=== PATIENT | male | born 1955 | race Caucasian/White ===

== ENCOUNTER 2020-01-31 14:26 | Outpatient (CLI) | payer OTHER, SELFPAY ==
--- NOTE | ~2020-01-31 | US_ITS ---
EXAMINATION: US scrotum doppler DATE: 01/31/2020 15:43 INDICATION: Testicular swelling. TECHNIQUE: Grayscale and Doppler ultrasound images of the testes were obtained. COMPARISON: None. FINDINGS: The right testis measures 2.7 x 2.9 x 2.9 cm. The left testis measures 4.1 x 3.0 x 3.4 cm. There is normal vascular flow to both testes. The right epididymis is normal with normal vascular hakeem w. The left epididymis is normal with normal vascular flow. There are small bilateral hydroceles. Scr otal skin thickening is noted. IMPRESSION: 1. Small bilateral hydroceles. Reviewed, dictated and finalized at location A.
--- NOTE | ~2020-01-31 | CT_ITS ---
EXAMINATION: CT abdomen pelvis w con DATE: 01/31/2020 15:58 INDICATION: Abdominal distention. TECHNIQUE: Computed tomography (CT) of the abdomen and pelvis was performed with 100 mL Omnipaque 350 intravenous contrast. Automated exposure control and iterative reconstruction technique were employe d. The dose-length product was 2237.52 mGy-cm. COMPARISON: None. FINDINGS: The visualized portions of the lung bases demonstrated mild atelectasis. No pleural effusio n. The heart size is normal. There are coronary artery calcifications. No pericardial effusion. The l iver is normal. Calcifications in the spleen are consistent with old granulomatous disease. The gallb ladder, pancreas, adrenal glands, and kidneys are normal. The prostate is mildly enlarged. There are no dilated loops of bowel. The appendix is normal. There are no pathologically enlarged lymph nodes. There is no free intraperitoneal fluid. There is a small umbilical hernia containing fat. There is rao bcutaneous fat stranding around the umbilical hernia, consistent with inflammation. There is mild tho racal lumbar spondylosis. IMPRESSION: 1. Small umbilical hernia containing fat. Reviewed, dictated and finalized at location A.
[2020-01-31 14:56] LABS: Basophils Absolute Auto 0.1 K/mm3 (0.0-0.1); Basophils Percent Auto 0.5 % (0.2-1.2); Eosinophils Absolute Auto 0.2 K/mm3 (0-0.3); Eosinophils Percent Auto 1.7 % (0-4.4); Hematocrit 42.2 % (42.0-52.0); Hemoglobin 13.5 g/dL (14.0-18.0); Immature Granulocyte Absolute 0.04 K/mm3 (0.00-0.031); Immature Granulocyte Percent A 0.4 % (0-0.5); Lymphocytes Absolute Auto 2.06 K/mm3 (0.9-3.2); Lymphocytes Percent Auto 20.4 % (18.3-44.2); Mean Corpuscular Hemoglobin 29.8 pg (26-34); Mean Corpuscular Volume 93.2 fl (80-100); Monocytes Absolute Auto 0.9 K/mm3 (0.1-0.6); Monocytes Percent Auto 8.9 % (2.6-8.5); Neutrophils Absolute Auto 6.9 K/mm3 (1.3-6.7); Neutrophils Percent Auto 68.1 % (45.5-73.1); Platelet Count Result 189 k/mm3 (150-375); Red Blood Count 4.53 M/mm3 (4.6-6.20); Red Cell Distribution Width 13.4 % (11.5-14.5); White Blood Count 10.1 K/mm3 (4.5-10.0)
[2020-01-31 15:07] LABS: Alanine Aminotransferase 23 U/L (4-50); Albumin Level 4.2 g/dL (3.5-5.1); Alkaline Phosphatase 98 U/L (38-126); Aspartate Amino Transferase 23 U/L (17-59); Bilirubin,Total 0.6 mg/dL (0.2-1.3); Blood Urea Nitrogen 19 mg/dL (9-20); Calcium 9.5 mg/dL (8.4-10.2); Carbon Dioxide 29 mmol/L (22-30); Chloride 104 mmol/L (98-107); Estimated Glomerular Filt Rate > 60; Glucose 149 mg/dL (75-110); Potassium 4.5 mmol/L (3.4-5.0); Sodium 141 mmol/L (137-145)
[2020-01-31 15:15] LABS: NT Pro B Type Natriuretic Pept 529 PG/ML (5-100)
== END 2020-01-31 14:27 | disposition home or self-care (01) ==
PROVIDERS: PCP Family Medicine; Visit Provider Family Medicine
DX: R14.0 Abdominal distension (gaseous) (principal); I25.10 Atherosclerotic heart disease of native coronary artery without angina pectoris; K42.9 Umbilical hernia without obstruction or gangrene; N43.3 Hydrocele, unspecified
CPT/HCPCS: 36415; 74177; 76870; 80053; 83880; 85025; 93976; Q9967

== ENCOUNTER 2020-06-25 10:02 | Inpatient (IN) | payer OTHER, SELFPAY ==
[2020-06-25] VITALS (7 sets, daily range): BP systolic 128–152; BP diastolic 55–83; PULSE 95–110; RESP 12–20; TEMP 36.4–36.6; O2SAT 94–99; BMI 60.9
--- NOTE | ~2020-06-25 | US_ITS ---
EXAMINATION: US scrotum doppler EXAM DATE: 06/25/2020 11:50 INDICATION: Scrotal edema, erythema, pain. TECHNIQUE: Multiple grayscale and Doppler images of the testicles and scrotum were obtained bilateral ly. There is no prior study for comparison. FINDINGS: There is severe scrotal edema. Right testicle measures 3.6 x 2.8 x 2.6 cm and is morphologically normal. Low resistance Doppler hakeem w confirmed. The epididymis is unremarkable. There is a small hydrocele. Left testicle measures 3.8 x 3.2 x 2.8 cm and is morphologically normal. Low resistance Doppler flow confirmed. The epididymis is unremarkable. There is a small hydrocele. IMPRESSION: 1. Severe scrotal edema. 2. Small bilateral hydroceles. 3. Normal testicles. Reviewed, dictated and finalized at location B.
--- NOTE | ~2020-06-25 | US_ITS ---
EXAMINATION: US venous doppler LE EXAM DATE: 06/25/2020 11:51 INDICATION: Bilateral lower extremity edema. Positive d-dimer. Recent surgery. TECHNIQUE: Multiple grayscale, color flow and Doppler images of the lower extremity deep venous syste ms bilaterally were obtained and reviewed. Comparison is made to prior examination from 08/31/2018. FINDINGS: Right side: The right common femoral, femoral veins demonstrate normal color flow, respiratory variat ion, augmentation and compressibility. Compressibility, color flow confirmed within the right poplit eal, posterior tibial, peroneal, and greater saphenous veins. Profunda vein not visualized. Left side: The left common femoral, femoral veins demonstrate normal color flow, respiratory variatio n, augmentation and compressibility. Compressibility, color flow confirmed within the left popliteal , posterior tibial, peroneal, and greater saphenous veins. Profunda vein not visualized. IMPRESSION: 1. No evidence of lower extremity deep venous thrombosis bilaterally. Reviewed, dictated and finalized at location B.
--- NOTE | ~2020-06-25 | US_ITS ---
EXAMINATION: US renal BI DATE: 06/30/2020 09:56 INDICATION: Acute kidney injury. TECHNIQUE: Multiple ultrasound grayscale images of the kidneys were obtained. COMPARISON: CT abdomen and pelvis 01/31/2020 FINDINGS: The right kidney measures 11.2 x 6.5 x 6.6 cm. The left kidney measures 14.3 x 5.8 x 3.5 cm. The kidn eys demonstrate normal parenchymal echogenicity. There is no hydronephrosis. The bladder is decompres sed. IMPRESSION: 1. Normal kidneys. No hydronephrosis. Reviewed, dictated and finalized at location B.
[2020-06-25 10:59] LABS: Basophils Absolute Auto 0.1 K/mm3 (0.0-0.1); Basophils Percent Auto 0.5 % (0.2-1.2); Eosinophils Absolute Auto 0.2 K/mm3 (0-0.3); Eosinophils Percent Auto 1.6 % (0-4.4); Hematocrit 36.4 % (42.0-52.0); Hemoglobin 12.1 g/dL (14.0-18.0); Immature Granulocyte Percent A 0.7 % (0-0.5); Lymphocytes Absolute Auto 4.68 K/mm3 (0.9-3.2); Lymphocytes Percent Auto 33.2 % (18.3-44.2); Mean Corpuscular HGB Conc 33.2 g/dl (32-36); Mean Corpuscular Hemoglobin 29.7 pg (26-34); Mean Corpuscular Volume 89.4 fl (80-100); Mean Platelet Volume 8.7 fl (7.4-10.4); Monocytes Absolute Auto 0.8 K/mm3 (0.1-0.6); Monocytes Percent Auto 5.8 % (2.6-8.5); Neutrophils Absolute Auto 8.2 K/mm3 (1.3-6.7); Neutrophils Percent Auto 58.2 % (45.5-73.1); Platelet Count Result 277 k/mm3 (150-375); Red Blood Count 4.07 M/mm3 (4.6-6.20); Red Cell Distribution Width 13.1 % (11.5-14.5); White Blood Count 14.1 K/mm3 (4.5-10.0)
--- NOTE | 2020-06-25 11:00 | ECG_ITS ---
Measurements Intervals [place] Rate: 99 P: 60 OR: 180 QRS: 31 QRSD: 81 T: 28 QT: 370 QTc: 476 Interpretive Statements SINUS RHYTHM LOW QRS VOLTAGE IN PRECORDIAL LEADS CANNOT RULE OUT SEPTAL INFARCT, AGE INDETERMINATE BASELINE ARTIFACT- V1, V5-V6 ABNORMAL ECG Electronically Signed On 06-25-2020 11:25:01 CDT by Mukesh Diallo D.O.
--- NOTE | 2020-06-25 11:00 | ED.GENADULT ---
HPI - General Adult General Chief complaint: Unspecified <Arianna Livingston PA-C - Last Filed: 06/25/20 13:58> Stated complaint: SCROTAL SWELLING <Arianna Livingston PA-C - Last Filed: 06/25/20 13:58> Time Seen by Provider: 06/25/20 10:11 <Arianna Livingston PA-C - Last Filed: 06/25/20 13:58> Source: patient <ALLI Emerson Last Filed: 06/25/20 13:58> Mode of arrival: wheelchair <ALLI Emerson Last Filed: 06/25/20 13:58> Limitations: no limitations <ALLI Emerson Last Filed: 06/25/20 13:58> History of Present Illness HPI narrative: This is a 64 year old male that presents to the ER for scrotal swelling x 5 days. Reports swelling, redness and pain to the area. Reports he is currently on antibiotics for a UTI. Reports the pain with urination has resolved, but he started to have the scrotal swelling. Reports chronic lower extremity edema. Worsened today. Reports he recently had a left shoulder replacement a week ago. Denies fever, chest pain, or shortness of breath. <Arianna Livingston PA-C - Last Filed: 06/25/20 13:58> Related Data Home medications: Home Medications Medication Instructions Recorded Confirmed aspirin 81 mg tablet,delayed 81 mg PO DAILY 01/31/20 06/11/20 release isosorbide mononitrate 30 mg 30 mg PO DAILY 01/31/20 06/11/20 tablet,extended release 24 hr lisinopril 20 mg tablet 20 mg PO DAILY 01/31/20 06/11/20 metoprolol succinate 25 mg 25 mg PO BID 01/31/20 06/11/20 tablet,extended release 24 hr nitroglycerin 0.4 mg sublingual 0.4 mg SUBLINGUAL Q5M 01/31/20 06/11/20 tablet ticagrelor 90 mg tablet 90 mg PO Q12H 01/31/20 06/11/20 atorvastatin 80 mg tablet 80 mg PO QPM tablet 02/26/20 06/11/20 blood sugar diagnostic #10 each 02/26/20 06/11/20 blood-glucose meter,continuous #1 each 02/26/20 06/11/20 gabapentin BID 06/25/20 <Arianna Livingston PA-C - Last Filed: 06/25/20 13:58> Allergies/adverse reactions: Allergies Allergy/AdvReac Type Severity Reaction Status Date / Time No Known Allergies Allergy Verified 06/25/20 10:38 <Arianna Livingston PA-C - Last Filed: 06/25/20 13:58> Review of Systems Review of Systems: Narrative: CONSTITUTIONAL: Denies fever CARDIOVASCULAR: Reports edema. Denies chest pain RESPIRATORY: Denies dyspnea. GENITOURINARY: Denies dysuria or hematuria. SKIN: Reports erythema <ALLI Emerson Last Filed: 06/25/20 13:58> All systems reviewed & are unremarkable except as noted in HPI and below <Arianna Livingston PA-C - Last Filed: 06/25/20 13:58> [facility] Social History Social History: Social History Smoking status: Former smoker Alcohol intake: current Gender identity (if verbalized by the patient): Male <ALLI Emerson Last Filed: 06/25/20 13:58> Exam Narrative: Exam Narrative: GENERAL: Well-appearing, obese, and in no acute distress. HEAD: Normocephalic, atraumatic. EYES: EOMI. CHEST: Clear to auscultation. No respiratory distress. No wheezes rales or rhonchi HEART: Regular rate and rhythm. No murmur heard. Normal peripheral pulses. ABDOMEN: Soft, nontender, nondistended, normal active bowel sounds. EXTREMITIES: Normal range of motion. No edema. SKIN: Warm, dry, no rash. NEURO: No focal deficits. Alert and oriented x3. PSYCH: Normal mood and affect MALE GENITAL: Diffuse scrotal edema with mild overlying redness <ALLI Emerson Last Filed: 06/25/20 13:58> Course MANAGER INTERFACE/PA Physician Supervision Attestation for Arianna Livingston at 1311. Patient comes in for swollen tender scrotum. He has had this previously at that time they gave him extra diuretic. He has not had fever or chills. [id number] with the patient for 10 minutes. He would like some pain medication. He has nausea but he thinks he would do well with some lunch. I explained about the IV antibiotics being stronger than what he is on no
[2020-06-25 11:08] LABS: Prothrombin Time 12.9 Seconds (11.1-14.7)
[2020-06-25 11:09] LABS: Partial Thromboplastin Time 30.2 SECONDS (22.3-36.8)
[2020-06-25 11:11] LABS: D Dimer 2.01 ug/mL (<0.48)
[2020-06-25 11:30] LABS: Anion Gap 10 mmol/L (8-16); Blood Urea Nitrogen 20 mg/dL (9-20); CRP 3.9 mg/dL (<1.0); Calcium 9.1 mg/dL (8.4-10.2); Carbon Dioxide 29 mmol/L (22-30); Chloride 93 mmol/L (98-107); Estimated CRCL calculation 134 ml/min; Estimated Glomerular Filt Rate > 60; Glucose 371 mg/dL (75-110); Sodium 132 mmol/L (137-145)
[2020-06-25 11:36] LABS: Erythrocyte Sedimentation Rate > 140 mm/hr (0-20)
[2020-06-25 11:44] LABS: NT Pro B Type Natriuretic Pept 154 PG/ML (5-100)
[2020-06-25 13:01] LABS: Add Urine Microscopic? YES; Appearance Urine Clear (Clear); Bilirubin Urine Negative (Negative); Blood Urine 2+ (Negative); Color Urine Yellow (Yellow); Glucose Urine UA 3+ mg/dL (Negative); Ketones Urine Negative (Negative); Leukocyte Esterase Ur Negative LEU/UL (Negative); Mucus Urine Rare /lpf; Nitrate Urine Negative (Negative); Protein Urine Negative (Negative); Specific Grav Ur 1.016 (1.001-1.035); Squamous Epithelial Cell Urine Few /hpf (Few); Urobilinogen Urine Negative mg/dL (<2.0); WBC Urine 0-3 /hpf
[2020-06-25 14:08] LABS: Glucose Point of Care 395 (65-105)
[2020-06-25] MEDS: INSULIN HUMAN REGULAR (*BKC) 100 UNITS/ML 15 UNITS SUB-Q (14:11)
[2020-06-25] MEDS: MORPHINE SULFATE 4 MG/ML INJ IV PUSH (14:13)
[2020-06-25] MEDS: SODIUM CHLORIDE 0.9% IV 1,000 ML 999 ML IV CONT (14:13)
[2020-06-25 14:26] LABS: Lactic Acid Reflex 1.2 mmol/L (0.7-2.1)
[2020-06-25 15:02] LABS: Glucose Point of Care 408 (65-105)
--- NOTE | 2020-06-25 15:36 | WPDURCON ---
Assessment and Plan Assessment and plan (1) Cellulitis of scrotum: Code(s): N49.2 - Inflammatory disorders of scrotum Status: Acute Assessment and Plan: Continue IV antibiotics, will continue to monitor. No surgical intervention needed as there doesn't appear to be an abscess present. (2) Microhematuria: Code(s): R31.29 - Other microscopic hematuria Status: Acute Assessment and Plan: Will send urine culture and obtain CT scan of upper tracts. Urology Consult Note HPI Date Seen: 06/25/20 Requesting Physician: Opal Camp MD Primary Care Provider: Jaya Dailey MD Consult Narrative Narrative: Hong Quinonez is a 64 year old male who presents to the ER today for a swollen scrotum that is red and painful. He states it started 5 days ago and has worsened. He has been on Ciprofloxacin for a UTI for 10 days, however his urine cultures continue to be negative. He is a poorly controlled diabetic patient, but states that this happened only one other time and diuretics took care of it, which he still takes orally. His WBC is 14.1, creatinine 0.80, UA shows 2+ blood and Scrotal US shows severe scrotal edema, small bilateral hydroceles and normal testicles. Review of Systems Cardiovascular: Cardiovascular: Denies chest pain Respiratory: Respiratory: Reports no additional respiratory complaints Gastrointestinal: Gastrointestinal: Denies abdominal pain, Denies nausea and Denies vomiting Genitourinary: Genitourinary: Denies dysuria, Denies flank pain, Reports scrotal swelling, Denies testicular pain, Denies urinary frequency and Denies urinary urgency [facility] Past Medical History Medical History Abdominal distention ASHD (arteriosclerotic heart disease) Congestive heart failure Depression with anxiety Essential (primary) hypertension Insomnia Leg edema PERLITA on CPAP Polyneuropathy, unspecified Pure hypercholesterolemia Type 2 diabetes mellitus without complication, with long-term current use of insulin Umbilical hernia Family History Family History Father Family history of malignant neoplasm Mother Family history of kidney disease Other Cerebrovascular accident Diabetes mellitus Family history of arthritis Family history of coronary artery disease Family history of elevated blood lipids Family history of glaucoma Family history of hypercholesterolemia Family history of obesity Hypertension Social History Social History Smoking status: Former smoker Alcohol intake: current Gender identity (if verbalized by the patient): Male Meds Home Medications and Allergies Home Medications Medication Instructions Recorded Confirmed Type aspirin 81 mg tablet,delayed 81 mg PO DAILY 01/31/20 06/11/20 History release isosorbide mononitrate 30 mg 30 mg PO DAILY 01/31/20 06/11/20 History tablet,extended release 24 hr lisinopril 20 mg tablet 20 mg PO DAILY 01/31/20 06/11/20 History metoprolol succinate 25 mg 25 mg PO BID 01/31/20 06/11/20 History tablet,extended release 24 hr nitroglycerin 0.4 mg sublingual 0.4 mg SUBLINGUAL Q5M 01/31/20 06/11/20 History tablet ticagrelor 90 mg tablet 90 mg PO Q12H 01/31/20 06/11/20 History atorvastatin 80 mg tablet 80 mg PO QPM tablet 02/26/20 06/11/20 History blood sugar diagnostic #10 each 02/26/20 06/11/20 History blood-glucose meter,continuous #1 each 02/26/20 06/11/20 History insulin lispro 100 unit/mL 230 - 260 unit CONTINUOUS 02/26/20 06/11/20 Rx subcutaneous solution SUBCUTANEOUS INFUSION DAILY 28 Days #80 ml furosemide 40 mg tablet 40 mg PO QAM #90 tablet 03/06/20 06/11/20 Rx sertraline 100 mg tablet 100 mg PO DAILY #90 tablet 03/24/20 06/11/20 Rx ciprofloxacin HCl 500 mg tablet 500 mg PO Q12H #42 tablet 06/11/20 06/11/20 Rx metolazo
--- NOTE | 2020-06-25 16:32 | ADMGEN ---
This patient, Hong Quinonez, was admitted to 2 Medical Room 254-01. Patient/family oriented to hospital policies and general routines including ID bracelet, bed and alarms, visiting hours, pain management, procedures, bathroom and other care routines, personal items, smoking policy, room service/diet, and visiting hours. Valuables list has been completed. Information on how to activate the Rapid Response Team has been discussed. Patient/Family are encouraged to report perceived risks to care and to ask questions if they do not understand what they are told or what they should do.
[2020-06-25 17:11] LABS: Glucose Point of Care 325 (65-105)
[2020-06-25 18:33] LABS: Glucose Point of Care 219 (65-105)
--- NOTE | 2020-06-25 19:40 | PM.IMHP ---
H&P: HPI History of Present Illness Date/Time: 06/25/20 19:40 Chief complaint: Scrotal cellulitis Narrative: Hong Quinonez is a 64 year old male who has a history of congestive heart and diabetes. The patient has had a scrotal infection in the past and was treated with Keflex outpatient. According to the urology note the patient had been started on Cipro for UTI for 10 days and that his scrotum has gotten more swollen last 5 days. The patient does take diuretics for lower extremity edema and abdominal edema 1st congestive heart failure. He was prescribed a Zaiz scrotal support here but is a large will not fit him. He said he has pain when he urinates. He has the scrotal swelling and lower extremity swelling patient had his left shoulder replaced about 1 week ago at [facility]. He denies any fever chills. His left arm is in a sling. His white count is 14.1. Scrotal ultrasound was seen as severe scrotal edema. Small bilateral hydroceles. Normal testes. Urology has been consulted and has already seen the patient they are agreeable with the antibiotics. Patient is lower extremities were discolored and a venous Doppler was ordered there was no evidence of lower extremity deep vein thrombosis bilaterally. The patient is on Lasix and says that he takes it every day as prescribed. He was started on Primaxin and vancomycin since he is diabetic. His blood sugars were noted to be in the 300s. The patient has an insulin pump and we had a long discussion about what to do with his blood sugars. The patient stated that he can continue to give himself boluses every couple hours. The patient stated that he would rather manage his himself and that he does not want us to manage it so he did sign the agreement that he would be managing added himself with the pump. His blood sugars then came down in the 200s. As CT of the abdomen with and without contrast has been ordered. I spent approximately 50 minutes with this patient date of service is 06/25/2020 Review of Systems Review of Systems: All systems reviewed & are unremarkable except as noted in HPI and below Constitutional: Constitutional: Reports as per HPI and Reports no additional constitutional complaints Eyes: Eyes: Reports as per HPI and Reports no additional eye complaints ENT: Reports system reviewed and no additional complaints, except as documented and Reports Normal hearing present Cardiovascular: Cardiovascular: Reports no additional cardiovascular complaints Respiratory: Respiratory: Reports no additional respiratory complaints and Reports no additional respiratory complaints Gastrointestinal: Gastrointestinal: Reports as per HPI and Reports no additional gastrointestinal complaints Musculoskeletal: Musculoskeletal: Reports no additional musculoskeletal complaints Integumentary/Breasts: Skin/Breast: Reports system reviewed and no additional complaints, except as docu and Reports as per HPI Neurologic: Reports system reviewed and no additional complaints, except as documented, Reports as per HPI and Reports Normal hearing present Psychiatric: Psychiatric: Reports no additional psychiatric complaints and Reports as per HPI Endocrine: Endocrine: Reports no additional endocrine complaints Hematologic/Lymphatic: Hematologic/Lymphatic: Reports no additional hematologic/lymphatic complaints Allergic/Immunologic: Allergic/Immunologic: Reports no additional allergic/immunologic complaints [facility] Past Medical History Medical History (Updated 06/25/20 @ 20:12 by Nel Henriquez NP) Abdominal distention ASHD (arteriosclerotic heart disease) CAD (coronary artery disease) Congestive heart failure Depression Depression with anxiety Essential (primary) hypertension Hyperlipidemia Insomnia Leg edema PERLITA on CPAP Polyneuropathy, unspecified Pure hypercholesterolemia Type 2 diabetes mellitus without complication, with long-term current use of insulin Umbilical hernia Surgical H
[2020-06-25] MEDS: CALCIUM CARBONATE (TUMS) 500 MG (200 MG ELEMENTAL) PO (21:18)
[2020-06-25] MEDS: oxyCODONE/ACETAMINOPHEN 5-325 MG TABLET 1 TABLET PO (21:18)
[2020-06-25] MEDS: TICAGRELOR 90 MG TABLET PO (21:18)
[2020-06-25 23:31] LABS: Glucose Point of Care 194 (65-105)
--- NOTE | 2020-06-26 | ECHO_ITS ---
Patient Info Name: Hong Quinonez Age: 64 years : 1955 Gender: Male Ht: 68 in Wt: 400 lbs BSA: 3.07 m2 HR: 93 bpm BP: 138 / 64 mmHg Technical Quality: Poor Exam Date: 06/26/2020 9:25 AM Exam Location: [facility] Patient Status: Inpatient Admit Date: 06/25/2020 Staff Ordering Physician: Nel Henriquez NP Maintenance And Operations Supervisor: Lisa Ellison RDCS Attending Provider: Opal Camp MD Referring Physician: Martinez SHOOK; Exam Type: CA echo limited w contrast Study Info Indications I50.9 - Heart failure, unspecified ECHO LIMITED WITH CONTRAST. Reason for Poor Study: patient body habitus Summary 1. Technically suboptimal study due to poor sonographic images. 2. Left ventricular chamber dimension is mildly enlarged. 3. Left ventricular systolic function is normal, estimated at 60-65%. 4. Definity contrast administered improved wall motion interpretation. 5. There is mildly increased left ventricular wall thickness. 6. The left ventricular diastolic function is grade I diastolic dysfunction. 7. Left atrial chamber dimension is mildly enlarged. 8. No pulmonary hypertension, estimated pulmonary arterial systolic pressure is 21 mmHg. Left Ventricle Tissue doppler is not performed. Technically suboptimal study due to poor sonographic images. Definity contrast administered improved wall motion interpretation. Left ventricular chamber dimension is mildly enlarged. Left ventricular systolic function is normal, estimated at 60-65%. There is mildly increased left ventricular wall thickness. The left ventricular diastolic function is grade I diastolic dysfunction. Right Ventricle Right ventricular chamber dimension is not well visualized. Left Atria Left atrial chamber dimension is mildly enlarged. Right Atria Right atrial chamber dimension is not well visualized. Aortic Valve The aortic valve is not well visualized. There is no aortic valve stenosis. There is no aortic valve regurgitation. Pulmonic Valve The pulmonic valve is not well visualized. Mitral Valve There is no mitral valve stenosis. There is no mitral valve regurgitation. Tricuspid Valve The tricuspid valve leaflets are not well visualized. There is no tricuspid valve regurgitation. No pulmonary hypertension, estimated pulmonary arterial systolic pressure is 21 mmHg. Pericardium/Pleural There is no pericardial effusion. Aorta The aortic root size at the sinus of Valsalva is normal. Left Ventricular Outflow Tract Name Value Normal LVOT 2D LVOT Diameter 2.2 cm Pulmonic Valve Name Value Normal PV Doppler PV Peak Gradient 4 mmHg Mitral Valve Name Value Normal MV Doppler MV
--- NOTE | 2020-06-26 01:17 | PC.NURSE ---
pt. left floor at 12:35 for CTA. pt. returned to floor at 01:04.
[2020-06-26 05:50] LABS: Basophils Absolute Auto 0.1 K/mm3 (0.0-0.1); Basophils Percent Auto 0.4 % (0.2-1.2); Eosinophils Absolute Auto 0.2 K/mm3 (0-0.3); Eosinophils Percent Auto 1.2 % (0-4.4); Hematocrit 36.5 % (42.0-52.0); Hemoglobin 12.3 g/dL (14.0-18.0); Immature Granulocyte Absolute 0.13 K/mm3 (0.00-0.031); Immature Granulocyte Percent A 0.8 % (0-0.5); Lymphocytes Absolute Auto 5.12 K/mm3 (0.9-3.2); Mean Corpuscular HGB Conc 33.7 g/dl (32-36); Mean Corpuscular Hemoglobin 29.6 pg (26-34); Mean Platelet Volume 8.6 fl (7.4-10.4); Monocytes Percent Auto 5.9 % (2.6-8.5); Neutrophils Percent Auto 60.7 % (45.5-73.1); Platelet Count Result 302 k/mm3 (150-375); Red Blood Count 4.15 M/mm3 (4.6-6.20); Red Cell Distribution Width 12.8 % (11.5-14.5); White Blood Count 16.5 K/mm3 (4.5-10.0)
[2020-06-26 06:00] VITALS: BP 138/64; PULSE 93; RESP 16; TEMP 36.4; O2SAT 96
[2020-06-26 06:00] LABS: Hemoglobin A1C 8.8 % (<5.7)
[2020-06-26 06:06] LABS: Estimated CRCL calculation 152 ml/min; Estimated Glomerular Filt Rate > 60; Lactate Dehydrogenase 456 U/L (313-618); Lactic Acid 1.3 mmol/L (0.7-2.1)
[2020-06-26 06:33] LABS: Glucose Point of Care 251 (65-105)
--- NOTE | 2020-06-26 08:35 | WPDUROPN2 ---
Progress Note: A&P Assessment and Plan (1) Microhematuria: Code(s): R31.29 - Other microscopic hematuria Status: Acute Assessment and Plan: Will evaluate CT results, then recommend follow up in the office for a cystoscope if hematuria continues. (2) Cellulitis of scrotum: Code(s): N49.2 - Inflammatory disorders of scrotum Status: Acute Assessment and Plan: Continue IV antibiotics, tailor to culture results. Patient's tachycardia has improved today, however is WBC has slightly increased. Scrotum is much less tender on exam today, however the edema has not improved. Continue to elevated scrotum. Will continue to monitor. Subjective Subjective Date/Time Seen: 06/26/20 08:35 Cellulitis of Scrotum/Microhematuria Review of Systems Cardiovascular: Cardiovascular: Denies chest pain Respiratory: Respiratory: Reports no additional respiratory complaints Gastrointestinal: Gastrointestinal: Denies abdominal pain, Denies nausea and Denies vomiting Genitourinary: Genitourinary: Reports genital pain, Denies dysuria, Denies flank pain, Reports scrotal swelling, Denies urinary frequency and Denies urinary hesitancy Exam Resp: Effort & Inspection: normal respiratory effort Cardio: Rate: regular rate GI: GI Palp: Yes Soft to palpation and No Tenderness to palpation present (GI) : Scrotum: no ecchymosis, edematous and scrotal swelling Extrem: General: no edema Objective Data Vital Signs Vital Signs: Vital Signs - 24 hr 06/25/20 10:18 06/25/20 10:21 06/25/20 10:35 Temperature 97.5 F L Pulse Rate 99 99 Respiratory Rate 16 16 Blood Pressure Pulse Oximetry 99 98 06/25/20 13:58 06/25/20 14:57 06/25/20 15:27 Temperature 97.8 F Pulse Rate 104 H 95 110 H Respiratory Rate 20 16 17 Blood Pressure 134/65 152/83 H 144/72 H Pulse Oximetry 97 94 97 06/25/20 21:14 06/26/20 06:00 Temperature 97.6 F 97.6 F Pulse Rate 100 93 Respiratory Rate 12 16 Blood Pressure 128/55 L 138/64 Pulse Oximetry 96 96 Intake/Output Intake/Output: Intake & Output 06/23/20 06/24/20 06/25/20 06/26/20 23:59 23:59 23:59 23:59 Intake Total 2340 1450 Output Total 1100 670 Balance 1240 780 Meds/Results Medications: Active Medications Generic Name Dose Route Start Last Admin Trade Name Freq PRN Reason Stop Dose Admin Aspirin 81 mg 06/26/20 09:00 Aspirin Ec PO DAILY [facility] Atorvastatin Calcium 80 mg 06/26/20 18:00 Lipitor PO QPM ADALBERTO Calcium Carbonate 200 mg 06/25/20 20:47 06/25/20 21:18 Tums PO 200 mg Q6H PRN Administration Indigestion Gabapentin 800 mg 06/26/20 09:00 Neurontin PO BID ADALBERTO Imipenem/Cilastatin Sodium 500 mg in 100 mls @ 300 mls/hr 06/25/20 18:00 06/26/20 06:35 Primaxin 500 Mg/D5w 100 Ml IVPB Infused Q6HR ADALBERTO Infusion Vancomycin HCl 2,000 mg in 500 mls @ 250 mls/hr 06/26/20 02:00 06/26/20 03:55 Vancomycin 2,000 Mg/D5w 500 Ml IVPB Infused Q12H ADALBERTO Infusion Insulin Human Regular 230 - 260 each 06/26/20 08:00 Home Medication Insulin SUB-Q ACINSULIN [facility] Isosorbide Mononitrate 30 mg 06/26/20 09:00 Imdur PO DAILY [facility] Lisinopril 20 mg 06/26/20 09:00 Prinivil PO DAILY [facility] Metolazone 5 mg 06/26/20 09:00 Zaroxolyn PO DAILY [facility] Metoprolol Succinate 25 mg 06/26/20 09:00 Toprol Xl PO Q12HR [facility] Sertraline HCl 100 mg 06/26/20 09:00 Zoloft PO DAILY [facility] Ticagrelor 90 mg 06/25/20 21:00 06/25/20 21:18 Brilinta PO 90 mg Q12HR ADALBERTO Administration Radiology Results: ITS Impressions Venous Doppler Study 06/25/20 11:53 IMPRESSION: 1. No evidence of lower extremity deep venous thrombosis bilaterally. Scrotum Ultrasound 06/25/20 11:54 IMPRESSION: 1. Severe scrotal edema. 2. Small bilateral hydroceles. 3. Normal testicles. Labs Labs: Laboratory Results - last 24 hr 06/25/20 0
[2020-06-26 09:10] VITALS: PULSE 93
[2020-06-26] MEDS: ASPIRIN 81 MG ENTERIC TABLET PO (09:10)
[2020-06-26] MEDS: GABAPENTIN 400 MG CAPSULE 800 MG PO ×2 (09:10→17:31)
[2020-06-26] MEDS: METOPROLOL SUCCINATE EXT REL 25 MG TABCR PO ×2 (09:10→20:10)
[2020-06-26] MEDS: ISOSORBIDE MONONITRATE 30 MG TAB.ER.24H PO (09:10)
[2020-06-26] MEDS: lisinopriL 20 MG TABLET PO (09:11)
[2020-06-26] MEDS: SERTRALINE HCL 50 MG TABLET 100 MG PO (09:11)
[2020-06-26] MEDS: metOLazone 5 MG TABLET PO (09:11)
[2020-06-26] MEDS: TICAGRELOR 90 MG TABLET PO ×2 (09:11→20:10)
[2020-06-26] MEDS: PERFLUTREN LIPID MICROSPHERES 1.5 ML VIAL DILUTED TO 10 ML TOTAL VOLUME IV PUSH (09:54)
[2020-06-26] MEDS: CALCIUM CARBONATE (TUMS) 500 MG (200 MG ELEMENTAL) PO (10:06)
[2020-06-26 11:39] LABS: Glucose Point of Care 269 (65-105)
[2020-06-26] MEDS: FUROSEMIDE INJ 40 MG/4 ML VIAL IV PUSH (11:55)
--- NOTE | 2020-06-26 13:17 | PM.IMPN ---
Progress Note: A&P Assessment and Plan (1) Cellulitis of scrotum: Code(s): N49.2 - Inflammatory disorders of scrotum Status: Acute Assessment and Plan: continue with Primaxin and vancomycin. Urology has seen the patient. He is too big to be able to wear the scrotal support at this time. I encouraged patient to keep his feet above his head. Blood and urine cultures are pending. 06/26/20 13:17 Patient is 64-year-old male morbidly obese with BMI of 60 past medical history of type 1 diabetes on insulin pump, congestive heart failure S/P left shoulder surgery about a week ago and Pt has history of scrotal cellulitis, presented to emergency department with a complaint of redness swelling and tenderness along his scrotum patient had a ultrasound it showed 1. Severe scrotal edema. 2. Small bilateral hydrocele and normal testicle, patient is diagnosed with cellulitis and being treated with vancomycin and imipenem, with extensive edema along his scrotum and pelvis will start the patient on IV Lasix to help in diureses as well as restrict fluid intake to 1800 cc per day, seen by urologist agree with the current management and ordered CT scan of the pelvis however patient is quite morbidly obese and he has a pain and is left shoulder unable to do the imaging. plan is to continue to monitor hopefully with diuresing and antibiotics will improve his symptoms. (2) Congestive heart failure: Qualifiers: Heart failure type: unspecified Heart failure chronicity: chronic Qualified Code(s): I50.9 - Heart failure, unspecified Code(s): I50.9 - Heart failure, unspecified Status: Chronic Assessment and Plan: I did order an echo and a changes Lasix to IV. He is on isosorbide as well and lisinopril. He is also on metoprolol. he is also on Zaroxolyn. (3) Morbid obesity: Code(s): E66.01 - Morbid (severe) obesity due to excess calories Status: Acute Assessment and Plan: Patient's BMI is 60. He may need some dietary counseling. I saw that he had had some in the past. (4) Essential (primary) hypertension: Code(s): I10 - Essential (primary) hypertension Status: Acute Assessment and Plan: Continue with metoprolol. I changes Lasix to IV. He is also on lisinopril (5) PERLITA on CPAP: Code(s): G47.33 - Obstructive sleep apnea (adult) (pediatric); Z99.89 - Dependence on other enabling machines and devices Status: Acute Assessment and Plan: Continue with CPAP machine (6) Type 2 diabetes mellitus without complication, with long-term current use of insulin: Code(s): E11.9 - Type 2 diabetes mellitus without complications; Z79.4 - FDC (current) use of insulin Status: Acute Assessment and Plan: patient made an agreement with us that he would use his insulin pump we do have a down in the 200s now. He will be monitoring his blood sugars and he will bolus himself with his insulin pump. He has a continues basal rate. He also has the ability to bolus himself as well. (7) Hyperlipidemia: Code(s): E78.5 - Hyperlipidemia, unspecified Status: Chronic Assessment and Plan: Continue with atorvastatin (8) CAD (coronary artery disease): Code(s): I25.10 - Atherosclerotic heart disease of [place] coronary artery without angina pectoris Status: Chronic Assessment and Plan: patient is on Brilinta, aspirin and isosorbide. He is also on metoprolol. He has had a total of 4 stents. (9) Depression: Code(s): F32.9 - Major depressive disorder, single episode, unspecified Status: Chronic Assessment and Plan: continue with Zoloft. Additional Plan Patient had left shoulder surgery approximately 1 week ago at [facility] the area looks well approximated without any signs and symptoms of infection. Subjective Date/time seen: 06/26/20 13:17 Patient is 64-year-old male morbidly obese with BMI of 60 pa
--- NOTE | 2020-06-26 13:26 | PCDIET ---
Nutrition Consult Complete: Pt current nutrition is [facility] Nutrition recommendation: Agree Last recorded weight is 181.7 kg. Labs Reviewed: 8.8 A1c Additional Notes: Pt here on insulin pump with A1c of 8.8. Pt states he understands [facility] diet. Pt eats three meals a day and states he eats less than he used to. He was having pot roast with broccoli today. Pt encouraged to limit carbs to 60g or under at each meal and focus on protein and non-starchy veggies. Pt encouraged to eat at regular intervals. Pt declined handouts or further edu and states he understands where carbs are found and how they effect blood sugar. Thank you for the consult.
[2020-06-26 14:00] VITALS: BP 118/54; PULSE 92; RESP 16; TEMP 36.5; O2SAT 97
[2020-06-26 16:35] LABS: Glucose Point of Care 365 (65-105)
[2020-06-26] MEDS: ATORVASTATIN 40 MG TABLET 80 MG PO (17:31)
[2020-06-26] MEDS: INSULIN ASPART (*BKC) 100 UNITS/ML 300 UNITS XX (18:43)
[2020-06-26 20:10] VITALS: PULSE 90
[2020-06-26 20:20] VITALS: BP 108/57; PULSE 90; RESP 12; TEMP 37; O2SAT 98
[2020-06-26 20:47] LABS: Glucose Point of Care 390 (65-105)
[2020-06-27 01:44] LABS: Vancomycin Trough 16.3 ug/mL (10.0-20.0)
[2020-06-27 03:07] LABS: Glucose Point of Care 330 (65-105)
[2020-06-27 05:11] LABS: Basophils Absolute Auto 0.1 K/mm3 (0.0-0.1); Basophils Percent Auto 0.4 % (0.2-1.2); Eosinophils Absolute Auto 0.2 K/mm3 (0-0.3); Eosinophils Percent Auto 1.3 % (0-4.4); Hematocrit 37.8 % (42.0-52.0); Hemoglobin 12.5 g/dL (14.0-18.0); Immature Granulocyte Absolute 0.13 K/mm3 (0.00-0.031); Immature Granulocyte Percent A 0.8 % (0-0.5); Lymphocytes Absolute Auto 5.38 K/mm3 (0.9-3.2); Lymphocytes Percent Auto 34.3 % (18.3-44.2); Mean Corpuscular HGB Conc 33.1 g/dl (32-36); Mean Corpuscular Hemoglobin 29.7 pg (26-34); Mean Corpuscular Volume 89.8 fl (80-100); Mean Platelet Volume 8.7 fl (7.4-10.4); Monocytes Absolute Auto 1.1 K/mm3 (0.1-0.6); Neutrophils Absolute Auto 8.8 K/mm3 (1.3-6.7); Neutrophils Percent Auto 56.2 % (45.5-73.1); Platelet Count Result 313 k/mm3 (150-375); Red Blood Count 4.21 M/mm3 (4.6-6.20); Red Cell Distribution Width 13.2 % (11.5-14.5); White Blood Count 15.7 K/mm3 (4.5-10.0)
[2020-06-27 05:30] LABS: Anion Gap 9 mmol/L (8-16); Blood Urea Nitrogen 18 mg/dL (9-20); Calcium 9.5 mg/dL (8.4-10.2); Carbon Dioxide 32 mmol/L (22-30); Chloride 89 mmol/L (98-107); Estimated CRCL calculation 134 ml/min; Estimated Glomerular Filt Rate > 60; Glucose 353 mg/dL (75-110); Potassium 3.9 mmol/L (3.4-5.0); Sodium 130 mmol/L (137-145)
[2020-06-27 06:00] VITALS: BP 108/69; PULSE 78; RESP 18; TEMP 36.4; O2SAT 97
[2020-06-27 06:57] LABS: Glucose Point of Care 351 (65-105)
[2020-06-27] MEDS: ISOSORBIDE MONONITRATE 30 MG TAB.ER.24H PO (07:56)
[2020-06-27] MEDS: ASPIRIN 81 MG ENTERIC TABLET PO (07:56)
[2020-06-27] MEDS: lisinopriL 20 MG TABLET PO (07:56)
[2020-06-27] MEDS: SERTRALINE HCL 50 MG TABLET 100 MG PO (07:56)
[2020-06-27] MEDS: metOLazone 5 MG TABLET PO (07:56)
[2020-06-27 07:57] VITALS: PULSE 78
[2020-06-27] MEDS: TICAGRELOR 90 MG TABLET PO ×2 (07:57→20:28)
[2020-06-27] MEDS: METOPROLOL SUCCINATE EXT REL 25 MG TABCR PO ×2 (07:57→20:27)
[2020-06-27] MEDS: GABAPENTIN 400 MG CAPSULE 800 MG PO ×2 (07:57→17:18)
[2020-06-27] MEDS: FUROSEMIDE INJ 40 MG/4 ML VIAL IV PUSH ×2 (07:57→17:18)
--- NOTE | 2020-06-27 08:52 | WPDUROPN2 ---
Progress Note: A&P Assessment and Plan (1) Morbid obesity: Code(s): E66.01 - Morbid (severe) obesity due to excess calories Status: Acute (2) Scrotal swelling: Code(s): N50.89 - Other specified disorders of the male genital organs Status: Acute Assessment and Plan: This is likely just scrotal edema versus cellulitis, his WBC is improving slightly, but the overall edema is not, it is not red or warm to touch as it would be with cellulitis, there are also no abscess's present. We discussed that this can take weeks of elevation to resolve despite being on lasix. No further intervention planned at this time, will have him follow up in the office. I encouraged scrotal elevation as much as possible to relieve the edema, as well as weight loss. (3) Microhematuria: Code(s): R31.29 - Other microscopic hematuria Status: Acute Assessment and Plan: Unable to get CT done d/t his shoulder immobility and body habitus. Will address down the road if he is able to loose weight or we can send him to [place] to get it done. No further evaluation at this time. Subjective Subjective Date/Time Seen: 06/27/20 08:52 Scrotal Edema No improvement Review of Systems Cardiovascular: Cardiovascular: Denies chest pain Respiratory: Respiratory: Reports no additional respiratory complaints Gastrointestinal: Gastrointestinal: Denies abdominal pain, Denies nausea and Denies vomiting Genitourinary: Genitourinary: Reports scrotal swelling, Denies testicular pain, Denies urinary frequency and Denies urinary urgency Exam Resp: Effort & Inspection: normal respiratory effort Cardio: Rate: regular rate GI: GI Palp: No Soft to palpation and No Tenderness to palpation present (GI) : General: Yes no CVA tenderness Scrotum: edematous, no masses and scrotal swelling Extrem: General: no edema Objective Data Vital Signs Vital Signs: Vital Signs - 24 hr 06/26/20 09:10 06/26/20 14:00 06/26/20 20:10 Temperature 97.7 F Pulse Rate 93 92 90 Respiratory Rate 16 Blood Pressure 118/54 L Pulse Oximetry 97 06/26/20 20:20 06/27/20 06:00 06/27/20 07:57 Temperature 98.6 F 97.6 F Pulse Rate 90 78 78 Respiratory Rate 12 18 Blood Pressure 108/57 L 108/69 Pulse Oximetry 98 97 Intake/Output Intake/Output: Intake & Output 06/24/20 06/25/20 06/26/20 06/27/20 23:59 23:59 23:59 23:59 Intake Total 2340 2980 600 Output Total 1100 670 Balance 1240 2310 600 Meds/Results Medications: Active Medications Generic Name Dose Route Start Last Admin Trade Name Freq PRN Reason Stop Dose Admin Hydrocodone Bitart/Acetaminophen 1 tab 06/26/20 10:26 06/27/20 07:51 [place] 7.5-325 Mg PO 1 tab Q6H PRN Administration Pain Rated 7-10 Aspirin 81 mg 06/26/20 09:00 06/27/20 07:56 Aspirin Ec PO 81 mg DAILY ADALBERTO Administration Atorvastatin Calcium 80 mg 06/26/20 18:00 06/26/20 17:31 Lipitor PO 80 mg QPM ADALBERTO Administration Calcium Carbonate 200 mg 06/25/20 20:47 06/26/20 10:06 Tums PO 200 mg Q6H PRN Administration Indigestion Furosemide 40 mg 06/26/20 10:55 06/27/20 07:57 Lasix Inj IV PUSH 40 mg DAILY ADALBERTO Administration Gabapentin 800 mg 06/26/20 09:00 06/27/20 07:57 Neurontin PO 800 mg BID ADALBERTO Administration Imipenem/Cilastatin Sodium 500 mg in 100 mls @ 300 mls/hr 06/25/20 18:00 06/27/20 05:30 Primaxin 500 Mg/D5w 100 Ml IVPB Infused Q6HR ADALBERTO Infusion Vancomycin HCl 2,000 mg in 500 mls @ 250 mls/hr 06/26/20 02:00 06/27/20 03:50 Vancomycin 2,000 Mg/D5w 500 Ml IVPB Infused Q12H ADALBERTO Infusion Insulin Human Regular 230 - 260 each 06/26/20 08:00 Home Medication Insulin SUB-Q ACINSULIN ADALBERTO Isosorbide Mononitrate 30 mg 06/26/20 09:00 06/27/20 07:56 Imdur PO 30 mg DAILY ADALBERTO Administration Lisinopril 20 mg 06/26/20 09:00 06/27/20 07:56 Prinivil PO 20 mg DAILY ADALBERTO Adm
[2020-06-27 09:10] LABS: Glucose Point of Care 342 (65-105)
[2020-06-27 10:40] VITALS: BMI 60.9
[2020-06-27 12:03] LABS: Glucose Point of Care 399 (65-105)
[2020-06-27] MEDS: POTASSIUM CHLORIDE 20 MEQ TABLET PO (12:36)
--- NOTE | 2020-06-27 13:55 | PM.IMPN ---
Progress Note: A&P Assessment and Plan (1) Cellulitis of scrotum: Code(s): N49.2 - Inflammatory disorders of scrotum Status: Acute Assessment and Plan: continue with Primaxin and vancomycin. Urology has seen the patient. He is too big to be able to wear the scrotal support at this time. I encouraged patient to keep his feet above his head. Blood and urine cultures are pending. 06/27/20 13:55 Patient is 64-year-old male morbidly obese with BMI of 60 past medical history of type 1 diabetes on insulin pump, congestive heart failure S/P left shoulder surgery about a week ago and Pt has history of scrotal cellulitis, presented to emergency department with a complaint of redness swelling and tenderness along his scrotum patient had a ultrasound it showed 1. Severe scrotal edema. 2. Small bilateral hydrocele and normal testicle, patient is diagnosed with cellulitis and being treated with vancomycin and imipenem, with extensive edema along his scrotum and pelvis started the patient on IV Lasix 40mg daily to help in diureses as well as restrict fluid intake to 1800 cc per day, seen by urologist agree with the current management, today Lasix 40 mg IV there is not significant increasing urine output or decrease in edema, will go ahead increase Lasix 40 mg IV b.i.d. will continue to monitor, encourage patient to participate in physical therapy and further recommendation to follow (2) Congestive heart failure: Qualifiers: Heart failure type: unspecified Heart failure chronicity: chronic Qualified Code(s): I50.9 - Heart failure, unspecified Code(s): I50.9 - Heart failure, unspecified Status: Chronic Assessment and Plan: I did order an echo and a changes Lasix to IV. He is on isosorbide as well and lisinopril. He is also on metoprolol. he is also on Zaroxolyn. (3) Morbid obesity: Code(s): E66.01 - Morbid (severe) obesity due to excess calories Status: Acute Assessment and Plan: Patient's BMI is 60. He may need some dietary counseling. I saw that he had had some in the past. (4) Essential (primary) hypertension: Code(s): I10 - Essential (primary) hypertension Status: Acute Assessment and Plan: Continue with metoprolol. I changes Lasix to IV. 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 He will be monitoring his blood sugars and he will bolus himself with his insulin pump. He has a continues basal rate. He also has the ability to bolus himself as well. (7) Hyperlipidemia: Code(s): E78.5 - Hyperlipidemia, unspecified Status: Chronic Assessment and Plan: Continue with atorvastatin (8) CAD (coronary artery disease): Code(s): I25.10 - Atherosclerotic heart disease of [place] coronary artery without angina pectoris Status: Chronic Assessment and Plan: patient is on Brilinta, aspirin and isosorbide. He is also on metoprolol. He has had a total of 4 stents. (9) Depression: Code(s): F32.9 - Major depressive disorder, single episode, unspecified Status: Chronic Assessment and Plan: continue with Zoloft. Additional Plan Patient had left shoulder surgery approximately 1 week ago at [facility] the area looks well approximated without any signs and symptoms of infection. Subjective Date/time seen: 06/27/20 13:55 Patient is 64-year-old male
[2020-06-27 14:00] VITALS: BP 157/72; PULSE 94; RESP 18; TEMP 36.6; O2SAT 98
[2020-06-27] MEDS: INSULIN ASPART (*BKC) 100 UNITS/ML 300 UNITS XX (14:25)
[2020-06-27] MEDS: ATORVASTATIN 40 MG TABLET 80 MG PO (17:19)
[2020-06-27 18:33] LABS: Glucose Point of Care 356 (65-105)
[2020-06-27 20:00] VITALS: PULSE 78; RESP 18; O2SAT 98
[2020-06-27 20:27] VITALS: PULSE 78
[2020-06-27 21:25] VITALS: BP 117/54; PULSE 94; RESP 20; TEMP 36.4; O2SAT 99
[2020-06-27 21:36] LABS: Glucose Point of Care 392 (65-105)
[2020-06-28 05:27] LABS: Basophils Absolute Auto 0.1 K/mm3 (0.0-0.1); Basophils Percent Auto 0.5 % (0.2-1.2); Eosinophils Absolute Auto 0.3 K/mm3 (0-0.3); Eosinophils Percent Auto 1.5 % (0-4.4); Hematocrit 35.2 % (42.0-52.0); Immature Granulocyte Absolute 0.14 K/mm3 (0.00-0.031); Immature Granulocyte Percent A 0.8 % (0-0.5); Lymphocytes Absolute Auto 6.07 K/mm3 (0.9-3.2); Lymphocytes Percent Auto 36.6 % (18.3-44.2); Mean Corpuscular HGB Conc 34.1 g/dl (32-36); Mean Corpuscular Hemoglobin 29.8 pg (26-34); Mean Corpuscular Volume 87.3 fl (80-100); Mean Platelet Volume 8.4 fl (7.4-10.4); Monocytes Absolute Auto 1.2 K/mm3 (0.1-0.6); Monocytes Percent Auto 7.4 % (2.6-8.5); Neutrophils Absolute Auto 8.8 K/mm3 (1.3-6.7); Neutrophils Percent Auto 53.2 % (45.5-73.1); Platelet Count Result 303 k/mm3 (150-375); Red Blood Count 4.03 M/mm3 (4.6-6.20); Red Cell Distribution Width 12.8 % (11.5-14.5); White Blood Count 16.6 K/mm3 (4.5-10.0)
[2020-06-28 05:39] LABS: Anion Gap 10 mmol/L (8-16); Blood Urea Nitrogen 26 mg/dL (9-20); Calcium 9.3 mg/dL (8.4-10.2); Carbon Dioxide 30 mmol/L (22-30); Chloride 91 mmol/L (98-107); Estimated CRCL calculation 109 ml/min; Estimated Glomerular Filt Rate > 60; Glucose 130 mg/dL (75-110); Potassium 3.5 mmol/L (3.4-5.0); Sodium 131 mmol/L (137-145)
[2020-06-28 06:00] VITALS: BP 138/64; PULSE 88; RESP 18; TEMP 36.4; O2SAT 98
[2020-06-28 07:55] LABS: Glucose Point of Care 91 (65-105)
[2020-06-28] MEDS: TICAGRELOR 90 MG TABLET PO ×2 (08:14→21:09)
[2020-06-28] MEDS: POTASSIUM CHLORIDE 20 MEQ TABLET 40 MEQ PO (08:14)
[2020-06-28] MEDS: ASPIRIN 81 MG ENTERIC TABLET PO (08:14)
[2020-06-28] MEDS: GABAPENTIN 400 MG CAPSULE 800 MG PO ×2 (08:14→16:36)
[2020-06-28 08:15] VITALS: PULSE 80
[2020-06-28] MEDS: METOPROLOL SUCCINATE EXT REL 25 MG TABCR PO ×2 (08:15→21:09)
[2020-06-28] MEDS: lisinopriL 20 MG TABLET PO (08:15)
[2020-06-28] MEDS: SERTRALINE HCL 50 MG TABLET 100 MG PO (08:15)
[2020-06-28] MEDS: FUROSEMIDE INJ 40 MG/4 ML VIAL IV PUSH ×2 (08:15→16:37)
[2020-06-28] MEDS: ISOSORBIDE MONONITRATE 30 MG TAB.ER.24H PO (08:15)
[2020-06-28] MEDS: metOLazone 5 MG TABLET PO (08:15)
--- NOTE | 2020-06-28 09:15 | PC.NURSE ---
Patient has current surgical dressing to left shoulder, dry/intact. I offered to speak with Dr. Camp in regards to changing this dressing since this current one has been on since his surgical procedure. Patient stating he would prefer us to not change dressing and that he is supposed to be following up with surgeon on Tuesday and would like his surgeon to address it then.
[2020-06-28 11:56] LABS: Glucose Point of Care 98 (65-105)
--- NOTE | 2020-06-28 13:06 | PM.IMPN ---
Progress Note: A&P Assessment and Plan (1) Cellulitis of scrotum: Code(s): N49.2 - Inflammatory disorders of scrotum Status: Acute Assessment and Plan: continue with Primaxin and vancomycin. Urology has seen the patient. He is too big to be able to wear the scrotal support at this time. I encouraged patient to keep his feet above his head. Blood and urine cultures are pending. 06/28/20 13:06 Patient is 64-year-old male morbidly obese with BMI of 60 past medical history of type 1 diabetes on insulin pump, congestive heart failure S/P left shoulder surgery about a week ago and Pt has history of scrotal cellulitis, presented to emergency department with a complaint of redness swelling and tenderness along his scrotum patient had a ultrasound it showed 1. Severe scrotal edema. 2. Small bilateral hydrocele and normal testicle, patient is diagnosed with cellulitis and being treated with vancomycin and imipenem, with extensive edema along his scrotum and pelvis started the patient on IV Lasix 40mg daily to help in diureses as well as restrict fluid intake to 1800 cc per day, seen by urologist agree with the current management, today Lasix 40 mg IV there is not significant increasing urine output or decrease in edema, on 06/27 we ahead increase Lasix 40 mg IV b.i.d. patient is also on metolazone, today patient states there is slight improvement in his swelling is making more urine than had been, he still complains of pain along his groin area, denies any fever or chill will continue present management for the 48 hour and further recommendation to follow (2) Congestive heart failure: Qualifiers: Heart failure type: unspecified Heart failure chronicity: chronic Qualified Code(s): I50.9 - Heart failure, unspecified Code(s): I50.9 - Heart failure, unspecified Status: Chronic Assessment and Plan: I did order an echo and a changes Lasix to IV. He is on isosorbide as well and lisinopril. He is also on metoprolol. he is also on Zaroxolyn. (3) Morbid obesity: Code(s): E66.01 - Morbid (severe) obesity due to excess calories Status: Acute Assessment and Plan: Patient's BMI is 60. He may need some dietary counseling. I saw that he had had some in the past. (4) Essential (primary) hypertension: Code(s): I10 - Essential (primary) hypertension Status: Acute Assessment and Plan: Continue with metoprolol. I changes Lasix to IV. He is also on lisinopril (5) PERLITA on CPAP: Code(s): G47.33 - Obstructive sleep apnea (adult) (pediatric); Z99.89 - Dependence on other enabling machines and devices Status: Acute Assessment and Plan: Continue with CPAP machine (6) Type 2 diabetes mellitus without complication, with long-term current use of insulin: Code(s): E11.9 - Type 2 diabetes mellitus without complications; Z79.4 - retirement (current) use of insulin Status: Acute Assessment and Plan: patient made an agreement with us that he would use his insulin pump we do have a down in the 200s now. He will be monitoring his blood sugars and he will bolus himself with his insulin pump. He has a continues basal rate. He also has the ability to bolus himself as well. (7) Hyperlipidemia: Code(s): E78.5 - Hyperlipidemia, unspecified Status: Chronic Assessment and Plan: Continue with atorvastatin (8) CAD (coronary artery disease): Code(s): I25.10 - Atherosclerotic heart disease of [place] coronary artery without angina pectoris Status: Chronic Assessment and Plan: patient is on Brilinta, aspirin and isosorbide. He is also on metoprolol. He has had a total of 4 stents. (9) Depression: Code(s): F32.9 - Major depressive disorder, single episode, unspecified Status: Chronic Assessment and Plan: continue with Zoloft. Subjective Date/time seen: 06/28/20 13:06 Patient is 64-
[2020-06-28 14:00] VITALS: BP 96/54; PULSE 83; RESP 20; TEMP 36.1; O2SAT 97
[2020-06-28 16:45] LABS: Glucose Point of Care 122 (65-105)
[2020-06-28] MEDS: ATORVASTATIN 40 MG TABLET 80 MG PO (17:01)
[2020-06-28 21:09] VITALS: PULSE 87
[2020-06-28 21:35] LABS: Glucose Point of Care 86 (65-105)
[2020-06-28 21:35] LABS: Glucose Point of Care 68 (65-105)
[2020-06-28 22:00] VITALS: BP 101/50; PULSE 87; RESP 18; TEMP 36.3; O2SAT 97
[2020-06-29] VITALS (7 sets, daily range): BP systolic 80–103; BP diastolic 53–62; PULSE 77–88; RESP 16–20; TEMP 36.2–36.4; O2SAT 96–100
[2020-06-29 06:02] LABS: Basophils Absolute Auto 0.1 K/mm3 (0.0-0.1); Basophils Percent Auto 0.5 % (0.2-1.2); Eosinophils Absolute Auto 0.3 K/mm3 (0-0.3); Eosinophils Percent Auto 1.7 % (0-4.4); Hematocrit 34.9 % (42.0-52.0); Hemoglobin 11.8 g/dL (14.0-18.0); Immature Granulocyte Absolute 0.13 K/mm3 (0.00-0.031); Immature Granulocyte Percent A 0.8 % (0-0.5); Lymphocytes Absolute Auto 5.72 K/mm3 (0.9-3.2); Lymphocytes Percent Auto 34.4 % (18.3-44.2); Mean Corpuscular HGB Conc 33.8 g/dl (32-36); Mean Corpuscular Hemoglobin 29.9 pg (26-34); Mean Corpuscular Volume 88.4 fl (80-100); Mean Platelet Volume 8.9 fl (7.4-10.4); Monocytes Absolute Auto 1.2 K/mm3 (0.1-0.6); Monocytes Percent Auto 7.4 % (2.6-8.5); Neutrophils Absolute Auto 9.2 K/mm3 (1.3-6.7); Neutrophils Percent Auto 55.2 % (45.5-73.1); Platelet Count Result 330 k/mm3 (150-375); Red Blood Count 3.95 M/mm3 (4.6-6.20); White Blood Count 16.6 K/mm3 (4.5-10.0)
[2020-06-29 06:22] LABS: Anion Gap 11 mmol/L (8-16); Blood Urea Nitrogen 36 mg/dL (9-20); Calcium 8.9 mg/dL (8.4-10.2); Carbon Dioxide 29 mmol/L (22-30); Chloride 88 mmol/L (98-107); Estimated CRCL calculation 79 ml/min; Estimated Glomerular Filt Rate 51; Glucose 112 mg/dL (75-110); Potassium 3.6 mmol/L (3.4-5.0); Sodium 128 mmol/L (137-145)
[2020-06-29] MEDS: POTASSIUM CHLORIDE 20 MEQ TABLET 40 MEQ PO (07:55)
[2020-06-29] MEDS: GABAPENTIN 400 MG CAPSULE 800 MG PO ×2 (07:55→16:14)
[2020-06-29] MEDS: ISOSORBIDE MONONITRATE 30 MG TAB.ER.24H PO (07:56)
[2020-06-29] MEDS: metOLazone 5 MG TABLET PO (07:56)
[2020-06-29] MEDS: ASPIRIN 81 MG ENTERIC TABLET PO (07:56)
[2020-06-29] MEDS: lisinopriL 20 MG TABLET PO (07:57)
[2020-06-29] MEDS: SERTRALINE HCL 50 MG TABLET 100 MG PO (07:57)
[2020-06-29] MEDS: TICAGRELOR 90 MG TABLET PO ×2 (07:57→20:50)
[2020-06-29] MEDS: METOPROLOL SUCCINATE EXT REL 25 MG TABCR PO ×2 (07:57→20:51)
[2020-06-29 08:01] LABS: Glucose Point of Care 103 (65-105)
[2020-06-29 11:59] LABS: Glucose Point of Care 201 (65-105)
--- NOTE | 2020-06-29 14:53 | PM.IMPN ---
Progress Note: A&P Assessment and Plan (1) Cellulitis of scrotum: Code(s): N49.2 - Inflammatory disorders of scrotum Status: Acute Assessment and Plan: continue with Primaxin and vancomycin. Urology has seen the patient. He is too big to be able to wear the scrotal support at this time. I encouraged patient to keep his feet above his head. Blood and urine cultures are pending. 06/29/20 14:53 Patient is 64-year-old male morbidly obese with BMI of 60 past medical history of type 1 diabetes on insulin pump, congestive heart failure S/P left shoulder surgery about a week ago and Pt has history of scrotal cellulitis, presented to emergency department with a complaint of redness swelling and tenderness along his scrotum patient had a ultrasound it showed 1. Severe scrotal edema. 2. Small bilateral hydrocele and normal testicle, patient is diagnosed with cellulitis and being treated with vancomycin and imipenem, with extensive edema along his scrotum and pelvis started the patient on IV Lasix 40mg daily to help in diureses as well as restrict fluid intake to 1800 cc per day, seen by urologist agree with the current management, on 06.26 Lasix 40 mg IV q daily there was no significant increasing urine output or decrease in edema, on 06/27 we increase Lasix 40 mg IV b.i.d. patient is also on metolazone, and there was increase in urine output and minimal decrease in edema and pain however today patient creatinine BUN is rising will go and stop IV Lasix, continue metolazone, will continue fluid restriction I will monitor patient overnight and reassess in the morning patient kidney function and edema and further recommendation to follow (2) Congestive heart failure: Qualifiers: Heart failure type: unspecified Heart failure chronicity: chronic Qualified Code(s): I50.9 - Heart failure, unspecified Code(s): I50.9 - Heart failure, unspecified Status: Chronic Assessment and Plan: I did order an echo and a changes Lasix to IV. He is on isosorbide as well and lisinopril. He is also on metoprolol. he is also on Zaroxolyn. (3) Morbid obesity: Code(s): E66.01 - Morbid (severe) obesity due to excess calories Status: Acute Assessment and Plan: Patient's BMI is 60. He may need some dietary counseling. I saw that he had had some in the past. (4) Essential (primary) hypertension: Code(s): I10 - Essential (primary) hypertension Status: Acute Assessment and Plan: Continue with metoprolol. I changes Lasix to IV. He is also on lisinopril (5) PERLITA on CPAP: Code(s): G47.33 - Obstructive sleep apnea (adult) (pediatric); Z99.89 - Dependence on other enabling machines and devices Status: Acute Assessment and Plan: Continue with CPAP machine (6) Type 2 diabetes mellitus without complication, with long-term current use of insulin: Code(s): E11.9 - Type 2 diabetes mellitus without complications; Z79.4 - correction (current) use of insulin Status: Acute Assessment and Plan: patient made an agreement with us that he would use his insulin pump we do have a down in the 200s now. He will be monitoring his blood sugars and he will bolus himself with his insulin pump. He has a continues basal rate. He also has the ability to bolus himself as well. (7) Hyperlipidemia: Code(s): E78.5 - Hyperlipidemia, unspecified Status: Chronic Assessment and Plan: Continue with atorvastatin (8) CAD (coronary artery disease): Code(s): I25.10 - Atherosclerotic heart disease of [place] coronary artery without angina pectoris Status: Chronic Assessment and Plan: patient is on Brilinta, aspirin and isosorbide. He is also on metoprolol. He has had a total of 4 stents. (9) Depression: Code(s): F32.9 - Major depressive disorder, single episode, unspecified Status: Chronic Assessment and Plan: co
[2020-06-29 16:39] LABS: Glucose Point of Care 114 (65-105)
[2020-06-29] MEDS: ATORVASTATIN 40 MG TABLET 80 MG PO (17:05)
[2020-06-30 01:21] LABS: Glucose Point of Care 76 (65-105)
[2020-06-30] MEDS: CALCIUM CARBONATE (TUMS) 500 MG (200 MG ELEMENTAL) PO (03:35)
[2020-06-30 03:45] VITALS: BP 90/52; PULSE 76; O2SAT 97
[2020-06-30 05:48] LABS: Basophils Absolute Auto 0.1 K/mm3 (0.0-0.1); Basophils Percent Auto 0.6 % (0.2-1.2); Eosinophils Absolute Auto 0.3 K/mm3 (0-0.3); Eosinophils Percent Auto 1.6 % (0-4.4); Hemoglobin 12.2 g/dL (14.0-18.0); Immature Granulocyte Absolute 0.17 K/mm3 (0.00-0.031); Immature Granulocyte Percent A 0.9 % (0-0.5); Lymphocytes Absolute Auto 6.36 K/mm3 (0.9-3.2); Mean Corpuscular Hemoglobin 29.8 pg (26-34); Mean Corpuscular Volume 90.5 fl (80-100); Mean Platelet Volume 9.1 fl (7.4-10.4); Monocytes Absolute Auto 1.4 K/mm3 (0.1-0.6); Monocytes Percent Auto 7.4 % (2.6-8.5); Neutrophils Absolute Auto 10.9 K/mm3 (1.3-6.7); Neutrophils Percent Auto 56.5 % (45.5-73.1); Platelet Count Result 358 k/mm3 (150-375); Red Blood Count 4.09 M/mm3 (4.6-6.20); Red Cell Distribution Width 13.2 % (11.5-14.5); White Blood Count 19.3 K/mm3 (4.5-10.0)
[2020-06-30 05:54] LABS: Anion Gap 12 mmol/L (8-16); Blood Urea Nitrogen 54 mg/dL (9-20); Calcium 8.9 mg/dL (8.4-10.2); Carbon Dioxide 29 mmol/L (22-30); Chloride 87 mmol/L (98-107); Estimated CRCL calculation 38 ml/min; Estimated Glomerular Filt Rate 21; Glucose 110 mg/dL (75-110); Potassium 4.8 mmol/L (3.4-5.0); Sodium 128 mmol/L (137-145)
[2020-06-30 06:00] VITALS: BP 90/53; PULSE 80; RESP 16; TEMP 36.4; O2SAT 97
[2020-06-30 07:55] LABS: Glucose Point of Care 119 (65-105)
[2020-06-30] MEDS: GABAPENTIN 400 MG CAPSULE 800 MG PO ×2 (08:49→17:00)
[2020-06-30] MEDS: SERTRALINE HCL 50 MG TABLET 100 MG PO (08:49)
[2020-06-30] MEDS: ASPIRIN 81 MG ENTERIC TABLET PO (08:49)
[2020-06-30] MEDS: TICAGRELOR 90 MG TABLET PO ×2 (08:49→20:56)
[2020-06-30 08:58] VITALS: BP 100/61; PULSE 78; O2SAT 99
--- NOTE | 2020-06-30 09:00 | PC.NURSE ---
Patient still has same surgical dressing to left shoulder from prior shoulder surgery. I offered to remove this and replace with a clean, sterile dressing. However, patient refusing and stating he wants to keep this dressing on until he sees his surgeon.
[2020-06-30 11:36] LABS: Glucose Point of Care 133 (65-105)
[2020-06-30 12:42] LABS: Glucose Point of Care 120 (65-105)
[2020-06-30 14:00] VITALS: BP 115/45; PULSE 86; RESP 22; TEMP 36.8; O2SAT 100
[2020-06-30 14:10] LABS: Vancomycin Trough 29.4 ug/mL (10.0-20.0)
[2020-06-30 16:46] LABS: Glucose Point of Care 191 (65-105)
[2020-06-30] MEDS: ATORVASTATIN 40 MG TABLET 80 MG PO (17:00)
--- NOTE | 2020-06-30 17:03 | PM.CNNEP ---
Assessment and Plan Assessment and plan (1) CELSO (acute kidney injury): Code(s): N17.9 - Acute kidney failure, unspecified Status: Acute (2) Scrotal swelling: Code(s): N50.89 - Other specified disorders of the male genital organs Status: Acute (3) Cellulitis of scrotum: Code(s): N49.2 - Inflammatory disorders of scrotum Status: Acute (4) Morbid obesity: Code(s): E66.01 - Morbid (severe) obesity due to excess calories Status: Acute Assessment and Plan: . (5) Diabetes: Code(s): E11.9 - Type 2 diabetes mellitus without complications Status: Chronic (6) Hypertension: Code(s): I10 - Essential (primary) hypertension Status: Acute Assessment and Plan: . Additional Plan Hong has suffered an acute insult on his kidneys as evidence by the trend of his blood test in the last 24-48 hours. The exact etiology of the acute insult is not entirely clear at this time. There are several possibilities including over diuresis on the assumption that perhaps maybe he is intravascularly volume depleted despite outward signs of volume overload that was worsened by the aggressive IV diuretics that he was instituted on. He was on IV Lasix which was being titrated as he was not having any significant urine output and his edema/swelling did not seem to be changing. Given the rise in his creatinine this has been since discontinued. Another possibility would be perhaps interstitial nephritis (acute versus chronic) given the antibiotics as he been on for last 2-3 weeks including with the what he has been receiving here during this hospitalization. I suppose there could be some other pathology going on with regard to his kidney function with regard to some type of intrinsic, infiltrative, or inflammatory disorder however as already mentioned, his kidney function was well within normal limits prior to this hospitalization/admission. Which would argue less likely for these issues. For further evaluation, I will check urine electrolytes, urine eosinophils, and continue to hold his IV Lasix for now and follow the trend of his repeat labs to see if his kidney function improves with just these conservative medical K[place] adjustments. If his kidney function improved with holding IV diuretics than the assumption would be that perhaps over diuresis is indeed to blame although we still runs the issue/ problem what we do for his swelling edema in the long-term if he is that sensitive to IV diuretics. I will continue follow the patient with you while remains hospitalized and make further recommendations during his hospital course. Thank you for allowing me to participate in care this patient. History of Present Illness Reason for Consult Consult date: 06/30/20 Reason for consult: acute renal failure Chief Complaint Chief complaint: Scrotal cellulitis History of Present Illness Narrative: The patient is a 64 year old male with a past medical history as outlined below who presented to [facility] ER with scrotal swelling. The patient has a history of scrotal infections in the past as well as issues and problems with chronic swelling / edema although more so in his lower extremities in general. He apparently saw his urologist about 2 weeks ago for this chronic issue of scrotal swelling and was prescribed a scrotal support and ciprofloxacin for presumed urinary tract infection since he had dysuria. He also recently had shoulder surgery at the [facility] which was apparently uneventful. In any case, as his scrotal swelling seem to be progressively worsening and he had a concern that another infection was brewing , he presented to the ER for further evaluation. Workup and evaluation emergency room did demonstrate significant lower extremity edema as well as severe scrotal edema as well. Ultrasound of the scrotal area did not demonstrate any occult abscess or acute infe
--- NOTE | 2020-06-30 17:48 | PM.IMPN ---
Progress Note: A&P Assessment and Plan (1) Cellulitis of scrotum: Code(s): N49.2 - Inflammatory disorders of scrotum Status: Acute Assessment and Plan: continue with Primaxin and vancomycin. Urology has seen the patient. He is too big to be able to wear the scrotal support at this time. I encouraged patient to keep his feet above his head. Blood and urine cultures are pending. 06/30/20 17:48 Patient is 64-year-old male morbidly obese with BMI of 60 past medical history of type 1 diabetes on insulin pump, congestive heart failure S/P left shoulder surgery about a week ago and Pt has history of scrotal cellulitis, presented to emergency department with a complaint of redness swelling and tenderness along his scrotum patient had a ultrasound it showed 1. Severe scrotal edema. 2. Small bilateral hydrocele and normal testicle, patient is diagnosed with cellulitis and being treated with vancomycin and imipenem, with extensive edema along his scrotum and pelvis started the patient on IV Lasix 40mg daily to help in diureses as well as restrict fluid intake to 1800 cc per day, seen by urologist agree with the current management, on 06.26 Lasix 40 mg IV q daily there was no significant increasing urine output or decrease in edema, on 06/27 we increase Lasix 40 mg IV b.i.d. patient is also on metolazone, and there was increase in urine output and minimal decrease in edema and pain however today patient creatinine BUN is rising will go and stop IV Lasix, continue metolazone, we monitor patient overnight patient BUN and creatinine keep rising even though patient is off IV Lasix for 2 days, to further evaluate patient had a kidney ultrasound which is essentially normal, will consult canal equipment mechanic further opinion and further recommendation to follow meanwhile we are holding diuretics and blood pressure medication, (2) Congestive heart failure: Qualifiers: Heart failure type: unspecified Heart failure chronicity: chronic Qualified Code(s): I50.9 - Heart failure, unspecified Code(s): I50.9 - Heart failure, unspecified Status: Chronic Assessment and Plan: I did order an echo and a changes Lasix to IV. He is on isosorbide as well and lisinopril. He is also on metoprolol. he is also on Zaroxolyn. (3) Morbid obesity: Code(s): E66.01 - Morbid (severe) obesity due to excess calories Status: Acute Assessment and Plan: Patient's BMI is 60. He may need some dietary counseling. I saw that he had had some in the past. (4) Essential (primary) hypertension: Code(s): I10 - Essential (primary) hypertension Status: Acute Assessment and Plan: Continue with metoprolol. I changes Lasix to IV. He is also on lisinopril (5) PERLITA on CPAP: Code(s): G47.33 - Obstructive sleep apnea (adult) (pediatric); Z99.89 - Dependence on other enabling machines and devices Status: Acute Assessment and Plan: Continue with CPAP machine (6) Type 2 diabetes mellitus without complication, with long-term current use of insulin: Code(s): E11.9 - Type 2 diabetes mellitus without complications; Z79.4 - terminal clerk (current) use of insulin Status: Acute Assessment and Plan: patient made an agreement with us that he would use his insulin pump we do have a down in the 200s now. He will be monitoring his blood sugars and he will bolus himself with his insulin pump. He has a continues basal rate. He also has the ability to bolus himself as well. (7) Hyperlipidemia: Code(s): E78.5 - Hyperlipidemia, unspecified Status: Chronic Assessment and Plan: Continue with atorvastatin (8) CAD (coronary artery disease): Code(s): I25.10 - Atherosclerotic heart disease of [place] coronary artery without angina pectoris Status: Chronic Assessment and Plan: patient is on Brilinta, aspirin and isosorbide. He is also on metoprolol. He has h
[2020-06-30 20:21] LABS: Glucose Point of Care 219 (65-105)
[2020-06-30 21:07] VITALS: PULSE 92
[2020-06-30] MEDS: METOPROLOL SUCCINATE EXT REL 25 MG TABCR PO (21:07)
[2020-06-30 22:00] VITALS: BP 122/60; PULSE 80; RESP 20; TEMP 36.2; O2SAT 97
[2020-07-01 05:36] LABS: Basophils Absolute Auto 0.1 K/mm3 (0.0-0.1); Basophils Percent Auto 0.6 % (0.2-1.2); Eosinophils Absolute Auto 0.3 K/mm3 (0-0.3); Eosinophils Percent Auto 1.9 % (0-4.4); Hematocrit 35.2 % (42.0-52.0); Hemoglobin 11.8 g/dL (14.0-18.0); Immature Granulocyte Absolute 0.13 K/mm3 (0.00-0.031); Immature Granulocyte Percent A 0.8 % (0-0.5); Lymphocytes Absolute Auto 5.46 K/mm3 (0.9-3.2); Lymphocytes Percent Auto 35.4 % (18.3-44.2); Mean Corpuscular HGB Conc 33.5 g/dl (32-36); Mean Corpuscular Hemoglobin 29.4 pg (26-34); Mean Corpuscular Volume 87.6 fl (80-100); Mean Platelet Volume 8.7 fl (7.4-10.4); Monocytes Absolute Auto 1.2 K/mm3 (0.1-0.6); Monocytes Percent Auto 7.8 % (2.6-8.5); Neutrophils Absolute Auto 8.3 K/mm3 (1.3-6.7); Neutrophils Percent Auto 53.5 % (45.5-73.1); Platelet Count Result 310 k/mm3 (150-375); Red Blood Count 4.02 M/mm3 (4.6-6.20); Red Cell Distribution Width 12.8 % (11.5-14.5); White Blood Count 15.4 K/mm3 (4.5-10.0)
[2020-07-01 05:55] VITALS: BP 102/54; PULSE 79; RESP 20; TEMP 36.1; O2SAT 98
[2020-07-01 05:57] LABS: Anion Gap 11 mmol/L (8-16); Blood Urea Nitrogen 62 mg/dL (9-20); Calcium 8.7 mg/dL (8.4-10.2); Carbon Dioxide 28 mmol/L (22-30); Chloride 90 mmol/L (98-107); Estimated CRCL calculation 56 ml/min; Estimated Glomerular Filt Rate 34; Glucose 91 mg/dL (75-110); Potassium 4.2 mmol/L (3.4-5.0); Sodium 129 mmol/L (137-145)
[2020-07-01 08:03] LABS: Glucose Point of Care 75 (65-105)
[2020-07-01] MEDS: SERTRALINE HCL 50 MG TABLET 100 MG PO (08:12)
[2020-07-01] MEDS: ISOSORBIDE MONONITRATE 30 MG TAB.ER.24H PO (08:12)
[2020-07-01] MEDS: GABAPENTIN 400 MG CAPSULE 800 MG PO ×2 (08:12→17:13)
[2020-07-01 08:13] VITALS: PULSE 79
[2020-07-01] MEDS: metOLazone 5 MG TABLET PO (08:13)
[2020-07-01] MEDS: METOPROLOL SUCCINATE EXT REL 25 MG TABCR PO ×2 (08:13→21:04)
[2020-07-01] MEDS: TICAGRELOR 90 MG TABLET PO ×2 (08:13→21:04)
[2020-07-01] MEDS: ASPIRIN 81 MG ENTERIC TABLET PO (08:13)
--- NOTE | 2020-07-01 09:14 | PC.NURSE ---
Patient spoke with his orthopedic surgeon about recent shoulder surgery today. states the patient does not need to change the initial dressing to left shoulder for 3 weeks post op. Dressing change due 07/09/20.
--- NOTE | 2020-07-01 09:39 | P.PNNP_ITS ---
Progress Note: A&P Assessment and Plan (1) CELSO (acute kidney injury): Code(s): N17.9 - Acute kidney failure, unspecified Status: Acute Assessment and Plan: * etiology not clear - overdiuresis - relative hypotension - infection(?) - antibiotics (acute vs chronic interstitial nephritis?) - something else? * kidney function better today * only real intervention to date was holding IV lasix and lisinopril * renal ultrasound normal * urine studies pending * follow trend of repeat labs and UOP (2) Scrotal swelling: Code(s): N50.89 - Other specified disorders of the male genital organs Status: Acute Assessment and Plan: * more edema than infection per Urology * scrotal support * will eventually have to resume loop diuretics (still on metolazone) (3) Cellulitis of scrotum: Code(s): N49.2 - Inflammatory disorders of scrotum Status: Acute Assessment and Plan: * less likely per Urology * de-escalte antibiotics? (4) Hypertension: Code(s): I10 - Essential (primary) hypertension Status: Acute Assessment and Plan: * BP has been running on the lower side recently - lower BP contributing to #1(?) * BP medication with parameters ordered * follow trend of hemodynamics (5) Diabetes: Code(s): E11.9 - Type 2 diabetes mellitus without complications Status: Chronic Assessment and Plan: * follow accuchecks * on SSI Will continue to follow. Subjective Date/time seen: 07/01/20 09:39 No apparent distress noted at this time; no adverse events overnight or earlier this AM; feels okay at the time of my visit; although not documented, he states his making reasonable urine output. Exam Narrative: Exam Narrative: General: Large male in NAD Heart: normal S1 and S2; no rub Lungs: clear to auscultation Abdomen: soft, nontender, nondistended, positive bowel sounds Extremities: no cyanosis or clubbing; 3+ edema Skin: chronic edematous changes noted Objective Data Vital Signs Vital Signs: Vital Signs Temp Pulse Resp BP Pulse Ox 07/01/20 08:13 79 07/01/20 05:55 36.1 C L 79 20 102/54 L 98 06/30/20 22:00 36.2 C L 80 20 122/60 97 06/30/20 21:07 92 06/30/20 14:00 36.8 C 86 22 H 115/45 L 100 Intake/Output Intake/Output: Intake & Output 06/28/20 06/29/20 06/30/20 07/01/20 23:59 23:59 23:59 23:59 Intake Total 2610 2700 2200 580 Output Total 1152 Balance 1458 2700 2200 580 Meds/Results Medications: Active Medications Generic Name Dose Route Start Last Admin Trade Name Freq PRN Reason Stop Dose Admin Hydrocodone Bitart/Acetaminophen 1 tab 06/30/20 20:23 07/01/20 08:11 [place] 10-325 Mg PO 1 tab Q4H PRN Administration Pain Rated 7-10 Aspirin 81 mg 06/26/20 09:00 07/01/20 08:13 Aspirin Ec PO 81 mg DAILY ADALBERTO Administration Atorvastatin Calcium 80 mg 06/26/20 18:00 06/30/20 17:00 Lipitor PO 80 mg QPM ADALBERTO Administration Calcium Carbonate 200 mg 06/25/20 20:47 06/30/20 03:35 Tums PO 200 mg Q6H PRN Administration Indigestion Gabapentin 800 mg 08
--- NOTE | 2020-07-01 09:39 | PM.PNNEP ---
Progress Note: A&P Assessment and Plan (1) CELSO (acute kidney injury): Code(s): N17.9 - Acute kidney failure, unspecified Status: Acute Assessment and Plan: etiology not clear - overdiuresis - relative hypotension - infection(?) - antibiotics (acute vs chronic interstitial nephritis?) - something else? kidney function better today only real intervention to date was holding IV lasix and lisinopril renal ultrasound normal urine studies pending follow trend of repeat labs and UOP (2) Scrotal swelling: Code(s): N50.89 - Other specified disorders of the male genital organs Status: Acute Assessment and Plan: more edema than infection per Urology scrotal support will eventually have to resume loop diuretics (still on metolazone) (3) Cellulitis of scrotum: Code(s): N49.2 - Inflammatory disorders of scrotum Status: Acute Assessment and Plan: less likely per Urology de-escalte antibiotics? (4) Hypertension: Code(s): I10 - Essential (primary) hypertension Status: Acute Assessment and Plan: BP has been running on the lower side recently - lower BP contributing to #1(?) BP medication with parameters ordered follow trend of hemodynamics (5) Diabetes: Code(s): E11.9 - Type 2 diabetes mellitus without complications Status: Chronic Assessment and Plan: follow accuchecks on SSI Will continue to follow. Subjective Date/time seen: 07/01/20 09:39 No apparent distress noted at this time; no adverse events overnight or earlier this AM; feels okay at the time of my visit; although not documented, he states his making reasonable urine output. Exam Narrative: Exam Narrative: General: Large male in NAD Heart: normal S1 and S2; no rub Lungs: clear to auscultation Abdomen: soft, nontender, nondistended, positive bowel sounds Extremities: no cyanosis or clubbing; 3+ edema Skin: chronic edematous changes noted Objective Data Vital Signs Vital Signs: Vital Signs Temp Pulse Resp BP Pulse Ox 07/01/20 08:13 79 07/01/20 05:55 36.1 C L 79 20 102/54 L 98 06/30/20 22:00 36.2 C L 80 20 122/60 97 06/30/20 21:07 92 06/30/20 14:00 36.8 C 86 22 H 115/45 L 100 Intake/Output Intake/Output: Intake & Output 06/28/20 06/29/20 06/30/20 07/01/20 23:59 23:59 23:59 23:59 Intake Total 2610 2700 2200 580 Output Total 1152 Balance 1458 2700 2200 580 Meds/Results Medications: Active Medications Generic Name Dose Route Start Last Admin Trade Name Freq PRN Reason Stop Dose Admin Hydrocodone Bitart/Acetaminophen 1 tab 06/30/20 20:23 07/01/20 08:11 [place] 10-325 Mg PO 1 tab Q4H PRN Administration Pain Rated 7-10 Aspirin 81 mg 06/26/20 09:00 07/01/20 08:13 Aspirin Ec PO 81 mg DAILY ADALBERTO Administration Atorvastatin Calcium 80 mg 06/26/20 18:00 06/30/20 17:00 Lipitor PO 80 mg QPM ADALBERTO Administration Calcium Carbonate 200 mg 06/25/20 20:47 06/30/20 03:35 Tums PO 200 mg Q6H PRN Administration Indigestion Gabapentin 800 mg 06/26/20 09:00 07/01/20 08:12 Neurontin PO 800 mg BID ADALBERTO Administration Imipenem/Cilastatin Sodium 500 mg in 100 mls @ 300 mls/hr 06/25/20 18:00 07/01/20 06:18 Primaxin 500 Mg/D5w 100 Ml IVPB 300 mls/hr Q6HR ADALBERTO Administration Vancomycin HCl 2,000 mg in 500 mls @ 250 mls/hr 06/26/20 02:00 06/29/20 14:30 Vancomycin 2,000 Mg/D5w 500 Ml IVPB Not Given Q12H [facility] Insulin Human Regular 230 - 260 each 06/26/20 08:00 06/30/20 18:10 Home Medication Insulin SUB-Q Not Given ACINSULIN [facility] Isosorbide Mononitrate 30 mg 06/26/20 09:00 07/01/20 08:12 Imdur PO 30 mg DAILY ADALBERTO Administration Lisinopril 20 mg 06/26/20 09:00 06/30/20 09:33 Prinivil PO Not Given DAILY [facility] Metolazone 5 mg 06/26/20 09:00 07/01/20 0
[2020-07-01 11:58] LABS: Glucose Point of Care 172 (65-105)
--- NOTE | 2020-07-01 13:59 | PM.IMPN ---
Progress Note: A&P Assessment and Plan (1) Cellulitis of scrotum: Code(s): N49.2 - Inflammatory disorders of scrotum Status: Acute Assessment and Plan: continue with Primaxin and vancomycin. Urology has seen the patient. He is too big to be able to wear the scrotal support at this time. I encouraged patient to keep his feet above his head. Blood and urine negative to date. Patient creatinine BUN is rising will go and stop IV Lasix, continue metolazone, we monitor patient overnight patient BUN and creatinine keep rising even though patient is off IV Lasix for 2 days, to further evaluate patient had a kidney ultrasound which is essentially normal, will consult pigment processor further opinion and further recommendation to follow meanwhile we are holding diuretics and blood pressure medication. As per previous notes. Pt encouraged to walk to help reduce swelling alot of central swelling. Patient had left shoulder surgery approximately 1 week ago at [facility] which may have contributed to his edematous state post op. (2) Congestive heart failure: Qualifiers: Heart failure type: unspecified Heart failure chronicity: chronic Qualified Code(s): I50.9 - Heart failure, unspecified Code(s): I50.9 - Heart failure, unspecified Status: Chronic Assessment and Plan: I did order an echo, IV lasix and lisinopril on hold due to Creat elevation Pt is to continue on metoprolol and on Zaroxolyn. (3) Morbid obesity: Code(s): E66.01 - Morbid (severe) obesity due to excess calories Status: Acute Assessment and Plan: Patient's BMI is 60. (4) Essential (primary) hypertension: Code(s): I10 - Essential (primary) hypertension Status: Acute Assessment and Plan: Continue with metoprolol. (5) PERLITA on CPAP: Code(s): G47.33 - Obstructive sleep apnea (adult) (pediatric); Z99.89 - Dependence on other enabling machines and devices Status: Acute Assessment and Plan: Continue with CPAP machine (6) Type 2 diabetes mellitus without complication, with long-term current use of insulin: Code(s): E11.9 - Type 2 diabetes mellitus without complications; Z79.4 - intermodal dispatcher (current) use of insulin Status: Acute Assessment and Plan: Patient made an agreement with us that he would use his insulin pump (7) Hyperlipidemia: Code(s): E78.5 - Hyperlipidemia, unspecified Status: Chronic Assessment and Plan: Continue with atorvastatin (8) CAD (coronary artery disease): Code(s): I25.10 - Atherosclerotic heart disease of [place] coronary artery without angina pectoris Status: Chronic Assessment and Plan: patient is on Brilinta, aspirin and isosorbide. He is also on metoprolol. He has had a total of 4 stents. (9) Depression: Code(s): F32.9 - Major depressive disorder, single episode, unspecified Status: Chronic Assessment and Plan: continue with Zoloft. Subjective Date/time seen: 07/01/20 13:59 Interval history: 64-year-old male morbidly obese with BMI of 60 past medical history of type 1 diabetes on insulin pump, congestive heart failure S/P left shoulder surgery about a week ago and Pt has history of scrotal cellulitis, presented to emergency department with a complaint of redness swelling and tenderness along his scrotum patient had a ultrasound it showed 1. Severe scrotal edema. 2. Small bilateral hydrocele and normal testicle, patient is diagnosed with cellulitis and being treated with vancomycin and imipenem, with extensive edema along his scrotum and pelvis started the patient on IV Lasix 40mg daily to help in diureses as well as restrict fluid intake to 1800 cc per day, seen by urologist agree with the current management, on 06.26 Lasix 40 mg IV q daily there was no significant increasing urine output or decrease in edema, on 06/27 we increase Lasix 40 mg IV b.i.d. patient i
[2020-07-01 14:00] VITALS: BP 146/54; PULSE 86; RESP 16; TEMP 36.3; O2SAT 99
[2020-07-01 14:29] LABS: Vancomycin Trough 20.1 ug/mL (10.0-20.0)
[2020-07-01 14:32] LABS: Sodium Urine Random 27 meq/L
[2020-07-01 14:36] LABS: Creatinine Urine 114.5 mg/dL; Total Protein Urine Random 21 mg/dL
[2020-07-01 16:51] LABS: Glucose Point of Care 273 (65-105)
[2020-07-01] MEDS: ATORVASTATIN 40 MG TABLET 80 MG PO (17:13)
[2020-07-01 20:00] VITALS: BP 100/43; PULSE 84; RESP 22; TEMP 36.6; O2SAT 98
[2020-07-01 21:04] VITALS: PULSE 86
[2020-07-01 21:26] LABS: Glucose Point of Care 282 (65-105)
[2020-07-02 04:00] VITALS: BP 124/54; PULSE 80; RESP 18; TEMP 35.9; O2SAT 95
[2020-07-02 07:48] LABS: Glucose Point of Care 226 (65-105)
[2020-07-02 08:29] VITALS: PULSE 80
[2020-07-02] MEDS: GABAPENTIN 400 MG CAPSULE 800 MG PO ×2 (08:29→17:14)
[2020-07-02] MEDS: ISOSORBIDE MONONITRATE 30 MG TAB.ER.24H PO (08:29)
[2020-07-02] MEDS: METOPROLOL SUCCINATE EXT REL 25 MG TABCR PO ×2 (08:29→21:02)
[2020-07-02] MEDS: TICAGRELOR 90 MG TABLET PO ×2 (08:29→21:03)
[2020-07-02] MEDS: SERTRALINE HCL 50 MG TABLET 100 MG PO (08:30)
[2020-07-02] MEDS: ASPIRIN 81 MG ENTERIC TABLET PO (08:30)
[2020-07-02] MEDS: metOLazone 5 MG TABLET PO (08:31)
[2020-07-02 09:04] LABS: Anion Gap 10 mmol/L (8-16); Blood Urea Nitrogen 55 mg/dL (9-20); Calcium 9.3 mg/dL (8.4-10.2); Carbon Dioxide 31 mmol/L (22-30); Chloride 91 mmol/L (98-107); Estimated CRCL calculation 92 ml/min; Estimated Glomerular Filt Rate > 60; Glucose 250 mg/dL (75-110); Potassium 4.7 mmol/L (3.4-5.0); Sodium 132 mmol/L (137-145)
[2020-07-02 11:37] LABS: Glucose Point of Care 191 (65-105)
--- NOTE | 2020-07-02 12:37 | PM.PNNEP ---
Progress Note: A&P Assessment and Plan (1) CELSO (acute kidney injury): Code(s): N17.9 - Acute kidney failure, unspecified Status: Acute Assessment and Plan: etiology not clear - overdiuresis - relative hypotension - infection(?) - antibiotics (acute vs chronic interstitial nephritis?) - something else? kidney function better today only real intervention to date was holding IV lasix and lisinopril renal ultrasound normal urine studies suggestive of pre-renal azotemia despite outward signs of volume overload - will start trial of IV bumex - this may be a situation where we have to accept a higher creatinine to achieve some degree of euvolemia... follow trend of repeat labs and UOP (2) Scrotal swelling: Code(s): N50.89 - Other specified disorders of the male genital organs Status: Acute Assessment and Plan: more edema than infection per Urology scrotal support start IV bumex (still on metolazone) (3) Cellulitis of scrotum: Code(s): N49.2 - Inflammatory disorders of scrotum Status: Acute Assessment and Plan: less likely per Urology de-escalte antibiotics? (4) Hypertension: Code(s): I10 - Essential (primary) hypertension Status: Acute Assessment and Plan: BP has been running on the lower side recently - lower BP contributing to #1(?) BP medication with parameters ordered follow trend of hemodynamics (5) Diabetes: Code(s): E11.9 - Type 2 diabetes mellitus without complications Status: Chronic Assessment and Plan: follow accuchecks on SSI Will continue to follow. Subjective Date/time seen: 07/02/20 12:37 Feels about the same - no worse, no better; making urine (not recorded); renal function improving; no apparent distress voiced at this time. Exam Narrative: Exam Narrative: General: Large male in NAD Heart: normal S1 and S2; no rub Lungs: clear to auscultation Abdomen: soft, nontender, nondistended, positive bowel sounds Extremities: no cyanosis or clubbing; 3+ edema Skin: chronic edematous changes noted Objective Data Vital Signs Vital Signs: Vital Signs Temp Pulse Resp BP Pulse Ox 07/02/20 08:29 80 07/02/20 04:00 35.9 C L 80 18 124/54 L 95 07/01/20 21:04 86 07/01/20 20:00 36.6 C 84 22 H 100/43 L 98 07/01/20 14:00 36.3 C L 86 16 146/54 H 99 Intake/Output Intake/Output: Intake & Output 06/29/20 06/30/20 07/01/20 07/02/20 23:59 23:59 23:59 23:59 Intake Total 2700 2200 1660 900 Balance 2700 2200 1660 900 Meds/Results Medications: Active Medications Generic Name Dose Route Start Last Admin Trade Name Freq PRN Reason Stop Dose Admin Hydrocodone Bitart/Acetaminophen 1 tab 06/30/20 20:23 07/02/20 08:32 [place] 10-325 Mg PO 1 tab Q4H PRN Administration Pain Rated 7-10 Aspirin 81 mg 06/26/20 09:00 07/02/20 08:30 Aspirin Ec PO 81 mg DAILY ADALBERTO Administration Atorvastatin Calcium 80 mg 06/26/20 18:00 07/01/20 17:13 Lipitor PO 80 mg QPM ADALBERTO Administration Bumetanide 1 mg 07/02/20 12:40 Bumex Inj IV PUSH QAM ADALBERTO Calcium Carbonate 200 mg 06/25/20 20:47 06/30/20 03:35 Tums PO 200 mg Q6H PRN Administration Indigestion Gabapentin 800 mg 06/26/20 09:00 07/02/20 08:29 Neurontin PO 800 mg BID ADALBERTO Administration Imipenem/Cilastatin Sodium 500 mg in 100 mls @ 300 mls/hr 06/25/20 18:00 07/02/20 11:43 Primaxin 500 Mg/D5w 100 Ml IVPB Infused Q6HR ADALBERTO Infusion Vancomycin HCl 2,000 mg in 500 mls @ 250 mls/hr 07/01/20 15:11 Vancomycin 2,000 Mg/D5w 500 Ml IVPB PRN PRN PER LEVELS Insulin Human Regular 230 - 260 each 06/26/20 08:00 07/02/20 11:30 Home Medication Insulin SUB-Q Not Given ACINSULIN ADALBERTO Isosorbide Mononitrate 30 mg 06/26/20 09:00 07/02/20 08:29 Imdur PO 30 mg
[2020-07-02] MEDS: BUMETANIDE INJ 1 MG/4 ML VIAL IV PUSH (13:18)
[2020-07-02 13:26] VITALS: BP 128/67; PULSE 85; RESP 20; TEMP 35.8; O2SAT 99
--- NOTE | 2020-07-02 13:32 | PC.NURSE ---
Insulin found at head of bed in [employer] bag. Locked patients home insulin in locker.
--- NOTE | 2020-07-02 14:19 | PC.NURSE ---
Patient has been instructed and educated on the use of urinal for accurate output measurements. However, he has been refusing to use the urinal. He refuses to allow staff to hold urinal while he pees in order to accurately measure output. Will continue to encourage.
--- NOTE | 2020-07-02 14:32 | PHAR ---
Home medication Humalog Insulin seen in pharmacy and returned to [address] [place] [address]
[2020-07-02 16:18] LABS: Glucose Point of Care 176 (65-105)
--- NOTE | 2020-07-02 17:09 | PM.IMPN ---
Progress Note: A&P Assessment and Plan (1) Cellulitis of scrotum: Code(s): N49.2 - Inflammatory disorders of scrotum Status: Acute Assessment and Plan: continue with Primaxin and vancomycin. Urology has seen the patient. He is too big to be able to wear the scrotal support at this time. I encouraged patient to keep his feet above his head. Blood and urine negative to date. Patient creatinine BUN is rising will go and stop IV Lasix, continue metolazone, we monitor patient overnight patient BUN and creatinine keep rising even though patient is off IV Lasix for 2 days, to further evaluate patient had a kidney ultrasound which is essentially normal, will consult search engine optimization analyst further opinion and further recommendation to follow meanwhile we are holding diuretics and blood pressure medication. As per previous notes. Pt encouraged to walk to help reduce swelling alot of central swelling. Patient had left shoulder surgery approximately 1 week ago at [facility] which may have contributed to his edematous state post op. Pt started on bumex iv (2) Congestive heart failure: Qualifiers: Heart failure type: unspecified Heart failure chronicity: chronic Qualified Code(s): I50.9 - Heart failure, unspecified Code(s): I50.9 - Heart failure, unspecified Status: Chronic Assessment and Plan: awaiting echo EF 65%, IV lasix and lisinopril on hold due to Creat elevation Pt is to continue on metoprolol and on Zaroxolyn. (3) Morbid obesity: Code(s): E66.01 - Morbid (severe) obesity due to excess calories Status: Acute Assessment and Plan: Patient's BMI is 60. (4) Essential (primary) hypertension: Code(s): I10 - Essential (primary) hypertension Status: Acute Assessment and Plan: Continue with metoprolol. (5) PERLITA on CPAP: Code(s): G47.33 - Obstructive sleep apnea (adult) (pediatric); Z99.89 - Dependence on other enabling machines and devices Status: Acute Assessment and Plan: Continue with CPAP machine (6) Type 2 diabetes mellitus without complication, with long-term current use of insulin: Code(s): E11.9 - Type 2 diabetes mellitus without complications; Z79.4 - termite treater (current) use of insulin Status: Acute Assessment and Plan: Patient made an agreement with us that he would use his insulin pump (7) Hyperlipidemia: Code(s): E78.5 - Hyperlipidemia, unspecified Status: Chronic Assessment and Plan: Continue with atorvastatin (8) CAD (coronary artery disease): Code(s): I25.10 - Atherosclerotic heart disease of [place] coronary artery without angina pectoris Status: Chronic Assessment and Plan: patient is on Brilinta, aspirin and isosorbide. He is also on metoprolol. He has had a total of 4 stents. (9) Depression: Code(s): F32.9 - Major depressive disorder, single episode, unspecified Status: Chronic Assessment and Plan: continue with Zoloft. Additional Plan Patient had left shoulder surgery approximately 1 week ago at [facility] the area looks well approximated without any signs and symptoms of infection. Subjective Date/time seen: 07/02/20 17:09 Interval history: 64-year-old male morbidly obese with BMI of 60 past medical history of type 1 diabetes on insulin pump, congestive heart failure S/P left shoulder surgery about a week ago and Pt has history of scrotal cellulitis, presented to emergency department with a complaint of redness swelling and tenderness along his scrotum patient had a ultrasound it showed 1. Severe scrotal edema. 2. Small bilateral hydrocele and normal testicle, patient is diagnosed with cellulitis and being treated with vancomycin and imipenem, with extensive edema along his scrotum and pelvis started the patient on IV Lasix 40mg daily to help in diureses as well as restrict fluid intake to 1800 cc per day, seen by urologist
[2020-07-02] MEDS: ATORVASTATIN 40 MG TABLET 80 MG PO (17:14)
[2020-07-02 20:00] VITALS: BP 121/57; PULSE 85; RESP 22; TEMP 36.1; O2SAT 97
[2020-07-02 20:55] LABS: Vancomycin Trough 17.3 ug/mL (10.0-20.0)
[2020-07-02 21:02] VITALS: PULSE 86
[2020-07-02 21:03] LABS: Glucose Point of Care 197 (65-105)
[2020-07-03 04:00] VITALS: BP 133/95; PULSE 70; RESP 20; TEMP 35.9; O2SAT 98
[2020-07-03 06:11] LABS: Albumin Level 4.2 g/dL (3.5-5.1); Anion Gap 8 mmol/L (8-16); Blood Urea Nitrogen 45 mg/dL (9-20); Calcium 9.3 mg/dL (8.4-10.2); Carbon Dioxide 32 mmol/L (22-30); Chloride 94 mmol/L (98-107); Estimated CRCL calculation 120 ml/min; Estimated Glomerular Filt Rate > 60; Glucose 121 mg/dL (75-110); Phosphorus 4.5 mg/dL (2.5-4.5); Sodium 134 mmol/L (137-145)
[2020-07-03 07:57] LABS: Glucose Point of Care 94 (65-105)
[2020-07-03 08:34] VITALS: PULSE 70
[2020-07-03] MEDS: METOPROLOL SUCCINATE EXT REL 25 MG TABCR PO ×2 (08:34→20:21)
[2020-07-03] MEDS: TICAGRELOR 90 MG TABLET PO ×2 (08:34→20:21)
[2020-07-03] MEDS: SERTRALINE HCL 50 MG TABLET 100 MG PO (08:34)
[2020-07-03] MEDS: metOLazone 5 MG TABLET PO (08:34)
[2020-07-03] MEDS: ASPIRIN 81 MG ENTERIC TABLET PO (08:34)
[2020-07-03] MEDS: GABAPENTIN 400 MG CAPSULE 800 MG PO ×2 (08:34→17:23)
[2020-07-03] MEDS: BUMETANIDE INJ 1 MG/4 ML VIAL IV PUSH ×2 (08:35→17:23)
[2020-07-03] MEDS: ISOSORBIDE MONONITRATE 30 MG TAB.ER.24H PO (08:35)
[2020-07-03 09:04] LABS: Anion Gap 8 mmol/L (8-16); Blood Urea Nitrogen 44 mg/dL (9-20); Calcium 9.1 mg/dL (8.4-10.2); Carbon Dioxide 34 mmol/L (22-30); Chloride 94 mmol/L (98-107); Estimated CRCL calculation 120 ml/min; Estimated Glomerular Filt Rate > 60; Glucose 129 mg/dL (75-110); Sodium 136 mmol/L (137-145)
--- NOTE | 2020-07-03 09:33 | PCPTNOTE ---
Attempted therapy session. Pt declined therapy at this time due to not sleeping well last night. He requested therapy to come back because he had just received his pain pill and was falling asleep. Reminded Pt the importance of therapy and how working with therapy after receiving his pain pill will benefit him. Pt agreed however, continued to decline treatment due to fatigue. Will attempt therapy session again.
--- NOTE | 2020-07-03 11:00 | PCNWS ---
Weekly nutritional screen. Patient is tolerating [facility] diet with fluid restriction of 1,800 mL./day with an average of 91% or more meal consumption. Patient states experiencing metallic taste of food, believes it may be related to medications. Patient states having some nausea in the morning but still eating most of meals. Patients weight remains stable. No nutritional needs at this time.
[2020-07-03 11:45] LABS: Glucose Point of Care 94 (65-105)
--- NOTE | 2020-07-03 13:24 | PCNSR ---
On 07/03/20, the student, [Enrike Suarez ], provided care and completed [facility] documentation on this patient. I have reviewed the student's documentation and agree with the findings.
[2020-07-03 13:33] VITALS: BP 143/61; PULSE 79; RESP 18; TEMP 35.9; O2SAT 99
--- NOTE | 2020-07-03 13:52 | PM.IMPN ---
Progress Note: A&P Assessment and Plan (1) Cellulitis of scrotum: Code(s): N49.2 - Inflammatory disorders of scrotum Status: Acute Assessment and Plan: Continue with Primaxin and vancomycin. Urology has seen the patient. He is too big to be able to wear the scrotal support at this time. I will stop IV vancomycin as blood and urine negative to date. Patient creatinine BUN is rising will go and stop IV Lasix, continue metolazone, we monitor patient overnight patient BUN and creatinine keep rising even though patient is off IV Lasix for 2 days, to further evaluate patient had a kidney ultrasound which is essentially normal, will consult assistant sales manager further opinion and further recommendation to follow meanwhile we are holding diuretics and blood pressure medication. As per previous notes. Pt encouraged to walk to help reduce swelling alot of central swelling. Patient had left shoulder surgery approximately 1 week ago at [facility] which may have contributed to his edematous state post op. Pt started on bumex iv yesterday and is passing good urine output. Daily weights (2) Congestive heart failure: Qualifiers: Heart failure type: unspecified Heart failure chronicity: chronic Qualified Code(s): I50.9 - Heart failure, unspecified Code(s): I50.9 - Heart failure, unspecified Status: Chronic Assessment and Plan: Awaiting echo EF 65%, IV lasix and lisinopril on hold due to Creat elevation Pt is to continue on metoprolol and on Zaroxolyn. On iv bumex (3) Morbid obesity: Code(s): E66.01 - Morbid (severe) obesity due to excess calories Status: Acute Assessment and Plan: Patient's BMI is 60. (4) Essential (primary) hypertension: Code(s): I10 - Essential (primary) hypertension Status: Acute Assessment and Plan: Continue with metoprolol. (5) PERLITA on CPAP: Code(s): G47.33 - Obstructive sleep apnea (adult) (pediatric); Z99.89 - Dependence on other enabling machines and devices Status: Acute Assessment and Plan: Continue with CPAP machine (6) Type 2 diabetes mellitus without complication, with long-term current use of insulin: Code(s): E11.9 - Type 2 diabetes mellitus without complications; Z79.4 - [facility] (current) use of insulin Status: Acute Assessment and Plan: Patient made an agreement with us that he would use his insulin pump (7) Hyperlipidemia: Code(s): E78.5 - Hyperlipidemia, unspecified Status: Chronic Assessment and Plan: Continue with atorvastatin (8) CAD (coronary artery disease): Code(s): I25.10 - Atherosclerotic heart disease of [place] coronary artery without angina pectoris Status: Chronic Assessment and Plan: patient is on Brilinta, aspirin and isosorbide. He is also on metoprolol. He has had a total of 4 stents. (9) Depression: Code(s): F32.9 - Major depressive disorder, single episode, unspecified Status: Chronic Assessment and Plan: continue with Zoloft. Additional Plan Patient had left shoulder surgery approximately 1 week ago at [facility] the area looks well approximated without any signs and symptoms of infection. Subjective Date/time seen: 07/03/20 13:52 Interval history: 64-year-old male morbidly obese with BMI of 60 past medical history of type 1 diabetes on insulin pump, congestive heart failure S/P left shoulder surgery about a week ago and Pt has history of scrotal cellulitis, presented to emergency department with a complaint of redness swelling and tenderness along his scrotum patient had a ultrasound it showed 1. Severe scrotal edema. 2. Small bilateral hydrocele and normal testicle, patient is diagnosed with cellulitis and being treated with vancomycin and imipenem, with extensive edema along his scrotum and pelvis started the patient on IV Lasix 40mg daily to help in diureses as well as restrict fluid int
--- NOTE | 2020-07-03 15:46 | P.PNNP_ITS ---
Progress Note: A&P Assessment and Plan (1) CELSO (acute kidney injury): Code(s): N17.9 - Acute kidney failure, unspecified Status: Acute Assessment and Plan: * resolved * etiology not clear - overdiuresis - relative hypotension - infection(?) - antibiotics (acute vs chronic interstitial nephritis?) - something else? * only real intervention to date was holding IV lasix and lisinopril * renal ultrasound normal * urine studies suggestive of pre-renal azotemia despite outward signs of volume overload - started on IV bumex - this may be a situation where we have to accept a higher creatinine to achieve some degree of euvolemia... * follow trend of repeat labs and UOP (2) Scrotal swelling: Code(s): N50.89 - Other specified disorders of the male genital organs Status: Acute Assessment and Plan: * more edema than infection per Urology * scrotal support * on IV bumex (still on metolazone) (3) Cellulitis of scrotum: Code(s): N49.2 - Inflammatory disorders of scrotum Status: Acute Assessment and Plan: * less likely per Urology * de-escalte antibiotics? (4) Hypertension: Code(s): I10 - Essential (primary) hypertension Status: Acute Assessment and Plan: * BP has been running on the lower side recently - lower BP contributing to #1(?) * BP medication with parameters ordered * follow trend of hemodynamics (5) Diabetes: Code(s): E11.9 - Type 2 diabetes mellitus without complications Status: Chronic Assessment and Plan: * follow accuchecks * on SSI Will continue to follow. Subjective Date/time seen: 07/03/20 15:46 No apparent distress voiced at this time; restarted on IV loop diuretics (bumex) yesterday; appears to be tolerating reasonably well; no events overnight or earlier this AM. Exam Narrative: Exam Narrative: General: Large male in NAD Heart: normal S1 and S2; no rub Lungs: clear to auscultation Abdomen: soft, nontender, nondistended, positive bowel sounds Extremities: no cyanosis or clubbing; 3+ edema Skin: chronic edematous changes present Objective Data Vital Signs Vital Signs: Vital Signs Temp Pulse Resp BP Pulse Ox 07/03/20 13:33 35.9 C L 79 18 143/61 H 99 08/27/20 08:34 70 07/03/20 04:00 35.9 C L 70 20 133/95 H 98 07/02/20 21:02 86 07/02/20 20:00 36.1 C L 85 22 H 121/57 L 97 Intake/Output Intake/Output: Intake & Output 06/30/20 07/01/20 07/02/20 07/03/20 23:59 23:59 23:59 23:59 Intake Total 2200 1660 2340 900 Output Total 600 Balance 2200 1660 1740 900 Meds/Results Medications: Active Medications Generic Name Dose Route Start Last Admin Trade Name Freq PRN Reason Stop Dose Admin Hydrocodone Bitart/Acetaminophen 1 tab 06/30/20 20:23 07/03/20 15:31 [place] 10-325 Mg PO 1 tab Q4H PRN Administration Pain Rated 7-10 Aspirin 81 mg 06/26/20 09:00 07/03/20 08:34 Aspirin Ec PO 81 mg DAILY ADALBERTO Administration Atorvastatin Calcium 80 mg 06/26/20 18:00 07/02/20 17:14 Lipitor PO 80 mg QPM ADALBERTO Administration Bumetanide 1 mg 07/03/20 17
--- NOTE | 2020-07-03 15:46 | PM.PNNEP ---
Progress Note: A&P Assessment and Plan (1) CELSO (acute kidney injury): Code(s): N17.9 - Acute kidney failure, unspecified Status: Acute Assessment and Plan: resolved etiology not clear - overdiuresis - relative hypotension - infection(?) - antibiotics (acute vs chronic interstitial nephritis?) - something else? only real intervention to date was holding IV lasix and lisinopril renal ultrasound normal urine studies suggestive of pre-renal azotemia despite outward signs of volume overload - started on IV bumex - this may be a situation where we have to accept a higher creatinine to achieve some degree of euvolemia... follow trend of repeat labs and UOP (2) Scrotal swelling: Code(s): N50.89 - Other specified disorders of the male genital organs Status: Acute Assessment and Plan: more edema than infection per Urology scrotal support on IV bumex (still on metolazone) (3) Cellulitis of scrotum: Code(s): N49.2 - Inflammatory disorders of scrotum Status: Acute Assessment and Plan: less likely per Urology de-escalte antibiotics? (4) Hypertension: Code(s): I10 - Essential (primary) hypertension Status: Acute Assessment and Plan: BP has been running on the lower side recently - lower BP contributing to #1(?) BP medication with parameters ordered follow trend of hemodynamics (5) Diabetes: Code(s): E11.9 - Type 2 diabetes mellitus without complications Status: Chronic Assessment and Plan: follow accuchecks on SSI Will continue to follow. Subjective Date/time seen: 07/03/20 15:46 No apparent distress voiced at this time; restarted on IV loop diuretics (bumex) yesterday; appears to be tolerating reasonably well; no events overnight or earlier this AM. Exam Narrative: Exam Narrative: General: Large male in NAD Heart: normal S1 and S2; no rub Lungs: clear to auscultation Abdomen: soft, nontender, nondistended, positive bowel sounds Extremities: no cyanosis or clubbing; 3+ edema Skin: chronic edematous changes present Objective Data Vital Signs Vital Signs: Vital Signs Temp Pulse Resp BP Pulse Ox 07/03/20 13:33 35.9 C L 79 18 143/61 H 99 07/03/20 08:34 70 07/03/20 04:00 35.9 C L 70 20 133/95 H 98 07/02/20 21:02 86 07/02/20 20:00 36.1 C L 85 22 H 121/57 L 97 Intake/Output Intake/Output: Intake & Output 06/30/20 07/01/20 07/02/20 07/03/20 23:59 23:59 23:59 23:59 Intake Total 2200 1660 2340 900 Output Total 600 Balance 2200 1660 1740 900 Meds/Results Medications: Active Medications Generic Name Dose Route Start Last Admin Trade Name Freq PRN Reason Stop Dose Admin Hydrocodone Bitart/Acetaminophen 1 tab 06/30/20 20:23 07/03/20 15:31 [place] 10-325 Mg PO 1 tab Q4H PRN Administration Pain Rated 7-10 Aspirin 81 mg 06/26/20 09:00 07/03/20 08:34 Aspirin Ec PO 81 mg DAILY ADALBERTO Administration Atorvastatin Calcium 80 mg 06/26/20 18:00 07/02/20 17:14 Lipitor PO 80 mg QPM ADALBERTO Administration Bumetanide 1 mg 07/03/20 17:00 Bumex Inj IV PUSH BID ADALBERTO Calcium Carbonate 200 mg 06/25/20 20:47 06/30/20 03:35 Tums PO 200 mg Q6H PRN Administration Indigestion Gabapentin 800 mg 06/26/20 09:00 07/03/20 08:34 Neurontin PO 800 mg BID ADALBERTO Administration Imipenem/Cilastatin Sodium 500 mg in 100 mls @ 300 mls/hr 06/25/20 18:00 07/03/20 11:46 Primaxin 500 Mg/D5w 100 Ml IVPB Infused Q6HR [facility] Infusion Insulin Human Regular 230 - 260 each 06/26/20 08:00 07/03/20 12:18 Home Medication Insulin SUB-Q Not Given ACINSULIN ADALBERTO Isosorbide Mononitrate 30 mg 06/26/20 09:00 07/03/20 08:35 Imdur PO 30 mg DAILY ADALBERTO Administration Lisinopril 20 mg 06/26/20 09:00 06/30/20 09:33 Prinivil PO Not Given ORESTES
[2020-07-03 16:25] LABS: Glucose Point of Care 73 (65-105)
[2020-07-03] MEDS: ATORVASTATIN 40 MG TABLET 80 MG PO (17:23)
[2020-07-03 20:00] VITALS: BP 133/61; PULSE 83; RESP 18; TEMP 36.2; O2SAT 97
[2020-07-03 20:21] VITALS: PULSE 86
[2020-07-03 22:59] LABS: Glucose Point of Care 69 (65-105)
[2020-07-04 06:00] VITALS: BP 130/66; PULSE 84; RESP 22; TEMP 36.1; O2SAT 100
[2020-07-04 06:07] LABS: Anion Gap 9 mmol/L (8-16); Blood Urea Nitrogen 37 mg/dL (9-20); Calcium 8.9 mg/dL (8.4-10.2); Carbon Dioxide 34 mmol/L (22-30); Chloride 92 mmol/L (98-107); Estimated CRCL calculation 120 ml/min; Estimated Glomerular Filt Rate > 60; Glucose 63 mg/dL (75-110); Phosphorus 5.3 mg/dL (2.5-4.5); Potassium 3.3 mmol/L (3.4-5.0); Sodium 135 mmol/L (137-145)
[2020-07-04 07:50] LABS: Glucose Point of Care 103 (65-105)
[2020-07-04 08:21] VITALS: PULSE 84
[2020-07-04] MEDS: GABAPENTIN 400 MG CAPSULE 800 MG PO ×2 (08:21→17:27)
[2020-07-04] MEDS: METOPROLOL SUCCINATE EXT REL 25 MG TABCR PO ×2 (08:21→20:28)
[2020-07-04] MEDS: ASPIRIN 81 MG ENTERIC TABLET PO (08:21)
[2020-07-04] MEDS: TICAGRELOR 90 MG TABLET PO ×2 (08:21→20:28)
[2020-07-04] MEDS: SERTRALINE HCL 50 MG TABLET 100 MG PO (08:21)
[2020-07-04] MEDS: metOLazone 5 MG TABLET PO (08:21)
[2020-07-04] MEDS: BUMETANIDE INJ 1 MG/4 ML VIAL IV PUSH ×2 (08:21→17:27)
[2020-07-04] MEDS: ISOSORBIDE MONONITRATE 30 MG TAB.ER.24H PO (08:21)
--- NOTE | 2020-07-04 11:19 | PM.IMPN ---
Progress Note: A&P Assessment and Plan (1) Cellulitis of scrotum: Code(s): N49.2 - Inflammatory disorders of scrotum Status: Acute Assessment and Plan: Continue with Primaxin and vancomycin. Urology has seen the patient. He is too big to be able to wear the scrotal support at this time. I will stop IV vancomycin as blood and urine negative to date. Patient creatinine BUN is rising will go and stop IV Lasix, continue metolazone, we monitor patient overnight patient BUN and creatinine keep rising even though patient is off IV Lasix for 2 days, to further evaluate patient had a kidney ultrasound which is essentially normal, will consult unit technician further opinion and further recommendation to follow meanwhile we are holding diuretics and blood pressure medication. As per previous notes. Pt encouraged to walk to help reduce swelling alot of central swelling. Patient had left shoulder surgery approximately 1 week ago at [facility] which may have contributed to his edematous state post op. Pt started on bumex iv yesterday and is passing good urine output. Daily weights (2) Congestive heart failure: Qualifiers: Heart failure type: unspecified Heart failure chronicity: chronic Qualified Code(s): I50.9 - Heart failure, unspecified Code(s): I50.9 - Heart failure, unspecified Status: Chronic Assessment and Plan: Awaiting echo EF 65%, IV lasix and lisinopril on hold due to Creat elevation Pt is to continue on metoprolol and on Zaroxolyn. On iv bumex (3) Morbid obesity: Code(s): E66.01 - Morbid (severe) obesity due to excess calories Status: Acute Assessment and Plan: Patient's BMI is 60. (4) Essential (primary) hypertension: Code(s): I10 - Essential (primary) hypertension Status: Acute Assessment and Plan: Continue with metoprolol. (5) PERLITA on CPAP: Code(s): G47.33 - Obstructive sleep apnea (adult) (pediatric); Z99.89 - Dependence on other enabling machines and devices Status: Acute Assessment and Plan: Continue with CPAP machine (6) Type 2 diabetes mellitus without complication, with long-term current use of insulin: Code(s): E11.9 - Type 2 diabetes mellitus without complications; Z79.4 - custodial (current) use of insulin Status: Acute Assessment and Plan: On insulin pump (7) Hyperlipidemia: Code(s): E78.5 - Hyperlipidemia, unspecified Status: Chronic Assessment and Plan: Continue with atorvastatin (8) CAD (coronary artery disease): Code(s): I25.10 - Atherosclerotic heart disease of [place] coronary artery without angina pectoris Status: Chronic Assessment and Plan: patient is on Brilinta, aspirin and isosorbide. He is also on metoprolol. He has had a total of 4 stents. (9) Depression: Code(s): F32.9 - Major depressive disorder, single episode, unspecified Status: Chronic Assessment and Plan: continue with Zoloft. Additional Plan Patient had left shoulder surgery approximately 1 week ago at [facility] Date/time seen: 07/04/20 11:19 Interval history: 64-year-old male morbidly obese with BMI of 60 past medical history of type 1 diabetes on insulin pump, congestive heart failure S/P left shoulder surgery about a week ago and Pt has history of scrotal cellulitis, presented to emergency department with a complaint of redness swelling and tenderness along his scrotum. Pt on bumex iv now and is passing alot of urine Pt adviced to ambulate as he has alot of fluid centrally,abdominal and srotum edema and sweling improving well. Review of Systems Review of Systems: ROS unobtainable: Yes other (EDEMA of abdomen and scrotum ) Exam Narrative: Exam Narrative: morbidly obese Const: General: Physically active Nutritional Appearance: average body habitus and well nourished Orientation/consciousness: oriented to person, or
[2020-07-04 12:25] LABS: Glucose Point of Care 115 (65-105)
[2020-07-04 14:00] VITALS: BP 122/69; PULSE 82; RESP 20; TEMP 36.3; O2SAT 99
--- NOTE | 2020-07-04 15:01 | PM.PNNEP ---
Progress Note: A&P Assessment and Plan (1) CELSO (acute kidney injury): Code(s): N17.9 - Acute kidney failure, unspecified Status: Acute Assessment and Plan: resolved etiology not clear - overdiuresis - relative hypotension - infection(?) - antibiotics (acute vs chronic interstitial nephritis?) - something else? only real intervention to date was holding IV lasix and lisinopril renal ultrasound normal urine studies suggestive of pre-renal azotemia despite outward signs of volume overload - started on IV bumex - this may be a situation where we have to accept a higher creatinine to achieve some degree of euvolemia... follow trend of repeat labs and UOP (2) Scrotal swelling: Code(s): N50.89 - Other specified disorders of the male genital organs Status: Acute Assessment and Plan: more edema than infection per Urology scrotal support on IV bumex (still on metolazoneas well) (3) Cellulitis of scrotum: Code(s): N49.2 - Inflammatory disorders of scrotum Status: Acute Assessment and Plan: less likely per Urology de-escalte antibiotics? (4) Hypertension: Code(s): I10 - Essential (primary) hypertension Status: Acute Assessment and Plan: BP has been running on the lower side recently - lower BP contributing to #1(?) BP medication with parameters ordered follow trend of hemodynamics (5) Diabetes: Code(s): E11.9 - Type 2 diabetes mellitus without complications Status: Chronic Assessment and Plan: follow accuchecks on SSI Will continue to follow. Subjective Date/time seen: 07/04/20 15:01 Appears to be tolerating IV bumex reasonably well; no apparent events/issues overnight or earlier this AM; no distress or acute complaints voiced at this time. Exam Narrative: Exam Narrative: General: Large male in NAD Heart: normal S1 and S2; no rub Lungs: clear to auscultation Abdomen: soft, nontender, nondistended, positive bowel sounds Extremities: no cyanosis or clubbing; 3+ edema Skin: chronic edematous changes present Objective Data Vital Signs Vital Signs: Vital Signs Temp Pulse Resp BP Pulse Ox 07/04/20 14:00 36.3 C L 82 20 122/69 99 07/04/20 08:21 84 07/04/20 06:00 36.1 C L 84 22 H 130/66 100 07/03/20 20:21 86 07/03/20 20:00 36.2 C L 83 18 133/61 97 Intake/Output Intake/Output: Intake & Output 07/01/20 07/02/20 07/03/20 07/04/20 23:59 23:59 23:59 23:59 Intake Total 1660 2340 1840 920 Output Total 600 500 900 Balance 1660 1740 1340 20 Meds/Results Medications: Active Medications Generic Name Dose Route Start Last Admin Trade Name Freq PRN Reason Stop Dose Admin Hydrocodone Bitart/Acetaminophen 1 tab 06/30/20 20:23 07/04/20 12:30 [place] 10-325 Mg PO 1 tab Q4H PRN Administration Pain Rated 7-10 Aspirin 81 mg 06/26/20 09:00 07/04/20 08:21 Aspirin Ec PO 81 mg DAILY ADALBERTO Administration Atorvastatin Calcium 80 mg 06/26/20 18:00 07/03/20 17:23 Lipitor PO 80 mg QPM ADALBERTO Administration Bumetanide 1 mg 07/03/20 17:00 07/04/20 08:21 Bumex Inj IV PUSH 1 mg BID ADALBERTO Administration Calcium Carbonate 200 mg 06/25/20 20:47 06/30/20 03:35 Tums PO 200 mg Q6H PRN Administration Indigestion Gabapentin 800 mg 06/26/20 09:00 07/04/20 08:21 Neurontin PO 800 mg BID ADALBERTO Administration Imipenem/Cilastatin Sodium 500 mg in 100 mls @ 300 mls/hr 06/25/20 18:00 07/04/20 12:29 Primaxin 500 Mg/D5w 100 Ml IVPB 300 mls/hr Q6HR ADALBERTO Administration Insulin Human Regular 230 - 260 each 06/26/20 08:00 07/04/20 12:35 Home Medication Insulin SUB-Q Not Given ACINSULIN ADALBERTO Isosorbide Mononitrate 30 mg 06/26/20 09:00 07/04/20 08:21 Imdur PO 30 mg DAILY ADALBERTO Administration Lisinopril 20 mg 06/26/20 09:00 06/30/20 09:
[2020-07-04] MEDS: ATORVASTATIN 40 MG TABLET 80 MG PO (17:27)
[2020-07-04 18:23] LABS: Glucose Point of Care 102 (65-105)
[2020-07-04 20:28] VITALS: PULSE 82
[2020-07-04 20:33] LABS: Glucose Point of Care 130 (65-105)
[2020-07-04 22:00] VITALS: BP 133/64; PULSE 92; RESP 20; TEMP 36.1; O2SAT 98
[2020-07-05 06:00] VITALS: BP 123/66; PULSE 83; RESP 20; TEMP 36; O2SAT 93
[2020-07-05 06:13] LABS: Anion Gap 7 mmol/L (8-16); Blood Urea Nitrogen 34 mg/dL (9-20); Carbon Dioxide 37 mmol/L (22-30); Chloride 90 mmol/L (98-107); Estimated CRCL calculation 115 ml/min; Estimated Glomerular Filt Rate > 60; Glucose 69 mg/dL (75-110); Phosphorus 4.2 mg/dL (2.5-4.5); Potassium 3.1 mmol/L (3.4-5.0); Sodium 134 mmol/L (137-145)
[2020-07-05 08:42] LABS: Glucose Point of Care 134 (65-105)
[2020-07-05 08:57] VITALS: PULSE 83
[2020-07-05] MEDS: TICAGRELOR 90 MG TABLET PO ×2 (08:57→21:06)
[2020-07-05] MEDS: ASPIRIN 81 MG ENTERIC TABLET PO (08:57)
[2020-07-05] MEDS: GABAPENTIN 400 MG CAPSULE 800 MG PO ×2 (08:57→17:49)
[2020-07-05] MEDS: ISOSORBIDE MONONITRATE 30 MG TAB.ER.24H PO (08:57)
[2020-07-05] MEDS: metOLazone 5 MG TABLET PO (08:57)
[2020-07-05] MEDS: METOPROLOL SUCCINATE EXT REL 25 MG TABCR PO ×2 (08:57→21:06)
[2020-07-05] MEDS: SERTRALINE HCL 50 MG TABLET 100 MG PO (08:57)
[2020-07-05] MEDS: BUMETANIDE INJ 1 MG/4 ML VIAL IV PUSH (08:57)
[2020-07-05 11:59] LABS: Glucose Point of Care 97 (65-105)
[2020-07-05 14:00] VITALS: BP 117/56; PULSE 82; RESP 18; TEMP 36.4; O2SAT 93
--- NOTE | 2020-07-05 14:39 | PM.PNNEP ---
Progress Note: A&P Assessment and Plan (1) CELSO (acute kidney injury): Code(s): N17.9 - Acute kidney failure, unspecified Status: Acute Assessment and Plan: resolved etiology not clear - overdiuresis - relative hypotension - infection(?) - antibiotics (acute vs chronic interstitial nephritis?) - third spacing from volume overload resulting in pre-renal physiology - something else? only real intervention to date was holding IV lasix as well as lisinopril and placing holding parameters on BP medications renal ultrasound normal urine studies suggestive of pre-renal azotemia despite outward signs of volume overload - started on IV bumex (in addition to metolazone which he was already taking/on) - this may be a situation where we have to accept a higher creatinine to achieve some degree of euvolemia... follow trend of repeat labs and UOP okay to transition to oral bumex today (2) Scrotal swelling: Code(s): N50.89 - Other specified disorders of the male genital organs Status: Acute Assessment and Plan: more edema than infection per Urology scrotal support on IV bumex (still on metolazone as well) - transition to oral bumex today (3) Cellulitis of scrotum: Code(s): N49.2 - Inflammatory disorders of scrotum Status: Acute Assessment and Plan: less likely per Urology de-escalte antibiotics? (4) Hypertension: Code(s): I10 - Essential (primary) hypertension Status: Acute Assessment and Plan: BP has been running on the lower side recently - lower BP contributing to #1(?) BP medication with parameters ordered follow trend of hemodynamics (5) Diabetes: Code(s): E11.9 - Type 2 diabetes mellitus without complications Status: Chronic Assessment and Plan: follow accuchecks on SSI Discussed with Dr. Camp. Will continue to follow. Subjective Date/time seen: 07/05/20 14:39 Appears to be doing better; reports improvement in swelling/edema in last couple of days with reasonable diuresis in that time frame with current diuretic therapy; no apparent distress noted at this time. Exam Narrative: Exam Narrative: General: Large male in NAD Heart: normal S1 and S2; no rub Lungs: clear to auscultation Abdomen: soft, nontender, nondistended, positive bowel sounds Extremities: no cyanosis or clubbing; 2+ edema Skin: chronic edematous changes present Objective Data Vital Signs Vital Signs: Vital Signs Temp Pulse Resp BP Pulse Ox 07/05/20 08:57 83 07/05/20 06:00 36.0 C L 83 20 123/66 93 07/04/20 22:00 36.1 C L 92 20 133/64 98 07/04/20 20:28 82 Intake/Output Intake/Output: Intake & Output 07/02/20 07/03/20 07/04/20 07/05/20 23:59 23:59 23:59 23:59 Intake Total 2340 2440 1120 1160 Output Total 946 089 1362 Balance 1740 1940 -2180 1160 Meds/Results Medications: Active Medications Generic Name Dose Route Start Last Admin Trade Name Freq PRN Reason Stop Dose Admin Hydrocodone Bitart/Acetaminophen 1 tab 06/30/20 20:23 07/05/20 06:32 [place] 10-325 Mg PO 1 tab Q4H PRN Administration Pain Rated 7-10 Aspirin 81 mg 06/26/20 09:00 07/05/20 08:57 Aspirin Ec PO 81 mg DAILY ADALBERTO Administration Atorvastatin Calcium 80 mg 06/26/20 18:00 07/04/20 17:27 Lipitor PO 80 mg QPM ADALBERTO Administration Bumetanide 1 mg 07/05/20 17:00 Bumex Po PO BID [facility] Calcium Carbonate 200 mg 06/25/20 20:47 06/30/20 03:35 Tums PO 200 mg Q6H PRN Administration Indigestion Gabapentin 800 mg 06/26/20 09:00 07/05/20 08:57 Neurontin PO 800 mg BID ADALBERTO Administration Imipenem/Cilastatin Sodium 500 mg in 100 mls @ 300 mls/hr 06/25/20 18:00 07/05/20 12:55 Primaxin 500 Mg/D5w 100 Ml IVPB 300 mls/hr Q6HR ADALBERTO Administration Insulin Human Regular 230 - 260 each 0
--- NOTE | 2020-07-05 16:02 | PM.IMPN ---
Progress Note: A&P Assessment and Plan (1) Cellulitis of scrotum: Code(s): N49.2 - Inflammatory disorders of scrotum Status: Acute Assessment and Plan: Continue with Primaxin and vancomycin. Urology has seen the patient. He is too big to be able to wear the scrotal support at this time. stopped IV vancomycin as blood and urine negative to date. 07/05/20 16:02 Patient is 64-year-old male morbidly obese with BMI of 60 past medical history of type 1 diabetes on insulin pump, congestive heart failure S/P left shoulder surgery about a week ago and Pt has history of scrotal cellulitis, presented to emergency department with a complaint of redness swelling and tenderness along his scrotum patient had a ultrasound it showed 1. Severe scrotal edema. 2. Small bilateral hydrocele and normal testicle, patient is diagnosed with cellulitis and being treated with vancomycin and imipenem, with extensive edema along his scrotum and pelvis started the patient on IV Lasix 40mg daily to help in diureses as well as restrict fluid intake to 1800 cc per day, seen by urologist agree with the current management, on 06.26 Lasix 40 mg IV q daily there was no significant increasing urine output or decrease in edema, on 06/27 we increase Lasix 40 mg IV b.i.d. patient is also on metolazone, and there was increase in urine output and minimal decrease in edema and pain however today patient creatinine BUN is rising will go and stop IV Lasix, continue metolazone, we monitor patient overnight patient BUN and creatinine keep rising even though patient is off IV Lasix for 2 days, to further evaluate patient had a kidney ultrasound which is essentially normal, patient is seen nephrology and stop listening as well as Lasix, monitor, patient kidney function is improved and creatinine is close to normal, patient was started on Bumex 1 mg IV b.i.d., overall symptoms are today patient states feeling better the swelling along scrotum is also improving and is able to ambulate somewhat without much pain, discussed with court specialist will switch patient to oral Bumex and monitor today and possibly tomorrow remains clinically stable may discharge the patient home on Tuesday. (2) Congestive heart failure: Qualifiers: Heart failure type: unspecified Heart failure chronicity: chronic Qualified Code(s): I50.9 - Heart failure, unspecified Code(s): I50.9 - Heart failure, unspecified Status: Chronic Assessment and Plan: Awaiting echo EF 65%, IV lasix and lisinopril on hold due to Creat elevation Pt is to continue on metoprolol and on Zaroxolyn. On iv bumex (3) Morbid obesity: Code(s): E66.01 - Morbid (severe) obesity due to excess calories Status: Acute Assessment and Plan: Patient's BMI is 60. (4) Essential (primary) hypertension: Code(s): I10 - Essential (primary) hypertension Status: Acute Assessment and Plan: Continue with metoprolol. (5) PERLITA on CPAP: Code(s): G47.33 - Obstructive sleep apnea (adult) (pediatric); Z99.89 - Dependence on other enabling machines and devices Status: Acute Assessment and Plan: Continue with CPAP machine (6) Type 2 diabetes mellitus without complication, with long-term current use of insulin: Code(s): E11.9 - Type 2 diabetes mellitus without complications; Z79.4 - long-term (current) use of insulin Status: Acute Assessment and Plan: On insulin pump (7) Hyperlipidemia: Code(s): E78.5 - Hyperlipidemia, unspecified Status: Chronic Assessment and Plan: Continue with atorvastatin (8) CAD (coronary artery disease): Code(s): I25.10 - Atherosclerotic heart disease of [place] coronary artery without angina pectoris Status: Chronic Assessment and Plan: patient is on Brilinta, aspirin and isosorbide. He is also on metoprolol. He has had a total of 4 stents. (9) Depression: Cod
[2020-07-05 16:31] LABS: Glucose Point of Care 97 (65-105)
[2020-07-05 17:04] LABS: Chloride Rand Ur <20 mmol/L (32-290); Creatinine Random Urine 118 mg/dL (20-320)
[2020-07-05] MEDS: ATORVASTATIN 40 MG TABLET 80 MG PO (17:49)
[2020-07-05] MEDS: BUMETANIDE 1 MG TABLET PO (17:49)
[2020-07-05 21:06] VITALS: PULSE 82
[2020-07-05] MEDS: MICONAZOLE NITRATE 2% CREAM 30 GM TUBE 1 APPLIC TOPICAL (21:06)
[2020-07-05 21:17] LABS: Glucose Point of Care 98 (65-105)
[2020-07-05 22:00] VITALS: BP 112/67; PULSE 83; RESP 16; TEMP 36.1; O2SAT 99
[2020-07-06 06:00] VITALS: BP 139/71; PULSE 83; RESP 18; TEMP 36.1; O2SAT 95
[2020-07-06 07:15] LABS: Potassium 3.1 mmol/L (3.4-5.0)
[2020-07-06 07:16] LABS: Albumin Level 4.2 g/dL (3.5-5.1); Anion Gap 7.99999 mmol/L (8-16); Blood Urea Nitrogen 30 mg/dL (9-20); Calcium 9.5 mg/dL (8.4-10.2); Carbon Dioxide > 40 mmol/L (22-30); Chloride 87 mmol/L (98-107); Estimated CRCL calculation 106 ml/min; Estimated Glomerular Filt Rate > 60; Glucose 167 mg/dL (75-110); Phosphorus 4.6 mg/dL (2.5-4.5); Sodium 135 mmol/L (137-145)
[2020-07-06 07:45] LABS: Glucose Point of Care 219 (65-105)
[2020-07-06] MEDS: ASPIRIN 81 MG ENTERIC TABLET PO (08:48)
[2020-07-06 08:49] VITALS: PULSE 80
[2020-07-06] MEDS: POTASSIUM CHLORIDE 20 MEQ TABLET 40 MEQ PO (08:49)
[2020-07-06] MEDS: SERTRALINE HCL 50 MG TABLET 100 MG PO (08:49)
[2020-07-06] MEDS: GABAPENTIN 400 MG CAPSULE 800 MG PO ×2 (08:49→17:07)
[2020-07-06] MEDS: METOPROLOL SUCCINATE EXT REL 25 MG TABCR PO ×2 (08:49→20:04)
[2020-07-06] MEDS: ISOSORBIDE MONONITRATE 30 MG TAB.ER.24H PO (08:49)
[2020-07-06] MEDS: TICAGRELOR 90 MG TABLET PO ×2 (08:49→20:04)
[2020-07-06] MEDS: metOLazone 5 MG TABLET PO (08:49)
[2020-07-06] MEDS: acetaZOLAMIDE SODIUM FOR INJ 500 MG VIAL 250 MG IV PUSH (08:50)
[2020-07-06] MEDS: MICONAZOLE NITRATE 2% CREAM 30 GM TUBE 1 APPLIC TOPICAL ×2 (08:52→20:04)
[2020-07-06] MEDS: BUMETANIDE 1 MG TABLET PO ×2 (08:52→17:07)
[2020-07-06 11:45] LABS: Glucose Point of Care 316 (65-105)
--- NOTE | 2020-07-06 12:50 | PCPTNOTE ---
Attempted therapy session at 12:45. Pt refused therapy stating I just got back in bed and just got comfortable. Explained to the Pt the importance of therapy and offered to have Pt participate in Supine B LE exercises. Pt continued to decline and stated No, I just got comfortable and I might be going home today. So, I'm going to have to pass on therapy.
--- NOTE | 2020-07-06 13:56 | PM.IMPN ---
Progress Note: A&P Assessment and Plan (1) Cellulitis of scrotum: Code(s): N49.2 - Inflammatory disorders of scrotum Status: Acute Assessment and Plan: 07/06/20 13:56 Patient is 64-year-old male morbidly obese with BMI of 60 past medical history of type 1 diabetes on insulin pump, congestive heart failure S/P left shoulder surgery about a week ago and Pt has history of scrotal cellulitis, presented to emergency department with a complaint of redness swelling and tenderness along his scrotum patient had a ultrasound it showed 1. Severe scrotal edema. 2. Small bilateral hydrocele and normal testicle, patient is diagnosed with cellulitis and being treated with vancomycin and imipenem, with extensive edema along his scrotum and pelvis started the patient on IV Lasix 40mg daily to help in diureses as well as restrict fluid intake to 1800 cc per day, seen by urologist agree with the current management, on 06.26 Lasix 40 mg IV q daily there was no significant increasing urine output or decrease in edema, on 06/27 we increase Lasix 40 mg IV b.i.d. patient is also on metolazone, and there was increase in urine output and minimal decrease in edema and pain however today patient creatinine BUN is rising will go and stop IV Lasix, continue metolazone, we monitor patient overnight patient BUN and creatinine keep rising even though patient is off IV Lasix for 2 days, to further evaluate patient had a kidney ultrasound which is essentially normal, patient is seen nephrology and stop listening as well as Lasix, monitor, patient kidney function is improved and creatinine is close to normal, patient was started on Bumex 1 mg IV b.i.d., overall symptoms are today patient states feeling better the swelling along scrotum is also improving and is able to ambulate somewhat without much pain, on 07/05 discussed with liability analyst switched patient to oral Bumex and tolerating, he was on lisinopril 20 mg q.day was hold because of low BP and elevated creatinine, his creatinine is improved his blood pressures rising and has a low potassium, will discuss with the liability analyst to restart lisinopril and further recommendation to follow, today is doing better and wants to go home, (2) Congestive heart failure: Qualifiers: Heart failure type: unspecified Heart failure chronicity: chronic Qualified Code(s): I50.9 - Heart failure, unspecified Code(s): I50.9 - Heart failure, unspecified Status: Chronic Assessment and Plan: Awaiting echo EF 65%, IV lasix and lisinopril on hold due to Creat elevation Pt is to continue on metoprolol and on Zaroxolyn. On iv bumex (3) Morbid obesity: Code(s): E66.01 - Morbid (severe) obesity due to excess calories Status: Acute Assessment and Plan: Patient's BMI is 60. (4) Essential (primary) hypertension: Code(s): I10 - Essential (primary) hypertension Status: Acute Assessment and Plan: Continue with metoprolol. (5) PERLITA on CPAP: Code(s): G47.33 - Obstructive sleep apnea (adult) (pediatric); Z99.89 - Dependence on other enabling machines and devices Status: Acute Assessment and Plan: Continue with CPAP machine (6) Type 2 diabetes mellitus without complication, with long-term current use of insulin: Code(s): E11.9 - Type 2 diabetes mellitus without complications; Z79.4 - custodial (current) use of insulin Status: Acute Assessment and Plan: On insulin pump (7) Hyperlipidemia: Code(s): E78.5 - Hyperlipidemia, unspecified Status: Chronic Assessment and Plan: Continue with atorvastatin (8) CAD (coronary artery disease): Code(s): I25.10 - Atherosclerotic heart disease of [place] coronary artery without angina pectoris Status: Chronic Assessment and Plan: patient is on Brilinta, aspirin and isosorbide. He is also on metoprolol. He has had a total of 4 stents. (9) De
[2020-07-06 14:00] VITALS: BP 124/60; PULSE 96; RESP 23; TEMP 36.7; O2SAT 98
--- NOTE | 2020-07-06 15:05 | PM.PNNEP ---
Progress Note: A&P Assessment and Plan (1) CELSO (acute kidney injury): Code(s): N17.9 - Acute kidney failure, unspecified Status: Acute Assessment and Plan: resolved etiology not clear - overdiuresis - relative hypotension - infection(?) - antibiotics (acute vs chronic interstitial nephritis?) - third spacing from volume overload resulting in pre-renal physiology - something else? only real intervention to date was holding IV lasix as well as lisinopril and placing holding parameters on BP medications renal ultrasound normal urine studies suggestive of pre-renal azotemia despite outward signs of volume overload - started on IV bumex (in addition to metolazone which he was already taking/on) - this may be a situation where we have to accept a higher creatinine to achieve some degree of euvolemia... follow trend of repeat labs and UOP add acetazolamide due to rising CO2 levels (total of 3 doses) - suspect contraction alkalosis - will cut back on metolazone dosage (2) Scrotal swelling: Code(s): N50.89 - Other specified disorders of the male genital organs Status: Acute Assessment and Plan: more edema than infection per Urology scrotal support on bumex and metolazone - cut back on dosing (3) Cellulitis of scrotum: Code(s): N49.2 - Inflammatory disorders of scrotum Status: Acute Assessment and Plan: less likely per Urology de-escalte antibiotics? (4) Hypertension: Code(s): I10 - Essential (primary) hypertension Status: Acute Assessment and Plan: BP has been running on the lower side recently - lower BP contributing to #1(?) BP medication with parameters ordered follow trend of hemodynamics (5) Diabetes: Code(s): E11.9 - Type 2 diabetes mellitus without complications Status: Chronic Assessment and Plan: follow accuchecks on SSI Discussed with Dr. Camp. Will continue to follow. Subjective Date/time seen: 07/06/20 15:05 Appears to be doing reasonably well; swellling & edema have greatly improved and kidney function tolerating diuretic therapy; remains hemodynamically stable. Exam Narrative: Exam Narrative: General: Large male in NAD Heart: normal S1 and S2; no rub Lungs: clear to auscultation Abdomen: soft, nontender, nondistended, positive bowel sounds Extremities: no cyanosis or clubbing; 2+ edema Skin: chronic edematous changes present Objective Data Vital Signs Vital Signs: Vital Signs Temp Pulse Resp BP Pulse Ox 07/06/20 08:49 80 07/06/20 06:00 36.1 C L 83 18 139/71 95 07/05/20 22:00 36.1 C L 83 16 112/67 99 07/05/20 21:06 82 Intake/Output Intake/Output: Intake & Output 07/03/20 07/04/20 07/05/20 07/06/20 23:59 23:59 23:59 23:59 Intake Total 2440 1120 2200 720 Output Total 500 3300 Balance 1940 -2180 2200 720 Meds/Results Medications: Active Medications Generic Name Dose Route Start Last Admin Trade Name Freq PRN Reason Stop Dose Admin Hydrocodone Bitart/Acetaminophen 1 tab 06/30/20 20:23 07/06/20 05:47 [place] 10-325 Mg PO 1 tab Q4H PRN Administration Pain Rated 7-10 Acetazolamide 250 mg 07/06/20 17:00 Diamox Tab PO BID ADALBERTO Aspirin 81 mg 06/26/20 09:00 07/06/20 08:48 Aspirin Ec PO 81 mg DAILY ADALBERTO Administration Atorvastatin Calcium 80 mg 06/26/20 18:00 07/05/20 17:49 Lipitor PO 80 mg QPM ADALBERTO Administration Bumetanide 1 mg 07/05/20 17:00 07/06/20 08:52 Bumex Po PO 1 mg BID ADALBERTO Administration Calcium Carbonate 200 mg 06/25/20 20:47 06/30/20 03:35 Tums PO 200 mg Q6H PRN Administration Indigestion Gabapentin 800 mg 06/26/20 09:00 07/06/20 08:49 Neurontin PO 800 mg BID ADALBERTO Administration Insulin Human Regular 230 - 260 each 06/26/20 08:00 07/06/20 12:41 Home Medicat
[2020-07-06 16:39] LABS: Glucose Point of Care 144 (65-105)
[2020-07-06] MEDS: ATORVASTATIN 40 MG TABLET 80 MG PO (17:06)
[2020-07-06] MEDS: acetaZOLAMIDE TAB 250 MG TABLET PO (17:07)
[2020-07-06 20:01] VITALS: BP 121/67; PULSE 85; RESP 18; TEMP 37.6; O2SAT 98
[2020-07-06 20:04] VITALS: PULSE 85
[2020-07-06 21:23] LABS: Glucose Point of Care 184 (65-105)
[2020-07-07 05:03] VITALS: BP 126/67; PULSE 73; RESP 16; TEMP 37.1; O2SAT 96
[2020-07-07 06:20] LABS: Estimated CRCL calculation 97 ml/min; Estimated Glomerular Filt Rate > 60
[2020-07-07 06:26] LABS: Albumin Level 4.2 g/dL (3.5-5.1); Anion Gap 7 mmol/L (8-16); Blood Urea Nitrogen 33 mg/dL (9-20); Calcium 9.4 mg/dL (8.4-10.2); Carbon Dioxide 37 mmol/L (22-30); Chloride 89 mmol/L (98-107); Estimated CRCL calculation 97 ml/min; Estimated Glomerular Filt Rate > 60; Glucose 78 mg/dL (75-110); Phosphorus 4.8 mg/dL (2.5-4.5); Potassium 2.8 mmol/L (3.4-5.0); Sodium 133 mmol/L (137-145)
[2020-07-07] MEDS: POTASSIUM CHLORIDE 20 MEQ TABLET 40 MEQ PO ×2 (08:24→17:31)
[2020-07-07] MEDS: GABAPENTIN 400 MG CAPSULE 800 MG PO ×2 (08:28→17:32)
[2020-07-07] MEDS: acetaZOLAMIDE TAB 250 MG TABLET PO ×2 (08:28→17:31)
[2020-07-07] MEDS: ASPIRIN 81 MG ENTERIC TABLET PO (08:28)
[2020-07-07] MEDS: BUMETANIDE 1 MG TABLET PO ×2 (08:28→17:32)
[2020-07-07] MEDS: SERTRALINE HCL 50 MG TABLET 100 MG PO (08:29)
[2020-07-07] MEDS: ISOSORBIDE MONONITRATE 30 MG TAB.ER.24H PO (08:29)
[2020-07-07] MEDS: TICAGRELOR 90 MG TABLET PO (08:29)
[2020-07-07] MEDS: MICONAZOLE NITRATE 2% CREAM 30 GM TUBE 1 APPLIC TOPICAL (08:29)
[2020-07-07 08:55] LABS: Glucose Point of Care 93 (65-105)
[2020-07-07 09:00] LABS: Glucose Point of Care 49 (65-105)
--- NOTE | 2020-07-07 09:00 | P.PNNP_ITS ---
Progress Note: A&P Assessment and Plan (1) CELSO (acute kidney injury): Code(s): N17.9 - Acute kidney failure, unspecified Status: Acute Assessment and Plan: * resolved * etiology not clear - overdiuresis - relative hypotension - infection(?) - antibiotics (acute vs chronic interstitial nephritis?) - third spacing from volume overload resulting in pre-renal physiology - ibuprofen? He Has taken this in the past. * only real intervention to date was holding IV lasix as well as lisinopril and placing holding parameters on BP medications * renal ultrasound normal * urine studies suggestive of pre-renal azotemia * Venous Doppler is negative * consider evaluating for sleep apnea as an outpatient * getting Bumex , Diamox, and metolazone. * his potassium is very low. Will supplement this. He lost his IV so we will give it to him p.o. and repeat the labs later. I will give him spironolactone as well. * (2) Scrotal swelling: Code(s): N50.89 - Other specified disorders of the male genital organs Status: Acute Assessment and Plan: * more edema than infection per Urology * scrotal support * on bumex and metolazone, as well as Diamox (3) Cellulitis of scrotum: Code(s): N49.2 - Inflammatory disorders of scrotum Status: Acute Assessment and Plan: * less likely per Urology * de-escalte antibiotics? (4) Hypertension: Code(s): I10 - Essential (primary) hypertension Status: Acute Assessment and Plan: * BP has been running on the lower side recently - lower BP contributing to #1(?) * BP medication with parameters ordered * he may need a mildly higher level of blood pressure for a while (5) Diabetes: Code(s): E11.9 - Type 2 diabetes mellitus without complications Status: Chronic Assessment and Plan: * follow accuchecks * on SSI Subjective Date/time seen: 07/07/20 09:00 Interval history: Hong is feeling okay. He slept well. He denies shortness of breath. His swelling is better. Improve scrotal pain. Review of Systems Cardiovascular: Cardiovascular: Reports no additional cardiovascular complaints Respiratory: Respiratory: Reports no additional respiratory complaints Gastrointestinal: Gastrointestinal: Reports no additional gastrointestinal complaints Genitourinary: Genitourinary: Reports no additional male genitourinary complaints Exam Narrative: Exam Narrative: well developed well-nourished gentleman in no acute distress lungs are symmetric and clear heart regular rate and rhythm no rub or gallop abdomen bowel sounds positive soft nontender extremities no edema skin no rash Objective Data Vital Signs Vital Signs: Vital Signs - 24 hr 07/06/20 14:00 07/06/20 20:01 07/06/20 20:04 Temperature 36.7 C 37.6 C Pulse Rate 96 85 85 Respiratory Rate 23 H 18 Blood Pressure 124/60 121/67 Pulse Oximetry 98 98 07/07/20 05:03 Temperature 37.1 C Pulse Rate 73 Respiratory Rate 16 Blood Pressure 126/67 Pulse Oximetry 96 Intake/Output Intake/Output: Intake & Output 07/04/20 07/05/20 07/06/20 07/07/20 23:59 23:59 23:59 23:59 [place]
--- NOTE | 2020-07-07 09:00 | PM.PNNEP ---
Progress Note: A&P Assessment and Plan (1) CELSO (acute kidney injury): Code(s): N17.9 - Acute kidney failure, unspecified Status: Acute Assessment and Plan: resolved etiology not clear - overdiuresis - relative hypotension - infection(?) - antibiotics (acute vs chronic interstitial nephritis?) - third spacing from volume overload resulting in pre-renal physiology - ibuprofen? He Has taken this in the past. only real intervention to date was holding IV lasix as well as lisinopril and placing holding parameters on BP medications renal ultrasound normal urine studies suggestive of pre-renal azotemia Venous Doppler is negative consider evaluating for sleep apnea as an outpatient getting Bumex , Diamox, and metolazone. his potassium is very low. Will supplement this. He lost his IV so we will give it to him p.o. and repeat the labs later. I will give him spironolactone as well. (2) Scrotal swelling: Code(s): N50.89 - Other specified disorders of the male genital organs Status: Acute Assessment and Plan: more edema than infection per Urology scrotal support on bumex and metolazone, as well as Diamox (3) Cellulitis of scrotum: Code(s): N49.2 - Inflammatory disorders of scrotum Status: Acute Assessment and Plan: less likely per Urology de-escalte antibiotics? (4) Hypertension: Code(s): I10 - Essential (primary) hypertension Status: Acute Assessment and Plan: BP has been running on the lower side recently - lower BP contributing to #1(?) BP medication with parameters ordered he may need a mildly higher level of blood pressure for a while (5) Diabetes: Code(s): E11.9 - Type 2 diabetes mellitus without complications Status: Chronic Assessment and Plan: follow accuchecks on SSI Subjective Date/time seen: 07/07/20 09:00 Interval history: Hong is feeling okay. He slept well. He denies shortness of breath. His swelling is better. Improve scrotal pain. Review of Systems Cardiovascular: Cardiovascular: Reports no additional cardiovascular complaints Respiratory: Respiratory: Reports no additional respiratory complaints Gastrointestinal: Gastrointestinal: Reports no additional gastrointestinal complaints Genitourinary: Genitourinary: Reports no additional male genitourinary complaints Exam Narrative: Exam Narrative: well developed well-nourished gentleman in no acute distress lungs are symmetric and clear heart regular rate and rhythm no rub or gallop abdomen bowel sounds positive soft nontender extremities no edema skin no rash Objective Data Vital Signs Vital Signs: Vital Signs - 24 hr 07/06/20 14:00 07/06/20 20:01 07/06/20 20:04 Temperature 36.7 C 37.6 C Pulse Rate 96 85 85 Respiratory Rate 23 H 18 Blood Pressure 124/60 121/67 Pulse Oximetry 98 98 07/07/20 05:03 Temperature 37.1 C Pulse Rate 73 Respiratory Rate 16 Blood Pressure 126/67 Pulse Oximetry 96 Intake/Output Intake/Output: Intake & Output 07/04/20 07/05/20 07/06/20 07/07/20 23:59 23:59 23:59 23:59 Intake Total 1120 2200 960 200 Output Total 3300 Balance -2180 2200 960 200 Meds/Results Medications: Active Medications Generic Name Dose Route Start Last Admin Trade Name Freq PRN Reason Stop Dose Admin Hydrocodone Bitart/Acetaminophen 1 tab 06/30/20 20:23 07/07/20 06:07 [place] 10-325 Mg PO 1 tab Q4H PRN Administration Pain Rated 7-10 Acetazolamide 250 mg 07/06/20 17:00 07/07/20 08:28 Diamox Tab PO 07/07/20 17:01 250 mg BID ADALBERTO Administration Aspirin 81 mg 06/26/20 09:00 07/07/20 08:28 Aspirin Ec PO 81 mg DAILY ADALBERTO Administration Atorvastatin Calcium 80 mg 06/26/20 18:00 07/06/20 17:06 Lipitor PO 80 mg QPM ADALBERTO Administration Bumetanide 1 mg 07/05/20 17:00 07/07
[2020-07-07 11:00] VITALS: PULSE 80
[2020-07-07] MEDS: METOPROLOL SUCCINATE EXT REL 25 MG TABCR PO (11:00)
[2020-07-07] MEDS: SPIRONOLACTONE 25 MG TABLET PO (11:01)
[2020-07-07 11:40] LABS: Glucose Point of Care 121 (65-105)
[2020-07-07 13:51] VITALS: BP 120/70; PULSE 77; RESP 18; TEMP 36.4; O2SAT 99
--- NOTE | 2020-07-07 15:18 | PCPTNOTE ---
Patient declined PT. Patient states that he is transferring well and able to ambulate without assist.
[2020-07-07 16:39] LABS: Anion Gap 11 mmol/L (8-16); Blood Urea Nitrogen 32 mg/dL (9-20); Calcium 9.6 mg/dL (8.4-10.2); Carbon Dioxide 36 mmol/L (22-30); Chloride 87 mmol/L (98-107); Estimated CRCL calculation 97 ml/min; Estimated Glomerular Filt Rate > 60; Glucose 139 mg/dL (75-110); Sodium 134 mmol/L (137-145)
[2020-07-07] MEDS: ATORVASTATIN 40 MG TABLET 80 MG PO (17:41)
[2020-07-07 17:44] LABS: Glucose Point of Care 123 (65-105)
--- NOTE | 2020-08-06 08:53 | PM.DS ---
DS: Admitting Diagnosis Admitting Diagnosis Admitting Diagnosis: Scrotal cellulitis DS: Discharge Diagnosis Discharge Diagnosis (1) Cellulitis of scrotum: Code(s): N49.2 - Inflammatory disorders of scrotum Status: Acute Assessment and Plan: 07/06/20 13:56 Patient is 64-year-old male morbidly obese with BMI of 60 past medical history of type 1 diabetes on insulin pump, congestive heart failure S/P left shoulder surgery about a week ago and Pt has history of scrotal cellulitis, presented to emergency department with a complaint of redness swelling and tenderness along his scrotum patient had a ultrasound it showed 1. Severe scrotal edema. 2. Small bilateral hydrocele and normal testicle, patient is diagnosed with cellulitis and being treated with vancomycin and imipenem, with extensive edema along his scrotum and pelvis started the patient on IV Lasix 40mg daily to help in diureses as well as restrict fluid intake to 1800 cc per day, seen by urologist agree with the current management, on 06.26 Lasix 40 mg IV q daily there was no significant increasing urine output or decrease in edema, on 06/27 we increase Lasix 40 mg IV b.i.d. patient is also on metolazone, and there was increase in urine output and minimal decrease in edema and pain however today patient creatinine BUN is rising will go and stop IV Lasix, continue metolazone, we monitor patient overnight patient BUN and creatinine keep rising even though patient is off IV Lasix for 2 days, to further evaluate patient had a kidney ultrasound which is essentially normal, patient is seen nephrology and stop listening as well as Lasix, monitor, patient kidney function is improved and creatinine is close to normal, patient was started on Bumex 1 mg IV b.i.d., overall symptoms are today patient states feeling better the swelling along scrotum is also improving and is able to ambulate somewhat without much pain, on 07/05 discussed with school psychology specialist switched patient to oral Bumex and tolerating, he was on lisinopril 20 mg q.day was hold because of low BP and elevated creatinine, his creatinine is improved his blood pressures rising and has a low potassium, will discuss with the school psychology specialist to restart lisinopril and further recommendation to follow, today is doing better and wants to go home, (2) Congestive heart failure: Qualifiers: Heart failure type: unspecified Heart failure chronicity: chronic Qualified Code(s): I50.9 - Heart failure, unspecified Code(s): I50.9 - Heart failure, unspecified Status: Chronic Assessment and Plan: Awaiting echo EF 65%, IV lasix and lisinopril on hold due to Creat elevation Pt is to continue on metoprolol and on Zaroxolyn. On iv bumex (3) Morbid obesity: Code(s): E66.01 - Morbid (severe) obesity due to excess calories Status: Acute Assessment and Plan: Patient's BMI is 60. (4) Essential (primary) hypertension: Code(s): I10 - Essential (primary) hypertension Status: Acute Assessment and Plan: Continue with metoprolol. (5) PERLITA on CPAP: Code(s): G47.33 - Obstructive sleep apnea (adult) (pediatric); Z99.89 - Dependence on other enabling machines and devices Status: Acute Assessment and Plan: Continue with CPAP machine (6) Type 2 diabetes mellitus without complication, with long-term current use of insulin: Code(s): E11.9 - Type 2 diabetes mellitus without complications; Z79.4 - sales engagement executive (current) use of insulin Status: Acute Assessment and Plan: On insulin pump (7) Hyperlipidemia: Code(s): E78.5 - Hyperlipidemia, unspecified Status: Chronic Assessment and Plan: Continue with atorvastatin (8) CAD (coronary artery disease): Code(s): I25.10 - Atherosclerotic heart disease of ken[place]ze coronary artery without angina pectoris Status: Chronic Assessment and Plan: patient is on Brili
== END 2020-07-07 19:29 | disposition home or self-care (01) | DRG 728 ==
LOC: ANHED 13:49 → ANH2MED 14:08
PROVIDERS: Family Medicine; Internal Medicine Nephrology; Nurse Practitioner; Physician Assistant; Admitting Provider Internal Medicine; Emergency Provider Emergency Medicine; PCP Family Medicine; Visit Provider Family Medicine
DX: N49.2 Inflammatory disorders of scrotum (principal); Z68.44 Body mass index [BMI] 60.0-69.9, adult; N17.9 Acute kidney failure, unspecified; E66.01 Morbid (severe) obesity due to excess calories; I50.9 Heart failure, unspecified; F41.8 Other specified anxiety disorders; I25.10 Atherosclerotic heart disease of native coronary artery without angina pectoris; I11.0 Hypertensive heart disease with heart failure; E11.9 Type 2 diabetes mellitus without complications; E78.5 Hyperlipidemia, unspecified; G47.33 Obstructive sleep apnea (adult) (pediatric); Z79.4 Long term (current) use of insulin
CPT/HCPCS: 36415; 76775; 76870; 80048; 80069; 80202; 81001; 81050; 82436; 82565; 82570; 82728; 82948; 83036; 83605; 83615; 83735; 83880; 84156; 84300; 84443; 85025; 85380; 85610; 85652; 85730; 85999; 86140; 87040; 87086; 93005; 93308; 93970; 93976; 96365; 97116; 97161; 97530; 99285; A9270; C8924; J0743; J1120; J1815; J1940; J2270; J3370; J7030; Q9957

== ENCOUNTER 2020-10-15 14:31 | Outpatient (CLI) | payer MEDICARE, SELFPAY ==
[2020-10-15 15:20] LABS: Hematocrit 40.8 % (42.0-52.0); Hemoglobin 13.4 g/dL (14.0-18.0); Mean Corpuscular HGB Conc 32.8 g/dl (32-36); Mean Corpuscular Hemoglobin 30.4 pg (26-34); Mean Corpuscular Volume 92.5 fl (80-100); Mean Platelet Volume 9.8 fl (7.4-10.4); Platelet Count Result 228 k/mm3 (150-375); Red Blood Count 4.41 M/mm3 (4.6-6.20); Red Cell Distribution Width 14.1 % (11.5-14.5); White Blood Count 15.2 K/mm3 (4.5-10.0)
[2020-10-15 15:34] LABS: Anion Gap 8 mmol/L (8-16); Blood Urea Nitrogen 34 mg/dL (9-20); Calcium 9.9 mg/dL (8.4-10.2); Carbon Dioxide 31 mmol/L (22-30); Chloride 99 mmol/L (98-107); Estimated Glomerular Filt Rate 56; Glucose 103 mg/dL (75-110); Potassium 4.4 mmol/L (3.4-5.0); Sodium 138 mmol/L (137-145)
[2020-10-15 16:03] LABS: Prostate Specific Antigen 0.7 ng/mL (< OR = 4.0)
== END 2020-10-15 14:32 | disposition home or self-care (01) ==
LOC: ANHLAB 14:31
PROVIDERS: PCP Family Medicine; Visit Provider Nurse Practitioner Family
DX: N39.0 Urinary tract infection, site not specified (principal); Z12.5 Encounter for screening for malignant neoplasm of prostate
CPT/HCPCS: 36415; 80048; 84153; 85027; G0103

== ENCOUNTER 2021-01-19 14:19 | Outpatient (CLI) | payer MEDICARE, SELFPAY | END 2021-01-19 14:20 | disposition home or self-care (01) | LOC: ANHCOVIDVC 14:19 | PROVIDERS: PCP Family Medicine | DX: Z23 Encounter for immunization (principal) | CPT/HCPCS: 0001A; 91300 ==

== ENCOUNTER 2021-02-09 14:38 | Outpatient (CLI) | payer MEDICARE, SELFPAY | END 2021-02-09 14:39 | disposition home or self-care (01) | LOC: ANHCOVIDVC 14:39 | PROVIDERS: PCP Family Medicine | DX: Z23 Encounter for immunization (principal) | CPT/HCPCS: 0002A; 91300 ==

== ENCOUNTER 2021-06-22 14:32 | Outpatient (CLI) | payer MEDICARE, SELFPAY ==
[2021-06-22 15:31] LABS: Basophils Absolute Auto 0.1 K/mm3 (0.0-0.1); Basophils Percent Auto 0.5 % (0.2-1.2); Eosinophils Absolute Auto 0.1 K/mm3 (0-0.3); Eosinophils Percent Auto 1.1 % (0-4.4); Hematocrit 38.6 % (42.0-52.0); Hemoglobin 12.6 g/dL (14.0-18.0); Immature Granulocyte Absolute 0.07 K/mm3 (0.00-0.031); Immature Granulocyte Percent A 0.5 % (0-0.5); Lymphocytes Absolute Auto 3.71 K/mm3 (0.9-3.2); Lymphocytes Percent Auto 28.3 % (18.3-44.2); Mean Corpuscular HGB Conc 32.6 g/dl (32-36); Mean Corpuscular Hemoglobin 29.5 pg (26-34); Mean Corpuscular Volume 90.4 fl (80-100); Mean Platelet Volume 10.5 fl (7.4-10.4); Monocytes Absolute Auto 0.9 K/mm3 (0.1-0.6); Neutrophils Absolute Auto 8.2 K/mm3 (1.3-6.7); Neutrophils Percent Auto 62.6 % (45.5-73.1); Platelet Count Result 204 k/mm3 (150-375); Red Blood Count 4.27 M/mm3 (4.6-6.20); Red Cell Distribution Width 12.8 % (11.5-14.5); White Blood Count 13.1 K/mm3 (4.5-10.0)
[2021-06-22 15:42] LABS: Alanine Aminotransferase 31 U/L (4-50); Albumin Level 4.1 g/dL (3.5-5.1); Alkaline Phosphatase 77 U/L (38-126); Anion Gap 7 mmol/L (8-16); Aspartate Amino Transferase 28 U/L (17-59); Bilirubin,Total 0.5 mg/dL (0.2-1.3); Blood Urea Nitrogen 22 mg/dL (9-20); Calcium 9.1 mg/dL (8.4-10.2); Carbon Dioxide 26 mmol/L (22-30); Chloride 104 mmol/L (98-107); Cholesterol 154 mg/dL (0-200); Estimated Glomerular Filt Rate > 60; Glucose 63 mg/dL (65-110); HDL Direct 26 mg/dL; Potassium 3.7 mmol/L (3.4-5.0); Sodium 137 mmol/L (137-145); Triglycerides 122 mg/dL (<150)
[2021-06-22 15:53] LABS: LDL Cholesterol Direct 103 mg/dL
[2021-06-22 15:59] LABS: Free T4 Free Thyroxine 0.86 ng/mL (0.78-2.19); Vitamin D 25 Hydroxy 31.2 ng/mL
[2021-06-22 16:49] LABS: Creatinine Urine 58.9 mg/dL
[2021-06-22 16:53] LABS: Microalbumin Urine Random 53.6 mg/L (0-16.7)
[2021-06-22 18:36] LABS: Iron 55 ug/dL (49-181)
[2021-06-22 19:23] LABS: Percent Iron Saturation 17 % (20-50)
[2021-06-22 21:41] LABS: Prostate Specific Antigen 1.7 ng/mL (< OR = 4.0)
[2021-06-22 21:50] LABS: Hemoglobin A1C 8.4 % (<5.7)
[2021-06-25 03:55] LABS: Insulin Level Total 70.5 uIU/mL (<=19.6); Thyroid Peroxidase Antibodies <1 IU/mL (<9)
[2021-06-27 07:20] LABS: Triiodothyronine T3 Free 2.5 pg/mL (2.3-4.2)
[2021-06-27 13:26] LABS: Testosterone Total 235 ng/dL (250-1100)
== END 2021-06-22 14:33 | disposition home or self-care (01) ==
PROVIDERS: PCP Family Medicine; Visit Provider Nurse Practitioner Family
DX: F32.9 Major depressive disorder, single episode, unspecified (principal); E11.65 Type 2 diabetes mellitus with hyperglycemia; E88.81 Metabolic syndrome and other insulin resistance; R53.83 Other fatigue; Z12.5 Encounter for screening for malignant neoplasm of prostate; E11.9 Type 2 diabetes mellitus without complications; I10 Essential (primary) hypertension; E55.9 Vitamin D deficiency, unspecified
CPT/HCPCS: 36415; 80053; 80061; 82043; 82306; 82607; 82746; 83036; 83525; 83540; 83550; 84153; 84402; 84403; 84439; 84443; 84481; 85025; 86376; G0103

== ENCOUNTER 2021-12-29 15:57 | Outpatient (CLI) | payer MEDICARE, SELFPAY ==
[2021-12-29 17:20] LABS: Hematocrit 44.7 % (42.0-52.0); Hemoglobin 14.8 g/dL (14.0-18.0); Mean Corpuscular HGB Conc 33.1 g/dl (32-36); Mean Corpuscular Hemoglobin 30.6 pg (26-34); Mean Corpuscular Volume 92.4 fl (80-100); Mean Platelet Volume 10.8 fl (7.4-10.4); Platelet Count Result 191 k/mm3 (150-375); Red Blood Count 4.84 M/mm3 (4.6-6.20); Red Cell Distribution Width 12.9 % (11.5-14.5); White Blood Count 12.5 K/mm3 (4.5-10.0)
[2021-12-29 17:50] LABS: Alanine Aminotransferase 18 U/L (4-50); Albumin Level 4.2 g/dL (3.5-5.1); Alkaline Phosphatase 97 U/L (38-126); Anion Gap 7 mmol/L (8-16); Aspartate Amino Transferase 19 U/L (17-59); Bilirubin,Total 0.8 mg/dL (0.2-1.3); Blood Urea Nitrogen 26 mg/dL (9-20); Calcium 8.8 mg/dL (8.4-10.2); Carbon Dioxide 27 mmol/L (22-30); Chloride 104 mmol/L (98-107); Cholesterol 163 mg/dL (0-200); Estimated Glomerular Filt Rate > 60; Glucose 177 mg/dL (65-110); HDL Direct 27 mg/dL; Potassium 3.9 mmol/L (3.4-5.0); Sodium 138 mmol/L (137-145); Triglycerides 113 mg/dL (<150)
[2021-12-29 18:01] LABS: LDL Cholesterol Direct 123 mg/dL
[2021-12-29 18:21] LABS: Prostate Specific Antigen 0.9 ng/mL (< OR = 4.0)
[2021-12-29 18:24] LABS: Iron 73 ug/dL (49-181)
[2021-12-29 18:33] LABS: Percent Iron Saturation 22 % (20-50)
[2021-12-29 18:44] LABS: Vitamin D 25 Hydroxy 17.9 ng/mL
[2021-12-29 18:56] LABS: Creatinine Urine 33.3 mg/dL
[2021-12-29 19:01] LABS: Microalbumin Urine Random 72.6 mg/L (0-16.7)
[2021-12-29 19:09] LABS: Free T4 Free Thyroxine 0.92 ng/mL (0.78-2.19); Hemoglobin A1C 9.4 % (<5.7)
== END 2021-12-29 15:58 | disposition home or self-care (01) ==
PROVIDERS: PCP Family Medicine; Referring Provider Internal Medicine Endocrinology, Diabetes & Metabolism; Visit Provider Family Medicine
DX: E55.9 Vitamin D deficiency, unspecified (principal); E61.1 Iron deficiency; Z12.5 Encounter for screening for malignant neoplasm of prostate; E11.65 Type 2 diabetes mellitus with hyperglycemia; E78.5 Hyperlipidemia, unspecified
CPT/HCPCS: 36415; 80053; 80061; 82043; 82306; 83036; 83540; 83550; 84153; 84439; 84443; 85027; G0103

== ENCOUNTER 2022-09-08 15:52 | Outpatient (CLI) | payer MEDICARE, OTHER, SELFPAY ==
[2022-09-08 17:21] LABS: Basophils Absolute Auto 0.1 K/mm3 (0.0-0.1); Basophils Percent Auto 0.5 % (0.2-1.2); Eosinophils Absolute Auto 0.1 K/mm3 (0-0.3); Eosinophils Percent Auto 1.3 % (0-4.4); Hematocrit 43.9 % (42.0-52.0); Hemoglobin 14.6 g/dL (14.0-18.0); Immature Granulocyte Absolute 0.06 K/mm3 (0.00-0.031); Immature Granulocyte Percent A 0.5 % (0-0.5); Lymphocytes Absolute Auto 2.74 K/mm3 (0.9-3.2); Mean Corpuscular HGB Conc 33.3 g/dl (32-36); Mean Corpuscular Hemoglobin 30.9 pg (26-34); Mean Corpuscular Volume 92.8 fl (80-100); Mean Platelet Volume 10.7 fl (7.4-10.4); Monocytes Absolute Auto 0.8 K/mm3 (0.1-0.6); Monocytes Percent Auto 7.4 % (2.6-8.5); Neutrophils Absolute Auto 7.2 K/mm3 (1.3-6.7); Neutrophils Percent Auto 65.3 % (45.5-73.1); Platelet Count Result 207 k/mm3 (150-375); Red Blood Count 4.73 M/mm3 (4.6-6.20); Red Cell Distribution Width 12.7 % (11.5-14.5)
[2022-09-08 18:27] LABS: Alanine Aminotransferase 25 U/L (6-50); Albumin Level 4.4 g/dL (3.5-5.1); Alkaline Phosphatase 104 U/L (38-126); Anion Gap 14 mmol/L (8-16); Aspartate Amino Transferase 19 U/L (17-59); Blood Urea Nitrogen 24 mg/dL (9-20); Calcium 8.8 mg/dL (8.4-10.2); Carbon Dioxide 27 mmol/L (22-30); Chloride 97 mmol/L (98-107); Cholesterol 188 mg/dL (0-200); Estimated Glomerular Filt Rate 55; Glucose 301 mg/dL (65-110); HDL Direct 29 mg/dL; Potassium 4.1 mmol/L (3.4-5.0); Sodium 138 mmol/L (137-145); Triglycerides 164 mg/dL (<150)
[2022-09-08 18:38] LABS: LDL Cholesterol Direct 149 mg/dL
[2022-09-08 18:44] LABS: Free T4 Free Thyroxine 0.98 ng/mL (0.78-2.19); Vitamin D 25 Hydroxy 20.3 ng/mL
[2022-09-08 19:19] LABS: Hemoglobin A1C 9.6 % (<5.7)
== END 2022-09-08 15:53 | disposition home or self-care (01) ==
PROVIDERS: PCP Family Medicine; Referring Provider Nurse Practitioner; Visit Provider Family Medicine
DX: E11.65 Type 2 diabetes mellitus with hyperglycemia (principal); E55.9 Vitamin D deficiency, unspecified; D72.829 Elevated white blood cell count, unspecified; E78.5 Hyperlipidemia, unspecified
CPT/HCPCS: 36415; 80053; 80061; 82306; 83036; 84439; 84443; 85025

== ENCOUNTER 2022-10-20 11:17 | Outpatient (CLI) | payer MEDICARE, OTHER, SELFPAY ==
[2022-10-20 11:49] LABS: Basophils Absolute Auto 0.1 K/mm3 (0.0-0.1); Basophils Percent Auto 0.6 % (0.2-1.2); Eosinophils Absolute Auto 0.2 K/mm3 (0-0.3); Eosinophils Percent Auto 2.1 % (0-4.4); Hemoglobin 14.3 g/dL (14.0-18.0); Immature Granulocyte Absolute 0.07 K/mm3 (0.00-0.031); Immature Granulocyte Percent A 0.7 % (0-0.5); Lymphocytes Absolute Auto 3.05 K/mm3 (0.9-3.2); Lymphocytes Percent Auto 29.2 % (18.3-44.2); Mean Corpuscular HGB Conc 32.5 g/dl (32-36); Mean Corpuscular Hemoglobin 30.5 pg (26-34); Mean Corpuscular Volume 93.8 fl (80-100); Monocytes Absolute Auto 0.9 K/mm3 (0.1-0.6); Monocytes Percent Auto 8.8 % (2.6-8.5); Neutrophils Absolute Auto 6.1 K/mm3 (1.3-6.7); Neutrophils Percent Auto 58.6 % (45.5-73.1); Platelet Count Result 194 k/mm3 (150-375); Red Blood Count 4.69 M/mm3 (4.6-6.20); Red Cell Distribution Width 12.8 % (11.5-14.5); White Blood Count 10.5 K/mm3 (4.5-10.0)
[2022-10-20 12:00] LABS: Anion Gap 8 mmol/L (8-16); Blood Urea Nitrogen 31 mg/dL (9-20); Calcium 9.2 mg/dL (8.4-10.2); Carbon Dioxide 25 mmol/L (22-30); Chloride 108 mmol/L (98-107); Estimated Glomerular Filt Rate 51; Glucose 98 mg/dL (65-110); Potassium 4.3 mmol/L (3.4-5.0); Sodium 141 mmol/L (137-145)
== END 2022-10-20 11:18 | disposition home or self-care (01) ==
PROVIDERS: PCP Family Medicine; Visit Provider Nurse Practitioner Family
DX: R94.4 Abnormal results of kidney function studies (principal); R89.9 Unspecified abnormal finding in specimens from other organs, systems and tissues; E11.65 Type 2 diabetes mellitus with hyperglycemia; E78.5 Hyperlipidemia, unspecified; E55.9 Vitamin D deficiency, unspecified
CPT/HCPCS: 36415; 80048; 85025

== ENCOUNTER 2023-02-08 10:24 | Emergency (ER) | payer MEDICARE, OTHER, SELFPAY ==
--- NOTE | ~2023-02-08 | CT_ITS ---
EXAMINATION: CT abdomen pelvis wo con DATE: 02/08/2023 16:37 INDICATION: Abdominal distention. Incontinence. Body aches started 5 days ago. TECHNIQUE: Computed tomography (CT) of the abdomen and pelvis was performed without intravenous contr ast. Automated exposure control and iterative reconstruction technique were employed. Exam dose: 165 0.09 mGy-cm total exam DLP. COMPARISON: 01/31/2020 CT abdomen pelvis FINDINGS: There is minimal discoid atelectasis at the lung bases. No pericardial or pleural effusion. 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 Small sliding hiatal hernia. The liver, gallbladder, bile ducts, spleen, pancreas, pancreatic duct and adrenal glands are unremark able. There is nonspecific bilateral perinephric stranding. No renal mass lesion is evident on this limited noncontrast examination. No urinary tract calculus or hydroureteronephrosis. Moderate prostate enlar gement. Normal caliber of the abdominal aorta. No intraperitoneal or retroperitoneal or pelvic mass lesion or adenopathy or ascites. Diverticulosis of the colon; no CT evidence of diverticulitis. No evidence of appendicitis. No bowel obstruction, pneumatosis or intraperitoneal free air is detected. There is question of some soft tissue thickening in the mid sigmoid colon area which may be stool. If the patient has not had recent: Evaluation, barium enema or colonoscopy would be recommended to more definitively clear the colon of any possible mass lesion. There is morbid obesity. Diffuse idiopathic skeletal hyperostosis of the thoracic spine. Mild degenerative change of the lumba r spine. No suspicious osteolytic or osteoblastic lesions are noted. Small fat-containing umbilical hernia. IMPRESSION: Morbid obesity; no ascites or bowel obstruction Due to fecal material in the colon, colon mass cannot be definitively excluded based on this examinat ion. Recommend the patient have barium enema or colonoscopy if not done recently. Diverticulosis of the colon; no CT evidence of diverticulitis Reviewed, dictated and finalized at [facility]. Reviewed, dictated and finalized at location [facility]. IMPRESSION: Morbid obesity; no ascites or bowel obstruction Due to fecal material in the colon, colon mass cannot be definitively excluded based on this examination. Recommend the patient have barium enema or colonosco py if not done recently. Diverticulosis of the colon; no CT evidence of diverticulitis
--- NOTE | ~2023-02-08 | XR_ITS ---
EXAMINATION: XR chest 2V DATE: 02/08/2023 11:21 INDICATION: Shortness of breath. TECHNIQUE: Frontal and lateral views of the chest were obtained. COMPARISON: Chest 2 views 06/23/2012, CT abdomen and pelvis 01/31/2020 FINDINGS: There is no pneumonia, pleural effusion, or pneumothorax. The heart size is normal. There i s a left shoulder arthroplasty. IMPRESSION: 1. No acute cardiopulmonary disease. Reviewed, dictated and finalized at location [facility].
--- NOTE | 2023-02-08 10:34 | ECG_ITS ---
Measurements Intervals [place] Rate: 103 P: 56 OR: 174 QRS: 7 QRSD: 85 T: 59 QT: 350 QTc: 459 Interpretive Statements SINUS TACHYCARDIA LOW QRS VOLTAGE IN PRECORDIAL LEADS [QRS DEFLECTION < 1.0 mV IN CHEST LEADS] ABNORMAL RHYTHM ECG COMPARED TO ECG 06/25/2020 10:19:03 SINUS TACHYCARDIA NOW PRESENT Electronically Signed On 02-08-2023 16:06:39 CDT by Jb Beck M.D.
[2023-02-08 10:41] VITALS: BP 155/83; PULSE 108; RESP 22; TEMP 37.7; O2SAT 95
--- NOTE | 2023-02-08 14:06 | ED.SOB ---
HPI - SOB/Dyspnea General Chief Complaint: Shortness of Breath/Dyspnea Stated Complaint: shortness of breath and dizziness Time Seen by Provider: 02/08/23 14:02 History of Present Illness HPI Narrative: Pt presents with progressively worsening SOB over the last 5 days. Pt says his abdomen and legs are swollen. Pt has some history of LE edema but not abdominal swelling or ascites. Pt denies fever or CP. Pt has not reported history of CHF or COPD but has used lasix before for LE edema. Pt has DM. Related Data Home Medications Medication Instructions Recorded Confirmed aspirin 81 mg tablet,delayed 81 mg PO DAILY 01/31/20 12/09/22 release (Adult Low Dose Aspirin) ticagrelor 90 mg tablet (Brilinta) 90 mg PO Q12H 01/31/20 12/09/22 blood sugar diagnostic (Prodigy No #10 ea 02/26/20 12/09/22 Coding strips) blood-glucose meter,continuous #1 ea 02/26/20 12/09/22 (Dexcom G6 Horse Show Judge) gabapentin 800 mg tablet 800 mg PO BID 06/25/20 12/09/22 Allergies Allergy/AdvReac Type Severity Reaction Status Date / Time atorvastatin AdvReac Intermediate myalgia Verified 02/08/23 10:25 Review of Systems Review of Systems: All systems reviewed & are unremarkable except as noted in HPI and below PMFSH Past Medical History Medical History Abdominal distention ASHD (arteriosclerotic heart disease) BMI 50.0-59.9, adult BMI 60.0-69.9, adult CAD (coronary artery disease) Congestive heart failure Depression Depression with anxiety Elevated white blood cell count Essential (primary) hypertension Hyperlipidemia Insomnia Leg edema Morbid (severe) obesity due to excess calories Obesity, morbid, BMI 50 or higher PERLITA on CPAP Polyneuropathy, unspecified Pure hypercholesterolemia Screening for prostate cancer Type 2 diabetes mellitus without complication, with long-term current use of insulin Umbilical hernia Surgical History Surgical History H/O heart artery stent 2 in 2018 and 2 in 2019. H/O skin graft left ankle History of left shoulder replacement 1 week ago History of removal of pigmented skin lesion eyelids S/P tonsillectomy and adenoidectomy Status post medial meniscus repair of left knee Family History Family History Father Family history of malignant neoplasm Leukemia Mother Family history of kidney disease Kidney failure Sibling Acute myocardial infarction Alcohol abuse Lung cancer Other Cerebrovascular accident Diabetes mellitus Family history of arthritis Family history of coronary artery disease Family history of elevated blood lipids Family history of glaucoma Family history of hypercholesterolemia Family history of obesity Hypertension Social History Social History Smoking status: Former smoker Tobacco type: cigars Second hand tobacco smoke exposure: Yes Alcohol intake: current Substance use: current Substance use type: marijuana Lack of Transportation: No Lack of Food: Never True Current Housing: I Have Housing Concerned About Future Housing: No Difficulty Paying Gas/Electric Bills: No Difficulty Paying for Meds: No Currently Unemployed: No Education: High School Diploma/GED Difficulty w/ Childcare or Family Care: No Living arrangements: with family Occupation/Education: retired 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
[2023-02-08 15:38] LABS: Basophils Absolute Auto 0.1 K/mm3 (0.0-0.1); Basophils Percent Auto 0.5 % (0.2-1.2); Eosinophils Percent Auto 0.2 % (0-4.4); Hematocrit 42.5 % (42.0-52.0); Hemoglobin 14.1 g/dL (14.0-18.0); Immature Granulocyte Absolute 0.28 K/mm3 (0.00-0.031); Immature Granulocyte Percent A 2.5 % (0-0.5); Lymphocytes Absolute Auto 1.01 K/mm3 (0.9-3.2); Lymphocytes Percent Auto 9.2 % (18.3-44.2); Mean Corpuscular HGB Conc 33.2 g/dl (32-36); Mean Corpuscular Hemoglobin 30.7 pg (26-34); Mean Corpuscular Volume 92.6 fl (80-100); Mean Platelet Volume 9.3 fl (7.4-10.4); Monocytes Absolute Auto 0.8 K/mm3 (0.1-0.6); Monocytes Percent Auto 6.9 % (2.6-8.5); Neutrophils Absolute Auto 8.9 K/mm3 (1.3-6.7); Neutrophils Percent Auto 80.7 % (45.5-73.1); Platelet Count Result 169 k/mm3 (150-375); Red Blood Count 4.59 M/mm3 (4.6-6.20); Red Cell Distribution Width 13.2 % (11.5-14.5)
[2023-02-08 15:49] LABS: Alanine Aminotransferase 24 U/L (6-50); Albumin Level 3.9 g/dL (3.5-5.1); Alkaline Phosphatase 110 U/L (38-126); Anion Gap 10 mmol/L (8-16); Aspartate Amino Transferase 25 U/L (17-59); Bilirubin,Total 1.1 mg/dL (0.2-1.3); Blood Urea Nitrogen 19 mg/dL (9-20); Calcium 8.2 mg/dL (8.4-10.2); Carbon Dioxide 24 mmol/L (22-30); Chloride 98 mmol/L (98-107); Estimated CRCL calculation 88 ml/min; Estimated Glomerular Filt Rate > 60; Glucose 357 mg/dL (65-110); Potassium 3.7 mmol/L (3.4-5.0); Sodium 132 mmol/L (137-145)
[2023-02-08 15:57] LABS: Appearance Urine Cloudy (Clear); Bacteria Urine 1+ /hpf; Bilirubin Urine Negative (Negative); Blood Urine 3+ (Negative); Color Urine Yellow (Yellow); Glucose Urine UA 3+ mg/dL (Negative); Ketones Urine 1+ mg/dL (Negative); Leukocyte Esterase Ur 2+ LEU/UL (Negative); Need Manual Microscopic Reviewed; Nitrate Urine Negative (Negative); Protein Urine 3+ mg/dL (Negative); Specific Grav Ur 1.024 (1.001-1.035); Squamous Epithelial Cell Urine Occasional /hpf (Few); WBC Urine >100 /hpf; pH Urine 5.5 (5.0-9.0)
[2023-02-08 15:59] LABS: NT Pro B Type Natriuretic Pept 1930 pg/mL (19.9-100)
[2023-02-08 16:02] LABS: Add Urine Microscopic? YES
== END 2023-02-08 18:40 | disposition home or self-care (01) ==
PROVIDERS: General Practice; Emergency Provider Emergency Medicine; PCP Family Medicine
DX: R60.9 Edema, unspecified (principal); K59.00 Constipation, unspecified; I50.9 Heart failure, unspecified; I25.10 Atherosclerotic heart disease of native coronary artery without angina pectoris; I10 Essential (primary) hypertension; E11.42 Type 2 diabetes mellitus with diabetic polyneuropathy; E78.00 Pure hypercholesterolemia, unspecified; G47.33 Obstructive sleep apnea (adult) (pediatric); E66.01 Morbid (severe) obesity due to excess calories; Z68.44 Body mass index [BMI] 60.0-69.9, adult; F41.8 Other specified anxiety disorders; Z95.5 Presence of coronary angioplasty implant and graft; Z96.612 Presence of left artificial shoulder joint; Z87.891 Personal history of nicotine dependence; R00.0 Tachycardia, unspecified; K57.90 Diverticulosis of intestine, part unspecified, without perforation or abscess without bleeding; Z79.82 Long term (current) use of aspirin; Z79.4 Long term (current) use of insulin
CPT/HCPCS: 36415; 71046; 74176; 80053; 81001; 83880; 85025; 87086; 87147; 87181; 87186; 93005; 99284

== ENCOUNTER 2023-07-24 11:58 | Inpatient (IN) | payer MEDICARE, OTHER, SELFPAY ==
[2023-07-24] VITALS (17 sets, daily range): BP systolic 121–148; BP diastolic 76–93; PULSE 91–97; RESP 17–26; TEMP 35.9; O2SAT 96–100; BMI 50.5
--- NOTE | ~2023-07-24 | US_ITS ---
EXAMINATION: US venous doppler [facility] DATE: 07/25/2023 09:34 INDICATION: Bilateral lower limb swelling TECHNIQUE: Grayscale ultrasound images without and with compression and Doppler ultrasound images of the bilateral lower extremity veins were obtained. COMPARISON: None. FINDINGS: The visualized portions of right common femoral vein, profunda (deep) femoral vein, femoral vein, pop liteal vein, posterior tibial veins, peroneal veins, gastrocnemius vein and greater saphenous vein ou tflow are patent. The visualized portions of left common femoral vein, profunda femoral vein, femoral vein, popliteal v ein, posterior tibial veins, peroneal veins, gastrocnemius vein and greater saphenous vein outflow ar e patent. IMPRESSION: 1. No deep venous thrombosis in either lower limb. Reviewed, dictated and finalized at location A.
--- NOTE | ~2023-07-24 | XR_ITS ---
EXAMINATION: XR foot LT 2V DATE: 07/25/2023 14:11 INDICATION: Left heel wound. TECHNIQUE: 2 views of left calcaneus were obtained. COMPARISON: None. FINDINGS: Bone alignment is normal. No fracture. There is mild midfoot osteoarthritis. There is mild osteoarthritis of first metatarsophalangeal joint and some of the interphalangeal joints. There are e nthesophytes at the posterior and plantar aspects of calcaneal tuberosity. IMPRESSION: 1. No evidence of osteomyelitis. 2. Mild polyarticular osteoarthritis. Reviewed, dictated and finalized at location E.
--- NOTE | 2023-07-24 12:59 | ED.WEAKNESS ---
HPI - Weakness General Chief complaint: Weakness Stated complaint: weakness Time Seen by Provider: 07/24/23 12:57 Source: patient and EMS Mode of arrival: EMS Limitations: no limitations History of Present Illness HPI Narrative: 67 years old white male came from home by ambulance because of general weakness for the last 24 hours, and a fall while trying to get off the wheelchair to bed this morning. Patient lives alone, wheelchair-bound, able to move from wheelchair to bathroom without office clerk assistant, today he could not. History of paraplegia secondary to lower back surgery December 2022 at [facility]. He denies any fever, chills, nausea, vomiting, abdominal pain. Related Data Home Medications Medication Instructions Recorded Confirmed aspirin 81 mg tablet,delayed 81 mg PO DAILY 01/31/20 12/09/22 release (Adult Low Dose Aspirin) ticagrelor 90 mg tablet (Brilinta) 90 mg PO Q12H 01/31/20 12/09/22 blood sugar diagnostic (Prodigy No #10 ea 02/26/20 12/09/22 Coding strips) blood-glucose meter,continuous #1 ea 02/26/20 12/09/22 (Dexcom G6 Leather Finisher) gabapentin 800 mg tablet 800 mg PO BID 06/25/20 12/09/22 Allergies Allergy/AdvReac Type Severity Reaction Status Date / Time atorvastatin AdvReac Intermediate myalgia Verified 02/08/23 10:25 Review of Systems Review of Systems: All systems reviewed & are unremarkable except as noted in HPI and below PMFSH Past Medical History Medical History Abdominal distention ASHD (arteriosclerotic heart disease) BMI 50.0-59.9, adult BMI 60.0-69.9, adult CAD (coronary artery disease) Congestive heart failure Depression Depression with anxiety Elevated white blood cell count Essential (primary) hypertension Hyperlipidemia Insomnia Leg edema Morbid (severe) obesity due to excess calories Obesity, morbid, BMI 50 or higher PERLITA on CPAP Polyneuropathy, unspecified Pure hypercholesterolemia Screening for prostate cancer Type 2 diabetes mellitus without complication, with long-term current use of insulin Umbilical hernia Surgical History Surgical History H/O heart artery stent 2 in 2017 and 2 in 2018. H/O skin graft left ankle History of left shoulder replacement 1 week ago History of removal of pigmented skin lesion eyelids S/P tonsillectomy and adenoidectomy Status post medial meniscus repair of left knee Family History Family History Father Family history of malignant neoplasm Leukemia Mother Family history of kidney disease Kidney failure Sibling Acute myocardial infarction Alcohol abuse Lung cancer Other Cerebrovascular accident Diabetes mellitus Family history of arthritis Family history of coronary artery disease Family history of elevated blood lipids Family history of glaucoma Family history of hypercholesterolemia Family history of obesity Hypertension Social History Social History Smoking status: Former smoker Tobacco type: cigars Second hand tobacco smoke exposure: Yes Alcohol intake: current Substance use: current Substance use type: marijuana Lack of Transportation: No Lack of Food: Never True Current Housing: I Have Housing Concerned About Future Housing: No Difficulty Paying Gas/Electric Bills: No Difficulty Paying for Meds: No Currently Unemployed: No Education: High School Diploma/GED Difficulty w/ Childcare or Family Care: No Living arrangements: with family Occupation/Education: retired 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
--- NOTE | 2023-07-24 13:00 | ECG_ITS ---
Measurements Intervals [place] Rate: 87 P: SC: 0 QRS: -6 QRSD: 94 T: -16 QT: 390 QTc: 471 Interpretive Statements ATRIAL FLUTTER/TACHYCARDIA LOW QRS VOLTAGE IN PRECORDIAL LEADS CONSIDER ANTERIOR INFARCT, AGE INDETERMINATE CONSIDER INFERIOR INFARCT, AGE INDETERMINATE BORDERLINE ST-T WAVE ABNORMALITY- HIGH LATERAL LEADS BASELINE ARTIFACT- I, II, III, AVR, AVL, AVF, V1 ABNORMAL ECG COMPARED TO ECG 02/08/2023 10:38:38 ATRIAL FLUTTER/TACHYCARDIA NOW PRESENT ST (T WAVE) DEVIATION NOW PRESENT Electronically Signed On 07-24-2023 16:04:08 CDT by Mukesh Diallo D.O.
[2023-07-24] MEDS: SODIUM CHLORIDE 0.9% IV 1,000 ML 999 ML IV CONT (13:17)
[2023-07-24 13:39] LABS: Basophils Absolute Auto 0.1 K/mm3 (0.0-0.1); Basophils Percent Auto 0.7 % (0.2-1.2); Eosinophils Absolute Auto 0.4 K/mm3 (0-0.3); Eosinophils Percent Auto 3.4 % (0-4.4); Hematocrit 37.8 % (42.0-52.0); Hemoglobin 11.6 g/dL (14.0-18.0); Immature Granulocyte Absolute 0.06 K/mm3 (0.00-0.031); Immature Granulocyte Percent A 0.6 % (0-0.5); Lymphocytes Absolute Auto 1.83 K/mm3 (0.9-3.2); Lymphocytes Percent Auto 17.9 % (18.3-44.2); Mean Corpuscular HGB Conc 30.7 g/dl (32-36); Mean Corpuscular Hemoglobin 28.6 pg (26-34); Mean Corpuscular Volume 93.1 fl (80-100); Mean Platelet Volume 9.5 fl (7.4-10.4); Monocytes Absolute Auto 0.8 K/mm3 (0.1-0.6); Monocytes Percent Auto 7.6 % (2.6-8.5); Neutrophils Absolute Auto 7.1 K/mm3 (1.3-6.7); Neutrophils Percent Auto 69.8 % (45.5-73.1); Platelet Count Result 204 k/mm3 (150-375); Red Blood Count 4.06 M/mm3 (4.6-6.20); Red Cell Distribution Width 14.9 % (11.5-14.5); White Blood Count 10.2 K/mm3 (4.5-10.0)
[2023-07-24 14:02] LABS: Amorphous Sediment Urine Present; Appearance Urine Clear (Clear); Bacteria Urine 4+ /hpf; Bilirubin Urine Negative (Negative); Blood Urine 1+ (Negative); Color Urine Yellow (Yellow); Glucose Urine UA Negative (Negative); Hyaline Casts Urine Present /lpf; Ketones Urine Negative (Negative); Lactic Acid Reflex 1.3 mmol/L (0.7-2.0); Leukocyte Esterase Ur 3+ LEU/UL (Negative); Mucus Urine Present /lpf; Nitrate Urine Negative (Negative); Non Pathogenic Casts >20; Protein Urine 1+ mg/dL (Negative); Specific Grav Ur 1.011 (1.001-1.035); Squamous Epithelial Cell Urine None seen /hpf (Few); Urobilinogen Urine 0.2 mg/dL (<2.0); WBC Clumps Urine Present /HPF; WBC Urine >100 /hpf; pH Urine 5.5 (5.0-9.0)
[2023-07-24 14:10] LABS: Alanine Aminotransferase 21 U/L (6-50); Albumin Level 3.9 g/dL (3.5-5.1); Alkaline Phosphatase 106 U/L (38-126); Anion Gap 8 mmol/L (8-16); Aspartate Amino Transferase 27 U/L (17-59); Bilirubin,Total 0.8 mg/dL (0.2-1.3); Blood Urea Nitrogen 27 mg/dL (9-20); Calcium 9.2 mg/dL (8.4-10.2); Carbon Dioxide 27 mmol/L (22-30); Chloride 104 mmol/L (98-107); Estimated CRCL calculation 55 ml/min; Estimated Glomerular Filt Rate 41; Glucose 164 mg/dL (65-110); Potassium 3.8 mmol/L (3.4-5.0); Sodium 139 mmol/L (137-145)
[2023-07-24 14:16] LABS: Add Urine Microscopic? YES
[2023-07-24] MEDS: ONDANSETRON INJ 4 MG/2 ML VIAL IV PUSH (15:31)
[2023-07-24] MEDS: MORPHINE SULFATE (*CRX) 4 MG/ML INJ IV PUSH ×2 (15:31→22:06)
[2023-07-24] MEDS: SODIUM CHLORIDE 0.9% IV 1,000 ML 150 ML IV CONT (18:14)
--- NOTE | 2023-07-24 18:49 | ADMGEN ---
This patient, Hong Quinonez, was admitted to [facility] Room 304-01. Patient/family oriented to hospital policies and general routines including ID bracelet, bed and alarms, visiting hours, pain management, procedures, bathroom and other care routines, personal items, smoking policy, room service/diet, and visiting hours. Information on how to activate the Rapid Response Team has been discussed. Patient/Family are encouraged to report perceived risks to care and to ask questions if they do not understand what they are told or what they should do.
--- NOTE | 2023-07-24 20:06 | ADMGEN ---
This patient, Hong Quinonez, was admitted to 3 [facility] Room 304-01 @1900. Patient/family oriented to hospital policies and general routines including ID bracelet, bed and alarms, visiting hours, pain management, procedures, bathroom and other care routines, personal items, smoking policy, room service/diet, and visiting hours. Information on how to activate the Rapid Response Team has been discussed. Patient/Family are encouraged to report perceived risks to care and to ask questions if they do not understand what they are told or what they should do.
[2023-07-24] MEDS: ACETAMINOPHEN 325 MG TABLET 650 MG PO (20:16)
--- NOTE | 2023-07-24 23:47 | PC.NURSE ---
pt unsure of home medications. RN pulled medications from the external medication list that the pt had recently refilled.
--- NOTE | 2023-07-24 23:48 | PM.IMHP ---
H&P: HPI History of Present Illness Date/Time: 07/24/23 18:15 Chief Complaint: Fall. Narrative: This is a pleasant 67-year-old male with incomplete paraplegia following spinal surgery in December 2022, insulin-dependent diabetes, coronary artery disease, hypertension, sleep apnea, and other comorbidities who presented to the emergency department via EMS from home for evaluation after a fall. The patient provides the following history. He has been in rehab following his surgery in December however left there against medical advice a couple of weeks ago. He has been back in his home alone since that time; is apparently in the assisted. He is essentially wheelchair-bound but does stand and pivot to transfer. Today he was attempting to get in bed when he accidentally bumped into the controlled on his wheelchair which caused it to and he lost his balance and fell down onto his buttocks. He has some mild discomfort in the tailbone but denies injury in the fall and there was no head trauma or loss of consciousness. He was unable to get himself up and called EMS for lift assist. Due to ongoing weakness he was brought in for evaluation. He was afebrile on arrival with stable blood pressure. Labs were significant for WBC count of 10.2, hemoglobin 11.6,, lactic acid 1.3, creatinine 1.70. His urinalysis was positive for 3+ leukocyte esterase, greater than 100 wbc's, WBC clumps, 4+ bacteria, greater than 20 casts, and was negative for nitrates. I was asked to admit the patient in this setting for IV antibiotics as he has a history of MRSA UTI in February 2023. With further questioning the patient has not had any systemic symptoms and denies fever, chills, sweats, nausea, vomiting, abdominal pain, and worsening low back pain from normal. He had an indwelling Shoemaker catheter for quite some time but due to ongoing issues with urinary tract infections ?I have been on antibiotics almost all year? a suprapubic catheter was inserted couple of months ago at [facility]. Intermittently he will noticed that his urine is cloudy but again really does not have any symptoms with that. Review of Systems Review of Systems: Twelve systems were reviewed. No recent cold or flu symptoms. No sick contacts. No chest pain or shortness of breath. He denies orthopnea. He has chronic lower extremity edema however reports that his legs are more swollen than usual, left greater than right. He has a chronic wound on his left heel since this spring. Denies history of DVT and PE. Except as documented, all other systems were reviewed and are negative. [facility] Past Medical History Medical History (Updated 07/26/23 @ 16:00 by Radha Padilla PA-C) ASHD (arteriosclerotic heart disease) CAD (coronary artery disease) Congestive heart failure Depression with anxiety Essential (primary) hypertension Hyperlipidemia Insomnia Insulin dependent type 2 diabetes mellitus Morbid (severe) obesity due to excess calories PERLITA on CPAP Polyneuropathy, unspecified Pure hypercholesterolemia Type 2 diabetes mellitus without complication, with long-term current use of insulin Umbilical hernia Surgical History Surgical History H/O heart artery stent 2 in 2018 and 2 in 2019. H/O skin graft left ankle History of left shoulder replacement 1 week ago History of removal of pigmented skin lesion eyelids S/P tonsillectomy and adenoidectomy Status post medial meniscus repair of left knee Family History Family History Father Family history of malignant neoplasm Leukemia Mother Family history of kidney disease Kidney failure Sibling Acute myocardial infarction Alcohol abuse Lung cancer Other Cerebrovascular accident Diabetes mellitus Family history of arthritis Family history of coronary artery disease Family history of elevated blood lipids Family
[2023-07-25] MEDS: SODIUM CHLORIDE 0.9% IV 1,000 ML 150 ML IV CONT ×3 (01:33→21:17)
[2023-07-25 06:00] VITALS: BP 120/81; PULSE 96; RESP 18; TEMP 36; O2SAT 97
[2023-07-25 06:42] LABS: Basophils Absolute Auto 0.1 K/mm3 (0.0-0.1); Basophils Percent Auto 0.6 % (0.2-1.2); Eosinophils Absolute Auto 0.4 K/mm3 (0-0.3); Eosinophils Percent Auto 5.5 % (0-4.4); Hematocrit 34.5 % (42.0-52.0); Hemoglobin 10.7 g/dL (14.0-18.0); Immature Granulocyte Absolute 0.04 K/mm3 (0.00-0.031); Immature Granulocyte Percent A 0.5 % (0-0.5); Lymphocytes Absolute Auto 2.02 K/mm3 (0.9-3.2); Lymphocytes Percent Auto 26.2 % (18.3-44.2); Mean Corpuscular Hemoglobin 28.9 pg (26-34); Mean Corpuscular Volume 93.2 fl (80-100); Mean Platelet Volume 9.1 fl (7.4-10.4); Monocytes Absolute Auto 0.7 K/mm3 (0.1-0.6); Monocytes Percent Auto 8.6 % (2.6-8.5); Neutrophils Absolute Auto 4.5 K/mm3 (1.3-6.7); Neutrophils Percent Auto 58.6 % (45.5-73.1); Nucleated Red Blood Cells Perc 0.3 % (0.0-0.2); Platelet Count Result 157 k/mm3 (150-375); Red Cell Distribution Width 14.8 % (11.5-14.5); White Blood Count 7.7 K/mm3 (4.5-10.0)
[2023-07-25 06:57] LABS: Anion Gap 5 mmol/L (8-16); Blood Urea Nitrogen 20 mg/dL (9-20); Calcium 8.4 mg/dL (8.4-10.2); Carbon Dioxide 24 mmol/L (22-30); Chloride 109 mmol/L (98-107); Estimated CRCL calculation 69 ml/min; Estimated Glomerular Filt Rate 51; Glucose 120 mg/dL (65-110); Magnesium 2.1 mg/dL (1.6-2.3); Potassium 3.2 mmol/L (3.4-5.0); Sodium 138 mmol/L (137-145)
[2023-07-25 07:12] LABS: Procalcitonin 0.5 ng/mL
[2023-07-25 07:26] LABS: Hemoglobin A1C 6.7 % (<5.7)
[2023-07-25 07:52] LABS: Glucose Point of Care 114 mg/dl (65-105)
[2023-07-25] MEDS: POTASSIUM CHLORIDE 20 MEQ PACKET (FOR LIQUID) 40 MEQ PO (08:21)
[2023-07-25] MEDS: ENOXAPARIN 40 MG/0.4 ML SYRINGE SUB-Q (08:22)
[2023-07-25 11:20] LABS: Glucose Point of Care 173 mg/dl (65-105)
[2023-07-25 11:43] VITALS: BMI 51.6
--- NOTE | 2023-07-25 13:24 | PM.IMPN ---
Progress Note: A&P Assessment and Plan (1) Fall from ground level: Code(s): W18.30XA - Fall on same level, unspecified, initial encounter Status: Acute Assessment and Plan: Patient is generally weak and has only been at home by himself for 2 weeks, he may very well need to be placed in a [facility] facility. PT and OT consulted (2) Abnormal urinalysis: Code(s): R82.90 - Unspecified abnormal findings in urine Status: Acute Assessment and Plan: Urinalysis obtained on arrival was leukocyte esterase positive and showed 4+ bacteria and multiple wbc's and WBC clumps. He has a suprapubic catheter in place and will likely have chronic bacteriuria due to this. It is difficult to say whether not this represents an acute infection. Patient started on 1g of rocephin and vanc due to hx of MRSA Urine culture pending. (3) Diabetic foot ulcer: Code(s): E11.621 - Type 2 diabetes mellitus with foot ulcer; L97.509 - Non-pressure chronic ulcer of other part of unspecified foot with unspecified severity Status: Acute Assessment and Plan: Patient with left heel wound. That has been present for approximately 7 months. Patient states he does seek care for this wound. Will give foot x-ray due to concern for osteomyelitis. wound care consulted (4) Incomplete paraplegia: Code(s): G82.22 - Paraplegia, incomplete Status: Acute Assessment and Plan: Has been receiving rehab for this. (5) Insulin dependent type 2 diabetes mellitus: Code(s): E11.9 - Type 2 diabetes mellitus without complications; Z79.4 - [facility] (current) use of insulin Status: Acute Assessment and Plan: Continue basal insulin. Initiate sliding scale insulin, Accu-Cheks, and hypoglycemic protocol. Subjective Date/time seen: 07/25/23 13:24 Interval history: patient doing well today. Patient stated that he was at his house and had fallen and was unable to get up. EMS arrived at his house to help him get up and decided to have him looked over at the hospital. Patient was found with abnormal urinalysis but this could be due to his chronic suprapubic catheter. He also has a left diabetic foot wound that appears to be chronic. Patient states that he has had this foot wound for approximately 7 months. He has no feeling in his left leg from the hip down and has some feeling in his right leg. He denies any chest pain, shortness a breath, abdominal pain, nausea and vomiting. Exam Narrative: GENERAL: Comfortable, no acute distress , morbid obesity HENMT: moist mucous membranes EYES: EOM intact b/l NECK: no lymphadenopathy RESPIRATORY: clear to auscultation CARDIO: RRR GI: soft, nontender, bowel sounds present SKIN: no rashes EXTREMITIES: left heel wound Objective Data Vital Signs Vital Signs: Vital Signs - 24 hr 07/24/23 15:34 07/24/23 13:31 07/24/23 14:01 Temperature Pulse Rate 92 91 Respiratory Rate 18 23 H Blood Pressure 148/86 H 144/87 H 138/82 Pulse Oximetry 100 Oxygen Delivery 07/24/23 14:31 07/24/23 15:01 07/24/23 15:15 Temperature Pulse Rate 92 91 91 Respiratory Rate 21 H 18 18 Blood Pressure 132/83 135/78 135/83 Pulse Oximetry 99 99 Oxygen Delivery 07/24/23 15:30 07/24/23 15:46 07/24/23 16:00 Temperature Pulse Rate 91 97 97 Respiratory Rate 20 24 H 20 Blood Pressure 148/86 H 124/82 130/76 Pulse Oximetry 98 99 Oxygen Delivery 07/24/23 16:16 07/24/23 16:30 07/24/23 16:46 Temperature Pulse Rate 94 95 92 Respiratory Rate 17 22 H 26 H Blood Pressure 128/81 133/84 121/81 Pulse Oximetry 98 98 98 Oxygen Delivery 07/24/23 17:22 07/24/23 18:01 07/24/23 22:00 Temperature 96.7 F L Pulse Rate 92 92 94 Respiratory Rate 18 20 18 Blood Pressure 143/93 H 135/91 H 137/79 Pulse Oximetry 98 98 96 Oxygen Delivery 07/24/23 23:51 07/25/23 06:00 07/25/23 08:00 Temperature
[2023-07-25] MEDS: MORPHINE SULFATE (*CRX) 2 MG/ML INJ 1 MG IV PUSH ×2 (13:54→21:10)
[2023-07-25 14:00] VITALS: BP 124/69; PULSE 103; RESP 18; TEMP 36.2; O2SAT 98
--- NOTE | 2023-07-25 16:14 | WPDURCON ---
Assessment and Plan Assessment and plan (1) Urinary tract infection associated with catheterization of urinary tract: Qualifiers: Encounter type: subsequent encounter Indwelling urinary catheter type: cystostomy catheter Qualified Code(s): T83.510D - Infection and inflammatory reaction due to cystostomy catheter, subsequent encounter; N39.0 - Urinary tract infection, site not specified Code(s): T83.511A - Infection and inflammatory reaction due to indwelling urethral catheter, initial encounter; N39.0 - Urinary tract infection, site not specified Status: Acute Assessment and Plan: Continue with IV antibiotics, tailor to culture results. 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 will f/u with [facility] as planned in IR to have his SP tube changed on 08/08/23. It is not due to be changed at this time. The insertion site is clean and dry, no excessive redness, edema, tenderness or drainage noted on examination. Ok to replace dressing daily and PRN. No cellulitis appears to be present at SP tube site. No further evaluation needed from urology at this time. F/U with [facility] as planned. Urology Consult Note HPI Date Seen: 07/25/23 Time Seen: 09:30 Requesting Physician: Harrison Gu MD Primary Care Provider: Jaya Dailey MD Consult Narrative Reason for consult: UTI/SP Tube Narrative: Hong Quinonez is a 67 year old male who presented to the ER via EMS on 07/24/23 for generalized weakness and a fall from his wheelchair at home. He is a paraplegic secondary to back surgery at [facility] in 12/30. He had a suprapubic tube inserted recently at [place] d/t chronic UTI's from his chronic urethral catheter that was in place previously. He has a WBC of 7.7 down from 10.2, Creatinine of 1.40, down from 1.70. UA is suspicious of a UTI, but urine and blood cultures are pending at this time. CT on 02/08/23 shows BPH, but is otherwise urologically normal. HIS sp tube is draining in to gravity, cloudy, yellow urine and is sutured in place. He states it is changed monthly by IR at [place]. He is scheduled for a change on Aug.08 again. He is afebrile and had a dry dressing placed over his SP tube currently. Other than cloudy, urine he c/o burning pain at the site of the SP tube. Review of Systems Constitutional: Constitutional: Reports frequent falls and Reports lethargy Cardiovascular: Cardiovascular: Denies chest pain Respiratory: Respiratory: Reports no additional respiratory complaints Gastrointestinal: Gastrointestinal: Denies abdominal pain, Denies nausea and Denies vomiting Genitourinary: Genitourinary: Denies hematuria, Reports dysuria, Denies flank pain, Denies urinary frequency, Denies urinary hesitancy, Denies urinary incontinence and Denies urinary urgency [facility] Past Medical History Medical History Abdominal distention ASHD (arteriosclerotic heart disease) BMI 50.0-59.9, adult BMI 60.0-69.9, adult CAD (coronary artery disease) Congestive heart failure Depression Depression with anxiety Elevated white blood cell count Essential (primary) hypertension Hyperlipidemia Insomnia Insulin dependent type 2 diabetes mellitus Leg edema Morbid (severe) obesity due to excess calories Obesity, morbid, BMI 50 or higher PERLITA on CPAP Polyneuropathy, unspecified Pure hypercholesterolemia Screening for prostate cancer Type 2 diabetes mellitus without complication, with long-term current use of insulin Umbilical hernia Surgical History Surgical History H/O heart artery stent 2 in 2018 and 2 in 2019. H/O skin graft left ankle History of left shoulder replacement 1 week ago History of removal of pigmented skin lesion eyelids S/P tonsillectomy and adenoidectomy Status post
[2023-07-25 16:20] LABS: Glucose Point of Care 178 mg/dl (65-105)
[2023-07-25] MEDS: SOD HYPOCHLORITE 1/4 STRENGTH 473 ML 1 APPLIC TOPICAL ×2 (18:09→21:00)
[2023-07-25 22:00] VITALS: BP 95/45; PULSE 101; RESP 14; TEMP 36.8; O2SAT 97
[2023-07-25 23:10] LABS: Glucose Point of Care 193 mg/dl (65-105)
[2023-07-26] MEDS: HYDROcodone/acetaminophen (*CRX) 5-325 MG TABLET 1 TAB PO ×2 (00:36→22:12)
[2023-07-26] MEDS: MORPHINE SULFATE (*CRX) 2 MG/ML INJ 1 MG IV PUSH ×3 (02:35→20:49)
[2023-07-26] MEDS: SODIUM CHLORIDE 0.9% IV 1,000 ML 150 ML IV CONT (02:38)
[2023-07-26 06:00] VITALS: BP 120/73; PULSE 96; RESP 18; TEMP 37.2; O2SAT 94
[2023-07-26 06:37] LABS: Hematocrit 33.9 % (42.0-52.0); Hemoglobin 10.1 g/dL (14.0-18.0); Mean Corpuscular HGB Conc 29.8 g/dl (32-36); Mean Corpuscular Hemoglobin 29.1 pg (26-34); Mean Corpuscular Volume 97.7 fl (80-100); Mean Platelet Volume 9.8 fl (7.4-10.4); Platelet Count Result 153 k/mm3 (150-375); Red Blood Count 3.47 M/mm3 (4.6-6.20); Red Cell Distribution Width 14.8 % (11.5-14.5); White Blood Count 7.5 K/mm3 (4.5-10.0)
[2023-07-26 06:55] LABS: Alanine Aminotransferase 17 U/L (6-50); Anion Gap 8 mmol/L (8-16); Bilirubin,Total 0.6 mg/dL (0.2-1.3); Blood Urea Nitrogen 17 mg/dL (9-20); Calcium 7.9 mg/dL (8.4-10.2); Carbon Dioxide 21 mmol/L (22-30); Chloride 107 mmol/L (98-107); Estimated CRCL calculation 64 ml/min; Estimated Glomerular Filt Rate 47; Glucose 143 mg/dL (65-110); Sodium 136 mmol/L (137-145)
[2023-07-26 07:00] LABS: Albumin Level 2.8 g/dL (3.5-5.1); Alkaline Phosphatase 88 U/L (38-126); Aspartate Amino Transferase 19 U/L (17-59); Potassium 3.8 mmol/L (3.4-5.0)
[2023-07-26 07:52] LABS: Glucose Point of Care 161 mg/dl (65-105)
[2023-07-26] MEDS: ENOXAPARIN 40 MG/0.4 ML SYRINGE SUB-Q (09:37)
[2023-07-26 11:21] LABS: Glucose Point of Care 156 mg/dl (65-105)
--- NOTE | 2023-07-26 11:52 | PM.IMPN ---
Progress Note: A&P Assessment and Plan (1) Fall from ground level: Code(s): W18.30XA - Fall on same level, unspecified, initial encounter Status: Acute Assessment and Plan: Patient is generally weak and has only been at home by himself for 2 weeks, he may very well need to be placed in a shelter facility. PT and OT consulted (2) Abnormal urinalysis: Code(s): R82.90 - Unspecified abnormal findings in urine Status: Acute Assessment and Plan: Urinalysis obtained on arrival was leukocyte esterase positive and showed 4+ bacteria and multiple wbc's and WBC clumps. He has a suprapubic catheter in place and will likely have chronic bacteriuria due to this. It is difficult to say whether not this represents an acute infection. 07/26 antibiotics changed to vanc, Ancef and Flagyl due to diabetic foot wound. Urine culture with Gram-negative bacilli. (3) Diabetic foot ulcer: Code(s): E11.621 - Type 2 diabetes mellitus with foot ulcer; L97.509 - Non-pressure chronic ulcer of other part of unspecified foot with unspecified severity Status: Acute Assessment and Plan: Patient with left heel wound. That has been present for approximately 7 months. Patient states he does seek care for this wound. Foot x-ray negative for osteomyelitis. wound care consulted. 07/26 Redness and swelling over patient's left lower extremity. Change patient's antibiotics to vanc, Ancef and Flagyl. (4) Incomplete paraplegia: Code(s): G82.22 - Paraplegia, incomplete Status: Acute Assessment and Plan: Has been receiving rehab for this. (5) Insulin dependent type 2 diabetes mellitus: Code(s): E11.9 - Type 2 diabetes mellitus without complications; Z79.4 - [facility] (current) use of insulin Status: Acute Assessment and Plan: Continue basal insulin. Initiate sliding scale insulin, Accu-Cheks, and hypoglycemic protocol. Subjective Date/time seen: 07/26/23 11:52 Interval history: Patient complaining of left foot and lower extremity pain. He has had some swelling in this foot and ankle. It is warm to the touch, red and swollen. He denies any abdominal pain, nausea vomiting. He has not experienced any body aches, chills or fever. Antibiotics adjusted to cover for diabetic foot wound. Awaiting urine culture results. Exam Narrative: GENERAL: Comfortable, no acute distress , morbid obesity HENMT: moist mucous membranes EYES: EOM intact b/l NECK: no lymphadenopathy RESPIRATORY: clear to auscultation CARDIO: RRR GI: soft, nontender, bowel sounds present SKIN: no rashes EXTREMITIES: left heel wound; left ankle and skin redness and warmth to touch. Has bilateral lower extremity hemosiderin deposites. Objective Data Vital Signs Vital Signs: Vital Signs - 24 hr 07/25/23 14:00 07/25/23 22:00 07/26/23 06:00 Temperature 97.1 F L 98.3 F 99 F Pulse Rate 103 H 101 H 96 Respiratory Rate 18 14 18 Blood Pressure 124/69 95/45 L 120/73 Pulse Oximetry 98 97 94 Intake/Output Intake/Output: Intake & Output 07/23/23 07/24/23 07/25/23 07/26/23 23:59 23:59 23:59 23:59 Intake Total 1550 4456 1360 Output Total 2420 1475 Balance 1550 2036 -115 Meds/Results Medications: Active Medications Generic Name Dose Route Start Last Admin Trade Name Freq PRN Reason Stop Dose Admin Acetaminophen 650 mg 07/24/23 16:21 07/24/23 20:16 Acetaminophen 325 Mg Tablet PO 650 mg Q4H PRN Administration Mild Pain (1-3) or Fever Hydrocodone Bitart/Acetaminophen 1 tab 07/25/23 13:22 07/26/23 00:36 Hydrocodone/Acetaminophen (*Crx) 5-325 Mg Tablet PO 1 tab Q6H PRN Administration Pain Rated 4-6 Dextrose 12.5 gm 07/24/23 23:59 Dextrose 50% 25 Gm/50 Ml Syringe IV PUSH PRN PRN Hypoglycemia Protocol Enoxaparin Sodium 40 mg 07/25/23 09:00 07/26/23 09:37 Enoxaparin 40 Mg/
[2023-07-26] MEDS: metroNIDAZOLE 500 MG/ISO 100ML 500 MG/100 ML BAG 100 MG IVPB ×2 (12:08→20:48)
[2023-07-26 14:00] VITALS: BP 140/79; PULSE 50; RESP 18; TEMP 36.6; O2SAT 96
[2023-07-26 16:37] LABS: Glucose Point of Care 136 mg/dl (65-105)
[2023-07-26] MEDS: SOD HYPOCHLORITE 1/4 STRENGTH 473 ML 1 APPLIC TOPICAL ×2 (18:50→22:27)
[2023-07-26 20:00] LABS: Glucose Point of Care 154 mg/dl (65-105)
[2023-07-26 21:45] LABS: Vancomycin Trough 19.5 ug/mL (10.0-20.0)
[2023-07-26 22:00] VITALS: BP 154/81; PULSE 111; RESP 16; TEMP 37.4; O2SAT 97
[2023-07-26] MEDS: cefTRIAXone 2 GM/NS 100 ML 2 GM/100 ML BAG IVPB (22:13)
[2023-07-27] MEDS: SODIUM CHLORIDE 0.9% IV 1,000 ML 150 ML IV CONT (03:13)
[2023-07-27] MEDS: metroNIDAZOLE 500 MG/ISO 100ML 500 MG/100 ML BAG 100 MG IVPB (03:14)
[2023-07-27 04:57] VITALS: BP 153/81; PULSE 99; RESP 18; TEMP 36.2; O2SAT 96
[2023-07-27 07:09] LABS: Estimated CRCL calculation 69 ml/min; Estimated Glomerular Filt Rate 51
[2023-07-27 08:00] VITALS: BP 145/93; PULSE 111; RESP 16; TEMP 36.3; O2SAT 96
[2023-07-27 08:10] LABS: Glucose Point of Care 133 mg/dl (65-105)
[2023-07-27] MEDS: ENOXAPARIN 40 MG/0.4 ML SYRINGE SUB-Q (08:30)
[2023-07-27] MEDS: MORPHINE SULFATE (*CRX) 2 MG/ML INJ 1 MG IV PUSH (08:30)
[2023-07-27 11:56] LABS: Glucose Point of Care 166 mg/dl (65-105)
[2023-07-27] MEDS: SOD HYPOCHLORITE 1/4 STRENGTH 473 ML 1 APPLIC TOPICAL (12:05)
[2023-07-27] MEDS: SODIUM CHLORIDE 0.9% IV 1,000 ML 100 ML IV CONT (13:32)
[2023-07-27 14:00] VITALS: BP 134/80; PULSE 99; RESP 16; TEMP 36.3; O2SAT 96
--- NOTE | 2023-07-27 14:51 | PM.DS ---
DS: Admitting Diagnosis Discharge Date 07/27/23 1200 Admitting Diagnosis Urinary tract infection related to urinary catheter DS: Discharge Diagnosis Discharge Diagnosis (1) Fall from ground level: Code(s): W18.30XA - Fall on same level, unspecified, initial encounter Status: Acute (2) Abnormal urinalysis: Code(s): R82.90 - Unspecified abnormal findings in urine Status: Acute (3) Incomplete paraplegia: Code(s): G82.22 - Paraplegia, incomplete Status: Acute (4) Chronic anticoagulation: Code(s): Z79.01 - [facility] (current) use of anticoagulants Status: Acute (5) Insulin dependent type 2 diabetes mellitus: Code(s): E11.9 - Type 2 diabetes mellitus without complications; Z79.4 - [facility] (current) use of insulin Status: Acute Plan (1) Fall from ground level: ?Code(s): W18.30XA - Fall on same level, unspecified, initial encounter ?Status:?Acute ?Assessment and Plan: Patient is generally weak and has only been at home by himself for 2 weeks, he may very well need to be placed in a [facility] facility. PT and OT consulted (2) Abnormal urinalysis: ?Code(s): R82.90 - Unspecified abnormal findings in urine ?Status:?Acute ?Assessment and Plan: Urinalysis obtained on arrival was leukocyte esterase positive and showed 4+ bacteria and multiple wbc's and WBC clumps. He has a suprapubic catheter in place and will likely have chronic bacteriuria due to this. It is difficult to say whether not this represents an acute infection. 07/26 antibiotics changed to vanc, Ancef and Flagyl due to diabetic foot wound. Urine culture with Gram-negative bacilli. (3) Diabetic foot ulcer: ?Code(s): E11.621 - Type 2 diabetes mellitus with foot ulcer; L97.509 - Non-pressure chronic ulcer of other part of unspecified foot with unspecified severity ?Status:?Acute ?Assessment and Plan: Patient with left heel wound.? That has been present for approximately 7 months. Patient states he does seek care for this wound.? Foot x-ray negative for osteomyelitis. wound care consulted. 07/26 Redness and swelling over patient's left lower extremity. Change patient's antibiotics to vanc, Ancef and Flagyl. (4) Incomplete paraplegia: ?Code(s): G82.22 - Paraplegia, incomplete ?Status:?Acute ?Assessment and Plan: ? Has been receiving rehab for this. (5) Insulin dependent type 2 diabetes mellitus: ?Code(s): E11.9 - Type 2 diabetes mellitus without complications; Z79.4 - [employer]modal [employer] (current) use of insulin ?Status:?Acute ?Assessment and Plan: Continue basal insulin. Initiate sliding scale insulin, Accu-Cheks, and hypoglycemic protocol. DS: Summary Hospital Course Hospital Course: patient is 67-year-old male with a past medical history of paraplegia, diabetes, CAD, hypertension, sleep apnea who presented the ED with complaints of a fall. Patient was trying to get in bed when he actually had his wheelchair and he fell to the ground onto his buttocks. Upon arrival to the ED was noted to have a UA that did appear infectious along with an elevated creatinine. Patient has had multiple UTIs in the past which is related to his nephrostomy tube. Sensitivities did come back and patient was started on ceftriaxone. Urine culture did grow Enterobacter Colace complex. It was also noted the patient did have a left foot wound. Flagyl and vancomycin was added. Sensitivities did show the UTI to be sensitive to Bactrim. Augmentin was also added for further wound control in the left foot. Currently patient is doing well and he states he is ready to go home. He denies any current chest pain, shortness a breath, nausea, vomiting, diarrhea constipation. Did educate patient about proper medication management including taking his Bactrim with a full glass of water. Patient did verbalize understanding and denies any current chest vira
[2023-07-27 16:53] LABS: Glucose Point of Care 137 mg/dl (65-105)
[2023-07-27 17:00] VITALS: BP 133/52; PULSE 99; RESP 16; TEMP 36.9; O2SAT 100
== END 2023-07-27 18:00 | disposition home health service (06) | DRG 699 ==
LOC: ANHED 15:33 → ANH3MEDSUR 18:18
PROVIDERS: Internal Medicine Critical Care Medicine; Physician Assistant; Admitting Provider Internal Medicine; Emergency Provider Emergency Medicine; PCP Family Medicine; Visit Provider Nurse Practitioner
DX: T83.511A Infection and inflammatory reaction due to indwelling urethral catheter, initial encounter (principal); G82.22 Paraplegia, incomplete; Z68.43 Body mass index [BMI] 50.0-59.9, adult; N39.0 Urinary tract infection, site not specified; B96.89 Other specified bacterial agents as the cause of diseases classified elsewhere; E66.01 Morbid (severe) obesity due to excess calories; E11.621 Type 2 diabetes mellitus with foot ulcer; E78.00 Pure hypercholesterolemia, unspecified; E11.42 Type 2 diabetes mellitus with diabetic polyneuropathy; F41.8 Other specified anxiety disorders; G47.33 Obstructive sleep apnea (adult) (pediatric); I11.0 Hypertensive heart disease with heart failure; I50.9 Heart failure, unspecified; I25.10 Atherosclerotic heart disease of native coronary artery without angina pectoris; L97.529 Non-pressure chronic ulcer of other part of left foot with unspecified severity; N31.2 Flaccid neuropathic bladder, not elsewhere classified; W19.XXXA Unspecified fall, initial encounter; Z95.5 Presence of coronary angioplasty implant and graft; Z96.612 Presence of left artificial shoulder joint; Z87.891 Personal history of nicotine dependence; Z99.3 Dependence on wheelchair; Z79.82 Long term (current) use of aspirin; Z79.01 Long term (current) use of anticoagulants; Z79.4 Long term (current) use of insulin; Z99.89 Dependence on other enabling machines and devices; Z86.14 Personal history of Methicillin resistant Staphylococcus aureus infection; Z66 Do not resuscitate
CPT/HCPCS: 36415; 73620; 80048; 80053; 80202; 81001; 82565; 82948; 83036; 83605; 83735; 84145; 85025; 85027; 86140; 87040; 87077; 87086; 87088; 87186; 93005; 93970; 96365; 96375; 97110; 97161; 97166; 97530; 99285; A9270; J0696; J1650; J1836; J2270; J2405; J3370; J7030

== ENCOUNTER 2024-06-25 09:13 | Outpatient (CLI) | payer MEDICARE, OTHER, MEDICAID, SELFPAY ==
--- NOTE | ~2024-06-25 | XR_ITS ---
XR foot LT min 3V Ordering provider: Antolin Marie Jr., DPM History: . CHRONIC ULCER LEFT HEEL . Comparison: July 25, 2023 FINDINGS: BONES: No acute fracture or dislocation. Osteopenia of the bones in the area of the tarsal and metata rsal bones. Calcaneal spur. Ossification of the insertion of the tendo Achilles. JOINT SPACES: Narrowing of the intertarsal and tarsometatarsal joints. Osteoarthritic changes of the proximal and distal interphalangeal joints. No tarsal coalition. SOFT TISSUES: Soft tissue swelling over the dorsum of the foot. Highly suggestive ulceration pain the soft tissues in the area of the heel laterally. Clinical correlation advised. IMPRESSION: Osteopenia in the area of the tarsal and metatarsal bones which may be a osteomyelitis. Clinical cailin elation and follow-up advised. Reviewed, dictated and finalized at location A. IMPRESSION: Osteopenia in the area of the tarsal and metatarsal bones which may be a osteom yelitis. Clinical correlation and follow-up advised.
--- NOTE | ~2024-06-25 | MR_ITS ---
EXAMINATION: MR ankle LT wo con DATE: 06/25/2024 10:46 INDICATION: Crackles at the left heel TECHNIQUE: Magnetic resonance imaging (MRI) of the affected ankle was performed without intravenous c ontrast. Sequences included sagittal, coronal, and axial proton-density weighted fast spin echo witho ut and with fat saturation. COMPARISON: None. FINDINGS: Medial ankle ligaments: Thickening of the superficial and deep deltoid ligaments with loss of the normally sharp striated pat tern of the deep deltoid ligament. Small heterotopic ossicle along the deep deltoid ligament. Finding s consistent with scarring related to chronic ankle sprain. The spring ligament complex is normal. Lateral ankle ligaments: Thickening of the anterior and posterior inferior tibiofibular ligaments, also with small amount of h eterotopic ossification at the tibial insertions consistent with sequela of chronic high ankle sprain . Small hypertrophic osteophytes at the fibular origins of the otherwise normal-appearing anterior ta lofibular, calcaneofibular and posterior talofibular ligaments also likely sequela of chronic sprain. Tendons: Small enthesophytes at the calcaneal insertion of the otherwise normal Achilles tendon. The the peron eus longus tendon is normal. There is mild thickening and minimal increased signal of the peroneus lo ngus tendon at the level of the tip of the lateral malleolus consistent with mild tendinopathy withou t discrete tear. The tibialis anterior and extensor hallucis longus and extensor digitorum longus ten dons are normal. The tibialis posterior, flexor digitorum longus and flexor hallucis longus tendons a re normal. Plantar fascia: Moderate-sized plantar calcaneal spur. There is moderate thickening and mild increased signal the juan tral and lateral components of the plantar aponeurosis consistent with chronic enthesopathy. No assoc iated marrow or surrounding soft tissue edema to suggest acute plantar fasciitis. Bones/other: There is an ulceration with attenuation of the underlying subcutaneous fat at the plantar/lateral asp ect of the heel. The underlying marrow signal is normal with no evident cortical erosion, marrow radha a or loss of fat signal to suggest osteomyelitis. Bone alignment is normal. No fracture or pathologic marrow replacing process. Mild polyarticular osteoarthritis at the ankle and multiple joints in the mid and hindfoot. There are prominent diffuse fatty atrophy of the intrinsic musculature of the foot which could be seen with chronic peripheral neuropathy. Fluid: Physiologic amount fluid in the joint spaces and along the tendon sheath. No abnormal fluid collectio ns. IMPRESSION: 1. No evident osteomyelitis underlying a moderately deep ulceration at the posterolateral aspect of t he heel. 2. Stigmata of chronic medial and high lateral ankle sprains. 3. Moderate chronic plantar calcaneal enthesopathy and minimal distal Achilles enthesopathy. 4. Mild polyarticular osteoarthritis at the left ankle, mid and hindfoot. 5. Severe fatty atrophy of the intrinsic musculature of the foot suggesting chronic neuropathy such a s in the setting of diabetes. Reviewed, dictated and finalized at location A. IMPRESSION: 1. No evident osteomyelitis underlying a moderately deep ulceration at the post erolateral aspect of the heel. 2. Stigmata of chronic medial and high lateral ankle sprains. 3. Moderate chronic plantar calcaneal enthesopathy and minimal distal Achilles enthesopathy. 4. Mild polyarticular osteoarthritis at the left ankle, mid and hindfoot. 5. Severe fatty atrophy of the intrinsic musculature of the foot suggesting chr onic neuropathy such as in the setting of diabetes.
[2024-06-25 11:22] LABS: Hematocrit 43.6 % (42.0-52.0); Hemoglobin 13.9 g/dL (14.0-18.0); Mean Corpuscular HGB Conc 31.9 g/dl (32-36); Mean Corpuscular Hemoglobin 31.2 pg (26-34); Mean Corpuscular Volume 97.8 fl (80-100); Mean Platelet Volume 9.7 fl (7.4-10.4); Platelet Count Result 187 k/mm3 (150-375); Red Blood Count 4.46 M/mm3 (4.6-6.20); Red Cell Distribution Width 14.3 % (11.5-14.5); White Blood Count 8.3 K/mm3 (4.5-10.0)
[2024-06-25 12:22] LABS: Creatinine Urine 63.2 mg/dL
[2024-06-25 12:22] LABS: Free T4 Free Thyroxine 1.14 ng/mL (0.78-2.19)
[2024-06-25 12:27] LABS: MALB Creatinine Ratio 157.3 mg/g (0-30); Microalbumin Urine Random 99.4 mg/L (0-16.7)
[2024-06-25 13:49] LABS: Alanine Aminotransferase 21 U/L (6-50); Albumin Level 4.2 g/dL (3.5-5.1); Alkaline Phosphatase 113 U/L (38-126); Anion Gap 8 mmol/L (4-12); Aspartate Amino Transferase 24 U/L (17-59); Bilirubin,Total 0.5 mg/dL (0.2-1.3); Blood Urea Nitrogen 22 mg/dL (9-20); Calcium 8.8 mg/dL (8.4-10.2); Carbon Dioxide 28 mmol/L (22-30); Chloride 104 mmol/L (98-107); Cholesterol 162 mg/dL (0-200); Estimated Glomerular Filt Rate 34; Glucose 100 mg/dL (65-110); HDL Direct 39 mg/dL; Potassium 4.2 mmol/L (3.4-5.0); Sodium 140 mmol/L (137-145); Triglycerides 118 mg/dL (<150)
[2024-06-25 14:00] LABS: LDL Cholesterol Direct 102 mg/dL
[2024-06-25 14:18] LABS: Prostate Specific Antigen 0.9 ng/mL (< OR = 4.0)
[2024-06-25 17:45] LABS: Hemoglobin A1C 5.6 % (<5.7)
== END 2024-06-25 09:14 | disposition home or self-care (01) ==
LOC: ANHIMG 09:27
PROVIDERS: PCP Family Medicine; Referring Provider Nurse Practitioner Family; Visit Provider Podiatrist Foot & Ankle Surgery
DX: E11.9 Type 2 diabetes mellitus without complications (principal); I25.10 Atherosclerotic heart disease of native coronary artery without angina pectoris; Z79.4 Long term (current) use of insulin; R52 Pain, unspecified; R31.29 Other microscopic hematuria; G83.14 Monoplegia of lower limb affecting left nondominant side; L97.429 Non-pressure chronic ulcer of left heel and midfoot with unspecified severity; M85.872 Other specified disorders of bone density and structure, left ankle and foot; M77.32 Calcaneal spur, left foot; M19.072 Primary osteoarthritis, left ankle and foot
CPT/HCPCS: 36415; 73630; 73721; 80053; 80061; 82043; 83036; 84153; 84439; 84443; 85027

== ENCOUNTER 2025-02-04 15:21 | Outpatient (CLI) | payer MEDICARE, SELFPAY ==
[2025-02-04 15:53] LABS: Hematocrit 46.8 % (42.0-52.0); Hemoglobin 14.9 g/dL (14.0-18.0); Mean Corpuscular HGB Conc 31.8 g/dl (32-36); Mean Corpuscular Hemoglobin 29.9 pg (26-34); Mean Corpuscular Volume 93.8 fl (80-100); Mean Platelet Volume 9.5 fl (7.4-10.4); Platelet Count Result 176 k/mm3 (150-375); Red Blood Count 4.99 M/mm3 (4.6-6.20); Red Cell Distribution Width 12.8 % (11.5-14.5); White Blood Count 9.2 K/mm3 (4.5-10.0)
[2025-02-04 16:09] LABS: Alanine Aminotransferase 14 U/L (6-50); Albumin Level 4.4 g/dL (3.5-5.1); Alkaline Phosphatase 116 U/L (38-126); Anion Gap 10 mmol/L (4-12); Aspartate Amino Transferase 16 U/L (17-59); Bilirubin,Total 0.7 mg/dL (0.2-1.3); Blood Urea Nitrogen 31 mg/dL (9-20); Calcium 9.2 mg/dL (8.4-10.2); Carbon Dioxide 26 mmol/L (22-30); Chloride 107 mmol/L (98-107); Cholesterol 144 mg/dL (0-200); Estimated Glomerular Filt Rate 35; Glucose 144 mg/dL (65-110); HDL Direct 44 mg/dL; Sodium 143 mmol/L (137-145); Triglycerides 80 mg/dL (<150)
[2025-02-04 16:19] LABS: Creatinine Urine 76.1 mg/dL
[2025-02-04 16:21] LABS: LDL Cholesterol Direct 86 mg/dL
[2025-02-04 16:26] LABS: T4 Thyroxine 5.25 ug/dL (5.53-11.0)
[2025-02-04 16:27] LABS: Vitamin D 25 Hydroxy 32.5 ng/mL
--- OUTSIDE RECORDS SUMMARY | 2025-02-04 16:53 | XMS_ITS | Clinical Summary ---
Author Organization [facility] Address [address] [place] [address] Care Team Providers Care Machine Operators Name Role Phone Lewis Chopra MD Primary Care Provider [phone] Source Comments [facility],non-owned Affiliates and Associated Physician Practices is amultiple site organization consisting of ambulatory clinics and hospital sitesin [place], [place], [place] and [place]. This disclosure is being madepursuant to the Care Everywhere program and may not contain all information available regarding this patient. Last updated 18.[facility] Allergies No known active allergies Medications * Be aware that medications may not be up to date on this document. Alwaysverify current medications with the patient. Medication Sig Dispensed Refills Start Date End Date Status acetaminophen (Tylenol) 325 MG tablet Take 2 (two) tablets by mouth every 4 hours as needed Maximum allowable Acetaminophen amount = 4 Grams (4000 mg) / 24 hours. 90 tablet 03/10/2023 Active amiodarone (Cordarone) 200 MG tabletIndications: Atrial Fibrillation Take 1 (one) tablet by mouth once daily Reasons: Atrial Fibrillation 90 tablet 03/11/2023 Active apixaban (Eliquis) 5 MG tablet Take 1 (one) tablet by mouth 2 times daily 180 tablet 03/10/2023 Active gabapentin (Neurontin) 300 MG capsule Take 1 (one) capsule by mouth 3 times daily 270 capsule 03/10/2023 Active sertraline (Zoloft) 100 MG tablet Take 1 (one) tablet by mouth once daily 90 tablet 03/11/2023 Active traZODone (Desyrel) 50 MG tablet Take 1 (one) tablet by mouth nightly as needed for Insomnia 90 tablet 03/10/2023 Active insulin glargine (Lantus/Semglee) 100 units/mL pen Inject 50 (fifty) Units subcutaneously every morning 45 mL 03/11/2023 Active metoprolol tartrate IR (Lopressor) 100 MG tablet Take 1 (one) tablet by mouth 2 times daily 180 tablet 03/10/2023 Active capsaicin (Zostrix) 0.025 % cream Apply to affected area 3 times daily 50 g 03/10/2023 Active lidocaine (Lidoderm) 5 % patch Apply 2 (two) patches to skin every 24 hours Apply patch to most painful area and remove after 12 hours. May reapply a new patch 12 hours later. 30 patch 03/11/2023 Active lactulose (Chronulac) 10 GM/15ML solution Take 30 mL by mouth once daily as needed for Constipation 473 mL 03/10/2023 Active polyethylene glycol 3350 (Miralax) 17 g packet Take 17 (seventeen) g by mouth once daily 24 packet 03/11/2023 Active sennosides (Senokot) 8.6 MG tablet Take 1 (one) tablet by mouth once daily 90 tablet 03/11/2023 Active Melatonin 10 MG Take 10 (ten) mg by mouth at bedtime 90 tablet 03/10/2023 Active calcium-vitamin D (Os-Vinny 500 + D) 500-200 mg-unit tablet Take 1 (one) tablet by mouth 3 times daily with meals 270 tablet 03/10/2023 Active ticagrelor (Brilinta) 90 MG tablet Take 1 (one) tablet by mouth 2 times daily 180 tablet 03/10/2023 Active pantoprazole EC (Protonix) 40 MG tablet Take 1 (one) tablet by mouth 2 times daily 180 tablet 03/10/2023 Active vitamin D, ergocalciferol, (Drisdol) 1.25 MG (76872 UT) capsuleIndications :Vitamin D Deficiency Take 1 (one) capsule by mouth every Tuesday & Reasons: Vitamin D Deficiency 90 capsule 03/10/2023 Active Active Problems Problem Noted Date Diagnosed Date High anion gap metabolic acidosis 03/06/2023 Acute blood loss anemia 03/02/2023 Duodenal ulcer 03/02/2023 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 03/02/2023 Lung mass 03/02/2023 Sepsis due to methicillin re sistant Staphylococcus aureus (MRSA) with acute renal failure and tubular necrosis without septic shock 02/25/2023 Nephrotic syndrome 02/22/2023 Coronary artery disease involving coronary bypas s graft 02/16/2023 CELSO (acute kidney injury) 02/16/2023 Depression 02/16/2023 DM2 (diabetes mellitus, type 2) 02/16/2023 Metabolic acidosis, increased anion gap 02/17/20 23 (HFpEF) heart failure with preserved ejection fr action 02/16/2023 HTN (hypertension) 02/16/2023 A-fib 02/16/2023 PERLITA (obstructive sleep apnea) 02/16/2023 Obesity hypoventilation syndrome 02/16/2023 Urinary retention 02/16/2023 Leukocytosis 02/16/2023 Diabetic keto-acidosis 02/16/2023 MRSA bacteremia 02/16/2023 Cauda equina compression 02/15/2023 Resolved Problems Problem Noted Date Diagnosed Date Resolved Date Cystitis, acute 02/16/2023 02/22/2023 HLD (hyperlipidemia) 02/16/2023 023 Family History Medical History Relation Name Comments Cancer - Lung Brother Leukemia Father Renal Disease Mother Diabetes - Type 2 Son Relation Name Status Comments Brother Father Mother Son Alive Social History Tobacco Use Types Packs/Day Years Used Date Smoking Tobacco: Former Cigarettes 0.5 4 1 984 - 1987 Cigars 1987 - 2021 Smokeless Tobacco: Never Alcohol Use Standard Drinks/Week Comments Not Currently 0 (1 standard drink = 0.6 oz pur e alcohol) AUDIT-C Answer Date Recorded Q1: How often do you have a drink containing alc ohol? Monthly or less 02/16/2023 Q2: How many drinks containi ng alcohol do you have on a typical day when you are drinking? 1 or 2 02/16/2023 Q3: How often do you have si x or more drinks on one occasion? Never 02/16/2023 Overall Financial Resource Strain (CARDIA) Answe r Date Recorded How hard is it for you to pa y for the very basics like food, housing, medical care, and heating? Not hard at all 02/16/2023 [facility] [place] of Occupat ional Health - Occupational Stress Questionnaire Answer Date Recorded Do you feel stress - tense, restless, nervous, or anxious, or unable to sleep at night because your mind is troubled all the time - these days? Not at all 02/16/2023 Hunger Vital Sign Answer Date Recorded Within the past 12 months, y ou worried that your food would run out before you got the money to buy more. Never true 02/17/20 23 Within the past 12 months, t he food you bought just didn't last and you didn't have money to get more. Never true 02/16/2023 PRAPARE - Transportation Answer Date Re corded In the past 12 months, has l ack of transportation kept you from medical appointments or from getting medications? No 02/05 In the past 12 months, has l ack of transportation kept you from meetings, work, or from getting things needed for daily living? No 02/16/2023 Housing Stability Vital Sign Answer Sebas e Recorded In the last 12 months, was t here a time when you were not able to pay the mortgage or rent on time? No 02/16/2023 In the last 12 months, how many places have you lived? 1 02/16/2023 In the last 12 months, was t here a time when you did not have a steady place to sleep or slept in a [facility] (including now)? No 02/16/2023 Sex and Gender Information Value Date Recorded Sex Assigned at Not on file Gender Identity Not on file Sexual Orientation Not on file Last Filed Vital Signs Vital Sign Reading Time Taken Comments Blood Pressure 130/70 03/10/2023 8:33 PM CDT Pulse 75 03/10/2023 8:33 PM CDT Temperature 37 C (98.6 F) 03/10/2023 4:42 PM CDT Respiratory Rate 20 03/10/2023 7:35 PM CDT Oxygen Saturation 92% 03/10/2023 7:35 PM CDT Inhaled Oxygen Concentration 40% 03/07/2023 3 :38 AM CDT Weight 184.6 kg (407 lb) 02/28/2023 4:00 AM CDT Height 172.7 cm (5' 7.99 ) 02/24/2023 11:43 PM C DT Body Mass Index 61.9 02/24/2023 11:43 PM CDT Plan of Treatment Health Maintenance Due Date Last Done Comments COLOGUARD (AGES 45-75) - COLON CA SCREENING 1957 COLON MONITORING 1957 COLONOSCOPY - COLON CA SCREENING 1957 CT COLONOGRAPHY - COLON CA SCREENING 1957 Colorectal Cancer Screening 1957 FIT - COLON CA SCREENING 1957 FLEX SIG - COLON CA SCREENING 1957 MEDICARE AWV 12 MONTHS 1957 DTAP/TDAP/TD VACCINES (1 - Tdap) 1976 PNEUMOCOCCAL VACCINE 50+ (1 of 2 - PCV) 1976 DIABETES-STATIN 1997 ZOSTER VACCINE (1 of 2) 2007 Respiratory Syncytial Virus (RSV) Vaccine Pt: or over 60 yrs (1 - Risk 60-74 years 1-dose series) 2017 AAA SCREENING 2022 DIABETES RETINOPATHY SCREENING 02/16/2023 DIABETES-FOOT EXAM WITH MONOFILAMENT 02/16/2023 DIABETES-HGB A1C 08/02/2023 05/02/2023, 10/2023, 02/14/2023, Additional history exists DIABETES-SERUM CREATININE 05/01/20242022, 05/01/2023, 04/26/2023, Additional history exists COVID-19 VACCINE ( season) 2024 11/13/2021, 02/09/2021, 01/19/2021 INFLUENZA VACCINE (#1) 2024 DEPRESSION SCREENING 11/07/2024 DIABETES - URINE PROTEIN SCREENING 11/07/2024 HEPATITIS C SCREENING Completed 02/18/2023 HEPATITIS B VACCINE Aged Out No longe r eligible based on patient's age to complete this topic HIB VACCINE Aged Out No longer eligi ble based on patient's age to complete this topic HPV VACCINE Aged Out No longer eligi ble based on patient's age to complete this topic MENINGOCOCCAL (Group B) VACCINE SHARED DECISION-MAKING Aged Out No longer eligible based on patient's age to complete this topic MENINGOCOCCAL GROUPS A/C/Y/W VACCINE Aged Out No longer eligible based on patient's age to complete this topic Procedures Procedure Name Priority Date/Time Associated Diagnosis Comments RENAL FUNCTION PANEL AM Draw 03/10/2023 5:11 AM CDT HEPATITIS C AB SCREEN RFLX NAAT QUANT STAT 02/18/2023 3:20 AM CDT HEMOGLOBIN A1C Routine 02/16/2023 1:23 AM CDT from Last 3 Months or Most Recently Relevant to Health Maintenance Results * (ABNORMAL) RENAL FUNCTION PANEL (03/10/2023 5:11 AM CDT) BUN 35(H) 7 - 26 mg/dL 03/10/2023 5:51 AM [facility] Creatinine 1.84(H) 0.71 - 1.16 mg/dL 03/10/2023 5:51 AM [facility] Sodium 139 136 - 145 mmol/L 03/10/2023 5:51 AM [facility] Potassium 4.5 3.5 - 4.5 mmol/L 03/10/2023 5:51 AM [facility] Chloride 108(H) 98 - 107 mmol/L 03/10/2023 5:51 AM [facility] CO2 26 22 - 29 mmol/L 03/10/2023 5:51 AM [facility] Glucose 103 70 - 115 mg/dL 03/10/2023 5:51 AM [facility] Albumin 3.0(L) 3.4 - 5.0 g/dL 03/10/2023 5:51 AM [facility] Calcium 8.6 8.4 - 10.2 mg/dL 03/10/2023 5:51 AM [facility] Phosphorus 3.2 2.8 - 5.1 mg/dL 03/10/2023 5:51 AM [facility] Anion Gap 10 8 - 18 03/10/2023 5:51 AM [facility] BUN/Creatinine Ratio 19 7 - 23 03/10/2023 5:51 AM [facility] Osmolality Calculated 296 270 - 300 mOsm/kg 03/10/2023 5:51 AM [facility] eGFR by CKD-EPI 40(L) >=90 mL/min/1.7 3 m2 03/10/2023 5:51 AM CDT [facility] Blood BLOOD SPECIMEN / Unknown Line Draw / Unknown 03/10/2023 5:11 AM CDT 03/10/2023 5:24 AM CDT Mehul Coronado MD LAB - CHEMISTRY ORDERABLES Performing Organization Address [facility] Co de Phone Number [address] [address], [facility] [phone] * HEPATITIS C AB SCREEN RFLX NAAT QUANT (02/18/2023 3:20 AM CDT) Pathologist [facility] Hepatitis C Antibody Non-react abby Non-reac tive 02/18/2023 7:22 AM CDT [facility] Comment:Hepatitis C Antibody screen indicates no serologic evidence of past or current infection with Hepatitis C Virus. Patients with unexplained liver disease who are immunocompromised or suspected of having acute Hepatitis C infection may benefit from Nucleic Acid Test (HALEY) for Hepatitis C Viral RNA to confirm Hepatitis C status. Blood BLOOD SPECIMEN / Unknown Venipuncture / Unknown 02/18/2023 3:20 AM CDT 02/18/2023 3:26 AM CDT Mehul Coronado MD LAB - CHEMISTRY ORDERABLES Performing Organization Address [facility] Co de Phone Number [address] [address], [facility] [phone] * (ABNORMAL) HEMOGLOBIN A1C (02/16/2023 1:23 AM CDT) Hemoglobin A1c 9.6(H) <=5.6 % 02/16/2023 9:35 AM T [facility] Estimated Average Glucose 229 mg/dL 02/16/2023 9:35 AM CDT [facility] Comment: HbA1c Interpretation: Normal : < 5.7% Pre-diabetes: 5.7-6.4% Diabetes: Equal to or greater than 6.5% Test results diagnostic of diabetes should be repeated for confirmation. Treatment target values recommended by ADA and other clinical organizations should be used to evaluate metabolic control in patients. Reference: [place] Diabetes Association, Standards of Care in Diabetes -2020 In patients 70 years and older consider HbA1c target range of 7.0-7.5% (Reference: Antwan Aldana et al. JAMDA. 2012) The Sebia assay for the measurement of HbA1c is a National Glycohemoglobin Standardization Program (NGSP) certified method. Blood BLOOD SPECIMEN / Unknown Venipuncture / Unknown 02/16/2023 1:23 AM CDT 02/16/2023 1:29 AM CDT Mehul Coronado MD LAB - CHEMISTRY ORDERABLES [facility] [address] [place] [address], [facility] [phone] from Last 3 Months or Most Recently Relevant to Health Maintenance Additional Health Concerns Infection Onset Date Last Indicated MRSA 02/16/2023 02/23/2023 Advance Directives * Full Code (Latest Code Status on File) Date Activated Date Inactivated Comments 02/16/2023 12:51 AM 03/10/2023 11:28 PM Care Teams Machine Operators Relationship Specialty Start Date End Date Lewis Chopra MD [address] [place] [id number] PCP - General 02/17/23
--- OUTSIDE RECORDS SUMMARY | 2025-02-04 16:53 | XMS_ITS | Encounter Summary ---
Author Organization [facility] Address [address] [place] [address] Care Team Providers Care Toter Name Role Phone Lewis Chopra MD Primary Care Provider [phone] Encounter Details Date Type Department Care Team (Late st Contact Info) Description 03/16/2023 Telephone [facility] - Infectious Disease [address] [facility] [place] [address] Harrison Titus MD [facility] [facility] [place] [address] Social History Tobacco Use Types Packs/Day Years [...] and heating? Not hard at all 02/16/2023 [facility] [place] [facility] Occupat ional Health - Occupational Stress [...] place to sleep or slept in a nursing home (including now)? No 02/16/2023 Sex and Gender Information Value Date Recorded Sex Assigned at Not on file Gender Identity Not on file Sexual Orientation Not on file documented as of this encounter Functional Status Functional Status Response Date of Assess ment Is person deaf or have serious hearing difficult y? No 02/16/2023 Is person blind or have serious difficulty seein g? No 02/16/2023 Does person have serious dif ficulty walking/climbing stairs? Yes 02/16/2023 Does person have difficulty dressing/bathing? Ye s 02/16/2023 Does person have difficulty doing errands alone? Yes 02/16/2023 Cognitive Status Response Date of Assessm ent Does person have difficulty concentrating/remembering/making decisions? No 02/16/2023 documented as of this encounter Miscellaneous Notes * Telephone Encounter - Melody Chou 03/16/2023 1:42 PM CDT Current Provider name: Dr. Harrison Titus Reason for call: [facility]. Hong [facility] called to have his 04/05/2023[facility] OP ANTIBIOTIC THERAPY appt rescheduled to 04/12/2023 because he will have NO transportation. Schedule conflict. [facility], , contact is Amaya over scheduling and transportation. Give her a call to reschedule and with any questions. Thanks. Patient Call Back number: [phone] documented in this encounter Plan of Treatment Not on file documented as of this encounter Visit Diagnoses Not on filedocumented in this encounter Additional Health Concerns Infection Onset Date Last Indicated Resolved Time MRSA 02/16/2023 02/23/2023 documented as of this encounter Care Teams Toter Relationship Specialty Start Date End Date Lewis Chopra MD [address] [place] [id number] PCP - General 02/17/23 documented as of this encounter
--- OUTSIDE RECORDS SUMMARY | 2025-02-04 16:53 | XMS_ITS | Continuity of Care Document ---
Author Organization [facility] Address [address] [place] [address] Phone Care Team Providers Care Sweatband Decorating Machine Operator Name Role Phone Ivis VILLALTA, Claudy Unavailable Unavailable Advance Directives Directive Yes / No Effective Date File Name No Information Encounters Encounter Description Practice Location Reason(s) For Visit Diagnoses Date Provider Providers Copied on Encounter [employer], [address], [place], [place], [id number], [place] tel:[phone] [facility] No Information Ivis Loco. [address] , [place], [place], [address], [place]. tel:[phone] Referring Provider: Hong Hernandez DO, [address], [place], [address]. tel:[phone] Family History Family Member Type Diagnosis Age At Onset No Information Payers Payer name Insurance type Covered republican ID Authoriza tion(s) [employer] OPEN ACCESS I II III CI [id number] Social History Type Description Quantity Date Captured Comments Sex Male Smoking Status No Information Chief Complaint And Reason For Visit No Information Reason For Referral Reason For Referral No Information History Of Present Illness Encounter Date Complaint History Of Prese nt Illness No Information Functional Status Date Functional Assessmen t No Information Instructions Date Instruction Additional Infor mation No Information Assessments Type Assessment Date No Information Patient Care Teams Name Effective Dates (start - stop) Status Members No Information
--- OUTSIDE RECORDS SUMMARY | 2025-02-04 16:53 | XMS_ITS | Referral Summary ---
Author Organization [facility] D Address [address] [place] [id number] Care Team Providers Care Cruise Agent Name Role Phone Jaya Dailey MD Primary Care Provider [phone] Abelardo Gastelum MD Unavailable Encounters Date Type Department Care Team Description 12/03/2024 Telephone [facility] Surgery [address] [place] [address] [address] [place] [address] Pretty, Lupe, RMA from Last 3 Months Allergies No known active allergies Medications acetaminophen (TYLENOL) 325 mg tablet Take 2 tablets (650 mg total) by mouth 4 (four) times a day Active melatonin 10 mg tablet Take 1 tablet (10 mg total) by mouth nightly Active calcium carbonate-vitam in D3 1,250mg (500mg elemental) - 5 mcg (200 units) per tablet Take 1 tablet by mouth 3 (three) times a day with meals Active ergocalciferol (VITAMIN D) 50,000 unit capsule Take 1 capsule (50,000 Units total) by mouth once a week Tuesday Active sertraline (ZOLOFT) 100 mg tablet Take 1 tablet (100 mg total) by mouth daily Active capsaicin (ZOSTRIX) 0.025 % cream Apply 1 Application topically every 8 (eight) hours Active omeprazole (PriLOSEC) 20 mg capsule Take 1 capsule (20 mg total) by mouth daily Active insulin lispro (HumaLOG, ADMELOG) 100 unit/mL pen for injection Inject 2-10 Units under the skin 3 (three) times a day before meals additional sliding scale with meals only. Do not use any extra sliding scale if blood sugar less than 149. Take 2 units between 150-199, take 4 units between 200-249, take 6 units between 250-299, take 8 units between 300-349, > 350 blood sugar take 10 units and call Provider. Active metoprolol tartrate (LOPRESSOR) 25 mg immediate release tablet Take 1.5 tablets (37.5 mg total) by mouth 2 (two) times a day 90 tablet 3 Active levothyroxine (SYNTHROID) 25 mcg tablet Take 1 tablet (25 mcg total) by mouth early childhood educator aide before breakfast Given at 6 am 30 tablet 3 Active gabapentin (NEURONTIN) 300 mg capsule Take 1 capsule (300 mg total) by mouth 3 (three) times a day with meals 90 capsule 3 Active fluticasone furoate-vilante roL (Breo Ellipta) 200-25 mcg/dose diskus inhalerIndicati ons:Bronchospas m Prevention with COPD Inhale 1 puff daily Rinse mouth with water after use. Do not swallow. 60 each 3 Active Additional Information Patient not taking.Reported on 08/08/2024 povidone-iodine (BETADINE) 10 % external solution Apply topically daily 480 mL 3 Active Additional Information Patient not taking.Reported on 08/08/2024 oxyCODONE (ROXICODONE) 15 mg immediate release tabletIndicatio ns:Pain Take 1 tablet (15 mg total) by mouth every 4 (four) hours as needed for pain 90 tablet 3 Active Additional Information Patient not taking.Reported on 08/08/2024 Lidocaine Pain Relief 4 % adhesive patch,medicated 99 3 Active metOLazone (ZAROXOLYN) 5 mg tablet 3 Active senna (SENOKOT) 8.6 mg tablet Take 1 tablet by mouth daily 3 Active sulfamethoxazol e-trimethoprim (BACTRIM DS) 800-160 mg per tablet 3 Active amoxicillin (AMOXIL) 875 mg tablet 4 Active triamcinolone (KENALOG) 0.1 % cream 4 Active SantyL ointment 4 Active apixaban (ELIQUIS) 5 mg tablet Take 1 tablet (5 mg total) by mouth 2 (two) times a day 60 tablet 11 4 Active rosuvastatin (CRESTOR) 40 mg tablet Take 1 tablet (40 mg total) by mouth daily 30 tablet 11 4 08/08/20 25 Active aspirin 81 mg enteric coated tablet Take 1 tablet (81 mg total) by mouth daily 30 tablet 11 4 08/08/20 25 Active Active Problems Patient Care Coordination No te Formatting of this note migh t be different from the original. Rupal Duffy NP 05/06/2023 09:08 AM This is a 67-year-old male patient presenting to the clinic today for postoperative follow-up after undergoing a VATS decortication of a localized pleural effusion on 04/20/[address] Mauro. He has a past medical history significant for GERD, polyneuropathy due to type 2 diabetes mellitus, anxiety, arthritis, atrial fibrillation, CAD, chronic respiratory failure with hypoxia, CKD stage 3, depression, diastolic heart failure, hypertension, hyperlipidemia, STEMI, nonsustained ventricular tachycardia, sleep apnea, and weakness of both legs. He is a former smoker who quit in 2017. He is to have a follow-up chest x-ray prior to visit today. He is here for further evaluation and discussion. Problem Noted Date Diagnosed Date Abdominal bloating 09/23/2023 Assessment & Plan (09/23/2023 4:10 PM KOSHER BUTCHER): By hx suspect more gas/bloating Consider constipation On oxy, says needs stronger pain meds for djd No melena or acute distress comes and goes Kub pending Try mylicon tid If no better may need cbc and concern for pud Ulcer of left foot 08/16/2023 Diabetic neuropathy, type II diabetes mellitus 1 Gross hematuria 08/05/2023 Assessment & Plan (08/11/2023 8:25 PM CDT): Was likely traumatic Cleared up after holding eliquis Back on now Assessment & Plan (08/05/2023 4:24 PM CDT): Likely trauma and on eliquis Hold eliqius x24 h given active bleeding Cbc and ucx pending Consider hold longer if needed Some slight improvement perhaps today Decubitus ulcer of heel, left, unstageable 08/01 Assessment & Plan (09/23/2023 4:09 PM KOSHER BUTCHER): Wound care following Still wrapped No active infection stable Assessment & Plan (08/11/2023 8:25 PM CDT): Wc following w tx in place Assessment & Plan (08/05/2023 4:24 PM CDT): Dw nurse, finishing up doxy abt for this, cont wc Assessment & Plan (08/01/2023 7:44 PM CDT): Wc nurse seeing pt w me Cont wound care Finish up augmentin and other po abt Neurogenic bladder 08/01/2023 Assessment & Plan (09/23/2023 4:09 PM KOSHER BUTCHER): Multifactorial Also obstructive Cont murillo Assessment & Plan (08/11/2023 8:25 PM CDT): Has catheter Staff to arrange urology fu for xchg Assessment & Plan (08/05/2023 4:24 PM CDT): Has murillo in place, hx of SAMANTA, unlikely to improve Assessment & Plan (08/01/2023 7:45 PM CDT): Cont spc Rt samanta Has 10 uro appt Encounter for examination for admission to [facility] 07/28/2023 Chronic atrial fibrillation 07/28/2023 Assessment & Plan (08/05/2023 4:23 PM CDT): Holding eliquis x24h for hematuria Ucx and cbc pending Consider holding longer if need be Rate controlled cardio stbl Assessment & Plan (08/01/2023 7:44 PM CDT): Cont lopressor and apixaban Stable Rt controlled Severe malnutrition 07/19/2023 Frequent falls 07/18/2023 Assessment & Plan (08/01/2023 7:44 PM CDT): Pt/ot Likely needing ltc Physical debility 07/18/2023 UTI (urinary tract infection) 07/17/2023 Infected wound 06/21/2023 Assessment & Plan (08/11/2023 8:24 PM CDT): Wc nurse following Finished up abt Improving clinically Pain controlled Assessment & Plan (08/01/2023 7:45 PM CDT): On doxy and augmentin for 10d for heel wound Wc nurse following Dw him Assessment & Plan (06/27/2023 10:56 AM CDT): Abx complete in am. Erythema, redness, tenderness resolved. Hypokalemia 06/21/2023 Assessment & Plan (07/08/2023 2:05 PM CDT): Mag normal. Continue KCL. Normalized. Assessment & Plan (06/27/2023 10:57 AM CDT): K 3.1. Will check Mag. Increase Kcl to 40mg BID. Recheck labs Thurs. Assessment & Plan (06/21/2023 12:02 PM CDT): Increase suppl to BID dosing. Monitor. Neurogenic bladder 05/02/2023 Assessment & Plan (07/14/2023 10:31 AM CDT): S/p subrapubic cath. Fu Dr. Maldonado outpt. Assessment & Plan (07/11/2023 4:03 PM CDT): IR fup in am. Ambulance has been arranged per SS. Assessment & Plan (07/08/2023 2:05 PM CDT): Fu with IR 07/12. Assessment & Plan (06/27/2023 10:56 AM CDT): IR fu 07/12. Continue suprapubic cath care. Assessment & Plan (06/21/2023 11:58 AM CDT): Patient has fu with IR /. At this appt IR will upsize SPT & he will fu with Dr. Maldonado moving forward. Today nursng reporting warmth, erythema, & tenderness to site. He also has some drainage. Will start on abx. Monitor closely. Assessment & Plan (06/20/2023 11:06 AM CDT): Hematuria resolved. Resume Brillanta & Eliquis. FU with IR moved to 07/12. SS to make sure transportation arranged oupt. Assessment & Plan (06/16/2023 8:44 AM CDT): Hematuria clearing. Orders in place to resume AC 06/19 if cleared. Patient denies any other concerns or complaints. Assessment & Plan (06/14/2023 10:41 AM CDT): Subrapubic catheter placed. Hematuria present to bag. Eliquis & Brillanta remain on hold x5days, can resume if urine clear, if not continue to hold. Have updated nursing. Assessment & Plan (06/07/2023 12:58 PM CDT): IR for subrapubic catheter scheduled for 06/13. Brillanta & Eliquis remain on hold. Assessment & Plan (06/02/2023 1:28 PM CDT): Dr. Maldonado unable to successful place subrapubic catheter. Recommends referral to IR. Referral made. SS arranging appt/procedure. Will continue to leave Eliquis & Brillanta on hold. Assessment & Plan (05/31/2023 10:34 AM CDT): Urology procedure scheduled for am. Brillanta & Eliquis remain on hold. Assessment & Plan (05/26/2023 8:54 AM CDT): Scheduled for murillo catheter exchange vs subrapubic placement 06/[address] Maldonado. Brillanta placed on hold today. Last dose 05/26 0842, Eliquis to be placed on hold 05/30 with last dose being given 05/29. Will resume after procedure. SS notified of procedure, awaiting paperwork & time. Assessment & Plan (05/24/2023 10:53 AM CDT): Urology office still waiting on clearance from PCP. Remains on Brillanta + Eliquis. Procedure to be pushed back to next week. Patient updated. Assessment & Plan (05/20/2023 12:23 PM CDT): Patient to have procedure 05/18 but had to be canceled d/t Brillanta. Urology trying to obtain cardiac clearance but patients primary pit steward will not give d/t not seeing in clinic for >1yr. Clarifying with Urology plan as patient is tentatively scheduled for 05/25 but medications remain not on hold. Will follow closely. Patient has concerns also regarding permanent catheter options, reassured Dr. Maldonado will discuss prior to procedure. Assessment & Plan (05/17/2023 1:16 PM CDT): Patient was to have subrapubic vs indwelling replacement 05/18. However Brillanta not held. Urology reaching out to Cardiology. Procedure to be rescheduled. Patient notified. Assessment & Plan (05/13/2023 12:20 PM CDT): Have reached out to Urology to discuss recommendations. Waiting for answer. Assessment & Plan (05/02/2023 1:46 PM CDT): S/t history of cauda equina syndrome and underwent L4-S1 laminectomy on 02/17/2023 Weakness of both legs 04/28/2023 Assessment & Plan (11/16/2023 4:16 PM KOSHER BUTCHER): Multifactorial related to chronic illness and cauda equina syndrome. Requiring wheelchair to get around most of the time. Continue long-term care for help with ADLs Assessment & Plan (05/20/2023 12:25 PM CDT): Continue PT/OT. Making good progress but remains unable to walk. Assessment & Plan (05/02/2023 1:43 PM CDT): PT/OT. Assessment & Plan (04/28/2023 3:59 PM CDT): Begin PT and OT; Admit to SNF. This person needs admission to this facility. The patient is at risk of injury, illness and a requirement for a higher level of care without this service. The patient needs assistance from the nurses and care team for all activities of daily living including dressing, hygeine of person and toilet, safe transfer and mobility, dietary needs, medication administration, and grooming. The patient will need physical and occupational therapy to progress to a safer level of care. His goal is to be able to return to his home Per his hx and hosp ds this is a chronic problem, L leg weaker than R (h/o cauda equina) Stage 3b chronic kidney disease 04/26/2023 Assessment & Plan (07/08/2023 2:05 PM CDT): Mildly elevated. Lasix held. Repeat Tuesday. Assessment & Plan (06/14/2023 10:41 AM CDT): Cr stable. Assessment & Plan (05/24/2023 10:53 AM CDT): Cr remains stable. Assessment & Plan (05/17/2023 1:16 PM CDT): Cr stable. Assessment & Plan (05/12/2023 12:18 PM CDT): Cr remains stable. Continue routine monitoring. Assessment & Plan (05/02/2023 1:45 PM CDT): Cr at baseline. Continue to montior. Assessment & Plan (04/28/2023 3:58 PM CDT): Cmp ordered as follow up Nonsustained ventricular tachycardia 04/26/2023 Assessment & Plan (04/28/2023 3:56 PM CDT): Monitor for arrhythmia Acquired hypothyroidism 04/26/2023 Assessment & Plan (04/28/2023 3:57 PM CDT): Tsh ordered Hosp tsh reviewed Cont synthroid Macrocytic anemia 03/25/2023 Permanent atrial fibrillation 03/25/2023 Assessment & Plan (11/16/2023 4:16 PM KOSHER BUTCHER): Currently rate controlled. Continue metoprolol. Discussed with patient about bleeding concerns patient says that whenever he had been scratching himself he bleeds profusely and would like to come off some of his blood thinners. I did talk to him that he is on antiplatelet therapy for his coronary issues but also on Eliquis to help prevent strokes from atrial fibrillation. Patient is agreeable to reducing the dose. We will try a lower dose of Eliquis and keep him on his antiplatelet therapy and monitor for signs of further bleeding. Patient agreeable with this plan and understands the increased stroke risk related to Eliquis Assessment & Plan (08/11/2023 8:24 PM CDT): Back on eliquis and hematuria cleared Stbl, rate controlled Assessment & Plan (05/26/2023 8:57 AM CDT): SEE ABOVE Assessment & Plan (05/20/2023 12:24 PM CDT): BP & Pulse stable. Remains on Brillanta + Eliquis. Assessment & Plan (05/02/2023 1:50 PM CDT): BP fluctuates. Will increase Lopressor to 37.5mg BID. Monitor. Assessment & Plan (04/28/2023 3:55 PM CDT): Cont eliquis and amiodorone Elevated troponin 03/25/2023 Hyperlipidemia 03/25/2023 Assessment & Plan (04/28/2023 3:55 PM CDT): Dietary consult, cont lipitor Duodenal ulcer 03/02/2023 (HFpEF) heart failure with preserved ejection fr action 02/16/2023 Assessment & Plan (11/16/2023 4:16 PM KOSHER BUTCHER): Currently compensated. Continue metolazone metoprolol. Assessment & Plan (08/01/2023 7:43 PM CDT): Compensated Cont lopressor Wraps to le Early stasis changes Assessment & Plan (05/31/2023 10:34 AM CDT): Remains compensated. Continue Lasix + Lopressor. Assessment & Plan (05/12/2023 12:14 PM CDT): Compensated. Continue amiodarone, Lasix, Lopressor. Monitor. Depression 02/16/2023 Obesity hypoventilation syndrome 02/16/2023 Assessment & Plan (08/01/2023 7:44 PM CDT): Cont breo Encourage wt mgt Pt/ot Cauda equina compression 02/15/2023 Assessment & Plan (08/01/2023 7:43 PM CDT): Cont pt/ot Wc dependent Ltd mobility Assessment & Plan (07/14/2023 10:29 AM CDT): s/p L4-S1 laminectomy with Dr. Gastelum on 02/17/23. He was suppose to fu with Dr. Gastelum 04/12 but missed appt d/t being inpt. He did have repeat MRI during hospital which showed multilevel degen changes, and no evidence of discitis, OM, epidural abscess. He was seen by neuro inpt and recommend referral back to [facility]. Fair progress with tx. Able to utilize sliding board but is nonambulatory/wheelchair bound. Fu with Dr. Gastelum outpt [facility]. Assessment & Plan (07/11/2023 4:03 PM CDT): Slow progress. Has fu with Dr. Al this week. Conitnue PT/OT. 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 Slow but consistent progress. Continue to [facility]. Assessment & Plan (06/27/2023 11:00 AM CDT): Fu Dr. Gastelum 07/13 830a. Is transferred indep with slide board. Continue PT/OT. Assessment & Plan (06/20/2023 11:07 AM CDT): No appt scheduled with Dr. Gastelum that I can see. Will ask SS to make again & ensure transportation. Continue Oxy PRN + Gabapentin. Have had long conversations regarding chance of permanent function limitation. Assessment & Plan (06/14/2023 10:42 AM CDT): XR of lumbar spine stable. Continues to have LE weakness, feel this may be permanent. Appt with Dr. Gastelum pending. Assessment & Plan (06/07/2023 12:55 PM CDT): FU with Dr. Gastelum has not been scheduled. Will address with SS again. He continues to have weakness to LE, inability to walk. Pain controlled. Neurogenic bladder. Will order XR of lumbar spine. Assessment & Plan (05/31/2023 10:33 AM CDT): s/p L4-S1 laminectomy with Dr. Gastelum on 02/17/23. He was suppose to fu with Dr. Gastelum 04/12 but missed appt d/t being inpt. He did have repeat MRI during hospital which showed multilevel degen changes, and no evidence of discitis, OM, epidural abscess. He was seen by neuro inpt and recommend referral back to [facility]. He continues to have poor progress with therapy, unable to stand, walk. Have asked ss to set up fu with Dr. Gastelum. Assessment & Plan (05/24/2023 10:53 AM CDT): Pain controlled. Slow progress with tx. Remains sarah lift. Assessment & Plan (05/17/2023 1:16 PM CDT): Progressing well with tx. Continue to monitor. Abnormal stress test 01/30/2019 Overview (01/30/2019): Added automatically from request for surgery [id number] Diabetic polyneuropathy asso ciated with type 2 diabetes mellitus 01/19/2018 Assessment & Plan (08/01/2023 7:43 PM CDT): Cont lispro Cont pt/ot In motorized scooter Staff looking into cgm Cont gabapentin Stable Monitor sugars watch for hypoglyc Class 3 severe obesity due t o excess calories with serious comorbidity and body mass index (BMI) of 40.0 to 44.9 in adult 01/19/2018 Assessment & Plan (04/28/2023 3:57 PM CDT): Dietary consult Coronary artery disease involving coronary bypas s graft 01/19/2018 Assessment & Plan (05/26/2023 8:58 AM CDT): Brillanta will be placed on hold x 5 days prior for urology procedure & Eliquis 2 days prior. Patient needs to fu with Cardiology outpt as has been 2yr since he has been seen. Assessment & Plan (04/28/2023 3:54 PM CDT): Cont lopressor; cont ntg sl 0.4mg prn angina History of ST elevation myocardial infarction (S AILIN) 01/19/2018 Hypertension 01/05/2018 Assessment & Plan (07/04/2023 2:42 PM CDT): BP stable. Continue Lasix + Lopressor. Assessment & Plan (05/24/2023 10:54 AM CDT): BP stable. Continue Lasix, Lopressor. Assessment & Plan (05/12/2023 12:13 PM CDT): BP flucutates. Soft at times. Continue Lopressor with close monitoring. Assessment & Plan (04/28/2023 3:54 PM CDT): Cont lopressor Assessment & Plan (01/05/2018 11:41 AM KOSHER BUTCHER): Controlled. Continue with metoprolol. Monitor blood pressure closely. Diabetes 01/05/2018 Assessment & Plan (07/04/2023 2:41 PM CDT): BS well controlled, 130-200. Continue SSI. Assessment & Plan (06/14/2023 10:46 AM CDT): BS 150-220. Requiring 2u SSI with most meals. Assessment & Plan (05/26/2023 8:57 AM CDT): BS 159-185. Requiring 2u of insulin Lispro with meals. Assessment & Plan (05/12/2023 12:16 PM CDT): A1c 5.7. Continues on SSI. BS running 150-230. Unsure if was taking insulin prior. Could benefit with GLP1 with obestity, Assessment & Plan (04/28/2023 3:56 PM CDT): Cbc, bmp, A1c, tsh ordered Monitor bg poc Cont ins glargine and ins lispro Assessment & Plan (01/05/2018 11:42 AM KOSHER BUTCHER): Insulin pump being held for now. SSI provided. Will check a1c. Obstructive sleep apnea on CPAP 01/05/2018 Assessment & Plan (04/28/2023 4:00 PM CDT): Cont to use cpap Former smoker 01/05/2018 Overview (05/09/2023): Last Assessment & Plan: Counseled on cessation. Resolved Problems Problem Noted Date Diagnosed Date Resolved Date Empyema lung 05/09/2023 05/31/2023 Epistaxis 05/02/2023 05/12/2023 Assessment & Plan (05/02/2023 1:48 PM CDT): Resolved. Eliquis placed on hold. Will restart. Murillo catheter present 04/28/202306/14 Assessment & Plan (06/02/2023 1:28 PM CDT): Murillo exchanged 06/01. Assessment & Plan (05/02/2023 1:45 PM CDT): Chronic s/t neurogenic changes. Needs to be changed monthly via cytoscopy. Will have SS arrange. Assessment & Plan (04/28/2023 4:04 PM CDT): This was placed by LIDYA Maldonado. It is advised to be changed monthly and note must be changed w cystoscopy Acute on chronic diastolic c ongestive heart failure 04/26/2023 05/12/2023 Assessment & Plan (04/28/2023 3:55 PM CDT): Cont lasix Hyponatremia 04/26/2023 04/28/2023 Severe protein-calorie malnutrition 04/01/2023 07/14/2023 Assessment & Plan (04/28/2023 4:13 PM CDT): Brought this to the attention of button sewer Halina who will ask for an air flow mattress through admin. Otherwise cont care same Assessment & Plan (04/28/2023 3:57 PM CDT): Dietry consult Reviewed ds from hosp He does not want any artifical feeding to include TF SOB (shortness of breath) 03/25/2023 Chronic respiratory failure with hypoxia 03/25/2023 06/07/2023 Assessment & Plan (05/13/2023 12:13 PM CDT): Persistent opacity within the right base, which could reflect atelectasis or pneumonia. Minimal fluid tracking along the right minor fissure. No large effusion or appreciable pneumothorax. 2. Left lung clear Result per CXR. WBC nl, afebrile. No sx of pna. Will add Mucinex & monitor. Recommend repeat cxr or CT in 7-10d. Assessment & Plan (05/12/2023 12:20 PM CDT): Patient reports increased chest tightness with gurgling. Likely muscle strain but will check CXR 1 v. Has been reviewed inhaler, educated to attempt to not refuse. HAP (hospital-acquired pneumonia) 03/25/2023 05/12/2023 Assessment & Plan (05/02/2023 1:43 PM CDT): Complete doxy as ordered. Bilateral pleural effusion 03/24/2023 0 05/13/2023 Assessment & Plan (05/02/2023 1:42 PM CDT): Continue Lasix 40mg BID. Monitor. Respiratory status stable. Acute blood loss anemia 03/02/2023 07/0 04/2023 Diabetes insipidus 03/02/2023 3 Sepsis due to methicillin re sistant Staphylococcus aureus (MRSA) with acute renal failure and tubular necrosis without septic shock 02/25/2023 05/12/2023 Nephrotic syndrome 02/22/2023 3 High anion gap metabolic acidosis 02/16/2023 05/12/2023 Leukocytosis 02/16/2023 05/12/2023 MRSA bacteremia 02/16/2023 05/12/2023 Urinary retention 02/16/2023 05/12/2023 Diabetic ketoacidosis withou t coma associated with type 2 diabetes mellitus 02/14/2023 03/25/2023 Acute kidney injury 01/05/2018 05/12/20 23 Neuropathy 01/05/2018 05/02/2023 Assessment & Plan (04/28/2023 4:00 PM CDT): Cont gabapentin Cont oxycodone, rx sent to pharm ST elevation myocardial infarction (STEMI) 01/05/2018 03/25/2023 Assessment & Plan (01/05/2018 11:39 AM KOSHER BUTCHER): Troponin peaked at 35.95. EKG as noted above. Cardiology has been consulted and pt is now s/p cardiac catheterization with possible plans to re-enter for further intervention. ASA, Brillinta, Bb, Sony, and Statin ordered. Continue with telemetry. Smoking addiction 01/05/2018 03/25/2023 Assessment & Plan (01/05/2018 11:42 AM KOSHER BUTCHER): Counseled on cessation. Morbid obesity 01/05/2018 03/25/2023 Assessment & Plan (01/05/2018 11:44 AM KOSHER BUTCHER): Pt reports a weight loss of 30+ pounds but has recently began to gain the weight back. Encouraged to begin a weight loss regimen. 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 04/28/2023 Immunizations Immunization Administration Dates Next Due Tdap 01/29/2024 Social History Tobacco Use Types Packs/Day Years Used Date Smoking Tobacco: Former Cigars Q uit: 2017 Smokeless Tobacco: Never Tobacco Cessation:Counseling Given: Not Answered Alcohol Use Standard Drinks/Week Comments Yes 0 (1 standard drink = 0.6 oz pur e alcohol) maybe 1x/year Social Connection and Isolation Panel [NHANES] A nswer Date Recorded In a typical week, how many times do you talk on the phone with family, friends, or neighbors? Three times a week 07/28/20 How often do you get togethe r with friends or relatives? Three times a week 07/28/2023 How often do you attend chur or voodoo services? Never 07/28/2023 Do you belong to any clubs o r organizations such as presybeterian groups, unions, fraternal or athletic groups, or school groups? Yes 07/28/2023 How often do you attend meet ings of the clubs or organizations you belong to? 1 to 4 times per year 07/28/2023 Are you , , di vorced, , never , or living with a partner? 07/28/2023 AUDIT-C Answer Date Recorded Q1: How often do you have a drink containing alcohol? Never 07/12/2023 Q2: How many drinks containi ng alcohol do you have on a typical day when you are drinking? Patient does not drink Q3: How often do you have si x or more drinks on one occasion? Never 07/12/2023 Overall Financial Resource Strain (CARDIA) Answe r Date Recorded How hard is it for you to pa y for the very basics like food, housing, medical care, and heating? Not very hard 07/28/2023 Hunger Vital Sign Answer Date Recorded Within the past 12 months, y ou worried that your food would run out before you got the money to buy more. Never true 07/28/20 23 Within the past 12 months, t he food you bought just didn't last and you didn't have money to get more. Never true 07/28/2023 PRAPARE - Transportation Answer Date Re corded In the past 12 months, has l ack of transportation kept you from medical appointments or from getting medications? No 07/09 In the past 12 months, has l ack of transportation kept you from meetings, work, or from getting things needed for daily living? No 07/28/2023 Housing Stability Vital Sign Answer Sebas e Recorded In the last 12 months, was t here a time when you were not able to pay the mortgage or rent on time? No 07/28/2023 In the last 12 months, how many places have you lived? 1 07/28/2023 In the last 12 months, was t here a time when you did not have a steady place to sleep or slept in a custodial (including now)? No 07/28/2023 Personal Safety Answer Date Recorded Have you ever been in or are you currently in a harmful physical or emotional relationship or is someone making you feel afraid or unsafe? Denies 01/29/2024 Sex and Gender Information Value Date Recorded Sex Assigned at Not on file Legal Sex Male 3:19 AM KOSHER BUTCHER Gender Identity Not on file Sexual Orientation Not on file Last Filed Vital Signs Vital Sign Reading Time Taken Comments Blood Pressure 92/60 08/08/2024 10:33 AM CDT Pulse 98 08/08/2024 10:33 AM CDT Temperature 36.8 C (98.3 F) 01/29/2024 7:04 PM CDT Respiratory Rate 16 01/29/2024 7:04 PM CDT Oxygen Saturation 96% 08/08/2024 10:33 AM CDT Inhaled Oxygen Concentration - - Weight 108.9 kg (240 lb) 08/08/2024 10:33 AM CDT Height 172.7 cm (5' 8 ) 08/08/2024 10:33 AM CDT Body Mass Index 36.49 08/08/2024 10:33 AM CDT Plan of Treatment Not on file Medical Devices Implanted Type Area Seamstress Fitter Device Identifier Shelf Expiration Date Model / Serial / Lot [employer] Zbigniew [id number] Synergy 2.5mm 24mm 144cm Radiopaque 1 Access Port Inflation Lumen - [id number] Implanted:Qty: 1 on 02/22/2019 by Brock Carr MD at [facility] Stent N/A: Heart [employer] Zbigniew 11/13/2020 [id number] / / [id number] [employer]bigniew [id number] Synergy 3mm 20mm 144cm Radiopaque 1 Access Port Inflation Lumen - [id number] Implanted:Qty: 1 on 02/22/2019 by Brock Carr MD at [facility] Stent N/A: Heart [employer] Zbigniew 11/08/2020 [id number] / / [id number] Insulin Pump Abdomen System Coronary Stent Synergy Pebax Everolimus Eluting Chilkat Chromium Plga L16 Mm L144 Cm Od2.5 Mm Radiopaque 1 Access Port Inflation Lumen Accepts .014 In Guidewire - [id number] Implanted:Qty: 1 on 01/04/2018 by Ofelia Ruiz MD at [facility] [employer] Zbigniew 09/19/2018 [id number] / / [id number] System Coronary Stent Synergy Pebax Everolimus Eluting Chilkat Chromium Plga L20 Mm L144 Cm Od2.5 Mm Radiopaque 1 Access Port Inflation Lumen Accepts .014 In Guidewire - [id number] Implanted:Qty: 1 on 01/04/2018 by Ofelia Ruiz MD at [facility] [employer] 10/18/2018 [id number] / / [id number] Daig Zbigniew/[employer] [id number] Angio-Seal Vip Bondek-Plus 6fr .035in 70cm Hemostatic Latex Free - [id number] Implanted:Qty: 1 on 02/22/2019 by Brock Carr MD at [facility] Right: Groin Daig Zbigniew/[employer] 10/06/2019 [id number] / / [id number] Procedures Procedure Name Priority Date/Time Associated Diagnosis Comments POCT LIPID PANEL Routine 08/08/2024 10:5 4 AM CDT Lipid screening EGFR Routine 07/29/2023 7:15 AM CDT HEMOGLOBIN A1C Routine 05/02/2023 8:[address] ABDOMEN PELVIS WO CONTRAST ED 02/14/2023 10:33 AM CDT ALBUMIN CREATININE RATIO, URINE Routine 11/06/2019 7:26 AM KOSHER BUTCHER from Last 3 Months or Most Recently Relevant to Health Maintenance Results * POCT lipid panel (08/08/2024 10:54 AM CDT) Cholesterol, POC 154 mg/dL HDL, POC 29 mg/dL Triglycerides, POC 115 mg/dL LDL Cholesterol POC 102 mg/dL Chol/HDL Ratio, POC 3.6 Non-HDL Cholesterol, POC 125 mg/dL Cholesterol Total, POC 154 mg/dL Capillary blood 08/08/2024 1 0:54 AM CDT Brock Carr MD POINT OF CARE TEST ORDERABLES Fi nal Result * eGFR (07/29/2023 7:15 AM CDT) eGFR 56 mL/min/1. 73 m2 RAHUL Comment: Interpretive Data Reference Interval Normal >/= 90 mL/min/1.73m2 Mildly decreased* 60 - 89 mL/min/1.73m2 Mildly to moderately decreased 45 - 59 mL/min/1.73m2 Moderately to severely decreased 30 - 44 mL/min/1.73m2 Severely decreased 15 - 29 mL/min/1.73m2 Kidney Failure < 15 mL/min/1.73m2 *Relative to young adult level Estimated glomerular filtration rate is determined by the 2020 CKD-EPI equation recommended by the National Kidney Foundation (A Unifying Approach to GFR Estimation: Recommendations of the NKF-ASK Task Force on Reassessing the Inclusion of Race in Diagnosing Kidney Disease, JASN 2020). The CKD-EPI equation should not be used for patients with unstable renal function and has not been validated in children and those over 70. Current interpretive data was last reviewed 2021. Blood 07/29/2023 7:15 AM CDT 07/29/2023 7:27 AM CDT Martha Hong MD LAB BLOOD ORDERABLES Stephanie l Result [address] Department [place] [address] * (ABNORMAL) Hemoglobin A1c (05/02/2023 8:35 AM CDT) Hgb A1C 5.7(H) 4.0 - 5.6 % RAHUL Comment:Testing performed by : [address] [address] Estimated Average Glucose 117 mg/dL RAHUL Comment: The ADA recommends reporting an estimated Average Glucose (eAG) with all Hemoglobin A1c results using the equation derived from a study of 507 normal and diabetic adults. Minority populations were underrepresented and children were not included. (Diabetes Care 31:2923-1420, 2008). The eAG is not equivalent to a fasting glucose. Testing performed by: [address] [address] Blood 05/02/2023 8:35 AM CDT 05/02/2023 9:24 AM CDT us Bennie Oliveira MD LAB BLOOD ORDERABLES Final R esult [facility] [address] [facility] Department [place] [address] * CT Abdomen Pelvis WO Contrast (02/14/2023 10:33 AM CDT) Anatomical Region Laterality Modality Body N/A Computed Tomogra phy 02/14/2023 10:4 7 AM CDT Narrative 02/14/2023 10:54 AM CDT EXAM DESCRIPTION: CT ABDOMEN PELVIS WO CONTRAST REASON FOR STUDY: Sepsis, sepsis, ?UTI 67 y.o. male presenting to the ED c/o bilateral leg weakness. Patient states urinary symptoms started 10 or 11 days ago. He states difficulty holding his urine and low back pain bilateral. He states history of frequent UTI and kidney infections with similar pain. He describes urinary urgency, but denies inability to feel need to urinate. He states history of neuropathy, but denies any new numbness in his genitals or legs. Unable to walk due to weakness. Hx: HTN, DM2 TECHNIQUE: CT scan of the abdomen and pelvis performed without intravenous and without oral contrast using helical scanning technique. Reconstructed coronal and sagittal MPR images reviewed. All images stored on PACS. Automated exposure control was used as a dose optimization technique for this examination. COMPARISON: None REFERENCE: Per ACR white paper recommendations, unless otherwise specified no follow-up imaging is recommended for incidental renal and adrenal lesions per consensus recommendations based on imaging criteria. Further lab evaluation could be pursued based on clinical findings. FINDINGS: The sensitivity for detection of visceral lesions is diminished without the use of intravenous contrast. LOWER CHEST: No significant pulmonary abnormalities. No effusion. Bilateral dependent subsegmental atelectasis. LIVER: Normal size. No identified cystic or solid masses. GALLBLADDER: No stones identified. No wall thickening or inflammatory changes. BILE DUCTS: No intrahepatic or extrahepatic ductal dilatation. SPLEEN: Normal size. No focal lesions. PANCREAS: No identified cystic or solid masses. No significant calcifications. No adjacent inflammation or peripancreatic fluid collections. Pancreatic duct not dilated. ADRENALS: Normal. KIDNEYS/URINARY TRACT: No identified significant cystic or solid masses. No stones. Nonspecific bilateral perinephric stranding. No hydronephrosis or hydroureter. Circumferential thickening of the bladder wall with adjacent inflammatory fat stranding. This thickening appears slightly asymmetric, more prominent along the posterior and left lateral aspect. GI: No dilated bowel loops. No obvious wall thickening. Normal appendix. Colonic diverticulosis. No evidence of acute diverticulitis. PERITONEUM: No ascites or free air. RETROPERITONEUM: No mass or adenopathy. REPRODUCTIVE: No significant abnormality. VASCULATURE: No abdominal aortic aneurysm. MUSCULOSKELETAL: No significant abnormality. OTHER: No other abnormality. IMPRESSION: 1. Bladder wall thickening, most prominently involving the posterior and left lateral aspect, with adjacent inflammatory fat stranding, suggestive of cystitis. Given the asymmetric nature of the thickening, however, malignancy can not be entirely excluded. 2. Nonspecific bilateral perinephric stranding. Otherwise no evidence of acute pyelonephritis within the limits of this noncontrast enhanced exam. No hydroureteronephrosis. THIS IS AN ELECTRONICALLY VERIFIED FINAL REPORT 02/14/2023 10:54 AM - Electronically signed by Harrison Islas M.D. KR T: Report ID: [id number] Reading Location: [id number] Procedure Note Harrison Islas MD - 02/14/2023 EXAM DESCRIPTION: CT ABDOMEN PELVIS WO CONTRAST REASON FOR STUDY: Sepsis, sepsis, ?UTI 67 y.o. male presenting to the ED c/o bilateral leg weakness. Patientstates urinary symptoms started 10 or 11 days ago. He states difficulty holdinghis urine and low back pain bilateral. He states history of frequent UTI and kidney infections with similar pain. He describes urinary urgency, but denies inability to feel need to urinate. He states history ofneuropathy, but denies any new numbness in his genitals or legs. Unable to walk dueto weakness. Hx: HTN, DM2 TECHNIQUE: CT scan of the abdomen and pelvis performed without intravenousand without oral contrast using helical scanning technique. Reconstructed coronal and sagittal MPR images reviewed. All images stored on PACS. Automated exposure control was used as a dose optimization technique forthis examination. COMPARISON: None REFERENCE: Per ACR white paper recommendations, unless otherwise specifiedno follow-up imaging is recommended for incidental renal and adrenal lesionsper consensus recommendations based on imaging criteria. Further labevaluation could be pursued based on clinical findings. FINDINGS: The sensitivity for detection of visceral lesions is diminished without the use of intravenous contrast. LOWER CHEST: No significant pulmonary abnormalities. No effusion. Bilateral dependent subsegmental atelectasis. LIVER: Normal size. No identified cystic or solid masses. GALLBLADDER: No stones identified. No wall thickening or inflammatory changes. BILE DUCTS: No intrahepatic or extrahepatic ductal dilatation. SPLEEN: Normal size. No focal lesions. PANCREAS: No identified cystic or solid masses. No significant calcifications. No adjacent inflammation or peripancreatic fluidcollections. Pancreatic duct not dilated. ADRENALS: Normal. KIDNEYS/URINARY TRACT: No identified significant cystic or solid masses.No stones. Nonspecific bilateral perinephric stranding. No hydronephrosisor hydroureter. Circumferential thickening of the bladder wall withadjacent inflammatory fat stranding. This thickening appears slightly asymmetric, more prominent along the posterior and left lateral aspect. GI: No dilated bowel loops. No obvious wall thickening. Normalappendix. Colonic diverticulosis. No evidence of acute diverticulitis. PERITONEUM: No ascites or free air. RETROPERITONEUM: No mass or adenopathy. REPRODUCTIVE: No significant abnormality. VASCULATURE: No abdominal aortic aneurysm. MUSCULOSKELETAL: No significant abnormality. OTHER: No other abnormality. IMPRESSION: 1. Bladder wall thickening, most prominently involving the posterior and left lateral aspect, with adjacent inflammatory fat stranding, suggestiveof cystitis. Given the asymmetric nature of the thickening, however,malignancy can not be entirely excluded. 2. Nonspecific bilateral perinephric stranding. Otherwise no evidenceof acute pyelonephritis within the limits of this noncontrast enhanced exam.No hydroureteronephrosis. THIS IS AN ELECTRONICALLY VERIFIED FINAL REPORT 02/14/2023 10:54 AM - Electronically signed by Harrison Islas M.D. T: Report ID: [id number] Reading Location: [place] [address] [address]ico Roy [address] IMG [address] PROCEDURES Final Res ult * (ABNORMAL) Albumin Creatinine Ratio, Urine (11/06/2019 7:26 AM KOSHER BUTCHER) Creatinine, ur 57 20 - 320 mg/dL [facility] [place] Microalbumin, ur 6.4 See Note: mg/dL [facility] [place] Comment: Reference Range: Reference Range Not established Microalbumin/creat ratio 112(H) <30 mcg/mg creat [facility] [place] Comment: The ADA defines abnormalities in albumin excretion as follows: Category Result (mcg/mg creatinine) Normal <30 Microalbuminuria 30-299 Clinical albuminuria > OR = 300 The ADA recommends that at least two of three specimens collected within a 3-6 month period be abnormal before considering a patient to be within a diagnostic category. 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 07/17/2023 MDR gram neg/ESBL 07/17/2023 07/17/2023 [place] [address] [facility] MEDICARE [facility] MEDICARE [facility] Advance Directives For more information, please contact: [phone] Documents on File Type Date Recorded Patient Bookkeeping Clerk Expl anation ADVANCE DIRECTIVE 05/02/2023 11:29 AM POLS T - Phys Order for PT Preferences ADVANCE DIRECTIVE 04/27/2023 12:38 PM POLS T - Phys Order for PT Preferences * Full Code (Latest Code Status on File) Date Activated Date Inactivated Comments 07/28/2023 7:35 AM 07/29/2023 11:45 PM * Full Code Date Activated Date Inactivated Comments 07/28/2023 5:13 AM 07/28/2023 7:35 AM * LIMITED - No CPR Date Activated Date Inactivated Comments 07/17/2023 2:08 PM 07/19/2023 9:58 PM Question Answer Comments Provide aggressive medical m anagement before a full cardiopulmonary arrest occurs. Use antibiotics, IV Fluids, and medical treatment unless specifically selected below: No intubation * Full Code Date Activated Date Inactivated Comments 07/17/2023 1:51 PM 07/17/2023 2:08 PM * Full Code Date Activated Date Inactivated Comments 07/12/2023 8:26 AM 07/13/2023 4:49 AM Care Teams Cruise Agent Relationship Specialty Start Date End Date Jaya Dailey MD PCP - General Family Medicine 01/18/19 Abelardo Gastelum MD [facility] DEPT ORTHOPEDIC [place]ERY [place] [address] Orthopedic Surgery 05/09/23
--- OUTSIDE RECORDS SUMMARY | 2025-02-04 16:53 | XMS_ITS | Clinical Summary ---
Author Organization [facility] Address [address] [place] [id number] Care Team Providers Care Bobbin Collector Name Role Phone Unavailable Primary Care Provider Unavailabl e Social History Tobacco Use Types Packs/Day Years Used Date Smoking Tobacco: Never Assessed Sex and Gender Information Value Date Recorded Sex Assigned at Not on file Legal Sex Male 7:32 PM CDT Gender Identity Not on file Sexual Orientation Not on file Plan of Treatment Health Maintenance Due Date Last Done Comments Colorectal Cancer Screening Colonoscopy (10 Years) 1957 Hepatitis C 1975 DTaP, Tdap and Td Vaccines ( 1 - Tdap) 1976 Zoster Vaccines (1 of 2) 2007 Pneumococcal Vaccine: 65+ Ye ars (1 of 1 - PCV) 2022 COVID-19 Vaccine (1 - 2023-2 5 season) 2024 Influenza Adult (#1) 2024 RSV Immunization or 60+ Years (1 - 1-dose 75+ series) 2032 Meningococcal B Vaccine Aged Out No l onger eligible based on patient's age to complete this topic Meningococcal Vaccine Aged Out No gabino lacie eligible based on patient's age to complete this topic RSV Immunizations Under 20 Months Aged Out No longer eligible based on patient's age to complete this topic
--- OUTSIDE RECORDS SUMMARY | 2025-02-04 16:53 | XMS_ITS | Encounter Summary ---
Author Organization [facility] Healthcare Address [address] [place] [address] Care Team Providers Care Coal Chute Worker Name Role Phone Jaya Dailey MD Primary Care Provider + [phone] Abelardo Gastelum MD Unavailable [phone] Encounter Details Date Type Department Care Team (Late st Contact Info) Description 08/09/2023 Telephone [facility] Radiology [address] [place] [address] Sheree Vasquez RN Social History Tobacco Use Types Packs/Day Years Used Date Smoking Tobacco: Former Cigars Q uit: 2017 Smokeless Tobacco: Never Alcohol Use Standard Drinks/Week Comments Yes 0 [...] 07/28/2023 How often do you attend chur ch or amish services? Never 07/28/2023 Do you belong to any clubs o r organizations such as baptism groups, unions, fraternal or athletic groups, or [...] place to sleep or slept in a residential (including now)? No 07/28/2023 Personal Safety Answer Date Recorded Have you ever been in or are you currently in a harmful physical or emotional relationship or is someone making you feel afraid or unsafe? 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
--- OUTSIDE RECORDS SUMMARY | 2025-02-04 16:53 | XMS_ITS | Clinical Summary ---
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 Gender Identity Not on file Sexual Orientation Not on file Plan of Treatment Health Maintenance Due Date Last Done Comments Hepatitis C Virus (HCV) Screening 1955 TdaP Immunization 1955 Colonoscopy 2002 Colorectal Cancer Screening 2002 Cologuard 2007 Immunochemical Fecal Occult Blood 2007 Pneumococcal Immunization (5 0+ years) (1 of 1 - PCV) 2007 Zoster Immunization (1 of 2) 2007 PSA Discussion 2012 Influenza Immunization (#1) 2024 SARS-COV-2 Immunization ( - season) 2024 Respiratory Syncytial Virus (RSV) Immunization (Adult) (1 - 1-dose 75+ series) 2032 Hepatitis B Immunization Aged Out No longer eligible based on patient's age to complete this topic Meningococcal Immunization (ACWY) Aged Out No longer eligible based on patient's age to complete this topic Rotavirus Immunization Aged Out No lo nger eligible based on patient's age to complete this topic
--- OUTSIDE RECORDS SUMMARY | 2025-02-04 16:53 | XMS_ITS | Clinical Summary ---
Author Organization [facility] Lisy Diaz Address [address] [place] [address] Care Team Providers Care Ppap Coordinator Name Role Phone Jaya Dailey MD Primary Care Provider [phone] Allergies No known active allergies Medications aspirin (ECOTRIN EC) 81 mg Tablet, Delayed Release (E.C.) aspirin 81 mg tablet,delayed release Take 1 tablet every day by oral route. 12/12/19 21 Active bumetanide (BUMEX) 1 mg tablet bumetanide 1 mg tablet TAKE 1 TABLET BY MOUTH DAILY 10/10/20 20 Active cholecalcifero l 1,250 mcg (50,000 unit) Capsule cholecalciferol (vitamin D3) 1,250 mcg (50,000 unit) capsule TAKE 1 CAPSULE BY MOUTH EVERY WEEK 07/08/20 21 Active ferrous sulfate 325 mg (65 mg iron) Tablet, Delayed Release (E.C.) ferrous sulfate 325 mg (65 mg iron) tablet,delayed release TAKE 1 TABLET BY MOUTH EVERY DAY 07/09/20 21 Active gabapentin (NEURONTIN) 300 mg capsule Take 800 mg by mouth 2 times daily. Active insulin lispro (HumaLOG) 100 unit/mL cartridge Inject by subcutaneous injection. Active metFORMIN (GLUCOPHAGE XR) 500 mg Extended Release 24 hour tablet metformin ER 500 mg tablet,extended release 24 hr TAKE 1 TABLET BY MOUTH TWICE DAILY WITH MEALS 08/10/20 21 Active metoprolol tartrate (LOPRESSOR) 25 mg tablet metoprolol tartrate 25 mg tablet 07/21/20 20 Active sertraline (ZOLOFT) 100 mg tablet sertraline 100 mg tablet TAKE 2 TABLETS BY MOUTH DAILY 07/21/20 20 Active metOLazone (ZAROXOLYN) 5 mg tablet Take 5 mg by mouth daily. Active Active Problems No known active problems Family History Medical History Relation Name Comments Lung Cancer Brother 1 Heart Attack Brother 2 No Known Problems Brother 3 No Known Problems Daughter Leukemia Father No Known Problems Mother No Known Problems Son Relation Name Status Comments Brother 1 Alive Brother 2 Alive Brother 3 Alive Daughter Father Mother Son Alive Social History Tobacco Use Types Packs/Day Years Used Date Smoking Tobacco: Former Cigars Q uit: 12/06/2022 Smokeless Tobacco: Never Tobacco Cessation:Counseling Given: Not Answered Alcohol Use Standard Drinks/Week Comments Yes 1 (1 standard drink = 0.6 oz pur e alcohol) Sex and Gender Information Value Date Recorded Sex Assigned at Not on file Legal Sex Male 3:40 PM MANAGER DATA CENTER Gender Identity Not on file Sexual Orientation Not on file Last Filed Vital Signs Vital Sign Reading Time Taken Comments Blood Pressure 133/49 01/03/2023 2:03 PM MANAGER DATA CENTER Pulse 73 01/03/2023 2:34 PM [employer]NA[employer] Temperature 36.4 C (97.6 F) 01/03/2023 2:03 PM MANAGER [employer] CENTER Respiratory Rate 10 01/03/2023 2:03 PM MANAGER DATA CENTER Oxygen Saturation 98% 01/03/2023 2:03 PM MANAGER DATA CENTER Inhaled Oxygen Concentration - - Weight 181.4 kg (400 lb) 01/03/2023 2:03 PM MANAGER DATA CENTER Height 176.8 cm (5' 9.6 ) 01/03/2023 2:03 PM MANAGER DATA CENTER Body Mass Index 58.06 01/03/2023 2:03 PM MANAGER DATA CENTER Plan of Treatment Health Maintenance Due Date Last Done Comments DIABETES ANNUAL FOOT EXAM 1975 DIABETES ANNUAL RETINAL EXAM 1975 DIABETES MICROALBUMIN ANNUAL SCREEN 1975 LDL CHOLESTEROL ANNUAL 1975 DTAP/TDAP/TD VACCINES (1 - Tdap) 1976 PNEUMOCOCCAL VACCINE 50+ YEARS (1 of 2 - PCV) 08/25/19 76 COLORECTAL SCREENING 2002 Colorectal Cancer Screening 2002 FIT-DNA Q 3 years 2002 FIT/FOBT Q 1 year 2002 Flex Sig/CT Colonography Q 5 years 2002 ZOSTER VACCINE (1 of 2) 2007 RSV VACCINE (60+ or ) (1 - Risk 60-74 years 1-dose series) 2017 DIABETES HBA1C Q 6 MONTHS 08/18/2023 02/16/2023 INFLUENZA VACCINE (#1) 2024 Insurance MEDICARE PART A AND B FORMERLY [facility] MEDICARE PART A AND B Care Teams Ppap Coordinator Relationship Specialty Start Date End Date Jaya Dailey MD [address] [place] [address] PCP - General Family Practice 01/03/23
--- OUTSIDE RECORDS SUMMARY | 2025-02-04 16:53 | XMS_ITS | Clinical Summary ---
Author Organization [facility] D Address [address] [place] [address] Care Team Providers Care Hydrographer Name Role Phone Jaya Dailey MD Primary Care Provider [phone] Abelardo Gastelum MD Unavailable Allergies No known active allergies Medications acetaminophen [...] 1 tablet (25 mcg total) by mouth gas tender before breakfast Given at 6 am 30 [...] 09/23/2023 Assessment & Plan (09/23/2023 4:10 PM HOUSEKEEPING CLEANER): By hx suspect more gas/bloating Consider constipation [...] 08/01 Assessment & Plan (09/23/2023 4:09 PM HOUSEKEEPING CLEANER): Wound care following Still wrapped No active infection stable Assessment & Plan (08/11/2023 8:25 PM CDT): Wc following w tx in place Assessment & Plan (08/05/2023 4:24 PM CDT): Dw wc nurse, finishing up doxy abt for this, cont wc Assessment & Plan (08/01/2023 7:44 PM CDT): Wc nurse seeing pt w me Cont wound care Finish up augmentin and other po abt Neurogenic bladder 08/01/2023 Assessment & Plan (09/23/2023 4:09 PM HOUSEKEEPING CLEANER): Multifactorial Also obstructive Cont murillo Assessment & Plan (08/11/2023 8:25 PM CDT): Has catheter Staff to arrange urology fu for xchg Assessment & Plan (08/05/2023 4:24 PM CDT): Has murillo in place, hx of SAMANTA, unlikely to improve Assessment & Plan (08/01/2023 7:45 PM CDT): Cont spc Rt samanta Has 10 uro appt Encounter for examination for admission to [facility] 07/28/2023 Chronic atrial fibrillation 07/28/2023 Assessment [...] (07/08/2023 2:05 PM CDT): Fu with IR /. Assessment & Plan (06/27/2023 10:56 AM CDT): IR fu 07/12. Continue suprapubic cath care. Assessment & Plan (06/21/2023 11:58 AM CDT): Patient has fu with IR 07/12. At this appt IR will upsize SPT & he will fu with Dr. Mladonado moving forward. Today nursng reporting warmth, erythema, [...] to obtain cardiac clearance but patients primary customs house broker will not give d/t not seeing in [...] 04/28/2023 Assessment & Plan (11/16/2023 4:16 PM HOUSEKEEPING CLEANER): Multifactorial related to chronic illness and cauda [...] 03/25/2023 Assessment & Plan (11/16/2023 4:16 PM HOUSEKEEPING CLEANER): Currently rate controlled. Continue metoprolol. Discussed with [...] 02/16/2023 Assessment & Plan (11/16/2023 4:16 PM HOUSEKEEPING CLEANER): Currently compensated. Continue metolazone metoprolol. Assessment & [...] Has fu with Dr. Al this week. Martha PT/OT. Assessment & Plan (07/04/2023 2:40 PM CDT): Was able to gaming worker parallal bars with tx. Slow but consistent progress. Continue to [facility]. Assessment & Plan (06/27/2023 11:00 AM CDT): [...] (01/30/2019): Added automatically from request for surgery [id number] Diabetic polyneuropathy asso ciated with type 2 [...] lopressor Assessment & Plan (01/05/2018 11:41 AM HOUSEKEEPING CLEANER): Controlled. Continue with metoprolol. Monitor blood pressure [...] lispro Assessment & Plan (01/05/2018 11:42 AM HOUSEKEEPING CLEANER): Insulin pump being held for now. SSI [...] CDT): Brought this to the attention of home planning consultant salesperson Halina who will ask for an air [...] 03/25/2023 Assessment & Plan (01/05/2018 11:39 AM HOUSEKEEPING CLEANER): Troponin peaked at 35.95. EKG as noted above. Cardiology has been consulted and pt is now s/p cardiac catheterization with possible plans to re-enter for further intervention. ASA, Brillinta, Bb, Sony, and Statin ordered. Continue with telemetry. Smoking addiction 01/05/2018 03/25/2023 Assessment & Plan (01/05/2018 11:42 AM HOUSEKEEPING CLEANER): Counseled on cessation. Morbid obesity 01/05/2018 03/25/2023 Assessment & Plan (01/05/2018 11:44 AM HOUSEKEEPING CLEANER): Pt reports a weight loss of 30+ pounds but has recently began to gain the weight back. Encouraged to begin a weight loss regimen. 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 04/28/2023 Encounters Date Type Department Care Team Description 12/03/2024 Telephone [facility] [address] [place] [address] [address] [place] [address] Lupe Pretty RMA from Last 3 Months Immunizations Immunization Administration Dates Next Due Tdap 01/29/2024 Surgical History Surgery Date Site/Laterality Comments KNEE ARTHROSCOPY Left MOLE REMOVAL SKIN GRAFT cover ankle US GUIDED THORACENTESIS 03/28/2023 N/A CT CHEST TUBE INSERTION LEFT 04/09/2023 N/A 02/2023 see epic notes OTHER SURGICAL HISTORY 04/20/2023 Right VIDEO-ASSISTED THORACIC SURGERY, DECORTICATION OF LOCULATED PLEURAL EFFUSION, BRONCHOSCOPY CYSTOSCOPY 04/20/2023 FLEXIBLE CYSTOSCOPY WITH CATHETER EXCHANGE ESOPHAGOGASTRODUODENOSCOPY 03/02/2023 LAMINECTOMY 02/17/2023 L4-S1 laminectomies and decompression CORONARY ANGIOPLASTY WITH ST ENT PLACEMENT 11/07/2018 - 11/06/2019 and 2017 SHOULDER ARTHROSCOPY Left PORT PLACEMENT CHEST >5 YEARS 03/07/2023 N/A FLUORO GUIDED ASPIRATION OR INJECTION LARGE JOINT BILATERAL 02/24/2023 Bilateral Medical History Medical History Date Comments HTN (hypertension) Sleep apnea SOB (shortness of breath) on exertion Hyperlipidemia Myocardial infarction (HCC) Type 2 diabetes mellitus (HCC) Anxiety Depression Arthritis Weakness of both legs 04/28/2023 Murillo catheter present 04/28/2023 Atrial fibrillation (HCC) CAD (coronary artery disease) STEMI (ST elevation myocardi al infarction) (HCC) Diastolic heart failure (HCC) Nonsustained ventricular tac hycardia (HCC) Diabetes mellitus (HCC) CKD (chronic kidney disease) , stage III (HCC) Chronic respiratory failure with hypoxia (HCC) GERD (gastroesophageal reflux disease) Polyneuropathy due to type 2 diabetes mellitus (HCC) Neurogenic bladder Open wound of left heel see pics in epic from end of april 2023 Polyneuropathy Encounter for wound care 05/23/23 patient has puncture wound right lateral chest and DTI left heel per Ra[place] [facility] [place] . Pneumonia 02/2023 see noted in epi c Infection requiring contact isolation precautions 02/15/23 by Blood culture Bl ood Peripheral (Collected 02/14/23) Last indicated by: MRSA Only (Staphylococcs aureus) PCR Nasal (Collected 03/25/23) Onset date: 02/14/23 requires contact isolation due to the MRSA positive result in March 2023. We can try to get him off after 6months from positive test date. Family History Medical History Relation Name Comments Diabetes Father Hypertension Father Leukemia Father Kidney failure Mother Relation Name Status Comments Father Mother Social History Tobacco Use Types Packs/Day Years [...] often do you attend chur ch or caodaism services? Never 07/28/2023 Do you belong to any clubs o r organizations such as zoroastrianism groups, unions, fraternal or athletic groups, or [...] place to sleep or slept in a senior care (including now)? No 07/28/2023 Personal Safety Answer Date Recorded Have you ever been in or are you currently in a harmful physical or emotional relationship or is someone making you feel afraid or unsafe? Denies 01/29/2024 Sex and Gender Information Value Date Recorded Sex Assigned at Not on file Legal Sex Male 3:19 AM HOUSEKEEPING CLEANER Gender Identity Not on file Sexual Orientation Not on file Obstetrics History Last Filed Vital Signs Vital Sign Reading [...] 08/08/2024 10:33 AM CDT Plan of Treatment Health Maintenance Due Date Last Done Comments Colon Cancer Screening-Colonoscopy 1957 Depression Screening 1957 Hepatitis C Screening 1957 Prostate Cancer Screening-PSA 1957 Dilated Eye Exam 1957 Foot Exam 1957 Hepatitis B Screening 1975 Pneumococcal vaccine 65+ (1 of 2 - PCV) 1976 Zoster Vaccine (1 of 2) 2007 Albumin Creatinine Ratio, Urine 11/06/2020 9 Well Visit 65+ 2022 Hemoglobin A1C 11/01/2023 05/02/2023, 02/05, 02/14/2023, Additional history exists Covid-19 Vaccine (4 - 2023-2 5 season) 2024 11/13/2021, 02/09/2021, 01/19/2021 Influenza Vaccine (#1) 2024 eGFR 07/29/2024 07/29/2023, 07/09, 07/18/2023, Additional history exists Fall Risk Assessment 08/12/2024 08/12/2023 Lipid Panel 08/08/2025 08/08/2024, 03/08, 06/22/2021, Additional history exists DTaP/Tdap/Td Vaccine (2 - Td or Tdap) 01/28/2034 01/29/2024 Abdominal Aortic Aneurysm (A AA) Screen Completed 02/14/2023 Medical Devices Implanted Type Area Credit Assessment Analyst Device Identifier Shelf Expiration Date Model / Serial / Lot [employer]bigniew [id number] Synergy 2.5mm 24mm 144cm Radiopaque 1 Access Port Inflation Lumen - [id number] Implanted:Qty: 1 on 02/22/2019 by Brock Carr MD at [facility] Stent N/A: Heart [employer] Zbigniew 11/13/2020 [id number] / / [id number] [employer] [id number] Synergy 3mm 20mm 144cm Radiopaque 1 Access Port Inflation Lumen - [id number] Implanted:Qty: 1 on 02/22/2019 by Brock Carr MD at [facility] Stent N/A: Heart [employer]igniew 11/08/2020 [id number] / / [id number] Insulin Pump Abdomen System Coronary Stent Synergy Pebax Everolimus Eluting [place] Chromium Plga L16 Mm L144 Cm Od2.5 Mm Radiopaque 1 Access Port Inflation Lumen Accepts .014 In Guidewire - [id number] Implanted:Qty: 1 on 01/04/2018 by Ofelia Ruiz MD at [facility] [employer] Zbigniew 09/19/2018 [id number] / / [id number] System Coronary Stent Synergy Pebax Everolimus Eluting [place] Chromium Plga L20 Mm L144 Cm Od2.5 Mm Radiopaque 1 Access Port Inflation Lumen Accepts .014 In Guidewire - [id number] Implanted:Qty: 1 on 01/04/2018 by Ofelia Ruiz MD at [facility] [employer] Zbigniew 10/18/2018 [id number] / / [id number] Daig Zbigniew/[employer] [id number] Angio-Seal Vip [place]k-Plus 6fr .035in 70cm Hemostatic Latex Free - [id number] Implanted:Qty: 1 on 02/22/2019 by Brock Carr MD at [facility] Right: Groin Daig Zbigniew/[employer] 10/06/2019 [id number] / / [id number] Procedures Procedure Name Priority Date/Time Associated Diagnosis Comments POCT LIPID PANEL Routine 08/08/2024 10:5 4 AM CDT Lipid screening EGFR Routine 07/29/2023 7:15 AM CDT HEMOGLOBIN A1C Routine 05/02/2023 8:[address] ABDOMEN PELVIS WO CONTRAST ED 02/14/2023 10:33 AM CDT ALBUMIN CREATININE RATIO, URINE Routine 11/06/2019 7:26 AM HOUSEKEEPING CLEANER from Last 3 Months or Most Recently [...] CDT) eGFR 56 mL/min/1. 73 m2 RAHUL PERLA Comment: Interpretive Data Reference Interval Normal >/= [...] MD LAB BLOOD ORDERABLES Stephanie l Result Performing Organization Address [facility] Co de Phone Number RAHUL [address] [address] * (ABNORMAL) Hemoglobin A1c (05/02/2023 8:35 AM CDT) Hgb A1C 5.7(H) 4.0 - 5.6 % [facility] Comment:Testing performed by : [address] [address] Estimated Average Glucose 117 mg/dL [facility] Comment: The ADA recommends reporting an estimated Average Glucose (eAG) with all Hemoglobin A1c results using the equation derived from a study of 507 normal and diabetic adults. Minority populations were underrepresented and children were not included. (Diabetes Care 31:0452-0626, 2008). The eAG is not equivalent to a fasting glucose. Testing performed by: [address] [address] Blood 05/02/2023 8:35 AM CDT 05/02/2023 9:24 AM CDT Bennie Oliveira MD LAB BLOOD ORDERABLES Final R esult Performing Organization Address [facility] Co de Phone Number JOSE [address] [address] * CT Abdomen Pelvis WO Contrast (02/14/2023 [...] 10:54 AM - Electronically signed by Harrison FARFAN T: Report ID: [id number] Reading Location: [place] [address] Procedure Note Harrison Islas MD - 02/14/2023 [...] Harrison Islas M.D. KR T: Report ID: [id number] Reading Location: [place] [address] Nico Roy DO IMG CT PROCEDURES Final Res ult * (ABNORMAL) Albumin Creatinine Ratio, Urine (11/06/2019 7:26 AM HOUSEKEEPING CLEANER) Creatinine, ur 57 20 - 320 mg/dL [facility] [place] Microalbumin, ur 6.4 See Note: mg/dL [facility] Comment: Reference Range: Reference Range Not established Microalbumin/creat ratio 112(H) <30 mcg/mg creat [facility] Comment: The ADA defines abnormalities in albumin excretion as follows: Category Result (mcg/mg creatinine) Normal <30 Microalbuminuria 30-299 Clinical albuminuria > OR = 300 The ADA recommends that at least two of three specimens collected within a 3-6 month period be abnormal before considering a patient to be within a diagnostic category. 11/06/2019 7:26 AM HOUSEKEEPING CLEANER 11/06/2019 7:29 AM HOUSEKEEPING CLEANER Narrative Resulting Agency Comment Performing Organization Information: Site ID: [id number] Name: [facility] Address: [address] [place], [place] [address] [address] Director: Kali Sheppard D.O., MPH us Anu [facility] URINE ORDERABLES nal Result [facility] from Last 3 Months or Most Recently Relevant to Health Maintenance Additional Health Concerns Infection Onset Date Last Indicated CRE 07/17/2023 07/17/2023 MDR gram neg/ESBL 07/17/2023 07/17/2023 Insurance MEDICARE [facility] MEDICARE [facility] MEDICARE [facility] Advance Directives For more information, please contact: [phone] Documents on File Type Date Recorded 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
--- OUTSIDE RECORDS SUMMARY | 2025-02-04 16:53 | XMS_ITS | Clinical Summary ---
Author Organization [facility] Address [address] [place] [address] Phone Care Team Providers Care Trailer Mechanic Name Role Phone Jaya Dailey MD Primary Care Provider [phone] Allergies No known active allergies Medications Medication Sig Dispensed Refills Start Date End Date Status aspirin EC 81 MG EC tablet Take 81 mg by mouth daily 05/18/2019 Active atorvastatin (LIPITOR) 80 MG tablet TAKE 1 TABLET(80 MG) BY MOUTH DAILY 07/12/2019 Active bumetanide (BUMEX) 1 MG tablet TK 1 T PO D 10/10/2020 Active gabapentin (NEURONTIN) 800 MG tablet TK 1 T PO BID 09/29/2020 Active HumaLOG 100 UNIT/ML injection INJECY 230 TO 260 UNITS SQ VIA INSULIN PUMP 09/22/2020 Active isosorbide mononitrate (IMDUR) 30 MG 24 hr tablet 09/18/2020 Active lisinopril (PRINIVIL) 20 MG tablet 09/29/2020 Active metOLazone (ZAROXOLYN) 5 MG tablet TK 1 T PO D 09/22/2020 Active metoprolol tartrate (LOPRESSOR) 25 MG tablet 07/21/2020 Active nitroglycerin (NITROSTAT) 0.[address] 0.4 mg under the tongue 01/19/2018 Active sertraline (ZOLOFT) 100 MG tablet TK 1 T PO DAILY 07/21/2020 Active spironolactone (ALDACTONE) 25 MG tablet TK 1 T PO QAM 10/10/2020 Active Ticagrelor 60 MG tablet Take 60 mg by mouth 2 times daily 03/20/2020 Active Active Problems Problem Noted Date Diagnosed Date Coronary atherosclerosis 01/19/2018 Acute injury of kidney 01/05/2018 Diabetes mellitus 01/05/2018 Overview (10/17/2020): Last Assessment & Plan: Insulin pump being held for now. SSI provided. Will check a1c. Hypertensive disorder 01/05/2018 Overview (10/17/2020): Last Assessment & Plan: Controlled. Continue with metoprolol. Monitor blood pressure closely. Obstructive sleep apnea syndrome 01/05/2018 Tobacco smoking behavior - finding 01/05/2018 Overview (10/17/2020): Last Assessment & Plan: Counseled on cessation. Family History Medical History Relation Comments Kidney disease Mother Relation Status Comments Mother Social History Tobacco Use Types Packs/Day Years Used Date Smoking Tobacco: Never Smokeless Tobacco: Never Alcohol Use Standard Drinks/Week Comments Not Currently 0 (1 standard drink = 0.6 oz pur e alcohol) Sex and Gender Information Value Date Recorded Sex Assigned at Not on file Gender Identity Not on file Sexual Orientation Not on file Last Filed Vital Signs Vital Sign Reading Time Taken Comments Blood Pressure 100/70 10/23/2020 11:23 AM MOTOR OVERHAULER Pulse 72 10/23/2020 11:23 AM MOTOR OVERHAULER Temperature 36.7 C (98 F) 10/23/2020 11:23 AM MOTOR OVERHAULER Respiratory Rate - - Oxygen Saturation - - Inhaled Oxygen Concentration - - Weight 181 kg (400 lb) 10/23/2020 11:23 AM MOTOR OVERHAULER Height 175.3 cm (5' 9 ) 10/23/2020 11:23 AM MOTOR OVERHAULER Body Mass Index 59.07 10/23/2020 11:23 AM MOTOR OVERHAULER Plan of Treatment Health Maintenance Due Date Last Done Comments Pneumococcal PPSV23/PCV13 65 + Years / Low and Medium Risk (1 of 4 - PCV) 2022 Influenza Vaccine (#1) 2024 Care Teams Trailer Mechanic Relationship Specialty Start Date End Date Jaya Dailey MD [address] [place] [phone] PCP - General Family Medicine 10/21/20
--- OUTSIDE RECORDS SUMMARY | 2025-02-04 16:53 | XMS_ITS | Encounter Summary ---
Author Organization [facility] Healthcare Address [address] [place] [address] Care Team Providers Care Tip Inserter Name Role Phone Jaya Dailey MD Primary Care Provider + [phone] Abelardo Gastelum MD Unavailable [phone] Encounter Details Date Type Department Care Team (Late st Contact Info) Description 07/14/[address] [facility] Radiology [address] [place] [address] Rachael Rao RN Social History Tobacco Use Types Packs/Day Years Used Date Smoking Tobacco: Former Cigars Q uit: 2017 Smokeless Tobacco: Never Alcohol Use Standard Drinks/Week Comments Yes 0 (1 standard drink = 0.6 oz pur e alcohol) maybe 1x/year Social Connection and Isolat ion Panel [NHANES] Answer Date Recorded In a typical week, how many times do you talk on the phone with family, friends, or neighbors? More than three times a week 07/18/2023 How often do you get togethe r with friends or relatives? Twice a week 07/18/2023 How often do you attend chur ch or adventist services? Never 07/18/2023 Do you belong to any clubs o r organizations such as rastafarian groups, unions, fraternal or athletic groups, or school groups? No 07/18/2023 How often do you attend meet ings of the clubs or organizations you belong to? Never 07/18/2023 Are you , , di vorced, , never , or living with a partner? 07/18/2023 AUDIT-C Answer Date Recorded Q1: How often [...] care, and heating? Not hard at all 07/18/2023 Hunger Vital Sign Answer Date Recorded Within the past 12 months, y ou worried that your food would run out before you got the money to buy more. Never true 07/18/20 23 Within the past 12 months, t he food you bought just didn't last and you didn't have money to get more. Never true 07/18/2023 PRAPARE - Transportation Answer Date Re corded In the past 12 months, has l ack of transportation kept you from medical appointments or from getting medications? No 07/08 In the past 12 months, has l ack of transportation kept you from meetings, work, or from getting things needed for daily living? No 07/18/2023 Housing Stability Vital Sign Answer Sebas e Recorded In the last 12 months, was t here a time when you were not able to pay the mortgage or rent on time? No 07/18/2023 In the last 12 months, how many places have you lived? 1 07/18/2023 In the last 12 months, was t here a time when you did not have a steady place to sleep or slept in a care home (including now)? No 07/18/2023 Sex and Gender Information Value Date Recorded Sex Assigned at Not on file Legal Sex Male 3:19 AM BUSINESS SERVICES COORDINATOR Gender Identity Not on file Sexual Orientation Not on file documented as of this encounter Plan of Treatment Not on file documented as of this encounter Visit Diagnoses Not on filedocumented in this encounter Additional Health Concerns Infection Onset Date Last Indicated Resolved Time MRSA 02/14/2023 07/17/2023 01/13/2024 3:05 AM BUSINESS SERVICES COORDINATOR CRE 07/17/2023 07/17/2023 MDR gram neg/ESBL 07/17/2023 07/17/2023 documented as of this encounter Care Teams Tip Inserter Relationship Specialty Start Date End Date Jaya Dailey MD PCP - General Family Medicine 01/18/19 Abelardo Gastelum MD [address] [facility] DEPT [place] [address] Orthopedic Surgery 05/09/23 documented as of this encounter
[2025-02-04 17:10] LABS: Microalbumin Urine Random 491.6 mg/L (0-16.7)
== END 2025-02-04 15:22 | disposition home or self-care (01) ==
LOC: ANHLAB 15:23
PROVIDERS: PCP Family Medicine; Visit Provider Nurse Practitioner Family
DX: I10 Essential (primary) hypertension (principal); E11.65 Type 2 diabetes mellitus with hyperglycemia; E03.9 Hypothyroidism, unspecified; E55.9 Vitamin D deficiency, unspecified; Z79.4 Long term (current) use of insulin
CPT/HCPCS: 36415; 80053; 80061; 82043; 82306; 83036; 84436; 84443; 85027

== ENCOUNTER 2025-02-19 10:52 | Emergency (ER) | payer MEDICARE, SELFPAY ==
[2025-02-19 10:52] VITALS: BP 154/71; PULSE 73; RESP 16; TEMP 36.9; O2SAT 100
--- NOTE | 2025-02-19 11:28 | ED_ITS ---
HPI - General Adult General Chief complaint: Urogenital-Male Stated complaint: catheter change Time Seen by Provider: 02/19/25 11:15 History of Present Illness HPI narrative: Patient is a 69-year-old gentleman presents emergency department with chief complaint of plugged suprapubic catheter. The patient states that he has a chronic suprapubic catheter after spinal cord injury reports that his catheter stopped draining and that he has been urinating through his penis patient states that his last catheter change was about 2 months ago Related Data Allergies Allergy/AdvReac Type Severity Reaction Status Date / Time atorvastatin AdvReac Intermediate myalgia Verified 02/19/25 10:53 Review of Systems Review of Systems: A 10 system review of systems was completed on the patient and is negative except for what is stated in the HPI. Nursing and ancillary documentation was reviewed. [facility] Past Medical History Medical History Type 2 diabetes mellitus with hyperglycemia Poor kidney function Diabetes mellitus with chronic kidney disease Type 2 diabetes mellitus with unspecified diabetic retinopathy with macular edema BMI 45.0-49.9, adult Insulin dependent type 2 diabetes mellitus Urinary tract infection associated with catheterization of urinary tract Morbid (severe) obesity due to excess calories CAD (coronary artery disease) Hyperlipidemia Microhematuria Congestive heart failure Umbilical hernia ASHD (arteriosclerotic heart disease) Depression with anxiety Essential (primary) hypertension Insomnia PERLITA on CPAP Polyneuropathy, unspecified Pure hypercholesterolemia Type 2 diabetes mellitus without complication, with long-term current use of insulin Now has diabetic retinopathy in the right eye Surgical History Surgical History Status post medial meniscus repair of left knee H/O skin graft left ankle History of removal of pigmented skin lesion eyelids H/O heart artery stent 2 in 2018 and 2 in 2019. History of left shoulder replacement 1 week ago S/P tonsillectomy and adenoidectomy Family History Family History Father Family history of malignant neoplasm Leukemia Mother Family history of kidney disease Kidney failure Sibling Acute myocardial infarction Alcohol abuse Lung cancer Other Cerebrovascular accident Diabetes mellitus Family history of arthritis Family history of coronary artery disease Family history of elevated blood lipids Family history of glaucoma Family history of hypercholesterolemia Family history of obesity Hypertension Social History Social History Social History: Surrogate medical decision maker: Rich Quinonez, star. Code status: Do not resuscitate. 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 HEAD: Normocephalic, atraumatic. EYES: PERRLA and EOMI. ENT: Nares clear, no rhinorrhea or epistaxis. Mucous membranes moist. NECK: Supple. CHEST: Clear to auscultation. No respiratory distress. HEART: Regular rate and rhythm. No murmur heard. Normal peripheral pulses. ABDOMEN: Soft, nontender, nondistended, normal active bowel sounds. EXTREMITIES: Normal range of motion. No edema. Suprapubic catheter in place not draining SKIN: Warm, dry, no rash. NEURO: No focal deficits. Alert and oriented x3. PSYCH: Normal mood and affect. Course Vital Signs Vital signs: Vital Signs Temperature 36.9 C 02/19/25 10:52 Pulse Rate 73 02/19/25 10:52 Respiratory Rate 16 02/19/25 10:52 Blood Pressure 154/71 H 02/19/25 10:52 Pulse Oximetry 100 02/19/25 10:52 Oxygen Delivery Room Air 02/19/25 10:52 Temperature 36.9 C 02/19/25 10:52 Pulse Rate 82 02/19/25 11:57 Respiratory Rate 18 02/19/25 11:57 Blood Pressure 151/82 H 02/19/25 11:57 Pulse Oximetry 99 02/19/25 11:57 Oxygen Delivery Room Air 02/19/25 10:52 Procedures Catheter Insertion (Urinary) Urinary Catheter 1: Date of insertion: 02/19/25 Time of insertion: 11:30 Reason for placing: Yes Reason for placing indwelling catheter: Acute urinary retention Patient has the following: other (Suprapubic catheter) Antiseptic solution prep: Povidone-Iodine Catheter type/location: Suprapubic Size (Belarusian): 16 Catheter balloon size (mL): 10 Catheter balloon amount: 10 Results: successfully catheterized-immediate flow Procedure performed: without complications Complications: Pubic catheter changed out that was obstructed Medical Decision Making Vital Signs Vital Signs: Vital Signs Temperature 36.9 C 02/19/25 10:52 Pulse Rate 73 02/19/25 10:52 Respiratory Rate 16 02/19/25 10:52 Blood Pressure 154/71 H 02/19/25 10:52 Pulse Oximetry 100 02/19/25 10:52 Oxygen Delivery Room Air 02/19/25 10:52 Temperature 36.9 C 02/19/25 10:52 Pulse Rate 82 02/19/25 11:57 Respiratory Rate 18 02/19/25 11:57 Blood Pressure 151/82 H 02/19/25 11:57 Pulse Oximetry 99 02/19/25 11:57 Oxygen Delivery Room Air 02/19/25 10:52 Lab Data Labs: Lab Results 02/19/25 Range/Units 11:43 Urine Color Yellow (Yellow) Urine Appearance Clear (Clear) Urine pH 6.5 (5.0-9.0) Ur Specific [place] 1.013 (1.001-1.035) Urine Protein 2+ H (Negative) mg/dL Urine Glucose (UA) Negative (Negative) mg/dL Urine Ketones Negative (Negative) mg/dL Ur Blood (Man) 2+ H (Negative) Urine Nitrate Negative (Negative) Urine Bilirubin Negative (Negative) Urine Urobilinogen 0.2 (<2.0) mg/dL Leukocyte Esterase Rfl 2+ H (Negative) MAGED/UL Urine RBC >100 H (0-2) /hpf Urine WBC 21-50 H (0-3) /hpf Ur Squamous Epith Cells None seen (Few) /hpf Urine Bacteria Rare /hpf Urine Casts 0-2 Discharge Plan Discharge Clinical Impression: Suprapubic catheter dysfunction, Urinary tract infection Patient Disposition: Home Condition: Stable Instructions: Antibiotic Form, Shoemaker Catheter Placement and Care (ED) Patient Language: Macedonian Prescriptions: New sulfamethoxazole-trimethoprim [Bactrim DS] 800-160 mg tablet 1 tablet PO Q12H Qty: 14 0RF No Action Eliquis 5 mg tablet 5 mg PO BID Qty: 180 6RF metoprolol tartrate 25 mg tablet 25 mg PO DAILY Qty: 90 6RF (DME) Prodigy No Coding Strip See Rx Instructions .ROUTE .MEDSUPPLY Qty: 50 0RF Rx Instructions: Use to check BS 4 times daily Follow-up/Referrals: Jaya Dailey MD [Primary Care Provider] - Time of Disposition: 12:22
[2025-02-19 11:57] VITALS: BP 151/82; PULSE 82; RESP 18; O2SAT 99
[2025-02-19 12:01] LABS: Add Urine Microscopic? YES; Appearance Urine Clear (Clear); Bacteria Urine Rare /hpf; Bilirubin Urine Negative (Negative); Blood Urine 2+ (Negative); Color Urine Yellow (Yellow); Glucose Urine UA Negative (Negative); Ketones Urine Negative (Negative); Leukocyte Esterase Ur 2+ LEU/UL (Negative); Nitrate Urine Negative (Negative); Non Pathogenic Casts 0-2; Protein Urine 2+ mg/dL (Negative); RBC Urine >100 /hpf (0-2); Specific Grav Ur 1.013 (1.001-1.035); Squamous Epithelial Cell Urine None Seen /hpf (Few); Urobilinogen Urine 0.2 mg/dL (<2.0); WBC Urine 21-50 /hpf (0-3); pH Urine 6.5 (5.0-9.0)
--- OUTSIDE RECORDS SUMMARY | 2025-02-19 12:08 | XMS_ITS | Continuity of Care Document ---
[facility] Organization [facility] Address [address] [place] [address] Phone Care Team Providers Care Gunstock Spray Unit Adjuster Name Role Phone Ivis VILLALTA, Claudy Unavailable Unavailable Advance Directives Directive Yes / No Effective Date File Name No Information Encounters Encounter Description Practice Location Reason(s) For Visit Diagnoses Date Provider Providers Copied on Encounter [facility] [address], [place], [place], [id number], [place] tel:[phone] [facility] No Information Ivis Loco. [address] , [place], [place], [id number], [place]. tel:[phone] Referring Provider: Hong Hernandez DO, [address], [place], [address]. tel:[phone] Family History Family Member Type Diagnosis Age At Onset No Information Payers Payer name Insurance type Covered green party ID Authoriza tion(s) [employer] OPEN ACCESS I II III CI [id number] 1 Social History Type Description Quantity Date [...]
--- OUTSIDE RECORDS SUMMARY | 2025-02-19 12:08 | XMS_ITS | Encounter Summary ---
Author Organization [facility] Address [address] [place] [address] Care Team Providers Care Sr. Social Media & Mobile Manager Name Role Phone Lewis Chopra MD Primary Care Provider [phone] Encounter Details Date Type Department Care Team (Late st Contact Info) Description 03/16/2023 Telephone [facility] - Infectious Disease [address] [facility], [facility] [place] [address] Harrison Titus MD [facility] [place] [address] Social History Tobacco Use Types [...] and heating? Not hard at all 02/16/2023 [facility] [place] [facility] - Occupational Stress [...] place to sleep or slept in a prison (including now)? No 02/16/2023 Sex and Gender Information Value Date Recorded Sex Assigned at Not on file Legal Sex Male 7:47 PM TUB TENDER Gender Identity Not on file Sexual Orientation Not on file documented as of this encounter Functional Status * Is person deaf or have serious hearing difficulty? Answer Date of Assessment Author No 02/16/2023 12:45 AM CDT Елена Nettles RN * Is person blind or have serious difficulty seeing? Answer Date of Assessment Author No 02/16/2023 12:45 AM CDT Елена Nettles RN * Does person have serious difficulty walking/climbing stairs? Answer Date of Assessment Author Yes 02/16/2023 12:45 AM SHREYAST Елена Nettles RN * Does person have difficulty dressing/bathing? Answer Date of Assessment Author Yes 02/16/2023 12:45 AM CDT Елена Nettles RN * Does person have difficulty doing errands alone? Answer Date of Assessment Author Yes 02/16/2023 12:45 AM CDT Елена Nettles RN documented as of this encounter Mental Status * Does person have difficulty concentrating/remembering/making decisions? Answer Entry Date Author No 02/16/2023 12:45 AM CDT Елена Nettles RN documented in this encounter Miscellaneous Notes * Telephone Encounter - Melody Chou - 03/16/2023 1:42 PM CDT Current Provider name: Dr. Harrison Titus Reason for call: [facility]. [facility]/05/2023[facility] OP ANTIBIOTIC THERAPY appt rescheduled to 04/12/2023 because he will have NO transportation. Schedule conflict. The Rehab center is [facility], , contact is Amaya over scheduling and transportation. Give her a call to reschedule and with any questions. Thanks. Patient Call Back number: [phone] documented in this encounter Plan of Treatment Not on file documented as of this encounter Visit Diagnoses Not on filedocumented in this encounter Additional Health Concerns Infection Onset Date Last Indicated Resolved Time MRSA 02/16/2023 02/23/2023 documented as of this encounter Care Teams Sr. Social Media & Mobile Manager Relationship Specialty Start Date End Date Lewis Chopra MD [address] [place] [id number] PCP - General 02/17/23 documented as of this encounter
--- OUTSIDE RECORDS SUMMARY | 2025-02-19 12:08 | XMS_ITS | Encounter Summary ---
Author Organization [facility] Healthcare Address [address] [place] [address] Care Team Providers Care Morphologist Name Role Phone Jaya Dailey MD Primary Care Provider + [phone] Abelardo Gastelum MD Unavailable [phone] Encounter Details Date Type Department Care Team (Late st Contact Info) Description 07/14/2023 Telephone [facility] Radiology [address] [place] [address] Rachael Rao RN Social History Tobacco Use [...] often do you attend chur ch or mandaeism services? Never 07/18/2023 Do you belong to any clubs o r organizations such as jainism groups, unions, fraternal or athletic groups, or [...] on file Legal Sex Male 3:19 AM CONTINUOUS PICKLING LINE PICKLER Gender Identity Not on file Sexual Orientation Not on file documented as of this encounter Plan of Treatment Not on file documented as of this encounter Visit Diagnoses Not on filedocumented in this encounter Additional Health Concerns Infection Onset Date Last Indicated Resolved Time MRSA 02/14/2023 07/17/2023 01/13/2024 3:05 AM CONTINUOUS PICKLING LINE PICKLER CRE 07/17/2023 07/17/2023 MDR gram neg/ESBL 07/17/2023 07/17/2023 documented as of this encounter Care Teams Morphologist Relationship Specialty Start Date End Date Jaya Dailey MD PCP - General Family Medicine 01/18/19 Abelardo Gastelum MD [address] [facility] [place] [address] Orthopedic Surgery 05/09/23 documented as of this encounter
--- OUTSIDE RECORDS SUMMARY | 2025-02-19 12:08 | XMS_ITS | Clinical Summary ---
Author Organization [facility] Address [address] [place] [address] Care Team Providers Care Globe Changer Name Role Phone Jaya Dailey MD Primary Care Provider [phone] Allergies No known active allergies Medications aspirin [...] on file Legal Sex Male 3:40 PM SUPERVISOR PUMPING STATION Gender Identity Not on file Sexual Orientation Not on file Last Filed Vital Signs Vital Sign Reading Time Taken Comments Blood Pressure 133/49 01/03/2023 2:03 PM SUPERVISOR PUMPING STATION Pulse 73 01/03/2023 2:34 PM SUPERVISOR PUMPING STATION Temperature 36.4 C (97.6 F) 01/03/2023 2:03 PM SUPERVISOR PUMPING STATION Respiratory Rate 10 01/03/2023 2:03 PM SUPERVISOR PUMPING STATION Oxygen Saturation 98% 01/03/2023 2:03 PM SUPERVISOR PUMPING STATION Inhaled Oxygen Concentration - - Weight 181.4 kg (400 lb) 01/03/2023 2:03 PM SUPERVISOR PUMPING STATION Height 176.8 cm (5' 9.6 ) 01/03/2023 2:03 PM SUPERVISOR PUMPING STATION Body Mass Index 58.06 01/03/2023 2:03 PM SUPERVISOR PUMPING STATION Plan of Treatment Health Maintenance Due Date [...] 2024 Insurance MEDICARE PART A AND B [facility] MEDICARE PART A AND B Care Teams Globe Changer Relationship Specialty Start Date End Date Jaya Dailey MD [address] [place] [address] PCP - General Family Practice 01/03/23
--- OUTSIDE RECORDS SUMMARY | 2025-02-19 12:08 | XMS_ITS | Encounter Summary ---
Author Organization [facility] Healthcare Address [address] [place] [address] Care Team Providers Care Filament Wound Parts Fabricator Name Role Phone Jaya Dailey MD Primary Care Provider + [phone] Abelardo Gastelum MD Unavailable [phone] Encounter Details Date Type Department Care Team (Late st Contact Info) Description 08/09/[address] [facility] Radiology [address] [place] [address] Sheree Vasquez RN Social History Tobacco Use [...] often do you attend chur ch or islam services? Never 07/28/2023 Do you belong to any clubs o r organizations such as taoism groups, unions, fraternal or athletic groups, or [...] place to sleep or slept in a fdc (including now)? No 07/28/2023 Personal Safety Answer Date Recorded Have you ever been in or are you currently in a harmful physical or emotional relationship or is someone making you feel afraid or unsafe? Denies 08/12/2023 Sex and Gender Information Value Date Recorded Sex Assigned at Not on file Legal Sex Male 3:19 AM DOOR PATCHER Gender Identity Not on file Sexual Orientation [...] Time MRSA 02/14/2023 07/17/2023 01/13/2024 3:05 AM DOOR PATCHER CRE 07/17/2023 07/17/2023 MDR gram neg/ESBL 07/17/2023 07/17/2023 documented as of this encounter Care Teams Filament Wound Parts Fabricator Relationship Specialty Start Date End Date Jaya Dailey MD PCP - General Family Medicine 01/18/19 Abelardo Gastelum MD [address] [facility] DEPT [place] [address] Orthopedic Surgery 05/09/23 documented as of this encounter
--- OUTSIDE RECORDS SUMMARY | 2025-02-19 12:08 | XMS_ITS | Clinical Summary ---
Author Organization [facility] Address [address] [place] [address] Phone Care Team Providers Care Grades 1 6 Tutor Name Role Phone Jaya Dailey MD Primary Care Provider [phone] Allergies No known active allergies Medications aspirin EC 81 MG EC tablet Take [...] at Not on file Legal Sex Male 7:53 AM MDT Gender Identity Not on file Sexual Orientation Not on file Last Filed Vital Signs Vital Sign Reading Time Taken Comments Blood Pressure 100/70 10/23/2020 11:23 AM STUDENT LIFE VICE PRESIDENT Pulse 72 10/23/2020 11:23 AM STUDENT LIFE VICE PRESIDENT Temperature 36.7 C (98 F) 10/23/2020 11:23 AM STUDENT LIFE VICE PRESIDENT Respiratory Rate - - Oxygen Saturation - - Inhaled Oxygen Concentration - - Weight 181 kg (400 lb) 10/23/2020 11:23 AM STUDENT LIFE VICE PRESIDENT Height 175.3 cm (5' 9 ) 10/23/2020 11:23 AM STUDENT LIFE VICE PRESIDENT Body Mass Index 59.07 10/23/2020 11:23 AM STUDENT LIFE VICE PRESIDENT Plan of Treatment Health Maintenance Due Date Last Done Comments Pneumococcal PPSV23/PCV13 65 + Years / Low and Medium Risk (1 of 4 - PCV) 2007 Influenza Vaccine (Season Ended) 2025 Insurance [employer] Care Teams Grades 1 6 Tutor Relationship Specialty Start Date End Date Jaya Dailey MD [address] [place] [address] PCP - General Family Medicine 10/21/20
--- OUTSIDE RECORDS SUMMARY | 2025-02-19 12:08 | XMS_ITS | Clinical Summary ---
Author Organization 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 Given at 6 am 30 [...] 09/23/2023 Assessment & Plan (09/23/2023 4:10 PM NIGHT CLERK): By hx suspect more gas/bloating Consider constipation [...] 08/01 Assessment & Plan (09/23/2023 4:09 PM NIGHT CLERK): Wound care following Still wrapped No active [...] 08/01/2023 Assessment & Plan (09/23/2023 4:09 PM NIGHT CLERK): Multifactorial Also obstructive Cont murillo Assessment & Plan (08/11/2023 8:25 PM CDT): Has catheter Staff to arrange urology fu for xchg Assessment & Plan (08/05/2023 4:24 PM CDT): Has murillo in place, hx of SAMANTA, unlikely to improve Assessment & Plan (08/01/2023 7:45 PM CDT): Cont spc Rt samanta Has 10 uro appt Encounter for examination for admission to [facility] 07/28/2023 Chronic atrial fibrillation 07/28/2023 Assessment & [...] to obtain cardiac clearance but patients primary oil well services supervisor will not give d/t not seeing in [...] 04/28/2023 Assessment & Plan (11/16/2023 4:16 PM NIGHT CLERK): Multifactorial related to chronic illness and cauda [...] 03/25/2023 Assessment & Plan (11/16/2023 4:16 PM NIGHT CLERK): Currently rate controlled. Continue metoprolol. Discussed with [...] 02/16/2023 Assessment & Plan (11/16/2023 4:16 PM NIGHT CLERK): Currently compensated. Continue metolazone metoprolol. 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 Slow but consistent progress. Continue to [facility]. Assessment & Plan (06/27/2023 11:00 AM CDT): [...] (01/30/2019): Added automatically from request for surgery [id number] Diabetic polyneuropathy asso ciated with type 2 [...] lopressor Assessment & Plan (01/05/2018 11:41 AM NIGHT CLERK): Controlled. Continue with metoprolol. Monitor blood pressure [...] lispro Assessment & Plan (01/05/2018 11:42 AM NIGHT CLERK): Insulin pump being held for now. SSI [...] CDT): Brought this to the attention of electrician locomotive Halina who will ask for an air [...] 03/25/2023 Assessment & Plan (01/05/2018 11:39 AM NIGHT CLERK): Troponin peaked at 35.95. EKG as noted above. Cardiology has been consulted and pt is now s/p cardiac catheterization with possible plans to re-enter for further intervention. ASA, Brillinta, Bb, Sony, and Statin ordered. Continue with telemetry. Smoking addiction 01/05/2018 03/25/2023 Assessment & Plan (01/05/2018 11:42 AM NIGHT CLERK): Counseled on cessation. Morbid obesity 01/05/2018 03/25/2023 Assessment & Plan (01/05/2018 11:44 AM NIGHT CLERK): Pt reports a weight loss of 30+ pounds but has recently began to gain the weight back. Encouraged to begin a weight loss regimen. 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 Pneumonia 02/2023 see [...] often do you attend chur ch or yarsanism services? Never 07/28/2023 Do you belong to any clubs o r organizations such as jew groups, unions, fraternal or athletic groups, or [...] place to sleep or slept in a group home (including now)? No 07/28/2023 Personal Safety Answer Date Recorded Have you ever been in or are you currently in a harmful physical or emotional relationship or is someone making you feel afraid or unsafe? Denies 01/29/2024 Sex and Gender Information Value Date Recorded Sex Assigned at Not on file Legal Sex Male 3:19 AM NIGHT CLERK Gender Identity Not on file Sexual Orientation [...] Completed 02/14/2023 Medical Devices Implanted Type Area Silo Painter Device Identifier Shelf Expiration Date Model / Serial / Lot [employer] Zbigniew [id number] Synergy 2.5mm 24mm 144cm Radiopaque 1 Access Port Inflation Lumen - [id number] Implanted:Qty: 1 on 02/22/2019 by Brock Carr MD at [facility] Stent N/A: Heart [employer] Zbigniew 11/13/2020 [id number] / / [id number] [employer] Zbigniew [id number] Synergy 3mm 20mm 144cm Radiopaque 1 Access Port Inflation Lumen - [id number] Implanted:Qty: 1 on 02/22/2019 by Brock Carr MD at [facility] Stent N/A: Heart [employer] Zbigniew 11/08/2020 [id number] / / [id number] Insulin Pump Abdomen System Coronary Stent Synergy Pebax Everolimus Eluting [place] Chromium Plga L16 Mm L144 Cm Od2.5 Mm Radiopaque 1 Access Port Inflation Lumen Accepts .014 In Guidewire - [id number] Implanted:Qty: 1 on 01/04/2018 by Ofelia Ruiz MD at [facility] [employer] Scientific Zbigniew 09/19/2018 [id number] / / [id number] System Coronary Stent Synergy Pebax Everolimus Eluting [place] Chromium Plga L20 Mm L144 Cm Od2.5 Mm Radiopaque 1 Access Port Inflation Lumen Accepts .014 In Guidewire - [id number] Implanted:Qty: 1 on 01/04/2018 by Ofelia Ruiz MD at [facility] [employer] Scientific Zbigniew 10/18/2018 [id number] / / [id number] Daig Zbigniew/[employer] [id number] Angio-Seal Vip Bondek-Plus 6fr .035in 70cm Hemostatic Latex Free - [id number] Implanted:Qty: 1 on 02/22/2019 by Brock Carr MD at [facility] Right: Groin Daig Zbigniew/[employer] 10/06/2019 [id number] / / [id number] Procedures Procedure Name Priority Date/Time Associated Diagnosis Comments POCT LIPID PANEL Routine 08/08/2024 10:5 4 AM CDT Lipid screening EGFR Routine 07/29/2023 7:15 AM CDT HEMOGLOBIN A1C Routine 05/02/2023 8:[address] ABDOMEN PELVIS WO CONTRAST ED 02/14/2023 10:33 AM CDT ALBUMIN CREATININE RATIO, URINE Routine 11/06/2019 7:26 AM NIGHT CLERK from Last 3 Months or Most Recently [...] ORDERABLES Stephanie l Result Performing Organization Address [facility] Co de Phone Number RAHUL [address] [address] * (ABNORMAL) Hemoglobin A1c (05/02/2023 8:35 AM CDT) Hgb A1C 5.7(H) 4.0 - 5.6 % [facility] Comment:Testing performed by : [address] [address] Estimated Average Glucose 117 mg/dL [facility] Comment: The ADA recommends reporting an estimated Average Glucose (eAG) with all Hemoglobin A1c results using the equation derived from a study of 507 normal and diabetic adults. Minority populations were underrepresented and children were not included. (Diabetes Care 31:6696-2019, 2008). The eAG is not equivalent to a fasting glucose. Testing performed by: [address] [address] Blood 05/02/2023 8:35 AM CDT 05/02/2023 9:24 AM CDT Bennie Oliveira MD LAB BLOOD ORDERABLES Final R esult Performing Organization Address [facility] Co de Phone Number JOSE [address] [address] * CT Abdomen Pelvis WO Contrast (02/14/2023 [...] signed by Harrison FARFAN T: Report ID: [id number] Reading Location: [place] [address] Procedure Note Harrison Islas MD - 02/14/2023 [...] Harrison Islas M.D. KR T: Report ID: [id number] Reading Location: [place] [address] Nico Roy DO IMG CT PROCEDURES Final Res ult * (ABNORMAL) Albumin Creatinine Ratio, Urine (11/06/2019 7:26 AM NIGHT CLERK) Creatinine, ur 57 20 - 320 mg/dL [employer] [facility] [place] Microalbumin, ur 6.4 See Note: mg/dL [facility] [place] Comment: Reference Range: Reference Range Not established Microalbumin/creat ratio 112(H) <30 mcg/mg creat [facility] [place] Comment: The ADA defines abnormalities in albumin excretion as follows: Category Result (mcg/mg creatinine) Normal <30 Microalbuminuria 30-299 Clinical albuminuria > OR = 300 The ADA recommends that at least two of three specimens collected within a 3-6 month period be abnormal before considering a patient to be within a diagnostic category. 11/06/2019 7:26 AM NIGHT CLERK 11/06/2019 7:29 AM NIGHT CLERK Narrative Resulting Agency Comment Performing Organization Information: Site ID: [place] Name: [facility] Address: [address] [place], [place] [address] [place] [address] Director: Kali Sheppard D.O., MPH Anu [facility] LAB URINE ORDERABLES nal Result [facility] [place] from Last 3 Months or Most Recently Relevant to Health Maintenance Additional Health Concerns Infection Onset Date Last Indicated CRE 07/17/2023 07/17/2023 MDR gram neg/ESBL 07/17/2023 07/17/2023 Insurance [employer] [employer] [facility] MEDICARE ADVANTAGE MEDICARE [facility] Advance Directives For more information, please contact: [phone] Documents on File Type Date Recorded 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
--- OUTSIDE RECORDS SUMMARY | 2025-02-19 12:08 | XMS_ITS | Clinical Summary ---
Author Organization [facility] Address [address] [place] [address] Care Team Providers Care Diamond Blender Name Role Phone Unavailable Primary Care Provider [...] Vaccines (1 of 2) 2007 Pneumococcal Vaccine: 50+ Ye ars (1 of 1 - PCV) 2022 COVID-19 Vaccine (1 - 2023-2 5 season) 2024 RSV Immunization or 60+ Years (1 [...]
--- OUTSIDE RECORDS SUMMARY | 2025-02-19 12:08 | XMS_ITS | Referral Summary ---
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 Given at 6 am 30 [...] 09/23/2023 Assessment & Plan (09/23/2023 4:10 PM YARD JACKER): By hx suspect more gas/bloating Consider constipation [...] 08/01 Assessment & Plan (09/23/2023 4:09 PM YARD JACKER): Wound care following Still wrapped No active [...] 08/01/2023 Assessment & Plan (09/23/2023 4:09 PM YARD JACKER): Multifactorial Also obstructive Cont murillo Assessment & Plan (08/11/2023 8:25 PM CDT): Has catheter Staff to arrange urology fu for xchg Assessment & Plan (08/05/2023 4:24 PM CDT): Has murillo in place, hx of SAMANTA, unlikely to improve Assessment & Plan (08/01/2023 7:45 PM CDT): Cont spc Rt samanta Has 10 uro appt Encounter for examination for admission to [facility] 07/28/2023 Chronic atrial fibrillation 07/28/2023 [...] to obtain cardiac clearance but patients primary lift team technician will not give d/t not seeing in [...] 04/28/2023 Assessment & Plan (11/16/2023 4:16 PM YARD JACKER): Multifactorial related to chronic illness and cauda [...] 03/25/2023 Assessment & Plan (11/16/2023 4:16 PM YARD JACKER): Currently rate controlled. Continue metoprolol. Discussed with [...] 02/16/2023 Assessment & Plan (11/16/2023 4:16 PM YARD JACKER): Currently compensated. Continue metolazone metoprolol. 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 Slow but consistent progress. Continue to [facility]. Assessment & Plan (06/27/2023 11:00 [...] (01/30/2019): Added automatically from request for surgery [id number] Diabetic polyneuropathy asso ciated with type 2 [...] lopressor Assessment & Plan (01/05/2018 11:41 AM YARD JACKER): Controlled. Continue with metoprolol. Monitor blood pressure [...] lispro Assessment & Plan (01/05/2018 11:42 AM YARD JACKER): Insulin pump being held for now. SSI [...] CDT): Brought this to the attention of marine engine driver Halina who will ask for an air [...] 03/25/2023 Assessment & Plan (01/05/2018 11:39 AM YARD JACKER): Troponin peaked at 35.95. EKG as noted above. Cardiology has been consulted and pt is now s/p cardiac catheterization with possible plans to re-enter for further intervention. ASA, Brillinta, Bb, Sony, and Statin ordered. Continue with telemetry. Smoking addiction 01/05/2018 03/25/2023 Assessment & Plan (01/05/2018 11:42 AM YARD JACKER): Counseled on cessation. Morbid obesity 01/05/2018 03/25/2023 Assessment & Plan (01/05/2018 11:44 AM YARD JACKER): Pt reports a weight loss of 30+ [...] How often do you attend chur or sabianism services? Never 07/28/2023 Do you belong to any clubs o r organizations such as uatsdin groups, unions, fraternal or athletic groups, or [...] place to sleep or slept in a alf (including now)? No 07/28/2023 Personal Safety Answer Date Recorded Have you ever been in or are you currently in a harmful physical or emotional relationship or is someone making you feel afraid or unsafe? Denies 01/29/2024 Sex and Gender Information Value Date Recorded Sex Assigned at Not on file Legal Sex Male 3:19 AM YARD JACKER Gender Identity Not on file Sexual Orientation [...] on file Medical Devices Implanted Type Area Body Technician Device Identifier Shelf Expiration Date Model / Serial / Lot [employer] Zbigniew [id number] Synergy 2.5mm 24mm 144cm Radiopaque 1 Access Port Inflation Lumen - [id number] Implanted:Qty: 1 on 02/22/2019 by Brock Carr MD at [facility] Stent N/A: Heart [employer] Zbigniew 11/13/2020 [id number] / / [id number] [employer] Zbigniew [id number] Synergy 3mm 20mm 144cm Radiopaque 1 Access Port Inflation Lumen - [id number] Implanted:Qty: 1 on 02/22/2019 by Brock Carr MD at [facility] Stent N/A: Heart [employer] Zbigniew 11/08/2020 [id number] / / [id number] Insulin Pump Abdomen System Coronary Stent Synergy Pebax Everolimus Eluting [place] Chromium Plga L16 Mm L144 Cm Od2.5 Mm Radiopaque 1 Access Port Inflation Lumen Accepts .014 In Guidewire - [id number] Implanted:Qty: 1 on 01/04/2018 by Ofelia Ruiz MD at [facility] [employer] Scientific Zbigniew 09/19/2018 [id number] / / [id number] System Coronary Stent Synergy Pebax Everolimus Eluting [place] Chromium Plga L20 Mm L144 Cm Od2.5 Mm Radiopaque 1 Access Port Inflation Lumen Accepts .014 In Guidewire - [id number] Implanted:Qty: 1 on 01/04/2018 by Ofelia Ruiz MD at [facility] [employer] 10/18/2018 [id number] / / [id number] Daig Zbigniew/[employer] [id number] Angio-Seal Vip Bondek-Plus 6fr .035in 70cm Hemostatic Latex Free - [id number] Implanted:Qty: 1 on 02/22/2019 by Brock Carr MD at [facility] Right: Groin Daig Zbigniew[employer] 10/06/2019 [id number] / / [id number] Procedures Procedure Name Priority Date/Time Associated Diagnosis Comments POCT LIPID PANEL Routine 08/08/2024 10:5 4 AM CDT Lipid screening EGFR Routine 07/29/2023 7:15 AM CDT HEMOGLOBIN A1C Routine 05/02/2023 8:[address] ABDOMEN PELVIS WO CONTRAST ED 02/14/2023 10:33 AM CDT ALBUMIN CREATININE RATIO, URINE Routine 11/06/2019 7:26 AM YARD JACKER from Last 3 Months or Most Recently [...] MD LAB BLOOD ORDERABLES Stephanie l Result [address] Department [place] [address] * (ABNORMAL) Hemoglobin A1c (05/02/2023 8:35 AM CDT) Hgb A1C 5.7(H) 4.0 - 5.6 % [facility] Comment:Testing performed by : [address] [address] Estimated Average Glucose 117 mg/dL [facility] Comment: The ADA recommends reporting an estimated Average Glucose (eAG) with all Hemoglobin A1c results using the equation derived from a study of 507 normal and diabetic adults. Minority populations were underrepresented and children were not included. (Diabetes Care 31:8136-3371, 2008). The eAG is not equivalent to a fasting glucose. Testing performed by: [address] [address] Blood 05/02/2023 8:35 AM CDT 05/02/2023 9:24 AM CDT us Bennie Oliveira MD LAB BLOOD ORDERABLES Final R esult RAHUL [address] [facility] Department [place] [address] * CT Abdomen Pelvis WO Contrast (02/14/2023 [...] Harrison Islas M.D. KR T: Report ID: [id number] Reading Location: [id number] Procedure Note Harrison Islas MD - 02/14/2023 [...] by Harrison Islas M.D. T: Report ID: [id number] Reading Location: [place] [address] Nico Roy DO IMG CT PROCEDURES Final Res ult * (ABNORMAL) Albumin Creatinine Ratio, Urine (11/06/2019 7:26 AM YARD JACKER) Creatinine, ur 57 20 - 320 mg/dL [facility] [place] Microalbumin, ur 6.4 See Note: mg/dL [facility] [place] Comment: Reference Range: Reference Range Not established Microalbumin/creat ratio 112(H) <30 mcg/mg creat [facility] [place] Comment: The ADA defines abnormalities in albumin excretion as follows: Category Result (mcg/mg creatinine) Normal <30 Microalbuminuria 30-299 Clinical albuminuria > OR = 300 The ADA recommends that at least two of three specimens collected within a 3-6 month period be abnormal before considering a patient to be within a diagnostic category. 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
--- OUTSIDE RECORDS SUMMARY | 2025-02-19 12:08 | XMS_ITS | Clinical Summary ---
Author Organization [facility] Address [address] [place] [address] Care Team Providers Care Election Assistant Name Role Phone Lewis Chopra MD Primary Care Provider [phone] Source Comments [facility],non-owned Affiliates and Associated Physician Practices is amultiple site organization consisting of ambulatory clinics and hospital sitesin [place], [place], [place] and [place]. This disclosure is being madepursuant to the Care Everywhere program and may not contain all information available regarding this patient. Last updated 18.[facility] Allergies No known active allergies Medications * Be aware that medications may not be up to date on this document. Alwaysverify current medications with the patient. acetaminophen (Tylenol) 325 MG tablet Take 2 (two) tablets by mouth every 4 hours as needed Maximum allowable Acetaminophen amount = 4 Grams (4000 mg) / 24 hours. 90 tablet 03/10/20 23 Active amiodarone (Cordarone) 200 MG tabletIndication s:Atrial Fibrillation Take 1 (one) tablet by mouth once daily Reasons: Atrial Fibrillation 90 tablet 03/11/20 23 Active apixaban (Eliquis) 5 MG tablet Take 1 (one) tablet by mouth 2 times daily 180 tablet 03/10/20 23 Active gabapentin (Neurontin) 300 MG capsule Take 1 (one) capsule by mouth 3 times daily 270 capsule 03/10/20 23 Active sertraline (Zoloft) 100 MG tablet Take 1 (one) tablet by mouth once daily 90 tablet 03/11/20 23 Active traZODone (Desyrel) 50 MG tablet Take 1 (one) tablet by mouth nightly as needed for Insomnia 90 tablet 03/10/20 23 Active insulin glargine (Lantus/Semglee) 100 units/mL pen Inject 50 (fifty) Units subcutaneously every morning 45 mL 03/11/20 23 Active metoprolol tartrate IR (Lopressor) 100 MG tablet Take 1 (one) tablet by mouth 2 times daily 180 tablet 03/10/20 23 Active capsaicin (Zostrix) 0.025 % cream Apply to affected area 3 times daily 50 g 03/10/20 23 Active lidocaine (Lidoderm) 5 % patch Apply 2 (two) patches to skin every 24 hours Apply patch to most painful area and remove after 12 hours. May reapply a new patch 12 hours later. 30 patch 03/11/20 23 Active lactulose (Chronulac) 10 GM/15ML solution Take 30 mL by mouth once daily as needed for Constipation 473 mL 03/10/20 23 Active polyethylene glycol 3350 (Miralax) 17 g packet Take 17 (seventeen) g by mouth once daily 24 packet 03/11/20 23 Active sennosides (Senokot) 8.6 MG tablet Take 1 (one) tablet by mouth once daily 90 tablet 03/11/20 23 Active Melatonin 10 MG Take 10 (ten) mg by mouth at bedtime 90 tablet 03/10/20 23 Active calcium-vitamin D (Os-Vinny 500 + D) 500-200 mg-unit tablet Take 1 (one) tablet by mouth 3 times daily with meals 270 tablet 03/10/20 23 Active ticagrelor (Brilinta) 90 MG tablet Take 1 (one) tablet by mouth 2 times daily 180 tablet 03/10/20 23 Active pantoprazole EC (Protonix) 40 MG tablet Take 1 (one) tablet by mouth 2 times daily 180 tablet 03/10/20 23 Active vitamin D, ergocalciferol, (Drisdol) 1.25 MG (06939 UT) capsuleIndicatio ns:Vitamin D Deficiency Take 1 (one) capsule by mouth every Tuesday & Reasons: Vitamin D Deficiency 90 capsule 05/04/20 23 Active Active Problems Problem Noted Date Diagnosed Date High anion gap metabolic acidosis 03/06/2023 Acute blood loss anemia 03/02/2023 Duodenal ulcer 03/02/2023 Diabetes insipidus - WAFFLE MACHINE OPERATOR Deficiency 03/02/2023 Lung mass 03/02/2023 Sepsis due [...] and heating? Not hard at all 02/16/2023 [facility] of Occupat ional Health - Occupational Stress [...] place to sleep or slept in a [place] (including now)? No 02/16/2023 Sex and Gender Information Value Date Recorded Sex Assigned at Not on file Legal Sex Male 7:47 PM ASPARAGUS BUNCHER Gender Identity Not on file Sexual Orientation [...] VACCINE ( season) 2024 11/13/2021, 02/09/2021, 01/19/2021 DEPRESSION SCREENING 11/07/2024 DIABETES - URINE PROTEIN SCREENING 11/07/2024 02/16/2023 INFLUENZA VACCINE (Season Ended) 2025 HEPATITIS C SCREENING Completed 02/18/2023 HEPATITIS B [...] NAAT QUANT STAT 02/18/2023 3:20 AM CDT PROTEIN CREATININE RATIO URINE RANDOM PNL Routine 02/16/2023 7:38 AM CDT HEMOGLOBIN A1C Routine 02/16/2023 1:23 AM CDT from Last 3 Months or Most Recently Relevant to Health Maintenance Results * (ABNORMAL) RENAL FUNCTION PANEL (03/10/2023 5:11 AM CDT) BUN 35(H) 7 - 26 mg/dL 03/10/2023 5:51 AM [facility] Creatinine 1.84(H) 0.71 - 1.16 mg/dL 03/10/2023 5:51 AM [facility] Sodium 139 136 - 145 mmol/L 03/10/2023 5:51 AM [facility] Potassium 4.5 3.5 - 4.5 mmol/L 03/10/2023 5:51 AM [facility] Chloride 108(H) 98 - 107 mmol/L 03/10/2023 5:51 AM [facility] CO2 26 22 - 29 mmol/L 03/10/2023 5:51 AM [facility] Glucose 103 70 - 115 mg/dL 03/10/2023 5:51 AM [facility] Albumin 3.0(L) 3.4 - 5.0 g/dL 03/10/2023 5:51 AM [facility] Calcium 8.6 8.4 - 10.2 mg/dL 03/10/2023 5:51 AM [facility] Phosphorus 3.2 2.8 - 5.1 mg/dL 03/10/2023 5:51 AM [facility] Anion Gap 10 8 - 18 03/10/2023 5:51 AM CDT [facility] BUN/Creatinine Ratio 19 7 - 23 03/10/2023 5:51 AM CDT [facility] Osmolality Calculated 296 270 - 300 mOsm/kg 03/10/2023 5:51 AM CDT [facility] eGFR by CKD-EPI 40(L) >=90 mL/min/1.7 3 m2 03/10/2023 5:51 AM CDT [facility] Blood BLOOD SPECIMEN / Unknown Line Draw / Unknown 03/10/2023 5:11 AM CDT 03/10/2023 5:24 AM CDT Mehul Coronado MD LAB - CHEMISTRY ORDERAB LES Final Result Performing Organization Address City/[facility]/ZIP Co de Phone Number [address] [address], [place] [phone] * HEPATITIS C AB SCREEN RFLX NAAT QUANT (02/18/2023 3:20 AM CDT) Pathologist [facility] Hepatitis C Antibody Non-react abby Non-reac tive 02/18/2023 7:22 AM CDT [facility] Comment:Hepatitis C Antibody screen indicates no serologic [...] CDT Mehul Coronado MD LAB - CHEMISTRY ORDERAB LES Final Result [address] [address], [place] [phone] * (ABNORMAL) PROTEIN CREATININE RATIO URINE RANDOM PNL (02/16/2023 7:38 AM CDT) Protein Urine 164 Not Established mg/dL 02/16/2023 8:03 AM CDT [facility] Creatinine Urine 30 Not Established mg/dL 02/16/2023 8:03 AM [facility] Protein/Creati nine Ratio Urine 5.47(H) <0.10 02/16/2023 8:03 AM T [facility] Urine URINE SPECIMEN OBTAINED BY CLEAN CATCH PROCEDURE / Unknown Collection / Unknown 02/16/2023 7:38 AM CDT 02/16/2023 7:41 AM CDT us Mehul Coronado MD LAB - URINE CHEMISTRY O RDERABLES Final Result Performing Organization Address City/[facility]/ZIP Co de Phone Number [facility] [address] [place] [address], [facility] [phone] * (ABNORMAL) HEMOGLOBIN A1C (02/16/2023 1:23 AM CDT) Hemoglobin A1c 9.6(H) <=5.6 % 02/16/2023 9:35 AM [facility] Estimated Average Glucose 229 mg/dL 02/16/2023 9:35 AM [facility] Comment: HbA1c Interpretation: Normal : < 5.7% Pre-diabetes: 5.7-6.4% Diabetes: Equal to or greater than 6.5% Test results diagnostic of diabetes should be repeated for confirmation. Treatment target values recommended by ADA and other clinical organizations should be used to evaluate metabolic control in patients. Reference: [employer] Diabetes Association, Standards of Care in Diabetes -2020 In patients 70 years and older consider HbA1c target range of 7.0-7.5% (Reference: Antwan Aldana et al. JAMDA. 2012) The Sebia assay for the measurement of HbA1c is a National Glycohemoglobin Standardization Program (NGSP) certified method. Blood BLOOD SPECIMEN / Unknown Venipuncture / Unknown 02/16/2023 1:23 AM CDT 02/16/2023 1:29 AM CDT us Mehul Coronado MD LAB - CHEMISTRY ORDERAB LES Final Result [facility] [address] [place] [address], [facility] [phone] from Last 3 Months or Most Recently Relevant to Health Maintenance Additional Health Concerns Infection Onset Date Last Indicated MRSA 02/16/2023 02/23/2023 Insurance MEDICARE MEDICARE Advance Directives * Full Code (Latest Code Status on File) Date Activated Date Inactivated Comments 02/16/2023 12:51 AM 03/10/2023 11:28 PM Care Teams Election Assistant Relationship Specialty Start Date End Date Lewis Chopra MD [address] [place] [id number] PCP - General 02/17/23
--- OUTSIDE RECORDS SUMMARY | 2025-02-19 12:40 | XMS_ITS | Encounter Summary ---
Author Organization [facility] Address [address] [place] [address] Care Team Providers Care Construction Trades Teacher Name Role Phone Lewis Chopra MD Primary Care Provider [phone] Encounter Details Date Type Department Care Team (Late st Contact Info) Description 03/16/2023 Telephone [facility] - Infectious Disease [address] [facility], [facility] [place] [address] Harrison Titus MD [facility] [place] [address] Social History Tobacco Use Types [...] hard at all 02/16/2023 [facility] [place] of Occupat ional Health - Occupational Stress [...] slept in a fdc (including now)? 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 ANTIBIOTIC THERAPY appt rescheduled to 04/12/2023 because he will have NO transportation. Schedule conflict. The Rehab center is [facility], , contact is Amaya over scheduling and transportation. Give her a call to reschedule and with any questions. Thanks. Patient Call Back number: [phone] documented in this encounter Plan of Treatment Not on file documented as of this encounter Visit Diagnoses Not on filedocumented in this encounter Additional Health Concerns Infection Onset Date Last Indicated Resolved Time MRSA 02/16/2023 02/23/2023 documented as of this encounter Care Teams Construction Trades Teacher Relationship Specialty Start Date End Date Lewis Chopra MD [address] [place] [address] PCP - General 02/17/23 documented as of this encounter
--- OUTSIDE RECORDS SUMMARY | 2025-02-19 12:40 | XMS_ITS | Encounter Summary ---
Author Organization [facility] Address [address] [place] [address] Care Team Providers Care Phlebotomist Supervisor/Instructor Name Role Phone Jaya Dailey MD Primary Care Provider [phone] Abelardo Gastelum MD Unavailable [phone] Encounter Details Date Type Department Care Team (Late st Contact Info) Description 08/09/2023 Telephone [facility] Radiology [address] [place] [address] Sheree Vasquez RN Social History Tobacco Use [...] often do you attend chur ch or confucianism services? Never 07/28/2023 Do you belong to any clubs o r organizations such as voodoo groups, unions, fraternal or athletic groups, or [...] [place] (including [place])? No 07/28/2023 Personal Safety Answer Date Recorded Have you ever been in or are you currently in a harmful physical or emotional relationship or is someone making you feel afraid or unsafe? Denies 08/12/2023 Sex and Gender Information Value Date Recorded Sex Assigned at Not on file Legal Sex Male 3:19 AM HEAD WOOD GRINDER Gender Identity Not on file Sexual Orientation [...] Time MRSA 02/14/2023 07/17/2023 01/13/2024 3:05 AM HEAD WOOD GRINDER CRE 07/17/2023 07/17/2023 MDR gram neg/ESBL 07/17/2023 07/17/2023 documented as of this encounter Care Teams Phlebotomist Supervisor/Instructor Relationship Specialty Start Date End Date Jaya Dailey MD PCP - General Family Medicine 01/18/19 Abelardo Gastelum MD [address] [facility]PT [place] [address] Orthopedic Surgery 05/09/23 documented as of this encounter
--- OUTSIDE RECORDS SUMMARY | 2025-02-19 12:40 | XMS_ITS | Referral Summary ---
Author Organization [facility] Address [address] [place] [address] Care Team Providers Care Motors And Generators Inspector Name Role Phone Jaya Dailey MD Primary Care Provider Abelardo Gastelum MD Unavailable Encounters Date Type Department Care Team Description 12/03/2024 Telephone [facility] Surgery [address] [place] [address] [address] [place] [address] Pretty, Lupe, RMA from Last [...] 1 tablet (25 mcg total) by mouth wheat shipper before breakfast Given at 6 am 30 [...] 09/23/2023 Assessment & Plan (09/23/2023 4:10 PM SLIVER MACHINE OPERATOR): By hx suspect more gas/bloating Consider constipation [...] 08/01 Assessment & Plan (09/23/2023 4:09 PM SLIVER MACHINE OPERATOR): Wound care following Still wrapped No active [...] 08/01/2023 Assessment & Plan (09/23/2023 4:09 PM SLIVER MACHINE OPERATOR): Multifactorial Also obstructive Cont murillo Assessment & Plan (08/11/2023 8:25 PM CDT): Has catheter Staff to arrange urology fu for xchg Assessment & Plan (08/05/2023 4:24 PM CDT): Has murillo in place, hx of SAMANTA, unlikely to improve Assessment & Plan (08/01/2023 7:45 PM CDT): Cont spc Rt samanta Has 10 uro appt Encounter for examination for admission to [facility] 07/28/2023 Chronic atrial fibrillation 07/28/2023 Assessment & [...] to obtain cardiac clearance but patients primary miniature train driver will not give d/t not seeing in [...] 04/28/2023 Assessment & Plan (11/16/2023 4:16 PM SLIVER MACHINE OPERATOR): Multifactorial related to chronic illness and cauda [...] 03/25/2023 Assessment & Plan (11/16/2023 4:16 PM SLIVER MACHINE OPERATOR): Currently rate controlled. Continue metoprolol. Discussed with [...] 02/16/2023 Assessment & Plan (11/16/2023 4:16 PM SLIVER MACHINE OPERATOR): Currently compensated. Continue metolazone metoprolol. Assessment & [...] (07/04/2023 2:40 PM CDT): Was able to family resource coordinator parallal bars with tx. Slow but consistent progress. Continue to [facility]. Assessment & Plan (06/27/2023 11:00 AM [...] (01/30/2019): Added automatically from request for surgery [id number] Diabetic polyneuropathy asso ciated with type 2 [...] lopressor Assessment & Plan (01/05/2018 11:41 AM SLIVER MACHINE OPERATOR): Controlled. Continue with metoprolol. Monitor blood pressure [...] lispro Assessment & Plan (01/05/2018 11:42 AM SLIVER MACHINE OPERATOR): Insulin pump being held for now. SSI [...] CDT): Brought this to the attention of accessibility lift technician Halina who will ask for an air [...] 03/25/2023 Assessment & Plan (01/05/2018 11:39 AM SLIVER MACHINE OPERATOR): Troponin peaked at 35.95. EKG as noted above. Cardiology has been consulted and pt is now s/p cardiac catheterization with possible plans to re-enter for further intervention. ASA, Brillinta, Bb, Sony, and Statin ordered. Continue with telemetry. Smoking addiction 01/05/2018 03/25/2023 Assessment & Plan (01/05/2018 11:42 AM SLIVER MACHINE OPERATOR): Counseled on cessation. Morbid obesity 01/05/2018 03/25/2023 Assessment & Plan (01/05/2018 11:44 AM SLIVER MACHINE OPERATOR): Pt reports a weight loss of 30+ [...] How often do you attend chur or zoroastrianism services? Never 07/28/2023 Do you belong to any clubs o r organizations such as mandaeism groups, unions, fraternal or athletic groups, or [...] slept in a [facility] (including now)? No 07/28/2023 Personal Safety Answer Date Recorded Have you ever been in or are you currently in a harmful physical or emotional relationship or is someone making you feel afraid or unsafe? Denies 01/29/2024 Sex and Gender Information Value Date Recorded Sex Assigned at Not on file Legal Sex Male 3:19 AM SLIVER MACHINE OPERATOR Gender Identity Not on file Sexual [...] on file Medical Devices Implanted Type Area Help Desk Specialist Device Identifier Shelf Expiration Date Model / Serial / Lot [employer] Zbigniew [id number] Synergy 2.5mm 24mm 144cm Radiopaque 1 Access Port Inflation Lumen - [id number] Implanted:Qty: 1 on 02/22/2019 by Brock Carr MD at [facility] Stent N/A: Heart [employer] Zbigniew 11/13/2020 [id number] / / [id number] [employer]bigniew [id number] Synergy 3mm 20mm 144cm Radiopaque 1 Access Port Inflation Lumen - [id number] Implanted:Qty: 1 on 02/22/2019 by Brock Carr MD at [facility] Stent N/A: Heart [employer] Zbigniew 11/08/2020 [id number] / / [id number] Insulin Pump Abdomen System Coronary Stent Synergy Pebax Everolimus Eluting Bois Forte Chromium Plga L16 Mm L144 Cm Od2.5 Mm Radiopaque 1 Access Port Inflation Lumen Accepts .014 In Guidewire - [id number] Implanted:Qty: 1 on 01/04/2018 by Ofelia Ruiz MD at [facility] [employer] Zbigniew 09/19/2018 [id number] / / [id number] System Coronary Stent Synergy Pebax Everolimus Eluting [employer] Chromium Plga L20 Mm L144 Cm Od2.5 Mm Radiopaque 1 Access Port Inflation Lumen Accepts .014 In Guidewire - [id number] Implanted:Qty: 1 on 01/04/2018 by Ofelia Ruiz MD at [facility] [employer] 10/18/2018 [id number] / / [id number] Daig Zbigniew/[employer] [id number] Angio-Seal Vip Bondek-Plus 6fr .035in 70cm Hemostatic Latex Free - [id number] Implanted:Qty: 1 on 02/22/2019 by Brock Carr MD at [facility] Right: Groin Daig Zbigniew/[employer] 10/06/2019 [id number] / / [id number] Procedures Procedure Name Priority Date/Time Associated Diagnosis Comments POCT LIPID PANEL Routine 08/08/2024 10:5 4 AM CDT Lipid screening EGFR Routine 07/29/2023 7:15 AM CDT HEMOGLOBIN A1C Routine 05/02/2023 8:[address] ABDOMEN PELVIS WO CONTRAST ED 02/14/2023 10:33 AM CDT ALBUMIN CREATININE RATIO, URINE Routine 11/06/2019 7:26 AM SLIVER MACHINE OPERATOR from Last 3 Months or Most Recently [...] MD LAB BLOOD ORDERABLES Stephanie l Result [address] Department [place] [address] * (ABNORMAL) Hemoglobin A1c (05/02/2023 8:35 AM CDT) Hgb A1C 5.7(H) 4.0 - 5.6 % [facility] Comment:Testing performed by : [address] [address] Estimated Average Glucose 117 mg/dL [facility] Comment: The ADA recommends reporting an estimated Average Glucose (eAG) with all Hemoglobin A1c results using the equation derived from a study of 507 normal and diabetic adults. Minority populations were underrepresented and children were not included. (Diabetes Care 31:8052-1326, 2008). The eAG is not equivalent to a fasting glucose. Testing performed by: [address] [address] Blood 05/02/2023 8:35 AM CDT 05/02/2023 9:24 AM CDT us Bennie Oliveira MD LAB BLOOD ORDERABLES Final R esult [facility] [address] [facility] Department [place] [address] * CT Abdomen Pelvis WO Contrast (02/14/2023 [...] Harrison Islas M.D. KR T: Report ID: [id number] Reading Location: [id number] Procedure Note Harrison Islas MD - 02/14/2023 [...] by Harrison Islas M.D. T: Report ID: [id number] Reading Location: [place] [address] Roy [address] IMG [address] PROCEDURES Final Res ult * (ABNORMAL) Albumin Creatinine Ratio, Urine (11/06/2019 7:26 AM SLIVER MACHINE OPERATOR) Creatinine, ur 57 20 - 320 mg/dL [...] within a diagnostic category. 11/06/2019 7:26 AM SLIVER MACHINE OPERATOR 11/06/2019 7:29 AM SLIVER MACHINE OPERATOR Narrative Resulting Agency Comment Performing Organization Information: Site ID: [place] Name: [facility] Address: [address] [place] [address] Director: Kali Sheppard D.O., MPH Anu [facility] LAB URINE ORDERABLES Fi nal Result JESUS MANUEL KEN [employer] [place] [employer] [place] from Last 3 Months or Most Recently Relevant to Health Maintenance Additional Health Concerns Infection Onset Date Last Indicated CRE 07/17/2023 07/17/2023 MDR gram neg/ESBL 07/17/2023 07/17/2023 Insurance [facility] [facility] MEDIC[facility] ADVANTAGE MEDICARE [employer] [place] Advance Directives For more information, please contact: [phone] Documents on File Type Date Recorded Patient Marketing Teacher Expl anation ADVANCE DIRECTIVE 05/02/2023 11:29 AM [...] 8:26 AM 07/13/2023 4:49 AM Care Teams Motors And Generators Inspector Relationship Specialty Start Date End Date Jaya Dailey MD PCP - General Family Medicine 01/18/19 Abelardo Gastelum MD [address] [facility] [place] [address] Orthopedic Surgery 05/09/23
--- OUTSIDE RECORDS SUMMARY | 2025-02-19 12:40 | XMS_ITS | Clinical Summary ---
Author Organization [facility] D Address [address] [place] [address] Care Team Providers Care Concessions Manager Name Role Phone Jaya Dailey MD Primary Care Provider + [phone] Abelardo Gastelum MD Unavailable Allergies No known [...] 1 tablet (25 mcg total) by mouth senior clinical research scientist before breakfast Given at 6 am 30 [...] 09/23/2023 Assessment & Plan (09/23/2023 4:[address] JUDGE): By hx suspect more gas/bloating Consider constipation [...] 08/01 Assessment & Plan (09/23/2023 4:[address] JUDGE): Wound care following Still wrapped No active [...] 08/01/2023 Assessment & Plan (09/23/2023 4:[address] JUDGE): Multifactorial Also obstructive Cont murillo Assessment & Plan (08/11/2023 8:25 PM CDT): Has catheter Staff to arrange urology fu for xchg Assessment & Plan (08/05/2023 4:24 PM CDT): Has murillo in place, hx of SAMANTA, unlikely to improve Assessment & Plan (08/01/2023 7:45 PM CDT): Cont spc Rt samanta Has 10 uro appt Encounter for examination for admission to [facility] 07/28/2023 Chronic atrial fibrillation 07/28/2023 Assessment [...] to obtain cardiac clearance but patients primary adding machine mechanic will not give d/t not seeing in [...] 04/28/2023 Assessment & Plan (11/16/2023 4:[address] JUDGE): Multifactorial related to chronic illness and cauda [...] 03/25/2023 Assessment & Plan (11/16/2023 4:[address] JUDGE): Currently rate controlled. Continue metoprolol. Discussed with [...] 02/16/2023 Assessment & Plan (11/16/2023 4:[address] JUDGE): Currently compensated. Continue metolazone metoprolol. Assessment & [...] (07/04/2023 2:40 PM CDT): Was able to revolving inventory clerk parallal bars with tx. Slow but consistent progress. Continue to [facility]. Assessment & Plan (06/27/2023 11:00 [...] (01/30/2019): Added automatically from request for surgery [id number] Diabetic polyneuropathy asso ciated with type 2 [...] lopressor Assessment & Plan (01/05/2018 11:[address] JUDGE): Controlled. Continue with metoprolol. Monitor blood pressure [...] lispro Assessment & Plan (01/05/2018 11:[address] JUDGE): Insulin pump being held for now. SSI [...] CDT): Brought this to the attention of tour driver Halina who will ask for an [...] 03/25/2023 Assessment & Plan (01/05/2018 11:[address] JUDGE): Troponin peaked at 35.95. EKG as noted above. Cardiology has been consulted and pt is now s/p cardiac catheterization with possible plans to re-enter for further intervention. ASA, Brillinta, Bb, Sony, and Statin ordered. Continue with telemetry. Smoking addiction 01/05/2018 03/25/2023 Assessment & Plan (01/05/2018 11:[address] JUDGE): Counseled on cessation. Morbid obesity 01/05/2018 03/25/2023 Assessment & Plan (01/05/2018 11:[address] JUDGE): Pt reports a weight loss of 30+ pounds but has recently began to gain the weight back. Encouraged to begin a weight loss regimen. 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 04/28/2023 Encounters Date Type Department Care Team Description 12/03/2024 Telephone [facility] Surgery [address] [place] [address] [address] [place] [address] Lupe Pretty RMA from Last [...] DTI left heel per Raquel nurse at [facility] they are treating . Pneumonia 02/2023 see [...] often do you attend chur ch or presybeterian services? Never 07/28/2023 Do you belong to any clubs o r organizations such as faith groups, unions, fraternal or athletic groups, or [...] place to sleep or slept in a intermediate (including now)? No 07/28/2023 Personal Safety Answer Date Recorded Have you ever been in or are you currently in a harmful physical or emotional relationship or is someone making you feel afraid or unsafe? Denies 01/29/2024 Sex and Gender Information Value Date Recorded Sex Assigned at Not on file Legal Sex Male 3:[address] JUDGE Gender Identity Not on file Sexual Orientation [...] 2023-2 5 season) 2024 11/13/2021, 02/09/2021, 01/19/2021 eGFR 07/29/2024 07/29/2023, 07/09, 07/18/2023, Additional history exists Fall Risk Assessment 08/12/2024 08/12/2023 Influenza Vaccine (Season Ended) 2025 Lipid Panel 08/08/2025 08/08/2024, 03/08, 06/22/2021, Additional history exists DTaP/Tdap/Td Vaccine (2 - Td or Tdap) 01/28/2034 01/29/2024 Abdominal Aortic Aneurysm (A AA) Screen Completed 02/14/2023 Medical Devices Implanted Type Area Magazine Repairer Device Identifier Shelf Expiration Date Model / Serial / Lot [employer] Zbigniew [id number] Synergy 2.5mm 24mm 144cm Radiopaque 1 Access Port Inflation Lumen - [id number] Implanted:Qty: 1 on 02/22/2019 by Brock Carr MD at [facility] Stent N/A: Heart [employer] Zbigniew 11/13/2020 [id number] / / [id number] [employer] Zbigniew [id number] Synergy 3mm 20mm 144cm Radiopaque 1 Access Port Inflation Lumen - [id number] Implanted:Qty: 1 on 02/22/2019 by Brock Carr MD at [facility] Stent N/A: Heart [employer] Zbigniew 11/08/2020 [id number] / / [id number] Insulin Pump Abdomen System Coronary Stent Synergy Pebax Everolimus Eluting [place] Chromium Plga L16 Mm L144 Cm Od2.5 Mm Radiopaque 1 Access Port Inflation Lumen Accepts .014 In Guidewire - [id number] Implanted:Qty: 1 on 01/04/2018 by Ofelia Ruiz MD at [facility] [employer] Zbigniew 09/19/2018 [id number] / / [id number] System Coronary Stent Synergy Pebax Everolimus Eluting [place] Chromium Plga L20 Mm L144 Cm Od2.5 Mm Radiopaque 1 Access Port Inflation Lumen Accepts .014 In Guidewire - [id number] Implanted:Qty: 1 on 01/04/2018 by Ofelia Ruiz MD at [facility] [employer] Zbigniew 10/18/2018 [id number] / / [id number] Daig Zbigniew/[employer] [id number] Angio-Seal Vip Bondek-Plus 6fr .035in 70cm Hemostatic Latex Free - [id number] Implanted:Qty: 1 on 02/22/2019 by Brock Carr MD at [facility] Right: Groin Daig Zbigniew/[employer] 10/06/2019 [id number] / / [id number] Procedures Procedure Name Priority Date/Time Associated Diagnosis Comments POCT LIPID PANEL Routine 08/08/2024 10:5 4 AM CDT Lipid screening EGFR Routine 07/29/2023 7:15 AM CDT HEMOGLOBIN A1C Routine 05/02/2023 8:[address] ABDOMEN PELVIS WO CONTRAST ED 02/14/2023 10:33 AM CDT ALBUMIN CREATININE RATIO, URINE Routine 11/06/2019 7:[address] JUDGE from Last 3 Months or Most Recently [...] ORDERABLES Stephanie l Result Performing Organization Address [facility] Co de Phone Number RAHUL [address] [address] * (ABNORMAL) Hemoglobin A1c (05/02/2023 8:35 AM CDT) Hgb A1C 5.7(H) 4.0 - 5.6 % [facility] Comment:Testing performed by : [address] [address] Estimated Average Glucose 117 mg/dL [facility] Comment: The ADA recommends reporting an estimated Average Glucose (eAG) with all Hemoglobin A1c results using the equation derived from a study of 507 normal and diabetic adults. Minority populations were underrepresented and children were not included. (Diabetes Care 31:2345-0966, 2008). The eAG is not equivalent to a fasting glucose. Testing performed by: [address] [address] Blood 05/02/2023 8:35 AM CDT 05/02/2023 9:24 AM CDT Bennie Oliveira MD LAB BLOOD ORDERABLES Final R esult Performing Organization Address [facility] Co de Phone Number JOSE [address] [address] * CT Abdomen Pelvis WO Contrast (02/14/2023 [...] signed by Harrison FARFAN T: Report ID: [id number] Reading Location: [place] [address] Procedure Note Harrison Islas MD - 02/14/2023 [...] Harrison Islas M.D. KR T: Report ID: [id number] Reading Location: [place] [address] Nico Roy [address] IMG CT PROCEDURES Final Res ult * (ABNORMAL) Albumin Creatinine Ratio, Urine (11/06/2019 7:[address] JUDGE) Creatinine, ur 57 20 - 320 mg/dL [place] [facility] [place] Microalbumin, ur 6.4 See Note: mg/dL [facility] Comment: Reference Range: Reference Range Not established Microalbumin/creat ratio 112(H) <30 mcg/mg creat [facility] Comment: The ADA defines abnormalities in albumin excretion as follows: Category Result (mcg/mg creatinine) Normal <30 Microalbuminuria 30-299 Clinical albuminuria > OR = 300 The ADA recommends that at least two of three specimens collected within a 3-6 month period be abnormal before considering a patient to be within a diagnostic category. 11/06/2019 7:[address] JUDGE 11/06/2019 7:[address] JUDGE Narrative Resulting Agency Comment Performing Organization Information: Site ID: [place] Name: [facility] Address: [address] [place], [place] [address] [address] Director: Kali Sheppard D.O., MPH Anu [facility] URINE ORDERABLES nal Result [facility] from Last 3 Months or Most Recently Relevant to Health Maintenance Additional Health Concerns Infection Onset Date Last Indicated CRE 07/17/2023 07/17/2023 MDR gram neg/ESBL 07/17/2023 07/17/2023 Insurance [employer] [facility] MEDICARE ADVANTAGE MEDICARE [facility] Advance Directives For more information, please contact: [phone] Documents on File Type Date Recorded Patient Firearms Expert Expl anation ADVANCE DIRECTIVE 05/02/2023 11:29 AM [...] 8:26 AM 07/13/2023 4:49 AM Care Teams Concessions Manager Relationship Specialty Start Date End Date Jaya Dailey MD PCP - General Family Medicine 01/18/19 Abelardo Gastelum MD [address] [facility] [place] [address] Orthopedic Surgery 05/09/23
--- OUTSIDE RECORDS SUMMARY | 2025-02-19 12:40 | XMS_ITS | Continuity of Care Document ---
Author Organization [facility] Address [address] [place] [address] Phone Care Team Providers Care Ferryboat Operator Cable Name Role Phone Ivis VILLALTA, Claudy Unavailable Unavailable Advance Directives Directive Yes / No Effective Date File Name No Information Encounters Encounter Description Practice Location Reason(s) For Visit Diagnoses Date Provider Providers Copied on Encounter [facility], [address], [place], [place], [id number], [place] tel:[phone] [facility] No Information Ivis Loco. [address] , [place], [place], [id number], [place]. tel:[phone] Referring Provider: Hong Hernandez DO, [address], [place], [address]. tel:[phone] Family History Family Member Type Diagnosis Age At Onset No Information Payers Payer name Insurance type Covered republican ID Authoriza tion(s) [id number] OPEN ACCESS I II III CI [id number] 1 Social History Type Description Quantity Date [...]
--- OUTSIDE RECORDS SUMMARY | 2025-02-19 12:40 | XMS_ITS | Clinical Summary ---
Author Organization [facility] Lisy Diaz Address [address] [place] [address] Care Team Providers Care Word Processing Specialist Name Role Phone Jaya Dailey MD Primary Care Provider [phone] Allergies No known active allergies Medications aspirin [...] on file Legal Sex Male 3:40 PM AQUATIC INSTRUCTOR Gender Identity Not on file Sexual Orientation Not on file Last Filed Vital Signs Vital Sign Reading Time Taken Comments Blood Pressure 133/49 01/03/2023 2:03 PM AQUATIC INSTRUCTOR Pulse 73 01/03/2023 2:34 PM AQUATIC INSTRUCTOR Temperature 36.4 C (97.6 F) 01/03/2023 2:03 PM AQUATIC INSTRUCTOR Respiratory Rate 10 01/03/2023 2:03 PM AQUATIC INSTRUCTOR Oxygen Saturation 98% 01/03/2023 2:03 PM AQUATIC INSTRUCTOR Inhaled Oxygen Concentration - - Weight 181.4 kg (400 lb) 01/03/2023 2:03 PM AQUATIC INSTRUCTOR Height 176.8 cm (5' 9.6 ) 01/03/2023 2:03 PM AQUATIC INSTRUCTOR Body Mass Index 58.06 01/03/2023 2:03 PM AQUATIC INSTRUCTOR Plan of Treatment Health Maintenance Due Date [...] 2024 Insurance MEDICARE PART A AND B [facility] MEDICARE PART A AND B Care Teams Word Processing Specialist Relationship Specialty Start Date End Date Jaya Dailey MD [address] [place] [address] PCP - General Family Practice 01/03/23
--- OUTSIDE RECORDS SUMMARY | 2025-02-19 12:40 | XMS_ITS | Clinical Summary ---
Author Organization [facility] [employer] Address [address] [facility] [place] [address] Care Team Providers Care Canceling Machine Operator Name Role Phone Lewis Chopra MD Primary Care Provider Source Comments [facility] [employer]non-owned Affiliates and Associated Physician Practices is amultiple site organization consisting of ambulatory clinics and hospital sitesin [place], [place], [place] and [place]. This disclosure is being madepursuant to the Care Everywhere program and may not contain all information available regarding this patient. Last updated 18.[facility] [employer] 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 Not hard at all 02/16/2023 [facility] - Occupational Stress [...] place to sleep or slept in a assisted (including now)? No 02/16/2023 Sex and Gender Information Value Date Recorded Sex Assigned at Not on file Legal Sex Male 7:47 PM PLASTIC FABRICATOR Gender Identity Not on file Sexual Orientation [...] 7 - 26 mg/dL 03/10/2023 5:51 AM [facility] Creatinine 1.84(H) 0.71 - 1.16 mg/dL 03/10/2023 5:51 AM [facility] Sodium 139 136 - 145 mmol/L 03/10/2023 5:51 AM [facility] Potassium 4.5 3.5 - 4.5 mmol/L 03/10/2023 5:51 AM [facility] Chloride 108(H) 98 - 107 mmol/L 03/10/2023 5:51 AM [facility] CO2 26 22 - 29 mmol/L 03/10/2023 5:51 AM [facility] Glucose 103 70 - 115 mg/dL 03/10/2023 5:51 AM [facility] Albumin 3.0(L) 3.4 - 5.0 g/dL 03/10/2023 5:51 AM [facility] Calcium 8.6 8.4 - 10.2 mg/dL 03/10/2023 5:51 AM [facility] Phosphorus 3.2 2.8 - 5.1 mg/dL 03/10/2023 5:51 AM [facility] Anion Gap 10 8 - 18 03/10/2023 5:51 AM CDT [facility] BUN/Creatinine Ratio 19 7 - 23 03/10/2023 5:51 AM CDT [facility] Osmolality Calculated 296 270 - 300 mOsm/kg 03/10/2023 5:51 AM CDT [facility] eGFR by CKD-EPI 40(L) >=90 mL/min/1.7 3 m2 03/10/2023 5:51 AM CDT [facility] Blood BLOOD SPECIMEN / Unknown Line Draw / Unknown 03/10/2023 5:11 AM CDT 03/10/2023 5:24 AM CDT Mehul Coronado MD LAB - CHEMISTRY ORDERAB LES Final Result Performing Organization Address City/[facility]/ZIP Co de Phone Number [address] [address], [place] [phone] * HEPATITIS C AB SCREEN RFLX NAAT QUANT (02/18/2023 3:20 AM CDT) Pathologist [facility] Hepatitis C Antibody Non-react abby Non-reac tive 02/18/2023 7:22 AM CDT [facility] Comment:Hepatitis C Antibody screen indicates no [...] LAB - CHEMISTRY ORDERAB LES Final Result [address] [address], [place] [phone] * (ABNORMAL) PROTEIN CREATININE RATIO URINE RANDOM PNL (02/16/2023 7:38 AM CDT) Protein Urine 164 Not Established mg/dL 02/16/2023 8:03 AM CDT [facility] Creatinine Urine 30 Not Established mg/dL 02/16/2023 8:03 AM [facility] Protein/Creati nine Ratio Urine 5.47(H) <0.10 02/16/2023 8:03 AM T [facility] Urine URINE SPECIMEN OBTAINED BY CLEAN CATCH PROCEDURE / Unknown Collection / Unknown 02/16/2023 7:38 AM CDT 02/16/2023 7:41 AM CDT us Mehul Coronado MD LAB - URINE CHEMISTRY O RDERABLES Final Result Performing Organization Address City/[facility]/ZIP Co de Phone Number [facility] [address] [place] [address], [facility] [phone] * (ABNORMAL) HEMOGLOBIN A1C (02/16/2023 1:23 AM CDT) Hemoglobin A1c 9.6(H) <=5.6 % 02/16/2023 9:35 AM [facility] Estimated Average Glucose 229 mg/dL 02/16/2023 9:35 AM [facility] Comment: HbA1c Interpretation: Normal : < 5.7% Pre-diabetes: 5.7-6.4% Diabetes: Equal to or greater than 6.5% Test results diagnostic of diabetes should be repeated for confirmation. Treatment target values recommended by ADA and other clinical organizations should be used to evaluate metabolic control in patients. Reference: [place] Diabetes Association, Standards of Care in Diabetes [...] LAB - CHEMISTRY ORDERAB LES Final Result [facility] [address] [place] [address], [facility] [phone] from Last 3 Months or Most Recently Relevant to Health Maintenance Additional Health Concerns Infection Onset Date Last Indicated MRSA 02/16/2023 02/23/2023 Insurance MEDICARE MEDICARE Advance Directives * Full Code (Latest Code Status on File) Date Activated Date Inactivated Comments 02/16/2023 12:51 AM 03/10/2023 11:28 PM Care Teams Canceling Machine Operator Relationship Specialty Start Date End Date Lewis Chopra MD [address] [place] [address] PCP - General 02/17/23
--- OUTSIDE RECORDS SUMMARY | 2025-02-19 12:40 | XMS_ITS | Clinical Summary ---
Author Organization [facility] Address [address] [place] [address] Phone Care Team Providers Care Auto Locator Name Role Phone Jaya Dailey MD Primary Care Provider [phone] Allergies No known active allergies Medications aspirin [...] Comments Blood Pressure 100/70 10/23/2020 11:23 AM GREASE RENDERER Pulse 72 10/23/2020 11:23 AM GREASE RENDERER Temperature 36.7 C (98 F) 10/23/2020 11:23 AM GREASE RENDERER Respiratory Rate - - Oxygen Saturation - - Inhaled Oxygen Concentration - - Weight 181 kg (400 lb) 10/23/2020 11:23 AM GREASE RENDERER Height 175.3 cm (5' 9 ) 10/23/2020 11:23 AM GREASE RENDERER Body Mass Index 59.07 10/23/2020 11:23 AM GREASE RENDERER Plan of Treatment Health Maintenance Due Date Last Done Comments Pneumococcal PPSV23/PCV13 65 + Years / Low and Medium Risk (1 of 4 - PCV) 2007 Influenza Vaccine (Season Ended) 2025 Insurance [employer] Care Teams Auto Locator Relationship Specialty Start Date End Date Jaya Dailey MD [address] [place] [address] PCP - General Family Medicine 10/21/20
--- OUTSIDE RECORDS SUMMARY | 2025-02-19 12:40 | XMS_ITS | Clinical Summary ---
Author Organization [facility] Address [address] [place] [address] Care Team Providers Care Rural Service Engineer Name Role Phone Unavailable Primary Care Provider [...]
--- OUTSIDE RECORDS SUMMARY | 2025-02-19 12:40 | XMS_ITS | Encounter Summary ---
Author Organization [facility] Address [address] [place] [address] Care Team Providers Care Defence Force Member Other Ranks Name Role Phone Jaya Dailey MD Primary Care Provider [phone] Abelardo Gastelum MD Unavailable Encounter Details Date Type Department Care Team (Late st Contact Info) Description 07/14/2023 Telephone [facility] Radiology [address] [place] [address] Rachael Rao RN Social History Tobacco Use [...] often do you attend chur ch or latter day services? Never 07/18/2023 Do you belong to any clubs o r organizations such as adventist groups, unions, fraternal or athletic groups, or [...] place to sleep or slept in a fpc (including now)? No 07/18/2023 Sex and Gender Information Value Date Recorded Sex Assigned at Not on file Legal Sex Male 3:19 AM LIFE MANAGEMENT TEACHER Gender Identity Not on file Sexual Orientation Not on file documented as of this encounter Plan of Treatment Not on file documented as of this encounter Visit Diagnoses Not on filedocumented in this encounter Additional Health Concerns Infection Onset Date Last Indicated Resolved Time MRSA 02/14/2023 07/17/2023 01/13/2024 3:05 AM LIFE MANAGEMENT TEACHER CRE 07/17/2023 07/17/2023 MDR gram neg/ESBL 07/17/2023 07/17/2023 documented as of this encounter Care Teams Defence Force Member Other Ranks Relationship Specialty Start Date End Date Jaya Dailey MD PCP - General Family Medicine 01/18/19 Abelardo Gastelum MD [address] [facility] DEPT [place]OPED[place] [address] Orthopedic Surgery 05/09/23 documented as of this encounter
[2025-02-19 12:43] VITALS: BP 133/78; PULSE 74; RESP 20; O2SAT 100
== END 2025-02-19 12:45 | disposition home or self-care (01) ==
PROVIDERS: Emergency Provider Emergency Medicine; PCP Family Medicine
DX: N39.0 Urinary tract infection, site not specified (principal); T83.090A Other mechanical complication of cystostomy catheter, initial encounter; E11.22 Type 2 diabetes mellitus with diabetic chronic kidney disease; N18.9 Chronic kidney disease, unspecified; I25.10 Atherosclerotic heart disease of native coronary artery without angina pectoris; I50.9 Heart failure, unspecified; G47.30 Sleep apnea, unspecified; F32.A Depression, unspecified; F41.9 Anxiety disorder, unspecified; I11.0 Hypertensive heart disease with heart failure; F17.210 Nicotine dependence, cigarettes, uncomplicated; Y82.8 Other medical devices associated with adverse incidents
CPT/HCPCS: 51705; 81001; 87086; 87186; 99283

== ENCOUNTER 2025-08-28 13:06 | Outpatient (CLI) | payer MEDICARE, OTHER, SELFPAY ==
--- NOTE | ~2025-08-28 | XR_ITS ---
EXAMINATION: XR chest 2V, 08/28/2025 16:45 CDT HISTORY: 1 mo of cough COMPARISON: No comparisons available. Technique: 2 views obtained. Findings: Mild pulmonary venous congestion. Minimal basilar infiltrates. No pneumothorax. Mild cardiomegaly. Mediastinal and hilar contours are within normal limits. Bony thorax no acute abnormality. Impression: Mild CHF. Early pneumonia suspected Reviewed, dictated and finalized at location P. Impression: Mild CHF. Early pneumonia suspected
[2025-08-28 17:43] LABS: Anion Gap 6 mmol/L (4-12); Blood Urea Nitrogen 28 mg/dL (9-20); Calcium 7.9 mg/dL (8.4-10.2); Carbon Dioxide 25 mmol/L (22-30); Chloride 106 mmol/L (98-107); Estimated Glomerular Filt Rate 33; Glucose 178 mg/dL (65-110); Potassium 4.6 mmol/L (3.4-5.0); Sodium 137 mmol/L (137-145)
--- OUTSIDE RECORDS SUMMARY | 2025-08-28 20:16 | XMS_ITS | Clinical Summary ---
Author Organization [facility] Care Team Providers Care Crown Ironer Name Role Phone Unavailable Primary Care Provider Unavailabl e Social History Tobacco Use Types Packs/Day Years Used Date Smoking Tobacco: Never Assessed Sex and Gender Information Value Date Recorded Sex Assigned at Not on file Legal Sex Male 3:22 PM INSPECTOR PACKER Gender Identity Not on file Sexual Orientation Not on file Plan of Treatment Health Maintenance Due Date Last Done Comments Hepatitis C Virus (HCV) Screening 1955 TdaP Immunization 1955 Cologuard 2002 Colonoscopy 2002 Colorectal Cancer Screening 2002 Immunochemical Fecal Occult Blood 2002 Pneumococcal Immunization (5 0+ years) (1 of 1 - PCV) 2007 Zoster Immunization (1 of 2) 2007 Influenza Immunization (#1) 2025 SARS-COV-2 Immunization ( - season) 2025 Respiratory Syncytial Virus (RSV) Immunization (Adult) (1 - 1-dose 75+ series) 2032 Hepatitis B Immunization Aged Out No longer eligible based on patient's age to complete this topic Human Papillomavirus (HPV) Immunization Aged Out No longer eligible b ased on patient's age to complete this topic Meningococcal Immunization (ACWY) Aged Out No longer eligible based on patient's age to complete this topic Rotavirus Immunization Aged Out No lo nger eligible based on patient's age to complete this topic
--- OUTSIDE RECORDS SUMMARY | 2025-08-28 20:16 | XMS_ITS | Clinical Summary ---
Author Organization [facility] Lisy Diaz Address [address] [place] [address] Care Team Providers Care Information Strategist Name Role Phone Jaya Dailey MD Primary Care Provider [phone] Allergies No known active allergies Medications aspirin [...] on file Legal Sex Male 3:40 PM CHIEF DEPUTY SHERIFF Gender Identity Not on file Sexual Orientation Not on file Last Filed Vital Signs Vital Sign Reading Time Taken Comments Blood Pressure 133/49 01/03/2023 2:03 PM CHIEF DEPUTY SHERIFF Pulse 73 01/03/2023 2:34 PM CHIEF DEPUTY SHERIFF Temperature 36.4 C (97.6 F) 01/03/2023 2:03 PM CHIEF DEPUTY SHERIFF Respiratory Rate 10 01/03/2023 2:03 PM CHIEF DEPUTY SHERIFF Oxygen Saturation 98% 01/03/2023 2:03 PM CHIEF DEPUTY SHERIFF Inhaled Oxygen Concentration - - Weight 181.4 kg (400 lb) 01/03/2023 2:03 PM CHIEF DEPUTY SHERIFF Height 176.8 cm (5' 9.6) 01/03/2023 2:03 PM CHIEF DEPUTY SHERIFF Body Mass Index 58.06 01/03/2023 2:03 PM CHIEF DEPUTY SHERIFF Plan of Treatment Health Maintenance Due Date [...] Flex Sig/CT Colonography Q 5 years 2002 RSV VACCINE (60+ or ) (1 - Risk 50-74 years 1-dose series) 2007 ZOSTER VACCINE (1 of 2) 2007 DIABETES HBA1C Q 6 MONTHS 08/18/2023 02/16/2023 INFLUENZA VACCINE (#1) 2025 Insurance MEDICARE PART A AND B [facility] MEDIC[facility] PART A AND B Care Teams Information Strategist Relationship Specialty Start Date End Date Jaya Dailey MD [address] [place] [address] PCP - General Family Practice 01/03/23
--- OUTSIDE RECORDS SUMMARY | 2025-08-28 20:16 | XMS_ITS | Encounter Summary ---
Author Organization [facility] Healthcare Address [address] [place] [address] Care Team Providers Care Package Dyer Name Role Phone Jaya Dailey MD Primary Care Provider + [phone] Abelardo Gastelum MD Unavailable [phone] Encounter Details Date Type Department Care Team (Late st Contact Info) Description 07/14/2023 Telephone [facility] Radiology [address] [place] [address] Rachael Rao RN Social History Tobacco Use Types Packs/Day Years Used Date Smoking Tobacco: Former Cigars Q uit: 2017 Smokeless Tobacco: Never Alcohol Use Standard Drinks/Week Comments Yes 0 (1 standard drink = 0.6 oz pur e alcohol) maybe 1x/year Social Connection and Isolation Panel Answer Date Recorded In a typical week, how many times do you talk on the phone with family, friends, or neighbors? More than three times a week 07/18/2023 How often do you get togethe r with friends or relatives? Twice a week 07/18/2023 How often do you attend chur ch or jehovah's witness services? Never 07/18/2023 Do you belong to any clubs o r organizations such as latter day groups, unions, fraternal or athletic groups, or [...] slept in a fdc (including now)? No 07/18/2023 Sex and Gender Information Value Date Recorded Sex Assigned at Not on file Legal Sex Male 3:19 AM VALIDATION ENGINEER Gender Identity Not on file Sexual Orientation Not on file documented as of this encounter Plan of Treatment Not on file documented as of this encounter Visit Diagnoses Not on filedocumented in this encounter Additional Health Concerns Infection Onset Date Last Indicated Resolved Time MRSA 02/14/2023 07/17/2023 01/13/2024 3:05 AM VALIDATION ENGINEER CRE 07/17/2023 07/17/2023 MDR gram neg/ESBL 07/17/2023 07/17/2023 documented as of this encounter Care Teams Package Dyer Relationship Specialty Start Date End Date Jaya Dailey MD PCP - General Family Medicine 01/18/19 Abelardo Gastelum MD [address] [facility] [place] [address] Orthopedic Surgery 05/09/23 documented as of this encounter
--- OUTSIDE RECORDS SUMMARY | 2025-08-28 20:16 | XMS_ITS | Clinical Summary ---
Author Organization [facility] Address [address] [place] [address] Care Team Providers Care Hardware Supplies Sales Representative Name Role Phone Jaya Dailey MD Primary Care Provider [phone] Encounters Date Type Department Care Team Description 07/19/2025 Telephone [facility] Medical [facility] - [address] [place] [address] Garett Rubin MD Reschedule from Last 3 Months Social History Tobacco Use Types Packs/Day Years Used Date Smoking Tobacco: Never Assessed Sex and Gender Information Value Date Recorded Sex Assigned at Not on file Legal Sex Male 7:32 PM CDT Gender Identity Not on file Sexual Orientation Not on file Plan of Treatment Upcoming Encounters Date Type Department Care Team (Late st Contact Info) Description 10/30/2025 10:40 AM RETAIL GENERAL MANAGER Office Visit [facility] Medical [facility] - [facility] [address] [facility], [address] [place] [id number] Garett Rubin MD [address] [place] [address] Health Maintenance Due Date Last Done Comments Colorectal Cancer Screening Colonoscopy (10 Years) 1955 Hepatitis C 1975 DTaP, Tdap and Td Vaccines ( 1 - Tdap) 1976 Pneumococcal Vaccine: 50+ Ye ars (1 of 1 - PCV) 2007 Zoster Vaccines (1 of 2) 2007 Annual Medicare Wellness Visit 2022 PHQ-2 (Physician Scott) 11/07/2024 COVID-19 Vaccine (1 - 2024-2 6 season) 2025 Influenza Adult (#1) 2025 RSV Immunization or 60+ Years (1 - 1-dose 75+ series) 2032 Hepatitis A Vaccines Aged Out No long er eligible based on patient's age to complete this topic Meningococcal B Vaccine Aged Out No l onger eligible based on patient's age to complete this topic Meningococcal Vaccine Aged Out No gabino lacie eligible based on patient's age to complete this topic RSV Immunizations Under 20 Months Aged Out No longer eligible based on patient's age to complete this topic Insurance [facility] UHC MEDICARE Care Teams Hardware Supplies Sales Representative Relationship Specialty Start Date End Date aJya Dailey MD [address] [address] PCP - General FAMILY PRACTICE 06/18/25
--- OUTSIDE RECORDS SUMMARY | 2025-08-28 20:16 | XMS_ITS | Encounter Summary ---
Author Organization [facility] Healthcare Address [address] [place] [address] Care Team Providers Care Coffee Taster Name Role Phone Jaya Dailey MD Primary Care Provider + [phone] Abelardo Gastelum MD Unavailable [phone] Encounter Details Date Type Department Care Team (Late st Contact Info) Description 08/09/2023 Telephone [facility] Radiology [address] [place] [address] Sheree Vasquez, RN Social History Tobacco Use Types Packs/Day [...] often do you attend chur ch or nondenominational services? Never 07/28/2023 Do you belong to [...] slept in a fpc (including now)? No 07/28/2023 Personal Safety Answer Date Recorded Have you ever been in or are you currently in a harmful physical or emotional relationship or is someone making you feel afraid or unsafe? Denies 08/12/2023 Sex and Gender Information Value Date Recorded Sex Assigned at Not on file Legal Sex Male 3:19 AM TOE FORMER Gender Identity Not on file Sexual Orientation [...] Time MRSA 02/14/2023 07/17/2023 01/13/2024 3:05 AM TOE FORMER CRE 07/17/2023 07/17/2023 MDR gram neg/ESBL 07/17/2023 07/17/2023 documented as of this encounter Care Teams Coffee Taster Relationship Specialty Start Date End Date Jaya Dailey MD PCP - General Family Medicine 01/18/19 Abelardo Gastelum MD [address] [facility] DE[place] [address] Orthopedic Surgery 05/09/23 documented as of this encounter
--- OUTSIDE RECORDS SUMMARY | 2025-08-28 20:16 | XMS_ITS ---
Author Organization [facility] Care Team Providers Care Rn Ccu Name Role Phone Hong Mendez Unavailable Unavailabl e Allergies and adverse reactions No Known Allergies Care Team Name Role Address Phone Organization Dates Hong Mendez PCP [address] [place], [address], [place] (Office): : [facility] 07/30/2023 - 03/08/2024 Immunizations Immunization Status Vaccine Details Vaccine Code CodeSystem Sebas e Notes Influenza completed Influenza, high-dose, split virus, quadrivalent, injectable, preservative free lotNumber: [id number] expiry: 04/14/2024 197 CVX created date: 08/05/2023 consent date: 08/04/2023 administered date: 08/03/2023 SARS-COV-2 (COVID-19) completed SARS-COV-2 (COVID-19) vaccine, mRNA, spike protein, LNP, preservative free, 30 mcg/0.3mL dose Step 2 of Multi-step with next step required 208 CVX created date: 08/02/2023 administered date: 02/09/2021 SARS-COV-2 (COVID-19) completed SARS-COV-2 (COVID-19) vaccine, mRNA, spike protein, LNP, preservative free, 30 mcg/0.3mL dose Step 1 of Multi-step with next step required 208 CVX created date: 08/02/2023 administered date: 01/19/2021 COVID-19 Pfizer Booster completed SARS-COV-2 (COVID-19) vaccine, mRNA, spike protein, LNP, preservative free, 30 mcg/0.3mL dose 208 CVX created date: 08/05/2023 administered date: 11/13/2021 Mental Status Section Date Assessment Total Score Description 03/08/2024 CAM 0 No delirium ind icated 02/05/2024 BIMS 14 cognitively int act CAM 0 No delirium ind icated PHQ-9 12 moderate depres shsata Insurance Providers Problems Problem # Description Date of onset Resolved Date Code CodeSystem Concern Status 1 PRESSURE ULCER OF LEFT BUTTOCK, STAGE 3 03/02/[address] active 2 CHRONIC KIDNEY DISEASE, STAGE 3B 07/30/[address] active 3 ACUTE AND CHRONIC RESPIRATORY FAILURE WITH HYPOXIA 07/29/[address] active 4 ANEMIA, UNSPECIFIED 07/29/[address] active 5 BODY MASS INDEX [BMI] 45.0-49.9, ADULT 07/29/[address] active 6 CHRONIC KIDNEY DISEASE, UNSPECIFIED 07/29/[address] active 7 CHRONIC OBSTRUCTIVE PULMONARY DISEASE, UNSPECIFIED 07/29/[address] active 8 EMPHYSEMA, UNSPECIFIED 07/29/[address] active 9 GASTRO-ESOPHAGEAL REFLUX DISEASE WITHOUT ESOPHAGITIS 07/29/[address] active 10 GENERALIZED ANXIETY DISORDER 07/29/[address] active 11 HYPERLIPIDEMIA, UNSPECIFIED 07/29/[address] active 12 HYPOTHYROIDISM, UNSPECIFIED 07/29/[address] active 13 MAJOR DEPRESSIVE DISORDER, RECURRENT, MODERATE 07/29/[address] active 14 MUSCLE WEAKNESS (GENERALIZED) 07/29/[address] active 15 MYOCARDIAL INFARCTION TYPE 2 07/29/[address] active 16 NEUROMUSCULAR DYSFUNCTION OF BLADDER, UNSPECIFIED 07/29/[address] active 17 OTHER LACK OF COORDINATION 07/29/[address] active 18 POLYNEUROPATHY, UNSPECIFIED 07/29/[address] active 19 PRESSURE ULCER OF LEFT HEEL, UNSTAGEABLE 07/29/[address] active 20 PRIMARY GENERALIZED (OSTEO)ARTHRITIS 07/29/[address] active 21 UNSPECIFIED SEVERE PROTEIN-CALORIE MALNUTRITION 07/29/[address] active 22 VENTRICULAR TACHYCARDIA, UNSPECIFIED 07/29/[address] active 23 WEAKNESS 07/29/[address] active 24 OTHER ACIDOSIS 03/06/[address] active 25 DIABETES INSIPIDUS 03/02/[address] active 26 DUODENAL ULCER, UNSPECIFIED ACUTE OR CHRONIC, WITHOUT HEMORRHAGE OR PERFORATION 03/02/[address] active 27 OTHER NONSPECIFIC ABNORMAL FINDING OF LUNG FIELD 03/02/[address] active 28 SEPSIS DUE TO METHICILLIN RESISTANT STAPHYLOCOCCUS AUREUS 02/26/[address] active 29 NEPHROTIC SYNDROME WITH UNSPECIFIED MORPHOLOGIC CHANGES 02/23/[address] active 30 ATHEROSCLEROSIS OF CORONARY ARTERY BYPASS GRAFT(S) WITHOUT ANGINA PECTORIS 02/17/[address] active 31 BACTEREMIA 02/17/[address] active 32 ESSENTIAL (PRIMARY) HYPERTENSION 02/17/[address] active 33 MORBID (SEVERE) OBESITY WITH ALVEOLAR HYPOVENTILATION 02/17/[address] active 34 OBSTRUCTIVE SLEEP APNEA (ADULT) (PEDIATRIC) 02/17/[address] active 35 TYPE 2 DIABETES MELLITUS WITH KETOACIDOSIS WITHOUT COMA 02/17/[address] active 36 UNSPECIFIED ATRIAL FIBRILLATION 02/17/[address] active 37 UNSPECIFIED DIASTOLIC (CONGESTIVE) HEART FAILURE 02/17/[address] active 38 CAUDA EQUINA SYNDROME 02/16/[address] active Reason for Referral No Reasons for Referral Entered Social History Social History Observation Description Start Date End Date Code Code System Current Smoking Status Tobacco smoking consumption unknown 193391728 SNOMED CT Sex Assigned At Male 1955 03928-2 [facility] Gender Identity Male 50338331983873 [address] Sexual Orientation Vital Signs Code Code System Vitals Name Values and Units Timing Information 49487-6 [facility] Pain Level Value=0.0 03/08/2024 2339-0 [facility] Blood Sugar Krram=159.0 Units=mg/dL 03/08/2024 9279-1 [facility] Respiratory Rate Value=18.0 Units=/m in 02/01/2024 8462-4 [facility] Blood Pressure-Diastolic Value=82 Un its=mmHg 02/01/2024 8480-6 [facility] Blood Pressure-Systolic Ftcaj=337 Un its=mmHg 02/01/2024 8310-5 [facility] Body Temperature Value=98.0 Units= F 02/01/2024 8867-4 [facility] Heart rate Value=82.0 Units=/min 08648-6 INC Weight Yhakp=826.6 Units=Lbs 25496-3 [facility] O2 % BldC Oximetry Value=97.0 Units= % 12/03/2023 8302-2 [facility] Height Value=68.0 Units=Inches 08/02/2023
--- OUTSIDE RECORDS SUMMARY | 2025-08-28 20:16 | XMS_ITS | Encounter Summary ---
Author Organization [facility] Address [address] [place] [address] Care Team Providers Care Layout Man Name Role Phone Lewis Chopra MD Primary Care Provider Encounter Details Date Type Department Care Team (Late st Contact Info) Description 03/16/2023 Telephone [facility] - Infectious Disease [address] [facility], [facility] [place] [address] Harrison Titus MD [facility] [place] [address] Social History Tobacco Use Types [...] and heating? Not hard at all 02/16/2023 [facility] - Occupational Stress [...] to sleep or slept in a senior living (including now)? No 02/16/2023 Sex and Gender Information Value Date Recorded Sex Assigned at Not on file Legal Sex Male 7:47 PM MECHANIC SOUND TECHNICIAN Gender Identity Not on file Sexual Orientation [...] Titus Reason for call: [facility] OP ANTIBIOTIC THERAPY appt rescheduled to 04/12/2023 because he will have NO transportation. Schedule conflict. The Rehab center is [facility], , contact is Amaya over scheduling and transportation. Give her a call to reschedule and with any questions. Thanks. Patient Call Back number: [phone] documented in this encounter Plan of Treatment Not on file documented as of this encounter Visit Diagnoses Not on filedocumented in this encounter Additional Health Concerns Infection Onset Date Last Indicated Resolved Time MRSA 02/16/2023 02/23/2023 documented as of this encounter Care Teams Layout Man Relationship Specialty Start Date End Date Lewis Chopra MD [address] [place] [address] PCP - General 02/17/23 documented as of this encounter
--- OUTSIDE RECORDS SUMMARY | 2025-08-28 20:16 | XMS_ITS | Clinical Summary ---
Author Organization [facility] D Address [address] [place] [id number] Care Team Providers Care Hydraulic Lift Driver Name Role Phone Jaya Dailey MD Primary Care Provider + [phone] Abelardo Gastelum MD Unavailable Allergies No known [...] 1 tablet (25 mcg total) by mouth manager professional development before breakfast Given at 6 am 30 [...] by mouth daily 30 tablet 11 4 Active aspirin 81 mg enteric coated tablet Take 1 tablet (81 mg total) by mouth daily 30 tablet 11 4 Active Active Problems Patient Care Coordination No [...] is a former smoker who quit in 2016. He is to have a follow-up chest x-ray prior to visit today. He is here for further evaluation and discussion. Problem Noted Date Diagnosed Date Abdominal bloating 09/23/2023 Assessment & Plan (09/23/2023 4:10 PM CONGREGATIONAL CARE PASTOR): By hx suspect more gas/bloating Consider constipation [...] 08/01 Assessment & Plan (09/23/2023 4:09 PM CONGREGATIONAL CARE PASTOR): Wound care following Still wrapped No active infection stable Assessment & Plan (08/11/2023 8:25 PM CDT): Wc following w tx in place Assessment & Plan (08/05/2023 4:24 PM CDT): Dw nurse, finishing up doxy abt for this, cont wc Assessment & Plan (08/01/2023 7:44 PM CDT): nurse seeing pt w me Cont wound care Finish up augmentin and other po abt Neurogenic bladder 08/01/2023 Assessment & Plan (09/23/2023 4:09 PM CONGREGATIONAL CARE PASTOR): Multifactorial Also obstructive Cont murillo Assessment & Plan (08/11/2023 8:25 PM CDT): Has catheter Staff to arrange urology fu for xchg Assessment & Plan (08/05/2023 4:24 PM CDT): Has murillo in place, hx of SAMANTA, unlikely to improve Assessment & Plan (08/01/2023 7:45 PM CDT): Cont spc Rt samanta Has 102 uro appt Encounter for examination for admission to [facility] 07/28/2023 Chronic atrial fibrillation 07/28/2023 Assessment [...] to obtain cardiac clearance but patients primary solution strategist will not give d/t not seeing in [...] 04/28/2023 Assessment & Plan (11/16/2023 4:16 PM CONGREGATIONAL CARE PASTOR): Multifactorial related to chronic illness and cauda [...] PM CDT): Cr at baseline. Continue to [facility]. Assessment & Plan (04/28/2023 3:58 PM CDT): Cmp ordered as follow up Nonsustained ventricular tachycardia 04/26/2023 Assessment & Plan (04/28/2023 3:56 PM CDT): Monitor for arrhythmia Acquired hypothyroidism 04/26/2023 Assessment & Plan (04/28/2023 3:57 PM CDT): Tsh ordered Hosp tsh reviewed Cont synthroid Macrocytic anemia 03/25/2023 Permanent atrial fibrillation 03/25/2023 Assessment & Plan (11/16/2023 4:16 PM CONGREGATIONAL CARE PASTOR): Currently rate controlled. Continue metoprolol. Discussed with [...] 02/16/2023 Assessment & Plan (11/16/2023 4:16 PM CONGREGATIONAL CARE PASTOR): Currently compensated. Continue metolazone metoprolol. Assessment & [...] (07/04/2023 2:40 PM CDT): Was able to bin filler parallal bars with tx. Slow but consistent progress. Continue to [facility]. Assessment & Plan (06/27/2023 11:00 AM [...] (01/30/2019): Added automatically from request for surgery [id number] Diabetic polyneuropathy asso ciated with type 2 [...] lopressor Assessment & Plan (01/05/2018 11:41 AM CONGREGATIONAL CARE PASTOR): Controlled. Continue with metoprolol. Monitor blood pressure [...] lispro Assessment & Plan (01/05/2018 11:42 AM CONGREGATIONAL CARE PASTOR): Insulin pump being held for now. SSI [...] CDT): Brought this to the attention of alumni coordinator Halina who will ask for an air [...] 03/25/2023 Assessment & Plan (01/05/2018 11:39 AM CONGREGATIONAL CARE PASTOR): Troponin peaked at 35.95. EKG as noted above. Cardiology has been consulted and pt is now s/p cardiac catheterization with possible plans to re-enter for further intervention. ASA, Brillinta, Bb, Sony, and Statin ordered. Continue with telemetry. Smoking addiction 01/05/2018 03/25/2023 Assessment & Plan (01/05/2018 11:42 AM CONGREGATIONAL CARE PASTOR): Counseled on cessation. Morbid obesity 01/05/2018 03/25/2023 Assessment & Plan (01/05/2018 11:44 AM CONGREGATIONAL CARE PASTOR): Pt reports a weight loss of 30+ [...] Myocardial infarction (HCC) Type 2 diabetes mellitus Anxiety Depression Arthritis Weakness of both legs 04/28/2023 Murillo catheter present 04/28/2023 Atrial fibrillation (HCC) CAD (coronary artery disease) STEMI (ST elevation myocardi al infarction) (HCC) Diastolic heart failure (HCC) Nonsustained ventricular tac hycardia (HCC) Diabetes mellitus CKD (chronic kidney disease) , stage III (HCC) Chronic respiratory failure with hypoxia (HCC) GERD (gastroesophageal reflux disease) Polyneuropathy due to type 2 diabetes mellitus (HCC) Neurogenic bladder Open wound of left heel see pics in [facility] from end of april 2023 Polyneuropathy Encounter for wound care 05/23/23 patient has puncture wound right lateral chest and DTI left heel per Raquel nurse at [facility] they are treating . Pneumonia 02/2023 see [...] 07/28/2023 How often do you attend chur Netotiate or caodaism services? Never 07/28/2023 Do you belong to any clubs o r organizations such as muslim groups, unions, fraternal or athletic groups, or [...] place to sleep or slept in a penitentiary (including now)? No 07/28/2023 Personal Safety Answer Date Recorded Have you ever been in or are you currently in a harmful physical or emotional relationship or is someone making you feel afraid or unsafe? Denies 01/29/2024 Sex and Gender Information Value Date Recorded Sex Assigned at Not on file Legal Sex Male 3:19 AM CONGREGATIONAL CARE PASTOR Gender Identity Not on file Sexual Orientation [...] 10:33 AM CDT Height 172.7 cm (5' 8) 08/08/2024 10:33 AM CDT Body Mass Index [...] 11/01/2023 05/02/2023, 02/05, 02/14/2023, Additional history exists eGFR 07/29/2024 07/29/2023, 07/09, 07/18/2023, Additional history exists Fall Risk Assessment 08/12/2024 08/12/2023 Covid-19 Vaccine (2024-12 6 season) 2025 11/13/2021, 02/09/2021, 01/19/2021 Influenza Vaccine (#1) 2025 Lipid Panel 08/08/2025 08/08/2024, 03/08, 06/22/2021, Additional history exists DTaP/Tdap/Td Vaccine (2 - Td or Tdap) 01/28/2034 01/29/2024 Abdominal Aortic Aneurysm (A AA) Screen Completed 02/14/2023 Medical Devices Implanted Type Area Filler Spreader Device Identifier Shelf Expiration Date Model / Serial / Lot Mavent Zbigniew [id number] Synergy 2.5mm 24mm 144cm Radiopaque 1 Access Port Inflation Lumen - [id number] Implanted:Qty: 1 on 02/22/2019 by Brock Carr MD at [facility] Stent N/A: Heart [place] [employer] Zbigniew 11/13/2020 [id number] / / [id number] [place] [employer]bigniew [id number] Synergy 3mm 20mm 144cm Radiopaque 1 Access Port Inflation Lumen - [id number] Implanted:Qty: 1 on 02/22/2019 by Brock Carr MD at [facility] Stent N/A: Heart [place] [employer] Zbigniew 11/08/2020 [id number] / / [id number] Insulin Pump Abdomen System Coronary Stent Synergy Pebax Everolimus Eluting [place] Chromium Plga L16 Mm L144 Cm Od2.5 Mm Radiopaque 1 Access Port Inflation Lumen Accepts .014 In Guidewire - [id number] Implanted:Qty: 1 on 01/04/2018 by Ofelia Ruiz MD at [facility] [place] [employer]bigniew 09/19/2018 [id number] / / [id number] System Coronary Stent Synergy Pebax Everolimus Eluting [place] Chromium Plga L20 Mm L144 Cm Od2.5 Mm Radiopaque 1 Access Port Inflation Lumen Accepts .014 In Guidewire - [id number] Implanted:Qty: 1 on 01/04/2018 by Ofelia Ruiz MD at [facility] [employer] Zbigniew 10/18/2018 [id number] / / [id number] Daig Zbigniew/[employer] [id number] Angio-Seal Vip Bon[place]k-Plus 6fr .035in 70cm Hemostatic Latex Free - [id number] Implanted:Qty: 1 on 02/22/2019 by Brock Carr MD at [facility] Right: Groin Daig Zbigniew/[employer] 10/06/2019 [id number] / / [id number] Procedures Procedure Name Priority Date/Time Associated Diagnosis Comments POCT LIPID PANEL Routine 08/08/2024 10:5 4 AM CDT Lipid screening EGFR Routine 07/29/2023 7:15 AM CDT HEMOGLOBIN A1C Routine 05/02/2023 8:[address] ABDOMEN PELVIS WO CONTRAST ED 02/14/2023 10:33 AM CDT ALBUMIN CREATININE RATIO, URINE Routine 11/06/2019 7:26 AM CONGREGATIONAL CARE PASTOR from Last 3 Months or Most Recently Relevant to Health Maintenance Results * POCT lipid panel (08/08/2024 10:54 AM CDT) Cholesterol, POC 154 mg/dL HDL, POC 29 mg/dL Triglycerides, POC 115 mg/dL LDL Cholesterol POC 102 mg/dL Chol/HDL Ratio, POC 3.6 Non-HDL Cholesterol, POC 125 mg/dL Cholesterol Total, POC 154 mg/dL Capillary blood 08/08/2024 1 0:54 AM CDT us Brock Carr MD POINT OF CARE TEST [...] Martha Hong MD LAB BLOOD ORDERABLES Stephanie susie Result [facility] [address] Department [place] [address] * (ABNORMAL) Hemoglobin A1c (05/02/2023 8:35 AM CDT) Hgb A1C 5.7(H) 4.0 - 5.6 % [facility] Comment:Testing performed by : [address] [address] Estimated Average Glucose 117 mg/dL [facility] Comment: The ADA recommends reporting an estimated Average Glucose (eAG) with all Hemoglobin A1c results using the equation derived from a study of 507 normal and diabetic adults. Minority populations were underrepresented and children were not included. (Diabetes Care 31:8858-9120, 2008). The eAG is not equivalent to a fasting glucose. Testing performed by: [address] [address] Blood 05/02/2023 8:35 AM CDT 05/02/2023 9:24 AM CDT us Bennie Oliveira MD LAB BLOOD ORDERABLES Final R esult [facility] [address] Department [place] [address] * CT Abdomen Pelvis WO Contrast (02/14/2023 [...] Harrison Islas M.D. KR T: Report ID: [id number] Reading Location: [id number] Procedure Note Harrison Islas MD - 02/14/2023 [...] Harrison Islas M.D. KR T: Report ID: [id number] Reading Location: [place] [address]ico Roy [address] IMG [address] PROCEDURES Final Res ult * (ABNORMAL) Albumin Creatinine Ratio, Urine (11/06/2019 7:26 AM CONGREGATIONAL CARE PASTOR) Creatinine, ur 57 20 - 320 mg/dL [facility] Microalbumin, ur 6.4 See Note: mg/dL [facility] Comment: Reference Range: Reference Range Not established Microalbumin/creat ratio 112(H) <30 mcg/mg creat [facility] Comment: The ADA defines abnormalities in albumin excretion as follows: Category Result (mcg/mg creatinine) Normal <30 Microalbuminuria 30-299 Clinical albuminuria > OR = 300 The ADA recommends that at least two of three specimens collected within a 3-6 month period be abnormal before considering a patient to be within a diagnostic category. 11/06/2019 7:2 6 AM CONGREGATIONAL CARE PASTOR 11/06/2019 7:29 AM CONGREGATIONAL CARE PASTOR Narrative Resulting Agency Comment Performing Organization Information: Site ID: [place] Name: [facility] Address: [address] [place] [address] Director: Kali Sheppard D.O., MPH us Anu [facility]ELDON LAB URINE ORDERABLES Fi nal Result JESUS MANUEL [facility] [place] from Last 3 Months or Most Recently Relevant to Health Maintenance Additional Health Concerns Infection Onset Date Last Indicated CRE 07/17/2023 07/17/2023 MDR gram neg/ESBL 07/17/2023 07/17/2023 Insurance [employer] [employer] [place] [employer] MEDICARE ADVANTAGE MEDICARE [facility] Advance Directives For more information, please contact: [phone] Documents on File Type Date Recorded Patient Customs Agent Expl anation ADVANCE DIRECTIVE 05/02/2023 11:29 AM [...] 8:26 AM 07/13/2023 4:49 AM Care Teams Hydraulic Lift Driver Relationship Specialty Start Date End Date Jaya Dailey MD PCP - General Family Medicine 01/18/19 Abelardo Gastelum MD [address] [facility] [place] [address] Orthopedic Surgery 05/09/23
--- OUTSIDE RECORDS SUMMARY | 2025-08-28 20:17 | XMS_ITS | Clinical Summary ---
Author Organization [facility] Address [address] [facility] [place] [address] Care Team Providers Care Wharfmaster Name Role Phone Lewis Chopra MD Primary Care Provider [phone] Source Comments [employer] [facility],non-owned Affiliates and Associated Physician Practices is amultiple site organization consisting of ambulatory clinics and hospital sitesin [place], [place], [place] and [place]. This disclosure is being madepursuant to the Care Everywhere program and may not contain all information available regarding this patient. Last updated 18.[employer] [facility] Allergies No known active allergies Medications * [...] Active vitamin D, ergocalciferol, (Drisdol) 1.25 MG (01123 UT) capsuleIndicatio ns:Vitamin D Deficiency Take 1 (one) capsule by mouth every Tuesday & Reasons: Vitamin D Deficiency 90 capsule 05/04/20 23 Active Active Problems Problem Noted Date Diagnosed Date High anion gap metabolic acidosis 03/06/2023 Acute blood loss anemia 03/02/2023 Duodenal ulcer 03/02/2023 Diabetes insipidus - VESSEL WELDER Deficiency 03/02/2023 Lung mass 03/02/2023 Sepsis due [...] and heating? Not hard at all 02/16/2023 [facility] [place] of Occupat ional Health - Occupational Stress [...] place to sleep or slept in a halfway (including now)? No 02/16/2023 Sex and Gender Information Value Date Recorded Sex Assigned at Not on file Legal Sex Male 7:47 PM INTERNATIONAL BANKER Gender Identity Not on file Sexual Orientation [...] 4:00 AM CDT Height 172.7 cm (5' 7.99) 02/24/2023 11:43 PM C DT Body Mass [...] CREATININE 05/01/20242022, 05/01/2023, 04/26/2023, Additional history exists DEPRESSION SCREENING 11/07/2024 DIABETES - URINE PROTEIN SCREENING 11/07/2024 02/16/2023 COVID-19 VACCINE ( season) 2025 11/13/2021, 02/09/2021, 01/19/2021 INFLUENZA VACCINE (#1) 2025 HEPATITIS C SCREENING Completed 02/18/2023 HEPATITIS [...] 7 - 26 mg/dL 03/10/2023 5:51 AM [facility] Creatinine 1.84(H) 0.71 - 1.16 mg/dL 03/10/2023 5:51 AM [facility] Sodium 139 136 - 145 mmol/L 03/10/2023 5:51 AM [facility] Potassium 4.5 3.5 - 4.5 mmol/L 03/10/2023 5:51 AM [facility] Chloride 108(H) 98 - 107 mmol/L 03/10/2023 5:51 AM [facility] CO2 26 22 - 29 mmol/L 03/10/2023 5:51 AM [facility] Glucose 103 70 - 115 mg/dL 03/10/2023 5:51 AM [facility] Albumin 3.0(L) 3.4 - 5.0 g/dL 03/10/2023 5:51 AM [facility] Calcium 8.6 8.4 - 10.2 mg/dL 03/10/2023 5:51 AM [facility] Phosphorus 3.2 2.8 - 5.1 mg/dL 03/10/2023 5:51 AM [facility] Anion Gap 10 8 - 18 03/10/2023 5:51 AM CDT [facility] BUN/Creatinine Ratio 19 7 - 23 03/10/2023 5:51 AM CDT [facility] Osmolality Calculated 296 270 - 300 mOsm/kg 03/10/2023 5:51 AM CDT [facility] eGFR by CKD-EPI 40(L) >=90 mL/min/1.7 3 m2 03/10/2023 5:51 AM CDT [facility] Blood BLOOD SPECIMEN / Unknown Line Draw / Unknown 03/10/2023 5:11 AM CDT 03/10/2023 5:24 AM CDT Mehul Coronado MD LAB - CHEMISTRY ORDERAB LES Final Result Performing Organization Address City/[facility]/ZIP Co de Phone Number [address] [address], [place] [phone] * HEPATITIS C AB SCREEN RFLX NAAT QUANT (02/18/2023 3:20 AM CDT) Pathologist [facility] Hepatitis C Antibody Non-react abby Non-reac tive 02/18/2023 7:22 AM CDT [facility] Comment:Hepatitis C Antibody screen indicates no [...] LAB - CHEMISTRY ORDERAB LES Final Result [address] [address], [place] [phone] * (ABNORMAL) PROTEIN CREATININE RATIO URINE RANDOM PNL (02/16/2023 7:38 AM CDT) Protein Urine 164 Not Established mg/dL 02/16/2023 8:03 AM CDT [facility] Creatinine Urine 30 Not Established mg/dL 02/16/2023 8:03 AM [facility] Protein/Creati nine Ratio Urine 5.47(H) <0.10 02/16/2023 8:03 AM T [facility] Urine URINE SPECIMEN OBTAINED BY CLEAN CATCH PROCEDURE / Unknown Collection / Unknown 02/16/2023 7:38 AM CDT 02/16/2023 7:41 AM CDT us Mehul Coronado MD LAB - URINE CHEMISTRY O RDERABLES Final Result Performing Organization Address City/[facility]/ZIP Co de Phone Number [facility] [address] [place] [address], [facility] [phone] * (ABNORMAL) HEMOGLOBIN A1C (02/16/2023 1:23 AM CDT) Hemoglobin A1c 9.6(H) <=5.6 % 02/16/2023 9:35 AM [facility] Estimated Average Glucose 229 mg/dL 02/16/2023 9:35 AM [facility] Comment: HbA1c Interpretation: Normal : < 5.7% Pre-diabetes: 5.7-6.4% Diabetes: Equal to or greater than 6.5% Test results diagnostic of diabetes should be repeated for confirmation. Treatment target values recommended by ADA and other clinical organizations should be used to evaluate metabolic control in patients. Reference: [place] Diabetes [employer], Standards of Care in Diabetes [...] LAB - CHEMISTRY ORDERAB LES Final Result [facility] [address] [place] [address], [facility] [phone] from Last 3 Months or Most Recently Relevant to Health Maintenance Additional Health Concerns Infection Onset Date Last Indicated MRSA 02/16/2023 02/23/2023 Insurance MEDICARE MEDICARE Advance Directives * Full Code (Latest Code Status on File) Date Activated Date Inactivated Comments 02/16/2023 12:51 AM 03/10/2023 11:28 PM Care Teams Wharfmaster Relationship Specialty Start Date End Date Lewis Chopra MD [address] [place] [id number] PCP - General 02/17/23
--- OUTSIDE RECORDS SUMMARY | 2025-10-21 14:00 | XMS_ITS | Clinical Summary ---
Author Organization [facility] Address [address] [place] [address] Care Team Providers Care Pharmacy Services Director Name Role Phone Lewis Chopra MD Primary Care Provider [phone] Source Comments [facility],non-owned Affiliates and Associated Physician Practices is amultiple site organization consisting of ambulatory clinics and hospital sitesin [place], [place], [place] and [place]. This disclosure is being madepursuant to the Care Everywhere program and may not contain all information available regarding this patient. Last updated 18.[facility] Allergies No known active allergies Medications * [...] Active vitamin D, ergocalciferol, (Drisdol) 1.25 MG (68882 UT) capsuleIndicatio ns:Vitamin D Deficiency Take 1 (one) capsule by mouth every Tuesday & Reasons: Vitamin D Deficiency 90 capsule 05/04/20 23 Active Active Problems Problem Noted Date Diagnosed Date High anion gap metabolic acidosis 03/06/2023 Acute blood loss anemia 03/02/2023 Duodenal ulcer 03/02/2023 Diabetes insipidus - SHOE REPAIRER Deficiency 03/02/2023 Lung mass 03/02/2023 Sepsis due [...] and heating? 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 Gender Identity Not on file Sexual [...] 50+ (1 of 2 - PCV) 1976 Respiratory Syncytial Virus (RSV) Vaccine Pt: or over 60 yrs (1 - Risk 50-74 years 1-dose series) 2007 ZOSTER VACCINE (1 of 2) 2007 AAA SCREENING 2022 DIABETES RETINOPATHY SCREENING 02/16/2023 [...] 7 - 26 mg/dL 03/10/2023 5:51 AM [facility] Creatinine 1.84(H) 0.71 - 1.16 mg/dL 03/10/2023 5:51 AM [facility] Sodium 139 136 - 145 mmol/L 03/10/2023 5:51 AM [facility] Potassium 4.5 3.5 - 4.5 mmol/L 03/10/2023 5:51 AM [facility] Chloride 108(H) 98 - 107 mmol/L 03/10/2023 5:51 AM [facility] CO2 26 22 - 29 mmol/L 03/10/2023 5:51 AM [facility] Glucose 103 70 - 115 mg/dL 03/10/2023 5:51 AM [facility] Albumin 3.0(L) 3.4 - 5.0 g/dL 03/10/2023 5:51 AM [facility] Calcium 8.6 8.4 - 10.2 mg/dL 03/10/2023 5:51 AM [facility] Phosphorus 3.2 2.8 - 5.1 mg/dL 03/10/2023 5:51 AM [facility] Anion Gap 10 8 - 18 03/10/2023 5:51 AM [facility] BUN/Creatinine Ratio 19 7 - 23 03/10/2023 5:51 AM CDT [facility] Osmolality Calculated 296 270 - 300 mOsm/kg 03/10/2023 5:51 AM CDT [facility] eGFR by CKD-EPI 40(L) >=90 mL/min/1.7 3 m2 03/10/2023 5:51 AM CDT [facility] Blood BLOOD SPECIMEN / Unknown Line Draw / Unknown 03/10/2023 5:11 AM CDT 03/10/2023 5:24 AM CDT Mehul Coronado MD LAB - CHEMISTRY ORDERAB LES Final Result Performing Organization Address City/[facility]/ZIP Co de Phone Number [address] [address], [place] [phone] * HEPATITIS C AB SCREEN RFLX NAAT QUANT (02/18/2023 3:20 AM CDT) Pathologist [facility] [place] Hepatitis C Antibody Non-react abby Non-reac tive 02/18/2023 7:22 AM T [facility] Comment:Hepatitis C Antibody screen indicates no [...] LAB - CHEMISTRY ORDERAB LES Final Result [address] [address], [place] [phone] * (ABNORMAL) PROTEIN CREATININE RATIO URINE RANDOM PNL (02/16/2023 7:38 AM CDT) Protein Urine 164 Not Established mg/dL 02/16/2023 8:03 AM CDT [facility] Creatinine Urine 30 Not Established mg/dL 02/16/2023 8:03 AM CDT [facility] Protein/Creati nine Ratio Urine 5.47(H) <0.10 02/16/2023 8:03 AM [facility] Urine URINE SPECIMEN OBTAINED BY CLEAN CATCH PROCEDURE / Unknown Collection / Unknown 02/16/2023 7:38 AM CDT 02/16/2023 7:41 AM CDT Mehul Coronado MD LAB - URINE CHEMISTRY O RDERABLES Final Result [address] [address], [place] [phone] * (ABNORMAL) HEMOGLOBIN A1C (02/16/2023 1:23 AM CDT) Hemoglobin A1c 9.6(H) <=5.6 % 02/16/2023 9:35 AM [facility] Estimated Average Glucose 229 mg/dL 02/16/2023 9:35 AM [facility] Comment: HbA1c Interpretation: Normal : < 5.7% Pre-diabetes: 5.7-6.4% Diabetes: Equal to or greater than 6.5% Test results diagnostic of diabetes should be repeated for confirmation. Treatment target values recommended by ADA and other clinical organizations should be used to evaluate metabolic control in patients. Reference: [place] Diabetes Association, Standards of Care in Diabetes [...] LES Final Result Performing Organization Address [facility]/ZIP Co de Phone Number [address] [address], [place] [phone] from Last 3 Months or Most Recently Relevant to Health Maintenance Additional Health Concerns Infection Onset Date Last Indicated MRSA 02/16/2023 02/23/2023 Insurance MEDICARE MEDICARE Advance Directives * Full Code (Latest Code Status on File) Date Activated Date Inactivated Comments 02/16/2023 12:51 AM 03/10/2023 11:28 PM Care Teams Pharmacy Services Director Relationship Specialty Start Date End Date Lewis Chopra MD [address] [place] [address] PCP - General 02/17/23
--- OUTSIDE RECORDS SUMMARY | 2025-10-21 14:00 | XMS_ITS | Clinical Summary ---
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 Pulse 72 10/23/2020 11:23 AM GAS WELDING MACHINE OPERATOR Temperature 36.7 C (98 F) 10/23/2020 11:23 AM GAS WELDING MACHINE OPERATOR Respiratory Rate - - Oxygen Saturation - - Inhaled Oxygen Concentration - - Weight 181 kg (400 lb) 10/23/2020 11:23 AM GAS WELDING MACHINE OPERATOR Height 175.3 cm (5' 9) 10/23/2020 11:23 AM GAS WELDING MACHINE OPERATOR Body Mass Index 59.07 10/23/2020 11:23 AM GAS WELDING MACHINE OPERATOR Plan of Treatment Health Maintenance Due Date Last Done Comments Pneumococcal PPSV23/PCV13 65 + Years / Low and Medium Risk (1 of 2 - PCV) 2007 Influenza Vaccine (#1) 2025 Insurance AET[employer] Care Teams Wildlife Protector Relationship Specialty Start Date End Date Jaya Dailey MD [address] [place] [address] PCP - General Family Medicine 10/21/20
--- OUTSIDE RECORDS SUMMARY | 2025-10-21 14:00 | XMS_ITS | Encounter Summary ---
Author Organization [facility] Address [address] [place] [address] Care Team Providers Care Rn Wound Care Name Role Phone Lewis Chopra MD Primary Care Provider [phone] Encounter Details Date Type Department Care Team (Late st Contact Info) Description 03/16/2023 Telephone [facility] - Infectious Disease [address] [facility], [facility] [place] [address] Harrison Titus MD [facility] [facility] [place] [address] Social History Tobacco Use Types [...] and heating? Not hard at all 02/16/2023 [facility] [place] of Occupat ional Health - Occupational Stress [...] on file Legal Sex Male 7:[address]IA[address] Gender Identity Not on file Sexual [...] Titus Reason for call: [facility] ANTIBIOTIC THERAPY appt rescheduled to 04/12/2023 because he will have NO transportation. Schedule conflict. The Rehab center is [facility], , contact is Amaya over scheduling and transportation. Give her a call to reschedule and with any questions. Thanks. Patient Call Back number: [phone] documented in this encounter Plan of Treatment Not on file documented as of this encounter Visit Diagnoses Not on filedocumented in this encounter Additional Health Concerns Infection Onset Date Last Indicated Resolved Time MRSA 02/16/2023 02/23/2023 documented as of this encounter Care Teams Rn Wound Care Relationship Specialty Start Date End Date Lewis Chopra MD [address] [place] [id number] PCP - General 02/17/23 documented as of this encounter
--- OUTSIDE RECORDS SUMMARY | 2025-10-21 14:00 | XMS_ITS | Clinical Summary ---
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
--- OUTSIDE RECORDS SUMMARY | 2025-10-21 14:00 | XMS_ITS | Encounter Summary ---
Author Organization [facility] Address [address] [place] [address] Care Team Providers Care Field Examiner Name Role Phone Jaya Dailey MD Primary Care Provider [phone] Abelardo Gastelum MD Unavailable [phone] Encounter Details Date Type Department Care Team (Late st Contact Info) Description 07/14/2023 Telephone [facility] Radiology [address] [place] [address] Rachael Rao RN Social History Tobacco Use [...] often do you attend chur ch or taoist services? Never 07/18/2023 Do you belong to any clubs o r organizations such as yazidism groups, unions, fraternal or athletic groups, or [...] on file Legal Sex Male 3:19 AM HOSPITALITY JOB TITLES Gender Identity Not on file Sexual Orientation [...] 07/17/2023 3:00 PM Lisy Balderrama, LUIS ANGEL RESTAURANT KITCHEN AND SERVICE MANAGER Evaluation Needed 2 07/17/2023 3:00 PM Lisy [...] * Question Answer Entry Date Author Neuro ([facility]) X 07/17/2023 7:45 PM CDT George Cook, LUIS ANGEL documented in this encounter Plan of Treatment Not on file documented as of this encounter Visit Diagnoses Not on filedocumented in this encounter Additional Health Concerns Infection Onset Date Last Indicated Resolved Time MRSA 02/14/2023 07/17/2023 01/13/2024 3:05 AM HOSPITALITY JOB TITLES CRE 07/17/2023 07/17/2023 MDR gram neg/ESBL 07/17/2023 07/17/2023 documented as of this encounter Care Teams Field Examiner Relationship Specialty Start Date End Date Jaya Dailey MD PCP - General Family Medicine 01/18/19 Abelardo Gastelum MD [address] [place] [address] [place] [address] Orthopedic Surgery 05/09/23 documented as of this encounter
--- OUTSIDE RECORDS SUMMARY | 2025-10-21 14:00 | XMS_ITS | Clinical Summary ---
Author Organization [facility] D Address [address] [place] [id number] Care Team Providers Care Cut Off Saw Operator Name Role Phone Jaya Dailey MD Primary Care Provider + [phone] Abelardo Gastelum MD Unavailable Allergies No known [...] 1 tablet (25 mcg total) by mouth fastener technologist before breakfast Given at 6 am 30 [...] mouth daily 30 tablet 11 4 Active metoprolol XL (TOPROL-XL) 25 mg extended release tablet Take 1 tablet (25 mg total) by mouth every morning 5 Active rosuvastatin (CRESTOR) 20 mg tablet Take 1 tablet (20 mg total) by mouth every morning 5 Active sacubitriL-vals saqib (ENTRESTO) 24-26 mg tablet TAKE 1/2 TABLET BY MOUTH EVERY 12 HOURS 5 Active white petrolatum-mine ral oiL (EUCERIN) creamIndication s:skin irritation Apply topically Act abby Active Problems Patient Care Coordination No te Formatting of this note migh t be different from the original. Rupal Duffy NP 05/06/2023 09:08 AM This is a 67-year-old male patient presenting to the clinic today for postoperative follow-up after undergoing a VATS decortication of a localized pleural effusion on 04/20/[address] aMuro. He has a past medical history significant [...] 09/23/2023 Assessment & Plan (09/23/2023 4:10 PM TRACTOR DISTRIBUTOR): By hx suspect more gas/bloating Consider constipation [...] 08/01 Assessment & Plan (09/23/2023 4:09 PM TRACTOR DISTRIBUTOR): Wound care following Still wrapped No active [...] 08/01/2023 Assessment & Plan (09/23/2023 4:09 PM TRACTOR DISTRIBUTOR): Multifactorial Also obstructive Cont murillo Assessment & Plan (08/11/2023 8:25 PM CDT): Has catheter Staff to arrange urology fu for xchg Assessment & Plan (08/05/2023 4:24 PM CDT): Has murillo in place, hx of SAMANTA, unlikely to improve Assessment & Plan (08/01/2023 7:45 PM CDT): Cont spc Rt samanta Has 08/08 uro appt [facility]23 Chronic atrial fibrillation 07/28/2023 Assessment [...] to obtain cardiac clearance but patients primary caddie will not give d/t not seeing in [...] 04/28/2023 Assessment & Plan (11/16/2023 4:16 PM TRACTOR DISTRIBUTOR): Multifactorial related to chronic illness and cauda [...] 03/25/2023 Assessment & Plan (11/16/2023 4:16 PM TRACTOR DISTRIBUTOR): Currently rate controlled. Continue metoprolol. Discussed with [...] 02/16/2023 Assessment & Plan (11/16/2023 4:16 PM TRACTOR DISTRIBUTOR): Currently compensated. Continue metolazone metoprolol. Assessment & [...] (07/04/2023 2:40 PM CDT): Was able to application integration specialist parallal bars with tx. Slow but consistent progress. Continue to [facility]. Assessment & Plan (06/27/2023 11:00 AM CDT): [...] (01/30/2019): Added automatically from request for surgery [id number] Diabetic polyneuropathy asso ciated with type 2 [...] lopressor Assessment & Plan (01/05/2018 11:41 AM TRACTOR DISTRIBUTOR): Controlled. Continue with metoprolol. Monitor blood pressure [...] lispro Assessment & Plan (01/05/2018 11:42 AM TRACTOR DISTRIBUTOR): Insulin pump being held for now. SSI [...] CDT): Brought this to the attention of wound care technician Halina who will ask for an [...] 03/25/2023 Assessment & Plan (01/05/2018 11:39 AM TRACTOR DISTRIBUTOR): Troponin peaked at 35.95. EKG as noted above. Cardiology has been consulted and pt is now s/p cardiac catheterization with possible plans to re-enter for further intervention. ASA, Brillinta, Bb, Sony, and Statin ordered. Continue with telemetry. Smoking addiction 01/05/2018 03/25/2023 Assessment & Plan (01/05/2018 11:42 AM TRACTOR DISTRIBUTOR): Counseled on cessation. Morbid obesity 01/05/2018 03/25/2023 Assessment & Plan (01/05/2018 11:44 AM TRACTOR DISTRIBUTOR): Pt reports a weight loss of 30+ pounds but has recently began to gain the weight back. Encouraged to begin a weight loss regimen. 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 04/28/2023 Encounters Date Type Department Care Team Description 09/18/2025 Orders Only [facility] Cardiology [address] [place] [address] Barbi Mcfarland NP 09/04/2025 Orders Only [facility] Cardiology [address] [place] [address] Hong Vivas MD 09/03/2025 Telephone [facility] Cardiology [address] [address] [place] [address] Sonal Sarabia NP from Last 3 Months Immunizations Immunization Administration Dates Next Due Tdap 01/29/2024 Surgical History Surgery Date Site/Laterality Comments KNEE ARTHROSCOPY Left MOLE REMOVAL SKIN GRAFT cover ankle US GUIDED THORACENTESIS 03/28/2023 N/A CT CHEST TUBE INSERTION LEFT 04/09/2023 N/A 02/2023 see [facility] notes OTHER SURGICAL HISTORY 04/20/2023 Right VIDEO-ASSISTED [...] left heel see pics in [facility] from end of april 2023 Polyneuropathy Encounter for wound care 05/23/23 patient has puncture wound right lateral chest and DTI left heel per Raquel nurse at [facility] they are treating . Pneumonia [...] often do you attend chur ch or muslim services? Never 07/28/2023 Do you belong to any clubs o r organizations such as mormonism groups, unions, fraternal or athletic groups, or [...] on file Legal Sex Male 3:19 AM TRACTOR DISTRIBUTOR Gender Identity Not on file Sexual Orientation [...] Fall Risk Assessment 08/12/2024 08/12/2023 Covid-19 Vaccine ( - 2024-2 6 season) 2025 11/13/2021, 02/09/2021, 01/19/2021 Influenza Vaccine (#1) 2025 Lipid Panel 08/08/2025 08/08/2024, 03/08, 06/22/2021, Additional history exists DTaP/Tdap/Td Vaccine (2 - Td or Tdap) 01/28/2034 01/29/2024 Abdominal Aortic Aneurysm (A AA) Screen Completed 02/14/2023 Medical Devices Implanted Type Area Honeycomb Decapper Device Identifier Shelf Expiration Date Model / Serial / Lot [employer] Zbigniew [id number] Synergy 2.5mm 24mm 144cm Radiopaque 1 Access Port Inflation Lumen - [id number] Implanted:Qty: 1 on 02/22/2019 by Brock Carr MD at [facility] Stent N/A: Heart [employer] Zbigniew 11/13/2020 [id number] / / [id number] [employer] Zbigniew [id number] Synergy 3mm 20mm 144cm Radiopaque 1 Access Port Inflation Lumen - [id number] Implanted:Qty: 1 on 02/22/2019 by Brock Carr MD at [facility] Stent N/A: Heart [employer] Zbigniew 11/08/2020 [id number] / / [id number] Insulin Pump Abdomen System Coronary Stent Synergy Pebax Everolimus Eluting Holden Chromium Plga L16 Mm L144 Cm Od2.5 Mm Radiopaque 1 Access Port Inflation Lumen Accepts .014 In Guidewire - [id number] Implanted:Qty: 1 on 01/04/2018 by Ofelia Ruiz MD at [facility] Polymer Vision Zbigniew 09/19/2018 [id number] / / [id number] System Coronary Stent Synergy Pebax Everolimus Eluting Holden Chromium Plga L20 Mm L144 Cm Od2.5 Mm Radiopaque 1 Access Port Inflation Lumen Accepts .014 In Guidewire - [id number] Implanted:Qty: 1 on 01/04/2018 by Ofelia Ruiz MD at [facility] [employer]. 10/18/2018 [id number] / / [id number] Daig Zbigniew/[employer] [id number] Angio-Seal Vip Bondek-Plus 6fr .035in 70cm Hemostatic Latex Free - [id number] Implanted:Qty: 1 on 02/22/2019 by rBock Carr MD at [facility] Right: Groin Daig Zbigniew[employer] 10/06/2019 [id number] / / [id number] Procedures Procedure Name Priority Date/Time Associated Diagnosis Comments CARDIOLOGY DOCUMENT SCAN Routine 09/02/2025 8:50 AM CDT CARDIOLOGY DOCUMENT SCAN Routine 09/01/2025 8:58 AM CDT POCT LIPID PANEL Routine 08/08/2024 10:5 4 AM CDT Lipid screening EGFR Routine 07/29/2023 7:15 AM CDT HEMOGLOBIN A1C Routine 05/02/2023 8:[address] ABDOMEN PELVIS WO CONTRAST ED 02/14/2023 10:33 AM CDT ALBUMIN CREATININE RATIO, URINE Routine 11/06/2019 7:26 AM TRACTOR DISTRIBUTOR from Last 3 Months or Most Recently Relevant to Health Maintenance Results * Cardiology Document Scan (09/02/2025 8:50 AM CDT) Anatomical Region Laterality Modality Other us Barbi Mcfarland NP CV CARDIAC SERVICES PROCEDUR ES Final Result * Cardiology Document Scan (09/01/2025 8:58 AM [...] MD LAB BLOOD ORDERABLES Stephanie l Result [facility] PERLA [address] [facility] Department [place] [address] * (ABNORMAL) Hemoglobin A1c (05/02/2023 8:35 AM CDT) Hgb A1C 5.7(H) 4.0 - 5.6 % RA[facility] PERLA Comment:Testing performed by : [address] [address] Estimated Average Glucose 117 mg/dL RAHUL Comment: The ADA recommends reporting an estimated Average Glucose (eAG) with all Hemoglobin A1c results using the equation derived from a study of 507 normal and diabetic adults. Minority populations were underrepresented and children were not included. (Diabetes Care 31:4581-1976, 2008). The eAG is not equivalent to a fasting glucose. Testing performed by: [address] [address] Blood 05/02/2023 8:35 AM CDT 05/02/2023 9:24 AM CDT us Bennie Oliveira MD LAB BLOOD ORDERABLES Final R esult RAHUL [address] Department [place] [address] * CT Abdomen Pelvis WO Contrast (02/14/2023 [...] signed by Harrison FARFAN T: Report ID: [id number] Reading Location: [id number] Procedure Note Harrison Islas MD - 02/14/2023 [...] Harrison Islas M.D. KR T: Report ID: [id number] Reading Location: [place] [address] [address]ico Roy [address] IMG [address] PROCEDURES Final Res ult * (ABNORMAL) Albumin Creatinine Ratio, Urine (11/06/2019 7:26 AM TRACTOR DISTRIBUTOR) Creatinine, ur 57 20 - 320 mg/dL [facility] [place] Microalbumin, ur 6.4 See Note: mg/dL [facility] [place] Comment: Reference Range: Reference Range Not established Microalbumin/creat ratio 112(H) <30 mcg/mg creat [facility] [place] Comment: The ADA defines abnormalities in albumin excretion as follows: Category Result (mcg/mg creatinine) Normal <30 Microalbuminuria 30-299 Clinical albuminuria > OR = 300 The ADA recommends that at least two of three specimens collected within a 3-6 month period be abnormal before considering a patient to be within a diagnostic category. 11/06/2019 7:26 AM TRACTOR DISTRIBUTOR 11/06/2019 7:29 AM TRACTOR DISTRIBUTOR Narrative Resulting Agency Comment Performing Organization Information: Site ID: [facility] Name: [facility] Address: [address] [place] [address] Director: Kali Sheppard D.O., MPH Anu [facility] LAB URINE ORDERABLES Fi nal Result JESUS MANUEL [facility] [place] from Last 3 Months or Most Recently Relevant to Health Maintenance Additional Health Concerns Infection Onset Date Last Indicated CRE 07/17/2023 07/17/2023 MDR gram neg/ESBL 07/17/2023 07/17/2023 Insurance [facility] [address] [facility] MEDICARE ADVANTAGE MEDICARE [facility] ANA Advance Directives For more information, please contact: [phone] Documents on File Type Date Recorded Patient Molding And Trim Installer Expl anation ADVANCE DIRECTIVE 05/02/2023 11:29 AM [...] 8:26 AM 07/13/2023 4:49 AM Care Teams Cut Off Saw Operator Relationship Specialty Start Date End Date Jaya Dailey MD PCP - General Family Medicine 01/18/19 Abelardo Gastelum MD [address] [place] [address] DE[place] [address] Orthopedic Surgery 05/09/23
--- OUTSIDE RECORDS SUMMARY | 2025-10-21 14:00 | XMS_ITS | Encounter Summary ---
Author Organization [facility] Healthcare Address [address] [place] [address] Care Team Providers Care Sales And Service Advisor Name Role Phone Jaya Dailey MD Primary Care Provider + [phone] Abelardo Gastelum MD Unavailable [phone] Encounter Details Date Type Department Care Team (Late st Contact Info) Description 08/09/2023 Telephone [facility] Radiology [address] [place] [address] Shreee Vasquez, RN Social History Tobacco Use Types [...] often do you attend chur ch or scientologist services? Never 07/28/2023 Do you belong to [...] in a nursing home (including now)? No 07/28/2023 Personal Safety Answer Date Recorded Have you ever been in or are you currently in a harmful physical or emotional relationship or is someone making you feel afraid or unsafe? Denies 08/12/2023 Sex and Gender Information Value Date Recorded Sex Assigned at Not on file Legal Sex Male 3:19 AM GROUP CAPTAIN Gender Identity Not on file Sexual Orientation [...] Time MRSA 02/14/2023 07/17/2023 01/13/2024 3:05 AM GROUP CAPTAIN CRE 07/17/2023 07/17/2023 MDR gram neg/ESBL 07/17/2023 07/17/2023 documented as of this encounter Care Teams Sales And Service Advisor Relationship Specialty Start Date End Date Jaya Dailey MD PCP - General Family Medicine 01/18/19 Abelardo Gastelum MD [address] [facility] DE[place] [address] Orthopedic Surgery 05/09/23 documented as of this encounter
--- OUTSIDE RECORDS SUMMARY | 2025-10-21 14:00 | XMS_ITS | Clinical Summary ---
Author Organization [facility] Lisy Diaz Address [address] [place] [address] Care Team Providers Care Account Executive Sales Representative Name Role Phone Jaya Dailey MD Primary Care Provider [phone] Allergies No known active allergies Medications aspirin [...] on file Legal Sex Male 3:40 PM ASSOCIATE PROFESSOR OF PHYSICS Gender Identity Not on file Sexual Orientation Not on file Last Filed Vital Signs Vital Sign Reading Time Taken Comments Blood Pressure 133/49 01/03/2023 2:03 PM ASSOCIATE PROFESSOR OF PHYSICS Pulse 73 01/03/2023 2:34 PM ASSOCIATE PROFESSOR OF PHYSICS Temperature 36.4 C (97.6 F) 01/03/2023 2:03 PM ASSOCIATE PROFESSOR OF PHYSICS Respiratory Rate 10 01/03/2023 2:03 PM ASSOCIATE PROFESSOR OF PHYSICS Oxygen Saturation 98% 01/03/2023 2:03 PM ASSOCIATE PROFESSOR OF PHYSICS Inhaled Oxygen Concentration - - Weight 181.4 kg (400 lb) 01/03/2023 2:03 PM ASSOCIATE PROFESSOR OF PHYSICS Height 176.8 cm (5' 9.6) 01/03/2023 2:03 PM ASSOCIATE PROFESSOR OF PHYSICS Body Mass Index 58.06 01/03/2023 2:03 PM ASSOCIATE PROFESSOR OF PHYSICS Plan of Treatment Health Maintenance Due Date [...] Insurance MEDICARE PART A AND B [facility] MEDICARE PART A AND B Care Teams Account Executive Sales Representative Relationship Specialty Start Date End Date Jaya Dailey MD [address] [place] [address] PCP - General Family Practice 01/03/23
--- OUTSIDE RECORDS SUMMARY | 2025-10-21 14:00 | XMS_ITS | Clinical Summary ---
Author Organization [facility] Address [address] [place] [address] Care Team Providers Care Oven Technician Name Role Phone Jaya Dailey MD Primary Care Provider [phone] Social History Tobacco Use Types Packs/Day Years Used Date Smoking Tobacco: Never Assessed Sex and Gender Information Value Date Recorded Sex Assigned at Not on file Legal Sex Male 7:32 PM CDT Gender Identity Not on file Sexual Orientation Not on file Plan of Treatment Upcoming Encounters Date Type Department Care Team (Late st Contact Info) Description 10/30/2025 10:40 AM ENTERTAINMENT MUSICIAN Office Visit [facility] Multispecialty Care - [address], [address] [place] [address] Garett Rubin MD [address] [place] [id number] Health Maintenance Due Date Last Done Comments Colorectal Cancer Screening Colonoscopy (10 Years) 1957 Hepatitis C 1975 DTaP, Tdap and Td Vaccines ( 1 - Tdap) 1976 Pneumococcal Vaccine: 50+ Ye ars (1 of 1 - PCV) 2007 Zoster Vaccines (1 of 2) 2007 Annual Medicare Wellness Visit 2022 PHQ-2 (Physician [place]) 11/07/2024 COVID-19 Vaccine ( - 2024-2 6 season) 2025 Influenza Adult [...] patient's age to complete this topic Insurance MEDICARE Care Teams Oven Technician Relationship Specialty Start Date End Date Jaya Dailey MD [address] [address] PCP - General FAMILY PRACTICE 06/18/25
== END 2025-08-28 16:35 | disposition home or self-care (01) ==
PROVIDERS: PCP Family Medicine
DX: I50.9 Heart failure, unspecified (principal); J18.9 Pneumonia, unspecified organism; N18.32 Chronic kidney disease, stage 3b; Z16.35 Resistance to multiple antimicrobial drugs
CPT/HCPCS: 36415; 71046; 80048

== ENCOUNTER 2025-08-30 18:25 | Inpatient (IN) | payer MEDICARE, SELFPAY ==
[2025-08-30] VITALS (7 sets, daily range): BP systolic 115–135; BP diastolic 72–101; PULSE 99–122; RESP 14–20; TEMP 36.2–36.9; O2SAT 98–100; BMI 48.9
--- NOTE | ~2025-08-30 | XR_ITS ---
XR chest 1V portable INDICATION:Peripheral edema . REFERENCE: None FINDINGS: A single AP of the chest demonstrates enlarged heart. Bilateral infiltrate and opacities are noted. There is no evidence of pneumothorax or pleural effusion. IMPRESSION: Cardiomegaly with pulmonary edema suggestive of congestive heart failure. Reviewed, dictated and finalized at location S.
--- NOTE | ~2025-08-30 | US_ITS ---
EXAMINATION: US scrotum doppler DATE: 08/31/2025 10:06 INDICATION: Testicular swelling. TECHNIQUE: Grayscale and Doppler ultrasound images of the testes were obtained. COMPARISON: None. FINDINGS: The right testis measures 3.4 x 2.2 x 2.5 cm. The left testis measures 3.6 x 3.1 x 3.6 cm. There is normal vascular flow to both testes. The right epididymis is normal. The left epididymis is normal. There are small bilateral hydroceles. There is scrotal skin thickening. IMPRESSION: 1. Small bilateral hydroceles. 2. Scrotal skin thickening. Reviewed, dictated and finalized at location E.
--- OUTSIDE RECORDS SUMMARY | 2025-08-30 18:28 | XMS_ITS | Encounter Summary ---
Author Organization [facility] Healthcare Address [address] [place] [address] Care Team Providers Care Hyperbaric Nurse Name Role Phone Jaya Dailey MD Primary Care Provider + [phone] Abelardo Gastelum MD Unavailable [phone] Encounter Details Date Type Department Care Team (Late st Contact Info) Description 07/14/2023 Telephone [facility] Radiology [address] [place] [address] Rachael Rao RN Social History Tobacco Use [...] often do you attend chur ch or yazidism services? Never 07/18/2023 Do you belong to any clubs o r organizations such as tenriism groups, unions, fraternal or athletic groups, or [...] slept in a penitentiary (including now)? No 07/18/2023 Sex and Gender Information Value Date Recorded Sex Assigned at Not on file Legal Sex Male 3:19 AM VIOLIN TEACHER Gender Identity Not on file Sexual Orientation Not on file documented as of this encounter Plan of Treatment Not on file documented as of this encounter Visit Diagnoses Not on filedocumented in this encounter Additional Health Concerns Infection Onset Date Last Indicated Resolved Time MRSA 02/14/2023 07/17/2023 01/13/2024 3:05 AM VIOLIN TEACHER CRE 07/17/2023 07/17/2023 MDR gram neg/ESBL 07/17/2023 07/17/2023 documented as of this encounter Care Teams Hyperbaric Nurse Relationship Specialty Start Date End Date Jaya Dailey MD PCP - General Family Medicine 01/18/19 Abelardo Gastelum MD [address] [facility] DEPT [place] [address] Orthopedic Surgery 05/09/23 documented as of this encounter
--- OUTSIDE RECORDS SUMMARY | 2025-08-30 18:28 | XMS_ITS | Clinical Summary ---
Author Organization [facility] Care Team Providers Care Glove Cleaner Name Role Phone Unavailable Primary Care Provider Unavailabl e Social History Tobacco Use Types Packs/Day Years Used Date Smoking Tobacco: Never Assessed Sex and Gender Information Value Date Recorded Sex Assigned at Not on file Legal Sex Male 3:22 PM SUPERVISOR ADULT EDUCATION Gender Identity Not on file Sexual Orientation [...]
--- OUTSIDE RECORDS SUMMARY | 2025-08-30 18:28 | XMS_ITS | Clinical Summary ---
Author Organization [facility] Address [address] [place] [address] Care Team Providers Care Milking System Installer Name Role Phone Lewis Chopra MD Primary Care Provider [phone] Source Comments [facility],non-owned Affiliates and Associated Physician Practices is amultiple site organization consisting of ambulatory clinics and hospital sitesin [place], [place], [place] and [place]. This disclosure is being madepursuant to the Care Everywhere program and may not contain all information available regarding this patient. Last updated 18.[facility] Allergies No known active allergies Medications * [...] Active vitamin D, ergocalciferol, (Drisdol) 1.25 MG (61949 UT) capsuleIndicatio ns:Vitamin D Deficiency Take 1 (one) capsule by mouth every Tuesday & Reasons: Vitamin D Deficiency 90 capsule 05/04/20 23 Active Active Problems Problem Noted Date Diagnosed Date High anion gap metabolic acidosis 03/06/2023 Acute blood loss anemia 03/02/2023 Duodenal ulcer 03/02/2023 Diabetes insipidus - BANK CONSULTANT Deficiency 03/02/2023 Lung mass 03/02/2023 Sepsis due [...] and heating? Not hard at all 02/16/2023 [facility] of Occupat ional Health - Occupational Stress [...] in a care home (including now)? No 02/16/2023 Sex and Gender Information Value Date Recorded Sex Assigned at Not on file Legal Sex Male 7:47 PM FOREST MANAGEMENT TEACHER Gender Identity Not on file [...] 26 mg/dL 03/10/2023 5:51 AM [facility] Creatinine 1.84(H) 0.71 - 1.16 mg/dL 03/10/2023 5:51 AM [facility] Sodium 139 136 - 145 mmol/L 03/10/2023 5:51 AM [facility] Potassium 4.5 3.5 - 4.5 mmol/L 03/10/2023 5:51 AM [facility] Chloride 108(H) 98 - 107 mmol/L 03/10/2023 5:51 AM [facility] CO2 26 22 - 29 mmol/L 03/10/2023 5:51 AM [facility] Glucose 103 70 - 115 mg/dL 03/10/2023 5:51 AM [facility] Albumin 3.0(L) 3.4 - 5.0 g/dL 03/10/2023 5:51 AM [facility] Calcium 8.6 8.4 - 10.2 mg/dL 03/10/2023 5:51 AM [facility] Phosphorus 3.2 2.8 - 5.1 mg/dL 03/10/2023 5:51 AM [facility] Anion Gap 10 8 - 18 03/10/2023 5:51 AM CDT [facility] BUN/Creatinine Ratio 19 7 - 23 03/10/2023 5:51 AM CDT [facility] Osmolality Calculated 296 270 - 300 mOsm/kg 03/10/2023 5:51 AM CDT [facility] eGFR by CKD-EPI 40(L) >=90 mL/min/1.7 3 m2 03/10/2023 5:51 AM CDT [facility] Blood BLOOD SPECIMEN / Unknown Line Draw / Unknown 03/10/2023 5:11 AM CDT 03/10/2023 5:24 AM CDT Mehul Coronado MD LAB - CHEMISTRY ORDERAB LES Final Result Performing Organization Address City/[facility]/ZIP Co de Phone Number [address] [address], [place] [phone] * HEPATITIS C AB SCREEN RFLX NAAT QUANT (02/18/2023 3:20 AM CDT) Pathologist [facility] Hepatitis C Antibody Non-react abby Non-reac tive 02/18/2023 7:22 AM CDT [facility] Comment:Hepatitis C Antibody screen indicates no [...] LAB - CHEMISTRY ORDERAB LES Final Result [address] [address], [place] [phone] * (ABNORMAL) PROTEIN CREATININE RATIO URINE RANDOM PNL (02/16/2023 7:38 AM CDT) Protein Urine 164 Not Established mg/dL 02/16/2023 8:03 AM CDT [facility] Creatinine Urine 30 Not Established mg/dL 02/16/2023 8:03 AM [facility] Protein/Creati nine Ratio Urine 5.47(H) <0.10 02/16/2023 8:03 AM T [facility] Urine URINE SPECIMEN OBTAINED BY CLEAN CATCH PROCEDURE / Unknown Collection / Unknown 02/16/2023 7:38 AM CDT 02/16/2023 7:41 AM CDT us Mehul Coronado MD LAB - URINE CHEMISTRY O RDERABLES Final Result Performing Organization Address City/[facility]/ZIP Co de Phone Number [facility] [address] [place] [address], [facility] [phone] * (ABNORMAL) HEMOGLOBIN A1C (02/16/2023 1:23 AM CDT) Hemoglobin A1c 9.6(H) <=5.6 % 02/16/2023 9:35 AM [facility] Estimated Average Glucose 229 mg/dL 02/16/2023 9:35 AM [facility] Comment: HbA1c Interpretation: Normal : < 5.7% Pre-diabetes: 5.7-6.4% Diabetes: Equal to or greater than 6.5% Test results diagnostic of diabetes should be repeated for confirmation. Treatment target values recommended by ADA and other clinical organizations should be used to evaluate metabolic control in patients. Reference: [place] [employer], Standards of Care in Diabetes [...] LAB - CHEMISTRY ORDERAB LES Final Result [facility] [address] [place] [address], [facility] [phone] from Last 3 Months or Most Recently Relevant to Health Maintenance Additional Health Concerns Infection Onset Date Last Indicated MRSA 02/16/2023 02/23/2023 Insurance MEDICARE MEDICARE Advance Directives * Full Code (Latest Code Status on File) Date Activated Date Inactivated Comments 02/16/2023 12:51 AM 03/10/2023 11:28 PM Care Teams Milking System Installer Relationship Specialty Start Date End Date Lewis Chopra MD [address] [place] [id number] PCP - General 02/17/23
--- OUTSIDE RECORDS SUMMARY | 2025-08-30 18:28 | XMS_ITS | Encounter Summary ---
Author Organization [facility] Address [address] [place] [address] Care Team Providers Care Medical Secretary Receptionist Name Role Phone Lewis Chopra MD Primary Care Provider [phone] Encounter Details Date Type Department Care Team (Late st Contact Info) Description 03/16/2023 Telephone [facility] - Infectious Disease [address] [facility] [place] [address] Harrison Titus MD [facility] [place] [address] Social History Tobacco Use Types [...] and heating? Not hard at all 02/16/2023 [facility] of Occupat ional Health - Occupational Stress [...] place to sleep or slept in a fci (including now)? 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 OP ANTIBIOTIC THERAPY appt rescheduled to 04/12/2023 because he will have NO transportation. Schedule conflict. The Rehab center is [facility], , contact is Amaya over scheduling and transportation. Give her a call to reschedule and with any questions. Thanks. Patient Call Back number: [phone] documented in this encounter Plan of Treatment Not on file documented as of this encounter Visit Diagnoses Not on filedocumented in this encounter Additional Health Concerns Infection Onset Date Last Indicated Resolved Time MRSA 02/16/2023 02/23/2023 documented as of this encounter Care Teams Medical Secretary Receptionist Relationship Specialty Start Date End Date Lewis Chopra MD [address] [place] [address] PCP - General 02/17/23 documented as of this encounter
--- OUTSIDE RECORDS SUMMARY | 2025-08-30 18:28 | XMS_ITS ---
Author Organization [facility] Care Team Providers Care Rabbit Dresser Name Role Phone Hong Mendez Unavailable Unavailabl e Allergies and adverse reactions No Known Allergies Care Team Name Role Address Phone Organization Dates Hong Mendez PCP [address] [place], [address], [place] (Office): : [facility] 07/30/2023 - 03/08/2024 Immunizations Immunization Status Vaccine Details Vaccine Code CodeSystem Sebas e Notes Influenza completed Influenza, high-dose, split virus, quadrivalent, injectable, preservative free lotNumber: [id number] expiry: 04/14/2024 197 CVX created date: 08/05/2023 [...] delirium ind icated PHQ-9 12 moderate depres shasta Insurance Providers Problems Problem # Description Date of onset Resolved Date Code CodeSystem Concern Status 1 PRESSURE ULCER OF LEFT BUTTOCK, STAGE 3 03/02/[address] active 2 CHRONIC KIDNEY DISEASE, STAGE 3B 07/30/[address] active 3 ACUTE AND CHRONIC RESPIRATORY FAILURE WITH HYPOXIA 07/29/[address] active 4 ANEMIA, UNSPECIFIED 07/29/[address] active 5 BODY MASS INDEX [BMI] 45.0-49.9, ADULT 07/29/[address] active 6 CHRONIC KIDNEY DISEASE, UNSPECIFIED 07/29/[address] active 7 CHRONIC OBSTRUCTIVE PULMONARY DISEASE, UNSPECIFIED 07/29/[address] active 8 EMPHYSEMA, UNSPECIFIED 07/29/[address] active 9 GASTRO-ESOPHAGEAL REFLUX DISEASE WITHOUT ESOPHAGITIS 07/29/[address] active 10 GENERALIZED ANXIETY DISORDER 07/29/[address] active 11 HYPERLIPIDEMIA, UNSPECIFIED 07/29/[address] active 12 HYPOTHYROIDISM, UNSPECIFIED 07/29/[address] active 13 MAJOR DEPRESSIVE DISORDER, RECURRENT, MODERATE 07/29/[address] active 14 MUSCLE WEAKNESS (GENERALIZED) 07/29/[address] active 15 MYOCARDIAL INFARCTION TYPE 2 07/29/[address] active 16 NEUROMUSCULAR DYSFUNCTION OF BLADDER, UNSPECIFIED 07/29/[address] active 17 OTHER LACK OF COORDINATION 07/29/[address] active 18 POLYNEUROPATHY, UNSPECIFIED 07/29/[address] active 19 PRESSURE ULCER OF LEFT HEEL, UNSTAGEABLE 07/29/[address] active 20 PRIMARY GENERALIZED (OSTEO)ARTHRITIS 07/29/[address] active 21 UNSPECIFIED SEVERE PROTEIN-CALORIE MALNUTRITION 07/29/[address] active 22 VENTRICULAR TACHYCARDIA, UNSPECIFIED 07/29/[address] active 23 WEAKNESS 07/29/[address] active 24 OTHER ACIDOSIS 03/06/[address] active 25 DIABETES INSIPIDUS 03/02/[address] active 26 DUODENAL ULCER, UNSPECIFIED ACUTE OR CHRONIC, WITHOUT HEMORRHAGE OR PERFORATION 03/02/[address] active 27 OTHER NONSPECIFIC ABNORMAL FINDING OF LUNG FIELD 03/02/[address] active 28 SEPSIS DUE TO METHICILLIN RESISTANT STAPHYLOCOCCUS AUREUS 02/26/[address] active 29 NEPHROTIC SYNDROME WITH UNSPECIFIED MORPHOLOGIC CHANGES 02/23/[address] active 30 ATHEROSCLEROSIS OF CORONARY ARTERY BYPASS GRAFT(S) WITHOUT ANGINA PECTORIS 02/17/[address] active 31 BACTEREMIA 02/17/[address] active 32 ESSENTIAL (PRIMARY) HYPERTENSION 02/17/[address] active 33 MORBID (SEVERE) OBESITY WITH ALVEOLAR HYPOVENTILATION 02/17/[address] active 34 OBSTRUCTIVE SLEEP APNEA (ADULT) (PEDIATRIC) 02/17/[address] active 35 TYPE 2 DIABETES MELLITUS WITH KETOACIDOSIS WITHOUT COMA 02/17/[address] active 36 UNSPECIFIED ATRIAL FIBRILLATION 02/17/[address] active 37 UNSPECIFIED DIASTOLIC (CONGESTIVE) HEART FAILURE 02/17/[address] active 38 CAUDA EQUINA SYNDROME 02/16/[address] active Reason for Referral No Reasons for Referral Entered Social History Social History Observation Description Start Date End Date Code Code System Current Smoking Status Tobacco smoking consumption unknown 747002218 SNOMED CT Sex Assigned At Male 1955 42651-5 [facility] Gender Identity Male 68543957044925 [address] Sexual Orientation Vital Signs Code Code System Vitals Name Values and Units Timing Information 41937-0 [facility] Pain Level Value=0.0 03/08/2024 2339-0 [facility] Blood Sugar Whmjz=293.0 Units=mg/dL 03/08/2024 9279-1 [facility] Respiratory Rate Value=18.0 Units=/m in 02/01/2024 8462-4 [facility] Blood Pressure-Diastolic Value=82 Un its=mmHg 02/01/2024 8480-6 [facility] Blood Pressure-Systolic Blqzz=405 Un its=mmHg 02/01/2024 8310-5 [facility] Body Temperature Value=98.0 Units= F 02/01/2024 8867-4 [facility] Heart rate Value=82.0 Units=/min 84785-3 INC Weight Bpjvw=408.6 Units=Lbs 96815-0 [facility] O2 % BldC Oximetry Value=97.0 Units= % 12/03/2023 8302-2 [facility] Height Value=68.0 Units=Inches 08/02/2023
--- OUTSIDE RECORDS SUMMARY | 2025-08-30 18:28 | XMS_ITS | Clinical Summary ---
Author Organization [facility] Lisy Diaz Address [address] [place] [address] Care Team Providers Care Fire Patrol Name Role Phone Jaya Dailey MD Primary Care Provider [phone] Allergies No known active allergies Medications aspirin [...] on file Legal Sex Male 3:40 PM SONAR WATCHSTANDER Gender Identity Not on file Sexual Orientation Not on file Last Filed Vital Signs Vital Sign Reading Time Taken Comments Blood Pressure 133/49 01/03/2023 2:03 PM SONAR WATCHSTANDER Pulse 73 01/03/2023 2:34 PM SONAR WATCHSTANDER Temperature 36.4 C (97.6 F) 01/03/2023 2:03 PM SONAR WATCHSTANDER Respiratory Rate 10 01/03/2023 2:03 PM SONAR WATCHSTANDER Oxygen Saturation 98% 01/03/2023 2:03 PM SONAR WATCHSTANDER Inhaled Oxygen Concentration - - Weight 181.4 kg (400 lb) 01/03/2023 2:03 PM SONAR WATCHSTANDER Height 176.8 cm (5' 9.6) 01/03/2023 2:03 PM SONAR WATCHSTANDER Body Mass Index 58.06 01/03/2023 2:03 PM SONAR WATCHSTANDER Plan of Treatment Health Maintenance Due Date [...] 2025 Insurance MEDICARE PART A AND B [facility] MEDICARE PART A AND B Care Teams Fire Patrol Relationship Specialty Start Date End Date Jaya Dailey MD [address] [place] [address] PCP - General Family Practice 01/03/23
--- OUTSIDE RECORDS SUMMARY | 2025-08-30 18:28 | XMS_ITS | Clinical Summary ---
Author Organization [facility] Address [address] [place] [address] Phone Care Team Providers Care Restaurant Service Manager Name Role Phone Jaya aDiley MD Primary Care Provider [phone] Allergies No known active allergies Medications aspirin [...] Comments Blood Pressure 100/70 10/23/2020 11:23 AM COMMUNICATIONS PROJECT MANAGER Pulse 72 10/23/2020 11:23 AM COMMUNICATIONS PROJECT MANAGER Temperature 36.7 C (98 F) 10/23/2020 11:23 AM COMMUNICATIONS PROJECT MANAGER Respiratory Rate - - Oxygen Saturation - - Inhaled Oxygen Concentration - - Weight 181 kg (400 lb) 10/23/2020 11:23 AM COMMUNICATIONS PROJECT MANAGER Height 175.3 cm (5' 9) 10/23/2020 11:23 AM COMMUNICATIONS PROJECT MANAGER Body Mass Index 59.07 10/23/2020 11:23 AM COMMUNICATIONS PROJECT MANAGER Plan of Treatment Health Maintenance Due Date Last Done Comments Pneumococcal PPSV23/PCV13 65 + Years / Low and Medium Risk (1 of 2 - PCV) 2007 Influenza Vaccine (#1) 2025 Insurance [employer] Care Teams Restaurant Service Manager Relationship Specialty Start Date End Date Jaya Dailey MD [address] [place] [address] PCP - General Family Medicine 10/21/20
--- OUTSIDE RECORDS SUMMARY | 2025-08-30 18:28 | XMS_ITS | Clinical Summary ---
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 Given at 6 am 30 [...] 09/23/2023 Assessment & Plan (09/23/2023 4:10 PM WELLNESS SPECIALIST): By hx suspect more gas/bloating Consider constipation [...] 08/01 Assessment & Plan (09/23/2023 4:09 PM WELLNESS SPECIALIST): Wound care following Still wrapped No active [...] 08/01/2023 Assessment & Plan (09/23/2023 4:09 PM WELLNESS SPECIALIST): Multifactorial Also obstructive Cont murillo Assessment & Plan (08/11/2023 8:25 PM CDT): Has catheter Staff to arrange urology fu for xchg Assessment & Plan (08/05/2023 4:24 PM CDT): Has murillo in place, hx of SAMANTA, unlikely to improve Assessment & Plan (08/01/2023 7:45 PM CDT): Cont spc Rt samanta Has 102 uro appt Encounter for examination for admission to [facility] 07/28/2023 Chronic atrial fibrillation 07/28/2023 Assessment [...] to obtain cardiac clearance but patients primary pill machine operator will not give d/t not seeing in [...] 04/28/2023 Assessment & Plan (11/16/2023 4:16 PM WELLNESS SPECIALIST): Multifactorial related to chronic illness and cauda [...] PM CDT): Cr at baseline. Continue to [facility]. Assessment & Plan (04/28/2023 3:58 PM CDT): Cmp ordered as follow up Nonsustained ventricular tachycardia 04/26/2023 Assessment & Plan (04/28/2023 3:56 PM CDT): Monitor for arrhythmia Acquired hypothyroidism 04/26/2023 Assessment & Plan (04/28/2023 3:57 PM CDT): Tsh ordered Hosp tsh reviewed Cont synthroid Macrocytic anemia 03/25/2023 Permanent atrial fibrillation 03/25/2023 Assessment & Plan (11/16/2023 4:16 PM WELLNESS SPECIALIST): Currently rate controlled. Continue metoprolol. Discussed with [...] 02/16/2023 Assessment & Plan (11/16/2023 4:16 PM WELLNESS SPECIALIST): Currently compensated. Continue metolazone metoprolol. Assessment & [...] (07/04/2023 2:40 PM CDT): Was able to transcription coordinator parallal bars with tx. Slow but consistent progress. Continue to [facility]. Assessment & Plan (06/27/2023 11:00 AM [...] (01/30/2019): Added automatically from request for surgery [id number] Diabetic polyneuropathy asso ciated with type 2 [...] lopressor Assessment & Plan (01/05/2018 11:41 AM WELLNESS SPECIALIST): Controlled. Continue with metoprolol. Monitor blood pressure [...] lispro Assessment & Plan (01/05/2018 11:42 AM WELLNESS SPECIALIST): Insulin pump being held for now. SSI [...] CDT): Brought this to the attention of inspector weights and measures Halina who will ask for an air [...] 03/25/2023 Assessment & Plan (01/05/2018 11:39 AM WELLNESS SPECIALIST): Troponin peaked at 35.95. EKG as noted above. Cardiology has been consulted and pt is now s/p cardiac catheterization with possible plans to re-enter for further intervention. ASA, Brillinta, Bb, Sony, and Statin ordered. Continue with telemetry. Smoking addiction 01/05/2018 03/25/2023 Assessment & Plan (01/05/2018 11:42 AM WELLNESS SPECIALIST): Counseled on cessation. Morbid obesity 01/05/2018 03/25/2023 Assessment & Plan (01/05/2018 11:44 AM WELLNESS SPECIALIST): Pt reports a weight loss of 30+ [...] wound of left heel see pics in [facility] from end of april 2023 Polyneuropathy Encounter for wound care 05/23/23 patient has puncture wound right lateral chest and DTI left heel per Raquel nurse at [facility] they are treating . Pneumonia 02/2023 see [...] 07/28/2023 How often do you attend [employer] or judaism services? Never 07/28/2023 Do you belong to [...] place to sleep or slept in a long term (including now)? No 07/28/2023 Personal Safety Answer Date Recorded Have you ever been in or are you currently in a harmful physical or emotional relationship or is someone making you feel afraid or unsafe? Denies 01/29/2024 Sex and Gender Information Value Date Recorded Sex Assigned at Not on file Legal Sex Male 3:19 AM WELLNESS SPECIALIST Gender Identity Not on file Sexual Orientation [...] Completed 02/14/2023 Medical Devices Implanted Type Area Surgical First Assistant Device Identifier Shelf Expiration Date Model / Serial / Lot InstantQ Zbigniew [id number] Synergy 2.5mm 24mm 144cm Radiopaque 1 Access Port Inflation Lumen - [id number] Implanted:Qty: 1 on 02/22/2019 by Brock Carr MD at [facility] Stent N/A: Heart [employer] Zbigniew 11/13/2020 [id number] / / [id number] [employer] Zbigniew [id number] Synergy 3mm 20mm 144cm Radiopaque 1 Access Port Inflation Lumen - [id number] Implanted:Qty: 1 on 02/22/2019 by Brock Carr MD at [facility] Stent N/A: Heart [employer] Zbigniew 11/08/2020 [id number] / / [id number] Insulin Pump Abdomen System Coronary Stent Synergy Pebax Everolimus Eluting Wainwright Chromium Plga L16 Mm L144 Cm Od2.5 Mm Radiopaque 1 Access Port Inflation Lumen Accepts .014 In Guidewire - [id number] Implanted:Qty: 1 on 01/04/2018 by Ofelia Ruiz MD at [facility] [employer] Zbigniew 09/19/2018 [id number] / / [id number] System Coronary Stent Synergy Pebax Everolimus Eluting Wainwright Chromium Plga L20 Mm L144 Cm Od2.5 Mm Radiopaque 1 Access Port Inflation Lumen Accepts .014 In Guidewire - [id number] Implanted:Qty: 1 on 01/04/2018 by Ofelia Ruiz MD at [facility] [employer] Zbigniew 10/18/2018 [id number] / / [id number] Daig Zbigniew/[employer] [id number] Angio-Seal Vip Bondek-Plus 6fr .035in 70cm Hemostatic Latex Free - [id number] Implanted:Qty: 1 on 02/22/2019 by Brock Carr MD at [facility] Right: Groin Daig Zbigniew/[employer] 10/06/2019 [id number] / / [id number] Procedures Procedure Name Priority Date/Time Associated Diagnosis Comments POCT LIPID PANEL Routine 08/08/2024 10:5 4 AM CDT Lipid screening EGFR Routine 07/29/2023 7:15 AM CDT HEMOGLOBIN A1C Routine 05/02/2023 8:[address] ABDOMEN PELVIS WO CONTRAST ED 02/14/2023 10:33 AM CDT ALBUMIN CREATININE RATIO, URINE Routine 11/06/2019 7:26 AM WELLNESS SPECIALIST from Last 3 Months or Most Recently [...] LAB BLOOD ORDERABLES Stephanie susie Result [facility] [address] Department [place] [address] * (ABNORMAL) Hemoglobin A1c (05/02/2023 8:35 AM CDT) Hgb A1C 5.7(H) 4.0 - 5.6 % [facility] Comment:Testing performed by : [address] [address] Estimated Average Glucose 117 mg/dL [facility] Comment: The ADA recommends reporting an estimated Average Glucose (eAG) with all Hemoglobin A1c results using the equation derived from a study of 507 normal and diabetic adults. Minority populations were underrepresented and children were not included. (Diabetes Care 31:1472-1935, 2008). The eAG is not equivalent to a fasting glucose. Testing performed by: [address] [address] Blood 05/02/2023 8:35 AM CDT 05/02/2023 9:24 AM CDT us Bennie Oliveira MD LAB BLOOD ORDERABLES Final R esult [facility] [address] Department [place] [address] * CT Abdomen Pelvis WO Contrast (02/14/2023 [...] Harrison Islas M.D. KR T: Report ID: [id number] Reading Location: [id number] Procedure Note Harrison Islas MD - 02/14/2023 [...] Harrison Islas M.D. KR T: Report ID: [id number] Reading Location: [place] [address] Nico Roy DO IMG CT PROCEDURES Final Res ult * (ABNORMAL) Albumin Creatinine Ratio, Urine (11/06/2019 7:26 AM WELLNESS SPECIALIST) Creatinine, ur 57 20 - 320 mg/dL [place] [facility] [facility] Microalbumin, ur 6.4 See Note: mg/dL [facility] Comment: Reference Range: Reference Range Not established Microalbumin/creat ratio 112(H) <30 mcg/mg creat [facility] Comment: The ADA defines abnormalities in albumin excretion as follows: Category Result (mcg/mg creatinine) Normal <30 Microalbuminuria 30-299 Clinical albuminuria > OR = 300 The ADA recommends that at least two of three specimens collected within a 3-6 month period be abnormal before considering a patient to be within a diagnostic category. 11/06/2019 7:2 6 AM WELLNESS SPECIALIST 11/06/2019 7:29 AM WELLNESS SPECIALIST Narrative Resulting Agency Comment Performing Organization Information: Site ID: [place] Name: [facility] Address: [address] [place] [id number] Director: Kali Sheppard D.O., MPH us Anu [facility] LAB URINE ORDERABLES Fi nal Result JESUS MANUEL [place] [facility] [place] from Last 3 Months or Most Recently Relevant to Health Maintenance Additional Health Concerns Infection Onset Date Last Indicated CRE 07/17/2023 07/17/2023 MDR gram neg/ESBL 07/17/2023 07/17/2023 Insurance [place] U[place] MEDICARE ADVANTAGE MEDICARE [facility] Advance Directives For more information, please contact: [phone] Documents on File Type Date Recorded Patient Visual Stylist Expl anation ADVANCE DIRECTIVE 05/02/2023 11:29 AM [...] 8:26 AM 07/13/2023 4:49 AM Care Teams Body Welder Relationship Specialty Start Date End Date Jaya Dailey MD PCP - General Family Medicine 01/18/19 Abelardo Gastelum MD [address] [facility] DEPT [place] [address] Orthopedic Surgery 05/09/23
--- OUTSIDE RECORDS SUMMARY | 2025-08-30 18:28 | XMS_ITS | Clinical Summary ---
Author Organization [facility] Address [address] [place] [address] Care Team Providers Care Telescope Maintenance Name Role Phone Jaya Dailey MD Primary Care Provider [phone] Encounters Date Type Department Care Team Description 07/19/2025 Telephone [facility] Medical [facility] - [address] [place] [address] Garett Rubin MD Reschedule from [...] st Contact Info) Description 10/30/2025 10:[address]ER Office Visit [facility] Medical [facility] - [facility] [address] [facility], [address] [place] [id number] Garett Rubin MD [address] [place] [address] Health Maintenance Due Date Last Done Comments Colorectal Cancer Screening Colonoscopy (10 Years) 1957 Hepatitis C 1975 DTaP, Tdap and Td Vaccines ( 1 - Tdap) 1976 Pneumococcal Vaccine: 50+ Ye ars (1 of 1 - PCV) 2007 Zoster Vaccines (1 of 2) 2007 Annual Medicare Wellness Visit 2022 PHQ-2 (Physician [place]) 11/07/2024 COVID-19 Vaccine (1 - 2024-2 6 [...] patient's age to complete this topic Insurance [facility] UHC MEDICARE Care Teams Telescope Maintenance Relationship Specialty Start Date End Date Jaya Dailey MD [address] [place] [address] PCP - General FAMILY PRACTICE 06/18/25
--- NOTE | 2025-08-30 18:35 | ECG_ITS ---
Test Date: 2025-08-30 19:01:42 Measurements Intervals [place] Rate: 120 P: 0 IN: 0 QRS: -41 QRSD: 112 T: 62 QT: 331 QTc: 469 Interpretive Statements ATRIAL FLUTTER/TACHYCARDIA WITH RAPID VENTRICULAR RESPONSE QRS MORPHOLOGY ALTERNATES FROM NARROW COMPLEX TO LEFT BUNDLE BRANCH BLOCK BORDERLINE ST-T WAVE ABNORMALITY- ANTEROLAT/HIGH LAT LEADS BASELINE ARTIFACT- I, II, AVR, AVL, AVF ABNORMAL ECG No previous ECG available for comparison Electronically Signed On 08-30-2025 21:09:12 CDT by Mukesh Diallo D.O.
--- NOTE | 2025-08-30 19:39 | ED_ITS ---
HPI - General Adult General Chief complaint: Urogenital-Male Stated complaint: scrotal swelling Time Seen by Provider: 08/30/25 19:20 History of Present Illness HPI narrative: This is a 70-year-old male with a history of atonic bladder with suprapubic catheterization coronary artery disease, CHF chronic kidney disease presenting with testicular swelling. Patient says his testicles have been getting more swollen over last several days. They are not painful. He has some chronic dyspnea but is not seem worse than usual. He is not on a diuretic. Patient has had this occur in the past. Related Data Allergies Allergy/AdvReac Type Severity Reaction Status Date / Time atorvastatin AdvReac Intermediate myalgia Verified 08/30/25 18:33 [facility] Past Medical History Medical History Resistance to multiple antimicrobial drugs Gross hematuria Type 2 diabetes mellitus with hyperglycemia Poor kidney function Diabetes mellitus with chronic kidney disease Type 2 diabetes mellitus with unspecified diabetic retinopathy with macular edema BMI 45.0-49.9, adult Insulin dependent type 2 diabetes mellitus Urinary tract infection associated with catheterization of urinary tract Morbid (severe) obesity due to excess calories CAD (coronary artery disease) Hyperlipidemia Microhematuria Congestive heart failure Umbilical hernia ASHD (arteriosclerotic heart disease) Depression with anxiety Essential (primary) hypertension Insomnia PERLITA on CPAP Polyneuropathy, unspecified Pure hypercholesterolemia Type 2 diabetes mellitus without complication, with long-term current use of insulin Now has diabetic retinopathy in the right eye Surgical History Surgical History Status post medial meniscus repair of left knee H/O skin graft left ankle History of removal of pigmented skin lesion eyelids H/O heart artery stent 2 in 2018 and 2 in 2019. History of left shoulder replacement 1 week ago S/P tonsillectomy and adenoidectomy Family History Family History Father Family history of malignant neoplasm Leukemia Mother Family history of kidney disease Kidney failure Sibling Acute myocardial infarction Alcohol abuse Lung cancer Other Cerebrovascular accident Diabetes mellitus Family history of arthritis Family history of coronary artery disease Family history of elevated blood lipids Family history of glaucoma Family history of hypercholesterolemia Family history of obesity Hypertension Social History Social History (Reviewed 08/28/25 @ 15:36 by ANASTACIA Rothman Social History: Surrogate medical decision maker: Rich Quinonez, star. Code status: Do not resuscitate. 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 Morbidly obese Head: atraumatic. EYES: EOMI, NOSE: Atraumatic NECK: Trachea midline RESPIRATORY: No increased rate of breathing clear to auscultation CARDIOVASCULAR: Tachycardic, minimal edema to the lower extremities although significant edema to the pannus and scrotum. ABDOMINAL: Obese, soft nontender suprapubic catheter in place exam: Scrotum is grossly swollen and penis is buried MUSCULOSKELETAl: No obvious deformities NEURO: Alert. Moving 4/4 extremities SKIN:: Significant swelling to the scrotum and pannus. No skin breakdown, erythema or signs of infection. PSYCHIATRIC: Normal affect Course Vital Signs Vital signs: Vital Signs Temperature 97.1 F L 08/30/25 18:27 Pulse Rate 120 H 08/30/25 18:27 Respiratory Rate 18 08/30/25 18:27 Blood Pressure 135/95 H 08/30/25 18:27 Pulse Oximetry 99 08/30/25 18:27 Oxygen Delivery Room Air 08/30/25 18:27 Temperature 97.1 F L 08/30/25 18:27 Pulse Rate 120 H 08/30/25 18:27 Respiratory Rate 18 08/30/25 18:27 Blood Pressure 135/95 H 08/30/25 18:27 Pulse Oximetry 99 08/30/25 18:27 Oxygen Delivery Room Air 08/30/25 18:27 Medical Decision Making [facility] Narrative Medical decision making narrative: -Course: 70-year-old male with history of congestive heart failure presenting with significant edema of the abdomen and scrotum. Patient is tachycardic on arrival. He is speaking in full sentences with mild bibasilar rales. He is not requiring supplemental oxygen and is not complaining of shortness of breath. Physical exam shows significant edema of the scrotum and abdomen without evidence of infection or cellulitis. Suprapubic catheter is placed and is draining appropriately, patient does not have fevers/suprapubic pain/flank pain or elevated white count to indicate urinary tract infection. Scrotum was elevated. Ultrasound has been ordered although this will not occur told the morning. Low concern for emergent testicular pathology. Laboratory studies showed a BNP of 9200. Chest x-ray showed cardiomegaly with mild pulmonary edema. Kidney function at baseline. Patient's presentation consistent with fluid overload due to congestive heart failure. Patient given 40 mg of Lasix. EKG shows atrial fibrillation with rapid ventricular response. Patient given 5 mg of IV Lopressor. Patient will placed in the IMU for further management. -DDX includes but is not limited to: Congestive heart failure, anasarca, varicocele -Co-morbidities complicating care: Obesity, CHF, atonic bladder, Vital Signs Vital Signs: Vital Signs Temperature 97.1 F L 08/30/25 18:27 Pulse Rate 120 H 08/30/25 18:27 Respiratory Rate 18 08/30/25 18:27 Blood Pressure 135/95 H 08/30/25 18:27 Pulse Oximetry 99 08/30/25 18:27 Oxygen Delivery Room Air 08/30/25 18:27 Temperature 97.1 F L 08/30/25 18:27 Pulse Rate 120 H 08/30/25 18:27 Respiratory Rate 18 08/30/25 18:27 Blood Pressure 135/95 H 08/30/25 18:27 Pulse Oximetry 99 08/30/25 18:27 Oxygen Delivery Room Air 08/30/25 18:27 Lab Data 08/30/25 20:02 08/30/25 20:02 Labs: Lab Results 08/30/25 Range/Units 20:02 WBC 7.4 (4.5-10.0) K/mm3 RBC 4.53 L (4.6-6.20) M/mm3 Hgb 13.8 L (14.0-18.0) g/dL Hct 44.5 (42.0-52.0) % MCV 98.2 (80-100) fl MCH 30.5 (26-34) pg MCHC 31.0 L (32-36) g/dl RDW 14.3 (11.5-14.5) % Plt Count 161 (150-375) k/mm3 MPV 9.4 (7.4-10.4) fl Immature Gran % (Auto) 0.4 (0-0.5) % Neut % (Auto) 74.1 H (45.5-73.1) % Lymph % (Auto) 15.9 L (18.3-44.2) % [place] % (Auto) 6.7 (2.6-8.5) % Eos % (Auto) 2.2 (0-4.4) % Baso % (Auto) 0.7 (0.2-1.2) % Lymph # (Auto) 1.18 (0.9-3.2) K/mm3 [place] # (Auto) 0.5 (0.1-0.6) K/mm3 Eos # (Auto) 0.2 (0-0.3) K/mm3 Baso # (Auto) 0.1 (0.0-0.1) K/mm3 Abs Immat Gran (auto) 0.03 (0.00-0.031) K/mm3 Absolute Neuts (auto) 5.5 (1.3-6.7) K/mm3 Absolute Nucleated RBC 0.000 (0.0-0.012) K/mm3 Nucleated RBC % 0.0 (0.0-0.2) % Sodium 140 (137-145) mmol/L Potassium 4.3 (3.4-5.0) mmol/L Chloride 107 (98-107) mmol/L Carbon Dioxide 24 (22-30) mmol/L Anion Gap 9 (4-12) mmol/L BUN 26 H (9-20) mg/dL Creatinine 1.96 H (0.7-1.3) mg/dL Estim Creat Clear Calc 44 ml/min Estimated GFR 34 L (59 - ) Glucose 126 H (65-110) mg/dL Calcium 8.4 (8.4-10.2) mg/dL Total Bilirubin 1.2 (0.2-1.3) mg/dL AST 26 (17-59) U/L ALT 13 (6-50) U/L Alkaline Phosphatase 97 (38-126) U/L NT-Pro-B Natriuret Pep 9280 H (19.9-100) pg/mL Total Protein 8.5 H (6.3-8.2) g/dL Albumin 4.3 (3.5-5.1) g/dL Discharge Plan Discharge Clinical Impression: CHF (congestive heart failure), Edema, peripheral, Scrotal edema Patient Disposition: Home Condition: Stable Instructions: Antibiotic Form Patient Language: Serbian Prescriptions: No Action Eliquis 5 mg tablet 5 mg PO BID Qty: 180 6RF (DME) Prodigy No Coding Strip See Rx Instructions .ROUTE .MEDSUPPLY Qty: 50 0RF Rx Instructions: Use to check BS 4 times daily levofloxacin 250 mg tablet 250 mg PO DAILY 10 Days Qty: 10 0RF Rx Instructions: Take 2 tablets (500mg) the first day, and 1 tablet (250mg) daily until complete Follow-up/Referrals: Jaya Dailey MD [Primary Care Provider, Family Practice]
[2025-08-30] MEDS: FUROSEMIDE INJ 40 MG/4 ML VIAL IV PUSH (20:06)
[2025-08-30 20:09] LABS: Hematocrit 44.5 % (42.0-52.0); Hemoglobin 13.8 g/dL (14.0-18.0); Immature Granulocyte Percent A 0.4 % (0-0.5); Lymphocytes Absolute Auto 1.18 K/mm3 (0.9-3.2); Mean Corpuscular HGB Conc 31.0 g/dl (32-36); Mean Corpuscular Hemoglobin 30.5 pg (26-34); Mean Corpuscular Volume 98.2 fl (80-100); Nucleated Red Blood Cells Absolute Auto 0.000 K/mm3 (0.0-0.012); Nucleated Red Blood Cells Perc 0.0 % (0.0-0.2); Platelet Count Result 161 k/mm3 (150-375); Red Blood Count 4.53 M/mm3 (4.6-6.20); White Blood Count 7.4 K/mm3 (4.5-10.0)
[2025-08-30 20:54] LABS: Alanine Aminotransferase 13 U/L (6-50); Albumin Level 4.3 g/dL (3.5-5.1); Alkaline Phosphatase 97 U/L (38-126); Anion Gap 9 mmol/L (4-12); Aspartate Amino Transferase 26 U/L (17-59); Bilirubin,Total 1.2 mg/dL (0.2-1.3); Blood Urea Nitrogen 26 mg/dL (9-20); Calcium 8.4 mg/dL (8.4-10.2); Carbon Dioxide 24 mmol/L (22-30); Chloride 107 mmol/L (98-107); Estimated CRCL calculation 44 ml/min; Estimated Glomerular Filt Rate 34; Glucose 126 mg/dL (65-110); NT Pro B Type Natriuretic Pept 9280 pg/mL (19.9-100); Potassium 4.3 mmol/L (3.4-5.0); Sodium 140 mmol/L (137-145); Total Protein 8.5 g/dL (6.3-8.2)
[2025-08-30] MEDS: METOPROLOL TARTRATE INJ 5 MG/5 ML VIAL IV PUSH (21:42)
[2025-08-30 21:54] LABS: Add Urine Microscopic? YES; Appearance Urine Clear (Clear); Glucose Urine UA Negative (Negative); Leukocyte Esterase Ur 2+ LEU/UL (Negative); Nitrate Urine Negative (Negative); Non Pathogenic Casts 0-2; Specific Grav Ur 1.007 (1.001-1.035)
--- NOTE | 2025-08-30 22:16 | P.HP_ITS ---
H&P: HPI History of Present Illness Date/Time: 08/30/25 23:50 Chief Complaint: Unable to walk due to Scrotal swelling Narrative: Pleasantly Loquacious 70-year-old male with a past medical history of incomplete paraplegia due to prior spinal surgery, atonic bladder with suprapubic catheter, insulin-dependent diabetes mellitus, coronary artery disease, essential hypertension, obstructive sleep apnea, paroxysmal atrial fibrillation on chronic anticoagulation and diastolic heart failure among other comorbidities who presented to the ER from home due to worsening scrotal edema so bad that he cannot walk. He assumed that is scrotal swelling was due to urological difficulties given that he has a suprapubic catheter so he contacted his urologist to recommend he come into the ER for evaluation. The patient states that as outpatient he has been treated with antibiotics for a ?UTI? by his primary care provider. He reported that he was having some blood-tinged urine and cloudy urine but was not having any fevers or chills. It looks like he had Bactrim ordered for 7 days on August 07 at that time he had a urine culture that was negative. He contacted his primary care provider again on the and received a prescription for Cipro for 10 days with no urine study performed at that time. He then contacted primary care office again on the and was given a prescription for Levaquin. He reported that somewhere between the Cipro and Levaquin the faint blood tension episodes had resolved. He actually reports that his urine looks better now that he has gotten Lasix in the ER than it has in weak but since he was concerned that is scrotal edema could be due to a urinary tract infection he not only took the Levaquin but are not dose of Cipro that he had left over today prior to coming to the ER. Patient reported that his testicles had been getting more swollen and painful are last 5-6 days.. He has never had significant scrotal swelling in the past. He has also noticed increased abdominal distension and reports that his abdomen feels tight and hard. He has also noticed significant tightness and firmness to pannus and the area just above his penis. He reports that he has noticed these changes that have been progressive for the last 3-5 months. He has noticed at least 50 lb weight gain over the last 6 months despite trying to limit his food intake he weighs himself once a month. He admits that he has not been taking as metoprolol or diuretics for at least 6 months. But he randomly decided to take a dose of his metoprolol this morning before coming to the hospital. He contacted is urologist had recommended that he come into the ER for evaluation. He reported chronic dyspnea on exertion not worse than usual. On presentation to the ER he was noted to be tachycardic with heart rates in the 120s. EKG did demonstrate AFib with RVR. Patient has known history of paroxysmal AFib he had not noticed any symptoms/palpitations. He told nursing staff that he randomly took his Eliquis today. He tells me that he has actually been compliant with his Eliquis but he has not been on his metoprolol for approximately 6 months. He also tells me that he and has not been on is levothyroxine since February. I suspect the patient does not exactly know what his home medications are in that he only knows that he is taking 2 medications currently 1 of which is in antibiotic. The he denied having any increased shortness of breath until today. He reported that he thought it was odd that he it required maximum exertion for him to transfer from the car to his wheelchair to come into the hospital. He became acutely when did. He denies having any recent orthopnea or paroxysmal nocturnal dyspnea. He has been compliant with his home CPAP which he reports has a pressure of 19 mm of water. Although he does admit that he had not been wearing his CPAP for quite some time but started wearing it again a couple of weeks ago. This makes me suspicious that the patient may have been having some degree of shortness of breath or orthopnea which encouraged him to start wearing his CPAP again recently. Review of Systems 2 Review of Systems: 12 systems were reviewed with pertinent positives and negatives per HPI. Except as documented in the HPI, all other systems were reviewed and are negative. [facility] Past Medical History Medical History (Updated 08/31/25 @ 05:39 by Radha Rosario DO) Atonic bladder 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 Iron deficiency Spinal cord tumor Stage 3b chronic kidney disease Hypothyroid Vitamin D deficiency, unspecified Atrial flutter Resistance to multiple antimicrobial drugs In the urine Diabetes mellitus with chronic kidney disease Type 2 diabetes mellitus with unspecified diabetic retinopathy with macular edema BMI 45.0-49.9, adult Insulin dependent type 2 diabetes mellitus Morbid (severe) obesity due to excess calories CAD (coronary artery disease) Hyperlipidemia Microhematuria Congestive heart failure Echocardiogram 2019 demonstrated normal ejection fraction with grade 1 diastolic dysfunction Umbilical hernia Depression with anxiety Essential (primary) hypertension Insomnia PERLITA on CPAP CPAP of 19 Polyneuropathy, unspecified Pure hypercholesterolemia Surgical History Surgical History (Updated 08/31/25 @ 05:16 by Radha Rosario DO) Chronic suprapubic catheter (~2023) Status post medial meniscus repair of left knee H/O skin graft left ankle History of removal of pigmented skin lesion eyelids H/O heart artery stent 2 in 2018 and 2 in 2018. History of left shoulder replacement (~2019) S/P tonsillectomy and adenoidectomy Family History Family History Father Family history of malignant neoplasm Leukemia Cerebrovascular accident Diabetes mellitus Exposure to uranium Mother Kidney failure Kidney disease Sibling Acute myocardial infarction Cardiac defibrillator in place Sibling Alcohol abuse Lung cancer Other No problems noted. Other No problems noted. Other Family history of arthritis Family history of coronary artery disease Family history of elevated blood lipids Family history of glaucoma Family history of hypercholesterolemia Family history of obesity Hypertension Social History Social History (Updated 08/31/25 @ 05:25 by Radha Rosario DO) Social History: He lives in his own home. He utilizes a wheelchair for mobility. He can pivot to transfer but for the most part cannot walk. His biological daughter of sepsis and was sounds like Saqib's gangrene. His son is still living. But is surrogate decision maker is his daughter's best friend which she has claimed as his ?unofficial daughter?. His Honorary daughter her and her son live with the patient and help provide his daily cares. He still smokes 3 thin cigars a day. He used to smoke significantly heavier amount and quit smoking for many years before restarting in 2022. 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 He drinks 1 alcoholic beverage about once a month. He intermittently uses marijuana. Surrogate medical decision maker: Jennifer Galarza (Honorary daughter) Code status: Full code (however he would not want long-term ventilation, tracheostomy or PEG tube) Smoking packs per day: 1 Smoking cigarettes per day: 20.0 Years smoked: 35 Smoking pack-years: 35.00 Smoking status: Current every day smoker Tobacco type: cigars Second hand tobacco smoke exposure: Yes Alcohol intake: current Alcohol use details: One drink per month Substance use: current Substance use type: marijuana Do You Feel Safe in your Home?: Yes Lack of Transportation: No Lack of Food: Never True Current Housing: I Have Housing Concerned About Future Housing: No Difficulty Paying Gas/Electric Bills: No Difficulty Paying for Meds: No Currently Unemployed: No Education: High School Diploma/GED Difficulty w/ Childcare or Family Care: No Living arrangements: with family Occupation/Education: retired 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 Gender identity (if verbalized by the patient): Male Spiritual care concerns: No Meds Home Medications and Allergies Home Medications ?Medication ?Instructions ?Recorded ?Confirmed ?Type blood sugar diagnostic (Prodigy No #50 ea 06/14/24 Rx Coding strips) apixaban 5 mg tablet (Eliquis) 5 mg PO BID #180 tabs 0 02/04/25 08/30/25 Rx levofloxacin 250 mg tablet 250 mg PO DAILY 10 days #10 tabs 08/29/25 08/30/25 Rx Allergies Allergy/AdvReac Type Severity Reaction Status Date / Time atorvastatin AdvReac Intermediate myalgia Verified 08/30/25 23:26 Vital Signs Vital Signs - 24 hr 08/30/25 18:27 08/30/25 21:42 Temperature 97.1 F L Pulse Rate 120 H 122 H Respiratory Rate 18 Blood Pressure 135/95 H Pulse Oximetry 99 Oxygen Delivery Room Air Exam 2 Narrative: Weight 135 kg BMI 45.3 Const: Other: Morbidly Obese, chronically ill-appearing, no acute distress HENMT: Other: Crowded posterior oropharynx, tacky mucous membranes, multiple missing teeth in the remainder of dentition and poor condition with dental caries and staining Eyes: Other: Pupils are equal and reactive, no scleral icterus, no conjunctival pallor Neck: Other: Large neck circumference, no JVD but JVD times limited due to body habitus Resp: Other: Decreased breath sounds anteriorly, crackles at the both bases posterior and in lateral lung rodriguez, no increased work of breathing Cardio: Other: Irregularly irregular, tachycardic, 2+ bilateral radial pedal pulses GI: Other: Obese, distended, nontender, abdominal wall edema noted, suprapubic catheter noted and draining well : Other: Suprapubic catheter noted in draining well marked scrotal edema with hidden penis within edematous scrotum, marked edema anasarca to the suprapubic tissues Skin: Other: Anasarca to the abdominal wall and super pubic in general tissues, blister to the posterior left heel consistent with pressure wound, no drainage or surrounding erythema Neuro: Other: Decreased sensation to the left lower extremity patient is unable to lift the left lower extremity unassisted due to chronic neurologic deficits, he has decreased sensation to the right foot but is able to move the right foot but is we can cannot lift up from the bed beyond and inter 2, he has intact sensation of upper extremities, hearing is intact speech is clear fluent, alert oriented x4 Extrem: Other: No clubbing, no cyanosis, chronic venous stasis changes to bilateral lower extremities with nonpitting edema bilateral lower extremities up through the knee with pitting edema up into the thighs and pitting edema anasarca to the anterior abdominal wall, lateral abdominal wall and pubic in inguinal area Psych: Other: Loquacious, pleasant and cooperative, intact judgment and insight H&P: Results Labs Labs: Laboratory Tests 08/30/25 20:02 08/30/25 20:02 08/30/25 08/30/25 20:02 21:43 WBC 7.4 RBC 4.53 L Hgb 13.8 L Hct 44.5 MCV 98.2 MCH 30.5 MCHC 31.0 L RDW 14.3 Plt Count 161 MPV 9.4 Immature Gran % (Auto) 0.4 Neut % (Auto) 74.1 H Lymph % (Auto) 15.9 L [place] % (Auto) 6.7 Eos % (Auto) 2.2 Baso % (Auto) 0.7 Lymph # (Auto) 1.18 [place] # (Auto) 0.5 Eos # (Auto) 0.2 Baso # (Auto) 0.1 Abs Immat Gran (auto) 0.03 Absolute Neuts (auto) 5.5 Absolute Nucleated RBC 0.000 Nucleated RBC % 0.0 Sodium 140 Potassium 4.3 Chloride 107 Carbon Dioxide 24 Anion Gap 9 BUN 26 H Creatinine 1.96 H Estim Creat Clear Calc 44 Estimated GFR 34 L Glucose 126 H Calcium 8.4 Total Bilirubin 1.2 AST 26 ALT 13 Alkaline Phosphatase 97 NT-Pro-B Natriuret Pep 9280 H Total Protein 8.5 H Albumin 4.3 Urine Color Yellow Urine Appearance Clear Urine pH 5.5 Ur Specific [place] 1.007 Urine Protein Trace Urine Glucose (UA) Negative Urine Ketones Negative Ur Blood (Man) 1+ H Urine Nitrate Negative Urine Bilirubin Negative Urine Urobilinogen 0.2 Leukocyte Esterase Rfl 2+ H Urine RBC 11-20 H Urine WBC 11-20 H Ur Squamous Epith Cells None seen Urine Bacteria Rare Urine Casts 0-2 Impressions Chest X-Ray 08/30/25 20:03 IMPRESSION: Cardiomegaly with pulmonary edema suggestive of congestive heart failure. Test Date: 2025-08-30 19:01:42 Measurements Intervals [place] Rate: 120 P: 0 SD: 0 QRS: -41 QRSD: 112 T: 62 QT: 331 QTc: 469 Interpretive Statements ATRIAL FLUTTER/TACHYCARDIA WITH RAPID VENTRICULAR RESPONSE QRS MORPHOLOGY ALTERNATES FROM NARROW COMPLEX TO LEFT BUNDLE BRANCH BLOCK BORDERLINE ST-T WAVE ABNORMALITY- ANTEROLAT/HIGH LAT LEADS BASELINE ARTIFACT- I, II, AVR, AVL, AVF ABNORMAL ECG No previous ECG available for comparison Assessment and Plan Assessment and plan (1) CHF (congestive heart failure): Qualifiers: Heart failure chronicity: acute on chronic Heart failure type: u nspecified Qualified Code(s): I50.9 - Heart failure, unspecified Code(s): I50.9 - Heart failure, unspecified Status: Acute (2) Paroxysmal atrial fibrillation with RVR: Code(s): I48.0 - Paroxysmal atrial fibrillation Status: Acute (3) Scrotal edema: Code(s): N50.89 - Other specified disorders of the male genital organs Status: Acute (4) Hypothyroid: Qualifiers: Hypothyroidism type: unspecified Qualified Code(s): E03.9 - Hypothyroidism, unspecified Code(s): E03.9 - Hypothyroidism, unspecified Status: Acute (5) Essential (primary) hypertension: Code(s): I10 - Essential (primary) hypertension Status: Chronic (6) Stage 3b chronic kidney disease: Code(s): N18.32 - Chronic kidney disease, stage 3b Status: Acute (7) Suprapubic catheter: Code(s): Z93.59 - Other cystostomy status Status: Acute (8) Abnormal urinalysis: Code(s): R82.90 - Unspecified abnormal findings in urine Status: Acute (9) Pressure ulcer of left heel: Qualifiers: Pressure injury stage: unspecified pressure injury stage Qualified Code(s): L89.629 - Pressure ulcer of left heel, unspecified stage Code(s): L89.629 - Pressure ulcer of left heel, unspecified stage Status: Acute Plan The patient presents with worsening scrotal edema. In the ER is found to be in AFib RVR he does have a history of chronic diastolic dysfunction. I suspect the scrotal edema is most likely due to third-spacing of fluid due to use acute on chronic CHF exacerbation. CHF is likely exacerbated due to high output with tachycardia in the setting of AFib. Will obtain echocardiogram in a.m. and monitor strict I&O's. Patient received 40 mg IV Lasix x1 in the ER. Will continue Lasix IV b.i.d.. I requested 1 dose of IV Lopressor be administered in the ER patient's heart rate has come down from the 120s down to 100. Patient will benefit from chronic rate controlling medications. The importance of continuing his metoprolol as directed was discussed in detail. Will restart the patient on metoprolol. But will transition to metoprolol succinate 25 mg instead of metoprolol tartrate to hopefully improve compliance with medications. Will check magnesium with a.m. labs to rule out any other component of electrolyte derangement that could be exacerbating the patient's cardiac arrhythmia. Will monitor strict I&O's and daily weightsy. Patient patient's chronic kidney disease is stable but will monitor electrolyte panel closely given active diuresis. Will avoid nephrotoxic medications. Patient does have a history of hypothyroidism according to prior medical records but from the external medication reconciliation it does not appear the patient has had his levothyroxine refilled since February. Will check TSH with reflex T4 and make medication adjustments as indicated. He has a has essential hypertension and would benefit from improved blood pressure control. Hopefully metoprolol will take care both patient's elevated heart rate and elevated blood pressure. Auto titrating CPAP/BiPAP has been ordered. The patient states that he will need a prescription for new mask and tubing for his CPAP on discharge. Patient has an abnormal appearing urinalysis but he is not having any fever or leukocytosis to suggest infection and he had a negative urine culture with subsequent treatment with 3 additional antibiotics despite the negative urinary tract infection. Will discontinue the Levaquin that was ordered as outpatient. It is not unusual for patient with a chronic suprapubic catheter to have some residual pyuria at baseline and this is not indicative of infection. Patient has a chronic ulcer to left heel. Patient is unable to move this extremity days due to his incomplete paraplegia. Will all fluid areas of pressure and consult Wound Care. No evidence of acute infection. MEDICAL DECISION MAKING NARRATIVE -Spoke with the ED provider in detail regarding patient's evaluation, workup and management -Patient seen and examined at bedside -Collaborated with patient's nurse at the bedside in detail and addressed all concerns -Labs, electrolytes, radiology, investigations and test results personally reviewed and interpreted unless otherwise specified -ED/Consult/Nursing/Ancilliary notes on the chart reviewed and appreciated -Spoke with patient at bedside and diagnosis and plan of care was discussed. All questions answered. Quality VTE Prophylaxis VTE prophylaxis: pharmacologic ordered (Continue home Eliquis.) Hospitalist MIPS Advance Care Plan I have confirmed that the patient's Advanced Care Plan is present, code status is documented, or surrogate decision maker is listed in patient medical record.: Yes Medication Reconciliation I have utilized all available resources to obtain, update and review the patients current medications (includes all prescriptions, OTC, herbals, cannabis, and nutritional supplements).: Yes
--- NOTE | 2025-08-30 22:59 | WNDPHOTO ---
PHOTO ONLY - See Nursing Notes and/ or assessments for documentation.
--- NOTE | 2025-08-30 23:00 | PC.NURSE ---
This patient, Hong Quinonez, was admitted to IMU Room 207-01. Patient/family oriented to hospital policies and general routines including ID bracelet, bed and alarms, visiting hours, pain management, procedures, bathroom and other care routines, personal items, smoking policy, room service/diet, and visiting hours. Information on how to activate the Rapid Response Team has been discussed. Patient/Family are encouraged to report perceived risks to care and to ask questions if they do not understand what they are told or what they should do.
[2025-08-31] VITALS (21 sets, daily range): BP systolic 108–121; BP diastolic 72–86; PULSE 91–110; RESP 16–22; TEMP 36.4–37; O2SAT 97–100
--- NOTE | 2025-08-31 | ECHO_ITS ---
Patient Info Name: Hong Quinonez Age: 70 years : 1955 Gender: Male Ht: 68 in Wt: 297 lbs BSA: 2.61 m2 HR: 99 bpm BP: 121 / 82 mmHg Heart Rhythm: Indeterminant Technical Quality: Good Exam Date: 08/31/2025 12:31 PM Patient Status: I Admit Date: 08/30/2025 Exam Type: CA echo dop color flow w con Complete two-dimensional, color flow and Doppler transthoracic echocardiogram is performed with contrast to opacify the left ventricle and to improve the deliniation of the left ventricle endocardial borders. Staff Referring Physician: Mio Hopkins Brick Handler: Joyce Albright Attending Provider: Radha Rosario DO Contrast/Agitated Saline Contrast/Ag. Saline: Definity Amount: 2.00 ml Summary 1. Definity contrast utilized to improve visualization. 2. Severe LV enlargement with severely reduced systolic function ejection fraction estimates at 20%. 3. Moderate right ventricular enlargement with hypokinesia. 4. Biatrial dilation left greater than right. 5. Moderate mitral regurgitation resulting from annular dilation. Left Ventricle Left ventricular chamber dimension is moderately enlarged. Left ventricular systolic function is severely reduced, estimated at 15-20. The left ventricular diastolic function is indeterminate. Right Ventricle Right ventricular chamber dimension is moderately enlarged. Right ventricular systolic function is reduced. Left Atria Left atrial chamber dimension is moderately enlarged. Right Atria Right atrial chamber dimension is mildly enlarged. Aortic Valve The aortic valve is normal. Pulmonic Valve The pulmonic valve is not well visualized. Mitral Valve The mitral valve has normal leaflets. There is moderate mitral valve regurgitation. Tricuspid Valve The tricuspid valve leaflets are normal. There is mild tricuspid valve regurgitation. Pericardium/Pleural The pericardium appears normal. Aorta The aortic root size at the sinus of Valsalva is normal. Left Ventricular Outflow Tract Name Value Normal LVOT 2D LVOT Diameter 2.0 cm LVOT Doppler LVOT Peak Velocity 85 cm/s LVOT Peak Gradient 3 mmHg LVOT Mean Gradient 2 mmHg LVOT VTI 16 cm LVOT Stroke Volume 50 ml LVOT CO 5.0 l/min LVOT CI 1.9 l/min/m2 Pulmonic Valve Name Value Normal RVOT Doppler RVOT Peak Velocity 60 cm/s RVOT Peak Gradient 1 mmHg PV Doppler PV Peak Velocity 86 cm/s PV Peak Gradient 3 mmHg Mitral Valve Name Value Normal MV Diastolic Function MV E Peak Velocity 105 cm/s MV A Peak Velocity 25 cm/s MV E/A 4.2 MV Decel Time (PW) 234 ms MV Annular TDI MV E/e' (Septal) 14.9 MV E/e' (Lateral) 9.5 MV E/e' (Average) 12.2 Tricuspid Valve Name Value Normal TV Regurgitation Doppler TR Peak Velocity 311 cm/s TR Peak Gradient 39 mmHg Aortic Valve Name Value Normal AV Doppler AV Peak Velocity 113 cm/s AV Peak Gradient 5 mmHg AV Area (Cont Eq Anup) 2.4 cm2 AV DI (Anup) 0.75 AV Regurgitation 2D LVOT Area 3.2 cm2 Ventricles Name Value Normal LV Dimensions 2D/MM IVS Diastolic Thickness (2D) 1.1 cm 0.6-1.0 LVID Diastole (2D) 5.6 cm 4.2-5.8 LVIW Diastolic Thickness (2D) 1.1 cm 0.6-1.0 LVID Systole (2D) 5.3 cm 2.5-4.0 LVOT Diameter 2.0 cm LV Mass (2D Cubed) 245.86 g 88.00-224.00 LV Mass Index (2D Cubed) 94 g/m2 49-115 Relative Wall Thickness (2D) 0.39 <=0.42 LV Fractional Shortening/Ejection Fraction 2D/MM LV Fractional Shortening (2D) 5 % 25-43 LV EF (2D Teichholz) 11 % LV Diastolic Volume (4C MOD) 134 ml LV EF (4C MOD) 10 % LV Diastolic Volume (2C MOD) 189 ml LV EF (2C MOD) 22 % LV Diastolic Volume (BP MOD) 160 ml 62-150 LV Diastolic Volume Index (BP MOD) 61 ml/m2 34-74 LV Systolic Volume (BP MOD) 138 ml 21-61 LV Systolic Volume Index (BP MOD) 53 ml/m2 11-31 LV EF (BP MOD) 14 % 52-72 LV Diastolic Length (4C) 8.5 cm LV Systolic Length (4C) 8.5 cm LV Stroke Volume (4C MOD) 13 ml Atria Name Value Normal LA Dimensions LA Volume (4C A-L) 55 ml LA Volume (BP A-L) 51 ml RA Dimensions RA Systolic Major [place] Length (4C) 5.7 cm 2.1-2.7 RA Area (4C) 21.5 cm2 <=18.0 Report Signatures
[2025-08-31 04:21] LABS: Hematocrit 39.0 % (42.0-52.0); Hemoglobin 11.9 g/dL (14.0-18.0); Mean Corpuscular HGB Conc 30.5 g/dl (32-36); Mean Corpuscular Hemoglobin 30.4 pg (26-34); Mean Corpuscular Volume 99.5 fl (80-100); Platelet Count Result 142 k/mm3 (150-375); Red Blood Count 3.92 M/mm3 (4.6-6.20); White Blood Count 6.9 K/mm3 (4.5-10.0)
[2025-08-31 04:40] LABS: Anion Gap 10 mmol/L (4-12); Blood Urea Nitrogen 26 mg/dL (9-20); Calcium 8.3 mg/dL (8.4-10.2); Carbon Dioxide 20 mmol/L (22-30); Chloride 108 mmol/L (98-107); Estimated CRCL calculation 45 ml/min; Estimated Glomerular Filt Rate 33; Glucose 116 mg/dL (65-110); Magnesium 2.5 mg/dL (1.6-2.3); Potassium 4.0 mmol/L (3.4-5.0); Sodium 138 mmol/L (137-145)
[2025-08-31 05:23] LABS: Thyroid Stimulating Hormone Reflex 2.120 uIU/mL (0.465-4.68)
--- OUTSIDE RECORDS SUMMARY | 2025-08-31 07:52 | XMS_ITS | Encounter Summary ---
Author Organization [facility] Healthcare Address [address] [place] [address] Care Team Providers Care Engagement Quality Consultant Name Role Phone Jaya Dailey MD Primary Care Provider [phone] Abelardo Gastelum MD Unavailable [phone] Encounter Details Date Type Department Care Team (Late st Contact Info) Description 07/14/2023 Telephone [facility] Radiology [address] [place] [address] Rachael Rao RN Social History Tobacco Use [...] often do you attend chur ch or hoahaoism services? Never 07/18/2023 Do you belong to any clubs o r organizations such as anglican groups, unions, fraternal or athletic groups, or [...] in a nursing home (including now)? No 07/18/2023 Sex and Gender Information Value Date Recorded Sex Assigned at Not on file Legal Sex Male 3:19 AM PUBLIC SERVICE DIRECTOR Gender Identity Not on file Sexual Orientation Not on file documented as of this encounter Plan of Treatment Not on file documented as of this encounter Visit Diagnoses Not on filedocumented in this encounter Additional Health Concerns Infection Onset Date Last Indicated Resolved Time MRSA 02/14/2023 07/17/2023 01/13/2024 3:05 AM PUBLIC SERVICE DIRECTOR CRE 07/17/2023 07/17/2023 MDR gram neg/ESBL 07/17/2023 07/17/2023 documented as of this encounter Care Teams Engagement Quality Consultant Relationship Specialty Start Date End Date Jaya Dailey MD PCP - General Family Medicine 01/18/19 Abelardo Gastelum MD [address] [facility] DEPT [place] [address] Orthopedic Surgery 05/09/23 documented as of this encounter
--- OUTSIDE RECORDS SUMMARY | 2025-08-31 07:53 | XMS_ITS | Clinical Summary ---
Author Organization [facility] Care Team Providers Care Developmental Education Instructor Name Role Phone Unavailable Primary Care Provider Unavailabl e Social History Tobacco Use Types Packs/Day Years Used Date Smoking Tobacco: Never Assessed Sex and Gender Information Value Date Recorded Sex Assigned at Not on file Legal Sex Male 3:22 PM RN SURGERY ICU Gender Identity Not on file Sexual Orientation [...] Influenza Immunization (#1) 2025 SARS-COV-2 Immunization ( season) 2025 Respiratory Syncytial Virus (RSV) Immunization [...]
--- OUTSIDE RECORDS SUMMARY | 2025-08-31 07:54 | XMS_ITS | Clinical Summary ---
Author Organization [facility] Lisy Diaz Address [address] [place] [address] Care Team Providers Care Science Education Professor Name Role Phone Jaya Dailey MD Primary Care Provider [phone] Allergies No known active allergies Medications aspirin [...] on file Legal Sex Male 3:40 PM MARRIAGE COUNSELOR Gender Identity Not on file Sexual Orientation Not on file Last Filed Vital Signs Vital Sign Reading Time Taken Comments Blood Pressure 133/49 01/03/2023 2:03 PM MARRIAGE COUNSELOR Pulse 73 01/03/2023 2:34 PM MARRIAGE COUNSELOR Temperature 36.4 C (97.6 F) 01/03/2023 2:03 PM MARRIAGE COUNSELOR Respiratory Rate 10 01/03/2023 2:03 PM MARRIAGE COUNSELOR Oxygen Saturation 98% 01/03/2023 2:03 PM MARRIAGE COUNSELOR Inhaled Oxygen Concentration - - Weight 181.4 kg (400 lb) 01/03/2023 2:03 PM MARRIAGE COUNSELOR Height 176.8 cm (5' 9.6) 01/03/2023 2:03 PM MARRIAGE COUNSELOR Body Mass Index 58.06 01/03/2023 2:03 PM MARRIAGE COUNSELOR Plan of Treatment Health Maintenance Due Date [...] 2025 Insurance MEDICARE PART A AND B [facility] MEDICARE PART A AND B Care Teams Science Education Professor Relationship Specialty Start Date End Date Jaya Dailey MD [address] [place] [address] PCP - General Family Practice 01/03/23
--- OUTSIDE RECORDS SUMMARY | 2025-08-31 07:54 | XMS_ITS | Encounter Summary ---
Author Organization [facility] Address [address] [place] [address] Care Team Providers Care High Scaler Name Role Phone Lewis Chopra MD Primary Care Provider [phone] Encounter Details Date Type Department Care Team (Late st Contact Info) Description 03/16/2023 Telephone [facility] - Infectious Disease [address] [facility], [facility] [place] [address] Harrison Titus MD [facility] [place] [address] Social History Tobacco Use Types [...] and heating? Not hard at all 02/16/2023 [facility] [place] of Occupat ional Health - Occupational Stress [...] place to sleep or slept in a mcc (including now)? No 02/16/2023 Sex and Gender Information Value Date Recorded Sex Assigned at Not on file Legal Sex Male 7:47 PM ORIGINATION SPECIALIST Gender Identity Not on file Sexual [...] Titus Reason for call: [facility] his 04/05/2023SLU OP ANTIBIOTIC THERAPY appt rescheduled to 04/12/2023 because he will have NO transportation. Schedule conflict. The Rehab center is [facility], , contact is Amaya over scheduling and transportation. Give her a call to reschedule and with any questions. Thanks. Patient Call Back number: [phone] documented in this encounter Plan of Treatment Not on file documented as of this encounter Visit Diagnoses Not on filedocumented in this encounter Additional Health Concerns Infection Onset Date Last Indicated Resolved Time MRSA 02/16/2023 02/23/2023 documented as of this encounter Care Teams High Scaler Relationship Specialty Start Date End Date Lewis Chopra MD [address] [place] [address] PCP - General 02/17/23 documented as of this encounter
--- OUTSIDE RECORDS SUMMARY | 2025-08-31 07:54 | XMS_ITS | Clinical Summary ---
Author Organization [facility] Address [address] [place] [address] Care Team Providers Care Sales Ledger Clerk Name Role Phone Jaya Dailey MD Primary Care Provider [phone] Encounters Date Type Department Care Team Description 07/19/2025 Telephone [facility] Medical [facility] Neurology Speciality Clinic - [address] [place] [address] Garett Rubin MD Reschedule from [...] st Contact Info) Description 10/30/2025 10:40 AM VIDEO GAME CREATOR Office Visit [facility] Medical [facility] Multispecialty Care - [facility] [address] [facility], [address] [place] [id number] Garett Rubin MD [address] [place] [address] Health Maintenance Due Date Last Done Comments Colorectal Cancer Screening Colonoscopy (10 Years) 1957 Hepatitis C 1975 DTaP, Tdap and Td Vaccines ( 1 - Tdap) 1976 Pneumococcal Vaccine: 50+ Ye ars (1 of 1 - PCV) 2007 Zoster Vaccines (1 of 2) 2007 Annual Medicare Wellness Visit 2022 PHQ-2 (Physician [place]) 11/07/2024 COVID-19 Vaccine (1 - 2024-2 6 [...] patient's age to complete this topic Insurance [facility] [place] [address] UHC MEDICARE Care Teams Sales Ledger Clerk Relationship Specialty Start Date End Date Jaya Dailey MD [address] [address] PCP - General FAMILY PRACTICE 06/18/25
--- OUTSIDE RECORDS SUMMARY | 2025-08-31 07:55 | XMS_ITS | Clinical Summary ---
Author Organization [facility] Address [address] [place] [address] Phone Care Team Providers Care High School Business Teacher Name Role Phone Jaya Dailey MD Primary Care Provider [phone] Allergies No known active allergies Medications aspirin [...] Comments Blood Pressure 100/70 10/23/2020 11:23 AM TUFTING CREELER Pulse 72 10/23/2020 11:23 AM TUFTING CREELER Temperature 36.7 C (98 F) 10/23/2020 11:23 AM TUFTING CREELER Respiratory Rate - - Oxygen Saturation - - Inhaled Oxygen Concentration - - Weight 181 kg (400 lb) 10/23/2020 11:23 AM TUFTING CREELER Height 175.3 cm (5' 9) 10/23/2020 11:23 AM TUFTING CREELER Body Mass Index 59.07 10/23/2020 11:23 AM TUFTING CREELER Plan of Treatment Health Maintenance Due Date Last Done Comments Pneumococcal PPSV23/PCV13 65 + Years / Low and Medium Risk (1 of 2 - PCV) 2007 Influenza Vaccine (#1) 2025 Insurance [employer] Care Teams High School Business Teacher Relationship Specialty Start Date End Date Jaya Dailey MD [address] [place] [address] PCP - General Family Medicine 10/21/20
--- OUTSIDE RECORDS SUMMARY | 2025-08-31 07:56 | XMS_ITS | Clinical Summary ---
Author Organization [facility] [employer] Address [address] [place] [address] Care Team Providers Care Bee Farmer Name Role Phone Lewis Chopra MD Primary Care Provider [phone] Source Comments [email or web address],non-owned Affiliates and Associated Physician Practices is amultiple site organization consisting of ambulatory clinics and hospital sitesin [place], [place], [place] and [place]. This disclosure is being madepursuant to the Care Everywhere program and may not contain all information available regarding this patient. Last updated 18.[email or web address] Allergies No known active allergies Medications * [...] Active vitamin D, ergocalciferol, (Drisdol) 1.25 MG (46348 UT) capsuleIndicatio ns:Vitamin D Deficiency Take 1 (one) capsule by mouth every Tuesday & Reasons: Vitamin D Deficiency 90 capsule 05/04/20 23 Active Active Problems Problem Noted Date Diagnosed Date High anion gap metabolic acidosis 03/06/2023 Acute blood loss anemia 03/02/2023 Duodenal ulcer 03/02/2023 Diabetes insipidus - DIAMOND SIZER Deficiency 03/02/2023 Lung mass 03/02/2023 Sepsis due [...] and heating? Not hard at all 02/16/2023 [facility] [place] of Occupat ional Health - Occupational Stress [...] place to sleep or slept in a detention (including now)? No 02/16/2023 Sex and Gender Information Value Date Recorded Sex Assigned at Not on file Legal Sex Male 7:47 PM QUALITY ASSURANCE SUPERVISOR FINAL Gender Identity Not on file Sexual Orientation [...] 7 - 26 mg/dL 03/10/2023 5:51 AM [facility] Creatinine 1.84(H) 0.71 - 1.16 mg/dL 03/10/2023 5:51 AM [facility] Sodium 139 136 - 145 mmol/L 03/10/2023 5:51 AM [facility] Potassium 4.5 3.5 - 4.5 mmol/L 03/10/2023 5:51 AM [facility] Chloride 108(H) 98 - 107 mmol/L 03/10/2023 5:51 AM [facility] CO2 26 22 - 29 mmol/L 03/10/2023 5:51 AM [facility] Glucose 103 70 - 115 mg/dL 03/10/2023 5:51 AM [facility] Albumin 3.0(L) 3.4 - 5.0 g/dL 03/10/2023 5:51 AM [facility] Calcium 8.6 8.4 - 10.2 mg/dL 03/10/2023 5:51 AM [facility] Phosphorus 3.2 2.8 - 5.1 mg/dL 03/10/2023 5:51 AM [facility] Anion Gap 10 8 - 18 03/10/2023 5:51 AM CDT [facility] BUN/Creatinine Ratio 19 7 - 23 03/10/2023 5:51 AM CDT [facility] Osmolality Calculated 296 270 - 300 mOsm/kg 03/10/2023 5:51 AM CDT [facility] eGFR by CKD-EPI 40(L) >=90 mL/min/1.7 3 m2 03/10/2023 5:51 AM CDT [facility] Blood BLOOD SPECIMEN / Unknown Line Draw / Unknown 03/10/2023 5:11 AM CDT 03/10/2023 5:24 AM CDT Mehul Coronado MD LAB - CHEMISTRY ORDERAB LES Final Result Performing Organization Address City/[facility]/ZIP Co de Phone Number [address] [address], [place] [phone] * HEPATITIS C AB SCREEN RFLX NAAT QUANT (02/18/2023 3:20 AM CDT) Pathologist [facility] Hepatitis C Antibody Non-react abby Non-reac tive 02/18/2023 7:22 AM CDT [facility] Comment:Hepatitis C Antibody screen indicates no serologic [...] LAB - CHEMISTRY ORDERAB LES Final Result [address] [address], [place] [phone] * (ABNORMAL) PROTEIN CREATININE RATIO URINE RANDOM PNL (02/16/2023 7:38 AM CDT) Protein Urine 164 Not Established mg/dL 02/16/2023 8:03 AM CDT [facility] Creatinine Urine 30 Not Established mg/dL 02/16/2023 8:03 AM [facility] Protein/Creati nine Ratio Urine 5.47(H) <0.10 02/16/2023 8:03 AM T [facility] Urine URINE SPECIMEN OBTAINED BY CLEAN CATCH PROCEDURE / Unknown Collection / Unknown 02/16/2023 7:38 AM CDT 02/16/2023 7:41 AM CDT us Mehul Coronado MD LAB - URINE CHEMISTRY O RDERABLES Final Result Performing Organization Address City/[facility]/ZIP Co de Phone Number [facility] [address] [place] [address], [facility] [phone] * (ABNORMAL) HEMOGLOBIN A1C (02/16/2023 1:23 AM CDT) Hemoglobin A1c 9.6(H) <=5.6 % 02/16/2023 9:35 AM [facility] Estimated Average Glucose 229 mg/dL 02/16/2023 9:35 AM [facility] Comment: HbA1c Interpretation: Normal : < 5.7% Pre-diabetes: 5.7-6.4% Diabetes: Equal to or greater than 6.5% Test results diagnostic of diabetes should be repeated for confirmation. Treatment target values recommended by ADA and other clinical organizations should be used to evaluate metabolic control in patients. Reference: [place] Diabetes Association, Standards of Care in Diabetes [...] LAB - CHEMISTRY ORDERAB LES Final Result [facility] [address] [place] [address], [facility] [phone] from Last 3 Months or Most Recently Relevant to Health Maintenance Additional Health Concerns Infection Onset Date Last Indicated MRSA 02/16/2023 02/23/2023 Insurance MEDICARE MEDICARE Advance Directives * Full Code (Latest Code Status on File) Date Activated Date Inactivated Comments 02/16/2023 12:51 AM 03/10/2023 11:28 PM Care Teams Bee Farmer Relationship Specialty Start Date End Date Lewis Chopra MD [address] [place] [address] PCP - General 02/17/23
--- OUTSIDE RECORDS SUMMARY | 2025-08-31 07:56 | XMS_ITS | Clinical Summary ---
Author Organization [facility] Address [address] [place] [address] Care Team Providers Care Canvas Baster Name Role Phone Jaya Dailey MD Primary Care Provider [phone] Abelardo Gastelum MD Unavailable Allergies No known [...] 1 tablet (25 mcg total) by mouth parking meter collector before breakfast Given at 6 am 30 [...] 09/23/2023 Assessment & Plan (09/23/2023 4:10 PM MANAGER OF CASE): By hx suspect more gas/bloating Consider constipation [...] 08/01 Assessment & Plan (09/23/2023 4:09 PM MANAGER OF CASE): Wound care following Still wrapped No active [...] 08/01/2023 Assessment & Plan (09/23/2023 4:09 PM MANAGER OF CASE): Multifactorial Also obstructive Cont murillo Assessment & Plan (08/11/2023 8:25 PM CDT): Has catheter Staff to arrange urology fu for xchg Assessment & Plan (08/05/2023 4:24 PM CDT): Has murillo in place, hx of SAMANTA, unlikely to improve Assessment & Plan (08/01/2023 7:45 PM CDT): Cont spc Rt samanta Has 102 uro appt Encounter for examination for admission to [facility] 07/28/2023 Chronic atrial fibrillation 07/28/2023 Assessment [...] to obtain cardiac clearance but patients primary barber will not give d/t not seeing in [...] 04/28/2023 Assessment & Plan (11/16/2023 4:16 PM MANAGER OF CASE): Multifactorial related to chronic illness and cauda [...] PM CDT): Cr at baseline. Continue to [facility]. Assessment & Plan (04/28/2023 3:58 PM CDT): Cmp ordered as follow up Nonsustained ventricular tachycardia 04/26/2023 Assessment & Plan (04/28/2023 3:56 PM CDT): Monitor for arrhythmia Acquired hypothyroidism 04/26/2023 Assessment & Plan (04/28/2023 3:57 PM CDT): Tsh ordered Hosp tsh reviewed Cont synthroid Macrocytic anemia 03/25/2023 Permanent atrial fibrillation 03/25/2023 Assessment & Plan (11/16/2023 4:16 PM MANAGER OF CASE): Currently rate controlled. Continue metoprolol. Discussed with [...] 02/16/2023 Assessment & Plan (11/16/2023 4:16 PM MANAGER OF CASE): Currently compensated. Continue metolazone metoprolol. Assessment & [...] (07/04/2023 2:40 PM CDT): Was able to supplier quality engineering manager parallal bars with tx. Slow but consistent progress. Continue to [facility]. Assessment & Plan (06/27/2023 11:00 [...] (01/30/2019): Added automatically from request for surgery [id number] Diabetic polyneuropathy asso ciated with type 2 [...] lopressor Assessment & Plan (01/05/2018 11:41 AM MANAGER OF CASE): Controlled. Continue with metoprolol. Monitor blood pressure [...] lispro Assessment & Plan (01/05/2018 11:42 AM MANAGER OF CASE): Insulin pump being held for now. SSI [...] CDT): Brought this to the attention of process coordinator Halina who will ask for an [...] 03/25/2023 Assessment & Plan (01/05/2018 11:39 AM MANAGER OF CASE): Troponin peaked at 35.95. EKG as noted above. Cardiology has been consulted and pt is now s/p cardiac catheterization with possible plans to re-enter for further intervention. ASA, Brillinta, Bb, Sony, and Statin ordered. Continue with telemetry. Smoking addiction 01/05/2018 03/25/2023 Assessment & Plan (01/05/2018 11:42 AM MANAGER OF CASE): Counseled on cessation. Morbid obesity 01/05/2018 03/25/2023 Assessment & Plan (01/05/2018 11:44 AM MANAGER OF CASE): Pt reports a weight loss of 30+ [...] DTI left heel per Raquel nurse at [facility] they are treating . Pneumonia 02/2023 see [...] 07/28/2023 How often do you attend chur [email or web address] or sikhism services? Never 07/28/2023 Do you belong to any clubs o r organizations such as temple groups, unions, fraternal or athletic groups, or [...] place to sleep or slept in a skilled nursing (including now)? No 07/28/2023 Personal Safety Answer Date Recorded Have you ever been in or are you currently in a harmful physical or emotional relationship or is someone making you feel afraid or unsafe? Denies 01/29/2024 Sex and Gender Information Value Date Recorded Sex Assigned at Not on file Legal Sex Male 3:19 AM MANAGER OF CASE Gender Identity Not on file Sexual Orientation [...] Completed 02/14/2023 Medical Devices Implanted Type Area Callisthenics Instructor Device Identifier Shelf Expiration Date Model / Serial / Lot [employer] Zbigniew [id number] Synergy 2.5mm 24mm 144cm Radiopaque 1 Access Port Inflation Lumen - [id number] Implanted:Qty: 1 on 02/22/2019 by Brock Carr MD at [facility] Stent N/A: Heart [employer] Zbigniew 11/13/2020 [id number] / / [id number] [employer] Zbigniew [id number] Synergy 3mm 20mm 144cm Radiopaque 1 Access Port Inflation Lumen - [id number] Implanted:Qty: 1 on 02/22/2019 by Brock Carr MD at [facility] Stent N/A: Heart [employer] Zbigniew 11/08/2020 [id number] / / [id number] Insulin Pump Abdomen System Coronary Stent Synergy Pebax Everolimus Eluting [place] Chromium Plga L16 Mm L144 Cm Od2.5 Mm Radiopaque 1 Access Port Inflation Lumen Accepts .014 In Guidewire - [id number] Implanted:Qty: 1 on 01/04/2018 by Ofelia Ruiz MD at [facility] [employer]iew 09/19/2018 [id number] / / [id number] System Coronary Stent Synergy Pebax Everolimus Eluting [place] Chromium Plga L20 Mm L144 Cm Od2.5 Mm Radiopaque 1 Access Port Inflation Lumen Accepts .014 In Guidewire - [id number] Implanted:Qty: 1 on 01/04/2018 by Ofelia Ruiz MD at [facility] [employer] Zbigniew 10/18/2018 [id number] / / [id number] Daig Zbigniew/[employer] [id number] Angio-Seal Vip Bondek-Plus 6fr .035in 70cm Hemostatic Latex Free - [id number] Implanted:Qty: 1 on 02/22/2019 by Brock Carr MD at [facility] Right: Groin Daig Zbigniew/[employer] 10/06/2019 [id number] / / [id number] Procedures Procedure Name Priority Date/Time Associated Diagnosis Comments POCT LIPID PANEL Routine 08/08/2024 10:5 4 AM CDT Lipid screening EGFR Routine 07/29/2023 7:15 AM CDT HEMOGLOBIN A1C Routine 05/02/2023 8:[address] ABDOMEN PELVIS WO CONTRAST ED 02/14/2023 10:33 AM CDT ALBUMIN CREATININE RATIO, URINE Routine 11/06/2019 7:26 AM MANAGER OF CASE from Last 3 Months or Most Recently [...] LAB BLOOD ORDERABLES Stephanie susie Result [facility] [address] Department [place] [address] * (ABNORMAL) Hemoglobin A1c (05/02/2023 8:35 AM CDT) Hgb A1C 5.7(H) 4.0 - 5.6 % [facility] Comment:Testing performed by : [address] [address] Estimated Average Glucose 117 mg/dL [facility] Comment: The ADA recommends reporting an estimated Average Glucose (eAG) with all Hemoglobin A1c results using the equation derived from a study of 507 normal and diabetic adults. Minority populations were underrepresented and children were not included. (Diabetes Care 31:6595-6482, 2008). The eAG is not equivalent to a fasting glucose. Testing performed by: [address] [address] Blood 05/02/2023 8:35 AM CDT 05/02/2023 9:24 AM CDT us Bennie Oliveira MD LAB BLOOD ORDERABLES Final R esult [facility] [address] Department [place] [address] * CT Abdomen Pelvis WO Contrast (02/14/2023 [...] Harrison Islas M.D. KR T: Report ID: [id number] Reading Location: [id number] Procedure Note Harrison Islas MD - 02/14/2023 [...] Harrison Islas M.D. KR T: Report ID: [id number] Reading Location: [place] [address] [address]ico Roy DO IMG CT PROCEDURES Final Res ult * (ABNORMAL) Albumin Creatinine Ratio, Urine (11/06/2019 7:26 AM MANAGER OF CASE) Creatinine, ur 57 20 - 320 mg/dL [facility] Microalbumin, ur 6.4 See Note: mg/dL [facility] Comment: Reference Range: Reference Range Not established Microalbumin/creat ratio 112(H) <30 mcg/mg creat [facility] [place] Comment: The ADA defines abnormalities in albumin excretion as follows: Category Result (mcg/mg creatinine) Normal <30 Microalbuminuria 30-299 Clinical albuminuria > OR = 300 The ADA recommends that at least two of three specimens collected within a 3-6 month period be abnormal before considering a patient to be within a diagnostic category. 11/06/2019 7:2 6 AM MANAGER OF CASE 11/06/2019 7:29 AM MANAGER OF CASE Narrative Resulting Agency Comment Performing Organization Information: Site ID: [place] Name: [facility] Address: [address] [place] [address] Director: Kali Sheppard D.O., MPH us Anu [facility] LAB URINE ORDERABLES Fi nal Result JESUS MANUEL [facility] [place] from Last 3 Months or Most Recently Relevant to Health Maintenance Additional Health Concerns Infection Onset Date Last Indicated CRE 07/17/2023 07/17/2023 MDR gram neg/ESBL 07/17/2023 07/17/2023 Insurance [employer] [place] [employer] [place] UHC MEDICARE ADVANTAGE MEDICARE [facility] Advance Directives For more information, please contact: [phone] Documents on File Type Date Recorded Patient Relocation Counselor Expl anation ADVANCE DIRECTIVE 05/02/2023 11:29 AM [...] 8:26 AM 07/13/2023 4:49 AM Care Teams Canvas Baster Relationship Specialty Start Date End Date Jaya Dailey MD PCP - General Family Medicine 01/18/19 Abelardo Gastelum MD [address] [facility] [place] [address] Orthopedic Surgery 05/09/23
[2025-08-31] MEDS: ACETAMINOPHEN 325 MG TABLET 650 MG PO (08:53)
[2025-08-31] MEDS: METOPROLOL SUCCINATE EXT REL 25 MG TABCR PO (08:57)
[2025-08-31] MEDS: APIXABAN 5 MG TABLET PO ×2 (08:58→20:42)
[2025-08-31] MEDS: FUROSEMIDE INJ 40 MG/4 ML VIAL IV PUSH ×2 (09:41→16:09)
--- NOTE | 2025-08-31 10:08 | PM.IMPN ---
Progress Note: A&P Assessment and Plan (1) CHF (congestive heart failure): Qualifiers: Heart failure chronicity: acute on chronic Heart failure type: unspecified Qualified Code(s): I50.9 - Heart failure, unspecified Code(s): I50.9 - Heart failure, unspecified Status: Acute Assessment and Plan: The patient presents with worsening scrotal edema with bilateral LE edema. BNP 9280. EKG showing AFlutter with borderline ST-T wave changes in the anterolateral and high lateral leads CXR showing CMG with pulmonary edema He was given Lasix IV and metoprolol IV once. He was admitted and started on Lasix 40mg IV BID Echo in 2019 showing EF 60-65% with Grade I diastolic dysfunction and no significant valve disease Echo here showing severe LV enlargement with severely reduced systolic fxn with EF 20%, indeterminate diastolic fxn, moderate RVE with hypokinesis, biatrial dilation L>R and moderate MR. Patient with acute systolic CHF Continue IV Lasix. Continue Metoprolol XL. Will add GDMT as tolerated. Cardiology consult. Monitor strict I&O's and daily weights. (2) Paroxysmal atrial fibrillation with RVR: Code(s): I48.0 - Paroxysmal atrial fibrillation Status: Acute Assessment and Plan: In the ER is found to be in AFib RVR. He received metoprolol IV with improvement in HR. He was started on oral metoprolol succinate (in hopes of once a day dosing will help with compliance). TSH normal. [id number]. HR better controlled. Continue Eliquis. Continue metoprolol XL. Monitor on tele (3) Scrotal edema: Code(s): N50.89 - Other specified disorders of the male genital organs Status: Acute Assessment and Plan: Related to CHF. As above (4) Stage 3b chronic kidney disease: Code(s): N18.32 - Chronic kidney disease, stage 3b Status: Acute Assessment and Plan: Patient has CKD with baseline Cr 1.9-2 range. Cr 1.96 on admission. Monitor electrolytes, UOP and renal function closely given active diuresis. Avoid nephrotoxic medications. (5) Hypothyroid: Qualifiers: Hypothyroidism type: unspecified Qualified Code(s): E03.9 - Hypothyroidism, unspecified Code(s): E03.9 - Hypothyroidism, unspecified Status: Acute Assessment and Plan: Patient has a history of hypothyroidism according to chart review. He also has not refilled levothyroxine since February. TSH normal here. (6) Essential (primary) hypertension: Code(s): I10 - Essential (primary) hypertension Status: Chronic Assessment and Plan: Patient's blood pressure was reviewed on 08/31 Blood pressure remains well controlled. Will continue to monitor (7) Suprapubic catheter: Code(s): Z93.59 - Other cystostomy status Status: Acute Assessment and Plan: Stable. Routine SP care. (8) Abnormal urinalysis: Code(s): R82.90 - Unspecified abnormal findings in urine Status: Acute Assessment and Plan: Patient has an abnormal appearing urinalysis but he is not having any fever or leukocytosis to suggest infection and he had a negative urine culture with subsequent treatment with 3 additional antibiotics despite the negative urinary tract infection. Levaquin discontinued that was ordered as outpatient. Follow up on urine culture (9) Pressure ulcer of left heel: Qualifiers: Pressure injury stage: unspecified pressure injury stage Qualified Code(s): L89.629 - Pressure ulcer of left heel, unspecified stage Code(s): L89.629 - Pressure ulcer of left heel, unspecified stage Status: Acute Assessment and Plan: Lesions appears dry and without evidence of infection. Leave open to air but cover with loose dressing to protect from trauma Plan PERLITA - Auto titrating CPAP/BiPAP has been ordered. The patient states that he will need a prescription for new mask and tubing for his CPAP on discharge. DVT Prophylaxis - Eliquis Code status - full Subjective Date/time seen: 08/31/25 10:08 Interval history: 70yo male with incomplete paraplegia due to prior spinal surgery, atonic bladder with suprapubic catheter, insulin-dependent diabetes mellitus, CAD, HTN, PERLITA, pAFib on chronic anticoagulation and diastolic heart failure who presented to the ER from home due to worsening scrotal edema Slept off and on last night. No PND or orthopnea. Lower abd pain better. Nml BMs. Normal UOP and urine clear prior to admission. He can take a few steps and trasnfer. Exam Narrative: AF 98.6 121/82 109 16 100% ra Gen - NARD Chest - lungs clear anteriorly and in the flanks. CV - RRR S1/S2. Tele showing sinus with occasional PVCs. Abd - Soft, obese, NT, SP site with chronic appearing erythema with [place] secured draining clear yellow urine. - non-tense, mild scrotal edema Ext - 1+ bilateral LE edme Neuro - Alert and appropriate. Bilateral LE paresis Psych - Nml mood and affect Skin - Warm and dry. dime sized shallow dried eschar left lateral foot without surrounding erythema Objective Data Vital Signs Vital Signs: Vital Signs - 24 hr 08/30/25 18:27 08/30/25 21:42 08/30/25 22:01 Temperature 97.1 F L Pulse Rate 120 H 122 H 99 Respiratory Rate 18 14 Blood Pressure 135/95 H 115/101 H Pulse Oximetry 99 99 Oxygen Delivery Room Air 08/30/25 22:30 08/30/25 22:39 08/30/25 22:51 Temperature Pulse Rate 102 H 100 106 H Respiratory Rate 20 20 Blood Pressure 127/88 124/72 Pulse Oximetry 98 100 Oxygen Delivery 08/30/25 23:58 08/31/25 00:00 08/31/25 00:00 Temperature 98.4 F Pulse Rate 107 H 103 H Respiratory Rate 20 Blood Pressure 132/100 H Pulse Oximetry 100 Oxygen Delivery Room Air 08/31/25 01:59 08/31/25 03:41 08/31/25 03:45 Temperature 98.3 F Pulse Rate 104 H 106 H Respiratory Rate 20 Blood Pressure 108/83 Pulse Oximetry 98 Oxygen Delivery Room Air 08/31/25 04:00 08/31/25 06:00 08/31/25 06:51 Temperature Pulse Rate 107 H 102 H Respiratory Rate Blood Pressure Pulse Oximetry 98 Oxygen Delivery Room Air 08/31/25 06:53 08/31/25 07:46 08/31/25 08:00 Temperature 98.6 F Pulse Rate 105 H 106 H Respiratory Rate 16 Blood Pressure 121/82 Pulse Oximetry 100 Oxygen Delivery Autopap 08/31/25 10:00 Temperature Pulse Rate 109 H Respiratory Rate Blood Pressure Pulse Oximetry Oxygen Delivery Intake/Output Intake/Output: Intake & Output 08/28/25 08/29/25 08/30/25 08/31/25 23:59 23:59 23:59 23:59 Intake Total 720 Output Total 1000 1350 Balance -1000 -630 Meds/Results Medications: Active Medications Generic Name Dose Route Start Last Admin Trade Name Freq PRN Reason Stop Dose Admin Acetaminophen 650 mg 08/30/25 22:44 08/31/25 08:53 Acetaminophen 325 Mg Tablet PO 650 mg Q4H PRN Administration Mild Pain (1-3) or Fever Apixaban 5 mg 08/31/25 09:00 08/31/25 08:58 Apixaban 5 Mg Tablet PO 5 mg Q12HR ADALBERTO Administration Calcium Carbonate 200 mg 08/30/25 22:44 Calcium Carbonate (Tums) 500 Mg (200 Mg Elemental) PO Q6H PRN Indigestion Docusate Sodium 100 mg 08/30/25 22:44 Docusate Sodium 100 Mg Capsule PO Q12H PRN Constipation Furosemide 40 mg 08/31/25 09:00 08/31/25 09:41 Furosemide Inj 40 Mg/4 Ml Vial IV PUSH 40 mg BID ADALBERTO Administration Metoprolol Succinate 25 mg 08/31/25 09:00 08/31/25 08:57 Metoprolol Succinate Ext Rel 25 Mg Tabcr PO 25 mg QAM ADALBERTO Administration Perflutren Lipid Microsphere 0 ml 08/30/25 22:27 Perflutren Lipid Microspheres 1.5 Ml Vial Diluted To 10 Ml Total Volume IV PUSH 09/02/25 22:27 ONCE PRN adequate visualization Protocol Radiology Results: ITS Impressions Chest X-Ray 08/30/25 20:03 IMPRESSION: Cardiomegaly with pulmonary edema suggestive of congestive heart failure. Labs Labs: Laboratory Results - last 24 hr 08/30/25 08/30/25 08/31/25 20:02 21:43 03:55 WBC 7.4 6.9 RBC 4.53 L 3.92 L Hgb 13.8 L 11.9 L Hct 44.5 39.0 L MCV 98.2 99.5 MCH 30.5 30.4 MCHC 31.0 L 30.5 L RDW 14.3 14.1 Plt Count 161 142 L MPV 9.4 9.6 Immature Gran % (Auto) 0.4 Neut % (Auto) 74.1 H Lymph % (Auto) 15.9 L [place] % (Auto) 6.7 Eos % (Auto) 2.2 Baso % (Auto) 0.7 Lymph # (Auto) 1.18 [place] # (Auto) 0.5 Eos # (Auto) 0.2 Baso # (Auto) 0.1 Abs Immat Gran (auto) 0.03 Absolute Neuts (auto) 5.5 Absolute Nucleated RBC 0.000 Nucleated RBC % 0.0 Sodium 140 138 Potassium 4.3 4.0 Chloride 107 108 H Carbon Dioxide 24 20 L Anion Gap 9 10 BUN 26 H 26 H Creatinine 1.96 H 2.03 H Estim Creat Clear Calc 44 45 Estimated GFR 34 L 33 L Glucose 126 H 116 H Calcium 8.4 8.3 L Phosphorus 3.5 Magnesium 2.5 H Total Bilirubin 1.2 AST 26 ALT 13 Alkaline Phosphatase 97 NT-Pro-B Natriuret Pep 9280 H Total Protein 8.5 H Albumin 4.3 TSH (Reflex) 2.120 Urine Color Yellow Urine Appearance Clear Urine pH 5.5 Ur Specific [place] 1.007 Urine Protein Trace Urine Glucose (UA) Negative Urine Ketones Negative Ur Blood (Man) 1+ H Urine Nitrate Negative Urine Bilirubin Negative Urine Urobilinogen 0.2 Leukocyte Esterase Rfl 2+ H Urine RBC 11-20 H Urine WBC 11-20 H Ur Squamous Epith Cells None seen Urine Bacteria Rare Urine Casts 0-2
[2025-08-31] MEDS: EUCERIN CREAM 120 GM JAR 1 APPLIC TOPICAL (10:35)
[2025-08-31] MEDS: PERFLUTREN LIPID MICROSPHERES 1.5 ML VIAL DILUTED TO 10 ML TOTAL VOLUME IV PUSH (12:57)
--- NOTE | 2025-08-31 12:57 | IVDEFINITY ---
Prior to administration of IV Definity the patient was educated on the risks and benefits of the imaging enhancing agent including potential adverse side effects. The patient verbalized understanding. Allergies were verified. No exclusion criteria were identified and at least one of the following inclusion criteria were met: 1) physician request, 2) patient technically difficult to image (per the [place] [employer] Echocardi[employer] guidelines of two or more segments not discernable within the apical view), or 3) questionable left ventricular function. ?
--- NOTE | 2025-08-31 15:07 | PC.NURSE ---
On 08/31/25, the student, [ Swetha Boyce ], provided care and completed [facility] documentation on this patient. I have reviewed the student's documentation and agree with the findings.
[2025-09-01] VITALS (18 sets, daily range): BP systolic 107–121; BP diastolic 69–88; PULSE 91–104; RESP 16–21; TEMP 36.1–37.1; O2SAT 92–100
[2025-09-01] MEDS: ARTIFICIAL TEARS OPHTH SOLN 15 ML BOTTLE 1 DROP EACH EYE (03:54)
[2025-09-01 04:07] LABS: Hematocrit 40.2 % (42.0-52.0); Hemoglobin 12.8 g/dL (14.0-18.0); Immature Granulocyte Percent A 0.3 % (0-0.5); Immature Platelet Fraction Pct 1.7 % (0.9-11.2); Lymphocytes Absolute Auto 2.18 K/mm3 (0.9-3.2); Mean Corpuscular HGB Conc 31.8 g/dl (32-36); Mean Corpuscular Hemoglobin 30.5 pg (26-34); Mean Corpuscular Volume 95.9 fl (80-100); Nucleated Red Blood Cells Absolute Auto 0.000 K/mm3 (0.0-0.012); Nucleated Red Blood Cells Perc 0.0 % (0.0-0.2); Platelet Count Result 150 k/mm3 (150-375); Red Blood Count 4.19 M/mm3 (4.6-6.20); White Blood Count 6.6 K/mm3 (4.5-10.0)
[2025-09-01 04:16] LABS: Albumin Level 3.4 g/dL (3.5-5.1); Anion Gap 6 mmol/L (4-12); Blood Urea Nitrogen 26 mg/dL (9-20); Calcium 8.5 mg/dL (8.4-10.2); Carbon Dioxide 23 mmol/L (22-30); Chloride 107 mmol/L (98-107); Estimated CRCL calculation 41 ml/min; Estimated Glomerular Filt Rate 29; Glucose 108 mg/dL (65-110); Magnesium 2.3 mg/dL (1.6-2.3); Potassium 4.0 mmol/L (3.4-5.0); Sodium 136 mmol/L (137-145)
[2025-09-01] MEDS: FUROSEMIDE INJ 40 MG/4 ML VIAL IV PUSH (08:47)
[2025-09-01] MEDS: METOPROLOL SUCCINATE EXT REL 25 MG TABCR PO (08:47)
[2025-09-01] MEDS: APIXABAN 5 MG TABLET PO ×2 (08:47→20:41)
[2025-09-01] MEDS: EUCERIN CREAM 120 GM JAR 1 APPLIC TOPICAL (08:47)
--- NOTE | 2025-09-01 11:04 | PM.CNCAR ---
Assessment and Plan Assessment and plan (1) Congestive heart failure: Qualifiers: Heart failure type: unspecified Heart failure chronicity: chronic Qualified Code(s): I50.9 - Heart failure, unspecified Code(s): I50.9 - Heart failure, unspecified Status: Chronic (2) Paroxysmal atrial fibrillation with RVR: Code(s): I48.0 - Paroxysmal atrial fibrillation Status: Acute (3) CAD (coronary artery disease): Code(s): I25.10 - Atherosclerotic heart disease of [place] coronary artery without angina pectoris Status: Chronic Plan This is a 70-year-old man presenting with decompensated heart failure. He has a history of ischemic heart disease, previous RI and interventional revascularization of the RPDA as well as of the OM circumflex. No recent ischemic symptoms. He also has chronic AFib/flutter and presumably has had uncontrolled heart rate for 5 or 6 months because of self discontinuance of metoprolol because of depression. He has been placed back on a modest dose of metoprolol succinate his heart rate is reasonable at this time. It is a serious concern that his left ventricular systolic function is now very poor. The most likely scenario is that this represents a tachycardia mediated cardiomyopathy. Metoprolol succinate will be continued I am going to add Entresto to his regimen. He does have chronic kidney disease but looking at his chart this appears to be stable. I will also resume his aspirin and rosuvastatin for his chronic coronary disease. Depending on his clinical course he may or may not require follow-up evaluation of his coronaries. Obviously the 1st order of business is to initiate guideline directed medical therapy and assess his progress and hope to a restore him to a state of euvolemia. Obviously his personal and family situation that has led to his depression is very sad indeed Hong Vivas MD [facility] History of Present Illness History of Present Illness Consult date/time: 09/01/25 11:04 Reason For Visit: CHF exac w/ afib w/rvr Narrative: This is a very pleasant but unfortunate 70-year-old man that I am seeing at the request of the hospitalist because of congestive heart failure. He is unknown to me prior to this consultation but has been followed by my partner, Dr. Carr in the office. He was admitted to the hospital yesterday because of weight gain abdominal girth increase and scrotal edema. He has been started on some IV furosemide for assistance with volume overload. He had an echocardiogram done which I interpreted yesterday is showing a relatively severe four-chamber dilated cardiomyopathy with poor left and right ventricular systolic function. In this setting he is being seen in consultation. At this time other than his abdominal girth and scrotal edema he has no other complaints. When the patient told me that he has a history of coronary disease as well as atrial fibrillation/atrial flutter I reviewed his office record. He has a history of coronary disease dating back to January of 2018 when he presented to [facility] with acute inferior ST-elevation RI. He underwent emergency PCI with a 2.5 x 20 and 2.5 x 16 mm drug-eluting stent to the RPDA. He also was found to have significant stenosis in the LAD and circumflex at that time. This was managed medically. In 2018 he underwent staged intervention with angioplasty and stenting of the obtuse marginal with a 2.5 x 24 and a 3 x 20 mm drug-eluting stent in overlapping fashion. The LAD disease was found to be not flow-limiting by IFR. During this period of time he was in atrial fibrillation and rate control and anticoagulation with apixaban was recommended. His last appointment with my partner in the office was in August of 2024 which time he was stable cardiac bro. Unfortunately he shared a story of having had lumbar spine surgery in December 2022 after which he has been unable to walk, wheelchair-bound and partially paraplegic as a consequence of the surgery. Because of this as well as his becoming ill and having to be placed in a chcf and 1 of his daughters dying he became very depressed and stopped taking his metoprolol about 5 her 6 months ago. He continue has continued however to take his anticoagulant. According to the most recent office notes from last year as I mentioned above he was taking at that time metolazone, aspirin as well as rosuvastatin he has not been taking any of those medications either. His record in our office does have an echocardiogram from 2022 which demonstrated preserved right and left ventricular systolic function. He is currently back on metoprolol succinate following discharge he is in AF with a heart rate in the 90s to low 100s. Review of Systems Constitutional: Constitutional: Reports lethargy Eyes: Eyes: Reports no additional eye complaints ENT: Reports system reviewed and no additional complaints, except as documented Cardiovascular: Cardiovascular: Reports as per HPI Respiratory: Respiratory: Reports dyspnea on exertion Gastrointestinal: Gastrointestinal: Reports no additional gastrointestinal complaints Musculoskeletal: Musculoskeletal: Reports as per HPI Integumentary/Breasts: Skin/Breast: Reports system reviewed and no additional complaints, except as docu Neurologic: Reports as per HPI Comments: Chronic partial paraplegia Psychiatric: Psychiatric: Reports as per HPI and Reports depression [facility] Past Medical History Medical History (Updated 08/31/25 @ 05:39 by Radha Rosario DO) Atonic bladder 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 Iron deficiency Spinal cord tumor Stage 3b chronic kidney disease Hypothyroid Vitamin D deficiency, unspecified Atrial flutter Resistance to multiple antimicrobial drugs In the urine Diabetes mellitus with chronic kidney disease Type 2 diabetes mellitus with unspecified diabetic retinopathy with macular edema BMI 45.0-49.9, adult Insulin dependent type 2 diabetes mellitus Morbid (severe) obesity due to excess calories CAD (coronary artery disease) Hyperlipidemia Microhematuria Congestive heart failure Echocardiogram 2019 demonstrated normal ejection fraction with grade 1 diastolic dysfunction Umbilical hernia Depression with anxiety Essential (primary) hypertension Insomnia PERLITA on CPAP CPAP of 19 Polyneuropathy, unspecified Pure hypercholesterolemia Surgical History Surgical History (Updated 08/31/25 @ 05:16 by Radha Rosario DO) Chronic suprapubic catheter (~2023) Status post medial meniscus repair of left knee H/O skin graft left ankle History of removal of pigmented skin lesion eyelids H/O heart artery stent 2 in 2017 and 2 in 2018. History of left shoulder replacement (~2019) S/P tonsillectomy and adenoidectomy Family History Family History Father Family history of malignant neoplasm Leukemia Cerebrovascular accident Diabetes mellitus Exposure to uranium Mother Kidney failure Kidney disease Sibling Acute myocardial infarction Cardiac defibrillator in place Sibling Alcohol abuse Lung cancer Other No problems noted. Other No problems noted. Other Family history of arthritis Family history of coronary artery disease Family history of elevated blood lipids Family history of glaucoma Family history of hypercholesterolemia Family history of obesity Hypertension Social History Social History (Updated 08/31/25 @ 05:25 by Radha Rosario DO) Social History: He lives in his own home. He utilizes a wheelchair for mobility. He can pivot to transfer but for the most part cannot walk. His biological daughter of sepsis and was sounds like Saqib's gangrene. His son is still living. But is surrogate decision maker is his daughter's best friend which she has claimed as his ?unofficial daughter?. His Honorary daughter her and her son live with the patient and help provide his daily cares. He still smokes 3 thin cigars a day. He used to smoke significantly heavier amount and quit smoking for many years before restarting in 2022. 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 He drinks 1 alcoholic beverage about once a month. He intermittently uses marijuana. Surrogate medical decision maker: Jennifer Galarza (Honorary daughter) Code status: Full code (however he would not want long-term ventilation, tracheostomy or PEG tube) Smoking packs per day: 1 Smoking cigarettes per day: 20.0 Years smoked: 35 Smoking pack-years: 35.00 Smoking status: Current every day smoker Tobacco type: cigars Second hand tobacco smoke exposure: Yes Alcohol intake: current Alcohol use details: One drink per month Substance use: current Substance use type: marijuana Do You Feel Safe in your Home?: Yes Lack of Transportation: No Lack of Food: Never True Current Housing: I Have Housing Concerned About Future Housing: No Difficulty Paying Gas/Electric Bills: No Difficulty Paying for Meds: No Currently Unemployed: No Education: High School Diploma/GED Difficulty w/ Childcare or Family Care: No Living arrangements: with family Occupation/Education: retired 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 Gender identity (if verbalized by the patient): Male Spiritual care concerns: No Meds Home Medications and Allergies Home Medications ?Medication ?Instructions ?Recorded ?Confirmed ?Type blood sugar diagnostic (ProdAros Pharmay No #[id number] ea 06/14/24 08/31/25 Rx Coding strips) apixaban 5 mg tablet (Eliquis) 5 mg PO BID #180 tabs 02/04/25 08/30/25 Rx levofloxacin 250 mg tablet 250 mg PO DAILY 10 days #10 tabs 08/29/25 08/30/25 Rx Allergies Allergy/AdvReac Type Severity Reaction Status Date / Time atorvastatin AdvReac Intermediate myalgia Verified 08/30/25 23:26 Vital Signs Vital Signs - 24 hr 08/31/25 11:27 08/31/25 12:00 08/31/25 13:40 Temperature 36.6 C Pulse Rate 99 99 100 Respiratory Rate 16 Blood Pressure 110/73 Pulse Oximetry 97 Oxygen Delivery 08/31/25 14:00 08/31/25 16:00 08/31/25 16:10 Temperature 36.4 C L Pulse Rate 103 H 102 H 99 Respiratory Rate 16 Blood Pressure 110/72 Pulse Oximetry 98 Oxygen Delivery 08/31/25 18:00 08/31/25 19:44 08/31/25 19:55 Temperature 36.4 C L Pulse Rate 101 H 110 H Respiratory Rate 16 Blood Pressure 112/77 Pulse Oximetry 100 Oxygen Delivery Room Air 08/31/25 20:00 08/31/25 22:00 08/31/25 23:37 Temperature 36.5 C Pulse Rate 97 94 94 Respiratory Rate 18 Blood Pressure 119/86 Pulse Oximetry 100 Oxygen Delivery 08/31/25 23:56 09/01/25 00:00 09/01/25 00:00 Temperature Pulse Rate 91 95 Respiratory Rate 22 H Blood Pressure Pulse Oximetry Oxygen Delivery Autopap Room Air 09/01/25 02:00 09/01/25 02:12 09/01/25 04:00 Temperature Pulse Rate 94 95 97 Respiratory Rate 21 H Blood Pressure Pulse Oximetry Oxygen Delivery Autopap 09/01/25 04:00 09/01/25 04:00 09/01/25 06:00 Temperature 36.7 C Pulse Rate 102 H 95 Respiratory Rate 16 Blood Pressure 111/88 Pulse Oximetry 100 Oxygen Delivery Room Air 09/01/25 07:59 09/01/25 08:00 09/01/25 08:47 Temperature 36.6 C Pulse Rate 98 98 92 Respiratory Rate 18 Blood Pressure 121/82 Pulse Oximetry 98 Oxygen Delivery 09/01/25 10:00 Temperature Pulse Rate 93 Respiratory Rate Blood Pressure Pulse Oximetry Oxygen Delivery Exam Const: General: comfortable and no acute distress Other: Very pleasant morbidly obese man resting in bed head of the bed elevated to about 30? HENMT: Mouth: Yes moist mucous membranes Eyes: Sclera: sclerae normal Neck: Neck: supple Other: But body habitus precludes comment on JVD Resp: Effort & Inspection: normal respiratory effort Auscultation: clear to auscultation bilaterally Other: Breath sounds are distant but largely clear Cardio: Rate: regular rate Rhythm: abnormal rhythm irregularly irregular GI: GI Palp: Yes Soft to palpation Auscultation: normal bowel sounds Skin: General skin exam: normal color Neuro: Other: Alert and oriented x3 Extrem: Other: Mild lower extremity edema, significant scrotal edema Results Labs and Meds 09/01/25 03:54 09/01/25 03:54 Lab results: CBC 09/01/25 Range/Units 03:54 WBC 6.6 (4.5-10.0) K/mm3 RBC 4.19 L (4.6-6.20) M/mm3 Hgb 12.8 L (14.0-18.0) g/dL Hct 40.2 L (42.0-52.0) % Plt Count 150 (150-375) k/mm3 Lymph # (Auto) 2.18 (0.9-3.2) K/mm3 [place] # (Auto) 0.6 (0.1-0.6) K/mm3 Eos # (Auto) 0.3 (0-0.3) K/mm3 Baso # (Auto) 0.1 (0.0-0.1) K/mm3 Comprehensive Metabolic Panel 09/01/25 Range/Units 03:54 Sodium 136 L (137-145) mmol/L Potassium 4.0 (3.4-5.0) mmol/L Chloride 107 (98-107) mmol/L Carbon Dioxide 23 (22-30) mmol/L BUN 26 H (9-20) mg/dL Creatinine 2.25 H (0.7-1.3) mg/dL Glucose 108 (65-110) mg/dL Calcium 8.5 (8.4-10.2) mg/dL Albumin 3.4 L (3.5-5.1) g/dL Intake and Output 08/31/25 09/01/25 09/01/25 23:59 07:59 15:59 Intake Total 640 150 240 Output Total 2650 850 Balance -2009 240 Intake: Oral 640 150 240 Output: Catheter Urine 2650 850 Urethral Catheter 2650 850 Patient Weight 09/01/25 23:59 Weight 145.5 kg
[2025-09-01] MEDS: ROSUVASTATIN 20 MG TABLET PO (11:44)
[2025-09-01] MEDS: ASPIRIN 81 MG ENTERIC TABLET PO (11:44)
[2025-09-01] MEDS: SACUBITRIL/VALSARTAN 24-26 MG TABLET 1 TAB PO ×2 (11:44→20:41)
[2025-09-01] MEDS: BENZOCAINE/MENTHOL (*BKC) 18 EA LOZENGE 1 LOZENGE PO ×3 (11:54→23:40)
--- NOTE | 2025-09-01 14:18 | P.PNIM_ITS ---
Progress Note: A&P Assessment and Plan (1) CHF (congestive heart failure): Qualifiers: Heart failure chronicity: acute on chronic Heart failure type: unspecified Qualified Code(s): I50.9 - Heart failure, unspecified Code(s): I50.9 - Heart failure, unspecified Status: Acute Assessment and Plan: The patient presents with worsening scrotal edema with bilateral LE edema. BNP 9280. EKG showing AFlutter with borderline ST-T wave changes in the anterolateral and high lateral leads CXR showing CMG with pulmonary edema He was given Lasix IV and metoprolol IV once. He was admitted and started on Lasix 40mg IV BID Echo in 2019 showing EF 60-65% with Grade I diastolic dysfunction and no significant valve disease Echo here showing severe LV enlargement with severely reduced systolic fxn with EF 20%, indeterminate diastolic fxn, moderate RVE with hypokinesis, biatrial dil ation L>R and moderate MR. Patient with acute systolic CHF and possibly Rt sided heart failure Continue IV Lasix but decrease the dose given the higher Cr. Continue Metoprolol XL. Will add GDMT as tolerated. Cardiology consulted and appreciate their input. Monitor strict I&O's and daily weights. (2) Paroxysmal atrial fibrillation with RVR: Code(s): I48.0 - Paroxysmal atrial fibrillation Status: Acute Assessment and Plan: In the ER is found to be in AFib RVR. He received metoprolol IV with improvement in HR. He was started on oral metoprolol succinate TSH normal. [id number]. HR better controlled. Continue Eliquis. Continue metoprolol XL. Monitor on tele (3) Scrotal edema: Code(s): N50.89 - Other specified disorders of the male genital organs Status: Acute Assessment and Plan: Scrotal US normal. Scrotal edema related to CHF. As above (4) Stage 3b chronic kidney disease: Code(s): N18.32 - Chronic kidney disease, stage 3b Status: Acute Assessment and Plan: Patient has CKD with baseline Cr 1.9-2 range. Cr 1.96 on admission. Monitor electrolytes, UOP and renal function closely given active diuresis. Cr up to 2.25 Avoid nephrotoxic medications. (5) Hypothyroid: Qualifiers: Hypothyroidism type: unspecified Qualified Code(s): E03.9 - Hypothyroidism, unspecified Code(s): E03.9 - Hypothyroidism, unspecified Status: Acute Assessment and Plan: Patient has a history of hypothyroidism according to chart review. He also has not refilled levothyroxine since February. TSH normal here. (6) Essential (primary) hypertension: Code(s): I10 - Essential (primary) hypertension Status: Chronic Assessment and Plan: Patient's blood pressure was reviewed on 09/01 Blood pressure remains well controlled. Will continue to monitor (7) Suprapubic catheter: Code(s): Z93.59 - Other cystostomy status Status: Acute Assessment and Plan: Stable. Routine SP care. (8) Abnormal urinalysis: Code(s): R82.90 - Unspecified abnormal findings in urine Status: Acute Assessment and Plan: Patient has an abnormal appearing urinalysis but he is not having any fever or leukocytosis to suggest infection and he had a negative urine culture with subsequent treatment with 3 additional antibiotics despite the negative urinary tract infection. Levaquin discontinued that was ordered as outpatient. Follow up on urine culture. (9) Pressure ulcer of left heel: Qualifiers: Pressure injury stage: unspecified pressure injury stage Qualified Code(s): L89.629 - Pressure ulcer of left heel, unspecified stage Code(s): L89.629 - Pressure ulcer of left heel, unspecified stage Status: Acute Assessment and Plan: Lesions appears dry and without evidence of infection. Leave open to air but cover with loose dressing to protect from trauma (10) CAD (coronary artery disease): Code(s): I25.10 - Atherosclerotic heart disease of [place] coronary artery without angina pectoris Status: Chronic Assessment and Plan: Patient with a hx of CAD. Was on Crestor and ASA at prior cardiology visits and these medications have been renewed. Plan PERLITA - Auto titrating CPAP/BiPAP has been ordered. The patient states that he will need a prescription for new mask and tubing for his CPAP on discharge. Bilateral LE paresis - related to lumbar back surgery. He is able to stand and transfer. Stable. 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 No CP. No SOB. No n/v. Cough is dry and without change. Exam Narrative: AF 97.0 107/69 98 20 98% ra Gen - NARD Chest - right base crackels o/w clear. CV - RRR S1/S2 Tele showing episodes of possible AFib Abd - Soft, obese, NT, SP secured with [place] draining clear yellow urine. - mild scrotal edema Ext - trace bilateral LE edema Neuro - Alert and appropriate. Bilateral LE paresis Psych - Nml mood and affect Skin - Warm and dry. Left foot dressing clean, dry and intact. Objective Data Vital Signs Vital Signs: Vital Signs - 24 hr 08/31/25 16:00 08/31/25 16:10 08/31/25 18:00 Temperature 97.5 F L Pulse Rate 102 H 99 101 H Respiratory Rate 16 Blood Pressure 110/72 Pulse Oximetry 98 Oxygen Delivery 08/31/25 19:44 08/31/25 19:55 08/31/25 20:00 Temperature 97.5 F L Pulse Rate 110 H 97 Respiratory Rate 16 Blood Pressure 112/77 Pulse Oximetry 100 Oxygen Delivery Room Air 08/31/25 22:00 08/31/25 23:37 08/31/25 23:56 Temperature 97.7 F Pulse Rate 94 94 91 Respiratory Rate 18 22 H Blood Pressure 119/86 Pulse Oximetry 100 Oxygen Delivery Autopap 09/01/25 00:00 09/01/25 00:00 09/01/25 02:00 Temperature Pulse Rate 95 94 Respiratory Rate Blood Pressure Pulse Oximetry Oxygen Delivery Room Air 09/01/25 02:12 09/01/25 04:00 09/01/25 04:00 Temperature Pulse Rate 95 97 Respiratory Rate 21 H Blood Pressure Pulse Oximetry Oxygen Delivery Autopap Room Air 09/01/25 04:00 09/01/25 06:00 09/01/25 07:59 Temperature 98.0 F 97.9 F Pulse Rate 102 H 95 98 Respiratory Rate 16 18 Blood Pressure 111/88 121/82 Pulse Oximetry 100 98 Oxygen Delivery 09/01/25 08:00 09/01/25 08:47 09/01/25 10:00 Temperature Pulse Rate 98 92 93 Respiratory Rate Blood Pressure Pulse Oximetry Oxygen Delivery 09/01/25 11:44 09/01/25 12:00 09/01/25 14:00 Temperature 97.0 F L Pulse Rate 94 104 H 98 Respiratory Rate 20 Blood Pressure 107/69 Pulse Oximetry 98 Oxygen Delivery Intake/Output Intake/Output: Intake & Output 08/29/25 08/30/25 08/31/25 09/01/25 23:59 23:59 23:59 23:59 Intake Total 2340 630 Output Total 1000 4000 850 Balance -1000 -1669 -153 Meds/Results Medications: Active Medications Generic Name Dose Route Start Last Admin Trade Name Freq PRN Reason Stop Dose Admin Acetaminophen 650 mg 08/30/25 22:44 08/31/25 08:53 Acetaminophen 325 Mg Tablet PO 650 mg Q4H PRN Administration Mild Pain (1-3) or Fever Apixaban 5 mg 08/31/25 09:00 09/01/25 08:47 Apixaban 5 Mg Tablet PO 5 mg Q12HR ADALBERTO Administration Artificial Tears 1 drop 09/01/25 03:46 09/01/25 03:54 Artificial Tears Ophth Soln 15 Ml Bottle EACH EYE 1 drop QID PRN Administration Dry Eye(s) Aspirin 81 mg 09/01/25 11:15 09/01/25 11:44 Aspirin 81 Mg Enteric Tablet PO 81 mg QAM ADALBERTO Administration Benzocaine 1 lozenge 09/01/25 11:41 09/01/25 11:54 Benzocaine/Menthol (*Bkc) 18 Ea Lozenge PO 1 lozenge Q2HR PRN Administration Sore Throat Calcium Carbonate 200 mg 08/30/25 22:44 Calcium Carbonate (Tums) 500 Mg (200 Mg Elemental) PO Q6H PRN Indigestion Docusate Sodium 100 mg 08/30/25 22:44 Docusate Sodium 100 Mg Capsule PO Q12H PRN Constipation Furosemide 40 mg 08/31/25 09:00 09/01/25 08:47 Furosemide Inj 40 Mg/4 Ml Vial IV PUSH 40 mg BID ADALBERTO Administration Metoprolol Succinate 25 mg 08/31/25 09:00 09/01/25 08:47 Metoprolol Succinate Ext Rel 25 Mg Tabcr PO 25 mg QAM ADALBERTO Administration Multi-Ingred Cream/Lotion/Oil/Oint 1 applic 08/31/25 10:10 09/01/25 08:47 Eucerin Cream 120 Gm Jar TOPICAL 1 applic DAILY ADALBERTO Administration Rosuvastatin Calcium 20 mg 09/01/25 11:15 09/01/25 11:44 Rosuvastatin 20 Mg Tablet PO 20 mg QAM ADALBERTO Administration Sacubitril/Valsartan 1 tab 09/01/25 11:15 09/01/25 11:44 Sacubitril/Valsartan 24-26 Mg Tablet PO 1 tab Q12HR ADALBERTO Administration Radiology Results: ITS Impressions Chest X-Ray 08/30/25 20:03 IMPRESSION: Cardiomegaly with pulmonary edema suggestive of congestive heart failure. Scrotum Ultrasound 08/31/25 10:19 IMPRESSION: 1. Small bilateral hydroceles. 2. Scrotal skin thickening. Labs Labs: Laboratory Results - last 24 hr 09/01/25 03:54 WBC 6.6 RBC 4.19 L Hgb 12.8 L Hct 40.2 L MCV 95.9 MCH 30.5 MCHC 31.8 L RDW 14.0 Plt Count 150 MPV 9.6 Immature Gran % (Auto) 0.3 Neut % (Auto) 53.0 Lymph % (Auto) 33.1 [place] % (Auto) 8.5 Eos % (Auto) 4.2 Baso % (Auto) 0.9 Lymph # (Auto) 2.18 [place] # (Auto) 0.6 Eos # (Auto) 0.3 Baso # (Auto) 0.1 Abs Immat Gran (auto) 0.02 Absolute Neuts (auto) 3.5 Absolute Nucleated RBC 0.000 Nucleated RBC % 0.0 % Immature Plt Fraction 1.7 Sodium 136 L Potassium 4.0 Chloride 107 Carbon Dioxide 23 Anion Gap 6 BUN 26 H Creatinine 2.25 H Estim Creat Clear Calc 41 Estimated GFR 29 L Glucose 108 Calcium 8.5 Phosphorus 4.0 Magnesium 2.3 Albumin 3.4 L
[2025-09-02] VITALS (17 sets, daily range): BP systolic 101–110; BP diastolic 63–75; PULSE 78–99; RESP 16–21; TEMP 36.3–36.8; O2SAT 97–99; BMI 47.8
[2025-09-02 04:52] LABS: Albumin Level 3.1 g/dL (3.5-5.1); Anion Gap 7 mmol/L (4-12); Blood Urea Nitrogen 29 mg/dL (9-20); Calcium 7.7 mg/dL (8.4-10.2); Carbon Dioxide 23 mmol/L (22-30); Chloride 106 mmol/L (98-107); Estimated CRCL calculation 36 ml/min; Estimated Glomerular Filt Rate 26; Glucose 137 mg/dL (65-110); Potassium 3.6 mmol/L (3.4-5.0); Sodium 136 mmol/L (137-145)
[2025-09-02] MEDS: SACUBITRIL/VALSARTAN 24-26 MG TABLET 1 TAB PO ×2 (08:18→21:10)
[2025-09-02] MEDS: APIXABAN 5 MG TABLET PO ×2 (08:18→21:10)
[2025-09-02] MEDS: FUROSEMIDE INJ 40 MG/4 ML VIAL IV PUSH (08:18)
[2025-09-02] MEDS: ROSUVASTATIN 20 MG TABLET PO (08:18)
[2025-09-02] MEDS: ASPIRIN 81 MG ENTERIC TABLET PO (08:18)
[2025-09-02] MEDS: METOPROLOL SUCCINATE EXT REL 25 MG TABCR PO (08:18)
[2025-09-02] MEDS: EUCERIN CREAM 120 GM JAR 1 APPLIC TOPICAL (08:19)
[2025-09-02] MEDS: BENZOCAINE/MENTHOL (*BKC) 18 EA LOZENGE 1 LOZENGE PO ×2 (08:22→17:56)
--- NOTE | 2025-09-02 09:24 | P.PNCA_ITS ---
Progress Note: A&P Assessment and Plan (1) Cardiomyopathy: Code(s): I42.9 - Cardiomyopathy, unspecified Status: Acute Assessment and Plan: New decline in left ventricular systolic function. EF 15-20%. Probably tachycardia mediated * Guideline directed medical therapy with Entresto, metoprolol. Optimize as blood pressure and kidney function allow. * Continue Entresto for now. If his renal function continues to decline while off diuretics, will need to discontinue Entresto. * Would not put him on Jardiance is he has a chronic indwelling catheter * I talked to him about the concept of a LifeVest, he is going to think about this and will let the nursing staff know if he decides to pursue LifeVest. (2) Congestive heart failure: Qualifiers: Heart failure chronicity: chronic Heart failure type: unspecified Qualified Code(s): I50.9 - Heart failure, unspecified Code(s): I50.9 - Heart failure, unspecified Status: Chronic Assessment and Plan: Improved with IV furosemide. Furosemide is now on hold because of worsening renal function. (3) CAD (coronary artery disease): Code(s): I25.10 - Atherosclerotic heart disease of [place] coronary artery without angina pectoris Status: Chronic Assessment and Plan: Stable, not reporting any anginal symptoms. Continue aspirin, receive a statin. (4) Chronic atrial flutter: Code(s): I48.92 - Unspecified atrial flutter Status: Acute Assessment and Plan: Rate controlled. Continue anticoagulation with apixaban. Subjective Date/time seen: 09/02/25 09:24 Interval history: Cardiology follow up visit for CHF, AF, CAD Date of service 09/02/2025: Feeling better. Swelling has improved significantly. Not having shortness of breath, chest pain, or palpitations. Review of Systems Constitutional: Constitutional: Reports lethargy Eyes: Eyes: Reports no additional eye complaints ENT: Reports system reviewed and no additional complaints, except as documented Cardiovascular: Cardiovascular: Reports as per HPI and Reports dyspnea on exertion Respiratory: Respiratory: Reports dyspnea on exertion Gastrointestinal: Gastrointestinal: Reports no additional gastrointestinal complaints Musculoskeletal: Musculoskeletal: Reports as per HPI Integumentary/Breasts: Skin/Breast: Reports system reviewed and no additional complaints, except as docu Neurologic: Reports as per HPI Psychiatric: Psychiatric: Reports as per HPI and Reports depression Exam Const: General: comfortable and no acute distress Other: Very pleasant morbidly obese man sitting in the chair. HENMT: Mouth: Yes moist mucous membranes Eyes: Sclera: sclerae normal Neck: Neck: supple Other: But body habitus precludes comment on JVD Resp: Effort & Inspection: normal respiratory effort Auscultation: clear to auscultation bilaterally Other: Breath sounds are distant but largely clear Cardio: Rate: regular rate Rhythm: abnormal rhythm irregularly irregular GI: Auscultation: normal bowel sounds Skin: General skin exam: normal color Neuro: Other: Alert and oriented x3 Extrem: Other: Mild lower extremity edema Objective Data Vital Signs Vital Signs: Vital Signs - 24 hr 09/01/25 10:00 09/01/25 11:44 09/01/25 12:00 Temperature 36.1 C L Pulse Rate 93 94 104 H Respiratory Rate 20 Blood Pressure 107/69 Pulse Oximetry 98 Oxygen Delivery 09/01/25 14:00 09/01/25 16:00 09/01/25 16:00 Temperature 37.1 C Pulse Rate 98 98 94 Respiratory Rate 20 Blood Pressure 117/82 Pulse Oximetry 97 Oxygen Delivery 09/01/25 18:00 09/01/25 20:00 09/01/25 20:00 Temperature 36.7 C Pulse Rate 100 93 91 Respiratory Rate 16 Blood Pressure 111/75 Pulse Oximetry 95 Oxygen Delivery 09/01/25 22:00 09/01/25 23:02 09/01/25 23:39 Temperature 36.9 C Pulse Rate 93 91 Respiratory Rate 20 Blood Pressure 107/77 Pulse Oximetry 92 98 Oxygen Delivery Room Air 09/02/25 00:00 09/02/25 02:00 09/02/25 04:00 Temperature 36.7 C Pulse Rate 86 88 85 Respiratory Rate 16 Blood Pressure 107/67 Pulse Oximetry 97 Oxygen Delivery 09/02/25 04:00 09/02/25 06:00 09/02/25 07:35 Temperature 36.4 C L Pulse Rate 85 78 92 Respiratory Rate 20 Blood Pressure 110/75 Pulse Oximetry 99 Oxygen Delivery 09/02/25 08:18 Temperature Pulse Rate 93 Respiratory Rate Blood Pressure Pulse Oximetry Oxygen Delivery Intake/Output Intake/Output: Intake & Output 08/30/25 08/31/25 09/01/25 09/02/25 23:59 23:59 23:59 23:59 Intake Total 2340 1370 148 Output Total 1000 4000 2450 800 Balance -1000 -1660 -1080 -652 Meds/Results Medications: Active Medications Generic Name Dose Route Start Last Admin Trade Name Freq PRN Reason Stop Dose Admin Acetaminophen 650 mg 08/30/25 22:44 08/31/25 08:53 Acetaminophen 325 Mg Tablet PO 650 mg Q4H PRN Administration Mild Pain (1-3) or Fever Apixaban 5 mg 08/31/25 09:00 09/02/25 08:18 Apixaban 5 Mg Tablet PO 5 mg Q12HR ADALBERTO Administration Artificial Tears 1 drop 09/01/25 03:46 09/01/25 03:54 Artificial Tears Ophth Soln 15 Ml Bottle EACH EYE 1 drop QID PRN Administration Dry Eye(s) Aspirin 81 mg 09/01/25 11:15 09/02/25 08:18 Aspirin 81 Mg Enteric Tablet PO 81 mg QAM ADALBERTO Administration Benzocaine 1 lozenge 09/01/25 11:41 09/02/25 08:22 Benzocaine/Menthol (*Bkc) 18 Ea Lozenge PO 1 lozenge Q2HR PRN Administration Sore Throat Calcium Carbonate 200 mg 08/30/25 22:44 Calcium Carbonate (Tums) 500 Mg (200 Mg Elemental) PO Q6H PRN Indigestion Docusate Sodium 100 mg 08/30/25 22:44 Docusate Sodium 100 Mg Capsule PO Q12H PRN Constipation Furosemide 40 mg 09/02/25 09:00 09/02/25 08:18 Furosemide Inj 40 Mg/4 Ml Vial IV PUSH 40 mg On Hold: 09/02/25 09:00 DAILY ADALBERTO Administration Metoprolol Succinate 25 mg 08/31/25 09:00 09/02/25 08:18 Metoprolol Succinate Ext Rel 25 Mg Tabcr PO 25 mg QAM ADALBERTO Administration Multi-Ingred Cream/Lotion/Oil/Oint 1 applic 08/31/25 10:10 09/02/25 08:19 Eucerin Cream 120 Gm Jar TOPICAL 1 applic DAILY ADALBERTO Administration Rosuvastatin Calcium 20 mg 09/01/25 11:15 09/02/25 08:18 Rosuvastatin 20 Mg Tablet PO 20 mg QAM ADALBERTO Administration Sacubitril/Valsartan 1 tab 09/01/25 11:15 09/02/25 08:18 Sacubitril/Valsartan 24-26 Mg Tablet PO 1 tab Q12HR ADALBERTO Administration Radiology Results: ITS Impressions Chest X-Ray 08/30/25 20:03 IMPRESSION: Cardiomegaly with pulmonary edema suggestive of congestive heart failure. Scrotum Ultrasound 08/31/25 10:19 IMPRESSION: 1. Small bilateral hydroceles. 2. Scrotal skin thickening. Labs Labs: Laboratory Results - last 24 hr 09/02/25 03:55 Sodium 136 L Potassium 3.6 Chloride 106 Carbon Dioxide 23 Anion Gap 7 BUN 29 H Creatinine 2.52 H Estim Creat Clear Calc 36 Estimated GFR 26 L Glucose 137 H Calcium 7.7 L Phosphorus 4.1 Albumin 3.1 L Quality VTE Prophylaxis VTE prophylaxis: pharmacologic ordered (Continue home Eliquis.)
--- NOTE | 2025-09-02 09:51 | P.PNIM_ITS ---
Progress Note: A&P Assessment and Plan (1) CHF (congestive heart failure): Qualifiers: Heart failure chronicity: acute on chronic Heart failure type: unspecified Qualified Code(s): I50.9 - Heart failure, unspecified Code(s): I50.9 - Heart failure, unspecified Status: Acute Assessment and Plan: The patient presents with worsening scrotal edema with bilateral LE edema. BNP 9280. EKG showing AFlutter with borderline ST-T wave changes in the anterolateral and high lateral leads CXR showing CMG with pulmonary edema He was given Lasix IV and metoprolol IV once. He was admitted and started on Lasix 40mg IV BID Echo in 2019 showing EF 60-65% with Grade I diastolic dysfunction and no significant valve disease Echo here showing severe LV enlargement with severely reduced systolic fxn with EF 20%, indeterminate diastolic fxn, moderate RVE with hypokinesis, biatrial dil ation L>R and moderate MR. Patient with acute systolic CHF and possibly Rt sided heart failure Treated with IV Lasix but Cr higher so will hold Lasix. Continue Metoprolol XL and Entresto. Will add GDMT as tolerated. Cardiology consulted and appreciate their input. Monitor strict I&O's and daily weights. Life vest planned at discharge. (2) Paroxysmal atrial fibrillation with RVR: Code(s): I48.0 - Paroxysmal atrial fibrillation Status: Acute Assessment and Plan: In the ER is found to be in AFib RVR. He received metoprolol IV with improvement in HR and started on Toprol XL TSH normal. [id number] 5. HR better controlled. Continue Eliquis. Continue metoprolol XL. Monitor on tele (3) Scrotal edema: Code(s): N50.89 - Other specified disorders of the male genital organs Status: Acute Assessment and Plan: Scrotal US normal. Scrotal edema related to CHF. As above (4) Stage 3b chronic kidney disease: Code(s): N18.32 - Chronic kidney disease, stage 3b Status: Acute Assessment and Plan: Patient has CKD with baseline Cr 1.9-2 range. Cr 1.96 on admission. Monitor electrolytes, UOP and renal function closely given active diuresis. Cr up to 2.5 Avoid nephrotoxic medications. Hold Lasix for today. (5) Hypothyroid: Qualifiers: Hypothyroidism type: unspecified Qualified Code(s): E03.9 - Hypothyroidism, unspecified Code(s): E03.9 - Hypothyroidism, unspecified Status: Acute Assessment and Plan: Patient has a history of hypothyroidism according to chart review. He also has not refilled levothyroxine since February. TSH normal here. (6) Essential (primary) hypertension: Code(s): I10 - Essential (primary) hypertension Status: Chronic Assessment and Plan: Patient's blood pressure was reviewed on 09/02 Blood pressure remains well controlled. Will continue to monitor (7) Suprapubic catheter: Code(s): Z93.59 - Other cystostomy status Status: Acute Assessment and Plan: Stable. Routine SP care. Urology consult since he is due to have the SP exchanged soon (8) Abnormal urinalysis: Code(s): R82.90 - Unspecified abnormal findings in urine Status: Acute Assessment and Plan: Patient has an abnormal appearing urinalysis but he is not having any fever or leukocytosis to suggest infection and he had a negative urine culture with subsequent treatment with 3 additional antibiotics despite the negative urinary tract infection. Levaquin discontinued that was ordered as outpatient. UCx showing 25-50K mixed urogenital jason. Monitor clinically off abx. (9) Pressure ulcer of left heel: Qualifiers: Pressure injury stage: unspecified pressure injury stage Qualified Code(s): L89.629 - Pressure ulcer of left heel, unspecified stage Code(s): L89.629 - Pressure ulcer of left heel, unspecified stage Status: Acute Assessment and Plan: Lesions appears dry and without evidence of infection. Leave open to air but cover with loose dressing to protect from trauma (10) CAD (coronary artery disease): Code(s): I25.10 - Atherosclerotic heart disease of [place] coronary artery without angina pectoris Status: Chronic Assessment and Plan: Patient with a hx of CAD. Was on Crestor and ASA at prior cardiology visits and these medications have been resumed here Plan PERLITA - Auto titrating CPAP/BiPAP has been ordered. The patient states that he will need a prescription for new mask and tubing for his CPAP on discharge. Bilateral LE paresis - related to lumbar back surgery. He is able to stand and transfer. Stable. 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 +Post nasal drainage. No Cp or SOB. scrotal edema better Exam Narrative: AF 97.5 110/75 93 20 99% ra Gen - NARD Chest - few basilar crackles o/w clear. CV - RRR S1/S2 Tele showing sinus with PACs and probably episodes of AFib Abd - Soft, obese, NT, SP secured with Shoemaker draining clear yellow urine. - mild scrotal edema Ext - trace bilateral LE edema Neuro - Alert and appropriate. Bilateral LE paresis Psych - Nml mood and affect Skin - Warm and dry. Left foot dressing clean, dry and intact. Objective Data Vital Signs Vital Signs: Vital Signs - 24 hr 09/01/25 10:00 09/01/25 11:44 09/01/25 12:00 Temperature 97.0 F L Pulse Rate 93 94 104 H Respiratory Rate 20 Blood Pressure 107/69 Pulse Oximetry 98 Oxygen Delivery 09/01/25 14:00 09/01/25 16:00 09/01/25 16:00 Temperature 98.7 F Pulse Rate 98 98 94 Respiratory Rate 20 Blood Pressure 117/82 Pulse Oximetry 97 Oxygen Delivery 09/01/25 18:00 09/01/25 20:00 09/01/25 20:00 Temperature 98.1 F Pulse Rate 100 93 91 Respiratory Rate 16 Blood Pressure 111/75 Pulse Oximetry 95 Oxygen Delivery 09/01/25 22:00 09/01/25 23:02 09/01/25 23:39 Temperature 98.4 F Pulse Rate 93 91 Respiratory Rate 20 Blood Pressure 107/77 Pulse Oximetry 92 98 Oxygen Delivery Room Air 09/02/25 00:00 09/02/25 02:00 09/02/25 04:00 Temperature 98.0 F Pulse Rate 86 88 85 Respiratory Rate 16 Blood Pressure 107/67 Pulse Oximetry 97 Oxygen Delivery 09/02/25 04:00 09/02/25 06:00 09/02/25 07:35 Temperature 97.5 F L Pulse Rate 85 78 92 Respiratory Rate 20 Blood Pressure 110/75 Pulse Oximetry 99 Oxygen Delivery 09/02/25 08:00 09/02/25 08:18 09/02/25 09:00 Temperature Pulse Rate 92 93 Respiratory Rate Blood Pressure Pulse Oximetry Oxygen Delivery Room Air Intake/Output Intake/Output: Intake & Output 08/30/25 08/31/25 09/01/25 09/02/25 23:59 23:59 23:59 23:59 Intake Total 2340 1370 148 Output Total 1000 4000 2450 800 [facility] -1000 -1660 -1080 -652 Meds/Results Medications: Active Medications Generic Name Dose Route Start Last Admin Trade Name Freq PRN Reason Stop Dose Admin Acetaminophen 650 mg 08/30/25 22:44 08/31/25 08:53 Acetaminophen 325 Mg Tablet PO 650 mg Q4H PRN Administration Mild Pain (1-3) or Fever Apixaban 5 mg 08/31/25 09:00 09/02/25 08:18 Apixaban 5 Mg Tablet PO 5 mg Q12HR ADALBERTO Administration Artificial Tears 1 drop 09/01/25 03:46 09/01/25 03:54 Artificial Tears Ophth Soln 15 Ml Bottle EACH EYE 1 drop QID PRN Administration Dry Eye(s) Aspirin 81 mg 09/01/25 11:15 09/02/25 08:18 Aspirin 81 Mg Enteric Tablet PO 81 mg QAM ADALBERTO Administration Benzocaine 1 lozenge 09/01/25 11:41 09/02/25 08:22 Benzocaine/Menthol (*Bkc) 18 Ea Lozenge PO 1 lozenge Q2HR PRN Administration Sore Throat Calcium Carbonate 200 mg 08/30/25 22:44 Calcium Carbonate (Tums) 500 Mg (200 Mg Elemental) PO Q6H PRN Indigestion Docusate Sodium 100 mg 08/30/25 22:44 Docusate Sodium 100 Mg Capsule PO Q12H PRN Constipation Furosemide 40 mg 09/02/25 09:00 09/02/25 08:18 Furosemide Inj 40 Mg/4 Ml Vial IV PUSH 40 mg On Hold: 09/02/25 09:00 DAILY ADALBERTO Administration Metoprolol Succinate 25 mg 08/31/25 09:00 09/02/25 08:18 Metoprolol Succinate Ext Rel 25 Mg Tabcr PO 25 mg QAM ADALBERTO Administration Multi-Ingred Cream/Lotion/Oil/Oint 1 applic 08/31/25 10:10 09/02/25 08:19 Eucerin Cream 120 Gm Jar TOPICAL 1 applic DAILY ADALBERTO Administration Rosuvastatin Calcium 20 mg 09/01/25 11:15 09/02/25 08:18 Rosuvastatin 20 Mg Tablet PO 20 mg QAM ADALEBRTO Administration Sacubitril/Valsartan 1 tab 09/01/25 11:15 09/02/25 08:18 Sacubitril/Valsartan 24-26 Mg Tablet PO 1 tab Q12HR ADALBERTO Administration Radiology Results: ITS Impressions Chest X-Ray 08/30/25 20:03 IMPRESSION: Cardiomegaly with pulmonary edema suggestive of congestive heart failure. Scrotum Ultrasound 08/31/25 10:19 IMPRESSION: 1. Small bilateral hydroceles. 2. Scrotal skin thickening. Labs Labs: Laboratory Results - last 24 hr 09/02/25 03:55 Sodium 136 L Potassium 3.6 Chloride 106 Carbon Dioxide 23 Anion Gap 7 BUN 29 H Creatinine 2.52 H Estim Creat Clear Calc 36 Estimated GFR 26 L Glucose 137 H Calcium 7.7 L Phosphorus 4.1 Albumin 3.1 L
--- NOTE | 2025-09-02 15:32 | P.CONUR_ITS ---
Assessment and Plan Assessment and plan (1) Urinary retention: Code(s): R33.9 - Retention of urine, unspecified Status: Acute Assessment and Plan: - 18 Fr suprapubic tube exchanged in sterile fashion with efflux of clear, yellow urine - Next exchange due 4 weeks in outpatient clinic (2) Abnormal urinalysis: Code(s): R82.90 - Unspecified abnormal findings in urine Status: Acute Assessment and Plan: - UA with RBCs and leuks which likely reflect SPT presence vs colonization of catheter - Pt currently asymptomatic and has just completed course of Abx - No further workup or management recommended at this time - Urology to follow peripherally, please call with any additional questions Urology Consult Note HPI Date Seen: 09/02/25 Requesting Physician: Radha Rosario DO Primary Care Provider: Jaya Dailey MD Consult Narrative Narrative: Pt is a 70 year old M with atonic bladder managed with SPT who is admitted for CHF exacerbation for whom urology is consulted for management of SPT. Pt denies issues with catheter and reports consistent output of clear, yellow urine. Of note, pt recently completed course of Abx for UTI. 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 Iron deficiency Spinal cord tumor Stage 3b chronic kidney disease Hypothyroid Vitamin D deficiency, unspecified Atrial flutter Resistance to multiple antimicrobial drugs In the urine Diabetes mellitus with chronic kidney disease Type 2 diabetes mellitus with unspecified diabetic retinopathy with macular edema BMI 45.0-49.9, adult Insulin dependent type 2 diabetes mellitus Morbid (severe) obesity due to excess calories CAD (coronary artery disease) Hyperlipidemia Microhematuria Congestive heart failure Echocardiogram 2019 demonstrated normal ejection fraction with grade 1 diastolic dysfunction Umbilical hernia Depression with anxiety Essential (primary) hypertension Insomnia PERLITA on CPAP CPAP of 19 Polyneuropathy, unspecified Pure hypercholesterolemia Surgical History Surgical History (Updated 08/31/25 @ 05:16 by Radha Rosario DO) Chronic suprapubic catheter (~2023) Status post medial meniscus repair of left knee H/O skin graft left ankle History of removal of pigmented skin lesion eyelids H/O heart artery stent 2 in 2018 and 2 in 2019. History of left shoulder replacement (~2019) S/P tonsillectomy and adenoidectomy Family History Family History Father Family history of malignant neoplasm Leukemia Cerebrovascular accident Diabetes mellitus Exposure to uranium Mother Kidney failure Kidney disease Sibling Acute myocardial infarction Cardiac defibrillator in place Sibling Alcohol abuse Lung cancer Other No problems noted. Other No problems noted. Other Family history of arthritis Family history of coronary artery disease Family history of elevated blood lipids Family history of glaucoma Family history of hypercholesterolemia Family history of obesity Hypertension Social History Social History (Updated 08/31/25 @ 05:25 by Radha Rosario DO) Social History: He lives in his own home. He utilizes a wheelchair for mobility. He can pivot to transfer but for the most part cannot walk. His biological daughter of sepsis and was sounds like Saqib's gangrene. His son is still living. But is surrogate decision maker is his daughter's best friend which she has claimed as his ?unofficial daughter?. His Honorary daughter her and her son live with the patient and help provide his daily cares. He still smokes 3 thin cigars a day. He used to smoke significantly heavier amount and quit smoking for many years before restarting in 2022. 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 He drinks 1 alcoholic beverage about once a month. He intermittently uses marijuana. Surrogate medical decision maker: Jennifer Gonzalezn (Honorary daughter) Code status: Full code (however he would not want long-term ventilation, tracheostomy or PEG tube) Smoking packs per day: 1 Smoking cigarettes per day: 20.0 Years smoked: 35 Smoking pack-years: 35.00 Smoking status: Current every day smoker Tobacco type: cigars Second hand tobacco smoke exposure: Yes Alcohol intake: current Alcohol use details: One drink per month Substance use: current Substance use type: marijuana Do You Feel Safe in your Home?: Yes Lack of Transportation: No Lack of Food: Never True Current Housing: I Have Housing Concerned About Future Housing: No Difficulty Paying Gas/Electric Bills: No Difficulty Paying for Meds: No Currently Unemployed: No Education: High School Diploma/GED Difficulty w/ Childcare or Family Care: No Living arrangements: with family Occupation/Education: retired 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 Gender identity (if verbalized by the patient): Male Spiritual care concerns: No Meds Home Medications and Allergies Home Medications ?Medication ?Instructions ?Recorded ?Confirmed ?Type blood sugar diagnostic (Prodigy No #50 ea 06/14/24 Rx Coding strips) apixaban 5 mg tablet (Eliquis) 5 mg PO BID #180 tabs 0 02/04/25 08/30/25 Rx levofloxacin 250 mg tablet 250 mg PO DAILY 10 days #10 tabs 08/29/25 08/30/25 Rx Allergies Allergy/AdvReac Type Severity Reaction Status Date / Time atorvastatin AdvReac Intermediate myalgia Verified 08/30/25 23:26 Vital Signs Vital Signs - 24 hr 09/01/25 16:00 09/01/25 16:00 09/01/25 18:00 Temperature 37.1 C Pulse Rate 98 94 100 Respiratory Rate 20 Blood Pressure 117/82 Pulse Oximetry 97 Oxygen Delivery 09/01/25 20:00 09/01/25 20:00 09/01/25 22:00 Temperature 36.7 C Pulse Rate 93 91 93 Respiratory Rate 16 Blood Pressure 111/75 Pulse Oximetry 95 Oxygen Delivery 09/01/25 23:02 09/01/25 23:39 09/02/25 00:00 Temperature 36.9 C Pulse Rate 91 86 Respiratory Rate 20 Blood Pressure 107/77 Pulse Oximetry 92 98 Oxygen Delivery Room Air 09/02/25 02:00 09/02/25 04:00 09/02/25 04:00 Temperature 36.7 C Pulse Rate 88 85 85 Respiratory Rate 16 Blood Pressure 107/67 Pulse Oximetry 97 Oxygen Delivery 09/02/25 06:00 09/02/25 07:35 09/02/25 08:00 Temperature 36.4 C L Pulse Rate 78 92 92 Respiratory Rate 20 Blood Pressure 110/75 Pulse Oximetry 99 Oxygen Delivery 09/02/25 08:18 09/02/25 09:00 09/02/25 10:00 Temperature Pulse Rate 93 94 Respiratory Rate Blood Pressure Pulse Oximetry Oxygen Delivery Room Air 09/02/25 10:25 09/02/25 11:38 Temperature 36.7 C Pulse Rate 94 Respiratory Rate 20 Blood Pressure 109/69 Pulse Oximetry 98 Oxygen Delivery Room Air Exam 2 Const: General: comfortable and no acute distress Eyes: General: appearance normal, both eyes and all related structures Resp: Effort & Inspection: normal respiratory effort Urinary Catheter: Urinary Catheter: patent and draining and urine clear Skin: General skin exam: normal color Neuro: Speech: normal speech Extrem: General: normal to inspection Psych: Speech and movement: Normal speech and movement present Affect: n ormal affect Results Labs 09/01/25 03:54 09/02/25 03:55 Labs: BMP 09/02/25 03:55 Sodium 136 L Potassium 3.6 Chloride 106 Carbon Dioxide 23 BUN 29 H Creatinine 2.52 H Glucose 137 H Calcium 7.7 L Liver Function 09/02/25 Range/Units 03:55 Albumin 3.1 L (3.5-5.1) g/dL
[2025-09-02] MEDS: POTASSIUM CHLORIDE 20 MEQ ER TABLET PO (17:56)
[2025-09-03] VITALS (12 sets, daily range): BP systolic 95–122; BP diastolic 47–77; PULSE 91–108; RESP 19–23; TEMP 36.6–36.7; O2SAT 92–98
[2025-09-03] MEDS: BENZOCAINE/MENTHOL (*BKC) 18 EA LOZENGE 1 LOZENGE PO (02:48)
[2025-09-03 04:22] LABS: Albumin Level 3.3 g/dL (3.5-5.1); Anion Gap 7 mmol/L (4-12); Blood Urea Nitrogen 33 mg/dL (9-20); Calcium 7.8 mg/dL (8.4-10.2); Carbon Dioxide 23 mmol/L (22-30); Chloride 106 mmol/L (98-107); Estimated CRCL calculation 38 ml/min; Estimated Glomerular Filt Rate 27; Glucose 143 mg/dL (65-110); Magnesium 2.4 mg/dL (1.6-2.3); Potassium 4.0 mmol/L (3.4-5.0); Sodium 136 mmol/L (137-145)
--- NOTE | 2025-09-03 08:34 | P.PNCA_ITS ---
Progress Note: A&P Assessment and Plan (1) Cardiomyopathy: Code(s): I42.9 - Cardiomyopathy, unspecified Status: Acute Assessment and Plan: New decline in left ventricular systolic function. EF 15-20%. Probably tachycardia mediated, but does have history of CAD * Guideline directed medical therapy with Entresto, metoprolol. Optimize as blood pressure and kidney function allow. * His BP is on low side will change Entresto to 1/2 tablet BID * If his renal function continues to decline while off diuretics, will need to discontinue Entresto. * Would not put him on Jardiance is he has a chronic indwelling catheter * patient has lifevest on and in place * He will need follow up in office in the next 2 weeks * we discussed low sodium diet, fluid restriction and medication compliance at home * Will need to discuss OP ischemic eval with cath vs stress test on OP basis pending renal function (2) Congestive heart failure: Qualifiers: Heart failure type: unspecified Heart failure chronicity: chronic Qualified Code(s): I50.9 - Heart failure, unspecified Code(s): I50.9 - Heart failure, unspecified Status: Chronic Assessment and Plan: Improved with IV furosemide. Furosemide is now on hold because of worsening renal function. Will continue to hold PO lasix at discharge. As noted above fluid restriction and dietary low sodium diet discussed (3) CAD (coronary artery disease): Code(s): I25.10 - Atherosclerotic heart disease of [place] coronary artery without angina pectoris Status: Chronic Assessment and Plan: Stable, not reporting any anginal symptoms. Continue aspirin and rosuvastatin. Given known CAD will need to consider ischemic eval in setting of new worsening CMP Will plan stress test vs cath on OP basis. He would be high risk for contrast induced nephropathy in setting of CKD (4) Chronic atrial flutter: Code(s): I48.92 - Unspecified atrial flutter Status: Acute Assessment and Plan: Rate controlled. Continue anticoagulation with apixaban. On Toprol XL 25 mg daily, had not been compliant with therapy at home. Compliance encouraged He was also encouraged to be compliant with CPAP at home Subjective Date/time seen: 09/03/25 08:34 Interval history: Cardiology follow up visit for CHF, AF, CAD Date of service 09/02/2025: Feeling better. Swelling has improved significantly. Not having shortness of breath, chest pain, or palpitations. Date of service 09/03/25: patient lying in bed. He states scrotal and abdominal swelling much improved and at baseline. No chest pain, shortness of breath, dizziness or palpitaitons. Review of Systems Constitutional: Constitutional: Reports lethargy Eyes: Eyes: Reports no additional eye complaints ENT: Reports system reviewed and no additional complaints, except as documented Cardiovascular: Cardiovascular: Reports as per HPI and Reports dyspnea on exertion Respiratory: Respiratory: Reports dyspnea on exertion Gastrointestinal: Gastrointestinal: Reports no additional gastrointestinal complaints Musculoskeletal: Musculoskeletal: Reports as per HPI Integumentary/Breasts: Skin/Breast: Reports system reviewed and no additional complaints, except as docu Neurologic: Reports as per HPI Psychiatric: Psychiatric: Reports as per HPI and Reports depression Exam Const: General: comfortable and no acute distress Other: Very pleasant morbidly obese man sitting in the chair. HENMT: Mouth: Yes moist mucous membranes Eyes: Sclera: sclerae normal Neck: Neck: supple Other: But body habitus precludes comment on JVD Resp: Effort & Inspection: normal respiratory effort Auscultation: clear to auscultation bilaterally Other: Breath sounds are distant but largely clear Cardio: Rate: regular rate Rhythm: abnormal rhythm irregularly irregular GI: Auscultation: normal bowel sounds Skin: General skin exam: normal color Neuro: Other: Alert and oriented x3 Extrem: Other: Mild lower extremity edema Objective Data Vital Signs Vital Signs: Vital Signs - 24 hr 09/02/25 09:00 09/02/25 10:00 09/02/25 10:25 Temperature Pulse Rate 94 Respiratory Rate Blood Pressure Pulse Oximetry Oxygen Delivery Room Air Room Air 09/02/25 11:38 09/02/25 12:00 09/02/25 14:00 Temperature 36.7 C Pulse Rate 94 94 94 Respiratory Rate 20 Blood Pressure 109/69 Pulse Oximetry 98 Oxygen Delivery 09/02/25 15:50 09/02/25 16:00 09/02/25 18:00 Temperature 36.3 C L Pulse Rate 94 95 99 Respiratory Rate 20 Blood Pressure 104/70 Pulse Oximetry 99 Oxygen Delivery 09/02/25 19:55 09/02/25 20:00 09/02/25 22:00 Temperature 36.8 C Pulse Rate 92 91 97 Respiratory Rate 21 H Blood Pressure 101/63 Pulse Oximetry 97 Oxygen Delivery 09/03/25 00:00 09/03/25 00:00 09/03/25 02:00 Temperature 36.7 C Pulse Rate 93 94 97 Respiratory Rate 23 H Blood Pressure 111/75 Pulse Oximetry 98 Oxygen Delivery 09/03/25 04:00 09/03/25 04:00 09/03/25 06:00 Temperature 36.7 C Pulse Rate 93 93 93 Respiratory Rate 19 Blood Pressure 103/68 Pulse Oximetry 97 Oxygen Delivery 09/03/25 07:59 Temperature 36.6 C Pulse Rate 94 Respiratory Rate 20 Blood Pressure 95/47 L Pulse Oximetry 98 Oxygen Delivery Intake/Output Intake/Output: Intake & Output 08/31/25 09/01/25 09/02/25 09/03/25 23:59 23:59 23:59 23:59 Intake Total 2340 1370 1168 550 Output Total 4000 2450 2550 850 Balance -1660 -1080 -1382 -300 Meds/Results Medications: Active Medications Generic Name Dose Route Start Last Admin Trade Name Freq PRN Reason Stop Dose Admin Acetaminophen 650 mg 08/30/25 22:44 08/31/25 08:53 Acetaminophen 325 Mg Tablet PO 650 mg Q4H PRN Administration Mild Pain (1-3) or Fever Apixaban 5 mg 08/31/25 09:00 09/02/25 21:10 Apixaban 5 Mg Tablet PO 5 mg Q12HR ADALBERTO Administration Artificial Tears 1 drop 09/01/25 03:46 09/01/25 03:54 Artificial Tears Ophth Soln 15 Ml Bottle EACH EYE 1 drop QID PRN Administration Dry Eye(s) Aspirin 81 mg 09/01/25 11:15 09/02/25 08:18 Aspirin 81 Mg Enteric Tablet PO 81 mg QAM ADALBERTO Administration Benzocaine 1 lozenge 09/01/25 11:41 09/03/25 02:48 Benzocaine/Menthol (*Bkc) 18 Ea Lozenge PO 1 lozenge Q2HR PRN Administration Sore Throat Calcium Carbonate 200 mg 08/30/25 22:44 Calcium Carbonate (Tums) 500 Mg (200 Mg Elemental) PO Q6H PRN Indigestion Docusate Sodium 100 mg 08/30/25 22:44 Docusate Sodium 100 Mg Capsule PO Q12H PRN Constipation Metoprolol Succinate 25 mg 08/31/25 09:00 09/02/25 08:18 Metoprolol Succinate Ext Rel 25 Mg Tabcr PO 25 mg QAM ADALBERTO Administration Multi-Ingred Cream/Lotion/Oil/Oint 1 applic 08/31/25 10:10 09/02/25 08:19 Eucerin Cream 120 Gm Jar TOPICAL 1 applic DAILY ADALBERTO Administration Rosuvastatin Calcium 20 mg 09/01/25 11:15 09/02/25 08:18 Rosuvastatin 20 Mg Tablet PO 20 mg QAM ADALBERTO Administration Sacubitril/Valsartan 1 tab 09/01/25 11:15 09/02/25 21:10 Sacubitril/Valsartan 24-26 Mg Tablet PO 1 tab Q12HR ADALBERTO Administration Radiology Results: ITS Impressions Chest X-Ray 08/30/25 20:03 IMPRESSION: Cardiomegaly with pulmonary edema suggestive of congestive heart failure. Scrotum Ultrasound 08/31/25 10:19 IMPRESSION: 1. Small bilateral hydroceles. 2. Scrotal skin thickening. Labs Labs: Laboratory Results - last 24 hr 09/03/25 03:41 Sodium 136 L Potassium 4.0 Chloride 106 Carbon Dioxide 23 Anion Gap 7 BUN 33 H Creatinine 2.37 H Estim Creat Clear Calc 38 Estimated GFR 27 L Glucose 143 H Calcium 7.8 L Phosphorus 3.9 Magnesium 2.4 H Albumin 3.3 L
[2025-09-03] MEDS: ASPIRIN 81 MG ENTERIC TABLET PO (10:06)
[2025-09-03] MEDS: SACUBITRIL/VALSARTAN 12-13 MG TABLET 1 TAB PO (10:06)
[2025-09-03] MEDS: APIXABAN 5 MG TABLET PO (10:07)
[2025-09-03] MEDS: ROSUVASTATIN 20 MG TABLET PO (10:07)
[2025-09-03] MEDS: METOPROLOL SUCCINATE EXT REL 25 MG TABCR PO (10:07)
[2025-09-03] MEDS: EUCERIN CREAM 120 GM JAR 1 APPLIC TOPICAL (10:08)
--- NOTE | 2025-09-03 14:58 | P.DS_ITS ---
DS: Admitting Diagnosis Discharge Date 09/03/25 Admitting Diagnosis Scrotal edema DS: Discharge Diagnosis Discharge Diagnosis (1) CHF (congestive heart failure): Qualifiers: Heart failure type: unspecified Heart failure chronicity: acute on chronic Qualified Code(s): I50.9 - Heart failure, unspecified Code(s): I50.9 - Heart failure, unspecified Status: Acute (2) Paroxysmal atrial fibrillation with RVR: Code(s): I48.0 - Paroxysmal atrial fibrillation Status: Acute (3) Scrotal edema: Code(s): N50.89 - Other specified disorders of the male genital organs Status: Acute (4) Stage 3b chronic kidney disease: Code(s): N18.32 - Chronic kidney disease, stage 3b Status: Acute (5) Hypothyroid: Qualifiers: Hypothyroidism type: unspecified Qualified Code(s): E03.9 - Hypothyroidism, unspecified Code(s): E03.9 - Hypothyroidism, unspecified Status: Acute (6) Essential (primary) hypertension: Code(s): I10 - Essential (primary) hypertension Status: Chronic (7) Suprapubic catheter: Code(s): Z93.59 - Other cystostomy status Status: Acute (8) Abnormal urinalysis: Code(s): R82.90 - Unspecified abnormal findings in urine Status: Acute (9) Pressure ulcer of left heel: Qualifiers: Pressure injury stage: unspecified pressure injury stage Qualified Code(s): L89.629 - Pressure ulcer of left heel, unspecified stage Code(s): L89.629 - Pressure ulcer of left heel, unspecified stage Status: Acute (10) CAD (coronary artery disease): Code(s): I25.10 - Atherosclerotic heart disease of [place] coronary artery without angina pectoris Status: Chronic DS: Summary Hospital Course Reason for hospitalization: 70yo male with 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 Please see H&P for details. Hospital Course: The patient presented with worsening scrotal edema with bilateral LE edema. BNP 9280. EKG showing AFlutter with borderline ST-T wave changes in the anterolateral and high lateral leads. CXR showing CMG with pulmonary edema. He was given Lasix IV and metoprolol IV once. He was admitted and started on Lasix 40mg IV BID. Echo in 2019 showing EF 60-65%. Echo here showing severe LV enlargement with severely reduced systolic fxn with EF 20%, indeterminate diastolic fxn, moderate RVE with hypokinesis, biatrial dilation L>R and moderate MR. Patient with acute systolic CHF and possibly Rt sided heart failure. He had a good diuresis with improvement in his edema. Treated with IV Lasix but Cr higher so will hold Lasix. Cardiology consulted and appreciate their input. Metoprolol XL and Entresto added. In the ER is found to be in AFib RVR. He is known to have AFib. He received metoprolol IV with improvement in HR and started on Toprol XL. TSH normal. HEF4CQ9-Fvoa 5. HR better controlled. We continued Eliquis. He may have tachycardia induced cardiomyopathy. Scrotal US was normal. Scrotal edema related to CHF. Patient has CKD with baseline Cr 1.9-2 range. Cr 1.96 on admission but climbed to 2.5 with diuresis. Off lasix, Cr improved to 2.37. Patient has a history of hypothyroidism according to chart review but he hasn't refilled levothyroxine since February and TSH normal here. Patient with suprapubic catheter. Urology consult and SP was exchanged here. Patient has an abnormal appearing urinalysis but he is not having any fever or leukocytosis to suggest infection and he had a negative urine culture with subsequent treatment with 3 additional antibiotics despite the negative urinary tract infection. Levaquin discontinued that was ordered as outpatient. UCx here showing 25-50K mixed urogenital jason. He had a pressure ulcer of left heel. Lesion appears dry and without evidence of infection. Patient with a hx of CAD. He was on Crestor and ASA at prior cardiology visits and these medications have been resumed here. He has PERLITA and auto titrating CPAP/BiPAP was ordered. The patient states that he will need a prescription for new mask and tubing for his CPAP on discharge. He has bilateral LE paresis related to lumbar back surgery. He was able to stand and transfer. He worked with PT/OT. Patient overall did well and was able to be discharged on 10/28/25. Discharge instructions discussed including side effects of medications. All questions answered. Status at Discharge Cognitive/behavioral status at discharge: stable Time Spent with Patient Time attestation: Total time spent providing and/or coordinating discharge services: 35 minutes Time spent: Greater than 30 minutes Exam Narrative: AF 98.0 122/68 108 20 92%ra Gen - NARD Chest - clear anteriorly and in the flanks. nml RR CV - RRR S1/S2 Tele showing probably sinus with PACs and/or AFib Abd - Soft, obese, NT, SP secured with Shoemaker draining clear yellow urine. - minimal scrotal edema Ext - trace-1+ bilateral LE edema Neuro - Alert and appropriate. Bilateral LE paresis Psych - Nml mood and affect Skin - Warm and dry. Left foot dressing clean, dry and intact. DS: Data Data Completed and Pending Labs on day of discharge: Labs from last 24 hours 09/03/25 03:41 Sodium 136 L Potassium 4.0 Chloride 106 Carbon Dioxide 23 Anion Gap 7 BUN 33 H Creatinine 2.37 H Estim Creat Clear Calc 38 Estimated GFR 27 L Glucose 143 H Calcium 7.8 L Phosphorus 3.9 Magnesium 2.4 H Albumin 3.3 L Discharge Plan Discharge Attending physician on discharge: Wilman Valdez Consulting providers: Hong Vivas; Abdulkadir Machado Discharging Clinician: Wilman Valdez Anticipated Discharge Date/Time: 09/03/25 15:13 Patient Disposition: Home Activity: as tolerated Diet: heart healthy and low sodium Discharge Instructions: Continue to wear your CPAP/BiPAP when sleeping at night or when taking a nap. Fluid restriction diet of <1800mL per day Check blood pressure 1 to 2 times a day. Record and bring into your doctor for review. Call your doctor if your blood pressure is greater than 180/110. Routine suprapubic catheter care. Wear LifeVest at all times. Okay to remove for hygiene. Compression hose on in the morning and off at night. Take precautions to avoid falls. Rise slowly from a lying or sitting position. Pause before standing or walking. Check daily morning weights after voiding. Call your doctor if you gain more than 3 lb in 2 days or 5 lb in 1 week. Contact your doctor or call 911 and come to the Emergency Room if you have increasing shortness of breath, lightheadedness with standing or other worrisome symptoms. Avoid NSAIDs (ibuprofen, naproxen, Aleve). Tylenol is safe to take. Follow-up with your primary care provider in 1-2 weeks. Please call for appointment. Follow-up with Cardiology in 2-3 weeks. Please call for an appointment. Follow-up with Urology in 1 month for catheter exchange. Thank you for using [facility] for your health care needs. Patient Instructions: Antibiotic Form, Metoprolol (By mouth), Apixaban (By mouth), Heart Failure (DC), A-fib (Atrial Fibrillation) (DC), How to Stop Smoking (DC), Cigarette Smoking and Your Health (GEN), Safe Use of Anticoagulants (DC) Patient Language: Ukrainian Stand Alone Forms: General Discharge Information Follow-up/Referrals: Hong Vivas MD [Physician, Cardiology] - Call for Appointment John Wolf PA [Physician Special Education Curriculum Specialist, Urology] Referral Note: Pt to be rescheduled and contacted with date/time Jaya Dailey MD [Primary Care Provider, Family Practice] - Call for Appointment Discharge Medications: New metoprolol succinate [Toprol XL] 25 mg Tablet Extended Release 24 Hr 25 mg PO QAM Qty: 30 2RF rosuvastatin 20 mg Tablet 20 mg PO QAM Qty: 30 2RF sacubitril-valsartan [Entresto] 24-26 mg Tablet 0.5 tab PO Q12HR Qty: 30 2RF Minerin Creme Cream 1 applic topical DAILY Qty: 113 2RF Rx Instructions: Apply to both legs and feet to intact skin daily aspirin 81 mg Tablet,Delayed Release (Dr/Ec) 81 mg PO QAM Qty: 30 2RF Continued (DME) Prodigy No Coding Strip See Rx Instructions .ROUTE .MEDSUPPLY Qty: 50 0RF Rx Instructions: Use to check BS 4 times daily Changed Eliquis 5 mg tablet 5 mg PO Q12H Qty: 180 6RF Patient Comments: Pt started taking again today. Discontinued levofloxacin 250 mg tablet 250 mg PO DAILY 10 Days Qty: 10 0RF Patient Comments: x9 days, started 08/29 Rx Instructions: Take 2 tablets (500mg) the first day, and 1 tablet (250mg) daily until complete Other Ambulatory Orders: Basic Metabolic Panel (Routine) Timeframe: 1 Week Location: Determined by Patient Ordered By: Wilman José Miguel Date of admission: 09/01/25 15:26 Primary Care Provider: Jaya Dailey Admitting Provider: Radha Rosario Attending physician on admission: Radha Rosario Condition: Stable Hospitalist MIPS Heart Failure (Exclusion) Patient has history of Heart Transplant or Left Ventricular Assistive Device?: No IF YES, STOP HERE Heart Failure (Qualifier) Patient has current or prior documentation of LVEF less than or equal to 40%, or mod/servere depressed LVSF?: Yes IF NO, STOP HERE If Yes, Heart Failure (Qualifier) Patient was prescribed or already taking an Angiotensin-Converting Enzyme (CASSANDRA) Inhibitor, or Antiotensin Receptor Belle (ARB): Yes Patient was prescribed or already taking bisoprolol, carvedilol, or sustained release metoprolol succinate: Yes
--- NOTE | 2025-09-03 15:37 | PCRCNOTE ---
José Miguel requested patient have new tubing and mask set up for home PAP unit upon d/c. Pt doesnt know where his PAP unit came from, no salesperson furs it. He stated its over 10 years old, therefore, we are unable to contact a current DME to arrange this equipment and DME will require him to have a new sleep study, and new orders. He was instructed to take the tubing and mask that he has been using here and possibly order cpap supplies online without a order, via the cpap[employer] website. RN notified of this.
--- NOTE | 2025-09-03 15:50 | PCRCNOTE ---
Dr. Valdez placed communication for RT to supply new mask and tubing. Spoke with Martha PLASENCIA and let her know pt can take mask and tubing from machine. Ok per Sarah Garza RT Director.
--- NOTE | 2025-09-03 18:58 | PC.NURSE ---
On 09/03/25, the student, [Nico Hinton ], provided care and completed [facility] documentation on this patient. I have reviewed the student's documentation and agree with the findings.
== END 2025-09-03 16:36 | disposition home or self-care (01) | DRG 291 ==
LOC: ANHED 21:10 → ANHIMU 08-31 00:24
PROVIDERS: Admitting Provider Internal Medicine; Emergency Provider Emergency Medicine; PCP Family Medicine; Visit Provider Internal Medicine
DX: I13.0 Hypertensive heart and chronic kidney disease with heart failure and stage 1 through stage 4 chronic kidney disease, or unspecified chronic kidney disease (principal); I50.43 Acute on chronic combined systolic (congestive) and diastolic (congestive) heart failure; G82.22 Paraplegia, incomplete; Z68.42 Body mass index [BMI] 45.0-49.9, adult; I48.92 Unspecified atrial flutter; N50.89 Other specified disorders of the male genital organs; N31.2 Flaccid neuropathic bladder, not elsewhere classified; E66.9 Obesity, unspecified; N18.32 Chronic kidney disease, stage 3b; I25.10 Atherosclerotic heart disease of native coronary artery without angina pectoris; I48.0 Paroxysmal atrial fibrillation; L89.629 Pressure ulcer of left heel, unspecified stage; G47.33 Obstructive sleep apnea (adult) (pediatric); E03.9 Hypothyroidism, unspecified; E11.22 Type 2 diabetes mellitus with diabetic chronic kidney disease; E11.319 Type 2 diabetes mellitus with unspecified diabetic retinopathy without macular edema; R33.9 Retention of urine, unspecified; E78.5 Hyperlipidemia, unspecified; R00.0 Tachycardia, unspecified; I42.0 Dilated cardiomyopathy; E66.01 Morbid (severe) obesity due to excess calories; E11.42 Type 2 diabetes mellitus with diabetic polyneuropathy; F17.290 Nicotine dependence, other tobacco product, uncomplicated; Z96.612 Presence of left artificial shoulder joint; Z79.01 Long term (current) use of anticoagulants; Z95.5 Presence of coronary angioplasty implant and graft; I25.2 Old myocardial infarction
CPT/HCPCS: 36415; 71045; 76870; 80048; 80053; 80069; 81001; 83735; 83880; 84100; 84443; 85025; 85027; 85055; 87086; 93005; 93976; 96374; 96375; 96376; 97161; 97165; 99285; A9270; C8929; G0378; J0616; J1938; Q9957

== ENCOUNTER 2025-09-16 12:16 | Inpatient (IN) | payer MEDICARE, OTHER, SELFPAY ==
[2025-09-16] VITALS (10 sets, daily range): BP systolic 103–139; BP diastolic 71–92; PULSE 83–99; RESP 16–20; TEMP 36.2–36.4; O2SAT 90–100; BMI 50.2
--- NOTE | ~2025-09-16 | XR_ITS ---
EXAMINATION: XR chest 1V portable DATE: 09/17/2025 13:15 INDICATION: Congestive heart failure exacerbation TECHNIQUE: frontal view of the chest was obtained. COMPARISON: Chest radiograph dated 08/30/2025 FINDINGS: Decreased lung volumes. Bandlike opacities in the right mid to lower lung zone which could represent discoid atelectasis or small amount of fluid along the fissures. Increased mild airspace opacities in the bilateral lower lung zones with mild peribronchial cuffing. No pneumothorax or left-sided pleural effusion. Cardiomegaly. Posterolateral left sixth and seventh left rib fractures. IMPRESSION: 1. New mild opacities in bilateral lower lung zones including some peribronchial cuffing which could represent mild pulmonary edema or pneumonia. 2. Bandlike opacity right mid to lower lung zone which could represent discoid atelectasis or small amount of fluid along the major and minor fissures. Reviewed, dictated and finalized at location [facility]. [facility] IMPRESSION: 1. New mild opacities in bilateral lower lung zones including some peribronchia l cuffing which could represent mild pulmonary edema or pneumonia. 2. Bandlike opacity right mid to lower lung zone which could represent discoid atelectasis or small amount of fluid along the major and minor fissures.
--- OUTSIDE RECORDS SUMMARY | 2025-09-16 12:38 | XMS_ITS | Clinical Summary ---
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 Gender Identity Not on file Sexual Orientation Not on file Last Filed Vital Signs Vital Sign Reading Time Taken Comments Blood Pressure 133/49 01/03/2023 2:03 PM DEMAND PLANNER Pulse 73 01/03/2023 2:34 PM DEMAND PLANNER Temperature 36.4 C (97.6 F) 01/03/2023 2:03 PM DEMAND PLANNER Respiratory Rate 10 01/03/2023 2:03 PM DEMAND PLANNER Oxygen Saturation 98% 01/03/2023 2:03 PM DEMAND PLANNER Inhaled Oxygen Concentration - - Weight 181.4 kg (400 lb) 01/03/2023 2:03 PM DEMAND PLANNER Height 176.8 cm (5' 9.6) 01/03/2023 2:03 PM DEMAND PLANNER Body Mass Index 58.06 01/03/2023 2:03 PM DEMAND PLANNER Plan of Treatment Health Maintenance Due Date [...] 2025 Insurance MEDICARE PART A AND B [facility] MEDICARE PART A AND B Care Teams Supervisor Plating And Point Assembly Relationship Specialty Start Date End Date Jaya Dailey MD [address] [place] [address] PCP - General Family Practice 01/03/23
--- OUTSIDE RECORDS SUMMARY | 2025-09-16 12:38 | XMS_ITS | Clinical Summary ---
Author Organization [facility] Address [address] [place] [id number] Phone Care Team Providers Care Synthetic Resin Operator Name Role Phone Jaya Dailey MD Primary Care Provider [phone] Allergies No known active allergies Medications aspirin [...] Comments Blood Pressure 100/70 10/23/2020 11:23 AM GREEN CHAIN OFF BEARER Pulse 72 10/23/2020 11:23 AM GREEN CHAIN OFF BEARER Temperature 36.7 C (98 F) 10/23/2020 11:23 AM GREEN CHAIN OFF BEARER Respiratory Rate - - Oxygen Saturation - - Inhaled Oxygen Concentration - - Weight 181 kg (400 lb) 10/23/2020 11:23 AM GREEN CHAIN OFF BEARER Height 175.3 cm (5' 9) 10/23/2020 11:23 AM GREEN CHAIN OFF BEARER Body Mass Index 59.07 10/23/2020 11:23 AM GREEN CHAIN OFF BEARER Plan of Treatment Health Maintenance Due Date Last Done Comments Pneumococcal PPSV23/PCV13 65 + Years / Low and Medium Risk (1 of 2 - PCV) 2007 Influenza Vaccine (#1) 2025 [place] [address] Care Teams Synthetic Resin Operator Relationship Specialty Start Date End Date Jaya Dailey MD [address] [place] [address] PCP - General Family Medicine 10/21/20
--- OUTSIDE RECORDS SUMMARY | 2025-09-16 12:38 | XMS_ITS | Encounter Summary ---
Author Organization [facility] Healthcare Address [address] [place] [address] Care Team Providers Care Green End Department Supervisor Name Role Phone Jaya Dailey MD Primary Care Provider [phone] Abelardo Gastelum MD Unavailable [phone] Encounter Details Date Type Department Care Team (Late st Contact Info) Description 08/09/2023 Telephone [facility] Radiology [address] [place] [address] Sheree Vasquez, RN Social History Tobacco Use [...] often do you attend chur ch or baptist services? Never 07/28/2023 Do you belong to any clubs o r organizations such as judaism groups, unions, fraternal or athletic groups, or [...] place to sleep or slept in a snf (including now)? No 07/28/2023 Personal Safety Answer Date Recorded Have you ever been in or are you currently in a harmful physical or emotional relationship or is someone making you feel afraid or unsafe? 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 Gender Identity Not on file Sexual Orientation Not on file documented as of this encounter Functional Status * Question Answer Date of Assessment Author MAP (mmHg) 102 08/12/2023 12:10 PM CDT Sheree Bourne RN * [place] Fall Risk Question Answer Date of Assessment Author History of Falling 0 08/12/2023 10:53 AM CD Rupal العلي RN Secondary Diagnosis 0 08/12/2023 10:53 AM Rupal Earl RN Ambulatory Aids 0 08/12/2023 10:53 AM SHREYAST W Rupal minor RN Intravenous Therapy/Heparin/Saline Lock 20 08/12/2023 10:53 AM Rupal Bateman RN Gait/Transferring 0 08/12/2023 10:53 AM Rupal Bateman RN Mental Status 0 08/12/2023 10:53 AM CDT Rupal Kearney RN [place] Fall Risk Score (Score >= 45 places fall precaution order) 20 08/12/2023 10:53 AM Rupal Bateman RN Prior Fall Event (Autopopulated from EMR) None found 08/12/2023 10:53 AM Vinay Bateman RN * Alcohol Withdrawal BP Hierarchy Answer Date of Assessment Author 79 08/12/2023 10:52 AM Rupal Bateman RN documented as of this encounter Mental Status * Question Answer Entry Date Author Level of Consciousness Alert;Awake 10:52 AM Rupal Bateman RN Orientation Oriented X4 (person, place, time, situation) 08/12/2023 10:52 AM Rupal Bateman RN documented in this encounter Miscellaneous Notes * Telephone Encounter - Sheree Vasquez RN - 08/09/2023 4:20 PM CDT documented in this encounter Plan of Treatment Not on file documented as of this encounter Visit Diagnoses Not on filedocumented in this encounter Additional Health Concerns Infection Onset Date Last Indicated Resolved Time 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
--- OUTSIDE RECORDS SUMMARY | 2025-09-16 12:38 | XMS_ITS | Clinical Summary ---
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 panel inspector before breakfast Given at 6 am 30 [...] 09/23/2023 Assessment & Plan (09/23/2023 4:10 PM SALES REP): By hx suspect more gas/bloating Consider constipation [...] 08/01 Assessment & Plan (09/23/2023 4:09 PM SALES REP): Wound care following Still wrapped No active [...] 08/01/2023 Assessment & Plan (09/23/2023 4:09 PM SALES REP): Multifactorial Also obstructive Cont murillo Assessment & Plan (08/11/2023 8:25 PM CDT): Has catheter Staff to arrange urology fu for xchg Assessment & Plan (08/05/2023 4:24 PM CDT): Has murillo in place, hx of SAMANTA, unlikely to improve Assessment & Plan (08/01/2023 7:45 PM CDT): Cont spc Rt samanta Has 102 uro appt Encounter for examination for admission to [facility] 07/28/2023 Chronic atrial fibrillation 07/28/2023 Assessment [...] to obtain cardiac clearance but patients primary credit card clerk will not give d/t not seeing in [...] 04/28/2023 Assessment & Plan (11/16/2023 4:16 PM SALES REP): Multifactorial related to chronic illness and cauda [...] PM CDT): Cr at baseline. Continue to [facility]. Assessment & Plan (04/28/2023 3:58 PM CDT): Cmp ordered as follow up Nonsustained ventricular tachycardia 04/26/2023 Assessment & Plan (04/28/2023 3:56 PM CDT): Monitor for arrhythmia Acquired hypothyroidism 04/26/2023 Assessment & Plan (04/28/2023 3:57 PM CDT): Tsh ordered Hosp tsh reviewed Cont synthroid Macrocytic anemia 03/25/2023 Permanent atrial fibrillation 03/25/2023 Assessment & Plan (11/16/2023 4:16 PM SALES REP): Currently rate controlled. Continue metoprolol. Discussed with [...] 02/16/2023 Assessment & Plan (11/16/2023 4:16 PM SALES REP): Currently compensated. Continue metolazone metoprolol. Assessment & [...] (07/04/2023 2:40 PM CDT): Was able to insurance claims examiner parallal bars with tx. Slow but consistent progress. Continue to [facility]. Assessment & Plan (06/27/2023 11:00 AM [...] (01/30/2019): Added automatically from request for surgery [id number] Diabetic polyneuropathy asso ciated with type 2 [...] lopressor Assessment & Plan (01/05/2018 11:41 AM SALES REP): Controlled. Continue with metoprolol. Monitor blood pressure [...] lispro Assessment & Plan (01/05/2018 11:42 AM SALES REP): Insulin pump being held for now. SSI [...] CDT): Brought this to the attention of manager trainee Halina who will ask for an air [...] 03/25/2023 Assessment & Plan (01/05/2018 11:39 AM SALES REP): Troponin peaked at 35.95. EKG as noted above. Cardiology has been consulted and pt is now s/p cardiac catheterization with possible plans to re-enter for further intervention. ASA, Brillinta, Bb, Sony, and Statin ordered. Continue with telemetry. Smoking addiction 01/05/2018 03/25/2023 Assessment & Plan (01/05/2018 11:42 AM SALES REP): Counseled on cessation. Morbid obesity 01/05/2018 03/25/2023 Assessment & Plan (01/05/2018 11:44 AM SALES REP): Pt reports a weight loss of 30+ pounds but has recently began to gain the weight back. Encouraged to begin a weight loss regimen. 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 04/28/2023 Encounters Date Type Department Care Team Description 09/04/2025 Orders Only [facility] Cardiology [address] [place] [address] Hong Vivas MD 09/03/2025 Telephone [facility] Cardiology [address], [place] [address] Sonal Sarabia NP from Last 3 Months Immunizations Immunization Administration [...] ST ENT PLACEMENT 11/07/2018 - 11/06/2019 and 2018 SHOULDER ARTHROSCOPY Left PORT PLACEMENT CHEST >5 [...] wound of left heel see pics in [facility] from end of april 2023 Polyneuropathy Encounter for wound care 05/23/23 patient has puncture wound right lateral chest and DTI left heel per Raquel [place] [facility] [place] . Pneumonia 02/2023 see [...] week 07/28/2023 How often do you attend [facility] [employer] or mu-ism services? Never 07/28/2023 Do you belong to any clubs o r organizations such as protestant groups, unions, fraternal or athletic groups, or [...] No 07/28/2023 Housing Stability Vital Sign Answer Sbeas e Recorded In the last 12 months, [...] on file Legal Sex Male 3:19 AM SALES REP Gender Identity Not on file Sexual Orientation [...] Fall Risk Assessment 08/12/2024 08/12/2023 Covid-19 Vaccine (2024- 6 season) 2025 11/13/2021, 02/09/2021, 01/19/2021 Influenza Vaccine (#1) 2025 Lipid Panel 08/08/2025 08/08/2024, 03/08, 06/22/2021, Additional history exists DTaP/Tdap/Td Vaccine (2 - Td or Tdap) 01/28/2034 01/29/2024 Abdominal Aortic Aneurysm (A AA) Screen Completed 02/14/2023 Medical Devices Implanted Type Area Rail Switch Operator Device Identifier Shelf Expiration Date Model / Serial / Lot [employer] Zbigniew [id number] Synergy 2.5mm 24mm 144cm Radiopaque 1 Access Port Inflation Lumen - [id number] Implanted:Qty: 1 on 02/22/2019 by Brock Carr MD at [facility] Stent N/A: Heart [employer] Zbigniew 11/13/2020 [id number] / / [id number] [employer] Zbigniew [id number] Synergy 3mm 20mm 144cm Radiopaque 1 Access Port Inflation Lumen - [id number] Implanted:Qty: 1 on 02/22/2019 by Brock Carr MD at [facility] Stent N/A: Heart [employer] Zbigniew 11/08/2020 [id number] / / [id number] Insulin Pump Abdomen System Coronary Stent Synergy Pebax Everolimus Eluting [place] Chromium Plga L16 Mm L144 Cm Od2.5 Mm Radiopaque 1 Access Port Inflation Lumen Accepts .014 In Guidewire - [id number] Implanted:Qty: 1 on 01/04/2018 by Ofelia Ruiz MD at [facility] [email or web address] 09/19/2018 [id number] / / [id number] System Coronary Stent Synergy Pebax Everolimus Eluting [place] Chromium Plga L20 Mm L144 Cm Od2.5 Mm Radiopaque 1 Access Port Inflation Lumen Accepts .014 In Guidewire - [id number] Implanted:Qty: 1 on 01/04/2018 by Ofelia Ruiz MD at [facility] [employer] Zbigniew 10/18/2018 [id number] / / [id number] Daig Zbigniew/[employer] [id number] Angio-Seal Vip Bondek-Plus 6fr .035in 70cm Hemostatic Latex Free - [id number] Implanted:Qty: 1 on 02/22/2019 by Brock Carr MD at [facility] Right: Groin Daig Zbigniew/[employer] 10/06/2019 [id number] / / [id number] Procedures Procedure Name Priority Date/Time Associated Diagnosis Comments CARDIOLOGY DOCUMENT SCAN Routine 09/01/2025 8:58 AM CDT POCT LIPID PANEL Routine 08/08/2024 10:5 4 AM CDT Lipid screening EGFR Routine 07/29/2023 7:15 AM CDT HEMOGLOBIN A1C Routine 05/02/2023 8:[address] ABDOMEN PELVIS WO CONTRAST ED 02/14/2023 10:33 AM CDT ALBUMIN CREATININE RATIO, URINE Routine 11/06/2019 7:26 AM SALES REP from Last 3 Months or Most Recently Relevant to Health Maintenance Results * Cardiology Document Scan (09/01/2025 8:58 AM CDT) Anatomical Region Laterality Modality Other us Hong Vivas MD CV CARDIAC SERVICES PROC EDURES Final Result * POCT lipid panel (08/08/2024 10:54 AM [...] 7:15 AM CDT 07/29/2023 7:27 AM CDT us Martha Hong MD LAB BLOOD ORDERABLES Stephanie l Result Performing Organization Address [facility]/ZIP Co de Phone Number [address] [place] [address] * (ABNORMAL) Hemoglobin A1c (05/02/2023 8:35 AM CDT) [facility] Hgb A1C 5.7(H) 4.0 - 5.6 % [facility] Comment:Testing performed by : [address] [address] Estimated Average Glucose 117 mg/dL [facility] Comment: The ADA recommends reporting an estimated Average Glucose (eAG) with all Hemoglobin A1c results using the equation derived from a study of 507 normal and diabetic adults. Minority populations were underrepresented and children were not included. (Diabetes Care 31:0008-5611, 2008). The eAG is not equivalent to a fasting glucose. Testing performed by: [address] [address] Blood 05/02/2023 8:35 AM CDT 05/02/2023 9:24 AM CDT us Bennie Oliveira MD LAB BLOOD ORDERABLES Final R esult Performing Organization Address [facility] Co de Phone Number [address] Department [place] [address] * CT Abdomen Pelvis WO Contrast (02/14/2023 [...] Harrison Islas M.D. KR T: Report ID: [id number] Reading Location: [id number] Procedure Note Harrison Islas MD - 02/14/2023 [...] by Harrison Islas M.D. T: Report ID: [id number] Reading Location: [place] [address] Nico Roy [address] IMG [address] PROCEDURES Final Res ult * (ABNORMAL) Albumin Creatinine Ratio, Urine (11/06/2019 7:26 AM SALES REP) Creatinine, ur 57 20 - 320 mg/dL [facility] [place] Microalbumin, ur 6.4 See Note: mg/dL [facility] [place] Comment: Reference Range: Reference Range Not established Microalbumin/creat ratio 112(H) <30 mcg/mg creat [facility] [place] Comment: The ADA defines abnormalities in albumin excretion as follows: Category Result (mcg/mg creatinine) Normal <30 Microalbuminuria 30-299 Clinical albuminuria > OR = 300 The ADA recommends that at least two of three specimens collected within a 3-6 month period be abnormal before considering a patient to be within a diagnostic category. 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/2023 07/17/2023 MDR gram neg/ESBL 07/17/2023 07/17/2023 Insurance [facility] MEDICARE ADVANTAGE MEDICARE [employer] [place] Advance Directives For more information, please contact: [phone] Documents on File Type Date Recorded 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
--- OUTSIDE RECORDS SUMMARY | 2025-09-16 12:38 | XMS_ITS | Clinical Summary ---
Author Organization [facility] Address [address] [place] [id number] Care Team Providers Care Pattern Attendant Name Role Phone Jaya Dailey MD Primary Care Provider [phone] Encounters Date Type Department Care Team Description 07/19/2025 Telephone [facility] - [address] [place] [address] Garett Rubin MD Reschedule from [...] st Contact Info) Description 10/30/2025 10:40 AM WHISTLE PUNK Office Visit [facility] Multispecialty Care - [facility] [address] [facility], [address] [place] [id number] Garett Rubin MD [address] [place] [address] Health Maintenance Due Date Last Done Comments Colorectal Cancer Screening Colonoscopy (10 Years) 1957 Hepatitis C 1975 DTaP, Tdap and Td Vaccines ( 1 - Tdap) 1976 Pneumococcal Vaccine: 50+ Ye ars (1 of 1 - PCV) 2007 Zoster Vaccines (1 of 2) 2007 Annual Medicare Wellness Visit 2022 PHQ-2 (Physician [place]) 11/07/2024 COVID-19 Vaccine (1 - 2024-2 6 [...] patient's age to complete this topic Insurance [facility] UHC MEDICARE Care Teams Pattern Attendant Relationship Specialty Start Date End Date Jaya Dailey MD [address] [address] PCP - General FAMILY PRACTICE 06/18/25
--- OUTSIDE RECORDS SUMMARY | 2025-09-16 12:38 | XMS_ITS | Clinical Summary ---
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
--- OUTSIDE RECORDS SUMMARY | 2025-09-16 12:38 | XMS_ITS | Encounter Summary ---
Author Organization [facility] Healthcare Address [address] [place] [address] Care Team Providers Care Sign Language Translator Name Role Phone Jaya Dailey MD Primary Care Provider + [phone] Abelardo Gastelum MD Unavailable Encounter Details Date Type Department Care Team (Late st Contact Info) Description 07/14/[address] [facility] Radiology [address] [place] [address] Rachael Rao RN Social History Tobacco Use [...] often do you attend chur ch or tenriism services? Never 07/18/2023 Do you belong to any clubs o r organizations such as anabaptist groups, unions, fraternal or athletic groups, or [...] place to sleep or slept in a retirement (including now)? No 07/18/2023 Sex and Gender Information Value Date Recorded Sex Assigned at Not on file Legal Sex Male 3:19 AM ORAL PATHOLOGIST Gender Identity Not on file Sexual Orientation Not on file documented as of this encounter Functional Status * Difference in Last Two Abhinav Scores Answer Date of Assessment Author -2 07/17/2023 7:45 PM SHREYAST Yohan Cook RN * Maloney Fall Risk Question Answer Date of Assessment Author History of Falling 25 07/17/2023 7:45 PM SHREYAST George Cook RN Secondary Diagnosis 15 07/17/2023 7:45 PM CD T George Cook RN Ambulatory Aids 15 07/17/2023 7:45 PM CDT George Kiran RN Intravenous Therapy/Heparin/Saline Lock 20 07/17/2023 7:45 PM CDT Yohan Cook RN Gait/Transferring 10 07/17/2023 7:45 PM CDT George Cook RN Mental Status 0 07/17/2023 7:45 PM CDT George White RN Maloney Fall Risk Score (Score >= 45 places fall precaution order) 85 07/17/2023 7:45 PM CDT George Cook RN Prior Fall Event (Autopopulated from EMR) None found 07/17/2023 7:45 PM CDT Gabriela Coko RN * Abhinav Scale Question Answer Date of Assessment Author Sensory Perceptions 3 07/17/2023 7:45 PM CD T George Cook, LUIS ANGEL Moisture 3 07/17/2023 7:45 PM CDT George Cook RN Activity 2 07/17/2023 7:45 PM CDT George Cook RN Mobility 2 07/17/2023 7:45 PM CDT George Cook RN Nutrition 3 07/17/2023 7:45 PM CDT George Cook RN Friction and Shear 2 07/17/2023 7:45 PM CDT George Cook RN Abhinav Scale Score 15 07/17/2023 7:45 PM CDT George Cook RN * MAP (mmHg) Answer Date of Assessment Author 92 07/17/2023 3:51 PM CDT Lisy Chiang RN * Question Answer Date of Assessment Author BP Location Right arm 07/17/2023 8:00 PM CDT Ridge Panda LPN BP Method Automatic 07/17/2023 8:00 PM CDT Ridge Panda LPN * Fall Risk Interventions Question Answer Date of Assessment Author All Low Fall Interventions Applied Yes 07/17/2023 7:45 PM CDT George Cook RN All Moderate Fall Interventions Applied Yes 07/17/2023 7:45 PM Darren Dye RN All High Fall Risk Interventions Applied Yes 07/17/2023 7:45 PM Darren Dye RN Additional Interventions Applied Bed/chair alarm 07/17/2023 7:45 PM George Dye RN * B.M.A.T. - Bedside Mobility Assessment Tool for Nurses Question Answer Date of Assessment Author Is patient able to participate in the BMAT? Yes 07/17/2023 6:05 PM Thomas Gill RN BMAT Level Level 1 - Red 07/17/2023 6:05 PM CDT Lisy Bowman RN * Question Answer Date of Assessment Author 1. Has the patient self-reported, presented with clinical signs of, or have a documented history of any of the following within the past 30 days? No 07/17/2023 3:00 PM Allison Gill RN * Question Answer Date of Assessment Author Is the patient being treated today because it is known or suspected that they prepared, started, or tried to end their life? No 07/17/2023 3:00 PM Allison Gill RN * Question Answer Date of Assessment Author 1. In the past month, have you wished you were or that you could go to sleep and not wake up? Yes 07/17/2023 4:20 PM Allison Gill RN 2. In the past month, have you actually had any thoughts of killing yourself? No 07/17/2023 4:20 PM Randy Gill RN 6. Have you ever done anything, started to do anything, or prepared to do anything to end your life? No 07/17/2023 4:20 PM Amilcar Gill RN * Suicide Risk Level Answer Date of Assessment Author Low 07/17/2023 4:20 PM Lisy Gill RN * Self-Injurious Risk Level Answer Date of Assessment Author No risk level 07/17/2023 3:00 PM Lisy Gill RN * Alcohol Withdrawal BP Hierarchy Answer Date of Assessment Author 83 07/17/2023 8:00 PM CDT Darrel Brooks LPN * Pressure Injury Prevention Question Answer Date of Assessment Author Pressure Ulcer Prevention Interventions Keep skin clean and dry (Sensory Perception/Moisture);Yeison ce on pressure redistribution surface (Sensory Perception/Activity/Mobi lity);Establish turning schedule (Sensory Perception/Activity/Mobi lity);Educate caregivers regarding pressure ulcer prevention (Sensory Perception);Float Heels (Activity/Mobility);Do not elevate HOB >30 degrees except for meals and when medically necessary (Mobility);Use pressure-relief cushions in chair (Mobility) 07/17/2023 7:45 PM CDT George Cook RN 2 Nurse Skin Assessment Rebecca RN, Akilah RN 023 3:00 PM CDT Lisy Chiang RN Protective Foam Dressing Location Coccyx 07/17/2023 7:45 PM SHREYAST George Cook RN Special Mattress Pressure relief overlay 023 7:45 PM CDT George Cook RN * Fall Risk Assessment Tool - MEDFRAT Question Answer Date of Assessment Author Prior Fall Event (Autopopulated from EMR) None found 07/17/2023 7:52 AM SHREYAST Gonzalo Merrill RN History of falling in last 3 months, including since admission 1 07/17/2023 7:52 AM Gonzalo Coy RN Confusion or disorientation 0 07/17/2023 7:52 AM Gonzalo Coy RN Intoxicated or sedated 0 7:52 AM SHREYAST Gonzalo Merrill RN Impaired gait 1 07/17/2023 7:52 AM SHREYAST Gonzalo Merrill RN Mobility assist device used 1 07/17/2023 7:52 AM Gonzalo Coy RN Altered elimination 0 07/17/2023 7 :52 AM SHREYAST Gonzalo Merrill RN Fall risk score: (1-2 low risk), (3-4 moderate risk), (5 or more high risk) 3 07/17/2023 7:52 AM Gonzalo Coy RN Interventions - GENERAL USE as needed patient/family education 07/17/2023 7:52 AM SHREYAST Gonzalo Merrill RN Interventions MODERATE Risk patient/family education 07/17/2023 7:52 AM CDT Gonzalo Merrill RN * Integumentary Question Answer Date of Assessment Author Skin Color Appropriate for ethnicity 07/17/2023 7:45 PM CDT George Cook RN Skin Condition/Temp Warm;Dry 07/17/2023 7 :45 PM CDT George Cook RN Skin Integrity Excoriation;Other (Comment) 07/17/2023 7:45 PM CDT George Cook RN Skin Turgor Non-tenting 07/17/2023 7:45 PM CDT George Cook RN Integumentary Additional Assessments Yes-Abhinav 07/17/2023 7:45 PM CDT George Cook RN Integumentary (WDL) X 07/17/2023 7 :45 PM CDT George Cook RN Skin Location groin/abdominal exoriation 07/17/2023 7:45 PM CDT George Cook RN * Question Answer Date of Assessment Author RLE Edema +1 07/17/2023 7:45 PM CDT George Cook RN LLE Edema +2 07/17/2023 7:45 PM CDT George Cook RN Edema Right lower extremit y;Left lower extremity 07/17/2023 3:00 PM CDT Lisy Chiang, LUIS ANGEL * Question Answer Date of Assessment Author Mood Depressed 07/17/2023 3:00 PM CDT Lisy Nelson RN * Question Answer Date of Assessment Author Percent Meal Eaten (%) 100 07/17/2023 6:05 PM CDT Lilian Lopez * Question Answer Date of Assessment Author BP Location Right arm 07/17/2023 8:00 PM CDT Ridge Panda LPN BP Method Automatic 07/17/2023 8:00 PM CDT Ridge Panda LPN * Fall Risk Interventions Question Answer Date of Assessment Author All Low Fall Interventions Applied Yes 07/17/2023 7:45 PM CDT George Cook RN All Moderate Fall Interventions Applied Yes 07/17/2023 7:45 PM Darren Dye RN All High Fall Risk Interventions Applied Yes 07/17/2023 7:45 PM SHREYAST Darren Cook RN Additional Interventions Applied Bed/chair alarm 07/17/2023 7:45 PM SHREYAST George Cook RN * Question Answer Date of Assessment Author Hygiene Level of Assistance Dependent 07/17/2023 2:51 PM CDT Lilian Lopez Toileting: Assistance with Perineal hygiene;Clothing management up 07/17/2023 2:51 PM CDT Lilian Lopez Perineal Care Shoemaker Care 07/17/2023 8:00 PM SHREYAST George Cook RN Bath Bathed/showered with chlorhexidine (CHG) 07/17/2023 2:51 PM CDT Lilian Lopez * ADL Screening Question Answer Date of Assessment Author Patient's Vision Adequate to Safely Complete Daily Activities Yes 07/17/2023 3:00 PM SHREYAST Allison Chiang RN Patient's Judgement Adequate to Safely Complete Daily Activities Yes 07/17/2023 3:[address] richard Chiang RN Patient's Memory Adequate to Safely Complete Daily Activities Yes 07/17/2023 3:00 PM SHREYAST Allison Chiang RN Patient Able to Express Needs/Desires Yes 07/17/2023 3:00 PM SHREYAST Allison Chiang RN Dressing Dependent 07/17/2023 3:00 PM Lisy Weaver, RN Grooming Dependent 07/17/2023 3:00 PM Lisy Weaver, RN Feeding Independent 07/17/2023 3:00 PM Lisy Weaver, RN Bathing Dependent 07/17/2023 3:00 PM Lisy Weaver, RN Toileting Dependent 07/17/2023 3:00 PM Lisy Weaver, RN In/Out Bed Dependent 07/17/2023 3:00 PM Lisy Weaver, RN Walks in Home Dependent 07/17/2023 3:00 PM CDT Lisy Bowman, LUIS ANGEL Weakness of Legs Both 07/17/2023 3:00 PM CDT Lisy Traylor, LUIS ANGEL Weakness of Arms/Hands Both 07/17/2023 3:00 PM CDT Lisy Chiang, LUIS ANGEL Hearing - Right Ear Functional 07/17/2023 3:00 PM CD T Lisy Chiang, LUIS ANGEL Hearing - Left Ear Functional 07/17/2023 3:00 PM CDT Lisy Chiang, RN Dominant hand? Right 07/17/2023 3:00 PM CDT Lisy Fraire, RN Decline in ADLs in last 2 weeks? No 07/17/2023 3:00 PM SHREYAST Allison Chiang, LUIS ANGEL * Therapy Consults Question Answer Date of Assessment Author PT Evaluation Needed 1 07/17/2023 3:00 PM Lisy Balderrama, LUIS ANGEL OT Evaluation Needed 1 07/17/2023 3:00 PM Lisy Balderrama, LUIS ANGEL OFFICE MACHINE REPAIR SHOP SUPERVISOR Evaluation Needed 2 07/17/2023 3:00 PM Lisy Gill, RN * Assistive Devices Question Answer Date of Assessment Author Assistive Devices/DME CPAP/BiPAP;Eyeglas se s;Motorized wheelchair;Motorized scooter 07/17/2023 3:00 PM SHREYAST Lisy Chiang, LUIS ANGEL * RN Oversight of Sitter Question Answer Date of Assessment Author RN Safety Check No unsafe behaviors observed, safe environment maintained 07/17/2023 6:05 PM Penny Wiggins RN Sitter Discontinued 07/17/2023 6:05 PM CDT Penny Chacon RN Sitter Type Suicide 07/17/2023 6:05 PM Penny Parra RN documented as of this encounter Mental Status * Question Answer Entry Date Author Level of Consciousness Awake;Alert 7:45 PM George Dye RN Orientation Oriented X4 (person, place, time, situation) 07/17/2023 7:45 PM George Dye RN * Neuro (WDL) Answer Entry Date Author WDL 07/17/2023 7:55 AM CDT Faustino Merrill, RN * Question Answer Entry Date Author Neuro ([facility]) X 07/17/2023 7:45 PM CDT George Cook, LUIS ANGEL documented in this encounter Plan of Treatment Not on file documented as of this encounter Visit Diagnoses Not on filedocumented in this encounter Additional Health Concerns Infection Onset Date Last Indicated Resolved Time MRSA 02/14/2023 07/17/2023 01/13/2024 3:05 AM ORAL PATHOLOGIST CRE 07/17/2023 07/17/2023 MDR gram neg/ESBL 07/17/2023 07/17/2023 documented as of this encounter Care Teams Sign Language Translator Relationship Specialty Start Date End Date Jaya Dailey MD PCP - General Family Medicine 01/18/19 Abelardo Gastelum MD [address] [place] [address] [place] [address] Orthopedic Surgery 05/09/23 documented as of this encounter
--- OUTSIDE RECORDS SUMMARY | 2025-09-16 12:38 | XMS_ITS | Encounter Summary ---
Author Organization [facility] Address [address] [place] [address] Care Team Providers Care Electric Furnace Operator Name Role Phone Lewis Chopra MD Primary Care Provider [phone] Encounter Details Date Type Department Care Team (Late st Contact Info) Description 03/16/2023 Telephone [facility] - Infectious Disease [address] [facility] [place] [address] Harrison Titus MD [facility] IN[place] [address] Social History Tobacco Use Types [...] and heating? Not hard at all 02/16/2023 [facility] [place] of Occupat ional Health - Occupational Stress [...] slept in a retirement (including now)? 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 ANTIBIOTIC THERAPY appt rescheduled to 04/12/2023 because he will have NO transportation. Schedule conflict. The Rehab center is [facility], , contact is Amaya over scheduling and transportation. Give her a call to reschedule and with any questions. Thanks. Patient Call Back number: [phone] documented in this encounter Plan of Treatment Not on file documented as of this encounter Visit Diagnoses Not on filedocumented in this encounter Additional Health Concerns Infection Onset Date Last Indicated Resolved Time MRSA 02/16/2023 02/23/2023 documented as of this encounter Care Teams Electric Furnace Operator Relationship Specialty Start Date End Date Lewis Chopra MD [address] [place] [id number] PCP - General 02/17/23 documented as of this encounter
--- OUTSIDE RECORDS SUMMARY | 2025-09-16 12:38 | XMS_ITS | Clinical Summary ---
Author Organization [email or web address] Address [address] [place] [address] Care Team Providers Care Pharmacy Student Name Role Phone Lewis Chopra MD Primary Care Provider [phone] Source Comments [email or web address],non-owned Affiliates and Associated Physician Practices is amultiple site organization consisting of ambulatory clinics and hospital sitesin [place], [place], [place] and [place]. This disclosure is being madepursuant to the Care Everywhere program and may not contain all information available regarding this patient. 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 Gender Identity Not on file Sexual Orientation [...] DIABETES-FOOT EXAM WITH MONOFILAMENT 02/16/2023 DIABETES-HGB A1C 05/18/2023 02/16/2023 DIABETES-SERUM CREATININE 03/10/20242022, 03/09/2023, 03/08/2023, Additional history exists DEPRESSION SCREENING 11/07/2024 DIABETES [...] 7 - 26 mg/dL 03/10/2023 5:51 AM [facility] Creatinine 1.84(H) 0.71 - 1.16 mg/dL 03/10/2023 5:51 AM [facility] Sodium 139 136 - 145 mmol/L 03/10/2023 5:51 AM [facility] Potassium 4.5 3.5 - 4.5 mmol/L 03/10/2023 5:51 AM [facility] Chloride 108(H) 98 - 107 mmol/L 03/10/2023 5:51 AM [facility] CO2 26 22 - 29 mmol/L 03/10/2023 5:51 AM [facility] Glucose 103 70 - 115 mg/dL 03/10/2023 5:51 AM [facility] Albumin 3.0(L) 3.4 - 5.0 g/dL 03/10/2023 5:51 AM [facility] Calcium 8.6 8.4 - 10.2 mg/dL 03/10/2023 5:51 AM [facility] Phosphorus 3.2 2.8 - 5.1 mg/dL 03/10/2023 5:51 AM [facility] Anion Gap 10 8 - 18 03/10/2023 5:51 AM [facility] BUN/Creatinine Ratio 19 7 - 23 03/10/2023 5:51 AM CDT [facility] Osmolality Calculated 296 270 - 300 mOsm/kg 03/10/2023 5:51 AM CDT [facility] eGFR by CKD-EPI 40(L) >=90 mL/min/1.7 3 m2 03/10/2023 5:51 AM CDT [facility] Blood BLOOD SPECIMEN / Unknown Line Draw / Unknown 03/10/2023 5:11 AM CDT 03/10/2023 5:24 AM CDT Mehul Coronado MD LAB - CHEMISTRY ORDERAB LES Final Result Performing Organization Address City/[facility]/ZIP Co de Phone Number [address] [address], [facility] [phone] * HEPATITIS C AB SCREEN RFLX NAAT QUANT (02/18/2023 3:20 AM CDT) Pathologist [facility] Hepatitis C Antibody Non-react abby Non-reac tive 02/18/2023 7:22 AM CDT [facility] Comment:Hepatitis C Antibody screen indicates no [...] 3:20 AM CDT 02/18/2023 3:26 AM CDT us Mehul Coronado MD LAB - CHEMISTRY ORDERAB LES Final Result [address] [address], [facility] [phone] * (ABNORMAL) PROTEIN CREATININE RATIO URINE RANDOM PNL (02/16/2023 7:38 AM CDT) Protein Urine 164 Not Established mg/dL 02/16/2023 8:03 AM CDT [facility] Creatinine Urine 30 Not Established mg/dL 02/16/2023 8:03 AM CDT [facility] Protein/Creati nine Ratio Urine 5.47(H) <0.10 02/16/2023 8:03 AM CDT [facility] Urine URINE SPECIMEN OBTAINED BY CLEAN CATCH PROCEDURE / Unknown Collection / Unknown 02/16/2023 7:38 AM CDT 02/16/2023 7:41 AM CDT us Mehul Coronado MD LAB - URINE CHEMISTRY O RDERABLES Final Result Performing Organization Address City/[facility]/ZIP Co de Phone Number [address] [address], [facility] [phone] * (ABNORMAL) HEMOGLOBIN A1C (02/16/2023 1:23 AM CDT) Hemoglobin A1c 9.6(H) <=5.6 % 02/16/2023 9:35 AM T [facility] Estimated Average Glucose 229 mg/dL 02/16/2023 9:35 AM T [facility] Comment: HbA1c Interpretation: Normal : < 5.7% Pre-diabetes: 5.7-6.4% Diabetes: Equal to or greater than 6.5% Test results diagnostic of diabetes should be repeated for confirmation. Treatment target values recommended by ADA and other clinical organizations should be used to evaluate metabolic control in patients. Reference: [place] Diabetes Association, Standards of Care in Diabetes [...] ORDERAB LES Final Result Performing Organization Address [facility]/ZIP Co de Phone Number [facility] [address] [place] [phone] [phone] from Last 3 Months or Most Recently Relevant to Health Maintenance Additional Health Concerns Infection Onset Date Last Indicated MRSA 02/16/2023 02/23/2023 Insurance MEDICARE MEDICARE Advance Directives * Full Code (Latest Code Status on File) Date Activated Date Inactivated Comments 02/16/2023 12:51 AM 03/10/2023 11:28 PM Care Teams Pharmacy Student Relationship Specialty Start Date End Date eLwis Chopra MD [address] [place] [address] PCP - General 02/17/23
--- OUTSIDE RECORDS SUMMARY | 2025-09-16 14:29 | XMS_ITS | Clinical Summary ---
Author Organization [facility] Care Team Providers Care Regulatory Agency Director Name Role Phone Unavailable Primary Care Provider Unavailabl e Social History Tobacco Use Types Packs/Day Years Used Date Smoking Tobacco: Never Assessed Sex and Gender Information Value Date Recorded Sex Assigned at Not on file Legal Sex Male 3:22 PM BIOLOGY ADJUNCT INSTRUCTOR Gender Identity Not on file Sexual [...]
--- OUTSIDE RECORDS SUMMARY | 2025-09-16 14:29 | XMS_ITS | Clinical Summary ---
Author Organization [facility] Address [address] [place] [address] Care Team Providers Care Field Supervisor Name Role Phone Jaya Dailey MD Primary Care Provider [phone] Encounters Date Type Department Care Team Description 07/19/2025 Telephone [facility] Medical [facility] - [address] [place] [address] Garett Rubin MD Reschedule from [...] st Contact Info) Description 10/30/2025 10:40 AM PRODUCT STRATEGY DIRECTOR Office Visit [facility] Medical [facility] Multispecialty Care - [facility] [address] [facility], [address] [place] [id number] Garett Rubin MD [address] [place] [address] Health Maintenance Due Date Last Done Comments Colorectal Cancer Screening Colonoscopy (10 Years) 1957 Hepatitis C 1975 DTaP, Tdap and Td Vaccines ( 1 - Tdap) 1976 Pneumococcal Vaccine: 50+ Ye ars (1 of 1 - PCV) 2007 Zoster Vaccines (1 of 2) 2007 Annual Medicare Wellness Visit 2022 PHQ-2 (Physician [employer] [place]) 11/07/2024 COVID-19 Vaccine (1 - 2024-2 6 [...] patient's age to complete this topic Insurance [facility] UHC MEDICARE Care Teams Field Supervisor Relationship Specialty Start Date End Date Jaya Dailey MD [address] [address] PCP - General FAMILY PRACTICE 06/18/25
--- OUTSIDE RECORDS SUMMARY | 2025-09-16 14:29 | XMS_ITS | Clinical Summary ---
Author Organization [facility] Address [address] [place] [address] Phone Care Team Providers Care Plumber Apprentice Name Role Phone Jaya Dailey MD Primary Care Provider [phone] Allergies No known active allergies Medications aspirin [...] Comments Blood Pressure 100/70 10/23/2020 11:23 AM RN DERMATOLOGY Pulse 72 10/23/2020 11:23 AM RN DERMATOLOGY Temperature 36.7 C (98 F) 10/23/2020 11:23 AM RN DERMATOLOGY Respiratory Rate - - Oxygen Saturation - - Inhaled Oxygen Concentration - - Weight 181 kg (400 lb) 10/23/2020 11:23 AM RN DERMATOLOGY Height 175.3 cm (5' 9) 10/23/2020 11:23 AM RN DERMATOLOGY Body Mass Index 59.07 10/23/2020 11:23 AM RN DERMATOLOGY Plan of Treatment Health Maintenance Due Date Last Done Comments Pneumococcal PPSV23/PCV13 65 + Years / Low and Medium Risk (1 of 2 - PCV) 2007 Influenza Vaccine (#1) 2025 Insurance [employer] Care Teams Plumber Apprentice Relationship Specialty Start Date End Date Jaya Dailey MD [address] [place] [address] PCP - General Family Medicine 10/21/20
--- OUTSIDE RECORDS SUMMARY | 2025-09-16 14:29 | XMS_ITS | Encounter Summary ---
Author Organization [facility] Healthcare Address [address] [place] [address] Care Team Providers Care Industrial Electrician Journeyman Name Role Phone Jaya Dailey MD Primary Care Provider + [phone] Abelardo Gastelum MD Unavailable [phone] Encounter Details Date Type Department Care Team (Late st Contact Info) Description 07/14/2023 Telephone [facility] Radiology [address] [place] [address] Rachael Rao RN Social History Tobacco Use [...] often do you attend chur ch or zoroastrian services? Never 07/18/2023 Do you belong to any clubs o r organizations such as denominational groups, unions, fraternal or athletic groups, or [...] place to sleep or slept in a jail (including now)? No 07/18/2023 Sex and Gender Information Value Date Recorded Sex Assigned at Not on file Legal Sex Male 3:19 AM CORRECTIONS CORPORAL Gender Identity Not on file Sexual Orientation [...] None found 07/17/2023 7:45 PM CDT Gabriela Cook RN * Abhinav Scale Question Answer Date [...] of Assessment Author Low 07/17/2023 4:20 PM Lsiy Gill RN * Self-Injurious Risk Level Answer [...] 07/17/2023 3:00 PM Lisy Balderrama, LUIS ANGEL SERVICES EXECUTIVE Evaluation Needed 2 07/17/2023 3:00 PM Lisy [...] * Question Answer Entry Date Author Neuro ([facility]) X 07/17/2023 7:45 PM CDT George Cook, LUIS ANGEL documented in this encounter Plan of Treatment Not on file documented as of this encounter Visit Diagnoses Not on filedocumented in this encounter Additional Health Concerns Infection Onset Date Last Indicated Resolved Time MRSA 02/14/2023 07/17/2023 01/13/2024 3:05 AM CORRECTIONS CORPORAL CRE 07/17/2023 07/17/2023 MDR gram neg/ESBL 07/17/2023 07/17/2023 documented as of this encounter Care Teams Industrial Electrician Journeyman Relationship Specialty Start Date End Date Jaya Dailey MD PCP - General Family Medicine 01/18/19 Abelardo Gastelum MD [address] [place] [address] DE[place] [address] Orthopedic Surgery 05/09/23 documented as of this encounter
--- OUTSIDE RECORDS SUMMARY | 2025-09-16 14:29 | XMS_ITS | Clinical Summary ---
Author Organization [facility] [employer] Address [address] [place] [address] Care Team Providers Care Tool Distributor Name Role Phone Lewis Chopra MD Primary Care Provider [phone] Source Comments [employer],non-owned Affiliates and Associated Physician Practices is amultiple site organization consisting of ambulatory clinics and hospital sitesin [place], [place], [place]. This disclosure is being madepursuant to the Care Everywhere program and may not contain all information available regarding this patient. 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 Gender Identity Not on file Sexual Orientation [...] 7 - 26 mg/dL 03/10/2023 5:51 AM [facility] Creatinine 1.84(H) 0.71 - 1.16 mg/dL 03/10/2023 5:51 AM [facility] Sodium 139 136 - 145 mmol/L 03/10/2023 5:51 AM [facility] Potassium 4.5 3.5 - 4.5 mmol/L 03/10/2023 5:51 AM [facility] Chloride 108(H) 98 - 107 mmol/L 03/10/2023 5:51 AM [facility] CO2 26 22 - 29 mmol/L 03/10/2023 5:51 AM [facility] Glucose 103 70 - 115 mg/dL 03/10/2023 5:51 AM [facility] Albumin 3.0(L) 3.4 - 5.0 g/dL 03/10/2023 5:51 AM [facility] Calcium 8.6 8.4 - 10.2 mg/dL 03/10/2023 5:51 AM [facility] Phosphorus 3.2 2.8 - 5.1 mg/dL 03/10/2023 5:51 AM [facility] Anion Gap 10 8 - 18 03/10/2023 5:51 AM [facility] HOSPITAL BUN/Creatinine Ratio 19 7 - 23 03/10/2023 5:51 AM CDT [facility] Osmolality Calculated 296 270 - 300 mOsm/kg 03/10/2023 5:51 AM CDT [facility] eGFR by CKD-EPI 40(L) >=90 mL/min/1.7 3 m2 03/10/2023 5:51 AM CDT [facility] Blood BLOOD SPECIMEN / Unknown Line Draw / Unknown 03/10/2023 5:11 AM CDT 03/10/2023 5:24 AM CDT Mehul Coronado MD LAB - CHEMISTRY ORDERAB LES Final Result Performing Organization Address City/[facility]/ZIP Co de Phone Number [address] [address], [facility] [phone] * HEPATITIS C AB SCREEN RFLX NAAT QUANT (02/18/2023 3:20 AM CDT) Pathologist [facility] Hepatitis C Antibody Non-react abby Non-reac tive 02/18/2023 7:22 AM CDT [facility] Comment:Hepatitis C Antibody screen indicates no [...] LAB - CHEMISTRY ORDERAB LES Final Result [address] [address], [facility] [phone] * (ABNORMAL) PROTEIN CREATININE RATIO URINE RANDOM PNL (02/16/2023 7:38 AM CDT) Protein Urine 164 Not Established mg/dL 02/16/2023 8:03 AM CDT [facility] Creatinine Urine 30 Not Established mg/dL 02/16/2023 8:03 AM CDT [facility] Protein/Creati nine Ratio Urine 5.47(H) <0.10 02/16/2023 8:03 AM CDT [facility] Urine URINE SPECIMEN OBTAINED BY CLEAN CATCH PROCEDURE / Unknown Collection / Unknown 02/16/2023 7:38 AM CDT 02/16/2023 7:41 AM CDT us Mehul Coronado MD LAB - URINE CHEMISTRY O RDERABLES Final Result Performing Organization Address City/[facility]/ZIP Co de Phone Number [address] [address], [employer] [phone] * (ABNORMAL) HEMOGLOBIN A1C (02/16/2023 1:23 AM CDT) Hemoglobin A1c 9.6(H) <=5.6 % 02/16/2023 9:35 AM T [facility] Estimated Average Glucose 229 mg/dL 02/16/2023 9:35 AM T [facility] Comment: HbA1c Interpretation: Normal : < 5.7% Pre-diabetes: 5.7-6.4% Diabetes: Equal to or greater than 6.5% Test results diagnostic of diabetes should be repeated for confirmation. Treatment target values recommended by ADA and other clinical organizations should be used to evaluate metabolic control in patients. Reference: [place] Diabetes Association, Standards of Care in Diabetes [...] ORDERAB LES Final Result Performing Organization Address [facility]/ZIP Co de Phone Number [facility] [address] [place] [phone] [phone] from Last 3 Months or Most Recently Relevant to Health Maintenance Additional Health Concerns Infection Onset Date Last Indicated MRSA 02/16/2023 02/23/2023 Insurance MEDICARE MEDICARE Advance Directives * Full Code (Latest Code Status on File) Date Activated Date Inactivated Comments 02/16/2023 12:51 AM 03/10/2023 11:28 PM Care Teams Tool Distributor Relationship Specialty Start Date End Date Lewis Chopra MD [address] [place] [address] PCP - General 02/17/23
--- OUTSIDE RECORDS SUMMARY | 2025-09-16 14:29 | XMS_ITS | Clinical Summary ---
Author Organization [facility] Address [address] [place] [id number] Care Team Providers Care Finishing Pan Operator Name Role Phone Jaya Dailey MD Primary Care Provider + [phone] Abelardo Gastelum MD Unavailable Allergies No known [...] 1 tablet (25 mcg total) by mouth crna before breakfast Given at 6 am 30 [...] 09/23/2023 Assessment & Plan (09/23/2023 4:10 PM SENIOR NURSE MANAGER): By hx suspect more gas/bloating Consider constipation [...] 08/01 Assessment & Plan (09/23/2023 4:09 PM SENIOR NURSE MANAGER): Wound care following Still wrapped No active [...] 08/01/2023 Assessment & Plan (09/23/2023 4:09 PM SENIOR NURSE MANAGER): Multifactorial Also obstructive Cont murillo Assessment & Plan (08/11/2023 8:25 PM CDT): Has catheter Staff to arrange urology fu for xchg Assessment & Plan (08/05/2023 4:24 PM CDT): Has murillo in place, hx of SAMANTA, unlikely to improve Assessment & Plan (08/01/2023 7:45 PM CDT): Cont spc Rt samanta Has 102 uro appt Encounter for examination for admission to [facility] 07/28/2023 Chronic atrial fibrillation 07/28/2023 Assessment [...] to obtain cardiac clearance but patients primary clinical research assistant will not give d/t not seeing in [...] 04/28/2023 Assessment & Plan (11/16/2023 4:16 PM SENIOR NURSE MANAGER): Multifactorial related to chronic illness and cauda [...] PM CDT): Cr at baseline. Continue to [facility]. Assessment & Plan (04/28/2023 3:58 PM CDT): Cmp ordered as follow up Nonsustained ventricular tachycardia 04/26/2023 Assessment & Plan (04/28/2023 3:56 PM CDT): Monitor for arrhythmia Acquired hypothyroidism 04/26/2023 Assessment & Plan (04/28/2023 3:57 PM CDT): Tsh ordered Hosp tsh reviewed Cont synthroid Macrocytic anemia 03/25/2023 Permanent atrial fibrillation 03/25/2023 Assessment & Plan (11/16/2023 4:16 PM SENIOR NURSE MANAGER): Currently rate controlled. Continue metoprolol. Discussed with [...] 02/16/2023 Assessment & Plan (11/16/2023 4:16 PM SENIOR NURSE MANAGER): Currently compensated. Continue metolazone metoprolol. Assessment & [...] (07/04/2023 2:40 PM CDT): Was able to development administrator parallal bars with tx. Slow but consistent progress. Continue to [facility]. Assessment & Plan (06/27/2023 11:00 AM [...] (01/30/2019): Added automatically from request for surgery [id number] Diabetic polyneuropathy asso ciated with type 2 [...] lopressor Assessment & Plan (01/05/2018 11:41 AM SENIOR NURSE MANAGER): Controlled. Continue with metoprolol. Monitor blood pressure [...] lispro Assessment & Plan (01/05/2018 11:42 AM SENIOR NURSE MANAGER): Insulin pump being held for now. SSI [...] CDT): Brought this to the attention of small machine bindery operator Halina who will ask for an air [...] 03/25/2023 Assessment & Plan (01/05/2018 11:39 AM SENIOR NURSE MANAGER): Troponin peaked at 35.95. EKG as noted above. Cardiology has been consulted and pt is now s/p cardiac catheterization with possible plans to re-enter for further intervention. ASA, Brillinta, Bb, Sony, and Statin ordered. Continue with telemetry. Smoking addiction 01/05/2018 03/25/2023 Assessment & Plan (01/05/2018 11:42 AM SENIOR NURSE MANAGER): Counseled on cessation. Morbid obesity 01/05/2018 03/25/2023 Assessment & Plan (01/05/2018 11:44 AM SENIOR NURSE MANAGER): Pt reports a weight loss of 30+ pounds but has recently began to gain the weight back. Encouraged to begin a weight loss regimen. 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 04/28/2023 Encounters Date Type Department Care Team Description 09/04/2025 Orders Only [facility] Cardiology [address] [place] [address] Hong Vivas MD 09/03/2025 Telephone [facility] Cardiology [address] [facility] [address], [place] [address] Sonal Sarabia NP from Last [...] wound of left heel see pics in [facility] from end of april 2023 Polyneuropathy Encounter for wound care 05/23/23 patient has puncture wound right lateral chest and DTI left heel per Raquel nurse at [facility] they are treating . Pneumonia 02/2023 see [...] week 07/28/2023 How often do you attend [facility] [employer]ir [employer]s or hindu services? Never 07/28/2023 Do you belong to any clubs o r organizations such as episcopal groups, unions, fraternal or athletic groups, or [...] slept in a assisted (including now)? No 07/28/2023 Personal Safety Answer Date Recorded Have you ever been in or are you currently in a harmful physical or emotional relationship or is someone making you feel afraid or unsafe? Denies 01/29/2024 Sex and Gender Information Value Date Recorded Sex Assigned at Not on file Legal Sex Male 3:19 AM SENIOR NURSE MANAGER Gender Identity Not on file Sexual Orientation [...] Completed 02/14/2023 Medical Devices Implanted Type Area Natural Gas Basis Trader Device Identifier Shelf Expiration Date Model / Serial / Lot [employer]iew [id number] Synergy 2.5mm 24mm 144cm Radiopaque 1 Access Port Inflation Lumen - [id number] Implanted:Qty: 1 on 02/22/2019 by Brock Carr MD at [facility] Stent N/A: Heart [employer]iew 11/13/2020 [id number] / / [id number] [employer] [id number] Synergy 3mm 20mm 144cm Radiopaque 1 Access Port Inflation Lumen - [id number] Implanted:Qty: 1 on 02/22/2019 by Brock Carr MD at [facility] Stent N/A: Heart [employer]bigniew 11/08/2020 [id number] / / [id number] Insulin Pump Abdomen System Coronary Stent Synergy Pebax Everolimus Eluting Not[place]waseppi [place] Chromium Plga L16 Mm L144 Cm Od2.5 Mm Radiopaque 1 Access Port Inflation Lumen Accepts .014 In Guidewire - [id number] Implanted:Qty: 1 on 01/04/2018 by Ofelia Ruiz MD at [facility] [employer] [employer] 09/19/2018 [id number] / / [id number] System Coronary Stent Synergy Pebax Everolimus Eluting [place] Chromium Plga L20 Mm L144 Cm Od2.5 Mm Radiopaque 1 Access Port Inflation Lumen Accepts .014 In Guidewire - [id number] Implanted:Qty: 1 on 01/04/2018 by Ofelia Ruiz MD at [facility] [employer] [employer] 10/18/2018 [id number] / / [id number] Daig Zbigniew/[employer] [id number] Angio-Seal Vip Bondek-Plus 6fr .035in 70cm Hemostatic Latex Free - [id number] Implanted:Qty: 1 on 02/22/2019 by Brock Carr MD at [facility] Right: Groin Daig Zbigniew/[employer] 10/06/2019 [id number] / / [id number] Procedures Procedure Name Priority Date/Time Associated Diagnosis Comments CARDIOLOGY DOCUMENT SCAN Routine 09/01/2025 8:58 AM CDT POCT LIPID PANEL Routine 08/08/2024 10:5 4 AM CDT Lipid screening EGFR Routine 07/29/2023 7:15 AM CDT HEMOGLOBIN A1C Routine 05/02/2023 8:[address] ABDOMEN PELVIS WO CONTRAST ED 02/14/2023 10:33 AM CDT ALBUMIN CREATININE RATIO, URINE Routine 11/06/2019 7:26 AM SENIOR NURSE MANAGER from Last 3 Months or Most Recently [...] ORDERABLES Stephanie l Result Performing Organization Address [place]/[facility]/ZIP Co de Phone Number [address] [place] [address] * (ABNORMAL) Hemoglobin A1c (05/02/2023 8:35 AM CDT) [facility] Hgb A1C 5.7(H) 4.0 - 5.6 % [facility] Comment:Testing performed by : [address] [address] Estimated Average Glucose 117 mg/dL [facility] Comment: The ADA recommends reporting an estimated Average Glucose (eAG) with all Hemoglobin A1c results using the equation derived from a study of 507 normal and diabetic adults. Minority populations were underrepresented and children were not included. (Diabetes Care 31:1853-1357, 2008). The eAG is not equivalent to a fasting glucose. Testing performed by: [address] [address] Blood 05/02/2023 8:35 AM CDT 05/02/2023 9:24 AM CDT us Bennie Oliveira MD LAB BLOOD ORDERABLES Final R esult Performing Organization Address [place] Co de Phone Number [address] [place] [address] * CT Abdomen Pelvis WO Contrast (02/14/2023 [...] Harrison Islas M.D. KR T: Report ID: [id number] Reading Location: [id number] Procedure Note Harrison Islas MD - 02/14/2023 [...] by Harrison Islas M.D. T: Report ID: [id number] Reading Location: [place] [address] [address] Roy [address] IMG CT PROCEDURES Final Res ult * (ABNORMAL) Albumin Creatinine Ratio, Urine (11/06/2019 7:26 AM SENIOR NURSE MANAGER) Creatinine, ur 57 20 - 320 mg/dL [facility] [place] Microalbumin, ur 6.4 See [...] within a diagnostic category. 11/06/2019 7:26 AM SENIOR NURSE MANAGER 11/06/2019 7:29 AM SENIOR NURSE MANAGER Narrative Resulting Agency Comment Performing Organization Information: Site ID: [place] Name: [facility] Joseph Address: [address] [place] [address] Director: Kali Sheppard D.O., MPH Anu [facility] URINE ORDERABLES Fi nal Result [facility] [place] from Last 3 Months or Most Recently Relevant to Health Maintenance Additional Health Concerns Infection Onset Date Last Indicated CRE 07/17/2023 07/17/2023 MDR gram neg/ESBL 07/17/2023 07/17/2023 Insurance [facility] MEDICARE ADVANTAGE MEDICARE [employer] [place] Advance Directives For more information, please contact: [phone] Documents on File Type Date Recorded Patient Executive Assistant To President Expl anation ADVANCE DIRECTIVE 05/02/2023 11:29 AM [...] 8:26 AM 07/13/2023 4:49 AM Care Teams Finishing Pan Operator Relationship Specialty Start Date End Date Jaya Dailey MD PCP - General Family Medicine 01/18/19 Abelardo Gastelum MD [address] [facility] DEPT [place] [address] Orthopedic Surgery 05/09/23
--- OUTSIDE RECORDS SUMMARY | 2025-09-16 14:29 | XMS_ITS | Encounter Summary ---
Author Organization [facility] Address [address] [place] [address] Care Team Providers Care Pharmaceutical Operator Name Role Phone Lewis Chopra MD Primary Care Provider [phone] Encounter Details Date Type Department Care Team (Late st Contact Info) Description 03/16/2023 Telephone [facility] - Infectious Disease [address] [facility], [facility] [place] [address] Harrison Titus MD [facility] [place] [address] Social History Tobacco Use Types [...] and heating? Not hard at all 02/16/2023 [facility] [place] of Occupat ional Health - Occupational Stress [...] slept in a intermediate (including now)? No 02/16/2023 Sex and Gender Information Value Date Recorded Sex Assigned at Not on file Legal Sex Male 7:47 PM BOOSTER ASSEMBLER Gender Identity Not on file Sexual Orientation [...] Titus Reason for call: [facility]23[facility] OP ANTIBIOTIC THERAPY appt rescheduled to 04/12/2023 because he will have NO transportation. Schedule conflict. The Rehab center is [facility], , contact is Amaya over scheduling and transportation. Give her a call to reschedule and with any questions. Thanks. Patient Call Back number: [phone] documented in this encounter Plan of Treatment Not on file documented as of this encounter Visit Diagnoses Not on filedocumented in this encounter Additional Health Concerns Infection Onset Date Last Indicated Resolved Time MRSA 02/16/2023 02/23/2023 documented as of this encounter Care Teams Pharmaceutical Operator Relationship Specialty Start Date End Date Lewis Chopra MD [address] [place] [phone] PCP - General 02/17/23 documented as of this encounter
--- OUTSIDE RECORDS SUMMARY | 2025-09-16 14:29 | XMS_ITS | Encounter Summary ---
Author Organization [facility] Healthcare Address [address] [place] [address] Care Team Providers Care Laser Beam Color Scanner Operator Name Role Phone Jaya Dailey MD Primary Care Provider + [phone] Abelardo Gastelum MD Unavailable [phone] Encounter Details Date Type Department Care Team (Late st Contact Info) Description 08/09/2023 Telephone [facility] Radiology [address] [place] [address] Sheree Vasquez, RN Social History Tobacco Use [...] often do you attend chur ch or church services? Never 07/28/2023 Do you belong to any clubs o r organizations such as roman catholic groups, unions, fraternal or athletic groups, or [...] in a care home (including now)? No 07/28/2023 Personal Safety Answer Date Recorded Have you ever been in or are you currently in a harmful physical or emotional relationship or is someone making you feel afraid or unsafe? Denies 08/12/2023 Sex and Gender Information Value Date Recorded Sex Assigned at Not on file Legal Sex Male 3:19 AM REAL TIME OPERATOR Gender Identity Not on file Sexual [...] Time MRSA 02/14/2023 07/17/2023 01/13/2024 3:05 AM REAL TIME OPERATOR CRE 07/17/2023 07/17/2023 MDR gram neg/ESBL 07/17/2023 07/17/2023 documented as of this encounter Care Teams Laser Beam Color Scanner Operator Relationship Specialty Start Date End Date Jaya Dailey MD PCP - General Family Medicine 01/18/19 Abelardo Gastelum MD [address] [facility] DEPT [place] [address] Orthopedic Surgery 05/09/23 documented as of this encounter
--- OUTSIDE RECORDS SUMMARY | 2025-09-16 14:29 | XMS_ITS | Clinical Summary ---
Author Organization [facility] Lisy [facility] Address [address] [place] [address] Care Team Providers Care Sand Screener Name Role Phone Jaya Dailey MD Primary Care Provider [phone] Allergies No known active allergies Medications aspirin [...] on file Legal Sex Male 3:40 PM SHANK PAPERER Gender Identity Not on file Sexual Orientation Not on file Last Filed Vital Signs Vital Sign Reading Time Taken Comments Blood Pressure 133/49 01/03/2023 2:03 PM SHANK PAPERER Pulse 73 01/03/2023 2:34 PM SHANK PAPERER Temperature 36.4 C (97.6 F) 01/03/2023 2:03 PM SHANK PAPERER Respiratory Rate 10 01/03/2023 2:03 PM SHANK PAPERER Oxygen Saturation 98% 01/03/2023 2:03 PM SHANK PAPERER Inhaled Oxygen Concentration - - Weight 181.4 kg (400 lb) 01/03/2023 2:03 PM SHANK PAPERER Height 176.8 cm (5' 9.6) 01/03/2023 2:03 PM SHANK PAPERER Body Mass Index 58.06 01/03/2023 2:03 PM SHANK PAPERER Plan of Treatment Health Maintenance Due Date [...] 2025 Insurance MEDICARE PART A AND B [facility] MEDICARE PART A AND B Care Teams Sand Screener Relationship Specialty Start Date End Date Jaya Dailey MD [address] [place] [address] PCP - General Family Practice 01/03/23
[2025-09-16 14:59] LABS: Add Urine Microscopic? YES; Appearance Urine Cloudy (Clear); Glucose Urine UA Negative (Negative); Leukocyte Esterase Ur 2+ LEU/UL (Negative); Need Manual Microscopic Reviewed; Nitrate Urine Positive (Negative); Specific Grav Ur 1.017 (1.001-1.035)
--- NOTE | 2025-09-16 15:02 | ECG_ITS ---
Test Date: 2025-09-16 15:28:03 Measurements Intervals [place] Rate: 90 P: 0 [place]: 0 QRS: -42 QRSD: 119 T: 144 QT: 385 QTc: 473 Interpretive Statements ATRIAL FIBRILLATION WITH ABERRANT CONDUCTION OR VENTRICULAR PREMATURE COMPLEXES LOW QRS VOLTAGE [QRS DEFLECTION < 0.5/1.0 mV IN LIMB/CHEST LEADS] INFERIOR MYOCARDIAL INFARCTION , PROBABLY OLD [40+ ms Q WAVE AND/OR ST/T ABNORMALITY IN II/aVF] Electronically Signed On 09-17-2025 18:04:16 PROFESSOR OF GENETICS by Blade Bucio M.D.
--- NOTE | 2025-09-16 15:03 | ED_ITS ---
HPI - General Adult General Chief complaint: Urogenital-Male Stated complaint: swollen scrotom Time Seen by Provider: 09/16/25 14:18 History of Present Illness HPI narrative: 70-year-old male present to the emergency department for evaluation for worsening scrotal edema and worsening generalized weakness. Patient was just admitted to the hospital for fluid overload and chronic kidney disease. Patient was potentially overly diuresed during his hospital stay and had worsening kidney function. Patient was told to hold his diuretics as outpatient but to follow a water restriction diet. Patient states he has been following the water restriction diet but felt he has had worsening scrotal and pannus edema. Patient did have an abnormal UA collected from his suprapubic catheter during his last hospitalization but this had negative culture. Patient does have high white blood cells in his urine today. 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 Iron deficiency Spinal cord tumor Stage 3b chronic kidney disease Hypothyroid Vitamin D deficiency, unspecified Atrial flutter Resistance to multiple antimicrobial drugs In the urine Diabetes mellitus with chronic kidney disease Type 2 diabetes mellitus with unspecified diabetic retinopathy with macular edema BMI 45.0-49.9, adult Insulin dependent type 2 diabetes mellitus Morbid (severe) obesity due to excess calories CAD (coronary artery disease) Hyperlipidemia Microhematuria Congestive heart failure Echocardiogram 2019 demonstrated normal ejection fraction with grade 1 diastolic dysfunction Umbilical hernia Depression with anxiety Essential (primary) hypertension Insomnia PERLITA on CPAP CPAP of 19 Polyneuropathy, unspecified Pure hypercholesterolemia Surgical History Surgical History (Updated 08/31/25 @ 05:16 by Radha Rosario DO) Chronic suprapubic catheter (~2023) Status post medial meniscus repair of left knee H/O skin graft left ankle History of removal of pigmented skin lesion eyelids H/O heart artery stent 2 in 2017 and 2 in 2018. History of left shoulder replacement (~2019) S/P tonsillectomy and adenoidectomy Family History Family History Father Family history of malignant neoplasm Leukemia Cerebrovascular accident Diabetes mellitus Exposure to uranium Mother Kidney failure Kidney disease Sibling Acute myocardial infarction Cardiac defibrillator in place Sibling Alcohol abuse Lung cancer Other No problems noted. Other No problems noted. Other Family history of arthritis Family history of coronary artery disease Family history of elevated blood lipids Family history of glaucoma Family history of hypercholesterolemia Family history of obesity Hypertension Social History Social History (Updated 08/31/25 @ 05:25 by Radha Rosario DO) Social History: He lives in his own home. He utilizes a wheelchair for mobility. He can pivot to transfer but for the most part cannot walk. His biological daughter of sepsis and was sounds like Saqib's gangrene. His son is still living. But is surrogate decision maker is his daughter's best friend which she has claimed as his ?unofficial daughter?. His Honorary daughter her and her son live with the patient and help provide his daily cares. He still smokes 3 thin cigars a day. He used to smoke significantly heavier amount and quit smoking for many years before restarting in 2022. 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 He drinks 1 alcoholic beverage about once a month. He intermittently uses marijuana. Surrogate medical decision maker: Jennifer Galarza (Honorary daughter) Code status: Full code (however he would not want long-term ventilation, tracheostomy or PEG tube) Smoking packs per day: 1 Smoking cigarettes per day: 20.0 Years smoked: 35 Smoking pack-years: 35.00 Smoking status: Current some day smoker Tobacco type: cigars Second hand tobacco smoke exposure: Yes Alcohol intake: former Alcohol use details: One drink per month Substance use: current Substance use type: marijuana Do You Feel Safe in your Home?: Yes Lack of Transportation: No Lack of Food: Never True Current Housing: I Have Housing Concerned About Future Housing: No Difficulty Paying Gas/Electric Bills: No Difficulty Paying for Meds: No Currently Unemployed: No Education: High School Diploma/GED Difficulty w/ Childcare or Family Care: No Living arrangements: with family Occupation/Education: retired 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 HEAD: normocephalic, atraumatic. EYES: PERRLA/EOMI, conjunctivae clear. NOSE: Normal no drainage EARS:TMS clear with good light reflex. THROAT: Pharynx clear, no exudate. NECK: Supple. No adenopathy, no masses. RESPIRATORY: Airway patent, respirations nonlabored. Clear to auscultation bilaterally, no rales, rhonchi, wheezing. CARDIOVASCULAR: Regular rate and rhythm without murmurs rubs or gallops. ABDOMINAL: Suprapubic cath MUSCULOSKELETAL: Moves all extremities. Strength/ROM intact, No edema, No calf tenderness. NEURO: Alert. Cranial nerves II through XII intact. Good gait. Good coordination SKIN: Significant scrotal and pain does edema Course Vital Signs Vital signs: Vital Signs Temperature 97.5 F L 09/16/25 12:21 Pulse Rate 91 09/16/25 12:21 Respiratory Rate 16 09/16/25 12:21 Blood Pressure 103/83 09/16/25 12:21 Pulse Oximetry 100 09/16/25 12:21 Temperature 97.5 F L 09/16/25 12:21 Pulse Rate 94 09/16/25 17:59 Respiratory Rate 16 09/16/25 17:57 Blood Pressure 126/71 09/16/25 17:59 Pulse Oximetry 99 09/16/25 17:57 Oxygen Delivery Room Air 09/16/25 13:32 Medical Decision Making MDM Narrative Medical decision making narrative: 70-year-old male presented the emergency department for evaluation for increased generalized weakness and worsening edema. UA was concerning for infection. Patient's suprapubic Shoemaker catheter was exchanged in the emergency department. Patient is currently afebrile with leukocytosis hemoglobin of 13.7. Patient does have a creatinine of 2.34 which is similar to his previous baseline at time of discharge. Patient's proBNP is a 1230 which is also improved compared to his recent baseline. Patient's urine is more suggestive of a urinary tract infection and it is now nitrate positive with greater than 100 white blood cells and +4 bacteria, patient's previous urine cultures did show Proteus that was pansensitive. Patient was started on IV Rocephin. Patient was also treated with a dose of IV Lasix. Case was discussed with hospitalist patient was accepted for admission. Differential Diagnosis Differential Diagnosis: Urinary tract infection, urinary colonization, congestive heart failure fluid overload, acute kidney injury Vital Signs Vital Signs: Vital Signs Temperature 97.5 F L 09/16/25 12:21 Pulse Rate 91 09/16/25 12:21 Respiratory Rate 16 09/16/25 12:21 Blood Pressure 103/83 09/16/25 12:21 Pulse Oximetry 100 09/16/25 12:21 Temperature 97.5 F L 09/16/25 12:21 Pulse Rate 94 09/16/25 17:59 Respiratory Rate 16 09/16/25 17:57 Blood Pressure 126/71 09/16/25 17:59 Pulse Oximetry 99 09/16/25 17:57 Oxygen Delivery Room Air 09/16/25 13:32 Lab Data Lab results reviewed: Yes I reviewed the patient's lab results. 09/16/25 15:26 09/16/25 15:26 Labs: Lab Results 09/16/25 09/16/25 Range/Units 14:16 15:26 WBC 8.4 (4.5-10.0) K/mm3 RBC 4.46 L (4.6-6.20) M/mm3 Hgb 13.7 L (14.0-18.0) g/dL Hct 44.8 (42.0-52.0) % MCV 100.4 H (80-100) fl MCH 30.7 (26-34) pg MCHC 30.6 L (32-36) g/dl RDW 14.6 H (11.5-14.5) % Plt Count 113 L (150-375) k/mm3 MPV 10.1 (7.4-10.4) fl Immature Gran % (Auto) 0.4 (0-0.5) % Neut % (Auto) 72.4 (45.5-73.1) % Lymph % (Auto) 17.3 L (18.3-44.2) % [place] % (Auto) 7.3 (2.6-8.5) % Eos % (Auto) 2.0 (0-4.4) % Baso % (Auto) 0.6 (0.2-1.2) % Lymph # (Auto) 1.45 (0.9-3.2) K/mm3 [place] # (Auto) 0.6 (0.1-0.6) K/mm3 Eos # (Auto) 0.2 (0-0.3) K/mm3 Baso # (Auto) 0.1 (0.0-0.1) K/mm3 Abs Immat Gran (auto) 0.03 (0.00-0.031) K/mm3 Absolute Neuts (auto) 6.1 (1.3-6.7) K/mm3 Absolute Nucleated RBC 0.000 (0.0-0.012) K/mm3 Nucleated RBC % 0.0 (0.0-0.2) % Sodium 142 (137-145) mmol/L Potassium 4.2 (3.4-5.0) mmol/L Chloride 113 H (98-107) mmol/L Carbon Dioxide 20 L (22-30) mmol/L Anion Gap 9 (4-12) mmol/L BUN 21 H D (9-20) mg/dL Creatinine 2.34 H (0.7-1.3) mg/dL Estim Creat Clear Calc 37 ml/min Estimated GFR 28 L (59 - ) Glucose 123 H (65-110) mg/dL Calcium 8.6 (8.4-10.2) mg/dL Total Bilirubin 1.2 (0.2-1.3) mg/dL AST 20 (17-59) U/L ALT 14 (6-50) U/L Alkaline Phosphatase 92 (38-126) U/L NT-Pro-B Natriuret Pep 8230 H (19.9-100) pg/mL Total Protein 7.7 (6.3-8.2) g/dL Albumin 4.1 (3.5-5.1) g/dL Urine Color Yellow (Yellow) Urine Appearance Cloudy H (Clear) Urine pH 6.5 (5.0-9.0) Ur Specific Stacy 1.017 (1.001-1.035) Urine Protein 3+ H (Negative) mg/dL Urine Glucose (UA) Negative (Negative) mg/dL Urine Ketones Negative (Negative) mg/dL Ur Blood (Man) 2+ H (Negative) Urine Nitrate Positive H (Negative) Urine Bilirubin Negative (Negative) Urine Urobilinogen 1.0 (<2.0) mg/dL Add Ur Microanalysis Reviewed Leukocyte Esterase Rfl 2+ H (Negative) MAGED/UL Urine RBC 21-50 H (0-2) /hpf Urine WBC >100 H (0-3) /hpf Ur Squamous Epith Cells None seen (Few) /hpf Urine Bacteria 4+ H /hpf Urine Casts 3-5 Discharge Plan Discharge Clinical Impression: Edema of scrotum, Urinary tract infection, Generalized weakness, Chronic kidney disease Patient Disposition: Still a Patient Condition: Serious
[2025-09-16 15:31] LABS: Hematocrit 44.8 % (42.0-52.0); Hemoglobin 13.7 g/dL (14.0-18.0); Immature Granulocyte Percent A 0.4 % (0-0.5); Lymphocytes Absolute Auto 1.45 K/mm3 (0.9-3.2); Mean Corpuscular HGB Conc 30.6 g/dl (32-36); Mean Corpuscular Hemoglobin 30.7 pg (26-34); Mean Corpuscular Volume 100.4 fl (80-100); Nucleated Red Blood Cells Absolute Auto 0.000 K/mm3 (0.0-0.012); Nucleated Red Blood Cells Perc 0.0 % (0.0-0.2); Platelet Count Result 113 k/mm3 (150-375); Red Blood Count 4.46 M/mm3 (4.6-6.20); White Blood Count 8.4 K/mm3 (4.5-10.0)
[2025-09-16 15:45] LABS: Alanine Aminotransferase 14 U/L (6-50); Albumin Level 4.1 g/dL (3.5-5.1); Alkaline Phosphatase 92 U/L (38-126); Anion Gap 9 mmol/L (4-12); Aspartate Amino Transferase 20 U/L (17-59); Bilirubin,Total 1.2 mg/dL (0.2-1.3); Blood Urea Nitrogen 21 mg/dL (9-20); Calcium 8.6 mg/dL (8.4-10.2); Carbon Dioxide 20 mmol/L (22-30); Chloride 113 mmol/L (98-107); Estimated CRCL calculation 37 ml/min; Estimated Glomerular Filt Rate 28; Glucose 123 mg/dL (65-110); Potassium 4.2 mmol/L (3.4-5.0); Sodium 142 mmol/L (137-145); Total Protein 7.7 g/dL (6.3-8.2)
[2025-09-16 15:54] LABS: NT Pro B Type Natriuretic Pept 8230 pg/mL (19.9-100)
[2025-09-16] MEDS: cefTRIAXone 1 GM in SODIUM CHLORIDE 0.9% IV 50 ML 100 ML IVPB (16:56)
[2025-09-16] MEDS: FUROSEMIDE INJ 40 MG/4 ML VIAL IV PUSH (16:56)
--- NOTE | 2025-09-16 17:56 | WPCEDHO ---
ED Hand Off Checklist All vitals saved: Y IV Site documented: Y All med administrations documented: Y Triage Note Triage Note Pt to ED co swelling to scrotum, 09/16/25 13:32 states he was seen here 1 week ago for the same thing and discharged. Pt states the swelling has not gone down any, states he has not seen his PCP since the swelling started. States has an increase in weakness Allergies atorvastatin Adverse Reaction (Intermediate, Verified 09/16/25 12:19) myalgia Family History (Last Reviewed 08/31/25 @ 05:15 by Radha Rosario DO) Father Family history of malignant neoplasm Leukemia Cerebrovascular accident Diabetes mellitus Exposure to uranium Mother Kidney failure Kidney disease Sibling Acute myocardial infarction Cardiac defibrillator in place Sibling Alcohol abuse Lung cancer Other No problems noted. Other No problems noted. Other Family history of arthritis Family history of coronary artery disease Family history of elevated blood lipids Family history of glaucoma Family history of hypercholesterolemia Family history of obesity Hypertension Administered/Completed Medications Discontinued Medications Furosemide (Furosemide Inj 40 Mg/4 Ml Vial) 40 mg IV PUSH ONCE STA Stop: 09/16/25 16:15 Last Admin: 09/16/25 16:56 Dose: 40 mg Documented By: ROHIT Ceftriaxone Sodium 1 gm/ (Sodium Chloride) 50 mls @ 100 mls/hr IVPB ONCE STA Stop: 09/16/25 16:41 Last Infusion: 09/16/25 17:35 Dose: Infused Documented By: Admin: 09/16/25 16:56 Dose: 100 mls/hr Documented By: ROHIT Interventions/Assessments IV / Saline Lock, Insert Start: 09/16/25 12:16 Freq: Status: Active Protocol: Document 09/16/25 16:56 AZG (Rec: 09/16/25 16:56 AZG [id number]) IV Assessment Peripheral Access Left Forearm IV Catheter Access Initiated IV Insertion Date 09/16/25 IV Insertion Time 16:56 Catheter Gauge 20 IV Insertion 1 Attempts IV Site Assessment WNL IV Care and WNL Maintenance PA: Genitourinary Assessment Start: 09/16/25 12:16 Freq: Status: Active Protocol: Document 09/16/25 13:32 CMM (Rec: 09/16/25 13:34 CMM [id number]) Assessment Voiding Method Indwelling Catheter Genitourinary [place] has swelling to scrotal area for past week Comments Genital Discharge Characteristics Amount None Genital Discharge None Odor Last Vital Signs Temperature 97.5 F L 09/16/25 12:21 Pulse Rate 99 09/16/25 13:32 Respiratory Rate 20 09/16/25 13:32 Pulse Oximetry 98 09/16/25 13:32 Blood Pressure 139/90 09/16/25 13:32 Blood Pressure Mean 106 09/16/25 13:32 Blood Pressure Position Sitting 09/16/25 13:32 Oxygen Delivery Room Air 09/16/25 13:32 Weight 136.3 kg 09/16/25 13:32 Last Result - Abnormals Only RBC 4.46 M/mm3 (4.6-6.20) L 09/16/25 15:26 Hgb 13.7 g/dL (14.0-18.0) L 09/16/25 15:26 MCV 100.4 fl (80-100) H 09/16/25 15:26 MCHC 30.6 g/dl (32-36) L 09/16/25 15:26 RDW 14.6 % (11.5-14.5) H 09/16/25 15:26 Plt Count 113 k/mm3 (150-375) L 09/16/25 15:26 Lymph % (Auto) 17.3 % (18.3-44.2) L 09/16/25 15:26 Chloride 113 mmol/L (98-107) H 09/16/25 15:26 Carbon Dioxide 20 mmol/L (22-30) L 09/16/25 15:26 BUN 21 mg/dL (9-20) H D 09/16/25 15:26 Creatinine 2.34 mg/dL (0.7-1.3) H 09/16/25 15:26 Estimated GFR 28 (59-) L 09/16/25 15:26 Glucose 123 mg/dL (65-110) H 09/16/25 15:26 NT-Pro-B Natriuret Pep 8230 pg/mL (19.9-100) H 09/16/25 15:26 Urine Appearance Cloudy (Clear) H 09/16/25 14:16 Urine Protein 3+ mg/dL (Negative) H 09/16/25 14:16 Ur Blood (Man) 2+ (Negative) H 09/16/25 14:16 Urine Nitrate Positive (Negative) H 09/16/25 14:16 Leukocyte Esterase Rfl 2+ MAGED/UL (Negative) H 09/16/25 14:16 Urine RBC 21-50 /hpf (0-2) H 09/16/25 14:16 Urine WBC >100 /hpf (0-3) H 09/16/25 14:16 Urine Bacteria 4+ /hpf H 09/16/25 14:16 Most Recent Suicide Severity Rating Suicide Severity Rating NO RISK INDICATED 09/16/25 13:32
--- NOTE | 2025-09-16 18:49 | ADMGEN ---
This patient, Hong Quinonez, was admitted to Medical Room 349-01. Patient/family oriented to hospital policies and general routines including ID bracelet, bed and alarms, visiting hours, pain management, procedures, bathroom and other care routines, personal items, smoking policy, room service/diet, and visiting hours. Information on how to activate the Rapid Response Team has been discussed. Patient/Family are encouraged to report perceived risks to care and to ask questions if they do not understand what they are told or what they should do.
--- NOTE | 2025-09-16 19:09 | PCRCNOTE ---
Pt said he did not want a CPAP due to he lost 200 Lb and does not need it.
--- NOTE | 2025-09-16 21:37 | PM.IMHP ---
H&P: HPI History of Present Illness Date/Time: 09/16/25 21:37 Chief Complaint: Scrotal edema Narrative: 70-year-old male with a past medical history of morbid obesity incomplete paraplegia due to spinal surgery, atonic bladder with chronic suprapubic catheter,, type 2 diabetes mellitus, obstructive sleep apnea, paroxysmal atrial fibrillation chronic kidney disease stage 3, biventricular heart failure with EF of 20% due to ischemic cardiomyopathy and essential hypertension who presented to the ER with persistent scrotal swelling. The patient was recently hospitalized at which time was found his cardiac function had significantly decreased from isolated diastolic dysfunction with preserved ejection fraction and now he has biventricular heart failure with EF of 20%. The patient was discharged with a LifeVest but patient admits that he has been noncompliant with his LifeVest in only wart for the 1st day. He stated that the sensors cap going off every time he would lay down so he decided it was not worth wearing it. He voiced understanding that he needed to be wearing his CPAP but has not bothered to call the home health company to get a new mask or tubing. I actually ordered a is auto titrating CPAP BiPAP while the patient is hospitalized and respiratory came in the room multiple times to apply the device in the patient refuses. He received diuresis during his last hospitalization but just prior to discharge his diuretics were discontinued due to worsening renal function. He was continued on Entresto metoprolol and Eliquis. His Entresto dose however was decreased to half a tablet prior to discharge due hypotension. The patient reports that since returning home his scrotal edema has remained the same and unchanged. It is so bad the states he cannot move around. He denies any chest pain. He feels like his shortness of breath is the same as when he was discharged. He reports overwhelming fatigue that just has not improved. I did try to discuss with him that is the was in part due to his heart failure and his untreated obstructive sleep apnea. He is concerned that his abdomen is still tight and full of fluid. He is still having a dry cough but has not been having any fevers or chills. His cough has not worsened. The patient's weight on discharge on the was 143.7 kg. His weight today was 149.8 kg. He reports that he has been compliant with a heart healthy diet. Or at least he has been trying to be compliant with his heart healthy diet. Review of Systems Review of Systems: 12 systems were reviewed with pertinent positives and negatives per HPI. Except as documented in the HPI, all other systems were reviewed and are negative. [facility] Past Medical History Medical History (Updated 09/16/25 @ 22:00 by Radha Rosario DO) Biventricular congestive heart failure Chronic atrial flutter Umbilical hernia Atonic bladder 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 Iron deficiency Spinal cord tumor Stage 3b chronic kidney disease Hypothyroid Vitamin D deficiency, unspecified Resistance to multiple antimicrobial drugs In the urine Diabetes mellitus with chronic kidney disease Type 2 diabetes mellitus with unspecified diabetic retinopathy with macular edema BMI 45.0-49.9, adult Morbid (severe) obesity due to excess calories CAD (coronary artery disease) Hyperlipidemia Microhematuria Depression with anxiety Essential (primary) hypertension Insomnia PERLITA on CPAP CPAP of 19 Polyneuropathy, unspecified Pure hypercholesterolemia Surgical History Surgical History (Updated 08/31/25 @ 05:16 by Radha Rosario DO) Chronic suprapubic catheter (~2023) Status post medial meniscus repair of left knee H/O skin graft left ankle History of removal of pigmented skin lesion eyelids H/O heart artery stent 2 in 2018 and 2 in 2019. History of left shoulder replacement (~2019) S/P tonsillectomy and adenoidectomy Family History Family History Father Family history of malignant neoplasm Leukemia Cerebrovascular accident Diabetes mellitus Exposure to uranium Mother Kidney failure Kidney disease Sibling Acute myocardial infarction Cardiac defibrillator in place Sibling Alcohol abuse Lung cancer Other No problems noted. Other No problems noted. Other Family history of arthritis Family history of coronary artery disease Family history of elevated blood lipids Family history of glaucoma Family history of hypercholesterolemia Family history of obesity Hypertension Social History Social History (Updated 08/31/25 @ 05:25 by Radha Rosario DO) Social History: He lives in his own home. He utilizes a wheelchair for mobility. He can pivot to transfer but for the most part cannot walk. His biological daughter of sepsis and was sounds like Saqib's gangrene. His son is still living. But is surrogate decision maker is his daughter's best friend which she has claimed as his ?unofficial daughter?. His Honorary daughter her and her son live with the patient and help provide his daily cares. He still smokes 3 thin cigars a day. He used to smoke significantly heavier amount and quit smoking for many years before restarting in 2022. 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 He drinks 1 alcoholic beverage about once a month. He intermittently uses marijuana. Surrogate medical decision maker: Jennifer Galarza (Honorary daughter) Code status: Full code (however he would not want long-term ventilation, tracheostomy or PEG tube) Smoking packs per day: 1 Smoking cigarettes per day: 20.0 Years smoked: 35 Smoking pack-years: 35.00 Smoking status: Current some day smoker Tobacco type: cigars Second hand tobacco smoke exposure: Yes Alcohol intake: former Alcohol use details: One drink per month Substance use: current Substance use type: marijuana Do You Feel Safe in your Home?: Yes Lack of Transportation: No Lack of Food: Never True Current Housing: I Have Housing Concerned About Future Housing: No Difficulty Paying Gas/Electric Bills: No Difficulty Paying for Meds: No Currently Unemployed: No Education: High School Diploma/GED Difficulty w/ Childcare or Family Care: No Living arrangements: with family Occupation/Education: retired 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 Gender identity (if verbalized by the patient): Male Spiritual care concerns: No Meds Home Medications and Allergies Home Medications ?Medication ?Instructions ?Recorded ?Confirmed ?Type blood sugar diagnostic (TinyBytes No #50 ea 06/14/24 09/16/25 Rx Coding strips) apixaban 5 mg tablet (Eliquis) 5 mg PO Q12H #180 tabs 09/03/25 09/16/25 Rx aspirin 81 mg tablet,delayed 81 mg PO QAM #30 tabs 09/03/25 09/16/25 Rx release lanolin alcohols-mineral 1 applic topical DAILY #113 grams 09/03/25 09/16/25 Rx oil-w.petrolatum-ceresin topical cream (Minerin Creme topical) metoprolol succinate 25 mg 25 mg PO QAM #30 tabs 09/03/25 09/16/25 Rx tablet,extended release 24 hr (Toprol XL) sacubitril 24 mg-valsartan 26 mg 0.5 tab PO Q12HR #30 tabs 09/03/25 09/16/25 Rx tablet (Entresto) Allergies Allergy/AdvReac Type Severity Reaction Status Date / Time atorvastatin AdvReac Intermediate myalgia Verified 09/16/25 18:55 Vital Signs Vital Signs - 24 hr 09/16/25 12:21 09/16/25 13:32 09/16/25 15:00 Temperature 97.5 F L Pulse Rate 91 99 90 Respiratory Rate 16 20 Blood Pressure 103/83 139/90 122/84 Pulse Oximetry 100 98 Oxygen Delivery Room Air Fraction of Inspired Oxygen 09/16/25 16:00 09/16/25 17:00 09/16/25 17:45 Temperature Pulse Rate 90 88 91 Respiratory Rate Blood Pressure 118/80 136/92 H 108/77 Pulse Oximetry Oxygen Delivery Fraction of Inspired Oxygen 09/16/25 17:57 09/16/25 17:59 09/16/25 20:34 Temperature Pulse Rate 95 94 85 Respiratory Rate 16 20 Blood Pressure 106/77 126/71 Pulse Oximetry 99 90 Oxygen Delivery Room Air Fraction of Inspired Oxygen 21 Exam Narrative: Weight 149.8 kg BMI 50 Const: Other: Chronically ill-appearing, morbidly obese, no acute distress HENMT: Other: Mucous membranes are moist, no oral pharyngeal erythema, markedly crowded posterior oropharynx Eyes: Other: Pupils are equal and reactive, no scleral icterus, no conjunctival pallor Neck: Other: Large neck circumference, unable to assess for JVD due to body habitus Resp: Other: Decreased breath sounds throughout, no increased work of breathing Cardio: Other: Irregularly irregular, 2+ bilateral radial pedal pulses, distant heart sounds GI: Other: Obese, nontender, abdominal wall edema noted, suprapubic catheter in place : Other: Patient has lipedema of the tissues of the groin superior to the penis and scrotum, scrotum are grossly edematous, penis is not visualized due to body habitus and morphology Skin: Other: Chronic venous stasis changes of lower extremities with [place] edema, thickened flaking skin from bilateral legs and feet, onychomycosis of the toenails with overgrown toenails Neuro: Other: Alert oriented x4, speech is clear, no facial asymmetry, decreased sensation bilateral lower extremities, foot drop of bilateral lower extremities Extrem: Other: Skin changes as noted above, decreased motor strength of bilateral lower extremities consistent with history of incomplete paraplegia Psych: Other: Appropriate mood and affect, pleasant and cooperative, poor judgment and insight H&P: Results Labs Labs: Laboratory Tests 09/16/25 15:26 09/16/25 15:26 09/16/25 09/16/25 14:16 15:26 WBC 8.4 RBC 4.46 L Hgb 13.7 L Hct 44.8 MCV 100.4 H MCH 30.7 MCHC 30.6 L RDW 14.6 H Plt Count 113 L MPV 10.1 Immature Gran % (Auto) 0.4 Neut % (Auto) 72.4 Lymph % (Auto) 17.3 L [place] % (Auto) 7.3 Eos % (Auto) 2.0 Baso % (Auto) 0.6 Lymph # (Auto) 1.45 [place] # (Auto) 0.6 Eos # (Auto) 0.2 Baso # (Auto) 0.1 Abs Immat Gran (auto) 0.03 Absolute Neuts (auto) 6.1 Absolute Nucleated RBC 0.000 Nucleated RBC % 0.0 Sodium 142 Potassium 4.2 Chloride 113 H Carbon Dioxide 20 L Anion Gap 9 BUN 21 H D Creatinine 2.34 H Estim Creat Clear Calc 37 Estimated GFR 28 L Glucose 123 H Calcium 8.6 Total Bilirubin 1.2 AST 20 ALT 14 Alkaline Phosphatase 92 NT-Pro-B Natriuret Pep 8230 H Total Protein 7.7 Albumin 4.1 Urine Color Yellow Urine Appearance Cloudy H Urine pH 6.5 Ur Specific [place] 1.017 Urine Protein 3+ H Urine Glucose (UA) Negative Urine Ketones Negative Ur Blood (Man) 2+ H Urine Nitrate Positive H Urine Bilirubin Negative Urine Urobilinogen 1.0 Add Ur Microanalysis Reviewed Leukocyte Esterase Rfl 2+ H Urine RBC 21-50 H Urine WBC >100 H Ur Squamous Epith Cells None seen Urine Bacteria 4+ H Urine Casts 3-5 Assessment and Plan Assessment and plan (1) Edema of scrotum: Code(s): N50.89 - Other specified disorders of the male genital organs Status: Acute (2) Biventricular congestive heart failure: Code(s): I50.82 - Biventricular heart failure Status: Acute (3) Cardiomyopathy: Qualifiers: Cardiomyopathy type: ischemic Qualified Code(s): I25.5 - Ischemic cardiomyopathy Code(s): I42.9 - Cardiomyopathy, unspecified Status: Acute (4) Abnormal urinalysis: Code(s): R82.90 - Unspecified abnormal findings in urine Status: Acute (5) Suprapubic catheter: Code(s): Z93.59 - Other cystostomy status Status: Acute (6) Stage 3b chronic kidney disease: Code(s): N18.32 - Chronic kidney disease, stage 3b Status: Acute (7) Pressure ulcer of left heel: Qualifiers: Pressure injury stage: unspecified pressure injury stage Qualified Code(s): L89.629 - Pressure ulcer of left heel, unspecified stage Code(s): L89.629 - Pressure ulcer of left heel, unspecified stage Status: Acute Plan Patient has acute on chronic CHF with persistent scrotal and abdominal wall edema. The patient's creatinine is remained stable since his prior hospitalization. He is having some increased orthopnea from baseline. His weight is significantly compared to recent hospitalization. Will start the patient on Lasix 40 mg IV b.i.d.. The patient did receive 140 mg of Lasix in the ER and is had a large amount of urine output. If the patient's renal function worsens with diuresis we may need to consider the role of hemodialysis and fluid management for this patient. Will obtain chest x-ray. Will continue Entresto and metoprolol. The patient is refusing LifeVest. The risks of continuing to refuse Life Vest were discussed with the patient in detail. Even though he does not want to wear the LifeVest he still wants to be a full code. The importance of CPAP in its role and reducing cardiac load was discussed with the patient in detail but the patient is refusing CPAP. Will repeat electrolyte panel, magnesium and CBC in a.m.. Patient does have an abnormal urinalysis but this is not unexpected given the patient's chronic suprapubic catheter. The patient is not having fevers, chills or elevated white count to suggest acute infection. Will discontinue Rocephin. Urine cultures were obtained in the ER. Will resume antibiotics if the patient develops fever other signs of infection. Patient has the chronic pressure ulcer of the left heel but it looks like it is improved compared to my prior evaluation. Will continue with pressure offloading. Patient has been admitted as observation status. MEDICAL DECISION MAKING NARRATIVE -Spoke with the ED provider in detail regarding patient's evaluation, workup and management -Patient seen and examined at bedside -Collaborated with patient's nurse at the bedside in detail and addressed all concerns -Labs, electrolytes, radiology, investigations and test results personally reviewed and interpreted unless otherwise specified -ED/Consult/Nursing/Ancilliary notes on the chart reviewed and appreciated -Spoke with patient at bedside and diagnosis and plan of care was discussed. All questions answered. Quality VTE Prophylaxis VTE prophylaxis: pharmacologic ordered (Continue home Eliquis.) Hospitalist MIPS Advance Care Plan I have confirmed that the patient's Advanced Care Plan is present, code status is documented, or surrogate decision maker is listed in patient medical record.: Yes Medication Reconciliation I have utilized all available resources to obtain, update and review the patients current medications (includes all prescriptions, OTC, herbals, cannabis, and nutritional supplements).: Yes
[2025-09-16] MEDS: APIXABAN 5 MG TABLET PO (22:28)
[2025-09-16] MEDS: SACUBITRIL/VALSARTAN 12-13 MG TABLET 1 TAB PO (22:28)
[2025-09-17] VITALS (11 sets, daily range): BP systolic 118–130; BP diastolic 74–89; PULSE 86–100; RESP 16–20; TEMP 36.4–36.8; O2SAT 94–100
[2025-09-17] MEDS: ASPIRIN 81 MG ENTERIC TABLET PO (09:10)
[2025-09-17] MEDS: SACUBITRIL/VALSARTAN 12-13 MG TABLET 1 TAB PO ×2 (09:10→20:58)
[2025-09-17] MEDS: APIXABAN 5 MG TABLET PO ×2 (09:10→20:58)
[2025-09-17] MEDS: EUCERIN CREAM 454 GM JAR 1 APPLIC TOPICAL (09:11)
[2025-09-17] MEDS: FUROSEMIDE INJ 40 MG/4 ML VIAL 20 MG IV PUSH ×2 (09:11→17:09)
[2025-09-17] MEDS: METOPROLOL SUCCINATE EXT REL 25 MG TABCR PO (09:11)
[2025-09-17 09:59] LABS: Hematocrit 42.9 % (42.0-52.0); Hemoglobin 13.0 g/dL (14.0-18.0); Immature Platelet Fraction Pct 1.8 % (0.9-11.2); Mean Corpuscular HGB Conc 30.3 g/dl (32-36); Mean Corpuscular Hemoglobin 30.2 pg (26-34); Mean Corpuscular Volume 99.8 fl (80-100); Platelet Count Result 112 k/mm3 (150-375); Red Blood Count 4.30 M/mm3 (4.6-6.20); White Blood Count 5.7 K/mm3 (4.5-10.0)
[2025-09-17 10:26] LABS: Anion Gap 5 mmol/L (4-12); Blood Urea Nitrogen 19 mg/dL (9-20); Calcium 8.3 mg/dL (8.4-10.2); Carbon Dioxide 25 mmol/L (22-30); Chloride 111 mmol/L (98-107); Estimated CRCL calculation 40 ml/min; Estimated Glomerular Filt Rate 29; Glucose 100 mg/dL (65-110); Magnesium 2.4 mg/dL (1.6-2.3); Potassium 3.7 mmol/L (3.4-5.0); Sodium 141 mmol/L (137-145)
--- NOTE | 2025-09-17 14:17 | PM.IMPN ---
Progress Note: A&P Assessment and Plan (1) Edema of scrotum: Code(s): N50.89 - Other specified disorders of the male genital organs Status: Acute Plan Scrotal edema Heart failure reduced ejection fraction exacerbation -no leukocytosis, and received a dose of Rocephin, discontinue antibiotics for now, monitor fever curve, check procalcitonin -diuresis: Lasix 20 mg IV b.i.d. -monitor strict I&O: net -1.24L -BNP 8230 -cloudy urine >100 WBC. recieved Rocephin in the ED -baseline weight 144kg, now at 150kg -patient has biventricular heart failure with EF of 20% -for heart failure regimen: On Entresto, beta-naeem, aspirin -similar scrotal edema during hospitalization 08/30-09/03 Chronic conditions -CKD 3B: Cr baseline 2.2-2.5, on presentation 2.34 -paroxysmal atrial ablation: Anticoagulation Eliquis, rate control metoprolol -CAD? no statin -PERLITA -DMII? monitor glucose, no home insulin or DMII meds -bladder atony: suprapubic catheter exchanged during most recent hospitalization by urologist -chronic left heel pressure ulcer Diet: Healthy diet with fluid restriction 1500cc DVT ppx: Eliquis Code status: Full code Disposition: home >2 days Time Spent With Patient Time: 35 minutes Subjective Date/time seen: 09/17/25 14:17 Interval history: Patient seen examined. Patient presented with CHF exacerbation and scrotal edema. BNP elevated to 8200. Creatinine 2.34. Patient has IV Lasix diuresis. He has a scrotal sling which he is using. Review of Systems Review of Systems: 10 point ROS complete, negative other than what is specified in HPI. Exam Narrative: - GENERAL: Pleasant obese male in no acute distress. Well-nourished. - EYES: EOMI. Anicteric. - HENT: Moist mucous membranes. - LUNGS: Clear to auscultation bilaterally, no wheezing or rales - CARDIOVASCULAR: Regular rate and rhythm. No murmur. No JVD. - ABDOMEN: Soft, non-tender and non-distended, significantly edematous scrotum size of bowling ball - EXTREMITIES: 1+ edema. Peripheral pulses 2+. - NEUROLOGIC: No focal neurological deficits. - PSYCHIATRIC: Awake, Alert and oriented x 3. Appropriate mood and affect. - SKIN: No rashes or lesions. Warm. Objective Data Vital Signs Vital Signs: Vital Signs - 24 hr 09/16/25 15:00 09/16/25 16:00 09/16/25 17:00 Temperature Pulse Rate 90 90 88 Respiratory Rate Blood Pressure 122/84 118/80 136/92 H Pulse Oximetry Oxygen Delivery Fraction of Inspired Oxygen 09/16/25 17:45 09/16/25 17:57 09/16/25 17:59 Temperature Pulse Rate 91 95 94 Respiratory Rate 16 Blood Pressure 108/77 106/77 126/71 Pulse Oximetry 99 Oxygen Delivery Fraction of Inspired Oxygen 09/16/25 20:34 09/16/25 22:21 09/17/25 02:10 Temperature 36.2 C L Pulse Rate 85 83 92 Respiratory Rate 20 16 Blood Pressure 130/72 Pulse Oximetry 90 93 94 Oxygen Delivery Room Air Autopap Fraction of Inspired Oxygen 09/17/25 04:03 09/17/25 06:00 09/17/25 08:00 Temperature 36.4 C L Pulse Rate 86 88 Respiratory Rate 16 Blood Pressure 121/89 Pulse Oximetry 94 100 Oxygen Delivery Autopap Room Air Fraction of Inspired Oxygen 09/17/25 09:11 09/17/25 09:45 09/17/25 12:00 Temperature Pulse Rate 97 92 94 Respiratory Rate Blood Pressure Pulse Oximetry Oxygen Delivery Fraction of Inspired Oxygen Intake/Output Intake/Output: Intake & Output 09/14/25 09/15/25 09/16/25 09/17/25 23:59 23:59 23:59 23:59 Intake Total 50 710 Output Total 600 1400 Balance -550 -690 Meds/Results Medications: Active Medications Generic Name Dose Route Start Last Admin Trade Name Freq PRN Reason Stop Dose Admin Apixaban 5 mg 09/16/25 21:45 09/17/25 09:10 Apixaban 5 Mg Tablet PO 5 mg Q12HR ADALBERTO Administration Aspirin 81 mg 09/17/25 09:00 09/17/25 09:10 Aspirin 81 Mg Enteric Tablet PO 81 mg QAM ADALBERTO Administration Furosemide 20 mg 09/17/25 09:00 09/17/25 09:11 Furosemide Inj 40 Mg/4 Ml Vial IV PUSH 20 mg BID ADALBERTO Administration Metoprolol Succinate 25 mg 09/17/25 09:00 09/17/25 09:11 Metoprolol Succinate Ext Rel 25 Mg Tabcr PO 25 mg QAM ADALBERTO Administration Multi-Ingred Cream/Lotion/Oil/Oint 1 applic 09/17/25 09:00 09/17/25 09:11 Eucerin Cream 454 Gm Jar TOPICAL 1 applic DAILY ADALBERTO Administration Sacubitril/Valsartan 1 tab 09/16/25 21:50 09/17/25 09:10 Sacubitril/Valsartan 12-13 Mg Tablet PO 1 tab Q12HR ADALBERTO Administration Radiology Results: ITS Impressions Chest X-Ray 09/17/25 13:37 IMPRESSION: 1. New mild opacities in bilateral lower lung zones including some peribronchial cuffing which could represent mild pulmonary edema or pneumonia. 2. Bandlike opacity right mid to lower lung zone which could represent discoid atelectasis or small amount of fluid along the major and minor fissures. Labs Labs: Laboratory Results - last 24 hr 09/16/25 09/16/25 09/17/25 14:16 15:26 09:51 WBC 8.4 5.7 RBC 4.46 L 4.30 L Hgb 13.7 L 13.0 L Hct 44.8 42.9 MCV 100.4 H 99.8 MCH 30.7 30.2 MCHC 30.6 L 30.3 L RDW 14.6 H 14.7 H Plt Count 113 L 112 L MPV 10.1 9.5 Immature Gran % (Auto) 0.4 Neut % (Auto) 72.4 Lymph % (Auto) 17.3 L [place] % (Auto) 7.3 Eos % (Auto) 2.0 Baso % (Auto) 0.6 Lymph # (Auto) 1.45 [place] # (Auto) 0.6 Eos # (Auto) 0.2 Baso # (Auto) 0.1 Abs Immat Gran (auto) 0.03 Absolute Neuts (auto) 6.1 Absolute Nucleated RBC 0.000 Nucleated RBC % 0.0 % Immature Plt Fraction 1.8 Sodium 142 141 Potassium 4.2 3.7 Chloride 113 H 111 H Carbon Dioxide 20 L 25 Anion Gap 9 5 BUN 21 H D 19 Creatinine 2.34 H 2.28 H Estim Creat Clear Calc 37 40 Estimated GFR 28 L 29 L Glucose 123 H 100 Calcium 8.6 8.3 L Magnesium 2.4 H Total Bilirubin 1.2 AST 20 ALT 14 Alkaline Phosphatase 92 NT-Pro-B Natriuret Pep 8230 H Total Protein 7.7 Albumin 4.1 Urine Color Yellow Urine Appearance Cloudy H Urine pH 6.5 Ur Specific [place] 1.017 Urine Protein 3+ H Urine Glucose (UA) Negative Urine Ketones Negative Ur Blood (Man) 2+ H Urine Nitrate Positive H Urine Bilirubin Negative Urine Urobilinogen 1.0 Add Ur Microanalysis Reviewed Leukocyte Esterase Rfl 2+ H Urine RBC 21-50 H Urine WBC >100 H Ur Squamous Epith Cells None seen Urine Bacteria 4+ H Urine Casts 3-5 Quality VTE Prophylaxis VTE prophylaxis: pharmacologic ordered Hospitalist MIPS Advance Care Plan I have confirmed that the patient's Advanced Care Plan is present, code status is documented, or surrogate decision maker is listed in patient medical record.: Yes Medication Reconciliation I have utilized all available resources to obtain, update and review the patients current medications (includes all prescriptions, OTC, herbals, cannabis, and nutritional supplements).: Yes
[2025-09-18] VITALS (10 sets, daily range): BP systolic 108–128; BP diastolic 79–91; PULSE 73–101; RESP 18; TEMP 36.3–36.8; O2SAT 96–98
[2025-09-18 04:44] LABS: Hematocrit 39.9 % (42.0-52.0); Hemoglobin 12.5 g/dL (14.0-18.0); Immature Granulocyte Percent A 0.1 % (0-0.5); Immature Platelet Fraction Pct 1.8 % (0.9-11.2); Lymphocytes Absolute Auto 1.93 K/mm3 (0.9-3.2); Mean Corpuscular HGB Conc 31.3 g/dl (32-36); Mean Corpuscular Hemoglobin 30.5 pg (26-34); Mean Corpuscular Volume 97.3 fl (80-100); Nucleated Red Blood Cells Absolute Auto 0.000 K/mm3 (0.0-0.012); Nucleated Red Blood Cells Perc 0.0 % (0.0-0.2); Platelet Count Result 116 k/mm3 (150-375); Red Blood Count 4.10 M/mm3 (4.6-6.20); White Blood Count 6.8 K/mm3 (4.5-10.0)
[2025-09-18 04:56] LABS: Anion Gap 7 mmol/L (4-12); Blood Urea Nitrogen 19 mg/dL (9-20); Calcium 8.3 mg/dL (8.4-10.2); Carbon Dioxide 24 mmol/L (22-30); Chloride 109 mmol/L (98-107); Estimated CRCL calculation 38 ml/min; Estimated Glomerular Filt Rate 27; Glucose 111 mg/dL (65-110); Magnesium 2.2 mg/dL (1.6-2.3); Potassium 3.8 mmol/L (3.4-5.0); Sodium 140 mmol/L (137-145)
[2025-09-18 05:15] LABS: Procalcitonin 0.1 ng/mL
[2025-09-18] MEDS: ASPIRIN 81 MG ENTERIC TABLET PO (08:31)
[2025-09-18] MEDS: SACUBITRIL/VALSARTAN 12-13 MG TABLET 1 TAB PO ×2 (08:31→20:25)
[2025-09-18] MEDS: APIXABAN 5 MG TABLET PO ×2 (08:31→20:25)
[2025-09-18] MEDS: METOPROLOL SUCCINATE EXT REL 25 MG TABCR PO (08:31)
[2025-09-18] MEDS: FUROSEMIDE INJ 40 MG/4 ML VIAL 20 MG IV PUSH ×2 (08:31→17:42)
[2025-09-18] MEDS: EUCERIN CREAM 454 GM JAR 1 APPLIC TOPICAL (08:32)
--- NOTE | 2025-09-18 11:53 | P.PNIM_ITS ---
Progress Note: A&P Assessment and Plan (1) Biventricular congestive heart failure: Code(s): I50.82 - Biventricular heart failure Status: Acute Plan Scrotal edema Heart failure reduced ejection fraction exacerbation -no leukocytosis, and received a dose of Rocephin, discontinue antibiotics for now, monitor fever curve, procalcitonin negative -diuresis: Lasix 20 mg IV b.i.d. 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 no statin -PERLITA -DMII? monitor glucose, no home insulin or DMII meds -bladder atony: suprapubic catheter exchanged during most recent hospitalization by urologist -chronic left heel pressure ulcer Diet: Healthy diet with fluid restriction 1500cc DVT ppx: Eliquis Code status: Full code Disposition: home >2 days Time Spent With Patient Time: 35 minutes Subjective Date/time seen: 09/18/25 11:53 Interval history: Patient seen examined. The scrotum is less swollen. He still very edematous and will benefit from IV diuretics. Will continue Lasix. Patient encouraged to get out of bed. Patient has fever, chills, nausea vomiting or diarrhea. Review of Systems Review of Systems: 10 point ROS complete, negative other th an what is specified in HPI. Exam Narrative: - GENERAL: Pleasant obese male in no ac [place] distress - EYES: EOMI. Anicteric. - HENT: Moist mucous membranes. - LUNGS: Clear to auscultation bilateral ly, no wheezing or rales - CARDIOVASCULAR: Regular rate and rhyth m. No murmur. No JVD. - ABDOMEN: Soft, non-tender and non-dist ended, significantly edematous scrotum size of bowling ball, less tight - EXTREMITIES: 2+ edema. Peripheral puls es 2+. - NEUROLOGIC: No focal neurological defi cits. - PSYCHIATRIC: Awake, Alert and oriented x 3. Objective Data Vital Signs Vital Signs: Vital Signs - 24 hr 09/17/25 12:00 09/17/25 14:00 09/17/25 16:00 Temperature 36.6 C Pulse Rate 94 88 97 Respiratory Rate 16 Blood Pressure 130/74 Pulse Oximetry 97 Oxygen Delivery Fraction of Inspired Oxygen 09/17/25 19:51 09/17/25 20:00 09/17/25 22:28 Temperature 36.8 C Pulse Rate 100 98 96 Respiratory Rate 20 18 Blood Pressure 118/84 Pulse Oximetry 97 98 Oxygen Delivery Room Air Fraction of Inspired Oxygen 21 09/18/25 00:00 09/18/25 04:00 09/18/25 06:00 Temperature 36.3 C L Pulse Rate 97 96 73 Respiratory Rate 18 Blood Pressure 126/91 H Pulse Oximetry 98 Oxygen Delivery Fraction of Inspired Oxygen 09/18/25 08:00 09/18/25 08:31 Temperature Pulse Rate 101 H Respiratory Rate Blood Pressure Pulse Oximetry Oxygen Delivery Room Air Fraction of Inspired Oxygen Intake/Output Intake/Output: Intake & Output 09/15/25 09/16/25 09/17/25 09/18/25 23:59 23:59 23:59 23:59 Intake Total 50 1220 600 Output Total 600 2650 3600 Balance -550 1430 -3000 Meds/Results Medications: Active Medications Generic Name Dose Route Start Last Admin Trade Name Famq PRN Reason Stop Dose Admin Apixaban 5 mg 09/16/25 21:45 09/18/25 08:31 Apixaban 5 Mg Tablet PO 5 mg Q12HR ADALBERTO Administration Aspirin 81 mg 09/17/25 09:00 09/18/25 08:31 Aspirin 81 Mg Enteric Tablet PO 81 mg QAM ADALBERTO Administration Furosemide 20 mg 09/17/25 09:00 09/18/25 08:31 Furosemide Inj 40 Mg/4 Ml Vial IV PUSH 20 mg BID ADALBERTO Administration Metoprolol Succinate 25 mg 09/17/25 09:00 09/18/25 08:31 Metoprolol Succinate Ext Rel 25 Mg Tabcr PO 25 mg QAM ADALBERTO Administration Multi-Ingred Cream/Lotion/Oil/Oint 1 applic 09/17/25 09:00 09/18/25 08:32 Eucerin Cream 454 Gm Jar TOPICAL 1 applic DAILY ADALBERTO Administration Sacubitril/Valsartan 1 tab 09/16/25 21:50 09/18/25 08:31 Sacubitril/Valsartan 12-13 Mg Tablet PO 1 tab Q12HR ADALBERTO Administration Radiology Results: ITS Impressions Chest X-Ray 09/17/25 13:37 IMPRESSION: 1. New mild opacities in bilateral lower lung zones including some peribronchial cuffing which could represent mild pulmonary edema or pneumonia. 2. Bandlike opacity right mid to lower lung zone which could represent discoid atelectasis or small amount of fluid along the major and minor fissures. Labs Labs: Laboratory Results - last 24 hr 09/18/25 04:25 WBC 6.8 RBC 4.10 L Hgb 12.5 L Hct 39.9 L MCV 97.3 MCH 30.5 MCHC 31.3 L RDW 14.5 Plt Count 116 L MPV 9.5 Immature Gran % (Auto) 0.1 Neut % (Auto) 58.4 Lymph % (Auto) 28.3 [place] % (Auto) 8.5 Eos % (Auto) 4.0 Baso % (Auto) 0.7 Lymph # (Auto) 1.93 [place] # (Auto) 0.6 Eos # (Auto) 0.3 Baso # (Auto) 0.1 Abs Immat Gran (auto) 0.01 Absolute Neuts (auto) 4.0 Absolute Nucleated RBC 0.000 Nucleated RBC % 0.0 % Immature Plt Fraction 1.8 Sodium 140 Potassium 3.8 Chloride 109 H Carbon Dioxide 24 Anion Gap 7 BUN 19 Creatinine 2.37 H Estim Creat Clear Calc 38 Estimated GFR 27 L Glucose 111 H Calcium 8.3 L Magnesium 2.2 Procalcitonin 0.1
[2025-09-19] VITALS (11 sets, daily range): BP systolic 92–131; BP diastolic 64–89; PULSE 82–99; RESP 16–20; TEMP 36.2–36.7; O2SAT 94–99
[2025-09-19 05:01] LABS: Anion Gap 6 mmol/L (4-12); Blood Urea Nitrogen 18 mg/dL (9-20); Calcium 8.2 mg/dL (8.4-10.2); Carbon Dioxide 26 mmol/L (22-30); Chloride 107 mmol/L (98-107); Estimated CRCL calculation 38 ml/min; Estimated Glomerular Filt Rate 27; Glucose 103 mg/dL (65-110); Magnesium 2.1 mg/dL (1.6-2.3); Potassium 3.9 mmol/L (3.4-5.0); Sodium 139 mmol/L (137-145)
[2025-09-19] MEDS: APIXABAN 5 MG TABLET PO ×2 (08:05→21:05)
[2025-09-19] MEDS: FUROSEMIDE INJ 40 MG/4 ML VIAL 20 MG IV PUSH ×2 (08:06→16:42)
[2025-09-19] MEDS: ASPIRIN 81 MG ENTERIC TABLET PO (08:06)
[2025-09-19] MEDS: SACUBITRIL/VALSARTAN 12-13 MG TABLET 1 TAB PO ×2 (08:06→21:05)
[2025-09-19] MEDS: EUCERIN CREAM 454 GM JAR 1 APPLIC TOPICAL (08:06)
[2025-09-19] MEDS: METOPROLOL SUCCINATE EXT REL 25 MG TABCR PO (08:06)
--- NOTE | 2025-09-19 09:08 | PM.IMPN ---
Progress Note: A&P Assessment and Plan (1) Edema of scrotum: Code(s): N50.89 - Other specified disorders of the male genital organs Status: Acute Plan Scrotal edema Heart failure reduced ejection fraction exacerbation -no leukocytosis, and received a dose of Rocephin, discontinue antibiotics for now, monitor fever curve, procalcitonin negative -diuresis: Lasix 20 mg IV b.i.d. -monitor strict I&O: net -4.365L -BNP 8230 -150->146.8->144kg. He still edematous and thinks that 144 is not baseline. 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 will give nephrology referral on discharge -paroxysmal atrial ablation: Anticoagulation Eliquis, rate control metoprolol -CAD? no statin -PERLITA -DMII? monitor glucose, no home insulin or DMII meds -bladder atony: suprapubic catheter exchanged during most recent hospitalization by urologist -chronic left heel pressure ulcer Diet: Healthy diet with fluid restriction 1500cc DVT ppx: Eliquis Code status: Full code Disposition: home >2 days Time Spent With Patient Time: 35 minutes Subjective Date/time seen: 09/19/25 09:08 Interval history: Patient seen examined. He is down to 144kg which was the weight when he discharged last time. He still feels he has significant fluid. Will continue diuresis. His labs are stable. He denies fever, chills, nausea vomiting, diarrhea. We discussed having outpatient Nephrology follow-up. He states last time he was only discharged with fluid restriction and he likely will need Lasix Rx on discharge to help prevent fluid reaccumulation. Review of Systems Review of Systems: 10 point ROS complete, negative other than what is specified in HPI. Exam Narrative: - GENERAL: Pleasant obese male in no acute distress - EYES: EOMI. Anicteric. - HENT: Moist mucous membranes. - LUNGS: Clear to auscultation bilaterally, no wheezing or rales - CARDIOVASCULAR: Regular rate and rhythm. No murmur. No JVD. - ABDOMEN: Soft, non-tender and non-distended, significantly edematous scrotum size of bowling ball, significantly improved - EXTREMITIES: 1+ edema. Peripheral pulses 2+. Chronic stasis dermatitis skin changes - NEUROLOGIC: No focal neurological deficits. - PSYCHIATRIC: Awake, Alert and oriented x 3. Objective Data Vital Signs Vital Signs: Vital Signs - 24 hr 09/18/25 11:29 09/18/25 12:00 09/18/25 14:00 Temperature 36.4 C Pulse Rate 98 97 Respiratory Rate 18 Blood Pressure 128/89 Pulse Oximetry 97 Oxygen Delivery Room Air Fraction of Inspired Oxygen 09/18/25 16:00 09/18/25 20:00 09/18/25 20:00 Temperature Pulse Rate 94 94 98 Respiratory Rate 18 Blood Pressure Pulse Oximetry 97 Oxygen Delivery Room Air Fraction of Inspired Oxygen 21 09/18/25 22:27 09/19/25 00:00 09/19/25 02:14 Temperature 36.8 C Pulse Rate 96 92 Respiratory Rate 18 Blood Pressure 108/79 Pulse Oximetry 96 Oxygen Delivery Autopap Fraction of Inspired Oxygen 09/19/25 04:00 09/19/25 06:00 09/19/25 08:00 Temperature 36.2 C L Pulse Rate 82 89 Respiratory Rate 16 Blood Pressure 131/85 Pulse Oximetry 94 Oxygen Delivery Room Air Fraction of Inspired Oxygen 09/19/25 08:06 Temperature Pulse Rate 89 Respiratory Rate Blood Pressure Pulse Oximetry Oxygen Delivery Fraction of Inspired Oxygen Intake/Output Intake/Output: Intake & Output 09/16/25 09/17/25 09/18/25 09/19/25 23:59 23:59 23:59 23:59 Intake Total 50 1220 1110 300 Output Total 600 2650 5375 3400 [facility]550 -1430 -4265 -3100 Meds/Results Medications: Active Medications Generic Name Dose Route Start Last Admin Trade Name Freq PRN Reason Stop Dose Admin Apixaban 5 mg 09/16/25 21:45 09/19/25 08:05 Apixaban 5 Mg Tablet PO 5 mg Q12HR ADALBERTO Administration Aspirin 81 mg 09/17/25 09:00 09/19/25 08:06 Aspirin 81 Mg Enteric Tablet PO 81 mg QAM ADALBERTO Administration Furosemide 20 mg 09/17/25 09:00 09/19/25 08:06 Furosemide Inj 40 Mg/4 Ml Vial IV PUSH 20 mg BID ADALBERTO Administration Metoprolol Succinate 25 mg 09/17/25 09:00 09/19/25 08:06 Metoprolol Succinate Ext Rel 25 Mg Tabcr PO 25 mg QAM ADALBERTO Administration Multi-Ingred Cream/Lotion/Oil/Oint 1 applic 09/17/25 09:00 09/19/25 08:06 Eucerin Cream 454 Gm Jar TOPICAL 1 applic DAILY ADALBERTO Administration Sacubitril/Valsartan 1 tab 09/16/25 21:50 09/19/25 08:06 Sacubitril/Valsartan 12-13 Mg Tablet PO 1 tab Q12HR ADALBERTO Administration Radiology Results: ITS Impressions Chest X-Ray 09/17/25 13:37 IMPRESSION: 1. New mild opacities in bilateral lower lung zones including some peribronchial cuffing which could represent mild pulmonary edema or pneumonia. 2. Bandlike opacity right mid to lower lung zone which could represent discoid atelectasis or small amount of fluid along the major and minor fissures. Labs Labs: Laboratory Results - last 24 hr 09/19/25 04:20 Sodium 139 Potassium 3.9 Chloride 107 Carbon Dioxide 26 Anion Gap 6 BUN 18 Creatinine 2.38 H Estim Creat Clear Calc 38 Estimated GFR 27 L Glucose 103 Calcium 8.2 L Magnesium 2.1
[2025-09-20] VITALS (9 sets, daily range): BP systolic 97–107; BP diastolic 65–79; PULSE 88–96; RESP 16–20; TEMP 36.1–36.6; O2SAT 93–97
[2025-09-20 06:07] LABS: Anion Gap 5 mmol/L (4-12); Blood Urea Nitrogen 22 mg/dL (9-20); Calcium 8.4 mg/dL (8.4-10.2); Carbon Dioxide 28 mmol/L (22-30); Chloride 104 mmol/L (98-107); Estimated CRCL calculation 38 ml/min; Estimated Glomerular Filt Rate 28; Glucose 111 mg/dL (65-110); Potassium 3.8 mmol/L (3.4-5.0); Sodium 137 mmol/L (137-145)
[2025-09-20] MEDS: SACUBITRIL/VALSARTAN 12-13 MG TABLET 1 TAB PO ×2 (08:49→20:48)
[2025-09-20] MEDS: APIXABAN 5 MG TABLET PO ×2 (08:49→20:48)
[2025-09-20] MEDS: METOPROLOL SUCCINATE EXT REL 25 MG TABCR PO (08:49)
[2025-09-20] MEDS: ASPIRIN 81 MG ENTERIC TABLET PO (08:49)
[2025-09-20] MEDS: EUCERIN CREAM 454 GM JAR 1 APPLIC TOPICAL (08:50)
[2025-09-20] MEDS: FUROSEMIDE INJ 40 MG/4 ML VIAL 20 MG IV PUSH ×2 (09:59→17:10)
--- NOTE | 2025-09-20 12:31 | P.PNIM_ITS ---
Progress Note: A&P Assessment and Plan (1) Edema of scrotum: Code(s): N50.89 - Other specified disorders of the male genital organs Status: Acute Plan Scrotal edema Heart failure reduced ejection fraction exacerbation -no leukocytosis, and received a dose of Rocephin, discontinue antibiotics for now, monitor fever curve, procalcitonin negative -diuresis: Lasix 20 mg IV b.i.d. -monitor strict I&O: net -9.6L -BNP 8230 -150->146.8->144->140kg. 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 will give nephrology referral on discharge -paroxysmal atrial ablation: Anticoagulation Eliquis, rate control metoprolol -CAD? no statin -PERLITA -DMII? monitor glucose, no home insulin or DMII meds -bladder atony: suprapubic catheter exchanged during most recent hospitalization by urologist -chronic left heel pressure ulcer Diet: Healthy diet with fluid restriction 1500cc DVT ppx: Eliquis Code status: Full code Disposition: home >2 days Time Spent With Patient Time: 35 minutes Subjective Date/time seen: 09/20/25 12:31 Interval history: Patient seen examined. Weight down to 140 kg. He states his baseline weight is 130 kg. Who continue diuresing. He is responding well. Net -9.6L. He denies fever, chills, nausea vomiting continue PT feels better today. Review of Systems Review of Systems: 10 point ROS complete, negative other th an what is specified in HPI. Exam Narrative: - GENERAL: Pleasant obese male in no ac [place] distress - EYES: EOMI. - HENT: Moist mucous membranes. - LUNGS: Clear to auscultation bilateral ly - CARDIOVASCULAR: Regular rate and rhyth m - ABDOMEN: Soft, non-tender and non-dist ended, significantly edematous scrotum size of bowling ball, improving - EXTREMITIES: 1+ edema. Peripheral puls es 2+. Chronic stasis dermatitis skin changes - NEUROLOGIC: No focal neurological defi cits. - PSYCHIATRIC: Awake, Alert and oriented x 3. Objective Data Vital Signs Vital Signs: Vital Signs - 24 hr 09/19/25 14:00 09/19/25 16:00 09/19/25 20:00 Temperature 36.7 C Pulse Rate 93 91 Respiratory Rate 18 Blood Pressure 92/64 L Pulse Oximetry 99 Oxygen Delivery Room Air 09/19/25 20:00 09/19/25 20:35 09/19/25 21:33 Temperature 36.5 C Pulse Rate 99 96 Respiratory Rate 20 Blood Pressure 117/89 Pulse Oximetry 97 97 Oxygen Delivery Room Air 09/20/25 00:00 09/20/25 02:00 09/20/25 05:47 Temperature 36.1 C L Pulse Rate 91 88 Respiratory Rate 20 Blood Pressure 107/79 Pulse Oximetry 97 Oxygen Delivery Autopap 09/20/25 08:49 09/20/25 08:56 Temperature Pulse Rate 88 Respiratory Rate Blood Pressure Pulse Oximetry Oxygen Delivery Room Air Intake/Output Intake/Output: Intake & Output 09/17/25 09/18/25 09/19/25 09/20/25 23:59 23:59 23:59 23:59 Intake Total 1220 1110 1170 530 Output Total 2650 5375 3950 900 [facility] -1430 -4265 -2780 -370 Meds/Results Medications: Active Medications Generic Name Dose Route Start Last Admin Trade Name Freq PRN Reason Stop Dose Admin Apixaban 5 mg 09/16/25 21:45 09/20/25 08:49 Apixaban 5 Mg Tablet PO 5 mg Q12HR ADALBERTO Administration Aspirin 81 mg 09/17/25 09:00 09/20/25 08:49 Aspirin 81 Mg Enteric Tablet PO 81 mg QAM ADALBERTO Administration Furosemide 20 mg 09/17/25 09:00 09/20/25 09:59 Furosemide Inj 40 Mg/4 Ml Vial IV PUSH 20 mg BID ADALBERTO Administration Metoprolol Succinate 25 mg 09/17/25 09:00 09/20/25 08:49 Metoprolol Succinate Ext Rel 25 Mg Tabcr PO 25 mg QAM ADALBERTO Administration Multi-Ingred Cream/Lotion/Oil/Oint 1 applic 09/17/25 09:00 09/20/25 08:50 Eucerin Cream 454 Gm Jar TOPICAL 1 applic DAILY ADALBERTO Administration Sacubitril/Valsartan 1 tab 09/16/25 21:50 09/20/25 08:49 Sacubitril/Valsartan 12-13 Mg Tablet PO 1 tab Q12HR ADALBERTO Administration Radiology Results: ITS Impressions Chest X-Ray 09/17/25 13:37 IMPRESSION: 1. New mild opacities in bilateral lower lung zones including some peribronchial cuffing which could represent mild pulmonary edema or pneumonia. 2. Bandlike opacity right mid to lower lung zone which could represent discoid atelectasis or small amount of fluid along the major and minor fissures. Labs Labs: Laboratory Results - last 24 hr 09/20/25 05:34 Sodium 137 Potassium 3.8 Chloride 104 Carbon Dioxide 28 Anion Gap 5 BUN 22 H Creatinine 2.35 H Estim Creat Clear Calc 38 Estimated GFR 28 L Glucose 111 H Calcium 8.4
[2025-09-21] VITALS (10 sets, daily range): BP systolic 94–112; BP diastolic 61–81; PULSE 90–97; RESP 14–16; TEMP 36.1–37.1; O2SAT 95–99
[2025-09-21 05:55] LABS: Anion Gap 5 mmol/L (4-12); Blood Urea Nitrogen 22 mg/dL (9-20); Calcium 8.0 mg/dL (8.4-10.2); Carbon Dioxide 27 mmol/L (22-30); Chloride 105 mmol/L (98-107); Estimated CRCL calculation 38 ml/min; Estimated Glomerular Filt Rate 28; Glucose 122 mg/dL (65-110); Potassium 3.7 mmol/L (3.4-5.0); Sodium 137 mmol/L (137-145)
[2025-09-21] MEDS: SACUBITRIL/VALSARTAN 12-13 MG TABLET 1 TAB PO ×2 (09:06→21:07)
[2025-09-21] MEDS: APIXABAN 5 MG TABLET PO ×2 (09:06→21:06)
[2025-09-21] MEDS: ASPIRIN 81 MG ENTERIC TABLET PO (09:06)
[2025-09-21] MEDS: FUROSEMIDE INJ 40 MG/4 ML VIAL 20 MG IV PUSH ×2 (09:07→12:05)
[2025-09-21] MEDS: EUCERIN CREAM 454 GM JAR 1 APPLIC TOPICAL (09:07)
[2025-09-21] MEDS: METOPROLOL SUCCINATE EXT REL 25 MG TABCR PO (09:07)
--- NOTE | 2025-09-21 10:49 | PM.IMPN ---
Progress Note: A&P Assessment and Plan (1) Edema of scrotum: Code(s): N50.89 - Other specified disorders of the male genital organs Status: Acute Plan Scrotal edema Heart failure reduced ejection fraction exacerbation -no leukocytosis, and received a dose of Rocephin, discontinue antibiotics for now, monitor fever curve, procalcitonin negative -diuresis: Lasix 20->40 mg IV b.i.d. -monitor strict I&O: net -9.9L -renal function and blood pressure stable -BNP 8230 -150->146.8->144->140kg, unchanged last 24 hours. He states his baseline weight is 130kg at previous PCP visit -reiterated 1500cc fluid restriction to patient and RN -patient has biventricular heart failure with EF of 20% -for heart failure regimen: On Entresto, beta-naeem, aspirin -similar scrotal edema during hospitalization 08/30-09/03 Chronic conditions -CKD 3B: Cr baseline 2.2-2.5, on presentation 2.32, stable. will give nephrology referral on discharge -paroxysmal atrial fibrillation: Anticoagulation Eliquis, rate control metoprolol -CAD? no statin -PERLITA -DMII? monitor glucose, no home insulin or DMII meds -bladder atony: chronic suprapubic catheter exchanged during most recent hospitalization by urologist -chronic left heel pressure ulcer Diet: Healthy diet with fluid restriction 1500cc DVT ppx: Eliquis Code status: Full code Disposition: home >2 days Time Spent With Patient Time: 35 minutes Subjective Date/time seen: 09/21/25 10:49 Interval history: Patient seen and examined. He only had net negative -390 cc yesterday total weight is unchanged around 140kg. Input documented 2510cc despite 1500 fluid restriction. Creatinine stable and blood pressure stable. Will increase Lasix to 40 mg IV b.i.d. and monitor. He feels well. Denies fever, chills, nausea vomiting, diarrhea. Anticipate discharge Tuesday. Review of Systems Review of Systems: 10 point ROS complete, negative other than what is specified in HPI. Exam Narrative: - GENERAL: Pleasant obese male in no acute distress - EYES: EOMI. - HENT: Moist mucous membranes. - LUNGS: Clear to auscultation bilaterally - CARDIOVASCULAR: Regular rate and rhythm - ABDOMEN: Soft, non-tender and non-distended, significantly edematous scrotum however appears flaccid, no longer tight. Suprapubic catheter in place - EXTREMITIES: 1+ edema. Peripheral pulses 2+. Chronic stasis dermatitis skin changes - NEUROLOGIC: No focal neurological deficits. - PSYCHIATRIC: Awake, Alert and oriented x 3. Objective Data Vital Signs Vital Signs: Vital Signs - 24 hr 09/20/25 12:06 09/20/25 14:00 09/20/25 16:05 Temperature 36.6 C Pulse Rate 91 95 94 Respiratory Rate 16 Blood Pressure 97/65 L Pulse Oximetry 93 Oxygen Delivery 09/20/25 20:45 09/20/25 20:45 09/20/25 22:00 Temperature 36.3 C L Pulse Rate 94 92 Respiratory Rate 20 Blood Pressure 107/70 Pulse Oximetry 96 96 Oxygen Delivery Room Air 09/21/25 00:00 09/21/25 04:05 09/21/25 04:55 Temperature 36.1 C L Pulse Rate 94 94 90 Respiratory Rate 16 Blood Pressure 112/81 Pulse Oximetry 99 Oxygen Delivery 09/21/25 08:00 09/21/25 08:00 09/21/25 09:07 Temperature Pulse Rate 96 97 Respiratory Rate Blood Pressure Pulse Oximetry Oxygen Delivery Room Air Intake/Output Intake/Output: Intake & Output 09/18/25 09/19/25 09/20/25 09/21/25 23:59 23:59 23:59 23:59 Intake Total 1110 1170 2570 470 Output Total 5375 3950 2300 1500 [facility]4265 -9420 270 1030 Meds/Results Medications: Active Medications Generic Name Dose Route Start Last Admin Trade Name Freq PRN Reason Stop Dose Admin Apixaban 5 mg 09/16/25 21:45 09/21/25 09:06 Apixaban 5 Mg Tablet PO 5 mg Q12HR ADALBERTO Administration Aspirin 81 mg 09/17/25 09:00 09/21/25 09:06 Aspirin 81 Mg Enteric Tablet PO 81 mg QAM ADALBERTO Administration Metoprolol Succinate 25 mg 09/17/25 09:00 09/21/25 09:07 Metoprolol Succinate Ext Rel 25 Mg Tabcr PO 25 mg QAM ADALBERTO Administration Multi-Ingred Cream/Lotion/Oil/Oint 1 applic 09/17/25 09:00 09/21/25 09:07 Eucerin Cream 454 Gm Jar TOPICAL 1 applic DAILY ADALBERTO Administration Sacubitril/Valsartan 1 tab 09/16/25 21:50 09/21/25 09:06 Sacubitril/Valsartan 12-13 Mg Tablet PO 1 tab Q12HR ADALBERTO Administration Radiology Results: ITS Impressions Chest X-Ray 09/17/25 13:37 IMPRESSION: 1. New mild opacities in bilateral lower lung zones including some peribronchial cuffing which could represent mild pulmonary edema or pneumonia. 2. Bandlike opacity right mid to lower lung zone which could represent discoid atelectasis or small amount of fluid along the major and minor fissures. Labs Labs: Laboratory Results - last 24 hr 09/21/25 05:23 Sodium 137 Potassium 3.7 Chloride 105 Carbon Dioxide 27 Anion Gap 5 BUN 22 H Creatinine 2.32 H Estim Creat Clear Calc 38 Estimated GFR 28 L Glucose 122 H Calcium 8.0 L
[2025-09-21] MEDS: FUROSEMIDE INJ 40 MG/4 ML VIAL IV PUSH (16:50)
[2025-09-22] VITALS (10 sets, daily range): BP systolic 113–123; BP diastolic 70–91; PULSE 92–99; RESP 18; TEMP 36.5–36.6; O2SAT 97–99
[2025-09-22 06:12] LABS: Anion Gap 5 mmol/L (4-12); Blood Urea Nitrogen 24 mg/dL (9-20); Calcium 8.2 mg/dL (8.4-10.2); Carbon Dioxide 28 mmol/L (22-30); Chloride 104 mmol/L (98-107); Estimated CRCL calculation 39 ml/min; Estimated Glomerular Filt Rate 29; Glucose 120 mg/dL (65-110); Magnesium 2.1 mg/dL (1.6-2.3); Potassium 3.6 mmol/L (3.4-5.0); Sodium 137 mmol/L (137-145)
[2025-09-22] MEDS: APIXABAN 5 MG TABLET PO ×2 (09:58→21:24)
[2025-09-22] MEDS: SACUBITRIL/VALSARTAN 12-13 MG TABLET 1 TAB PO ×2 (09:58→21:24)
[2025-09-22] MEDS: FUROSEMIDE INJ 40 MG/4 ML VIAL IV PUSH ×2 (09:58→17:50)
[2025-09-22] MEDS: METOPROLOL SUCCINATE EXT REL 25 MG TABCR PO (09:58)
[2025-09-22] MEDS: ASPIRIN 81 MG ENTERIC TABLET PO (09:58)
[2025-09-22] MEDS: EUCERIN CREAM 454 GM JAR 1 APPLIC TOPICAL (09:59)
--- NOTE | 2025-09-22 11:38 | P.PNIM_ITS ---
Progress Note: A&P Assessment and Plan (1) Edema of scrotum: Code(s): N50.89 - Other specified disorders of the male genital organs Status: Acute Plan Scrotal edema Heart failure reduced ejection fraction exacerbation -no leukocytosis, and received a dose of Rocephin, discontinue antibiotics for now, monitor fever curve, procalcitonin negative -diuresis: Lasix 40 mg IV b.i.d. -monitor strict I&O: total net -12L -renal function and blood pressure stable -BNP 8230 -150->146.8->144->140->136kg. He states his baseline weight is 130kg at previous PCP visit -1500cc fluid restriction -patient has biventricular heart failure with EF of 20% -for heart failure regimen: On Entresto, beta-naeem, aspirin -similar scrotal edema during hospitalization 08/30-09/03 Chronic conditions -CKD 3B: Cr baseline 2.2-2.5, on presentation 2.23, stable. will give nephrology referral on discharge -paroxysmal atrial fibrillation: Anticoagulation Eliquis, rate control metoprolol -CAD? no statin -PERLITA -DMII? monitor glucose, no home insulin or DMII meds -bladder atony: chronic suprapubic catheter exchanged during most recent hospitalization by urologist -chronic left heel pressure ulcer Diet: Healthy diet with fluid restriction 1500cc DVT ppx: Eliquis Code status: Full code Disposition: home tomorrow Time Spent With Patient Time: 35 minutes Subjective Date/time seen: 09/22/25 11:38 Interval history: Patient seen and examined. He is doing well no new complaints. After increasing Lasix to 40 mg twice daily his creatinine improved to 2.23. Net -12 L. weight down to 136 kg. Will continue the IV lasix 40 mg strength. Plan for discharge home tomorrow on p.o. Lasix. He denies fever, chills, nausea vomiting and diarrhea. He agrees with plan Review of Systems Review of Systems: 10 point ROS complete, negative other th an what is specified in HPI. Exam Narrative: - GENERAL: Pleasant obese male in no ac mi'kmaq distress - EYES: EOMI. - HENT: Moist mucous membranes. - LUNGS: Clear to auscultation bilateral ly - CARDIOVASCULAR: Regular rate and rhyth m - ABDOMEN: Soft, non-tender and non-dist ended, significantly edematous scrotum however appears flaccid, no longer tight. Suprapubic catheter in place - EXTREMITIES: 1+ edema, appears to be i mproving. Peripheral pulses 2+. Chronic stasis dermatitis skin changes - NEUROLOGIC: No focal neurological defi cits. - PSYCHIATRIC: Awake, Alert and oriented x 3. Objective Data Vital Signs Vital Signs: Vital Signs - 24 hr 09/21/25 12:00 09/21/25 13:53 09/21/25 16:00 Temperature 37.1 C Pulse Rate 96 95 Respiratory Rate 14 Blood Pressure 97/66 L Pulse Oximetry Oxygen Delivery 09/21/25 20:00 09/21/25 20:00 09/21/25 21:12 Temperature 36.3 C L Pulse Rate 95 94 Respiratory Rate 16 Blood Pressure 94/61 L Pulse Oximetry 95 Oxygen Delivery Room Air 09/22/25 00:00 09/22/25 04:00 09/22/25 04:16 Temperature 36.6 C Pulse Rate 95 99 96 Respiratory Rate 18 Blood Pressure 123/81 Pulse Oximetry 98 Oxygen Delivery 09/22/25 08:00 09/22/25 09:58 Temperature Pulse Rate 94 96 Respiratory Rate Blood Pressure Pulse Oximetry Oxygen Delivery Intake/Output Intake/Output: Intake & Output 09/19/25 09/20/25 09/21/25 09/22/25 23:59 23:59 23:59 23:59 Intake Total 1170 2570 2182 120 Output Total 3950 2300 3100 2350 Balance -2780 706 -697 -3646 Meds/Results Medications: Active Medications Generic Name Dose Route Start Last Admin Trade Name Famq PRN Reason Stop Dose Admin Apixaban 5 mg 09/16/25 21:45 09/22/25 09:58 Apixaban 5 Mg Tablet PO 5 mg Q12HR ADALBERTO Administration Aspirin 81 mg 09/17/25 09:00 09/22/25 09:58 Aspirin 81 Mg Enteric Tablet PO 81 mg QAM ADALBERTO Administration Furosemide 40 mg 09/21/25 17:00 09/22/25 09:58 Furosemide Inj 40 Mg/4 Ml Vial IV PUSH 40 mg BID ADALBERTO Administration Metoprolol Succinate 25 mg 09/17/25 09:00 09/22/25 09:58 Metoprolol Succinate Ext Rel 25 Mg Tabcr PO 25 mg QAM ADALBERTO Administration Multi-Ingred Cream/Lotion/Oil/Oint 1 applic 09/17/25 09:00 09/22/25 09:59 Eucerin Cream 454 Gm Jar TOPICAL 1 applic DAILY AADLBERTO Administration Sacubitril/Valsartan 1 tab 09/16/25 21:50 09/22/25 09:58 Sacubitril/Valsartan 12-13 Mg Tablet PO 1 tab Q12HR ADALBERTO Administration Radiology Results: ITS Impressions Chest X-Ray 09/17/25 13:37 IMPRESSION: 1. New mild opacities in bilateral lower lung zones including some peribronchial cuffing which could represent mild pulmonary edema or pneumonia. 2. Bandlike opacity right mid to lower lung zone which could represent discoid atelectasis or small amount of fluid along the major and minor fissures. Labs Labs: Laboratory Results - last 24 hr 09/22/25 05:31 Sodium 137 Potassium 3.6 Chloride 104 Carbon Dioxide 28 Anion Gap 5 BUN 24 H Creatinine 2.23 H Estim Creat Clear Calc 39 Estimated GFR 29 L Glucose 120 H Calcium 8.2 L Magnesium 2.1
[2025-09-23] VITALS: PULSE 94
[2025-09-23 04:00] VITALS: PULSE 94
[2025-09-23 05:22] LABS: Anion Gap 5 mmol/L (4-12); Blood Urea Nitrogen 26 mg/dL (9-20); Calcium 8.4 mg/dL (8.4-10.2); Carbon Dioxide 32 mmol/L (22-30); Chloride 102 mmol/L (98-107); Estimated CRCL calculation 34 ml/min; Estimated Glomerular Filt Rate 25; Glucose 124 mg/dL (65-110); Potassium 4.0 mmol/L (3.4-5.0); Sodium 139 mmol/L (137-145)
[2025-09-23 06:00] VITALS: BP 119/83; PULSE 90; RESP 18; TEMP 36.3; O2SAT 100
[2025-09-23 08:00] VITALS: PULSE 9
[2025-09-23 09:19] VITALS: PULSE 97
[2025-09-23] MEDS: APIXABAN 5 MG TABLET PO (09:19)
[2025-09-23] MEDS: SACUBITRIL/VALSARTAN 12-13 MG TABLET 1 TAB PO (09:19)
[2025-09-23] MEDS: ASPIRIN 81 MG ENTERIC TABLET PO (09:19)
[2025-09-23] MEDS: METOPROLOL SUCCINATE EXT REL 25 MG TABCR PO (09:19)
[2025-09-23] MEDS: FUROSEMIDE INJ 40 MG/4 ML VIAL IV PUSH (09:19)
[2025-09-23] MEDS: EUCERIN CREAM 454 GM JAR 1 APPLIC TOPICAL (09:20)
--- NOTE | 2025-09-23 10:01 | P.DS_ITS ---
DS: Admitting Diagnosis Discharge Date 09/23/25 Admitting Diagnosis Scrotal edema, fluid overload DS: Discharge Diagnosis Discharge Diagnosis (1) Stage 3b chronic kidney disease: Code(s): N18.32 - Chronic kidney disease, stage 3b Status: Acute (2) Congestive heart failure: Qualifiers: Heart failure type: unspecified Heart failure chronicity: chronic Qualified Code(s): I50.9 - Heart failure, unspecified Code(s): I50.9 - Heart failure, unspecified Status: Chronic (3) Edema of scrotum: Code(s): N50.89 - Other specified disorders of the male genital organs Status: Acute Plan Scrotal edema Heart failure reduced ejection fraction exacerbation -no leukocytosis, and received a dose of Rocephin, discontinue antibiotics for now, monitor fever curve, procalcitonin negative -diuresis: lasix 40mg BID -monitor strict I&O: total net -15.5L -renal function and blood pressure stable -BNP 8230 -150->146.8->144->140->136->131kg. He states his baseline weight is 130kg at previous PCP visit -1800cc fluid restriction -patient has biventricular heart failure with EF of 20% -for heart failure regimen: On Entresto, beta-belle, aspirin -similar scrotal edema during hospitalization 08/30-09/03 Chronic conditions -CKD 3B: Cr baseline 2.2-2.5, on presentation 2.23, stable. will give nephrology referral on discharge -paroxysmal atrial fibrillation: Anticoagulation Eliquis, rate control metoprolol -CAD? no statin -PERLITA -DMII? monitor glucose, no home insulin or DMII meds -bladder atony: chronic suprapubic catheter exchanged during most recent hospitalization by urologist -chronic left heel pressure ulcer -MRSA colonization of bladder Diet: Healthy diet with fluid restriction 1800cc DVT ppx: Eliquis Code status: Full code Disposition: home DS: Summary Hospital Course Reason for hospitalization: Fluid overload and scrotal edema Hospital Course: Patient is a 70-year-old male with past medical history of heart failure reduced ejection fraction, CKD 3B, paroxysmal atrial fibrillation, CAD, PERLITA, type 2 diabetes, neurogenic bladder, chronic left heel pressure ulcer who presents to ED on 09/16/2025 with chief complaint of scrotal edema. Patient was recently hospitalized for the same issue 08/30-09/03, he was diuresed inpatient and sent home without any diuretic. Patient was hospitalized from 09/16-09/23. We treated with IV Lasix and he had an net-15.5 L output. His weight improved from 150 kg down to 131 kg. Creatinine elevated 2.57. We discussed fluid restrict ion of 1800 cc, starting Lasix 40 mg p.o. b.i.d. (Rx sent), and establishing care with neon installer (referral sent) to monitor renal function and fluid status. His scrotal edema has improved significantly. He is already is on GDMT Entresto and beta-belle for his low EF. Will defer to PCP to start Jardiance or aldactone for his heart failure. At time of discharge, his labs are stable, vitals are stable, patient is stable for discharge home. He understands and agrees with plan. Status at Discharge Cognitive/behavioral status at discharge: Baseline Time Spent with Patient Time attestation: Total time spent providing and/or coordinating discharge services: 35 minutes Exam Narrative: - GENERAL: Pleasant obese male in no ac dominic distress - EYES: EOMI. - HENT: Moist mucous membranes. - LUNGS: Clear to auscultation bilateral ly - CARDIOVASCULAR: Regular rate and rhyth m - ABDOMEN: Soft, non-tender and non-dist ended, significantly edematous scrotum however appears flaccid Suprapubic catheter in place - EXTREMITIES: trace edema, appears to b e improving. Peripheral pulses 2+. Chronic stasis dermatitis skin changes - NEUROLOGIC: No focal neurological defi cits. - PSYCHIATRIC: Awake, Alert and oriented x 3. DS: Data Data Completed and Pending Labs on day of discharge: Labs from last 24 hours 09/23/25 04:34 Sodium 139 Potassium 4.0 Chloride 102 Carbon Dioxide 32 H Anion Gap 5 BUN 26 H Creatinine 2.57 H Estim Creat Clear Calc 34 Estimated GFR 25 L Glucose 124 H Calcium 8.4 Imaging Radiologist's impression: CXR 09/17 IMPRESSION: 1. New mild opacities in bilateral lower lung zones including some peribronchial cuffing which could represent mild pulmonary edema or pneumonia. 2. Bandlike opacity right mid to lower lung zone which could represent discoid atelectasis or small amount of fluid along the major and minor fissures. Scrotal ultrasound 08/31/25 IMPRESSION: 1. Small bilateral hydroceles. 2. Scrotal skin thickening. Discharge Plan Discharge Attending physician on discharge: Manda Tesfaye Discharging Clinician: Manda Tesfaye Anticipated Discharge Date/Time: 09/23/25 09:58 Patient Disposition: Home Activity: as tolerated Diet: heart healthy Discharge Instructions: Please restrict fluids to 1800cc/day. Monitor weight daily and continue the Lasix 40 mg pill twice daily. Follow-up with PCP for ongoing management of heart failure. You will benefit from establishing care with neon installer to monitor your CKD. Patient Instructions: Antibiotic Form, How to Quit Using Smokeless Tobacco (ED) Patient Language: Filipino Stand Alone Forms: General Discharge Information Follow-up/Referrals: Kristian Lopez MD [Physician, Nephrology] - 1 Week Jaya Dailey MD [Primary Care Provider, [facility]] - 1 Week Discharge Medications: New furosemide [Lasix] 40 mg tablet 40 mg PO BID 30 Days Qty: 60 0RF Continued aspirin 81 mg Tablet,Delayed Release (Dr/Ec) 81 mg PO QAM Qty: 30 2RF metoprolol succinate [Toprol XL] 25 mg Tablet Extended Release 24 Hr 25 mg PO QAM Qty: 30 2RF Minerin Creme Cream 1 applic topical DAILY Qty: 113 2RF Rx Instructions: Apply to both legs and feet to intact skin daily sacubitril-valsartan [Entresto] 24-26 mg Tablet 0.5 tab PO Q12HR Qty: 30 2RF Eliquis 5 mg tablet 5 mg PO Q12H Qty: 180 6RF Patient Comments: Pt started taking again today. (DME) [employer] No Coding Strip See Rx Instructions .ROUTE .MEDSUPPLY Qty: 50 0RF Rx Instructions: Use to check BS 4 times daily Date of admission: 09/17/25 09:40 Primary Care Provider: Jaya Dailey Admitting Provider: Vi Goodwin Attending physician on admission: Vi Goodwin Condition: Stable Hospitalist MIPS Heart Failure (Exclusion) Patient has history of Heart Transplant or Left Ventricular Assistive Device?: No IF YES, STOP HERE Heart Failure (Qualifier) Patient has current or prior documentation of LVEF less than or equal to 40%, or mod/servere depressed LVSF?: Yes IF NO, STOP HERE If Yes, Heart Failure (Qualifier) Patient was prescribed or already taking an Angiotensin-Converting Enzyme (CASSANDRA) Inhibitor, or Antiotensin Receptor Belle (ARB): Yes Patient was prescribed or already taking bisoprolol, carvedilol, or sustained release metoprolol succinate: Yes
[2025-09-23 10:57] VITALS: O2SAT 94
== END 2025-09-23 12:05 | disposition home or self-care (01) | DRG 729 ==
LOC: ANHED 14:26 → ANH3MED 17:59
PROVIDERS: Internal Medicine; Student in an Organized Health Care Education/Training Program; Admitting Provider General Practice; Emergency Provider Emergency Medicine; PCP Family Medicine; Visit Provider Student in an Organized Health Care Education/Training Program
DX: N50.89 Other specified disorders of the male genital organs (principal); I50.23 Acute on chronic systolic (congestive) heart failure; I13.0 Hypertensive heart and chronic kidney disease with heart failure and stage 1 through stage 4 chronic kidney disease, or unspecified chronic kidney disease; Z22.322 Carrier or suspected carrier of Methicillin resistant Staphylococcus aureus; E11.22 Type 2 diabetes mellitus with diabetic chronic kidney disease; G47.33 Obstructive sleep apnea (adult) (pediatric); I48.0 Paroxysmal atrial fibrillation; I25.10 Atherosclerotic heart disease of native coronary artery without angina pectoris; L89.629 Pressure ulcer of left heel, unspecified stage; N18.32 Chronic kidney disease, stage 3b; N31.9 Neuromuscular dysfunction of bladder, unspecified
CPT/HCPCS: 36415; 71045; 80048; 80053; 81001; 83735; 83880; 84145; 85025; 85027; 85055; 87086; 87186; 93005; 94002; 96365; 96375; 96376; 97161; 97165; 99285; A9270; G0378; J0696; J1938